=== PATIENT | female | born 1990 | race African-American/Black ===

== ENCOUNTER 2016-04-26 13:26 | Emergency (ER) | payer OTHER ==
[2016-04-26 13:31] VITALS: TEMP 97.9; BMI 32.8
--- NOTE | 2016-04-26 13:49 | PDOC ---
History of Present Illness - General Chief Complaint: Sickle Cell Crisis Stated Complaint: SICKLE CELL CRISIS Time Seen by Provider: 04/26/16 13:48 - History of Present Illness Initial Comments: 04/26/16 13:56 The pt is a 25 year old female with a significant PMH of sickle cell anemia, ( multiple hospitalizations for sickle cell crisis in the past, asplenic), esophageal varicose veins, portal hypertension, liver cirrhosis, hx of RA thrombus who comes to ED complaining of mid to lower back pain. It is severe, 7/ 10, constant, no radiation. She takes Oxycodone for pain but that hasn't helped her today. She denies chest pain, SOB, palpitations, abdominal pain, N/V, diarrhea, constipation. She denies fever, chills, muscle pain, dysuria. The pt was hospitalized in [facility] yesterday where she got IVF and pain medications. Past History - Past Medical History Allergies/Adverse Reactions: Allergies Allergy/AdvReac Type Severity Reaction Status Date / Time morphine Allergy Verified 04/26/16 13:31 Home Medications: Ambulatory Orders Apixaban [Eliquis] 10 mg DAILY 04/26/16 FENTANYL 25mcg PATCH [DURAGESIC 25mcg PATCH -] 1 each TD Q72H 04/26/16 Folic Acid 2 mg PO DAILY 04/26/16 Hydroxyurea [Hydrea] 500 mg PO BID 04/26/16 Nadolol 40 mg PO DAILY 04/26/16 Ondansetron HCl [Zofran] 4 mg PO ASDIR PRN 04/26/16 Oxycodone HCl 5 mg PO TID PRN 04/26/16 Anemia: (sickle cell) HTN: Yes (Portal hypertension) Liver Disease: Yes (Cirrhosis) - Surgical History Abdominal Surgery: Yes (spleen) Appendectomy: Yes Cholecystectomy: Yes - Psycho/Social/Smoking Cessation Hx Suicidal Ideation: No Smoking History: Never smoked Information on smoking cessation initiated: No Hx Alcohol Use: No Drug/Substance Use Hx: No Substance Use Type: None Review of Systems - Review of Systems Able to Perform ROS?: Yes Comments:: 04/26/16 14:06 REVIEW OF SYSTEMS CONSTITUTIONAL: Absent: fever, chills, diaphoresis, generalized weakness, malaise HEENT: Absent: rhinorrhea, nasal congestion, throat pain, throat swelling, difficulty swallowing CARDIOVASCULAR: Absent: chest pain, syncope, palpitations, irregular heart rate, lightheadedness , peripheral edema RESPIRATORY: Absent: cough, shortness of breath, dyspnea with exertion, orthopnea, wheezing GASTROINTESTINAL: Absent: abdominal pain, abdominal distension, nausea, vomiting, diarrhea, constipation, melena, hematochezia GENITOURINARY: Absent: dysuria, frequency, urgency, hesitancy, hematuria, flank pain, genital pain MUSCULOSKELETAL: mid to lower back pain Absent: myalgia, joint swelling, back pain, neck pain SKIN: Absent: rash, itching, pallor NEUROLOGIC: Absent: headache, focal weakness or paresthesias, dizziness, unsteady gait, seizure, mental status changes, bladder or bowel incontinence Is the patient limited Bermudian proficient: No *Physical Exam - Vital Signs Last Vital Signs Temp Pulse Resp BP Pulse Ox 97.9 F 78 18 131/76 100 04/26/16 13:28 04/26/16 13:28 04/26/16 13:28 04/26/16 13:28 04/26/16 13:28 - Physical Exam Comments: 04/26/16 14:09 GENERAL: The patient is awake, alert, and fully oriented, in no acute distress. HEAD: Normal with no signs of trauma. EYES: PERRL, extraocular movements intact, sclera anicteric, conjunctiva clear. No ptosis. ENT: Ears normal, nares patent, oropharynx clear without exudates, moist mucous membranes. NECK: Trachea midline, full range of motion, supple. LUNGS: Breath sounds equal, clear to auscultation bilaterally, no wheezes, no crackles, no accessory muscle use. HEART: Regular rate and rhythm, S1, S2 without murmur, rub or gallop. ABDOMEN: Obese, soft, nontender, nondistended, normoactive bowel sounds, no guarding, no rebound, no hepatosplenomegaly, no masses. EXTREMITIES: no edema. NEUROLOGICAL: Normal speech, no facial asymmetry, motor 5/5 in all extremities , gait not observed. PSYCH: Normal mood, normal affect. SKIN: Warm, dry, normal turgor, no rashes or lesions noted ED Treatment Course - LABORATORY CBC & Chemistry Diagram: 04/26/16 14:00 04/26/16 14:00 Medical Decision Making - Medical Decision Making 04/26/16 16:19 The pt is complaining of back pain. We are suspecting sickle cell crisis. We ordered CMP, chemistry, Reticulocyte count. The results were: Ret count 5.49, other laboratory shower no gross abnormalities. She was given Dilaudid 3 mg IV total, Benadryl 25 mg PO and NS 1 L. The pt clinically improved. She wanted to be discharged from ED. We recommended to see PCP in a week. *DC/Admit/Observation/Transfer Diagnosis at time of Disposition: Sickle cell anemia - Discharge Dispostion Disposition: HOME Condition at time of disposition: Improved Admit: No
[2016-04-26] MEDS ORDERED: SODIUM CHLORIDE 1,000 ML IV STA (13:55)
[2016-04-26] MEDS ORDERED: HYDROmorphone HCL CARPU-JECT 1 MG/1 ML DISP.SYRIN IVPB ONE ×3 (13:56→15:34)
[2016-04-26] MEDS ORDERED: HYDROmorphone HCL CARPU-JECT 1 MG/1 ML DISP.SYRIN ONE ×3 (14:01→15:38)
[2016-04-26] MEDS ORDERED: diphenhydrAMINE HCL 25 MG CAPSULE (FP) PO ONE ×2 (14:08→14:15)
[2016-04-26 14:15] LABS: MCH 31.6 pg (25.7-33.7)
[2016-04-26 14:25] LABS: MCHC 33.7 g/dl (32.0-36.0); MEAN CELL VOLUME 93.9 fl (80-96); MEAN PLT VOLUME 8.5 fl (7.5-11.1); PLATELET COUNT 273 K/MM3 (134-434); RDW 18.7 % (11.6-15.6); WHITE BLOOD COUNT 8.4 K/mm3 (4.0-10.0)
[2016-04-26 14:28] LABS: INR 1.19 (0.82-1.09); PROTHROMBIN TIME (PATIENT) 13.1 SEC (9.98-11.88)
[2016-04-26 15:15] LABS: ALBUMIN 3.7 g/dl (3.4-5.0); ANION GAP 11 (8-16); BILIRUBIN,TOTAL 1.4 mg/dL (0.2-1.0); CALCIUM 8.8 mg/dL (8.5-10.1); CO2 26 mmol/L (21-32); CREATININE 0.6 mg/dL (0.55-1.02); GLUCOSE,RANDOM 86 mg/dL (74-106); SGOT/AST 51 U/L (15-37); SGPT/ALT 26 U/L (12-78); TOT PROT 8.6 g/dl (6.4-8.2)
[2016-04-26 15:16] LABS: ALK PHOS 186 U/L (45-117)
[2016-04-26 15:37] LABS: PLATELET ESTIMATE ADEQUATE (NORMAL)
[2016-04-26 15:40] LABS: ANISOCYTOSIS 3+; HYPOCHROMIA 3+; MICROCYTOSIS FEW; POIKILOCYTOSIS 2+; POLYCHROMASIA 1+
[2016-04-26 15:41] LABS: OVALOCYTES FEW; TARGET CELLS 4+; TEAR DROP CELLS FEW
--- NOTE | 2016-04-26 16:24 | PDOC ---
Attending Attestation - Resident Resident Name: Cami Davis - ED Attending Attestation I have performed the following: I have examined & evaluated the patient, The case was reviewed & discussed with the resident, I agree w/resident's findings & plan - HPI HPI: 04/26/16 16:24 25y F hs of sickle cell on chronic pain meds, on fentanyl patch, follows with hematology at [facility] presents with lower back pain, c/w prior episodes - pt states her PO meds not helping. no associated fever/chills, headache, dizziness , cp, sob, palptiations, extremity pain or swelling. exam as documented by resident. Pts labs nreivewed - noted for retic of 5, hgb of 9.7. pt feeling better after receiving pain meds here. will d/c the pt with pmd/hemonc f/u return precautions were discussed - Physicial Exam PE: 04/27/16 08:35 see above - Medical Decision Making 04/27/16 08:35 see above
[2016-04-26 17:03] VITALS: BP 121/61; PULSE 74
== END 2016-04-26 17:03 | disposition home or self-care (01) ==
LOC: JER 13:26
PROC: 3E0337Z Introduction of Electrolytic and Water Balance Substance into Peripheral Vein, Percutaneous Approach (ICD-10-PCS; principal; 2016-04-26)
PROC: 3E033NZ Introduction of Analgesics, Hypnotics, Sedatives into Peripheral Vein, Percutaneous Approach (ICD-10-PCS; 2016-04-26)
DX: D57.00 Hb-SS disease with crisis, unspecified (principal); K76.6 Portal hypertension; K74.60 Unspecified cirrhosis of liver
CPT/HCPCS: 36415; 80053; 84703; 85025; 85044; 85610; 99284-25

== ENCOUNTER 2016-06-01 21:20 | Emergency (ER) | payer OTHER ==
--- NOTE | 2016-06-01 22:16 | PDOC ---
[id number]: BACK PAIN Time Seen by Provider: 06/01/16 22:16 History Source: Patient Exam Limitations: No Limitations - History of Present Illness Initial Comments: 06/02/16 00:01 This is a 26-year-old female who has history of sickle cell anemia and comes in complaining of a painful crisis. Patient eloped could complete my evaluation On examination of the patient. Past History - Past Medical History Allergies/Adverse Reactions: Allergies Allergy/AdvReac Type Severity Reaction Status Date / Time morphine Allergy Verified 04/26/16 13:31 Home Medications: Ambulatory Orders Apixaban [Eliquis] 10 mg DAILY 04/26/16 FENTANYL 25mcg PATCH [DURAGESIC 25mcg PATCH -] 1 each TD Q72H 04/26/16 Folic Acid 2 mg PO DAILY 04/26/16 Hydroxyurea [Hydrea] 500 mg PO BID 04/26/16 Nadolol 40 mg PO DAILY 04/26/16 Ondansetron HCl [Zofran] 4 mg PO ASDIR PRN 04/26/16 Oxycodone HCl 5 mg PO TID PRN 04/26/16 Anemia: (sickle cell) HTN: Yes (Portal hypertension) Liver Disease: Yes (Cirrhosis) - Surgical History Abdominal Surgery: Yes (spleen) Appendectomy: Yes Cholecystectomy: Yes - Psycho/Social/Smoking Cessation Hx Suicidal Ideation: No Smoking History: Never smoked Hx Alcohol Use: No Drug/Substance Use Hx: No Substance Use Type: None *DC/Admit/Observation/Transfer Diagnosis at time of Disposition: Eloped Sickle cell anemia Qualifiers: Sickle-cell associated disorders: with unspecified crisis Qualified Code(s): D57.00 - Hb-SS disease with crisis, unspecified; D57.0 - Hb-SS disease with crisis - Discharge Dispostion Disposition: ELOPED Condition at time of disposition: Good
[2016-06-01 22:21] VITALS: BP 113/66; PULSE 87; TEMP 97.8; BMI 33.1
[2016-06-01] MEDS ORDERED: HYDROmorphone HCL CARPU-JECT 1 MG/1 ML DISP.SYRIN IVPUSH ONE (22:29)
[2016-06-01] MEDS ORDERED: SODIUM CHLORIDE 1,000 ML IV ONE (22:29)
== END 2016-06-01 22:44 | disposition left against medical advice (07) ==
LOC: FER 21:20
DX: Z53.21 Procedure and treatment not carried out due to patient leaving prior to being seen by health care provider (principal); D57.00 Hb-SS disease with crisis, unspecified; K76.6 Portal hypertension; K74.60 Unspecified cirrhosis of liver; D64.9 Anemia, unspecified
CPT/HCPCS: 36415; 99283-25

== ENCOUNTER 2017-02-23 00:21 | Emergency (ER) | payer OTHER ==
--- NOTE | 2017-02-23 00:51 | PDOC ---
History of Present Illness - General History Source: Patient Exam Limitations: No Limitations - History of Present Illness Initial Comments: 02/23/17 01:07 The patient is a 26 year old female with past medical history of sickle cell anemia, esophageal varicose veins, portal hypertension, liver cirrhosis, and blood clots who presents to the ED with complaints of sickle cell crisis for the past few days. The patent complains of generalized pain all over her body as well as nausea. She states she took oxycodone and tylenol as well as a fentanyl patch which gave her no relief. She reports when she is in the ED she receives dilaudid, benadryl and zofran. She reports her crisis is similar to the ones she's had in the past. The patient denies fever, chills, vomiting, diarrhea, cough, SOB, or urinary symptoms. <Sarah Sanders - Last Filed: 02/23/17 01:07> <Concetta Miller - Last Filed: 02/23/17 01:25> <Yane Hernandez - Last Filed: 02/23/17 21:09> - General Chief Complaint: Pain Stated Complaint: PAIN,SICKLE CELL Time Seen by Provider: 02/23/17 00:51 Past History <Sarah Sanders - Last Filed: 02/23/17 01:07> - Past Medical History Anemia: (sickle cell) Cardiac Disorders: Yes (RIGHT ATRIAL CLOT (RESOLVED)) GI Disorders: Yes (BENIGN LIVER CYST) HTN: Yes (Portal hypertension) Liver Disease: Yes (Cirrhosis) - Surgical History Abdominal Surgery: Yes (spleen) Appendectomy: Yes Cholecystectomy: Yes - Suicide/Smoking/Psychosocial Hx Smoking History: Never smoked Have you smoked in the past 12 months: No Information on smoking cessation initiated: No Hx Alcohol Use: No Drug/Substance Use Hx: No Substance Use Type: None <Concetta Miller - Last Filed: 02/23/17 01:25> <Yane Hernandez - Last Filed: 02/23/17 21:09> - Past Medical History Allergies/Adverse Reactions: Allergies Allergy/AdvReac Type Severity Reaction Status Date / Time morphine Allergy Verified 02/23/17 00:37 Home Medications: Ambulatory Orders Apixaban [Eliquis] 10 mg DAILY 04/26/16 FENTANYL 25mcg PATCH [DURAGESIC 25mcg PATCH -] 1 each TD Q72H 04/26/16 Folic Acid 2 mg PO DAILY 04/26/16 Hydroxyurea [Hydrea] 500 mg PO BID 04/26/16 Nadolol 40 mg PO DAILY 04/26/16 Ondansetron HCl [Zofran] 4 mg PO ASDIR PRN 04/26/16 Oxycodone HCl 5 mg PO TID PRN 04/26/16 Review of Systems - Review of Systems Able to Perform ROS?: Yes Comments:: 02/23/17 01:11 GENERAL/CONSTITUTIONAL: No fever or chills. No weakness. HEAD, EYES, EARS, NOSE AND THROAT: No change in vision. No ear pain or discharge. No sore throat. CARDIOVASCULAR: No chest pain or shortness of breath. RESPIRATORY: No cough, wheezing, or hemoptysis. GASTROINTESTINAL: Present: nausea No vomiting, diarrhea or constipation. GENITOURINARY: No dysuria, frequency, or change in urination. MUSCULOSKELETAL: Present: generalized body aches SKIN: No rash NEUROLOGIC: No headache, vertigo, loss of consciousness, or change in strength/ sensation. ENDOCRINE: No increased thirst. No abnormal weight change. HEMATOLOGIC/LYMPHATIC: No anemia, easy bleeding, or history of blood clots. ALLERGIC/IMMUNOLOGIC: No hives or skin allergy. All Other Systems: Reviewed and Negative <Sarah Sanders - Last Filed: 02/23/17 01:07> *Physical Exam - Vital Signs Last Vital Signs Temp Pulse Resp BP Pulse Ox 98.4 F 87 20 114/71 98 02/23/17 00:37 02/23/17 00:37 02/23/17 00:37 02/23/17 00:37 02/23/17 00:37 - Physical Exam Comments: 02/23/17 01:12 GENERAL: Awake, alert, and fully oriented, in no acute distress HEAD: No signs of trauma EYES: PERRLA, EOMI, sclera anicteric, conjunctiva clear ENT: Auricles normal inspection, hearing grossly normal, nares patent, oropharynx clear without exudates. Moist mucosa NECK: Normal ROM, supple, no lymphadenopathy, JVD, or masses LUNGS: Breath sounds equal, clear to auscultation bilaterally. No wheezes, and no crackles HEART: Regular rate and rhythm, normal S1 and S2, no murmurs, rubs or gallops ABDOMEN: Soft, nontender, normoactive bowel sounds. No guarding, no rebound. No masses EXTREMITIES: Normal range of motion, no edema. No clubbing or cyanosis. No cords, erythema, or tenderness NEUROLOGICAL: Cranial nerves II through XII grossly intact. Normal speech, normal gait SKIN: Warm, Dry, normal turgor, no rashes or lesions noted. <Sarah Sanders - Last Filed: 02/23/17 01:07> - Vital Signs Last Vital Signs Temp Pulse Resp BP Pulse Ox 98.4 F 87 20 114/71 98 02/23/17 00:37 02/23/17 00:37 02/23/17 00:37 02/23/17 00:37 02/23/17 00:37 <Concetta Miller - Last Filed: 02/23/17 01:25> - Vital Signs Last Vital Signs Temp Pulse Resp BP Pulse Ox 98.4 F 87 20 114/71 98 02/23/17 00:37 02/23/17 00:37 02/23/17 00:37 02/23/17 00:37 02/23/17 00:37 <Yane Hernandez - Last Filed: 02/23/17 21:09> ED Treatment Course - LABORATORY CBC & Chemistry Diagram: 02/23/17 02:00 02/23/17 02:00 - ADDITIONAL ORDERS Additional order review: Laboratory Results 02/23/17 02:00 Sodium 141 Potassium 4.0 Chloride 101 Carbon Dioxide 31 Anion Gap 9 BUN 12 Creatinine 0.8 Creat Clearance w eGFR > 60 Random Glucose 109 H Calcium 8.7 Total Bilirubin 1.3 H AST 51 H ALT 27 Alkaline Phosphatase 179 H Total Protein 8.5 H Albumin 3.5 02/23/17 02:00 RBC 3.25 L MCV 91.5 MCHC 33.3 RDW 17.4 H MPV 8.1 Neutrophils % 57.7 D Lymphocytes % 26.6 D Monocytes % 14.0 H Eosinophils % 1.0 Basophils % 0.7 - Medications Given in the ED: ED Medications Discontinued Medications Generic Name Dose Route Start Last Admin Trade Name Freq PRN Reason Stop Dose Admin Diphenhydramine HCl 50 mg 02/23/17 01:08 02/23/17 02:02 Benadryl Injection - IVPUSH 02/23/17 01:09 50 mg ONCE ONE Administration Diphenhydramine HCl 50 mg 02/23/17 03:44 02/23/17 04:21 Benadryl - PO 02/23/17 03:45 Not Given ONCE ONE Diphenhydramine HCl 50 mg 02/23/17 04:08 02/23/17 04:21 Benadryl Injection - IVPB 02/23/17 04:09 50 mg ONCE ONE Administration Hydromorphone HCl 2 mg 02/23/17 01:08 02/23/17 02:02 Dilaudid Injection - IVPUSH 02/23/17 01:09 2 mg ONCE ONE Administration Hydromorphone HCl 2 mg 02/23/17 04:08 02/23/17 04:21 Dilaudid Injection - IVPUSH 02/23/17 04:09 2 mg ONCE ONE Administration Ondansetron HCl 4 mg 02/23/17 01:08 02/23/17 02:02 Zofran Injection IVPUSH 02/23/17 01:09 4 mg ONCE ONE Administration <Yane Hernandez - Last Filed: 02/23/17 21:09> Medical Decision Making - Medical Decision Making 02/23/17 01:25 pt presents to the ED complaining of generalized body pain consistent with prior sickle cell crises. Denies fever, chest pain and shortness of breath. Will check labs to rule out severe anemia and retic count to rule out aplastic crisis. Will give pain control and reassess. <Concetta Miller - Last Filed: 02/23/17 01:25> - Medical Decision Making 02/23/17 21:07 Pt given 2 more rounds of dilaudid and benadryl and she was discharged. <Yane Hernandez - Last Filed: 02/23/17 21:09> *DC/Admit/Observation/Transfer - Attestations Scribe Attestion: 02/23/17 01:13 Documentation prepared by Sarah Sanders, acting as medical device assembler for Concetta Miller MD. <Sarah Sanders - Last Filed: 02/23/17 01:07> <Concetta Miller - Last Filed: 02/23/17 01:25> - Discharge Dispostion Admit: No <Yane Hernandez - Last Filed: 02/23/17 21:09> Diagnosis at time of Disposition: Sickle cell anemia - Discharge Dispostion Disposition: HOME Condition at time of disposition: Stable - Patient Instructions Printed Discharge Instructions: Sickle Cell Disease (Alternative Therapy), DI for Chronic Neck Pain
[2017-02-23 00:56] VITALS: BP 114/71; PULSE 87; TEMP 98.4; BMI 38.9
[2017-02-23] MEDS ORDERED: ONDANSETRON 4 MG/2 ML VIAL IVPUSH ONE (01:08)
[2017-02-23] MEDS ORDERED: HYDROmorphone HCL CARPU-JECT 2 MG/1 ML DISP.SYRIN IVPUSH ONE ×3 (01:08→05:49)
[2017-02-23] MEDS ORDERED: HYDROmorphone HCL CARPU-JECT 2 MG/1 ML DISP.SYRIN ONE ×4 (01:13→06:10)
[2017-02-23] MEDS ORDERED: ONDANSETRON 4 MG/2 ML VIAL ONE ×2 (01:14→06:10)
[2017-02-23 02:09] LABS: BASO % 0.7 % (0-2.0); HEMATOCRIT 29.8 % (32.4-45.2); HEMOGLOBIN 9.9 GM/dL (10.7-15.3); LYMPH % 26.6 % (8-40); MCH 30.5 pg (25.7-33.7); MCHC 33.3 g/dl (32.0-36.0); MEAN CELL VOLUME 91.5 fl (80-96); MEAN PLT VOLUME 8.1 fl (7.5-11.1); NEUT % 57.7 % (42.8-82.8); PLATELET COUNT 252 K/MM3 (134-434); RBC 3.25 M/mm3 (3.60-5.2); RDW 17.4 % (11.6-15.6); RETICULOCYTES 4.36 % (0.5-1.5); WHITE BLOOD COUNT 8.7 K/mm3 (4.0-10.0)
[2017-02-23 02:45] LABS: ALBUMIN 3.5 g/dl (3.4-5.0); ANION GAP 9 (8-16); BILIRUBIN,TOTAL 1.3 mg/dL (0.2-1.0); BLOOD UREA NITROGEN 12 mg/dL (7-18); CALCIUM 8.7 mg/dL (8.5-10.1); CHLORIDE 101 mmol/L (98-107); CO2 31 mmol/L (21-32); CREATININE 0.8 mg/dL (0.55-1.02); GLUCOSE,RANDOM 109 mg/dL (74-106); SGOT/AST 51 U/L (15-37); SGPT/ALT 27 U/L (12-78); SODIUM 141 mmol/L (136-145); TOT PROT 8.5 g/dl (6.4-8.2)
[2017-02-23 02:46] LABS: ALK PHOS 179 U/L (45-117)
[2017-02-23] MEDS ORDERED: diphenhydrAMINE HCL 50 MG CAPSULE PO ONE (03:44)
[2017-02-23] MEDS ORDERED: diphenhydrAMINE HCL 25 MG CAPSULE (FP) PO ONE (03:47)
[2017-02-23 04:36] LABS: SICKLE CELL SCREEN POSITIVE (NEGATIVE)
== END 2017-02-23 07:19 | disposition home or self-care (01) ==
LOC: JER 00:21
PROC: 3E033NZ Introduction of Analgesics, Hypnotics, Sedatives into Peripheral Vein, Percutaneous Approach (ICD-10-PCS; principal; 2017-02-23)
PROC: 3E033GC Introduction of Other Therapeutic Substance into Peripheral Vein, Percutaneous Approach (ICD-10-PCS; 2017-02-23)
PROC: 3E033GC Introduction of Other Therapeutic Substance into Peripheral Vein, Percutaneous Approach (ICD-10-PCS; 2017-02-23)
DX: D57.00 Hb-SS disease with crisis, unspecified (principal); K74.69 Other cirrhosis of liver; K76.6 Portal hypertension; I85.10 Secondary esophageal varices without bleeding
CPT/HCPCS: 36415; 80053; 83021; 85025; 85044; 85660; 96374; 96375; 96376; 99282-25

== ENCOUNTER 2017-03-28 21:11 | Emergency (ER) | payer OTHER ==
[2017-03-28 22:11] VITALS: BP 100/60; PULSE 78; TEMP 98.5; BMI 38.9
--- NOTE | 2017-03-29 00:28 | PDOC ---
History of Present Illness - General Chief Complaint: Sickle Cell Crisis Stated Complaint: SICKLE CELL CRISIS Time Seen by Provider: 03/28/17 23:55 History Source: Patient Exam Limitations: No Limitations - History of Present Illness Initial Comments: 03/29/17 00:31 26F w pmh of sickle cell anemia, esophageal varicose veins, portal hypertension , liver cirrhosis, and blood clots who presents to the ED with complaints of sickle cell crisis today. Complains of generalized pain all over her body as well as nausea. She states she took her usual 20mg oxycodone and fentanyl patch which gave her no relief. She reports when she is in the ED she receives dilaudid, benadryl and zofran. She reports her crisis is similar to the ones she 's had in the past. The patient denies fever, chills, vomiting, diarrhea, cough , SOB, or urinary symptoms. Past History - Past Medical History Allergies/Adverse Reactions: Allergies Allergy/AdvReac Type Severity Reaction Status Date / Time morphine Allergy Verified 03/28/17 22:11 Home Medications: Ambulatory Orders Apixaban [Eliquis] 10 mg DAILY 04/26/16 FENTANYL 25mcg PATCH [DURAGESIC 25mcg PATCH -] 1 each TD Q72H 04/26/16 Folic Acid 2 mg PO DAILY 04/26/16 Hydroxyurea [Hydrea] 500 mg PO BID 04/26/16 Nadolol 40 mg PO DAILY 04/26/16 Ondansetron HCl [Zofran] 4 mg PO ASDIR PRN 04/26/16 Oxycodone HCl 5 mg PO TID PRN 04/26/16 Anemia: (sickle cell) Cardiac Disorders: Yes (RIGHT ATRIAL CLOT (RESOLVED)) COPD: No GI Disorders: Yes (BENIGN LIVER CYST) HTN: Yes (Portal hypertension) Liver Disease: Yes (Cirrhosis) - Surgical History Abdominal Surgery: Yes (spleen) Appendectomy: Yes Cholecystectomy: Yes - Suicide/Smoking/Psychosocial Hx Smoking History: Never smoked Have you smoked in the past 12 months: No Information on smoking cessation initiated: No Hx Alcohol Use: No Drug/Substance Use Hx: No Substance Use Type: None Review of Systems - Review of Systems Able to Perform ROS?: Yes Is the patient limited Upper Sorbian proficient: No Constitutional: No: Symptoms Reported HEENTM: No: Symptoms Reported Respiratory: No: Symptoms reported Cardiac (ROS): No: Symptoms Reported ABD/GI: No: Symptoms Reported : No: Symptoms Reported Musculoskeletal: Yes: See HPI Neurological: No: Symptoms reported Endocrine: No: Symptoms Reported Hematologic/Lymphatic: No: Symptoms Reported All Other Systems: Reviewed and Negative *Physical Exam - Vital Signs Last Vital Signs Temp Pulse Resp BP Pulse Ox 98.5 F 78 18 100/60 100 03/28/17 22:08 03/28/17 22:08 03/28/17 22:08 03/28/17 22:08 03/28/17 22:08 - Physical Exam General Appearance: Yes: Nourished, Appropriately Dressed, Moderate Distress HEENT: positive: EOMI, RANULFO, Normal ENT Inspection Neck: negative: Tender Respiratory/Chest: positive: Lungs Clear, Normal Breath Sounds. negative: Chest Tender, Respiratory Distress Cardiovascular: positive: Regular Rhythm, Regular Rate, S1, S2 Gastrointestinal/Abdominal: positive: Normal Bowel Sounds, Flat, Soft. negative : Tender Extremity: positive: Normal Capillary Refill, Normal Inspection Integumentary: positive: Normal Color, Dry, Warm Neurologic: positive: Fully Oriented, Alert, Normal Mood/Affect, Normal Response , Motor Strength 5/5 Medical Decision Making - Medical Decision Making 03/29/17 00:36 Patient to receive dilaudid/benadryl/zofran through catheter 03/29/17 05:38 2 series of medication. with NS bolus. Heparin flush and discharged. *DC/Admit/Observation/Transfer Diagnosis at time of Disposition: Sickle cell crisis - Discharge Dispostion Disposition: HOME Admit: No - Referrals - Patient Instructions Printed Discharge Instructions: DI for Sickle Cell Anemia, Pain Crisis -- Adult Additional Instructions: Come back to the Er for any new, worsening or concerning symptom. Follow up with your primary care provider for management of your illness within the next 2-3 days. - Post Discharge Activity
[2017-03-29] MEDS ORDERED: HYDROmorphone HCL CARPU-JECT 2 MG/1 ML DISP.SYRIN IVPUSH ONE ×3 (00:29→04:31)
[2017-03-29] MEDS ORDERED: ONDANSETRON 4 MG/2 ML VIAL IVPUSH ONE (00:29)
[2017-03-29] MEDS ORDERED: HYDROmorphone HCL CARPU-JECT 1 MG/1 ML DISP.SYRIN ONE ×2 (01:02→02:40)
[2017-03-29] MEDS ORDERED: ONDANSETRON 4 MG/2 ML VIAL ONE (01:02)
--- NOTE | 2017-03-29 01:21 | PDOC ---
Attending Attestation - HPI HPI: 03/29/17 01:29 The patient is a 26 year old female with a significant PMH of sickle cell anemia , portal HTN, esophageal varicose veins, and liver cirrhosis who presents to the emergency department for evaluation of sickle cell crisis. She reports generalized pain and nausea beginning today. She reports taking her usual oxycodone and fentanyl doses to minimal relief. She presents requesting dilaudid , benadryl, and zofran. She denies chest pain, shortness of breath, or fever. Allergies: Morphine <Curtis Mojica - Last Filed: 03/29/17 02:03> - Resident Resident Name: Nicholas Schmitt - ED Attending Attestation I have performed the following: I have examined & evaluated the patient, The case was reviewed & discussed with the resident, I agree w/resident's findings & plan, Exceptions are as noted - Physicial Exam PE: 03/29/17 02:39 *Physical Exam General Appearance: Yes: Appropriately Dressed, moderate distress No: Intoxicated HEENT: positive: EOMI, RANULFO, Normal ENT Inspection, Normal Voice, TMs Normal, Pharynx Normal. negative: Pale Conjunctivae, Photophobia, Scleral Icterus (R), Scleral Icterus (L) Neck: positive: Trachea midline, Normal Thyroid, Supple. negative: Tender, Rigid, Carotid bruit, Stridor, Lymphadenopathy (R), Lymphadenopathy (L), Thyromegaly Respiratory/Chest: positive: Lungs Clear, Normal Breath Sounds. port in right upper chest negative: Chest Tender, Respiratory Distress, Accessory Muscle Use, Labored Respiration, RES, Crackles, Rales, Rhonchi, Stridor, Wheezing, Dullness Cardiovascular: positive: Regular Rhythm, Regular Rate, S1, S2. negative: Edema , JVD, Murmur, Bradycardia, Tachycardia Vascular Pulses: Dorsalis-Pedis (R): 2+, Doralis-Pedis (L): 2+ Gastrointestinal/Abdominal: positive: Normal Bowel Sounds, Flat, Soft. negative : Tender, Organomegaly, Pulsatile Mass, Increased Bowel Sounds, Decreased BS, Distended, Guarding, Rebound, Hernia, Hepatomegaly, Spleenomegaly Lymphatic: negative: Adenopathy, Tenderness Musculoskeletal: positive: Normal Inspection. negative: CVA Tenderness, Decreased Range of Motion Extremity: positive: Normal Capillary Refill, Normal Inspection, Normal Range of Motion, Pelvis Stable. negative: Tender, Pedal Edema, Swelling, Erythema Integumentary: positive: Normal Color, Dry, Warm. negative: Cyanotic, Erythema , Jaundice, Rash Neurologic: positive: research leader II-XII NML intact, Fully Oriented, Alert, Normal Mood/ Affect, Motor Strength 5/5. negative: EOM Palsy, Facial Droop, Sensory Deficit <Walker Disla - Last Filed: 03/29/17 02:40>
[2017-03-29] MEDS ORDERED: HYDROmorphone HCl/Pf 2 MG/ML VIAL - FOR OR PYXIS USE ONE ×2 (03:04→04:36)
[2017-03-29] MEDS ORDERED: SODIUM CHLORIDE 1,000 ML IV STA (04:43)
== END 2017-03-29 06:08 | disposition home or self-care (01) ==
LOC: JER 21:11
PROC: 3E033NZ Introduction of Analgesics, Hypnotics, Sedatives into Peripheral Vein, Percutaneous Approach (ICD-10-PCS; principal; 2017-03-28)
DX: D57.00 Hb-SS disease with crisis, unspecified (principal); K76.6 Portal hypertension; I85.10 Secondary esophageal varices without bleeding; K74.69 Other cirrhosis of liver; I74.9 Embolism and thrombosis of unspecified artery
CPT/HCPCS: 99282-25

== ENCOUNTER 2017-04-09 12:33 | Emergency (ER) | payer OTHER ==
[2017-04-09 12:44] VITALS: BP 136/98; PULSE 78; TEMP 98; BMI 38.9
[2017-04-09] MEDS ORDERED: HYDROmorphone HCL CARPU-JECT 2 MG/1 ML DISP.SYRIN IVPUSH ONE ×3 (13:06→17:35)
[2017-04-09] MEDS ORDERED: ONDANSETRON 4 MG/2 ML VIAL IVPUSH ONE (13:06)
[2017-04-09] MEDS ORDERED: SODIUM CHLORIDE 1,000 ML IV STA ×2 (13:07→14:42)
--- NOTE | 2017-04-09 13:14 | PDOC ---
History of Present Illness - General Chief Complaint: Pain Stated Complaint: WEAKNESS/SCC Time Seen by Provider: 04/09/17 12:57 History Source: Patient Exam Limitations: No Limitations - History of Present Illness Initial Comments: 04/09/17 13:14 26-year-old female presents to the ED with complaints of generalized ankle pain which she describes a throbbing pressure associated with mild edema. Patient states she feels her sickle cell disease is in crisis which was attributed to a recent GI bug that she she states she contracted from her 7-year-old daughter. Patient does complain of nausea, vomiting, generalized abdominal cramping and 2 episodes of diarrhea over the past 4 days. Patient states when she is in crisis she normally receives Benadryl, Zofran IV fluids and Dilaudid. Patient states is currently on a fentanyl patch and took oxycodone this morning with minimal relief. Patient denies fever, chills, chest pain, shortness of breath or cough. Patient denies headache or sore throat, visual changes. Timing/Duration: constant, getting worse Severity: moderate Associated Symptoms: reports: nausea/vomiting, weakness (mild generalized) Past History - Travel Traveled outside of the country in the last 30 days: No - Past Medical History Allergies/Adverse Reactions: Allergies Allergy/AdvReac Type Severity Reaction Status Date / Time morphine Allergy Verified 04/09/17 12:40 Home Medications: Ambulatory Orders Apixaban [Eliquis] 10 mg DAILY 04/26/16 FENTANYL 25mcg PATCH [DURAGESIC 25mcg PATCH -] 1 each TD Q72H 04/26/16 Folic Acid 2 mg PO DAILY 04/26/16 Hydroxyurea [Hydrea] 500 mg PO BID 04/26/16 Nadolol 40 mg PO DAILY 04/26/16 Ondansetron HCl [Zofran] 4 mg PO ASDIR PRN 04/26/16 Oxycodone HCl 5 mg PO TID PRN 04/26/16 Anemia: (sickle cell) Cardiac Disorders: Yes (RIGHT ATRIAL CLOT (RESOLVED)) COPD: No DVT: No GI Disorders: Yes (BENIGN LIVER CYST) HTN: Yes (Portal hypertension) Liver Disease: Yes (Cirrhosis) - Surgical History Abdominal Surgery: Yes (spleen) Appendectomy: Yes Cholecystectomy: Yes - Suicide/Smoking/Psychosocial Hx Smoking History: Never smoked Have you smoked in the past 12 months: No Information on smoking cessation initiated: No Hx Alcohol Use: No Drug/Substance Use Hx: No Substance Use Type: None Patient Lives Alone: No Lives with/in: spouse/SO Review of Systems - Review of Systems Able to Perform ROS?: Yes Constitutional: Yes: Weakness HEENTM: No: Symptoms Reported Respiratory: No: Symptoms reported Cardiac (ROS): No: Symptoms Reported ABD/GI: Yes: Nausea, Vomiting, Abdominal cramping : No: Symptoms Reported Musculoskeletal: Yes: Joint Pain (bilateral ankles) Integumentary: No: Symptoms Reported Neurological: Yes: Weakness (mild generalized) Endocrine: No: Symptoms Reported *Physical Exam - Vital Signs Last Vital Signs Temp Pulse Resp BP Pulse Ox 98.0 F 78 18 136/98 100 04/09/17 12:41 04/09/17 12:41 04/09/17 12:41 04/09/17 12:41 04/09/17 12:41 - Physical Exam General Appearance: Yes: Nourished, Appropriately Dressed. No: Apparent Distress HEENT: positive: Pharynx Normal (dry). negative: Pale Conjunctivae Neck: positive: Supple Respiratory/Chest: positive: Lungs Clear, Normal Breath Sounds. negative: Respiratory Distress, Accessory Muscle Use Cardiovascular: positive: Regular Rhythm, Regular Rate. negative: Murmur Vascular Pulses: Dorsalis-Pedis (R): 2+, Doralis-Pedis (L): 2+ Gastrointestinal/Abdominal: positive: Soft. negative: Tenderness Extremity: positive: Normal Capillary Refill, Normal Range of Motion, Tender ( to bilateral ankles with noted mild nonpitting edema without increased warmth) Integumentary: positive: Normal Color, Warm, Moist Neurologic: positive: Motor Strength 5/5 (ambulatory) ED Treatment Course - LABORATORY CBC & Chemistry Diagram: 04/09/17 13:14 04/09/17 14:00 Medical Decision Making - Medical Decision Making 04/09/17 13:20 Patient complains of sickle cell crisis likely due to recent GI symptoms, change in weather, and has been unrelieved with her fentanyl and oxycodone. Patient states takes her daily hydroxyurea and folic acid as prescribed. Patient on exam with bilateral malleolar tenderness with mild edema . Differential diagnosis electrolyte imbalance, sickle cell crisis, dehydration Patient ordered for labs including magnesium, urine and urine , retic count, IV fluids, antiemetics, Benadryl and Dilaudid 04/09/17 15:49 Laboratory Tests 04/26/16 06/01/16 02/23/17 14:00 22:29 02:00 WBC Hgb 9.7 L 9.9 L Hct 29.0 L 29.8 L Monocytes % (Manual) Nucleated RBC % Retic Count 5.49 H Cancelled 4.36 H D Sodium Potassium Chloride Carbon Dioxide Anion Gap BUN Creatinine Random Glucose Calcium Magnesium Total Bilirubin AST ALT Alkaline Phosphatase Total Protein Urine Ketones Urine Blood Urine Nitrite Urine Urobilinogen Ur Leukocyte Esterase Urine WBC (Auto) Urine Bacteria Urine HCG, Qual 04/09/17 04/09/17 04/09/17 13:14 13:15 14:00 WBC 8.9 Hgb 9.6 L Hct 29.2 L Monocytes % (Manual) 11 H Nucleated RBC % 1 H Retic Count 7.33 H D Sodium 140 Potassium 4.2 Chloride 103 Carbon Dioxide 26 Anion Gap 11 BUN 7 Creatinine 0.6 Random Glucose 93 Calcium 9.2 Magnesium 2.1 Total Bilirubin 1.5 H AST 40 H ALT 21 Alkaline Phosphatase 176 H Total Protein 8.4 H Urine Ketones Negative Urine Blood 1+ H Urine Nitrite Negative Urine Urobilinogen 4.0 e.u/dl H Ur Leukocyte Esterase Trace Urine WBC (Auto) 2 Urine Bacteria Rare Urine HCG, Qual Negative Patient ordered for second dose of Dilaudid secondary to continual complaints of discomfort. Patient ordered for the additional 25 mg of Benadryl along with another bag of IV fluid. Patient voiced she is not being admitted. 04/09/17 17:36 Patient remains with approximately 500 mL of normal saline left the back. Patient placed on the pump to encourage fast infusion. Patient also requesting another dose of Dilaudid secondary to pain 10 out of 10. Patient ordered for 2 mg of Dilaudid along with 25 mg of Benadryl. Attending Dr. Pugh agrees with plan. *DC/Admit/Observation/Transfer Diagnosis at time of Disposition: Sickle cell crisis - Discharge Dispostion Disposition: HOME Condition at time of disposition: Fair - Referrals - Patient Instructions Printed Discharge Instructions: Sickle Cell Disease (Alternative Therapy) Additional Instructions: Please follow-up with your band nailer and continue with the medication for sickle cell disease. Please stay well-hydrated. Eat small frequent meals if pain worsens or symptoms worsen. Please return to the nearest ER. - Post Discharge Activity
[2017-04-09 13:30] LABS: HCG,QUALITATIVE URINE NEGATIVE
[2017-04-09 13:31] LABS: URINE APPEARANCE SLCLOUDY; URINE BILIRUBIN NEGATIVE (NEGATIVE); URINE BLOOD 1+ (NEGATIVE); URINE COLOR LTYELLOW; URINE GLUCOSE (UA) NEGATIVE (NEGATIVE); URINE KETONE NEGATIVE (NEGATIVE); URINE LEUK ESTERASE TRACE (NEGATIVE); URINE NITRITE NEGATIVE (NEGATIVE); URINE PROTEIN NEGATIVE (NEGATIVE); URINE UROBILINOGEN 4.0 E.U/dl mg/dL (0.2-1.0)
[2017-04-09 13:38] LABS: EPI CELLS MODERATE /HPF (FEW); URINE BACTERIA RARE /hpf (NONE SEEN); URINE MUCUS RARE
[2017-04-09] MEDS ORDERED: HYDROmorphone HCl/Pf 2 MG/ML VIAL - FOR OR PYXIS USE ONE ×3 (14:03→17:39)
[2017-04-09] MEDS ORDERED: ONDANSETRON 4 MG/2 ML VIAL ONE (14:04)
[2017-04-09 14:22] LABS: HEMATOCRIT 29.2 % (32.4-45.2); HEMOGLOBIN 9.6 GM/dL (10.7-15.3); MCH 29.2 pg (25.7-33.7); MCHC 32.8 g/dl (32.0-36.0); MEAN PLT VOLUME 8.4 fl (7.5-11.1); PLATELET COUNT 259 K/MM3 (134-434); RBC 3.28 M/mm3 (3.60-5.2); RDW 19.9 % (11.6-15.6); RETICULOCYTES 7.33 % (0.5-1.5); WHITE BLOOD COUNT 8.9 K/mm3 (4.0-10.0)
[2017-04-09 14:24] LABS: ADD RBC MORPHOLOGY YES
[2017-04-09 14:34] LABS: ALBUMIN 3.4 g/dl (3.4-5.0); ANION GAP 11 (8-16); BLOOD UREA NITROGEN 7 mg/dL (7-18); CALCIUM 9.2 mg/dL (8.5-10.1); CHLORIDE 103 mmol/L (98-107); CO2 26 mmol/L (21-32); GLUCOSE,RANDOM 93 mg/dL (74-106); MAGNESIUM 2.1 mg/dL (1.8-2.4); POTASSIUM 4.2 mmol/L (3.5-5.1); SODIUM 140 mmol/L (136-145)
[2017-04-09 14:37] LABS: ALK PHOS 176 U/L (45-117); BILIRUBIN,TOTAL 1.5 mg/dL (0.2-1.0); CREATININE 0.6 mg/dL (0.55-1.02); SGOT/AST 40 U/L (15-37); SGPT/ALT 21 U/L (12-78); TOT PROT 8.4 g/dl (6.4-8.2)
[2017-04-09 15:21] LABS: ANISOCYTOSIS 3+; MACROCYTOSIS 2+; SICKELED CELLS 4+; TARGET CELLS 4+
[2017-04-09 15:22] LABS: PLATELET ESTIMATE ADEQUATE
--- NOTE | 2017-04-09 16:34 | PDOC ---
*Physical Exam - Vital Signs Last Vital Signs Temp Pulse Resp BP Pulse Ox 98.0 F 78 18 136/98 100 04/09/17 12:41 04/09/17 12:41 04/09/17 12:41 04/09/17 12:41 04/09/17 12:41 ED Treatment Course - LABORATORY CBC & Chemistry Diagram: 04/09/17 13:14 04/09/17 14:00 - ADDITIONAL ORDERS Additional order review: Laboratory Results 04/09/17 04/09/17 14:00 13:15 Sodium 140 Potassium 4.2 Chloride 103 Carbon Dioxide 26 Anion Gap 11 BUN 7 Creatinine 0.6 Creat Clearance w eGFR > 60 Random Glucose 93 Calcium 9.2 Magnesium 2.1 Total Bilirubin 1.5 H AST 40 H ALT 21 Alkaline Phosphatase 176 H Total Protein 8.4 H Albumin 3.4 Urine Color Ltyellow Urine Appearance Slcloudy Urine pH 7.0 Ur Specific [place] 1.006 Urine Protein Negative Urine Glucose (UA) Negative Urine Ketones Negative Urine Blood 1+ H Urine Nitrite Negative Urine Bilirubin Negative Urine Urobilinogen 4.0 e.u/dl H Ur Leukocyte Esterase Trace Urine WBC (Auto) 2 Urine RBC (Auto) None Ur Epithelial Cells Moderate Urine Bacteria Rare Urine Mucus Rare Urine HCG, Qual Negative 04/09/17 13:14 RBC 3.28 L MCV 89.0 MCHC 32.8 RDW 19.9 H D MPV 8.4 Neutrophils % No Result Required. Lymphocytes % No Result Required. - Medications Given in the ED: ED Medications Discontinued Medications Generic Name Dose Route Start Last Admin Trade Name Kevinq PRN Reason Stop Dose Admin Diphenhydramine HCl 25 mg 04/09/17 13:05 04/09/17 14:16 Benadryl Injection - IVPB 04/09/17 13:06 25 mg ONCE ONE Administration Diphenhydramine HCl 25 mg 04/09/17 15:26 04/09/17 15:49 Benadryl Injection - IVPB 04/09/17 15:27 25 mg ONCE ONE Administration Hydromorphone HCl 2 mg 04/09/17 13:06 04/09/17 14:16 Dilaudid Injection - IVPUSH 04/09/17 13:07 2 mg ONCE ONE Administration Hydromorphone HCl 2 mg 04/09/17 15:26 04/09/17 15:49 Dilaudid Injection - IVPUSH 04/09/17 15:27 2 mg ONCE ONE Administration Sodium Chloride 1,000 mls @ 1,000 mls/hr 04/09/17 13:07 04/09/17 14:16 Normal Saline - IV 04/09/17 14:06 1,000 mls/hr ASDIR STA Administration Sodium Chloride 1,000 mls @ 1,000 mls/hr 04/09/17 14:42 04/09/17 15:49 Normal Saline - IV 04/09/17 15:41 1,000 mls/hr ASDIR STA Administration Ondansetron HCl 4 mg 04/09/17 13:06 04/09/17 14:16 Zofran Injection IVPUSH 04/09/17 13:07 4 mg ONCE ONE Administration Medical Decision Making - Medical Decision Making 04/09/17 16:33 Seen with MLP and agree with care as outlined: 26y/o F with her typical sickle cell crisis in the setting of acute GI illness and dehydration. VSS agree with exam. labs at baseline, slightly elevated retic count received iv fluid rehydration,pain control requesting discharge, understands return criteria. *DC/Admit/Observation/Transfer Diagnosis at time of Disposition: Sickle cell crisis - Referrals - Patient Instructions - Post Discharge Activity
== END 2017-04-09 19:06 | disposition home or self-care (01) ==
LOC: JER 12:33
PROC: 3E033NZ Introduction of Analgesics, Hypnotics, Sedatives into Peripheral Vein, Percutaneous Approach (ICD-10-PCS; principal; 2017-04-09)
PROC: 3E033GC Introduction of Other Therapeutic Substance into Peripheral Vein, Percutaneous Approach (ICD-10-PCS; 2017-04-09)
PROC: 3E033GC Introduction of Other Therapeutic Substance into Peripheral Vein, Percutaneous Approach (ICD-10-PCS; 2017-04-09)
DX: D57.00 Hb-SS disease with crisis, unspecified (principal); K76.6 Portal hypertension; K74.60 Unspecified cirrhosis of liver; Z86.718 Personal history of other venous thrombosis and embolism
CPT/HCPCS: 36415; 80053; 81003; 81015; 83735; 84703; 85025; 85044; 96374; 96375; 96376; 99284-25

== ENCOUNTER 2017-04-30 13:03 | Emergency (ER) | payer OTHER ==
[2017-04-30 13:09] VITALS: BP 116/93; TEMP 98.1; BMI 38.9
[2017-04-30] MEDS ORDERED: ONDANSETRON 4 MG/2 ML VIAL IVPUSH ONE (14:38)
[2017-04-30] MEDS ORDERED: SODIUM CHLORIDE 1,000 ML IV ONE (14:38)
[2017-04-30] MEDS ORDERED: HYDROmorphone HCL CARPU-JECT 2 MG/1 ML DISP.SYRIN IVPUSH ONE (14:38)
[2017-04-30] MEDS ORDERED: APIXABAN 5 MG TABLET PO ONE (14:38)
--- NOTE | 2017-04-30 14:46 | PDOC ---
History of Present Illness - General History Source: Patient Exam Limitations: No Limitations - History of Present Illness Initial Comments: 04/30/17 14:57 The patient is a 26 year old female, with a significant past medical history of sickle cell anemia, esophageal varicose veins, portal hypertension, liver cirrhosis, hypertension, benign tumor of liver, blood clots, who presents to the emergency department for evaluation of, sickle cell crisis. The patient states she has been having generalized body aches since Saturday (2 days ago) and associated symptoms of nausea without vomiting and headache. The patient states she has been taking oxycodone and fentanyl for the body aches with minimal relief. The patient reports increased stressors in her life and the recent cold weather may be related to her sickle cell crisis. The patient states she has a business line controller at [facility] who she follows with for her sickle cell anemia with her next appointment next 05/09/17. She denies recent fevers, chills, or dizziness. She denies recent vomit, diarrhea or constipation. She denies recent dysuria, frequency, urgency or hematuria. She denies recent chest pain or shortness of breath. Allergies: morphine Past surgical history: Cholecystectomy, Appendectomy, , Esophageal band , Splenectomy <Adal Villarreal - Last Filed: 04/30/17 14:57> <Jos Cooney - Last Filed: 04/30/17 16:40> <Lilly Chilel - Last Filed: 04/30/17 19:08> - General Chief Complaint: Sickle Cell Crisis Stated Complaint: SICKLE CELL CRISIS Time Seen by Provider: 04/30/17 14:11 Past History <Adal Villarreal - Last Filed: 04/30/17 14:57> - Past Medical History Anemia: Yes (sickle cell) Cardiac Disorders: Yes (RIGHT ATRIAL CLOT (RESOLVED)) COPD: No DVT: No GI Disorders: Yes (BENIGN LIVER CYST) HTN: Yes (Portal hypertension) Liver Disease: Yes (Cirrhosis) Other medical history: arthritis, benign tumor in liver, blood clot in liver portal vein, atrium - Surgical History Abdominal Surgery: Yes (spleen) Appendectomy: Yes Cholecystectomy: Yes - Suicide/Smoking/Psychosocial Hx Smoking History: Never smoked Have you smoked in the past 12 months: No Information on smoking cessation initiated: No Hx Alcohol Use: No Drug/Substance Use Hx: No Substance Use Type: None <YadielferbebeJos - Last Filed: 04/30/17 16:40> <Lilly Chilel - Last Filed: 04/30/17 19:08> - Past Medical History Allergies/Adverse Reactions: Allergies Allergy/AdvReac Type Severity Reaction Status Date / Time morphine Allergy Verified 04/30/17 13:09 Home Medications: Ambulatory Orders Apixaban [Eliquis] 10 mg DAILY 04/26/16 FENTANYL 25mcg PATCH [DURAGESIC 25mcg PATCH -] 1 each TD Q72H 04/26/16 Folic Acid 2 mg PO DAILY 04/26/16 Hydroxyurea [Hydrea] 500 mg PO BID 04/26/16 Nadolol 40 mg PO DAILY 04/26/16 Ondansetron HCl [Zofran] 4 mg PO ASDIR PRN 04/26/16 Oxycodone HCl 5 mg PO TID PRN 04/26/16 Review of Systems - Review of Systems Constitutional: No: Chills, Fever Respiratory: No: Cough, Shortness of Breath Cardiac (ROS): No: Chest Pain ABD/GI: Yes: Nausea. No: Diarrhea, Vomiting Musculoskeletal: Yes: Joint Pain, Muscle Pain Neurological: Yes: Headache All Other Systems: Reviewed and Negative <Jos Cooney - Last Filed: 04/30/17 16:40> *Physical Exam - Vital Signs Last Vital Signs Temp Pulse Resp BP Pulse Ox 98.1 F 71 18 116/93 98 04/30/17 13:07 04/30/17 13:07 04/30/17 13:07 04/30/17 13:07 04/30/17 13:07 - Physical Exam Comments: 04/30/17 14:58 GENERAL: The patient is awake, alert, and fully oriented. HEAD: Normal with no signs of trauma. EYES: Pupils equal, round and reactive to light, extraocular movements intact, sclera anicteric, conjunctiva clear with no pallor. ENT: Ears normal, nares patent, oropharynx clear without exudates. Moist mucous membranes. NECK: Normal range of motion, supple without lymphadenopathy, JVD, or masses. LUNGS: Breath sounds equal, clear to auscultation bilaterally. No wheeze/ crackles. HEART: Regular rate and rhythm, normal S1 and S2 without murmur or rub. ABDOMEN: Soft/nontender/nondistended. BS wnl. No guarding or rebound. No palpable masses. No hepatosplenomegaly. EXTREMITIES: Normal range of motion, no edema. No clubbing or cyanosis. No cords, erythema, or tenderness. NEUROLOGICAL: Cranial nerves II through XII grossly intact. Normal speech, normal gait. PSYCH: Normal mood, normal affect. SKIN: Warm, Dry, normal turgor, no rashes or lesions noted. <Adal Villarreal - Last Filed: 04/30/17 14:57> - Vital Signs Last Vital Signs Temp Pulse Resp BP Pulse Ox 98.1 F 71 18 116/93 98 04/30/17 13:07 04/30/17 13:07 04/30/17 13:07 04/30/17 13:07 04/30/17 13:07 <Jos Cooney - Last Filed: 04/30/17 16:40> - Vital Signs Last Vital Signs Temp Pulse Resp BP Pulse Ox 98.1 F 76 18 116/93 96 04/30/17 13:07 04/30/17 15:20 04/30/17 13:07 04/30/17 13:07 04/30/17 15:20 <Lilly Chilel - Last Filed: 04/30/17 19:08> ED Treatment Course - LABORATORY CBC & Chemistry Diagram: 04/30/17 15:12 04/30/17 15:12 <Jos Cooney - Last Filed: 04/30/17 16:40> - LABORATORY CBC & Chemistry Diagram: 04/30/17 15:12 04/30/17 15:12 - ADDITIONAL ORDERS Additional order review: Laboratory Results 04/30/17 04/30/17 04/30/17 15:12 15:12 15:12 Sodium Potassium Chloride Carbon Dioxide Anion Gap BUN Creatinine Creat Clearance w eGFR Random Glucose Calcium Total Bilirubin Direct Bilirubin 0.5 H AST ALT Alkaline Phosphatase LD Total Total Protein Albumin Urine Color Ltyellow Urine Appearance Slcloudy Urine pH 6.0 Ur Specific [place] 1.009 Urine Protein Negative Urine Glucose (UA) Negative Urine Ketones Negative Urine Blood Negative Urine Nitrite Negative Urine Bilirubin Negative Urine Urobilinogen 4.0 e.u/dl H Ur Leukocyte Esterase Trace Urine WBC (Auto) 1 Urine RBC (Auto) 1 Ur Epithelial Cells Moderate Urine Bacteria Rare Urine Mucus Rare Urine HCG, Qual Negative Blood Type O POSITIVE Antibody Screen Negative 04/30/17 15:12 Sodium 141 Potassium 4.1 Chloride 105 Carbon Dioxide 25 Anion Gap 11 BUN 7 Creatinine 0.7 Creat Clearance w eGFR > 60 Random Glucose 113 H Calcium 8.9 Total Bilirubin 1.5 H Direct Bilirubin AST 47 H ALT 25 Alkaline Phosphatase 144 H LD Total 564 H Total Protein 8.5 H Albumin 3.6 Urine Color Urine Appearance Urine pH Ur Specific [place] Urine Protein Urine Glucose (UA) Urine Ketones Urine Blood Urine Nitrite Urine Bilirubin Urine Urobilinogen Ur Leukocyte Esterase Urine WBC (Auto) Urine RBC (Auto) Ur Epithelial Cells Urine Bacteria Urine Mucus Urine HCG, Qual Blood Type Antibody Screen 04/30/17 15:12 RBC 3.27 L MCV 89.0 MCHC 34.4 RDW 19.8 H MPV 8.3 Neutrophils % 58.0 Lymphocytes % 26.8 Monocytes % 13.6 H Eosinophils % 1.0 Basophils % 0.6 - Medications Given in the ED: ED Medications Discontinued Medications Generic Name Dose Route Start Last Admin Trade Name Freq PRN Reason Stop Dose Admin Apixaban 5 mg 04/30/17 14:38 04/30/17 16:35 Eliquis - PO 04/30/17 14:39 5 mg ONCE ONE Administration Diphenhydramine HCl 50 mg 04/30/17 15:15 04/30/17 15:27 Benadryl Injection - IVPUSH 04/30/17 15:16 50 mg ONCE ONE Administration Diphenhydramine HCl 25 mg 04/30/17 16:36 04/30/17 17:09 Benadryl Injection - IVPUSH 04/30/17 16:37 25 mg ONCE ONE Administration Diphenhydramine HCl 50 mg 04/30/17 18:16 04/30/17 18:30 Benadryl Injection - IVPUSH 04/30/17 18:17 50 mg ONCE ONE Administration Fentanyl 100 mcg 04/30/17 14:57 04/30/17 15:27 Sublimaze Injection - IVPUSH 04/30/17 14:58 100 mcg ONCE ONE Administration Fentanyl 100 mcg 04/30/17 18:14 04/30/17 18:30 Sublimaze Injection - IVPUSH 04/30/17 18:15 100 mcg ONCE ONE Administration Hydromorphone HCl 2 mg 04/30/17 14:38 04/30/17 15:27 Dilaudid Injection - IVPUSH 04/30/17 14:39 Not Given ONCE ONE Sodium Chloride 1,000 mls @ 1,000 mls/hr 04/30/17 14:38 04/30/17 15:27 Normal Saline - IV 04/30/17 15:37 1,000 mls/hr ONCE ONE Administration Ondansetron HCl 4 mg 04/30/17 14:38 04/30/17 15:27 Zofran Injection IVPUSH 04/30/17 14:39 4 mg ONCE ONE Administration <Lilly Chilelh - Last Filed: 04/30/17 19:08> Medical Decision Making - Medical Decision Making 04/30/17 14:48 A portion of this note was documented by scribe services under my direction. I have reviewed the details of the note, within reason, and agree with the documentation with the following case summary and management plan written by me. 26-year-old female with history of sickle cell disease complicated by cholecystectomy in the past, hypercoagulability with right atrial clots requiring Eliquis, liver cirrhosis with varices presents now with sickle cell crisis for 2 days in the setting of stress and cold weather, which are common triggers for her. Reports compliance with her medications, denies any focal infectious complaints, took her usual pain medications without relief so she presents for evaluation. Vital signs normal, afebrile Seated in stretcher, alert and speaking full sentences No jaundice Reports she hasn't some distress Heart and lungs are clear Abdomen is benign No skin or bony or joint abnormalities. 26-year-old female has been seen in this institution for sickle cell crisis in the past presents with same, likely due to usual stressors of cold weather. No other clear etiology on hx/PE. VSS and well appearing except for musculoskeletal pain. No cardiopulmonary complaints to suggest acute chest syndrome. labs including retic count UA pain control, iv fluids, nausea control reassess 04/30/17 16:40 labs wnl, improved compared to prior visit. Pt feels markedly improved, not requiring any additional pain meds now, asking only for more benadryl. Will continue IV fluids then plan for discharge to her scheduled appt on with her PMD. Patient was signed out to the oncoming ED physician to follow-up the results, reassess the patient, and dispo accordingly. <Jos Cooney - Last Filed: 04/30/17 16:40> *DC/Admit/Observation/Transfer - Attestations Scribe Attestion: 04/30/17 14:58 Documentation prepared by Adal Villarreal, acting as certified medical asst for Jos Cooney MD. <Adal Villarreal - Last Filed: 04/30/17 14:57> <Jos Cooney - Last Filed: 04/30/17 16:40> <Lilly Chilel - Last Filed: 04/30/17 19:08> Diagnosis at time of Disposition: Sickle cell crisis - Discharge Dispostion Disposition: HOME Condition at time of disposition: Stable - Patient Instructions Printed Discharge Instructions: DI for Sickle Cell Anemia, Pain Crisis -- Adult Additional Instructions: Activity as tolerated. Stay hydrated. Continue your medications as previously prescribed by your physician. You should follow up with your primary doctor and business line controller as soon as possible regarding today's emergency department visit. Return to the emergency department for any new or concerning symptoms, particularly persistent or worsening pain, fever/chills, chest pain or shortness of breath.
[2017-04-30] MEDS ORDERED: ONDANSETRON 4 MG/2 ML VIAL ONE (14:54)
[2017-04-30 15:23] LABS: BASO % 0.6 % (0-2.0); HCG,QUALITATIVE URINE NEGATIVE; HEMATOCRIT 29.1 % (32.4-45.2); LYMPH % 26.8 % (8-40); MCH 30.6 pg (25.7-33.7); MCHC 34.4 g/dl (32.0-36.0); MEAN PLT VOLUME 8.3 fl (7.5-11.1); MONO % 13.6 % (3.8-10.2); PLATELET COUNT 247 K/MM3 (134-434); RBC 3.27 M/mm3 (3.60-5.2); RDW 19.8 % (11.6-15.6); RETICULOCYTES 6.28 % (0.5-1.5); WHITE BLOOD COUNT 6.9 K/mm3 (4.0-10.0)
[2017-04-30 15:24] LABS: URINE APPEARANCE SLCLOUDY; URINE BILIRUBIN NEGATIVE (NEGATIVE); URINE BLOOD NEGATIVE (NEGATIVE); URINE COLOR LTYELLOW; URINE GLUCOSE (UA) NEGATIVE (NEGATIVE); URINE KETONE NEGATIVE (NEGATIVE); URINE LEUK ESTERASE TRACE (NEGATIVE); URINE NITRITE NEGATIVE (NEGATIVE); URINE PROTEIN NEGATIVE (NEGATIVE); URINE UROBILINOGEN 4.0 E.U/dl mg/dL (0.2-1.0)
[2017-04-30 15:27] VITALS: PULSE 76
[2017-04-30 15:27] LABS: EPI CELLS MODERATE /HPF (FEW); URINE BACTERIA RARE /hpf (NONE SEEN); URINE MUCUS RARE
[2017-04-30 15:59] LABS: ALBUMIN 3.6 g/dl (3.4-5.0); ALK PHOS 144 U/L (45-117); ANION GAP 11 (8-16); BILIRUBIN,TOTAL 1.5 mg/dL (0.2-1.0); BLOOD UREA NITROGEN 7 mg/dL (7-18); CALCIUM 8.9 mg/dL (8.5-10.1); CHLORIDE 105 mmol/L (98-107); CO2 25 mmol/L (21-32); CREATININE 0.7 mg/dL (0.55-1.02); GLUCOSE,RANDOM 113 mg/dL (74-106); LDH 564 U/L (84-246); POTASSIUM 4.1 mmol/L (3.5-5.1); SGOT/AST 47 U/L (15-37); SGPT/ALT 25 U/L (12-78); SODIUM 141 mmol/L (136-145); TOT PROT 8.5 g/dl (6.4-8.2)
== END 2017-04-30 19:11 | disposition home or self-care (01) ==
LOC: JER 13:03
PROC: 3E033GC Introduction of Other Therapeutic Substance into Peripheral Vein, Percutaneous Approach (ICD-10-PCS; principal; 2017-04-30)
PROC: 3E033NZ Introduction of Analgesics, Hypnotics, Sedatives into Peripheral Vein, Percutaneous Approach (ICD-10-PCS; 2017-04-30)
PROC: 3E033NZ Introduction of Analgesics, Hypnotics, Sedatives into Peripheral Vein, Percutaneous Approach (ICD-10-PCS; 2017-04-30)
DX: D57.00 Hb-SS disease with crisis, unspecified (principal); I10 Essential (primary) hypertension; K74.60 Unspecified cirrhosis of liver; K76.6 Portal hypertension; Z86.718 Personal history of other venous thrombosis and embolism
CPT/HCPCS: 36415; 80053; 81003; 81015; 82248; 83615; 84703; 85025; 85044; 86850; 86900; 86901; 99285-25; J7030

== ENCOUNTER 2017-05-14 20:27 | Emergency (ER) | payer OTHER ==
[2017-05-14 20:57] VITALS: BP 106/65; PULSE 104; TEMP 98.2; BMI 39.0
[2017-05-14] MEDS ORDERED: SODIUM CHLORIDE 0.9% 500 ML INFUS.BAG IV ONE (22:53)
[2017-05-14] MEDS ORDERED: ONDANSETRON 4 MG/2 ML VIAL IVPUSH ONE (23:04)
[2017-05-14] MEDS ORDERED: ONDANSETRON 4 MG/2 ML VIAL ONE (23:15)
[2017-05-15 00:08] LABS: BASO % 0.4 % (0-2.0); EOS % 0.8 % (0-4.5); HEMOGLOBIN 10.2 GM/dL (10.7-15.3); WHITE BLOOD COUNT 7.1 K/mm3 (4.0-10.0)
[2017-05-15 00:16] LABS: HEMATOCRIT 29.3 % (32.4-45.2); LYMPH % 20.6 % (8-40); MCH 30.8 pg (25.7-33.7); MCHC 34.9 g/dl (32.0-36.0); MEAN CELL VOLUME 88.3 fl (80-96); MONO % 15.5 % (3.8-10.2); NEUT % 62.7 % (42.8-82.8); RBC 3.32 M/mm3 (3.60-5.2)
[2017-05-15 00:20] LABS: ADD RBC MORPHOLOGY YES
[2017-05-15 00:23] LABS: ALBUMIN 3.7 g/dl (3.4-5.0); ANION GAP 7 (8-16); BILIRUBIN,TOTAL 1.9 mg/dL (0.2-1.0); BLOOD UREA NITROGEN 7 mg/dL (7-18); CALCIUM 8.6 mg/dL (8.5-10.1); CHLORIDE 105 mmol/L (98-107); CO2 29 mmol/L (21-32); CREATININE 0.7 mg/dL (0.55-1.02); GLUCOSE,RANDOM 109 mg/dL (74-106); SGOT/AST 62 U/L (15-37); SGPT/ALT 32 U/L (12-78); SODIUM 141 mmol/L (136-145); TOT PROT 8.6 g/dl (6.4-8.2)
[2017-05-15 00:24] LABS: ALK PHOS 204 U/L (45-117)
[2017-05-15] MEDS ORDERED: SODIUM CHLORIDE 0.9% 500 ML INFUS.BAG IV ONE (02:39)
[2017-05-15 03:18] LABS: MEAN PLT VOLUME 8.4 fl (7.5-11.1)
[2017-05-15 03:19] LABS: PLATELET COUNT 201 K/MM3 (134-434)
[2017-05-15 03:20] LABS: ANISOCYTOSIS 1+; MACROCYTOSIS 1+; SICKELED CELLS 1+; TARGET CELLS 1+
--- NOTE | 2017-05-15 03:50 | PDOC ---
History of Present Illness - General Chief Complaint: Pain, Acute Stated Complaint: SICKLE CELL ANEMIA Time Seen by Provider: 05/14/17 22:43 - History of Present Illness Initial Comments: 05/15/17 03:49 CHIEF COMPLAINT: HISTORY OF PRESENT ILLNESS: No recent travel or sick contacts. PAST MEDICAL HISTORY: Denies past medical history FAMILY HISTORY: Denies SOCIAL HISTORY: Lives at home with ____. Occupation: . Denies tobacco, alcohol, illicit drug use. SURGICAL HISTORY: Denies ALLERGIES: No known drug allergies REVIEW OF SYSTEMS General/Constitutional: Denies fever or chills. Denies weakness, weight change. HEENT: Denies change in vision. Denies ear pain or discharge. Denies sore throat. Cardiovascular: Denies chest pain or shortness of breath. Respiratory: Denies cough, wheezing, or hemoptysis. Gastrointestinal: Denies nausea, vomiting, diarrhea or constipation. Denies rectal bleeding. Genitourinary: Denies dysuria, frequency, or change in urination. Musculoskeletal: Denies joint or muscle swelling or pain. Denies neck or back pain. Skin and breasts: Denies rash or easy bruising. Neurologic: Denies headache, vertigo, loss of consciousness, or loss of sensation. Psychiatric: Denies depression or anxiety. Endocrine: Denies increased thirst. Denies abnormal weight change. Hematologic/Lymphatic: Denies anemia, easy bleeding, or history of blood clots. Allergic/Immunologic: Denies hives or skin allergy. Denies latex allergy. PHYSICAL EXAM General Appearance: Well-appearing, appropriately dressed. No apparent distress , no intoxication. HEENT: EOMI, PERRLA, normal ENT inspection, normal voice, TMs normal, pharynx normal. No conjunctival pallor. No photophobia, scleral icterus. Neck: Supple. Trachea midline. No tenderness, rigidity, carotid bruit, stridor , lymphadenopathy, or thyromegaly. Respiratory/Chest: Lungs CTAB. No shortness of breath, chest tenderness, respiratory distress, accessory muscle use. No crackles, rales, rhonchi, stridor , wheezing, dullness Cardiovascular: RRR. S1, S2. No JVD, murmur, bradycardia, tachycardia. Vascular Pulses: Dorsalis-Pedis (R): 2+, Dorsalis-Pedis (L): 2+ Gastrointestinal/Abdominal: Normal bowel sounds. Abdomen soft, non-distended. No tenderness or rebound tenderness. No organomegaly, pulsatile mass, guarding , hernia, hepatomegaly, splenomegaly. Lymphatic: No adenopathy, tenderness. Musculoskeletal/Extremities: Normal inspection. FROM of all extremities, normal capillary refill. Pelvis Stable. No CVA tenderness. No tenderness to extremities, pedal edema, swelling, erythema or deformity. Integumentary: Appropriate color, dry, warm. No cyanosis, erythema, jaundice or rash Neurologic: lab aid II-XII intact. Fully oriented, alert. Appropriate mood/affect. Motor strength 5/5. No appreciable EOM palsy, facial droop or sensory deficit. Past History - Past Medical History Allergies/Adverse Reactions: Allergies Allergy/AdvReac Type Severity Reaction Status Date / Time morphine Allergy Verified 04/30/17 13:09 Home Medications: Ambulatory Orders Apixaban [Eliquis] 10 mg DAILY 04/26/16 FENTANYL 25mcg PATCH [DURAGESIC 25mcg PATCH -] 1 each TD Q72H 04/26/16 Folic Acid 2 mg PO DAILY 04/26/16 Hydroxyurea [Hydrea] 500 mg PO BID 04/26/16 Nadolol 40 mg PO DAILY 04/26/16 Oxycodone HCl 5 mg PO TID PRN 04/26/16 FENTANYL 100mcg PATCH [DURAGESIC 100mcg PATCH -] 1 each TD Q72H 05/14/17 Anemia: Yes (sickle cell) Cardiac Disorders: Yes (RIGHT ATRIAL CLOT (RESOLVED)) COPD: No DVT: No GI Disorders: Yes (BENIGN LIVER CYST) HTN: Yes (Portal hypertension) Liver Disease: Yes (Cirrhosis) - Surgical History Abdominal Surgery: Yes (spleen) Appendectomy: Yes Cholecystectomy: Yes - Suicide/Smoking/Psychosocial Hx Smoking History: Never smoked Have you smoked in the past 12 months: No Hx Alcohol Use: No Drug/Substance Use Hx: No Substance Use Type: None *Physical Exam - Vital Signs Last Vital Signs Temp Pulse Resp BP Pulse Ox 98.2 F 104 H 28 H 106/65 98 05/14/17 20:55 05/14/17 20:55 05/14/17 20:55 05/14/17 20:55 05/14/17 20:55 ED Treatment Course - LABORATORY CBC & Chemistry Diagram: 05/14/17 23:30 05/14/17 23:30 - ADDITIONAL ORDERS Additional order review: Laboratory Results 05/14/17 23:30 Sodium 141 Potassium 4.0 Chloride 105 Carbon Dioxide 29 Anion Gap 7 L BUN 7 Creatinine 0.7 Creat Clearance w eGFR > 60 Random Glucose 109 H Calcium 8.6 Total Bilirubin 1.9 H D AST 62 H ALT 32 Alkaline Phosphatase 204 H Total Protein 8.6 H Albumin 3.7 05/14/17 23:30 RBC 3.32 L MCV 88.3 MCHC 34.9 RDW 21.0 H MPV 8.4 Neutrophils % 62.7 Lymphocytes % 20.6 D Monocytes % 15.5 H Eosinophils % 0.8 Basophils % 0.4 - Medications Given in the ED: ED Medications Discontinued Medications Generic Name Dose Route Start Last Admin Trade Name Freq PRN Reason Stop Dose Admin Diphenhydramine HCl 50 mg 05/14/17 23:04 05/14/17 23:39 Benadryl Injection - IVPUSH 05/14/17 23:05 50 mg ONCE ONE Administration Diphenhydramine HCl 25 mg 05/15/17 00:40 05/15/17 01:14 Benadryl Injection - IVPUSH 05/15/17 00:41 25 mg ONCE ONE Administration Diphenhydramine HCl 50 mg 05/15/17 02:39 05/15/17 03:10 Benadryl Injection - IVPUSH 05/15/17 02:40 50 mg ONCE ONE Administration Fentanyl 100 mcg 05/14/17 23:04 05/14/17 23:39 Sublimaze Injection - IVPUSH 05/14/17 23:05 100 mcg ONCE ONE Administration Fentanyl 100 mcg 05/15/17 00:40 05/15/17 01:14 Sublimaze Injection - IVPUSH 05/15/17 00:41 100 mcg ONCE ONE Administration Ondansetron HCl 8 mg 05/14/17 23:04 05/14/17 23:39 Zofran Injection IVPUSH 05/14/17 23:05 8 mg ONCE ONE Administration Sodium Chloride 1,000 ml 05/14/17 22:53 05/14/17 23:39 Normal Saline - IV 05/14/17 22:54 1,000 ml ONCE ONE Administration Sodium Chloride 1,000 ml 05/15/17 02:39 05/15/17 03:32 Normal Saline - IV 05/15/17 02:40 1,000 ml ONCE ONE Administration *DC/Admit/Observation/Transfer Diagnosis at time of Disposition: Sickle cell anemia - Discharge Dispostion Disposition: HOME Condition at time of disposition: Stable Admit: No - Referrals - Patient Instructions Printed Discharge Instructions: DI for Sickle Cell Anemia, Pain Crisis -- Adult Additional Instructions: Drink plenty of fluids to stay hydrated. Continue your medications as previously prescribed by your physician. Follow up with your primary doctor and truck hop as soon as possible regarding today's emergency department visit. Return to the emergency department for any new or concerning symptoms, particularly persistent or worsening pain, fever/chills, chest pain or shortness of breath. - Post Discharge Activity
== END 2017-05-15 04:46 | disposition home or self-care (01) ==
LOC: JER 20:27
PROC: 3E033NZ Introduction of Analgesics, Hypnotics, Sedatives into Peripheral Vein, Percutaneous Approach (ICD-10-PCS; principal; 2017-05-14)
PROC: 3E033NZ Introduction of Analgesics, Hypnotics, Sedatives into Peripheral Vein, Percutaneous Approach (ICD-10-PCS; 2017-05-14)
PROC: 3E033NZ Introduction of Analgesics, Hypnotics, Sedatives into Peripheral Vein, Percutaneous Approach (ICD-10-PCS; 2017-05-14)
PROC: 3E033GC Introduction of Other Therapeutic Substance into Peripheral Vein, Percutaneous Approach (ICD-10-PCS; 2017-05-14)
PROC: 3E033GC Introduction of Other Therapeutic Substance into Peripheral Vein, Percutaneous Approach (ICD-10-PCS; 2017-05-14)
PROC: 3E033GC Introduction of Other Therapeutic Substance into Peripheral Vein, Percutaneous Approach (ICD-10-PCS; 2017-05-14)
DX: D57.80 Other sickle-cell disorders without crisis (principal); K76.6 Portal hypertension; K74.69 Other cirrhosis of liver
CPT/HCPCS: 36415; 80053; 85025; 85044; 96374; 96375; 99283-25

== ENCOUNTER 2017-06-13 13:34 | Emergency (ER) | payer OTHER ==
[2017-06-13 13:42] VITALS: TEMP 98; BMI 38.9
[2017-06-13] MEDS ORDERED: SODIUM CHLORIDE 0.9% 1000 ML INFUS.BAG IV ONE (14:38)
--- NOTE | 2017-06-13 14:51 | PDOC ---
History of Present Illness - General History Source: Patient Exam Limitations: No Limitations - History of Present Illness Initial Comments: 06/13/17 14:48 27 yo F wtih /o sick cell anemia comlicated by prior acute chest, clots, portal vein thromobis and esophageal varices, here with c/o back and leg pain no cp or sob. no f/c pt has been trying to hydrate, but stressed due to wedding planning and heat of 90 deg today. takes oxycodone at home and fentanyl 125 mc. but pharmacy ran out of patches. no other mod factors. pt states she itches when getting morphine. <Sharona Figueroa - Last Filed: 06/13/17 17:47> - History of Present Illness Initial Comments: 06/13/17 17:07 Construction Helper: Dr. Lee Horn ([phone]). <Karis Valle - Last Filed: 06/13/17 18:17> - General Chief Complaint: Sickle Cell Crisis Stated Complaint: SICKLE CELL CRISIS Time Seen by Provider: 06/13/17 14:38 Past History - Past Medical History Anemia: Yes (sickle cell) Cardiac Disorders: Yes (RIGHT ATRIAL CLOT (RESOLVED)) COPD: No DVT: No GI Disorders: Yes (BENIGN LIVER CYST) HTN: Yes (Portal hypertension) Liver Disease: Yes (Cirrhosis) - Surgical History Abdominal Surgery: Yes (spleen) Appendectomy: Yes Cholecystectomy: Yes - Suicide/Smoking/Psychosocial Hx Smoking History: Never smoked Have you smoked in the past 12 months: No Information on smoking cessation initiated: No Hx Alcohol Use: No Drug/Substance Use Hx: No Substance Use Type: None <Sharona Figueroa - Last Filed: 06/13/17 17:47> <Karis Valle - Last Filed: 06/13/17 18:17> - Past Medical History Allergies/Adverse Reactions: Allergies Allergy/AdvReac Type Severity Reaction Status Date / Time morphine Allergy Verified 06/13/17 13:39 Home Medications: Ambulatory Orders Apixaban [Eliquis] 10 mg DAILY 04/26/16 FENTANYL 25mcg PATCH [DURAGESIC 25mcg PATCH -] 1 each TD Q72H 04/26/16 Folic Acid 1 mg PO DAILY 04/26/16 Hydroxyurea [Hydrea] 500 mg PO BID 04/26/16 Nadolol 40 mg PO DAILY 04/26/16 Oxycodone HCl 5 mg PO TID PRN 04/26/16 FENTANYL 100mcg PATCH [DURAGESIC 100mcg PATCH -] 1 each TD Q72H 05/14/17 Review of Systems - Review of Systems Constitutional: No: Chills, Diaphoresis HEENTM: No: Blurred Vision Respiratory: No: Orthopnea, Shortness of Breath Cardiac (ROS): No: Chest Pain, Edema : No: Burning Musculoskeletal: Yes: Back Pain. No: Joint Pain Hematologic/Lymphatic: Yes: Anemia All Other Systems: Reviewed and Negative <Sharona Figueroa - Last Filed: 06/13/17 17:47> *Physical Exam - Vital Signs Last Vital Signs Temp Pulse Resp BP Pulse Ox 98.0 F 71 18 117/74 100 06/13/17 13:39 06/13/17 13:39 06/13/17 13:39 06/13/17 13:39 06/13/17 13:39 - Physical Exam General Appearance: Yes: Appropriately Dressed HEENT: positive: Normal ENT Inspection Respiratory/Chest: positive: Lungs Clear, Normal Breath Sounds. negative: Respiratory Distress Cardiovascular: positive: Regular Rhythm, Regular Rate, S1, S2 Female Pelvic Exam: positive: normal external exam Gastrointestinal/Abdominal: positive: Normal Bowel Sounds, Flat, Soft. negative : Tender Musculoskeletal: positive: Normal Inspection. negative: Decreased Range of Motion Extremity: positive: Normal Inspection, Normal Range of Motion Integumentary: positive: Normal Color, Dry, Warm Neurologic: positive: Fully Oriented, Alert <Sharona Figueroa - Last Filed: 06/13/17 17:47> - Vital Signs Last Vital Signs Temp Pulse Resp BP Pulse Ox 98.0 F 71 18 117/74 100 06/13/17 13:39 06/13/17 13:39 06/13/17 13:39 06/13/17 13:39 06/13/17 13:39 <Karis Valle - Last Filed: 06/13/17 18:17> ED Treatment Course - LABORATORY CBC & Chemistry Diagram: 06/13/17 15:00 06/13/17 15:00 <Sharona Figueroa - Last Filed: 06/13/17 17:47> - LABORATORY CBC & Chemistry Diagram: 06/13/17 15:00 05/03/18 15:00 - ADDITIONAL ORDERS Additional order review: Laboratory Results 06/13/17 15:00 Sodium 142 Potassium 4.2 Chloride 107 Carbon Dioxide 26 Anion Gap 9 BUN 7 Creatinine 0.6 Creat Clearance w eGFR > 60 Random Glucose 80 Calcium 8.8 Total Bilirubin 1.4 H D AST 42 H ALT 22 Alkaline Phosphatase 152 H Total Protein 8.3 H Albumin 3.4 06/13/17 15:00 RBC 3.07 L MCV 90.3 MCHC 34.4 RDW 18.7 H D MPV 8.3 Neutrophils % 56.9 Lymphocytes % 26.7 D Monocytes % 14.3 H Eosinophils % 1.5 D Basophils % 0.6 - Medications Given in the ED: ED Medications Discontinued Medications Generic Name Dose Route Start Last Admin Trade Name Freq PRN Reason Stop Dose Admin Diphenhydramine HCl 50 mg 06/13/17 14:52 06/13/17 15:18 Benadryl Injection - IVPUSH 06/13/17 14:53 50 mg ONCE ONE Administration Morphine Sulfate 6 mg 06/13/17 14:52 06/13/17 15:18 Morphine Injection - IVPUSH 06/13/17 14:53 6 mg ONCE ONE Administration Morphine Sulfate 6 mg 06/13/17 15:59 06/13/17 16:14 Morphine Injection - IVPUSH 06/13/17 16:00 6 mg ONCE ONE Administration Sodium Chloride 1,000 ml 06/13/17 14:38 06/13/17 15:18 Normal Saline - IV 06/13/17 14:39 1,000 ml ONCE ONE Administration <Karis Valle - Last Filed: 06/13/17 18:17> Medical Decision Making - Medical Decision Making 06/13/17 14:51 27 yo with acute pain crisis. brian iv hydration cxr r/o infiltrate, ucg, labs iv hydration. d/w/ pt regarding reaction to morphine. out of dilaudid will take morphine with benadryl . takes oxycodone andfentanyl as outpt. 06/13/17 17:47 pt feeling better. will dc home. requesting to be discharged. <Sharona Figueroa - Last Filed: 06/13/17 17:47> - Medical Decision Making 06/13/17 18:05 First call placed to Dr. Horn at 18:08. Awaiting call back from Dr. Lana Maravilla. Case discussed with Dr. Maravilla at 18:17. <Karis Valle - Last Filed: 06/13/17 18:17> *DC/Admit/Observation/Transfer <Sharona Figueroa - Last Filed: 06/13/17 17:47> - Attestations Scribe Attestion: 06/13/17 17:08 Documentation prepared by Karis Valle, acting as medical technologist blood bank for Sharona Figueroa MD. <Karis Valle - Last Filed: 06/13/17 18:17> Diagnosis at time of Disposition: Sickle cell pain crisis - Discharge Dispostion Disposition: HOME Condition at time of disposition: Improved - Referrals Referrals: Lee Horn [Non Staff, Medical] - - Patient Instructions Printed Discharge Instructions: DI for Sickle Cell Anemia, Pain Crisis -- Adult Additional Instructions: follow up with your loans officer. drink plenty of fluids. return for any problems or concerns.
[2017-06-13] MEDS ORDERED: morphine CARPU-JECT 4 MG/1 ML DISP.SYRIN IVPUSH ONE ×2 (14:52→15:59)
[2017-06-13] MEDS ORDERED: MORPHINE SULFATE 10 MG/1 ML *VIAL ONE ×3 (15:09→17:31)
[2017-06-13 15:14] LABS: BASO % 0.6 % (0-2.0); EOS % 1.5 % (0-4.5); HEMATOCRIT 27.7 % (32.4-45.2); HEMOGLOBIN 9.5 GM/dL (10.7-15.3); LYMPH % 26.7 % (8-40); MCH 31.1 pg (25.7-33.7); MCHC 34.4 g/dl (32.0-36.0); MEAN CELL VOLUME 90.3 fl (80-96); MEAN PLT VOLUME 8.3 fl (7.5-11.1); MONO % 14.3 % (3.8-10.2); NEUT % 56.9 % (42.8-82.8); PLATELET COUNT 234 K/MM3 (134-434); RBC 3.07 M/mm3 (3.60-5.2); RDW 18.7 % (11.6-15.6); WHITE BLOOD COUNT 9.4 K/mm3 (4.0-10.0)
[2017-06-13 15:45] LABS: RETICULOCYTES 6.08 % (0.5-1.5)
[2017-06-13 15:46] LABS: ALBUMIN 3.4 g/dl (3.4-5.0); ALK PHOS 152 U/L (45-117); ANION GAP 9 (8-16); BILIRUBIN,TOTAL 1.4 mg/dL (0.2-1.0); BLOOD UREA NITROGEN 7 mg/dL (7-18); CALCIUM 8.8 mg/dL (8.5-10.1); CHLORIDE 107 mmol/L (98-107); CO2 26 mmol/L (21-32); CREATININE 0.6 mg/dL (0.55-1.02); GLUCOSE,RANDOM 80 mg/dL (74-106); POTASSIUM 4.2 mmol/L (3.5-5.1); SGOT/AST 42 U/L (15-37); SGPT/ALT 22 U/L (12-78); SODIUM 142 mmol/L (136-145); TOT PROT 8.3 g/dl (6.4-8.2)
[2017-06-13] MEDS ORDERED: morphine SULFATE 4 MG/ML VIAL ONE (17:07)
[2017-06-13] MEDS ORDERED: morphine CARPU-JECT 10 MG/1 ML DISP.SYRIN IVPUSH ONE (17:11)
[2017-06-13 18:12] VITALS: BP 104/70; PULSE 75
== END 2017-06-13 18:12 | disposition home or self-care (01) ==
LOC: JER 13:34
PROC: 3E033GC Introduction of Other Therapeutic Substance into Peripheral Vein, Percutaneous Approach (ICD-10-PCS; principal; 2017-06-13)
PROC: 3E033NZ Introduction of Analgesics, Hypnotics, Sedatives into Peripheral Vein, Percutaneous Approach (ICD-10-PCS; 2017-06-13)
PROC: 3E0337Z Introduction of Electrolytic and Water Balance Substance into Peripheral Vein, Percutaneous Approach (ICD-10-PCS; 2017-06-13)
DX: D57.00 Hb-SS disease with crisis, unspecified (principal); K76.6 Portal hypertension; K74.60 Unspecified cirrhosis of liver
CPT/HCPCS: 36415; 80053; 85025; 85044; 99283-25; J7030

== ENCOUNTER 2017-08-03 15:17 | Emergency (ER) | payer OTHER ==
[2017-08-03 15:24] VITALS: BMI 40.7
[2017-08-03] MEDS ORDERED: morphine CARPU-JECT 8 MG/1 ML DISP.SYRIN IVPUSH ONE (16:13)
[2017-08-03] MEDS ORDERED: SODIUM CHLORIDE 1,000 ML IV STA (16:14)
[2017-08-03] MEDS ORDERED: morphine SULFATE 4 MG/ML VIAL ONE (16:22)
--- NOTE | 2017-08-03 16:32 | PDOC ---
History of Present Illness <Curtis Mojica - Last Filed: 08/03/17 17:34> - History of Present Illness Initial Comments: 08/03/17 16:53 "The patient is a 27 year old female with a significant PMH of sickle cell anemia, portal vein thrombosis, portal HTN, cirrhosis, and esophageal varices who presents to the emergency department with bilateral leg pain and back pain beginning approximately yesterday. She reports taking her prescribed Oxycodone and using heat pads to minimal relief. The patient states this episodes feels the same as her prior sickle cell crises. Denies any new pain. Denies any trauma. Is ambulatory without an issues. The patient denies chest pain, shortness of breath, headache and dizziness. Denies fever, chills, nausea, vomit, diarrhea and constipation. Denies dysuria, frequency, urgency and hematuria. Allergies: Morphine Past surgical history: Splenectomy. Appendectomy. Cholecystectomy. Social history: No reported cigarette, alcohol, or drug use. Commutator Presser: Dr. Lee Horn " <Rhett Bowers - Last Filed: 08/03/17 18:44> - General Chief Complaint: Sickle Cell Crisis Stated Complaint: Sickle Cell Crisis Time Seen by Provider: 08/03/17 15:53 Past History <Curtis Mojica - Last Filed: 08/03/17 17:34> - Past Medical History Anemia: Yes (sickle cell) Cardiac Disorders: Yes (RIGHT ATRIAL CLOT (RESOLVED)) COPD: No DVT: No GI Disorders: Yes (BENIGN LIVER CYST) HTN: Yes (Portal hypertension) Liver Disease: Yes (Cirrhosis) - Surgical History Abdominal Surgery: Yes (spleen) Appendectomy: Yes Cholecystectomy: Yes - Suicide/Smoking/Psychosocial Hx Smoking History: Never smoked Have you smoked in the past 12 months: No Hx Alcohol Use: No Drug/Substance Use Hx: No Substance Use Type: None <Rhett Bowers - Last Filed: 08/03/17 18:44> - Past Medical History Allergies/Adverse Reactions: Allergies Allergy/AdvReac Type Severity Reaction Status Date / Time morphine Allergy Verified 06/13/17 13:39 Home Medications: Ambulatory Orders Apixaban [Eliquis] 10 mg DAILY 04/26/16 Folic Acid 1 mg PO DAILY 04/26/16 Hydroxyurea [Hydrea] 500 mg PO BID 04/26/16 Nadolol 40 mg PO DAILY 04/26/16 Oxycodone HCl 5 mg PO TID PRN 04/26/16 Review of Systems - Review of Systems Comments:: 08/03/17 16:54 "GENERAL/CONSTITUTIONAL: No fever or chills. No weakness. HEAD, EYES, EARS, NOSE AND THROAT: No change in vision. No ear pain or discharge. No sore throat. CARDIOVASCULAR: No chest pain or shortness of breath. RESPIRATORY: No cough, wheezing, or hemoptysis. GASTROINTESTINAL: No nausea, vomiting, diarrhea or constipation. GENITOURINARY: No dysuria, frequency, or change in urination. MUSCULOSKELETAL: (+) B/l leg pain. (+) Back pain. No neck pain. No muscle or joint swelling. SKIN: No rash NEUROLOGIC: No headache, vertigo, loss of consciousness, or change in strength/ sensation. ENDOCRINE: No increased thirst. No abnormal weight change. HEMATOLOGIC/LYMPHATIC: No anemia, easy bleeding, or history of blood clots. ALLERGIC/IMMUNOLOGIC: No hives or skin allergy. " <Rhett Bowers - Last Filed: 08/03/17 18:44> *Physical Exam - Vital Signs Last Vital Signs Temp Pulse Resp BP Pulse Ox 98.1 F 88 17 115/68 99 08/03/17 15:20 08/03/17 15:20 08/03/17 15:20 08/03/17 15:20 08/03/17 15:20 <Curtis Mojica - Last Filed: 08/03/17 17:34> - Vital Signs Last Vital Signs Temp Pulse Resp BP Pulse Ox 98.1 F 88 17 115/68 99 08/03/17 15:20 08/03/17 15:20 08/03/17 15:20 08/03/17 15:20 08/03/17 15:20 - Physical Exam Comments: 08/03/17 16:28 "GENERAL: Awake, alert, and fully oriented, in no acute distress. HEAD: No signs of trauma EYES: PERRLA, EOMI, sclera anicteric, conjunctiva clear ENT: Auricles normal inspection, hearing grossly normal, nares patent, oropharynx clear without exudates. Moist mucosa NECK: Nontender, no stepoffs, Normal ROM, supple, no lymphadenopathy, JVD, or masses LUNGS: Breath sounds equal, clear to auscultation bilaterally. No wheezes, and no crackles HEART: Regular rate and rhythm, normal S1 and S2, no murmurs, rubs or gallops ABDOMEN: Soft, nontender, normoactive bowel sounds. No guarding, no rebound. No masses EXTREMITIES: Normal range of motion, no edema. No clubbing or cyanosis. No cords, erythema, or tenderness NEUROLOGICAL: Cranial nerves II through XII intact. 5/5 strength and sensation in all extremities, Normal speech, normal gait, normal cerebellar function SKIN: Warm, Dry, normal turgor, no rashes or lesions noted. " <Rhett Bowers - Last Filed: 08/03/17 18:44> ED Treatment Course - LABORATORY CBC & Chemistry Diagram: 08/03/17 16:39 08/03/17 16:39 - ADDITIONAL ORDERS Additional order review: Laboratory Results 08/03/17 08/03/17 16:39 16:39 Sodium 140 Potassium 4.1 Chloride 106 Carbon Dioxide 28 Anion Gap 6 L BUN 6 L Creatinine 0.8 Creat Clearance w eGFR > 60 Random Glucose 137 H Calcium 8.8 Total Bilirubin 1.1 H AST 55 H ALT 48 Alkaline Phosphatase 228 H LD Total 480 H Total Protein 9.1 H Albumin 3.4 08/03/17 16:39 RBC 3.36 L MCV 91.7 MCHC 32.9 RDW 19.1 H MPV 7.9 Neutrophils % 63.5 Lymphocytes % 21.2 D Monocytes % 13.2 H Eosinophils % 1.1 Basophils % 1.0 - Medications Given in the ED: ED Medications Discontinued Medications Generic Name Dose Route Start Last Admin Trade Name Elvis PRN Reason Stop Dose Admin Diphenhydramine HCl 50 mg 08/03/17 16:14 08/03/17 16:41 Benadryl Injection - IVPUSH 08/03/17 16:15 50 mg ONCE ONE Administration Sodium Chloride 1,000 mls @ 1,000 mls/hr 08/03/17 16:14 08/03/17 16:42 Normal Saline - IV 08/03/17 17:13 1,000 mls/hr ASDIR STA Administration Morphine Sulfate 8 mg 08/03/17 16:13 08/03/17 16:41 Morphine Sulfate IVPUSH 08/03/17 16:14 8 mg ONCE ONE Administration <Curtis Mojica - Last Filed: 08/03/17 17:34> - LABORATORY CBC & Chemistry Diagram: 08/03/17 16:39 08/03/17 16:39 <Rhett Bowers - Last Filed: 08/03/17 18:44> Medical Decision Making - Medical Decision Making 08/03/17 16:28 27 F with lower back and BLE pain, consistent with previous sickle cell crises. Pt with no CP/SOB, stable vitals, no evidence of acute chest. - Labs - IVF, pain control 08/03/17 17:31 Labs consistent with SCC. Pt received morphine 8mg and benadryl 50mg Reports persistent pain Will order additional medication. 08/03/17 18:43 Pt now feeling much better and requesting discharge. Pt is well appearing, with normal vitals. Clinically stable for DC at this time. I discussed the physical exam findings, ancillary test results and final diagnoses with the patient. I answered all of the patient's questions. The patient was satisfied with the care received and felt comfortable with the discharge plan and treatment plan. The patient agrees to follow up with the primary care physician within 24-72 hours. <Rhett Bowers - Last Filed: 08/03/17 18:44> *DC/Admit/Observation/Transfer - Attestations Scribe Attestion: 08/03/17 17:34 Documentation prepared by Curtis Mojica, acting as medical assistant dermatology for Rhett Bowers MD. <Curtis Mojica - Last Filed: 08/03/17 17:34> - Attestations Physician Attestion: 08/03/17 18:44 I, Dr. Rhett Bowers MD, attest that this document has been prepared under my direction and personally reviewed by me in its entirety. I further attest, that it accurately reflects all work, treatment, procedures and medical decision -making performed by me. <Rhett Bowers - Last Filed: 08/03/17 18:44> Diagnosis at time of Disposition: Sickle cell pain crisis - Discharge Dispostion Disposition: HOME - Patient Instructions Printed Discharge Instructions: DI for Sickle Cell Anemia, Pain Crisis -- Adult Additional Instructions: Take your medications as prescribed. Follow up with your dog licenser within 1 week. If you experience worsening pain, chest pain, shortness of breath, fevers, or any other concerning symptoms, return to the ER immediately.
[2017-08-03 16:47] LABS: EOS % 1.1 % (0-4.5); HEMATOCRIT 30.8 % (32.4-45.2); HEMOGLOBIN 10.1 GM/dL (10.7-15.3); LYMPH % 21.2 % (8-40); MCH 30.2 pg (25.7-33.7); MCHC 32.9 g/dl (32.0-36.0); MEAN CELL VOLUME 91.7 fl (80-96); MEAN PLT VOLUME 7.9 fl (7.5-11.1); MONO % 13.2 % (3.8-10.2); NEUT % 63.5 % (42.8-82.8); PLATELET COUNT 280 K/MM3 (134-434); RBC 3.36 M/mm3 (3.60-5.2); RDW 19.1 % (11.6-15.6); WHITE BLOOD COUNT 6.7 K/mm3 (4.0-10.0)
[2017-08-03 17:10] LABS: ALBUMIN 3.4 g/dl (3.4-5.0); ANION GAP 6 (8-16); BILIRUBIN,TOTAL 1.1 mg/dL (0.2-1.0); BLOOD UREA NITROGEN 6 mg/dL (7-18); CALCIUM 8.8 mg/dL (8.5-10.1); CHLORIDE 106 mmol/L (98-107); CO2 28 mmol/L (21-32); CREATININE 0.8 mg/dL (0.55-1.02); GLUCOSE,RANDOM 137 mg/dL (74-106); POTASSIUM 4.1 mmol/L (3.5-5.1); SGOT/AST 55 U/L (15-37); SGPT/ALT 48 U/L (12-78); SODIUM 140 mmol/L (136-145); TOT PROT 9.1 g/dl (6.4-8.2)
[2017-08-03 17:11] LABS: ALK PHOS 228 U/L (45-117)
[2017-08-03] MEDS ORDERED: morphine CARPU-JECT 4 MG/1 ML DISP.SYRIN IVPUSH ONE ×2 (17:21→18:42)
[2017-08-03] MEDS ORDERED: MORPHINE SULFATE 10 MG/1 ML *VIAL ONE ×3 (18:05→19:28)
[2017-08-03] MEDS ORDERED: morphine CARPU-JECT 10 MG/1 ML DISP.SYRIN IVPUSH ONE (19:20)
[2017-08-03 19:44] VITALS: BP 112/73; PULSE 89; TEMP 98.3
== END 2017-08-03 19:46 | disposition home or self-care (01) ==
LOC: JER 15:17
PROC: 3E0337Z Introduction of Electrolytic and Water Balance Substance into Peripheral Vein, Percutaneous Approach (ICD-10-PCS; principal; 2017-08-03)
PROC: 3E033NZ Introduction of Analgesics, Hypnotics, Sedatives into Peripheral Vein, Percutaneous Approach (ICD-10-PCS; 2017-08-03)
PROC: 3E033GC Introduction of Other Therapeutic Substance into Peripheral Vein, Percutaneous Approach (ICD-10-PCS; 2017-08-03)
DX: D57.00 Hb-SS disease with crisis, unspecified (principal); K76.6 Portal hypertension; K74.60 Unspecified cirrhosis of liver; I81 Portal vein thrombosis; Z79.01 Long term (current) use of anticoagulants
CPT/HCPCS: 36415; 80053; 83615; 85025; 85044; 96361; 96374; 96375; 96376; 99283-25; J7030

== ENCOUNTER 2017-12-30 11:06 | Emergency (ER) | payer OTHER ==
[2017-12-30 11:13] VITALS: BP 102/57; PULSE 84; TEMP 98.5; BMI 38.9
--- NOTE | 2017-12-30 11:35 | PDOC ---
History of Present Illness - General Chief Complaint: Sickle Cell Crisis Stated Complaint: SICKLE CELL CRISIS Time Seen by Provider: 12/30/17 11:19 History Source: Patient Exam Limitations: No Limitations - History of Present Illness Initial Comments: 12/30/17 11:40 27 YOF with SS sickle cell anemia c/b acute chest syndrome and frequent pain crises which are in the right knee (takes oxycodone and hydroxyuria), also had bleeding esophageal varices requiring banding, portal vein thrombosis on Eliquis , cholecystectomy, appendectomy, surgical splenectomy. She p/w 3 days worsening right knee pain typical of her normal pain crises, no atypical associated symptoms. She always gets mild SOB with this. Denies f/c, vomiting, diarrhea, constipation, chest pain, new back pain, hip pain, fainting, etc. States this was precipitated by getting stuck in the snow on and needing to walk home outside. Past History - Past Medical History Allergies/Adverse Reactions: Allergies Allergy/AdvReac Type Severity Reaction Status Date / Time morphine Allergy Verified 12/30/17 11:11 Home Medications: Ambulatory Orders Apixaban [Eliquis] 10 mg DAILY 04/26/16 Folic Acid 1 mg PO DAILY 04/26/16 Hydroxyurea [Hydrea] 500 mg PO BID 04/26/16 Nadolol 40 mg PO DAILY 04/26/16 Oxycodone HCl 5 mg PO TID PRN 04/26/16 Anemia: Yes (sickle cell) Cardiac Disorders: Yes (RIGHT ATRIAL CLOT (RESOLVED)) COPD: No DVT: No GI Disorders: Yes (BENIGN LIVER CYST) HTN: Yes (Portal hypertension) Liver Disease: Yes (Cirrhosis) - Surgical History Abdominal Surgery: Yes (spleen) Appendectomy: Yes Cholecystectomy: Yes - Suicide/Smoking/Psychosocial Hx Smoking History: Never smoked Have you smoked in the past 12 months: No 'Breaking Loose' booklet given: 08/20/17 Hx Alcohol Use: No Drug/Substance Use Hx: No Substance Use Type: None Review of Systems - Review of Systems Able to Perform ROS?: Yes Comments:: GEN: no fever, chills, generalized weakness, malaise, unintentional weight change, or loss of appetite HEENT: no ear pain, congestion, sore throat, rhinorrhea, nosebleed, vision change, or eye pain CV: no chest pain, palpitations, syncope, or edema RESP: SOB, no cough, or wheezing GI: no abdominal pain, nausea, vomiting, diarrhea, constipation, or black/bloody /white stool : no dysuria, hematuria, frequency, incontinence, retention, pruritis, bleeding, or discharge MSK: right knee pain, otherwise no weakness, joint swelling, joint pain, or muscle pain NEURO: no headache, seizure, numbness, tingling, focal weakness, or head trauma PSYCH: no suicidality, homicidality, or substance abuse SKIN: no jaundice, rash, cuts, or bruises *Physical Exam - Vital Signs Last Vital Signs Temp Pulse Resp BP Pulse Ox 98.5 F 84 18 102/57 L 99 12/30/17 11:11 12/30/17 11:11 12/30/17 11:11 12/30/17 11:11 12/30/17 11:11 12/30/17 12:16 GENERAL: a bit uncomfortable but nontoxic appearing, no pale, A/Ox4, no acute distress, speaking in full sentences, answers appropriately, obese HEENT: PERRLA, EOMI, moist mucous membranes, no cervical lymphadenopathy NECK: no midline ttp, no spinal stepoff or deformity, full ROM, supple CHEST WALL: Access port in place right upper hest wall CARDIOVASCULAR: regular rate and rhythm, normal S1S2, no MGR, radial and DP pulses 2+ symmetric, cap refill <2 seconds, extremities wwp RESPIRATORY: no respiratory distress, normal and symmetric chest movements during respirations, lungs CTA bilaterally, equal breath sounds, no cyanosis, no nail clubbing GI/ABDOMEN: symmetric appearance, normoactive bowel sounds, soft, no tenderness to palpation, no midline pulsatile masses, no palpated organomegaly : no CVA tenderness BACK: no midline ttp or stepoff or deformity of T/L spine EXTREMITIES: no deformity, no atrophy, extremities wwp, no LE pitting edema, mild diffuse right knee ttp anteriorly SKIN: warm and dry, no pallor, no jaundice, no bruising, no rash, no skin breakdown, no cuts, no lesions NEUROLOGICAL: GCS 15, CN II-XII grossly intact, moving all extremities, 5/5 strength proximally and distally, no facial droop, no decreased sensation ED Treatment Course - LABORATORY CBC & Chemistry Diagram: 12/30/17 12:41 12/30/17 12:41 Medical Decision Making - Medical Decision Making Adult female Pt with SS sickle cell disease p/w left knee pain typical of her normal SS crises, ongoing x4 days. Takes oxycodone at home, p/w note from her transitions manager rn noting the normal tx she gets in ED for sickle crises. States she is NOT UTD on immunizations, does not know there are extras she should get for asplenia. Initial Vital Signs Temp Pulse Resp BP Pulse Ox 98.5 F 84 18 102/57 L 99 12/30/17 11:11 12/30/17 11:11 12/30/17 11:11 12/30/17 11:11 12/30/17 11:11 Exam: As noted in Physical Exam section. DDX IBNLT: most likely pain crisis, less likely acute chest syndrome, splenic sequestration crisis, aplastic crisis, stroke, sepsis (encapsulated organisms, sources meningitis/osteomyelitis/PNA/leg ulcers/UTI, post-splenectomy sepsis syndrome, etc), bilirubin cholelithiasis (from increased hemolysis), osteonecrosis W/U ordered: Labs as noted below, CXR EKG TX ordered: IVF, O2 We are out of dilaudid IV in the hospital. Patient states she does not want RN to access her port if there is no chance of her getting the meds she needs. Ordered are morphine IV PUSH, benadryl 50 mg IVPB. Patient requested benadryl be pushed and we are unable to do this for her; IVPB given instead. EKG: Refused by patient CXR: Refused by patient 12/30/17 12:09 I placed a call to patient's transitions manager rn at [phone] awaiting call back. 12/30/17 12:[address] Garcia who is patient's transitions manager rn, he denies red flags on her recent hx. Confirms that she usually gets 6 mg Dilaudid if in typical pain crisis, doesn't usually need admission. States she has been on Fentanyl [employer]IR[employer] in the past too. States she does f/u regularly with him in office. Laboratory Tests 12/30/17 12/30/17 12/30/17 12:41 12:41 12:41 WBC 9.9 RBC 3.09 L Hgb 8.8 L Hct 26.6 L MCV 86.0 MCH 28.5 MCHC 33.1 RDW 21.8 H Plt Count 246 MPV 8.1 Absolute Neuts (auto) 5.1 Total Counted 100 Neutrophils % No Result Required. Neutrophils % (Manual) 58.0 Lymphocytes % No Result Required. Lymphocytes % (Manual) 35.0 D Monocytes % (Manual) 7 Nucleated RBC % 1 H Poikilocytosis 2+ Anisocytosis 1+ Microcytosis 1+ Macrocytosis 1+ Sickle Cells 2+ Target Cells 2+ Ovalocytes 1+ Retic Count 9.41 H D PT with INR INR Sodium 137 Potassium 4.5 Chloride 104 Carbon Dioxide 27 Anion Gap 6 L BUN 12 Creatinine 1.0 Creat Clearance w eGFR > 60 Random Glucose 92 Calcium 8.7 Total Bilirubin 1.7 H AST 58 H ALT 30 Alkaline Phosphatase 177 H Creatine Kinase 72 Troponin I < 0.02 Total Protein 8.8 H Albumin 3.6 Urine Color Urine Appearance Urine pH Ur Specific Shushan Urine Protein Urine Glucose (UA) Urine Ketones Urine Blood Urine Nitrite Urine Bilirubin Urine Urobilinogen Ur Leukocyte Esterase Urine WBC (Auto) Urine RBC (Auto) Ur Epithelial Cells Urine HCG, Qual 12/30/17 12/30/17 12/30/17 12:41 15:15 15:15 WBC RBC Hgb Hct MCV MCH MCHC RDW Plt Count MPV Absolute Neuts (auto) Total Counted Neutrophils % Neutrophils % (Manual) Lymphocytes % Lymphocytes % (Manual) Monocytes % (Manual) Nucleated RBC % Poikilocytosis Anisocytosis Microcytosis Macrocytosis Sickle Cells Target Cells Ovalocytes Retic Count PT with INR 12.40 INR 1.05 Sodium Potassium Chloride Carbon Dioxide Anion Gap BUN Creatinine Creat Clearance w eGFR Random Glucose Calcium Total Bilirubin AST ALT Alkaline Phosphatase Creatine Kinase Troponin I Total Protein Albumin Urine Color Yellow Urine Appearance Slcloudy Urine pH 6.0 Ur Specific Shushan 1.011 Urine Protein Negative Urine Glucose (UA) Negative Urine Ketones Negative Urine Blood 1+ H Urine Nitrite Negative Urine Bilirubin Negative Urine Urobilinogen 4.0 e.u/dl H Ur Leukocyte Esterase Trace Urine WBC (Auto) 4 Urine RBC (Auto) <1 Ur Epithelial Cells Moderate Urine HCG, Qual Negative 12/30/17 13:21 Patient requesting another dose of pain medication and benadryl IVPUSH. We explain we can give Fentanyl 100 mcg at this time; this is ordered and given. We explain that about one hour has passed since last Benadryl and need to wait for further dosing. We also explain that benadryl will not be given IV PUSH; IVPB only. 12/30/17 14:05 Patient requesting additional Benadryl IVPUSH. We explain we can give one more 50 mg IVPB dose at this time. This is ordered and given. 12/30/17 14:34 Patient requesting additional pain medication. We explain that we can give Morphine 6 mg; this is ordered and given. 12/30/17 15:55 Patient states upset, feeling a bit better, states wants to go home. She denies chest pain, SOB, back pain, hip pain, headache, lightheeadedness, etc. Return precautions are discussed and she will f/u with her transitions manager rn tomorrow. She is encouraged to ask her transitions manager rn about the immunizations she should get for asplenia. *DC/Admit/Observation/Transfer Diagnosis at time of Disposition: Sickle cell crisis Sickle cell anemia Qualifiers: Sickle-cell associated disorders: with unspecified crisis Qualified Code(s): D57.00 - Hb-SS disease with crisis, unspecified; D57.0 - Hb-SS disease with crisis - Discharge Dispostion Disposition: HOME Condition at time of disposition: Stable Decision to Admit order: No - Referrals - Patient Instructions Printed Discharge Instructions: DI for Sickle Cell Anemia, Pain Crisis -- Adult Additional Instructions: You were seen in the ER for a pain crisis. We gave you the amount of medications for your symptoms that we were comfortable giving in the department , and offered you a full workup as well including EKG and chest w-ray. Please follow up with your transitions manager rn tomorrow. Stay very well-hydrated at all times because dehydration can cause pain crisis in people with sickle cell disease. Be sure to follow up with your primary care provider regularly and always get the vaccinations recommended (people with sickle cell disease need additional types of vaccinations). Return to the ER for any new or worsening symptoms like chest pain or shortness of breath or hip pain. - Post Discharge Activity Forms/Work/School Notes: Back to Work
[2017-12-30] MEDS ORDERED: SODIUM CHLORIDE 0.9% 500 ML INFUS.BAG IV ONE (11:44)
--- NOTE | 2017-12-30 12:04 | PDOC ---
Attending Attestation - Resident Resident Name: Rosetta Pelayo - ED Attending Attestation I have performed the following: I have examined & evaluated the patient, The case was reviewed & discussed with the resident, I agree w/resident's findings & plan, Exceptions are as noted - HPI HPI: 27 yo F history sickle cell presents with painful crisis. Patient is well known to this ED. Presents with pain to the R knee, worse with ambulation. - Physicial Exam PE: GENERAL: Awake, alert, and fully oriented, in no acute distress HEAD: No signs of trauma EYES: PERRLA, EOMI, sclera anicteric, conjunctiva clear ENT: Auricles normal inspection, hearing grossly normal, nares patent, oropharynx clear without exudates. Moist mucosa NECK: Normal ROM, supple, no lymphadenopathy, JVD, or masses LUNGS: Breath sounds equal, clear to auscultation bilaterally. No wheezes, and no crackles HEART: Regular rate and rhythm, normal S1 and S2, no murmurs, rubs or gallops ABDOMEN: Soft, nontender, normoactive bowel sounds. No guarding, no rebound. No masses EXTREMITIES: R knee with pain to palpation of the patella. No effusion. Dec ROM due to pain. No erythema, no warmth. Remainder of extremities with normal range of motion, no edema. No clubbing or cyanosis. No cords, erythema, or tenderness NEUROLOGICAL: Cranial nerves II through XII grossly intact. Normal speech. Motor and sensation intact. SKIN: Warm, Dry, normal turgor, no rashes or lesions noted. - Medical Decision Making Pt agitated, requesting that benadryl be given IV push, not piggyback. I explained I will give it IVPB. She also stated she needs dilaudid 6 mg IVP or a combination of morphine and fentanyl. I would not give both at the same time, need to separate them. Confirmed her medication with her regulatory services consultant, as these are extremely high doses of medication (also we do not have IV dilaudid in the hospital at present).
[2017-12-30] MEDS ORDERED: morphine CARPU-JECT 4 MG/1 ML DISP.SYRIN IVPUSH ONE ×2 (12:18→14:34)
[2017-12-30] MEDS ORDERED: morphine SULFATE 4 MG/ML VIAL ONE ×2 (12:21→14:35)
[2017-12-30 12:52] LABS: HEMATOCRIT 26.6 % (32.4-45.2); HEMOGLOBIN 8.8 GM/dL (10.7-15.3); MCH 28.5 pg (25.7-33.7); MCHC 33.1 g/dl (32.0-36.0); MEAN PLT VOLUME 8.1 fl (7.5-11.1); PLATELET COUNT 246 K/MM3 (134-434); RBC 3.09 M/mm3 (3.60-5.2); RDW 21.8 % (11.6-15.6); RETICULOCYTES 9.41 % (0.5-1.5); WHITE BLOOD COUNT 9.9 K/mm3 (4.0-10.0)
[2017-12-30 13:10] LABS: ALBUMIN 3.6 g/dl (3.4-5.0); ALK PHOS 177 U/L (45-117); ANION GAP 6 MMOL/L (8-16); BILIRUBIN,TOTAL 1.7 mg/dL (0.2-1); BLOOD UREA NITROGEN 12 mg/dL (7-18); CALCIUM 8.7 mg/dL (8.5-10.1); CHLORIDE 104 mmol/L (98-107); CO2 27 mmol/L (21-32); GLUCOSE,RANDOM 92 mg/dL (74-106); POTASSIUM 4.5 mmol/L (3.5-5.1); SGOT/AST 58 U/L (15-37); SGPT/ALT 30 U/L (13-61); SODIUM 137 mmol/L (136-145); TOT PROT 8.8 g/dl (6.4-8.2)
[2017-12-30 13:18] LABS: INR 1.05 (0.83-1.09); PROTHROMBIN TIME (PATIENT) 12.4 SEC (9.7-13.0)
[2017-12-30] MEDS ORDERED: MORPHINE SULFATE 2 MG/ML VIAL ONE (14:35)
[2017-12-30 14:51] LABS: ANISOCYTOSIS 1+; MACROCYTOSIS 1+; SICKELED CELLS 2+; TARGET CELLS 2+
[2017-12-30 14:52] LABS: OVALOCYTE 1+
[2017-12-30 15:54] LABS: URINE APPEARANCE SLCLOUDY; URINE BILIRUBIN NEGATIVE (<2.0 mg/dL); URINE COLOR YELLOW; URINE GLUCOSE (UA) NEGATIVE (NEGATIVE); URINE KETONE NEGATIVE (NEGATIVE); URINE LEUK ESTERASE TRACE (NEGATIVE); URINE NITRITE NEGATIVE (NEGATIVE); URINE PROTEIN NEGATIVE (NEGATIVE); URINE UROBILINOGEN 4.0 E.U/dl mg/dL (0.2-1.0)
[2017-12-30 16:56] LABS: EPI CELLS MODERATE /HPF (FEW)
== END 2017-12-30 16:05 | disposition home or self-care (01) ==
LOC: JER 11:06
PROC: 3E033NZ Introduction of Analgesics, Hypnotics, Sedatives into Peripheral Vein, Percutaneous Approach (ICD-10-PCS; principal; 2017-12-30)
PROC: 3E033NZ Introduction of Analgesics, Hypnotics, Sedatives into Peripheral Vein, Percutaneous Approach (ICD-10-PCS; 2017-12-30)
PROC: 3E033NZ Introduction of Analgesics, Hypnotics, Sedatives into Peripheral Vein, Percutaneous Approach (ICD-10-PCS; 2017-12-30)
PROC: 3E033GC Introduction of Other Therapeutic Substance into Peripheral Vein, Percutaneous Approach (ICD-10-PCS; 2017-12-30)
PROC: 3E033GC Introduction of Other Therapeutic Substance into Peripheral Vein, Percutaneous Approach (ICD-10-PCS; 2017-12-30)
DX: D57.00 Hb-SS disease with crisis, unspecified (principal); I81 Portal vein thrombosis; Z79.01 Long term (current) use of anticoagulants; Z90.81 Acquired absence of spleen; K74.60 Unspecified cirrhosis of liver
CPT/HCPCS: 36415; 80053; 81003; 81015; 82550; 84484; 84703; 85025; 85044; 85610; 87077; 87086; 96374; 96375; 96376; 99282-25

== ENCOUNTER 2019-02-25 10:30 | Emergency (ER) | payer OTHER ==
[2019-02-25 10:41] VITALS: BP 102/64; PULSE 63; TEMP 98.4; BMI 36.1
[2019-02-25] MEDS ORDERED: SODIUM CHLORIDE 500 ML IV STA (11:29)
[2019-02-25] MEDS ORDERED: HYDROmorphone HCL CARPU-JECT 2 MG/1 ML DISP.SYRIN IVPB ONE ×3 (11:49→14:26)
[2019-02-25] MEDS ORDERED: ONDANSETRON 4 MG/2 ML VIAL IVPUSH ONE ×2 (11:50→13:15)
[2019-02-25 11:52] LABS: BASO % 1.6 % (0-2.0); EOS % 1.2 % (0-4.5); HEMATOCRIT 29.3 % (32.4-45.2); HEMOGLOBIN 9.8 GM/dL (10.7-15.3); LYMPH % 9.2 % (8-40); MCH 30.6 pg (25.7-33.7); MCHC 33.4 g/dl (32.0-36.0); MEAN CELL VOLUME 91.7 fl (80-96); MEAN PLT VOLUME 8.4 fl (7.5-11.1); MONO % 23.8 % (3.8-10.2); NEUT % 64.2 % (42.8-82.8); PLATELET COUNT 255 K/MM3 (134-434); RBC 3.19 M/mm3 (3.60-5.2); RDW 20.1 % (11.6-15.6); WHITE BLOOD COUNT 8.1 K/mm3 (4.0-10.0)
[2019-02-25] MEDS ORDERED: HYDROmorphone HCl 2 MG/ML VIAL ONE ×3 (11:56→14:29)
[2019-02-25] MEDS ORDERED: ONDANSETRON 4 MG/2 ML VIAL ONE ×2 (11:56→13:19)
[2019-02-25 12:14] LABS: ALBUMIN 3.4 g/dl (3.4-5.0); BILIRUBIN,TOTAL 1.9 mg/dL (0.2-1); BLOOD UREA NITROGEN 8.9 mg/dL (7-18); CALCIUM 9.1 mg/dL (8.5-10.1); CREATININE 0.6 mg/dL (0.55-1.3); POTASSIUM 4.6 mmol/L (3.5-5.1); TOT PROT 8.8 g/dl (6.4-8.2)
[2019-02-25 12:51] LABS: ANISOCYTOSIS 2+; MACROCYTOSIS 0; PLATELET ESTIMATE NORMAL; SICKELED CELLS 1+; TARGET CELLS 2+
[2019-02-25 13:03] LABS: RETICULOCYTES 5.12 % (0.5-1.5)
--- NOTE | 2019-02-25 14:55 | PDOC ---
Documentation entered by Viola Manuel SCRIBE, acting as scribe for Red Hwang MD. Red Hwang MD: This documentation has been prepared by the Kaleb bell Sammi, SCRIBE, under my direction and personally reviewed by me in its entirety. I confirm that the documentation accurately reflects all work, treatment, procedures, and medical decision making performed by me. History of Present Illness - General Chief Complaint: Sickle Cell Crisis Stated Complaint: SICKLE CELL Time Seen by Provider: 02/25/19 11:29 - History of Present Illness Initial Comments: 02/25/19 11:56 The patient is a 28 year old female with PMH of SS sickle cell disease, portal vein thrombosis, liver disease, who presents for evaluation of 2 weeks of back pain associated with sickle cell crisis. She has taken her prescribed oxycodone with no relief. She reports recent episode of bronchitis in January. Allergies: Morphine Past History - Past Medical History Allergies/Adverse Reactions: Allergies Allergy/AdvReac Type Severity Reaction Status Date / Time morphine Allergy Verified 12/30/17 11:11 Home Medications: Ambulatory Orders Apixaban [Eliquis] 10 mg DAILY 04/26/16 Folic Acid 1 mg PO DAILY 04/26/16 Hydroxyurea [Hydrea] 500 mg PO BID 04/26/16 Nadolol 40 mg PO DAILY 04/26/16 Oxycodone HCl 5 mg PO TID PRN 04/26/16 Anemia: Yes (sickle cell) Cardiac Disorders: Yes (RIGHT ATRIAL CLOT (RESOLVED)) COPD: No DVT: No GI Disorders: Yes (BENIGN LIVER CYST) HTN: Yes (Portal hypertension) Liver Disease: Yes (Cirrhosis) - Surgical History Abdominal Surgery: Yes (spleen) Appendectomy: Yes Cholecystectomy: Yes - Immunization History Immunization Up to Date: No - Psycho Social/Smoking Cessation Hx Smoking History: Never smoked Have you smoked in the past 12 months: No Information on smoking cessation initiated: No 'Breaking Loose' booklet given: 08/20/17 Hx Alcohol Use: No Drug/Substance Use Hx: No Substance Use Type: None Review of Systems - Review of Systems Comments:: 02/25/19 11:57 CONSTITUTIONAL: No fever, no chills, no fatigue EYES: No visual changes ENT: No ear pain, no sore throat CARDIOVASCULAR: No chest pain, no palpitations RESPIRATORY: No cough, no SOB GI: No abdominal pain, no nausea, no vomiting, no constipation, no diarrhea GENITOURINARY: No dysuria, no frequency, no hematuria MUSKULOSKELETAL: +back pain. no joint pain, no myalgias SKIN: No rash NEURO: No headache *Physical Exam - Vital Signs Last Vital Signs Temp Pulse Resp BP Pulse Ox 98.4 F 63 18 102/64 100 02/25/19 10:39 02/25/19 10:39 02/25/19 10:39 02/25/19 10:39 02/25/19 10:39 - Physical Exam 02/25/19 14:52 EXAMINATION CONSTITUTIONAL: Patient is awake and alert, well-nourished, in moderate distress HEAD: Normocephalic; atraumatic EYES: PERRL; EOM intact, No scleral icterus ENMT: External appears normal; mm-dry NECK: Supple; non-tender; no cervical lymphadenopathy CARD: Normal S1, S2; no murmurs, rubs, or gallops RESP: Normal chest excursion with respiration; breath sounds clear and equal bilaterally; no wheezes, rhonchi, or rales; + port in left ant chest ABD: Soft, non-distended; non-tender; no palpable organomegaly, no palpable hernias BACK: no deform; + mild midline sacral ttp EXT: Normal ROM in all four extremities; non-tender to palpation; distal pulses intact SKIN: Warm, dry, no rash NEURO: No focal neurological deficiencies. ED Treatment Course - LABORATORY CBC & Chemistry Diagram: 02/25/19 10:59 02/25/19 10:59 - ADDITIONAL ORDERS Additional order review: Laboratory Results 02/25/19 02/25/19 02/25/19 12:22 11:19 10:59 Sodium 137 Potassium 4.6 Chloride 105 Carbon Dioxide 27 Anion Gap 5 L BUN 8.9 Creatinine 0.6 Est GFR (CKD-EPI)AfAm 141.76 Est GFR (CKD-EPI)NonAf 122.31 Random Glucose 90 Calcium 9.1 Total Bilirubin 1.9 H AST 56 H ALT 28 Alkaline Phosphatase 213 H Total Protein 8.8 H Albumin 3.4 Serum , Qual Negative Blood Type O POSITIVE Antibody Screen Negative 02/25/19 10:59 RBC 3.19 L MCV 91.7 MCHC 33.4 RDW 20.1 H MPV 8.4 Neutrophils % 64.2 D Lymphocytes % 9.2 D Monocytes % 23.8 H D Eosinophils % 1.2 Basophils % 1.6 - Medications Given in the ED: ED Medications Discontinued Medications Generic Name Dose Route Start Last Admin Trade Name Kevinq PRN Reason Stop Dose Admin Diphenhydramine HCl 50 mg 02/25/19 11:49 02/25/19 12:02 Benadryl Injection - IVPB 02/25/19 11:50 50 mg ONCE ONE Administration Diphenhydramine HCl 50 mg 02/25/19 13:15 02/25/19 13:31 Benadryl Injection - IVPB 02/25/19 13:16 50 mg ONCE ONE Administration Hydromorphone HCl 6 mg 02/25/19 11:49 02/25/19 12:02 Dilaudid Injection - IVPB 02/25/19 11:50 6 mg ONCE ONE Administration Hydromorphone HCl 6 mg 02/25/19 13:15 02/25/19 13:31 Dilaudid Injection - IVPB 02/25/19 13:16 6 mg ONCE ONE Administration Sodium Chloride 500 mls @ 500 mls/hr 02/25/19 11:29 02/25/19 11:38 Normal Saline - IV 02/25/19 12:28 500 mls/hr ASDIR STA Administration Ondansetron HCl 4 mg 02/25/19 11:50 02/25/19 12:02 Zofran Injection IVPUSH 02/25/19 11:51 4 mg ONCE ONE Administration Ondansetron HCl 4 mg 02/25/19 13:15 02/25/19 13:31 Zofran Injection IVPUSH 02/25/19 13:16 4 mg ONCE ONE Administration Medical Decision Making - Medical Decision Making 02/25/19 14:55 Patient is 28-year-old female with history of sickle cell type SS, liver cirrhosis, portal vein thrombosis on Eliquis, esophageal varices presents with signs and symptoms of acute vaso-occlusive crisis. There is no evidence of acute chest. There is no indication for packed RBC transfusion at this time. Patient received pain meds, H2 1 blockers and antiemetics. Patient reports improvement in the level of her pain and wishes to be discharged. Will discharge with outpatient heme follow-up. Discharge - Discharge Information Problems reviewed: Yes Clinical Impression/Diagnosis: Sickle cell pain crisis Condition: Stable Disposition: HOME - Follow up/Referral Referrals: Migue Fuentes MD [Staff Physician] - - Patient Discharge Instructions Patient Printed Discharge Instructions: DI for Sickle Cell Anemia, Pain Crisis -- Adult - Post Discharge Activity
== END 2019-02-25 15:04 | disposition home or self-care (01) ==
LOC: JER 10:30
PROC: 3E033NZ Introduction of Analgesics, Hypnotics, Sedatives into Peripheral Vein, Percutaneous Approach (ICD-10-PCS; principal; 2019-02-25)
PROC: 3E033GC Introduction of Other Therapeutic Substance into Peripheral Vein, Percutaneous Approach (ICD-10-PCS; 2019-02-25)
PROC: 3E0337Z Introduction of Electrolytic and Water Balance Substance into Peripheral Vein, Percutaneous Approach (ICD-10-PCS; 2019-02-25)
DX: D57.80 Other sickle-cell disorders without crisis (principal); K74.60 Unspecified cirrhosis of liver; I81 Portal vein thrombosis; Z79.01 Long term (current) use of anticoagulants; Z88.6 Allergy status to analgesic agent; I85.10 Secondary esophageal varices without bleeding
CPT/HCPCS: 36415; 80053; 84703; 85025; 85044; 86850; 86900; 86901; 96361; 96374; 96375; 96376; 99284-25

== ENCOUNTER 2019-03-09 11:25 | Emergency (ER) | payer OTHER ==
[2019-03-09 11:33] VITALS: TEMP 98; BMI 36.3
[2019-03-09] MEDS ORDERED: ONDANSETRON 4 MG/2 ML VIAL IVPUSH ONE ×2 (12:13→15:11)
[2019-03-09] MEDS ORDERED: SODIUM CHLORIDE 0.9% 500 ML INFUS.BAG IV ONE (12:16)
--- NOTE | 2019-03-09 12:22 | PDOC ---
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 She states that she had an endoscopy by her GI doctor 3 days ago to her assess her esophageal varices. After having endoscopy she states she always has a pain crisis. She has been taking her oxycodone without relief. Her last episode of acute chest syndrome was 3 years ago and she has been intubated many times, last several years ago. She denies any shortness of breath or chest pain. The patient states she has joint pain in her legs and her low back. She states this is typical of a pain crisis for her. She denies any fevers or chills. <Clara Youssef - Last Filed: 03/09/19 17:11> <Tino Bergman - Last Filed: 03/09/19 17:32> - General Chief Complaint: Sickle Cell Crisis Stated Complaint: SICKLE CELL Time Seen by Provider: 03/09/19 11:52 Past History - Past Medical History Anemia: Yes (sickle cell) Cardiac Disorders: Yes (RIGHT ATRIAL CLOT (RESOLVED)) COPD: No DVT: No GI Disorders: Yes (BENIGN LIVER CYST) HTN: Yes (Portal hypertension) Liver Disease: Yes (Cirrhosis) - Surgical History Abdominal Surgery: Yes (spleen) Appendectomy: Yes Cholecystectomy: Yes - Immunization History Immunization Up to Date: No - Psycho Social/Smoking Cessation Hx Smoking History: Never smoked Have you smoked in the past 12 months: No 'Breaking Loose' booklet given: 08/20/17 Hx Alcohol Use: No Drug/Substance Use Hx: No Substance Use Type: None <Clara Youssef - Last Filed: 03/09/19 17:11> <Tino Bergman - Last Filed: 03/09/19 17:32> - Past Medical History Allergies/Adverse Reactions: Allergies Allergy/AdvReac Type Severity Reaction Status Date / Time morphine Allergy Verified 03/09/19 11:30 Home Medications: Ambulatory Orders Apixaban [Eliquis] 10 mg DAILY 04/26/16 Folic Acid 1 mg PO DAILY 04/26/16 Hydroxyurea [Hydrea] 500 mg PO BID 04/26/16 Nadolol 40 mg PO DAILY 04/26/16 Oxycodone HCl 5 mg PO TID PRN 04/26/16 Review of Systems - Review of Systems Comments:: 03/09/19 12:19 - Review of Systems Able to Perform ROS?: Yes Constitutional: No: Fever, Chills, Loss of Appetite, Night Sweats, Weakness HEENTM: No: Eye Pain, Vision changes, Ear Pain, Throat Pain, Throat Swelling, Mouth Pain, Difficulty Swallowing Respiratory: No: Cough, Shortness of Breath, Wheezing, Sputum Production Cardiac (ROS): No: Chest Pain, Chest Tightness, Palpitations, Irregular Heart Beat, Edema ABD/GI: No: Nausea, Vomiting, Abdominal Pain, Diarrhea : No Dysuria, No Hematuria, No Frequency, No Urgency, No Vaginal Discharge/ Pain Musculoskeletal: No: Muscle Pain, , Muscle Weakness, Neck Pain; + Back Pain, + Joint Pain Integumentary: No: Lesions, Rash Neurological: No: Headache, Numbness, Tingling, Weakness, Speech Difficulties <Clara Youssef - Last Filed: 03/09/19 17:11> *Physical Exam - Vital Signs Last Vital Signs Temp Pulse Resp BP Pulse Ox 98.0 F 75 16 127/72 100 03/09/19 11:32 03/09/19 11:32 03/09/19 11:32 03/09/19 11:32 03/09/19 11:32 - Physical Exam 03/09/19 12:20 - Physical Exam General Appearance: Nourished, Appropriately Dressed, No Distress HEENT: EOMI, Normal Voice, No Pharyngeal Erythema, No Muffled/Hoarse voice, No Tonsillar Exudate, No Tonsillar Erythema, No Nasal Congestion, No Rhinorrhea, Hearing Grossly Normal, TMs Normal, No TM Bulging, No TM Dullness, No TM Erythema Neck: Supple, No Lymphadenopathy (R), No Lymphadenopathy (L), No Rigidity, No Decreased range of motion Respiratory/Chest: Lungs Clear, Normal Breath Sounds. No Respiratory Distress, No Accessory Muscle Use Cardiovascular: Regular Rhythm, Regular Rate, S1, S2 Gastrointestinal/Abdominal: Normal Bowel Sounds, Soft. Non-tender, No Guarding , No Rebound, No Rigidity Musculoskeletal: Normal Inspection. No Decreased Range of Motion; Diffuse tenderness to palpation to the bilateral lower extremities and lower back. No specific midline back tenderness to palpation. Extremity: Normal Capillary Refill, Normal Inspection Integumentary: Normal Color, Dry. 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, Fully Oriented, Alert, Normal Mood/Affect, Normal Response <Clara Youssef D - Last Filed: 03/09/19 17:11> - Vital Signs Last Vital Signs Temp Pulse Resp BP Pulse Ox 98.0 F 75 16 127/72 100 03/09/19 11:32 03/09/19 11:32 03/09/19 11:32 03/09/19 11:32 03/09/19 11:32 <Tino Bergman - Last Filed: 03/09/19 17:32> ED Treatment Course - LABORATORY CBC & Chemistry Diagram: 03/09/19 13:40 03/09/19 13:40 - ADDITIONAL ORDERS Additional order review: 03/09/19 17:13 Laboratory Tests 03/09/19 03/09/19 13:40 13:40 Retic Count 6.10 H D Serum , Qual Negative <Clara Youssef D - Last Filed: 03/09/19 17:11> - LABORATORY CBC & Chemistry Diagram: 03/09/19 13:40 03/09/19 13:40 - ADDITIONAL ORDERS Additional order review: Laboratory Results 03/09/19 03/09/19 13:40 13:40 Sodium 140 Potassium 4.2 Chloride 106 Carbon Dioxide 27 Anion Gap 7 L BUN 5.5 L Creatinine 0.5 L Est GFR (CKD-EPI)AfAm 150.52 Est GFR (CKD-EPI)NonAf 129.87 Random Glucose 87 Calcium 8.6 Total Bilirubin 2.0 H AST 58 H ALT 30 Alkaline Phosphatase 185 H Total Protein 8.3 H Albumin 3.4 Serum , Qual Negative 03/09/19 13:40 RBC 3.06 L MCV 90.9 MCHC 33.1 RDW 20.0 H MPV 8.8 Neutrophils % No Result Required. Lymphocytes % No Result Required. - Medications Given in the ED: ED Medications Discontinued Medications Generic Name Dose Route Start Last Admin Trade Name Freq PRN Reason Stop Dose Admin Diphenhydramine HCl 25 mg 03/09/19 12:13 03/09/19 13:45 Benadryl Injection - IVPB 03/09/19 12:14 25 mg ONCE ONE Administration Diphenhydramine HCl 25 mg 03/09/19 15:11 03/09/19 15:38 Benadryl Injection - IVPB 03/09/19 15:12 25 mg ONCE ONE Administration Hydromorphone HCl 6 mg 03/09/19 13:25 03/09/19 13:45 Dilaudid Injection - IVPUSH 03/09/19 13:26 6 mg ONCE ONE Administration Hydromorphone HCl 6 mg 03/09/19 15:11 03/09/19 15:38 Dilaudid Injection - IVPB 03/09/19 15:12 6 mg ONCE ONE Administration Ondansetron HCl 6 mg 03/09/19 12:13 03/09/19 14:06 Zofran Injection IVPUSH 03/09/19 12:14 Not Given ONCE ONE Ondansetron HCl 4 mg 03/09/19 15:11 03/09/19 15:38 Zofran Injection IVPUSH 03/09/19 15:12 4 mg ONCE ONE Administration Sodium Chloride 2,000 ml 03/09/19 12:16 03/09/19 13:45 Normal Saline - IV 03/09/19 12:17 2,000 ml ONCE ONE Administration <Tino Bergman - Last Filed: 03/09/19 17:32> Medical Decision Making - Medical Decision Making 03/09/19 12:20 Patient is a 28-year old female who presents to the ED with a vaso-occlusive crisis secondary to her sickle cell disease. -Will order labs for further evaluation -Normal saline bolus x2 -Narcotic pain medication, Benadryl, Zofran -We will reassess 03/09/19 15:10 The patient states that her pain is better but she is still having pain. She is requesting another dose of medications. We will treat her with a second dose and reassess. 03/09/19 17:11 Dr. Bergman and I have had an extensive discussion with the patient regarding her medical condition. The patient states that she may require another dose of pain medication prior to leaving the ED and she would like to get discharged as she has a hematology appointment tomorrow. Dr. Bergman has made the patient aware that it is not typical procedure to do a third dose of medication without admitting the patient to the hospital as she will likely require further evaluation and treatment which cannot be achieved in the ED. The patient states that she would prefer to try one last dose of medication and be discharged home. She does have an appointment with her geophysical prospecting permit agent tomorrow. We have decided to give the patient 1 mg of Dilaudid and another 25 mg of Benadryl. Will now discharge the patient and she can follow-up with her geophysical prospecting permit agent as scheduled tomorrow. She understands and agrees to treatment and plan and she is stable for discharge. <Clara Youssef - Last Filed: 03/09/19 17:11> - Medical Decision Making 03/09/19 17:32 I reviewed the case of the mid-level practitioner and was available for consultation while in the emergency department <Tino Bergman - Last Filed: 03/09/19 17:32> Discharge - Discharge Information Problems reviewed: Yes <Clara oYussef - Last Filed: 03/09/19 17:11> <Tino Bergman - Last Filed: 03/09/19 17:32> - Discharge Information Clinical Impression/Diagnosis: Sickle cell pain crisis Condition: Stable Disposition: HOME - Patient Discharge Instructions Patient Printed Discharge Instructions: DI for Sickle Cell Anemia, Pain Crisis -- Adult Additional Instructions: Get plenty of rest and drink plenty of fluids. Resume your normal medications. Be sure to follow-up with your geophysical prospecting permit agent tomorrow for further evaluation and treatment. - Post Discharge Activity Work/Back to School Note: Back to Work
[2019-03-09] MEDS ORDERED: ONDANSETRON 4 MG/2 ML VIAL ONE ×2 (13:24→15:31)
[2019-03-09] MEDS ORDERED: HYDROmorphone HCL CARPU-JECT 2 MG/1 ML DISP.SYRIN IVPUSH ONE ×2 (13:25→16:51)
[2019-03-09] MEDS ORDERED: HYDROmorphone HCl 2 MG/ML VIAL ONE ×3 (13:26→17:17)
[2019-03-09 14:42] LABS: HEMATOCRIT 27.9 % (32.4-45.2); HEMOGLOBIN 9.2 GM/dL (10.7-15.3); MCH 30.1 pg (25.7-33.7); MCHC 33.1 g/dl (32.0-36.0); MEAN CELL VOLUME 90.9 fl (80-96); MEAN PLT VOLUME 8.8 fl (7.5-11.1); PLATELET COUNT 284 K/MM3 (134-434); RBC 3.06 M/mm3 (3.60-5.2); WHITE BLOOD COUNT 8.2 K/mm3 (4.0-10.0)
[2019-03-09 15:01] LABS: ALBUMIN 3.4 g/dl (3.4-5.0); BLOOD UREA NITROGEN 5.5 mg/dL (7-18); CALCIUM 8.6 mg/dL (8.5-10.1); CREATININE 0.5 mg/dL (0.55-1.3); POTASSIUM 4.2 mmol/L (3.5-5.1); TOT PROT 8.3 g/dl (6.4-8.2)
[2019-03-09] MEDS ORDERED: HYDROmorphone HCL CARPU-JECT 2 MG/1 ML DISP.SYRIN IVPB ONE (15:11)
[2019-03-09 16:14] LABS: ANISOCYTOSIS 2+; HOWELL-JOLLY BODIES FEW; OVALOCYTE 1+; PLATELET ESTIMATE ADEQUATE; SICKELED CELLS FEW; TARGET CELLS 2+
[2019-03-09 17:38] VITALS: BP 128/83; PULSE 89
== END 2019-03-09 17:49 | disposition home or self-care (01) ==
LOC: JER 11:25
PROC: 3E033GC Introduction of Other Therapeutic Substance into Peripheral Vein, Percutaneous Approach (ICD-10-PCS; principal; 2019-03-09)
PROC: 3E033NZ Introduction of Analgesics, Hypnotics, Sedatives into Peripheral Vein, Percutaneous Approach (ICD-10-PCS; 2019-03-09)
PROC: 3E033GC Introduction of Other Therapeutic Substance into Peripheral Vein, Percutaneous Approach (ICD-10-PCS; 2019-03-09)
PROC: 3E033GC Introduction of Other Therapeutic Substance into Peripheral Vein, Percutaneous Approach (ICD-10-PCS; 2019-03-09)
PROC: 3E033GC Introduction of Other Therapeutic Substance into Peripheral Vein, Percutaneous Approach (ICD-10-PCS; 2019-03-09)
DX: D57.00 Hb-SS disease with crisis, unspecified (principal); K74.60 Unspecified cirrhosis of liver; K76.6 Portal hypertension; Z98.890 Other specified postprocedural states; Z90.81 Acquired absence of spleen; Z90.49 Acquired absence of other specified parts of digestive tract; Z79.01 Long term (current) use of anticoagulants; Z88.5 Allergy status to narcotic agent
CPT/HCPCS: 36415; 80053; 84703; 85025; 85044; 96374; 96375; 96376; 99283-25

== ENCOUNTER 2019-03-24 11:01 | Emergency (ER) | payer OTHER ==
[2019-03-24 11:16] VITALS: PULSE 67; BMI 38.0
[2019-03-24] MEDS ORDERED: ONDANSETRON 4 MG/2 ML VIAL IVPUSH ONE (11:53)
[2019-03-24] MEDS ORDERED: SODIUM CHLORIDE 0.9% 500 ML INFUS.BAG IV ONE (11:53)
[2019-03-24] MEDS ORDERED: HYDROmorphone HCL CARPU-JECT 2 MG/1 ML DISP.SYRIN IVPB ONE (11:53)
--- NOTE | 2019-03-24 12:05 | PDOC ---
History of Present Illness - General History Source: Patient Exam Limitations: No Limitations - History of Present Illness Initial Comments: 03/24/19 12:04 Patient is a 28-year-old female with a history of sickle cell disease, Complicated with portal vein thrombosis, portal hypertension, multiple atrial thromboses that have resolved, cirrhosis of the liver and multiple episodes of acute chest syndrome in the past. She last had acute chest syndrome 3 years ago as well as was intubated 3 years ago. She states for the last 2 weeks she has been trying to manage her sickle cell crisis which has not resolved. She has been taking her at home oxycodone without any relief. The patient states that she did she her mathematics academic chair two weeks ago and was again given fluid. The patient returns today with low back pain, hip pain. She denies any sob or chest pain at this time. <Clara Youssef - Last Filed: 03/24/19 17:01> <Tino Bergman - Last Filed: 03/24/19 18:21> - General Chief Complaint: Sickle Cell Crisis Stated Complaint: SICKLE CELL Time Seen by Provider: 03/24/19 11:28 Past History - Past Medical History Anemia: Yes (sickle cell) Cardiac Disorders: Yes (RIGHT ATRIAL CLOT (RESOLVED)) COPD: No DVT: No GI Disorders: Yes (BENIGN LIVER CYST) HTN: Yes (Portal hypertension) Liver Disease: Yes (Cirrhosis) - Surgical History Abdominal Surgery: Yes (spleen) Appendectomy: Yes Cholecystectomy: Yes - Immunization History Immunization Up to Date: No - Psycho Social/Smoking Cessation Hx Smoking History: Never smoked Have you smoked in the past 12 months: No Information on smoking cessation initiated: No 'Breaking Loose' booklet given: 08/20/17 Hx Alcohol Use: No Drug/Substance Use Hx: No Substance Use Type: None <Clara Youssef - Last Filed: 03/24/19 17:01> <Tino Bergman - Last Filed: 03/24/19 18:21> - Past Medical History Allergies/Adverse Reactions: Allergies Allergy/AdvReac Type Severity Reaction Status Date / Time morphine Allergy Verified 03/09/19 11:30 Home Medications: Ambulatory Orders Apixaban [Eliquis] 10 mg DAILY 04/26/16 Folic Acid 1 mg PO DAILY 04/26/16 Hydroxyurea [Hydrea] 500 mg PO BID 04/26/16 Nadolol 40 mg PO DAILY 04/26/16 Oxycodone HCl 5 mg PO TID PRN 04/26/16 Review of Systems - Review of Systems Comments:: 03/24/19 12:34 - Review of Systems Able to Perform ROS?: Yes Constitutional: No: Fever, Chills, Loss of Appetite, Night Sweats, Weakness HEENTM: No: Eye Pain, Vision changes, Ear Pain, Throat Pain, Throat Swelling, Mouth Pain, Difficulty Swallowing Respiratory: No: Cough, Shortness of Breath, Wheezing, Sputum Production Cardiac (ROS): No: Chest Pain, Chest Tightness, Palpitations, Irregular Heart Beat, Edema ABD/GI: No: Nausea, Vomiting, Abdominal Pain, Diarrhea : No Dysuria, No Hematuria, No Frequency, No Urgency, No Vaginal Discharge/ Pain, No Penile Discharge/Pain Musculoskeletal: No: Muscle Pain, Muscle Weakness, Neck Pain; + low back pain and b/l hip pain Integumentary: No: Lesions, Rash Neurological: No: Headache, Numbness, Tingling, Weakness, Speech Difficulties <Clara Youssef D - Last Filed: 03/24/19 17:01> *Physical Exam - Vital Signs Last Vital Signs Temp Pulse Resp BP Pulse Ox 98.1 F 67 18 110/64 100 03/24/19 11:15 03/24/19 11:15 03/24/19 11:15 03/24/19 11:15 03/24/19 11:15 - Physical Exam 03/24/19 12:35 - Physical Exam General Appearance: Nourished, Appropriately Dressed, No Distress HEENT: EOMI, Normal Voice, No Muffled/Hoarse voice, No Nasal Congestion, No Rhinorrhea, Hearing Grossly Normal, slighly dry oral mucosa Neck: Supple, No Lymphadenopathy (R), No Lymphadenopathy (L), No Rigidity, No Decreased range of motion Respiratory/Chest: Lungs Clear, Normal Breath Sounds. No Respiratory Distress, No Accessory Muscle Use Cardiovascular: Regular Rhythm, Regular Rate, S1, S2 Gastrointestinal/Abdominal: Normal Bowel Sounds, Soft. Non-tender, No Guarding , No Rebound, No Rigidity Musculoskeletal: Normal Inspection. No Decreased Range of Motion; diffuse low back tenderness to palpation without any decreased ROM, diffuse b/l hip pain to palpation without any decreased ROM. Extremity: Normal Capillary Refill, Normal Inspection Integumentary: Normal Color, Dry. 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, Fully Oriented, Alert, Normal Mood/Affect, Normal Response <Clara Youssef - Last Filed: 03/24/19 17:01> - Vital Signs Last Vital Signs Temp Pulse Resp BP Pulse Ox 36.6 F L 67 17 93/55 L 96 03/24/19 16:51 03/24/19 16:51 03/24/19 16:51 03/24/19 16:51 03/24/19 16:51 <Tino Bergman - Last Filed: 03/24/19 18:21> ED Treatment Course - LABORATORY CBC & Chemistry Diagram: 03/24/19 13:00 03/24/19 13:00 - ADDITIONAL ORDERS Additional order review: 03/24/19 15:43 Laboratory Tests 03/24/19 03/24/19 13:00 13:00 Retic Count 7.03 H D PT with INR 14.20 H INR 1.20 H <Clara Youssef - Last Filed: 03/24/19 17:01> - LABORATORY CBC & Chemistry Diagram: 03/24/19 13:00 03/24/19 13:00 - ADDITIONAL ORDERS Additional order review: Laboratory Results 03/24/19 03/24/19 13:00 13:00 PT with INR 14.20 H INR 1.20 H Sodium 142 Potassium 4.3 Chloride 110 H Carbon Dioxide 21 Anion Gap No Result Required. BUN 6.9 L Creatinine 0.6 Est GFR (CKD-EPI)AfAm 141.76 Est GFR (CKD-EPI)NonAf 122.31 Random Glucose 99 Calcium 8.5 Total Bilirubin 2.2 H AST 67 H ALT 31 Alkaline Phosphatase 230 H Total Protein 8.6 H Albumin 3.4 03/24/19 13:00 RBC 3.00 L MCV 88.9 MCHC 34.1 RDW 19.9 H MPV 8.3 Neutrophils % 65.2 Lymphocytes % 11.6 D Monocytes % 19.9 H Eosinophils % 1.6 Basophils % 1.7 - Medications Given in the ED: ED Medications Discontinued Medications Generic Name Dose Route Start Last Admin Trade Name Freq PRN Reason Stop Dose Admin Diphenhydramine HCl 25 mg 03/24/19 11:53 03/24/19 13:23 Benadryl Injection - IVPUSH 03/24/19 11:54 25 mg ONCE ONE Administration Diphenhydramine HCl 25 mg 03/24/19 14:45 03/24/19 15:02 Benadryl Injection - IVPUSH 03/24/19 14:46 25 mg ONCE ONE Administration Diphenhydramine HCl 25 mg 03/24/19 16:12 03/24/19 16:27 Benadryl Injection - IVPUSH 03/24/19 16:13 25 mg ONCE ONE Administration Hydromorphone HCl 6 mg 03/24/19 11:53 03/24/19 13:22 Dilaudid Injection - IVPB 03/24/19 11:54 6 mg ONCE ONE Administration Hydromorphone HCl 6 mg 03/24/19 14:45 03/24/19 15:03 Dilaudid Injection - IVPUSH 03/24/19 14:46 6 mg ONCE ONE Administration Ondansetron HCl 4 mg 03/24/19 11:53 03/24/19 13:23 Zofran Injection IVPUSH 03/24/19 11:54 4 mg ONCE ONE Administration Sodium Chloride 2,000 ml 03/24/19 11:53 03/24/19 13:28 Normal Saline - IV 03/24/19 11:54 2,000 ml ONCE ONE Administration <Tino Bergman - Last Filed: 03/24/19 18:21> Medical Decision Making - Medical Decision Making 03/24/19 12:37 Assessment: Patient is a 28-year-old female with a sickle cell crisis. Plan: We will treat the patient with 6mg of Dilaudid and 25 mg of Benadryl. I will give her Zofran as she is feeling slightly nauseous. I have made the patient aware that we can try to relieve her sickle crisis with fluids and medications. We will give her 2 rounds of medication but if her symptoms persist we will admit her to the hospital for acute pain crisis. The patient understands and agrees with this treatment and plan. -labs including reticulocyte count ordered -fluids, 2L ordered -Dilaudid/benadryl/zofran ordered -will reassess 03/24/19 14:46 The patient's pain is currently poorly controlled and we will give a second round of pain medications. She has been made aware that if the second round of pain medication does not help then we will suggest admission to the hospital for optimization. 03/24/19 16:13 Pt states that she is feeling very itchy and would like one more dose of Benadryl and then she would like to go home. The patient states that she is unable to stay in the hospital secondary to child and adolescent psychiatrist. She will get one more dose of Benadryl prior to being discharged. 03/24/19 17:01 Patient feeling much better after getting the Benadryl and believes that she can tolerate her pain at home. She has a follow-up appointment with her mathematics academic chair for treatment on Saturday which is in 3 days. She understands and agrees with this treatment and plan and the patient is stable for discharge. <Clara Youssef - Last Filed: 03/24/19 17:01> - Medical Decision Making 03/24/19 18:20 I reviewed the case of the mid-level practitioner and was available for consultation while in the emergency department <Tino Bergman - Last Filed: 03/24/19 18:21> Discharge - Discharge Information Problems reviewed: Yes <Clara Youssef - Last Filed: 03/24/19 17:01> <Tino Bergman - Last Filed: 03/24/19 18:21> - Discharge Information Clinical Impression/Diagnosis: Sickle cell crisis Condition: Stable Disposition: HOME - Patient Discharge Instructions Patient Printed Discharge Instructions: DI for Sickle Cell Anemia, Pain Crisis -- Adult Additional Instructions: Get plenty of rest and increase your fluids. Take your at home pain medications as prescribed to help with your sickle crisis pain. Be sure to follow-up with your mathematics academic chair as scheduled in 3 days. Return to the emergency department for any shortness of breath, chest pain, weakness or any other worsening symptoms.
[2019-03-24] MEDS ORDERED: ONDANSETRON 4 MG/2 ML VIAL ONE ×2 (12:10→13:16)
[2019-03-24] MEDS ORDERED: HYDROmorphone HCl 2 MG/ML VIAL ONE ×3 (12:10→14:51)
[2019-03-24 13:25] LABS: BASO % 1.7 % (0-2.0); EOS % 1.6 % (0-4.5); HEMATOCRIT 26.6 % (32.4-45.2); HEMOGLOBIN 9.1 GM/dL (10.7-15.3); LYMPH % 11.6 % (8-40); MCH 30.3 pg (25.7-33.7); MCHC 34.1 g/dl (32.0-36.0); MEAN CELL VOLUME 88.9 fl (80-96); MEAN PLT VOLUME 8.3 fl (7.5-11.1); MONO % 19.9 % (3.8-10.2); NEUT % 65.2 % (42.8-82.8); PLATELET COUNT 285 K/MM3 (134-434); RDW 19.9 % (11.6-15.6); WHITE BLOOD COUNT 7.4 K/mm3 (4.0-10.0)
[2019-03-24 13:33] LABS: INR 1.2 (0.83-1.09); PROTHROMBIN TIME (PATIENT) 14.2 SEC (9.7-13.0)
[2019-03-24 14:11] LABS: ADD RBC MORPHOLOGY YES; ANISOCYTOSIS 2+; SICKELED CELLS 1+; TARGET CELLS 2+
[2019-03-24 14:12] LABS: OVALOCYTE 2+; PLATELET ESTIMATE ADEQUATE
[2019-03-24] MEDS ORDERED: HYDROmorphone HCL CARPU-JECT 2 MG/1 ML DISP.SYRIN IVPUSH ONE (14:45)
[2019-03-24 15:19] LABS: ALBUMIN 3.4 g/dl (3.4-5.0); ALK PHOS 230 U/L (45-117); BILIRUBIN,TOTAL 2.2 mg/dL (0.2-1); BLOOD UREA NITROGEN 6.9 mg/dL (7-18); CALCIUM 8.5 mg/dL (8.5-10.1); CO2 21 mmol/L (21-32); CREATININE 0.6 mg/dL (0.55-1.3); GLUCOSE,RANDOM 99 mg/dL (74-106); SGOT/AST 67 U/L (15-37); SGPT/ALT 31 U/L (13-61); TOT PROT 8.6 g/dl (6.4-8.2)
[2019-03-24 15:20] LABS: POTASSIUM 4.3 mmol/L (3.5-5.1); SODIUM 142 mmol/L (136-145)
[2019-03-24 15:21] LABS: CHLORIDE 110 mmol/L (98-107)
[2019-03-24 16:53] VITALS: BP 93/55; TEMP 36.6
[2019-03-24] MEDS ORDERED: VANCOMYCIN/HEPARIN - ANTIBIOTIC LOCK 3 ML (RESTRICTED TO ID) IVPUSH ONE (17:17)
== END 2019-03-24 17:43 | disposition home or self-care (01) ==
LOC: JER 11:01
PROC: 3E033NZ Introduction of Analgesics, Hypnotics, Sedatives into Peripheral Vein, Percutaneous Approach (ICD-10-PCS; principal; 2019-03-24)
PROC: 3E033GC Introduction of Other Therapeutic Substance into Peripheral Vein, Percutaneous Approach (ICD-10-PCS; 2019-03-24)
PROC: 3E033GC Introduction of Other Therapeutic Substance into Peripheral Vein, Percutaneous Approach (ICD-10-PCS; 2019-03-24)
DX: D57.00 Hb-SS disease with crisis, unspecified (principal); K76.6 Portal hypertension; I81 Portal vein thrombosis; K74.60 Unspecified cirrhosis of liver
CPT/HCPCS: 36415; 80053; 85025; 85044; 85610; 96374; 96375; 96376; 99285-25

== ENCOUNTER 2019-04-11 02:34 | Inpatient (IN) | payer OTHER ==
[2019-04-11 02:47] VITALS: BMI 37.2
--- NOTE | 2019-04-11 03:42 | PDOC ---
Attending Attestation - Resident Resident Name: Jimi Grant - ED Attending Attestation I have performed the following: I have examined & evaluated the patient, The case was reviewed & discussed with the resident, I agree w/resident's findings & plan - HPI HPI: 04/11/19 03:53 Pt comes with sickle call crisis; she has never had a normal retic count. Pt is leydi cindy sickle. We will treat with dilaudid and saline - Physicial Exam PE: 04/11/19 05:19 Agree with resident exam - Medical Decision Making 04/11/19 05:17 Pt received meds and she was feeling better for a bit. Now with worsening pain ; we will redose her dilaudid. 04/11/19 19:37 Signed out to the day ER team to continue care
[2019-04-11] MEDS ORDERED: HYDROmorphone HCL CARPU-JECT 2 MG/1 ML DISP.SYRIN IVPUSH ONE ×3 (03:52→07:25)
--- NOTE | 2019-04-11 03:52 | PDOC ---
History of Present Illness - General Chief Complaint: Pain Stated Complaint: SICKLE CELL CRISIS Time Seen by Provider: 04/11/19 03:26 - History of Present Illness Initial Comments: Erika Doan is a 28 y/o female with hx of sickle cell disease, portal vein thrombosis, portal HTN, multiple atrial thromboses (resolved), liver cirrhosis , multiple episodes of acute chest syndrome in the past, presenting today with lower back pain and lower extremity pain that started 2 days ago. Reports that this pain is similar to her previous sickle cell crises. Describes the pain as throbbing and intermittent. Denies chest pain/shortness of breath. Denies weakness. Denies headache. Denies vision changes. Denies fever/chills. Denies dysuria/diarrhea. Denies abdominal pain. She was recently seen here for sickle cell crisis and given dilaudid and benadryl. Past History - Past Medical History Allergies/Adverse Reactions: Allergies Allergy/AdvReac Type Severity Reaction Status Date / Time morphine Allergy Verified 04/11/19 02:46 Home Medications: Ambulatory Orders Apixaban [Eliquis] 10 mg BID 04/26/16 Folic Acid 1 mg PO DAILY 04/26/16 Hydroxyurea [Hydrea] 500 mg PO BID 04/26/16 Nadolol 40 mg PO DAILY 04/26/16 Oxycodone HCl 5 mg PO TID PRN 04/26/16 Anemia: Yes (sickle cell) Cardiac Disorders: Yes (RIGHT ATRIAL CLOT (RESOLVED)) COPD: No DVT: No GI Disorders: Yes (BENIGN LIVER CYST) HTN: Yes (Portal hypertension) Liver Disease: Yes (Cirrhosis) - Surgical History Abdominal Surgery: Yes (spleen) Appendectomy: Yes Cholecystectomy: Yes - Immunization History Immunization Up to Date: No - Psycho Social/Smoking Cessation Hx Smoking History: Never smoked Have you smoked in the past 12 months: No Information on smoking cessation initiated: No 'Breaking Loose' booklet given: 08/20/17 Hx Alcohol Use: No Drug/Substance Use Hx: No Substance Use Type: None Review of Systems - Review of Systems Comments:: GENERAL/CONSTITUTIONAL: No fever or chills. No weakness._ HEAD, EYES, EARS, NOSE AND THROAT: No change in vision. No change in hearing. No sore throat._ CARDIOVASCULAR: No chest pain or shortness of breath_ RESPIRATORY: Denies cough, hemoptysis_ GASTROINTESTINAL: No nausea, vomiting, diarrhea or constipation._ GENITOURINARY: No dysuria, frequency, or change in urination._ MUSCULOSKELETAL: Reports lower back pain and pain over posterior lower extremities. SKIN: No rash_ NEUROLOGIC: No headache, vertigo, loss of consciousness, or change in strength/ sensation._ ENDOCRINE: No increased thirst. No abnormal weight change_ HEMATOLOGIC/LYMPHATIC: No anemia, easy bleeding, or history of blood clots._ ALLERGIC/IMMUNOLOGIC: No hives or skin allergy._ *Physical Exam - Vital Signs Last Vital Signs Temp Pulse Resp BP Pulse Ox 98.0 F 74 18 105/60 98 04/11/19 02:46 04/11/19 02:46 04/11/19 02:46 04/11/19 02:46 04/11/19 02:46 - Physical Exam GENERAL: Awake, alert, and oriented to person/place/time, in no acute distress_ HEAD: No signs of trauma, normocephalic, atraumatic _ EYES: PERRLA, EOMI, sclera anicteric, conjunctiva clear_ ENT: Hearing grossly normal, nares patent, oropharynx clear without exudates. No uvular deviation. Moist mucosa_ NECK: Normal ROM, supple, no lymphadenopathy, JVD, or masses_ LUNGS: No distress, speaks in full sentences, clear to auscultation bilaterally _ HEART: Regular rate and rhythm, normal S1 and S2, no murmurs appreciated, peripheral pulses normal and equal bilaterally._ ABDOMEN: Soft, nontender, normoactive bowel sounds. No guarding, no rebound. No masses_ EXTREMITIES: Normal inspection, Normal range of motion, no edema. No clubbing or cyanosis_ NEUROLOGICAL: Cranial nerves II through XII grossly intact. Normal speech, normal gait, no focal sensorimotor deficits _ SKIN: Warm, Dry, normal turgor, no rashes or lesions noted_ ED Treatment Course - LABORATORY CBC & Chemistry Diagram: 04/11/19 07:20 04/11/19 07:20 Medical Decision Making - Medical Decision Making 04/11/19 04:00 28F hx of sickle cell disease presenting with lower back pain and lower extremity pain that started 2 days ago. -dilaudid 4 mg -benadryl 25 mg IV -retic count 04/11/19 04:59 Pt reassessed. Reports moderate improvement of pain. Will give additional 2 mg dilaudid. 04/11/19 05:13 Labs reviewed. Laboratory Last Values Retic Count 8.90 % (0.5-1.5) H D 04/11/19 04:16 04/11/19 06:13 Pt reassessed. Reports that she still has pain. Requesting another round of dilaudid. D/w pt that if she requires additional pain control she will need to be admitted. Pt elected for admission. 04/11/19 06:18 Will order cbc, cmp, ekg, cxr for admission. Discharge - Discharge Information Problems reviewed: Yes Clinical Impression/Diagnosis: Sickle cell pain crisis Condition: Stable - Admission Yes - Follow up/Referral - Patient Discharge Instructions - Post Discharge Activity
[2019-04-11] MEDS ORDERED: HYDROmorphone HCl 2 MG/ML VIAL ONE ×3 (03:55→07:42)
[2019-04-11] MEDS ORDERED: ONDANSETRON 4 MG/2 ML VIAL ONE (03:56)
[2019-04-11] MEDS ORDERED: SODIUM CHLORIDE 0.9% 500 ML INFUS.BAG IV ONE (04:37)
[2019-04-11] MEDS ORDERED: ONDANSETRON 4 MG/2 ML VIAL IVPUSH ONE (04:37)
[2019-04-11 07:58] LABS: HEMATOCRIT 24.9 % (32.4-45.2); HEMOGLOBIN 8.5 GM/dL (10.7-15.3); MCH 30.3 pg (25.7-33.7); MCHC 34.2 g/dl (32.0-36.0); MEAN CELL VOLUME 88.5 fl (80-96); MEAN PLT VOLUME 8.4 fl (7.5-11.1); PLATELET COUNT 186 K/MM3 (134-434); RBC 2.82 M/mm3 (3.60-5.2); RDW 20.5 % (11.6-15.6); WHITE BLOOD COUNT 9.2 K/mm3 (4.0-10.0)
[2019-04-11 08:18] LABS: ALBUMIN 3.4 g/dl (3.4-5.0); BILIRUBIN,TOTAL 2.2 mg/dL (0.2-1); BLOOD UREA NITROGEN 9.2 mg/dL (7-18); CALCIUM 8.1 mg/dL (8.5-10.1); CREATININE 0.6 mg/dL (0.55-1.3); POTASSIUM 4.3 mmol/L (3.5-5.1); TOT PROT 8.4 g/dl (6.4-8.2)
--- NOTE | 2019-04-11 08:26 | PDOC ---
*Physical Exam - Vital Signs Last Vital Signs Temp Pulse Resp BP Pulse Ox 98.0 F 73 20 112/85 97 04/11/19 02:46 04/11/19 06:51 04/11/19 06:51 04/11/19 06:51 04/11/19 06:51 ED Treatment Course - LABORATORY CBC & Chemistry Diagram: 04/11/19 07:20 04/11/19 07:20 - ADDITIONAL ORDERS Additional order review: Laboratory Results 04/11/19 07:20 Sodium 140 Potassium 4.3 Chloride 108 H Carbon Dioxide 25 Anion Gap 7 L BUN 9.2 Creatinine 0.6 Est GFR (CKD-EPI)AfAm 141.76 Est GFR (CKD-EPI)NonAf 122.31 Random Glucose 90 Calcium 8.1 L Total Bilirubin 2.2 H AST 60 H ALT 27 Alkaline Phosphatase 238 H Total Protein 8.4 H Albumin 3.4 04/11/19 07:20 RBC 2.82 L MCV 88.5 MCHC 34.2 RDW 20.5 H MPV 8.4 Neutrophils % No Result Required. Lymphocytes % No Result Required. - Medications Given in the ED: ED Medications Discontinued Medications Generic Name Dose Route Start Last Admin Trade Name Freq PRN Reason Stop Dose Admin Diphenhydramine HCl 50 mg 04/11/19 03:54 04/11/19 04:42 Benadryl Injection - IVPB 04/11/19 03:55 Not Given ONCE ONE Diphenhydramine HCl 25 mg 04/11/19 03:55 04/11/19 04:36 Benadryl Injection - IVPUSH 04/11/19 03:56 25 mg ONCE ONE Administration Diphenhydramine HCl 25 mg 04/11/19 05:08 04/11/19 05:16 Benadryl Injection - IVPUSH 04/11/19 05:09 25 mg ONCE ONE Administration Diphenhydramine HCl 50 mg 04/11/19 07:25 04/11/19 07:55 Benadryl Injection - IVPUSH 04/11/19 07:26 50 mg ONCE ONE Administration Hydromorphone HCl 4 mg 04/11/19 03:52 04/11/19 04:35 Dilaudid Injection - IVPUSH 04/11/19 03:53 4 mg ONCE ONE Administration Hydromorphone HCl 2 mg 04/11/19 04:59 04/11/19 05:16 Dilaudid Injection - IVPUSH 04/11/19 05:00 2 mg ONCE ONE Administration Hydromorphone HCl 2 mg 04/11/19 07:25 04/11/19 07:56 Dilaudid Injection - IVPUSH 04/11/19 07:26 2 mg ONCE ONE Administration Ondansetron HCl 4 mg 04/11/19 04:37 04/11/19 04:38 Zofran Injection IVPUSH 04/11/19 04:38 4 mg ONCE ONE Administration Sodium Chloride 1,000 ml 04/11/19 04:37 04/11/19 04:38 Normal Saline - IV 04/11/19 04:38 1,000 ml ONCE ONE Administration Medical Decision Making - Medical Decision Making Patient Signed out to me from the night team as a sickle cell pain crisis and pending admission as she is now requiring a 3rd round of pain meds. Patient persistently requesting pain meds - Hydromorphone and benadryl given Patient endorsed to hospitalist Dr. Farrell Discharge - Discharge Information Problems reviewed: Yes Clinical Impression/Diagnosis: Sickle cell pain crisis Condition: Stable - Admission Yes - Follow up/Referral - Patient Discharge Instructions - Post Discharge Activity
[2019-04-11] MEDS ORDERED: HYDROmorphone HCl 2 MG/ML VIAL IVPB PRN (08:59)
[2019-04-11] MEDS ORDERED: DEXTROSE 5%-WATER - 1,000 ML IV SCH (09:15)
[2019-04-11 09:23] LABS: ANISOCYTOSIS 3+; MACROCYTOSIS 1+; PLATELET ESTIMATE NORMAL; SICKELED CELLS 1+; TARGET CELLS 2+
[2019-04-11] MEDS ORDERED: HYDROmorphone HCL 2 MG TABLET PO PRN (11:36)
[2019-04-11] MEDS: HYDROmorphone HCl 2 MG/ML VIAL IVPB PRN ×4 (12:20→23:48)
--- NOTE | 2019-04-11 13:18 | EKG ---
Test Reason : Blood Pressure : / mmHG Vent. Rate : 073 BPM Atrial Rate : 073 BPM P-R Int : 182 ms QRS Dur : 088 ms QT Int : 404 ms P-R-T Axes : 021 053 050 degrees QTc Int : 445 ms NORMAL SINUS RHYTHM NORMAL ECG NO PREVIOUS ECGS AVAILABLE Confirmed by ESTEFANY PARK MD ([id number]) on 04/11/2019 1:17:56 PM Referred By: TIFFANY OLIVAREZ Confirmed By:ESTEFANY PARK MD
[2019-04-11] MEDS: ONDANSETRON 4 MG/2 ML VIAL IVPUSH PRN ×2 (15:35→23:49)
--- NOTE | 2019-04-11 17:19 | HP ---
CHIEF COMPLAINT: Severe body aches and pains PCP: HISTORY OF PRESENT ILLNESS:This is a 28 y/o female with hx of sickle cell disease, portal vein thrombosis, portal HTN, multiple atrial thromboses ( resolved), liver cirrhosis, multiple episodes of acute chest syndrome in the past, presenting today with lower back pain and lower extremity pain that started 2 days ago. Reports that this pain is similar to her previous sickle cell crises. Describes the pain as throbbing and intermittent. Denies chest pain/shortness of breath. Denies weakness. Denies headache. Denies vision changes. Denies fever/chills. Denies dysuria/diarrhea. Denies abdominal pain. She was recently seen here for sickle cell crisis and given dilaudid and benadryl. ER course was notable for:Severe pain and requesting lots of pain medication (1) (2) (3) Recent Travel:Denies PAST MEDICAL HISTORY: hx of sickle cell disease, portal vein thrombosis, portal HTN, multiple atrial thromboses (resolved), liver cirrhosis, multiple PAST SURGICAL HISTORY:Port-A-Cath Social History: Smoking:Denies Alcohol smoking drug use Alcohol: Drugs: Allergies morphine Allergy (Verified 04/11/19 02:46) HOME MEDICATIONS: Home Medications Medication Instructions Recorded Apixaban [Eliquis] 10 mg BID 04/26/16 Folic Acid 1 mg PO DAILY 04/26/16 Hydroxyurea [Hydrea] 500 mg PO BID 04/26/16 Nadolol 40 mg PO DAILY 04/26/16 Oxycodone HCl 5 mg PO TID PRN 04/26/16 REVIEW OF SYSTEMS CONSTITUTIONAL: Absent: fever, chills, diaphoresis, generalized weakness, malaise, loss of appetite, weight change HEENT: Absent: rhinorrhea, nasal congestion, throat pain, throat swelling, difficulty swallowing, mouth swelling, ear pain, eye pain, visual changes CARDIOVASCULAR: Absent: chest pain, syncope, palpitations, irregular heart rate, lightheadedness , peripheral edema RESPIRATORY: Absent: cough, shortness of breath, dyspnea with exertion, orthopnea, wheezing, stridor, hemoptysis GASTROINTESTINAL: Absent: abdominal pain, abdominal distension, nausea, vomiting, diarrhea, constipation, melena, hematochezia GENITOURINARY: Absent: dysuria, frequency, urgency, hesitancy, hematuria, flank pain, genital pain MUSCULOSKELETAL: Severe pain all over the body SKIN: Absent: rash, itching, pallor HEMATOLOGIC/IMMUNOLOGIC: Absent: easy bleeding, easy bruising, lymphadenopathy, frequent infections ENDOCRINE: Absent: unexplained weight gain, unexplained weight loss, heat intolerance, cold intolerance NEUROLOGIC: Absent: headache, focal weakness or paresthesias, dizziness, unsteady gait, seizure, mental status changes, bladder or bowel incontinence PSYCHIATRIC: Absent: anxiety, depression, suicidal or homicidal ideation, hallucinations. PHYSICAL EXAMINATION Vital Signs - 24 hr 04/11/19 04/11/19 04/11/19 02:46 06:51 07:10 Temperature 98.0 F Pulse Rate 74 Pulse Rate [ 73 Left] Respiratory 18 20 Rate Blood Pressure 105/60 Blood Pressure 112/85 [Left Arm] O2 Sat by Pulse 98 97 97 Oximetry (%) 04/11/19 04/11/19 10:52 11:40 Temperature 98 F Pulse Rate 85 Pulse Rate [ 84 Left] Respiratory 14 14 Rate Blood Pressure 134/64 Blood Pressure 121/80 [Left Arm] O2 Sat by Pulse 98 98 Oximetry (%) GENERAL: Awake, alert, and fully oriented, in no acute distress. HEAD: Normal with no signs of trauma. EYES: Pupils equal, round and reactive to light, extraocular movements intact, sclera anicteric, conjunctiva clear. No lid lag. EARS, NOSE, THROAT: Ears normal, nares patent, oropharynx clear without exudates. Moist mucous membranes. NECK: Normal range of motion, supple without lymphadenopathy, JVD, or masses. LUNGS: Breath sounds equal, clear to auscultation bilaterally. No wheezes, and no crackles. No accessory muscle use. HEART: Regular rate and rhythm, normal S1 and S2 without murmur, rub or gallop. ABDOMEN: Soft, nontender, not distended, normoactive bowel sounds, no guarding, no rebound, no masses. No hepatomegaly or splenomegaly. MUSCULOSKELETAL: Normal range of motion at all joints. No bony deformities or tenderness. No CVA tenderness. UPPER EXTREMITIES: 2+ pulses, warm, well-perfused. No cyanosis. No clubbing. No peripheral edema. LOWER EXTREMITIES: 2+ pulses, warm, well-perfused. No calf tenderness. No peripheral edema. NEUROLOGICAL: Cranial nerves II-XII intact. Normal speech. Normal gait. PSYCHIATRIC: Cooperative. Good eye contact. Appropriate mood and affect. SKIN: Warm, dry, normal turgor, no rashes or lesions noted, normal capillary refill. Laboratory Results - last 24 hr 04/11/19 04/11/19 04/11/19 04:16 07:20 07:20 WBC 9.2 RBC 2.82 L Hgb 8.5 L Hct 24.9 L MCV 88.5 MCH 30.3 MCHC 34.2 RDW 20.5 H Plt Count 186 D MPV 8.4 Neutrophils % No Result Required. Neutrophils % (Manual) 58.2 Band Neutrophils % 0.0 Lymphocytes % No Result Required. Lymphocytes % (Manual) 29.1 D Monocytes % (Manual) 6 Eosinophils % (Manual) 1.8 Basophils % (Manual) 1.8 D Myelocytes % (Man) 0 D Promyelocytes % (Man) 0 Blast Cells % (Manual) 0 Nucleated RBC % 3 H Metamyelocytes 0 Hypochromia 0 Platelet Estimate Normal Polychromasia 3+ Poikilocytosis 2+ Anisocytosis 3+ Microcytosis 2+ Macrocytosis 1+ Sickle Cells 1+ Target Cells 2+ Retic Count 8.90 H D Sodium 140 Potassium 4.3 Chloride 108 H Carbon Dioxide 25 Anion Gap 7 L BUN 9.2 Creatinine 0.6 Est GFR (CKD-EPI)AfAm 141.76 Est GFR (CKD-EPI)NonAf 122.31 Random Glucose 90 Calcium 8.1 L Total Bilirubin 2.2 H AST 60 H ALT 27 Alkaline Phosphatase 238 H Total Protein 8.4 H Albumin 3.4 ASSESSMENT/PLAN: 28-year-old female with chronic history of sickle cell disorder came to the ER with complaint of severe pain. Plan admit to the hospital started on IV Dilaudid and Benadryl and also she wants Zofran every 6 hourly. Will start IV fluids as well. History of DVT start Eliquis 5 mg twice daily Renew her medications. Elevated liver enzymes Will do hepatitis panel repeat labs and abdominal ultrasounds. Visit type - Emergency Visit Emergency Visit: Yes ED Registration Date: 04/11/19 Care time: The patient presented to the Emergency Department on the above date and was hospitalized for further evaluation of their emergent condition. - New Patient This patient is new to me today: Yes Date on this admission: 04/12/19 - Critical Care Critical Care patient: No
[2019-04-11] MEDS ORDERED: NADOLOL 40 MG TABLET (FP) PO SCH (18:53)
[2019-04-11] MEDS: APIXABAN 5 MG TABLET PO SCH (21:10)
[2019-04-11] MEDS: HYDROXYUREA 500 MG CAPSULE PO SCH (21:11)
[2019-04-11] MEDS ORDERED: APIXABAN 5 MG TABLET PO SCH (22:00)
[2019-04-12] MEDS: HYDROmorphone HCl 2 MG/ML VIAL IVPB PRN ×5 (03:45→19:28)
[2019-04-12] MEDS ORDERED: NADOLOL 20 MG TABLET (FP) ONE (09:51)
[2019-04-12] MEDS ORDERED: FOLIC ACID 1 MG TABLET (FP) PO SCH (10:00)
[2019-04-12] MEDS ORDERED: NADOLOL 40 MG TABLET (FP) PO SCH ×2 (10:00→22:00)
[2019-04-12] MEDS ORDERED: PT OWN MED DRAWER 7, Y5N ONE (10:10)
[2019-04-12] MEDS: FOLIC ACID 1 MG TABLET (FP) PO SCH (10:11)
[2019-04-12] MEDS: HYDROXYUREA 500 MG CAPSULE PO SCH ×2 (10:11→21:47)
[2019-04-12] MEDS: APIXABAN 5 MG TABLET PO SCH ×2 (10:11→21:46)
--- NOTE | 2019-04-12 10:29 | PN ---
Progress Note (short form) - Note Progress Note: I went to see herFor follow-up visit and then I asked her how she is doing. She started screaming and yelling at me that I did not treat her properly. I felt threatened by her I called security to stay by my side while examine her and talk to her.It was all witnessed by next-door patient and the nurse. She says she is better on the current treatment but she wanted Benadryl every 4 hourly I change the Benadryl to every 4 hourly. I also requested what else she would like to do so she said continue IV fluids and current dose of pain medication. I offered her that I should call hematology and pain management consult but she said no. Vital Signs Period Temp Pulse Resp BP Sys/Thompson Pulse Ox Last 24 Hr 98 F-98.4 F 60-85 14-18 105-139/61-80 98-98 She looks comfortable and walking ambulatory no other examination was done. CBC, BMP 04/11/19 07:20 04/11/19 07:20 Assessment and plan acute sickle cell crisis. She is improving According to her Will continue IV hydromorphone every 4 hourly, Benadryl 50 mg every 4 hourly I discussed with the pharmacy that maximum dose is 400 mg a day so she is going to get that. Also Zofran 4 mg IV p.o. every 6 hourly as needed. Will continue IV fluids at this time. Visit type - Emergency Visit Emergency Visit: Yes ED Registration Date: 04/11/19 Care time: The patient presented to the Emergency Department on the above date and was hospitalized for further evaluation of their emergent condition. - New Patient This patient is new to me today: No - Critical Care Critical Care patient: No - Discharge Referral Referred to [facility].C[facility] No
[2019-04-12] MEDS: DEXTROSE 5%-WATER - 1,000 ML IV SCH (15:27)
[2019-04-12] MEDS: ONDANSETRON 4 MG/2 ML VIAL IVPUSH PRN (19:30)
[2019-04-13] MEDS ORDERED: ALTEPLASE 2 MG VIAL IVPUSH ONE (00:03)
[2019-04-13] MEDS: HYDROmorphone HCl 2 MG/ML VIAL IVPB PRN ×5 (00:45→16:24)
[2019-04-13 06:45] VITALS: BP 115/67; PULSE 73; TEMP 97.4
--- NOTE | 2019-04-13 07:22 | PN ---
Physical Exam: SUBJECTIVE: Patient seen and examined OBJECTIVE: Vital Signs Period Temp Pulse Resp BP Sys/Thompson Pulse Ox Last 24 Hr 97.4 F-98.7 F 73-82 18-20 115-120/62-76 98-98 GENERAL: The patient is awake, alert, and fully oriented, in no acute distress. HEAD: Normal with no signs of trauma. EYES: PERRL, extraocular movements intact, sclera anicteric, conjunctiva clear. No ptosis. ENT: Ears normal, nares patent, oropharynx clear without exudates, moist mucous membranes. NECK: Trachea midline, full range of motion, supple. LUNGS: Breath sounds equal, clear to auscultation bilaterally, no wheezes, no crackles, no accessory muscle use. HEART: Regular rate and rhythm, S1, S2 without murmur, rub or gallop. ABDOMEN: Soft, nontender, nondistended, normoactive bowel sounds, no guarding, no rebound, no hepatosplenomegaly, no masses. EXTREMITIES: 2+ pulses, warm, well-perfused, no edema. NEUROLOGICAL: Cranial nerves II through XII grossly intact. Normal speech, gait not observed. PSYCH: Normal mood, normal affect. SKIN: Warm, dry, normal turgor, no rashes or lesions noted Active Medications Generic Name Dose Route Start Last Admin Trade Name Freq PRN Reason Stop Dose Admin Apixaban 5 mg 04/11/19 22:00 04/12/19 21:46 Eliquis - PO 5 mg BID EBONIE Administration Diphenhydramine HCl 50 mg 04/12/19 07:40 04/13/19 04:47 Benadryl Injection - IVPUSH 50 mg Q4H PRN Administration ALLERGIES Folic Acid 1 mg 04/11/19 18:53 04/12/19 10:11 Folic Acid - PO 1 mg DAILY EBONIE Administration Hydromorphone HCl 4 mg 04/11/19 11:48 04/13/19 04:46 Dilaudid Vial - IVPB 4 mg Q4H PRN Administration PAIN LEVEL 7 - 10 Hydroxyurea 500 mg 04/11/19 22:00 04/12/19 21:47 Hydrea - PO 500 mg BID EBONIE Administration Dextrose 1,000 mls @ 125 mls/hr 04/12/19 14:24 04/12/19 15:27 D5w - IV 125 mls/hr ASDIR EBONIE Administration Nadolol 40 mg 04/12/19 22:00 04/12/19 21:45 Corgard - PO 40 mg HS EBONIE Administration Ondansetron HCl 4 mg 04/11/19 11:38 04/12/19 19:30 Zofran Injection IVPUSH 4 mg Q6H PRN Administration NAUSEA ASSESSMENT/PLAN: ATTENDING PHYSICIAN STATEMENT I saw and evaluated the patient. I reviewed the resident's note and discussed the case with the resident. I agree with the resident's findings and plan as documented. SUBJECTIVE: OBJECTIVE: ASSESSMENT AND PLAN:
[2019-04-13 07:41] LABS: ALBUMIN 3.8 g/dl (3.4-5.0); BILIRUBIN,TOTAL 2.2 mg/dL (0.2-1); BLOOD UREA NITROGEN 11.5 mg/dL (7-18); CALCIUM 8.6 mg/dL (8.5-10.1); CREATININE 0.7 mg/dL (0.55-1.3); POTASSIUM 4.7 mmol/L (3.5-5.1); TOT PROT 8.7 g/dl (6.4-8.2)
--- NOTE | 2019-04-13 09:11 | PN ---
Teaching Attending Note Name of Resident: Damaso Villanueva ATTENDING PHYSICIAN STATEMENT I saw and evaluated the patient. I reviewed the resident's note and discussed the case with the resident. I agree with the resident's findings and plan as documented. SUBJECTIVE: OBJECTIVE: Vital Signs Period Temp Pulse Resp BP Sys/Thompson Pulse Ox Last 24 Hr 97.4 F-98.7 F 73-82 18-20 115-120/62-76 98 Laboratory Results - last 24 hr 04/13/19 06:30 Sodium 135 L Potassium 4.7 Chloride 100 Carbon Dioxide 31 Anion Gap 3 L BUN 11.5 Creatinine 0.7 Est GFR (CKD-EPI)AfAm 134.75 Est GFR (CKD-EPI)NonAf 116.26 Random Glucose 96 Calcium 8.6 Total Bilirubin 2.2 H AST 60 H ALT 30 Alkaline Phosphatase 255 H Total Protein 8.7 H Albumin 3.8 Current Medications Generic Name Dose Route Start Last Admin Trade Name Freq PRN Reason Stop Dose Admin Apixaban 5 mg 04/11/19 22:00 04/12/19 21:46 Eliquis - PO 5 mg BID EBONIE Administration Diphenhydramine HCl 50 mg 04/12/19 07:40 04/13/19 08:33 Benadryl Injection - IVPUSH 50 mg Q4H PRN Administration ALLERGIES Folic Acid 1 mg 04/11/19 18:53 04/12/19 10:11 Folic Acid - PO 1 mg DAILY EBONIE Administration Hydromorphone HCl 4 mg 04/11/19 11:48 04/13/19 08:33 Dilaudid Vial - IVPB 4 mg Q4H PRN Administration PAIN LEVEL 7 - 10 Hydroxyurea 500 mg 04/11/19 22:00 04/12/19 21:47 Hydrea - PO 500 mg BID EBONIE Administration Dextrose 1,000 mls @ 125 mls/hr 04/12/19 14:24 04/12/19 15:27 D5w - IV 125 mls/hr ASDIR EBONIE Administration Nadolol 40 mg 04/12/19 22:00 04/12/19 21:45 Corgard - PO 40 mg HS EBONIE Administration Ondansetron HCl 4 mg 04/11/19 11:38 04/12/19 19:30 Zofran Injection IVPUSH 4 mg Q6H PRN Administration NAUSEA ASSESSMENT AND PLAN: This is a 28 year old woman with a history of sickle cell disease, cirrhosis, portal vein thrombosis, portal HTN who presented to the ED with back and leg pain. 1. Sickle cell crisis 2. Anemia 3. Cirrhosis 4. History of portal vein thrombosis 5. Portal HTN 6. Obesity with BMI 37.2
[2019-04-13] MEDS ORDERED: PT OWN MED DRAWER 7, Y5N ONE (10:42)
[2019-04-13] MEDS: APIXABAN 5 MG TABLET PO SCH (10:49)
[2019-04-13] MEDS: FOLIC ACID 1 MG TABLET (FP) PO SCH (10:49)
[2019-04-13] MEDS: HYDROXYUREA 500 MG CAPSULE PO SCH (10:49)
--- NOTE | 2019-04-13 16:20 | DS ---
Physical Exam: SUBJECTIVE: Patient seen and examined at bed side , she is stable to dc home OBJECTIVE: Vital Signs Period Temp Pulse Resp BP Sys/Thompson Pulse Ox Last 24 Hr 97.4 F-98.7 F 73-77 18-20 115-117/62-67 98 PHYSICAL EXAM GENERAL: The patient is awake, alert, and fully oriented, in no acute distress. HEAD: Normal with no signs of trauma. EYES: PERRL, extraocular movements intact, ENT: moist mucous membranes. LUNGS: Breath sounds equal, clear to auscultation bilaterally, no wheezes, no crackles, no accessory muscle use. port on tight upper chest HEART: Regular rate and rhythm, S1, S2 without murmur, rub or gallop. ABDOMEN:Obese , Soft, nontender, nondistended, normoactive bowel sounds, EXTREMITIES: 2+ pulses, warm, well-perfused, no edema. NEUROLOGICAL: Cranial nerves II through XII grossly intact. Normal speech, normal gait PSYCH: Normal mood, normal affect. SKIN: Warm, dry, LABS Laboratory Results - last 24 hr 04/13/19 06:30 Sodium 135 L Potassium 4.7 Chloride 100 Carbon Dioxide 31 Anion Gap 3 L BUN 11.5 Creatinine 0.7 Est GFR (CKD-EPI)AfAm 134.75 Est GFR (CKD-EPI)NonAf 116.26 Random Glucose 96 Calcium 8.6 Total Bilirubin 2.2 H AST 60 H ALT 30 Alkaline Phosphatase 255 H Total Protein 8.7 H Albumin 3.8 CBC, BMP 04/11/19 07:20 04/13/19 06:30 HOSPITAL COURSE: Date of Admission:04/11/19 Date of Discharge: 04/13/19 pt presented to the hospital with sickle crises ashly and was treated with iv fluids , pain medication , her symptoms has improved and will be dc home with close follow up with her curriculum development coordinator within one week , pt reports she has an appointment with her curriculum development coordinator Dr Almaraz on April 21 and pt informed to repeat cbc and reticulocytes count in one week. pt is stable to discharged home. Minutes to complete discharge: 50 Discharge Summary Problems reviewed: Yes Reason For Visit: SICKLE CELL DISEASE Current Active Problems Sickle cell anemia (Chronic) Condition: Stable - Instructions Diet, Activity, Other Instructions: you presented to the hospital due to sever pain due to sickle cell disease . you are treated with fluids , pain medications and you improved and will be discharged home Please follow up with your curriculum development coordinator DR Méndez within one week please call and schedule an appointment Please resume all your home medication as before admission If you develop fever , chills, chest pain or sever pain in back or head please return to emergency room Referrals: Ebony Pavon [Non Staff, Medical] - 1 Week Disposition: HOME - Home Medications Comprehensive Discharge Medication List: Ambulatory Orders Folic Acid 1 mg PO DAILY 04/26/16 Hydroxyurea [Hydrea] 500 mg PO BID 04/26/16 Nadolol 40 mg PO DAILY 04/26/16 Apixaban [Eliquis] 5 mg PO BID 04/13/19 Oxycodone HCl 30 mg PO TID 04/13/19 This patient is new to me today: Yes Date on this admission: 04/13/19 Emergency Visit: Yes ED Registration Date: 04/11/19 Care time: The patient presented to the Emergency Department on the above date and was hospitalized for further evaluation of their emergent condition. Critical Care patient: No - Discharge Referral Referred to [facility] No ATTENDING PHYSICIAN STATEMENT I saw and evaluated the patient. I reviewed the resident's note and discussed the case with the resident. I agree with the resident's findings and plan as documented. SUBJECTIVE: OBJECTIVE: ASSESSMENT AND PLAN:
[2019-04-13] MEDS: DEXTROSE 5%-WATER - 1,000 ML IV SCH (18:08)
== END 2019-04-13 18:08 | disposition home or self-care (01) | DRG 812 ==
LOC: JER 02:34 → JERBED 07:54 → J6S 11:19
PROVIDERS: ADMIT Internal Medicine; ATTEND Internal Medicine
DX: D57.00 Hb-SS disease with crisis, unspecified (principal); K76.6 Portal hypertension; R79.89 Other specified abnormal findings of blood chemistry; K74.60 Unspecified cirrhosis of liver; K76.89 Other specified diseases of liver; D64.9 Anemia, unspecified; E66.9 Obesity, unspecified; Z68.37 Body mass index [BMI] 37.0-37.9, adult
CPT/HCPCS: 36415; 71045-TC-FY; 76700-TC; 80053; 80074; 85025; 85044; 93005; 93010; 99285-25; J2997; J8999

== ENCOUNTER 2019-08-13 00:11 | Emergency (ER) | payer OTHER ==
[2019-08-13 00:39] VITALS: BP 104/62; PULSE 108; TEMP 98.5; BMI 37.9
--- NOTE | 2019-08-13 00:41 | PDOC ---
History of Present Illness - General Chief Complaint: Sickle Cell Crisis Stated Complaint: SICKLE CELL CRISIS Time Seen by Provider: 08/13/19 00:40 History Source: Patient - History of Present Illness Initial Comments: 08/13/19 01:03 29F w/hx cirrhosis, sickle cell disease p/w 4 days of worsening pain. She reports pain in her arms, back, and legs similar to prior sickle cell crises. She denies any chest pain, sob, vision changes, nausea, vomiting, or headache. She follows with pain management ( ). She reports finishing packing today as she is moving to [place], Past History - Medical History Allergies/Adverse Reactions: Allergies Allergy/AdvReac Type Severity Reaction Status Date / Time morphine Allergy Verified 08/13/19 00:39 Home Medications: Ambulatory Orders Folic Acid 1 mg PO DAILY 04/26/16 Hydroxyurea [Hydrea] 500 mg PO BID 04/26/16 Nadolol 40 mg PO DAILY 04/26/16 Apixaban [Eliquis] 5 mg PO BID 04/13/19 Oxycodone HCl 30 mg PO TID 04/13/19 Anemia: Yes (sickle cell) Asthma: No Cancer: No Cardiac Disorders: Yes (RIGHT ATRIAL CLOT (RESOLVED)) CVA: No COPD: No CHF: No DVT: No Diabetes: No GI Disorders: Yes (BENIGN LIVER CYST) Disorders: No HTN: Yes (Portal hypertension) Hypercholesterolemia: No Liver Disease: Yes (Cirrhosis) Seizures: No Thyroid Disease: No - Surgical History Abdominal Surgery: Yes (spleen) Appendectomy: Yes Cardiac Surgery: No Cholecystectomy: Yes Lung Surgery: No Neurologic Surgery: No Orthopedic Surgery: No - Immunization History Immunization Up to Date: No - Psycho-Social/Smoking History Smoking History: Never smoked Have you smoked in the past 12 months: No 'Breaking Loose' booklet given: 08/20/17 - Substance Abuse Hx (Audit-C & DAST Scrn) How often the patient has a drink containing alcohol: Monthly or less Number of drinks the patient has on a typical day: 1 or 2 How often the patient has six or more drinks on one occasion: Less than monthly Score: In Men: 4 or > Positive; In Women: 3 or > Positive: 2 Screen Result (Pos requires Nsg. Audit-10AR): Negative In the last yr the pt used illegal drug/Rx for NonMed reason: No Score: Yes response is considered Positive: 0 Screen Result (Positive result requires Nsg. DAST-10): Negative *Physical Exam - Vital Signs Last Vital Signs Temp Pulse Resp BP Pulse Ox 98.5 F 108 H 18 104/62 97 08/13/19 00:37 08/13/19 00:37 08/13/19 00:37 08/13/19 00:37 08/13/19 00:37 ED Treatment Course - LABORATORY CBC & Chemistry Diagram: 08/13/19 00:17 08/13/19 00:17 Medical Decision Making - Medical Decision Making 08/13/19 02:02 second round - dilaudid 6 benadryl 25 dc Discharge - Discharge Information Problems reviewed: Yes Clinical Impression/Diagnosis: Sickle cell crisis Condition: Stable Disposition: HOME - Admission No - Follow up/Referral - Patient Discharge Instructions Patient Printed Discharge Instructions: DI for Sickle Cell Anemia, Pain Crisis -- Adult Additional Instructions: You were seen in the ER for sickle cell crisis pain. Your bloodwork was normal. Your pain was controlled with medication. Please be sure to follow up with your primary care provider and paint prep technician as soon as possible, in the next 2-3 days. Return to the ER if you develop chest pain, difficulty breathing, weakness, vision changes, confusion. - Post Discharge Activity
[2019-08-13] MEDS ORDERED: HYDROmorphone HCL CARPU-JECT 2 MG/1 ML DISP.SYRIN IVPUSH ONE ×2 (00:52→02:53)
[2019-08-13] MEDS ORDERED: LACTATED RINGERS SOLUTION 1000 ML INFUS.BAG IV ONE (00:53)
[2019-08-13] MEDS ORDERED: HYDROmorphone HCl 2 MG/ML VIAL ONE ×2 (00:58→03:19)
[2019-08-13] MEDS ORDERED: ONDANSETRON 4 MG/2 ML VIAL IVPUSH ONE (01:07)
--- NOTE | 2019-08-13 01:14 | PDOC ---
Documentation entered by Diego Chamorro SCRIBE, acting as scribe for Margy Taveras DO. Margy Taveras DO: This documentation has been prepared by the Ashtyn bell Xhesika, SCRIBE, under my direction and personally reviewed by me in its entirety. I confirm that the documentation accurately reflects all work, treatment, procedures, and medical decision making performed by me. Attending Attestation - Resident Resident Name: Khanh Paez - ED Attending Attestation I have performed the following: I have examined & evaluated the patient, The case was reviewed & discussed with the resident, I agree w/resident's findings & plan, Exceptions are as noted - HPI HPI: 08/13/19 00:51 The patient is a 29y/o F with a PMH of sickle cell disease, portal vein thrombosis, and liver disease/cirrhosis who presents to the ED with 3 days of back pain, shoulder pain and BLE pain. Pt states these symptoms are similar to her previous sickle cell crisis. Denies any infectious complaints. Denies CP or SOB. Denies numbness or weakness in extremities. Allergies: Morphine PSH: Splenectomy, appendectomy, Cholecystectomy PCP/Fuel Buyer: At [facility] - Physicial Exam PE: 08/13/19 01:02 GENERAL: Awake, alert, and fully oriented, + appears uncomfortable HEAD: No signs of trauma EYES: PERRLA, EOMI, sclera anicteric, conjunctiva clear NECK: Normal ROM, supple, no lymphadenopathy, JVD, or masses LUNGS: Breath sounds equal, clear to auscultation bilaterally. No wheezes, and no crackles HEART: +tachy, normal S1 and S2, no murmurs, rubs or gallops CHEST: +R port ABDOMEN: Soft, nontender, normoactive bowel sounds. No guarding, no rebound. No masses BACK: +diffuse tenderness EXTREMITIES:+tenderness to bilateral medial knees. Normal range of motion. NEUROLOGICAL: Cranial nerves II through XII grossly intact. SKIN: Warm, Dry, normal turgor, no rashes lesions noted. - Medical Decision Making 08/13/19 01:10 I, Dr. Margy Taveras DO, attest that this document has been prepared under my direction and personally reviewed by me in its entirety. I further attest, that it accurately reflects all work, treatment, procedures and medical decision-making performed by me. a/p: 29yo female with hx of scd with her chronic back and knee pain -hx of portal vein thrombosis on -pt moving to [place] this week, has follow up appt with [facility] in 2 weeks -states she always gets 6mg dilaudid and 50mg benadryl iv -pt denies new symptoms, states with the moving, going up and down 5 flight of stairs and it being hot out she feels dehydrated, also had n/v on saturday -states pain started saturday -follows with [facility] -will medicate, check sickle cell labs, monitor and reassess -pt ambulatory in the Er with a steady gait -will monitor and reassess 08/13/19 01:41 labs pending 08/13/19 02:01 retic 6 hgb 8 chem pending 08/13/19 02:02 labs pending, poss repeat dose of iv meds if 2nd round needed if still pain after 2nd round then will need admission for pain control Discharge - Discharge Information Problems reviewed: Yes Clinical Impression/Diagnosis: Sickle cell crisis Condition: Stable - Admission No - Follow up/Referral - Patient Discharge Instructions - Post Discharge Activity
[2019-08-13 01:45] LABS: HEMATOCRIT 26.1 % (32.4-45.2); HEMOGLOBIN 8.8 GM/dL (10.7-15.3); MCH 30.1 pg (25.7-33.7); MCHC 33.6 g/dl (32.0-36.0); MEAN CELL VOLUME 89.6 fl (80-96); PLATELET COUNT 252 K/MM3 (134-434); RBC 2.91 M/mm3 (3.60-5.2); RDW 19.8 % (11.6-15.6); WHITE BLOOD COUNT 8.6 K/mm3 (4.0-10.0)
[2019-08-13 01:58] LABS: RETICULOCYTES 6.68 % (0.5-1.5)
[2019-08-13 02:05] LABS: ALBUMIN 3.6 g/dl (3.4-5.0); ALK PHOS 203 U/L (45-117); ANION GAP 8 MMOL/L (8-16); BLOOD UREA NITROGEN 7.1 mg/dL (7-18); CALCIUM 8.2 mg/dL (8.5-10.1); CHLORIDE 108 mmol/L (98-107); CO2 24 mmol/L (21-32); CREATININE 0.7 mg/dL (0.55-1.3); GLUCOSE,RANDOM 97 mg/dL (74-106); POTASSIUM 3.5 mmol/L (3.5-5.1); SGOT/AST 61 U/L (15-37); SGPT/ALT 31 U/L (13-61); SODIUM 141 mmol/L (136-145); TOT PROT 8.4 g/dl (6.4-8.2)
[2019-08-13] MEDS ORDERED: HYDROmorphone HCL 2 MG TABLET ONE (03:18)
[2019-08-13 03:27] LABS: ANISOCYTOSIS 3+; MACROCYTOSIS 2+; PLATELET ESTIMATE NORMAL; TARGET CELLS 2+
== END 2019-08-13 04:01 | disposition home or self-care (01) ==
LOC: JER 00:11
PROC: 3E033GC Introduction of Other Therapeutic Substance into Peripheral Vein, Percutaneous Approach (ICD-10-PCS; principal; 2019-08-13)
DX: D57.00 Hb-SS disease with crisis, unspecified (principal)
CPT/HCPCS: 36415; 80053; 84484; 84703; 85025; 85044; 99284-25

== ENCOUNTER 2019-08-30 04:54 | Emergency (ER) | payer OTHER ==
[2019-08-30 05:06] VITALS: BMI 38.0
--- NOTE | 2019-08-30 05:28 | PDOC ---
History of Present Illness - General Chief Complaint: Sickle Cell Crisis Stated Complaint: PAIN History Source: Patient Exam Limitations: No Limitations - History of Present Illness Initial Comments: 08/30/19 05:18 HPI: 29yo F PMH of SCD, Portal Vein Thrombosis, Portal HTN, Cirrhosis, Atrial Thromboses presenting to the ER for sickle cell crisis. Patient reports she developed left chest wall pain and left back pain on Saturday, it worsened following an endoscopy on Saturday. Pain is similar to prior sickle cell pains. She reports having bad veins from all her prior crises and has a right chest mediport. Reports she always gets 6mg Dilaudid, 50 Benadryl each x2 for her pain. 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 Denies nausea, vomiting, SOB, fever, chills, sick contacts, injury, fall, abdominal pain, dysuria, cough, congestion. Follows at [place]. All: Morphine > Itch all over Meds: Oxycodone PMH: As above PSH: Mediport R chest Past History - Travel History Traveled outside of the country in the last 30 days: No Close contact w/someone who was outside of country & ill: No - Medical History Allergies/Adverse Reactions: Allergies Allergy/AdvReac Type Severity Reaction Status Date / Time morphine Allergy Verified 08/30/19 05:02 Home Medications: Ambulatory Orders Folic Acid 1 mg PO DAILY 04/26/16 Hydroxyurea [Hydrea] 500 mg PO BID 04/26/16 Nadolol 40 mg PO DAILY 04/26/16 Apixaban [Eliquis] 5 mg PO BID 04/13/19 oxyCODONE HCL [Oxycodone HCl] 30 mg PO TID 04/13/19 Anemia: Yes (sickle cell) Asthma: No Cancer: No Cardiac Disorders: Yes (RIGHT ATRIAL CLOT (RESOLVED)) CVA: No COPD: No CHF: No DVT: No Diabetes: No GI Disorders: Yes (BENIGN LIVER CYST) Disorders: No HTN: Yes (Portal hypertension) Hypercholesterolemia: No Liver Disease: Yes (Cirrhosis) Seizures: No Thyroid Disease: No - Surgical History Abdominal Surgery: Yes (spleen) Appendectomy: Yes Cardiac Surgery: No Cholecystectomy: Yes Lung Surgery: No Neurologic Surgery: No Orthopedic Surgery: No - Immunization History Immunization Up to Date: No - Psycho-Social/Smoking History Smoking History: Never smoked Have you smoked in the past 12 months: No Information on smoking cessation initiated: No 'Breaking Loose' booklet given: 08/20/17 - Substance Abuse Hx (Audit-C & DAST Scrn) How often the patient has a drink containing alcohol: Never Score: In Men: 4 or > Positive; In Women: 3 or > Positive: 0 Screen Result (Pos requires Nsg. Audit-10AR): Negative In the last yr the pt used illegal drug/Rx for NonMed reason: No Score: Yes response is considered Positive: 0 Screen Result (Positive result requires Nsg. DAST-10): Negative Review of Systems - Review of Systems Able to Perform ROS?: Yes Is the patient limited Danish proficient: Yes Constitutional: No: Chills, Diaphoresis, Fever HEENTM: No: Nose Pain, Throat Pain, Throat Swelling Respiratory: No: Cough, Shortness of Breath, Wheezing Cardiac (ROS): Yes: Chest Pain. No: Edema, Irregular Heart Rate, Lightheadedness, Palpitations, Syncope, Chest Tightness ABD/GI: No: Constipated, Diarrhea, Nausea, Vomiting : No: Burning, Dysuria, Frequency Musculoskeletal: Yes: Muscle Pain. No: Back Pain, Muscle Weakness Integumentary: No: Bruising, Pruritus, Rash Neurological: No: Headache, Numbness, Tingling, Weakness Psychiatric: No: Stressors, Change in Appetite Endocrine: No: Increased Thirst, Increased Urine Hematologic/Lymphatic: No: Anemia, Blood Clots, Easy Bleeding All Other Systems: Reviewed and Negative *Physical Exam - Vital Signs Last Vital Signs Temp Pulse Resp BP Pulse Ox 98.9 F 81 20 106/77 98 08/30/19 04:57 08/30/19 04:57 08/30/19 04:57 08/30/19 04:57 08/30/19 04:57 - Physical Exam 08/30/19 05:51 Vitals reviewed, AFVSS GEN: Well appearing, tearful, appears stated age, NAD. AAOx3. HEENT: NCAT, EOMI, PERRL. Sclera anicteric, noninjected. No facial asymmetry. Moist mucous membranes. Normal voice. Trachea midline. CV: RRR, S1/S2, no murmurs / rubs / gallops appreciated. Chest wall non-tender. LUNG: CTABL, normal work of breathing. No wheezes, rales, rhonchi. No cough. Speaking full sentences. GI: Soft, NTND, +BS, no guarding, no rebound. No masses. EXTREMITIES: 2+ distal pulses. No clubbing / cyanosis / edema. No gross deformity in any extremity. SKIN: Warm, dry, no rashes appreciated, non-jaundiced. PSYCH: Normal mood and affect. Cooperative and appropriate. NEURO: CN grossly intact. Moving all extremities well. Normal strength and sensation grossly. ED Treatment Course - LABORATORY CBC & Chemistry Diagram: 08/30/19 08:10 08/30/19 08:10 Medical Decision Making - Medical Decision Making 08/30/19 05:28 29yo F PMH of SCD, Portal Vein Thrombosis, Portal HTN, Cirrhosis, Atrial Thromboses presenting to the ER for sickle cell crisis. History notable for multiple pain crisis. Exam notable for stable vitals with normal HR, borderline low BP, tearful intermittently during encounter. - Access via R chest port - CBC, CMP, Cardiac Profile, PT/PTT - 4mg Dilaudid, 50 Benadryl 08/30/19 07:00 Endorsed to day team Discharge - Discharge Information Problems reviewed: Yes Clinical Impression/Diagnosis: Sickle cell crisis Condition: Stable Disposition: HOME - Follow up/Referral Referrals: [facility] [place] [facility] at [place] [Provider Group] - Patient Discharge Instructions Patient Printed Discharge Instructions: DI for Sickle Cell Anemia, Pain Crisis -- Adult Additional Instructions: Please make a follow up appointment with your primary care doctor (referral provided here). Please continue taking any medications as prescribed. If you experience any new, worsening, or concerning symptoms including worsening chest pain, difficulty breathing, weakness, numbness, tingling, slurred speech, or any other concerns, please return to the emergency department. - Post Discharge Activity
[2019-08-30] MEDS ORDERED: HYDROmorphone HCL CARPU-JECT 2 MG/1 ML DISP.SYRIN IVPUSH ONE ×3 (05:46→09:59)
[2019-08-30] MEDS ORDERED: HYDROmorphone HCl 2 MG/ML VIAL ONE ×3 (05:50→09:56)
--- NOTE | 2019-08-30 06:01 | PDOC ---
Attending Attestation - Resident Resident Name: Shoaib Jackson - ED Attending Attestation I have performed the following: I have examined & evaluated the patient, The case was reviewed & discussed with the resident, I agree w/resident's findings & plan - HPI HPI: 08/31/19 00:26 Pt comes with sickle cell disease crisis. She has had this many times in the past. She has miranda treated in our ER manytimes recently; consistently with elevated retic counts. As such we will not check labs today. - Physicial Exam PE: 08/31/19 00:27 Agree with resident exam. Pt has a port in her right ACW afebrile Pt has rib pain beneath the left breast area. No other joint or bone pains - Medical Decision Making 08/30/19 06:39 Pt will be signed out to the day ER team Discharge - Discharge Information Problems reviewed: Yes Clinical Impression/Diagnosis: Sickle cell crisis Condition: Stable Disposition: HOME - Follow up/Referral Referrals: [facility] [place] [Provider Group] - Patient Discharge Instructions Patient Printed Discharge Instructions: DI for Sickle Cell Anemia, Pain Crisis -- Adult Additional Instructions: Please make a follow up appointment with your primary care doctor (referral provided here). Please continue taking any medications as prescribed. If you experience any new, worsening, or concerning symptoms including worsening chest pain, difficulty breathing, weakness, numbness, tingling, slurred speech, or any other concerns, please return to the emergency department. - Post Discharge Activity
--- NOTE | 2019-08-30 07:09 | PDOC ---
*Physical Exam - Vital Signs Last Vital Signs Temp Pulse Resp BP Pulse Ox 98.2 F 73 19 117/76 100 08/30/19 05:35 08/30/19 05:35 08/30/19 05:35 08/30/19 05:35 08/30/19 05:35 ED Treatment Course - LABORATORY CBC & Chemistry Diagram: 08/30/19 08:10 08/30/19 08:10 - Medications Given in the ED: ED Medications Discontinued Medications Generic Name Dose Route Start Last Admin Trade Name Elvis PRN Reason Stop Dose Admin Diphenhydramine HCl 50 mg 08/30/19 05:46 08/30/19 06:49 Benadryl Injection - IVPUSH 08/30/19 05:47 50 mg ONCE ONE Administration Hydromorphone HCl 4 mg 08/30/19 05:46 08/30/19 06:49 Dilaudid Injection - IVPUSH 08/30/19 05:47 4 mg ONCE ONE Administration Medical Decision Making - Medical Decision Making 08/30/19 07:09 Pt received on s/o from Dr. Jackson. 29F with sickle cell disease presenting with left chest wall pain and left back pain since Saturday. Pain similar to prior sickle cell pain episodes. Will obtain EKG, CXR, labs, direct bili, retic count. ED course: 1st round pain mgmt dilaudid 4 mg, benadryl 50 mg 08/30/19 07:34 EKG shows 78 bpm, NSR, no axis deviation, no ST elevation, QTc 458. 08/30/19 07:38 CXR negative for acute chest pathology. Does not appear to show obvious signs of acute chest syndrome. 08/30/19 08:28 Pain mgmt 2nd round of dilaudid 6 mg. 08/30/19 09:58 Labs reviewed. Laboratory Last Values WBC 7.6 K/mm3 (4.0-10.0) 08/30/19 08:10 RBC 2.87 M/mm3 (3.60-5.2) L 08/30/19 08:10 Hgb 8.8 GM/dL (10.7-15.3) L 08/30/19 08:10 Hct 25.7 % (32.4-45.2) L 08/30/19 08:10 MCV 89.7 fl (80-96) 08/30/19 08:10 MCH 30.7 pg (25.7-33.7) 08/30/19 08:10 MCHC 34.2 g/dl (32.0-36.0) 08/30/19 08:10 RDW 20.2 % (11.6-15.6) H 08/30/19 08:10 Plt Count 221 K/MM3 (134-434) 08/30/19 08:10 MPV 7.5 fl (7.5-11.1) 08/30/19 08:10 Neutrophils % No Result Required. 08/30/19 08:10 Lymphocytes % No Result Required. 08/30/19 08:10 Nucleated RBC % 1 % (0-0) H 08/30/19 08:10 Retic Count 7.26 % (0.5-1.5) H 08/30/19 08:10 Sodium 138 mmol/L (136-145) 08/30/19 08:10 Potassium 4.5 mmol/L (3.5-5.1) 08/30/19 08:10 Chloride 105 mmol/L (98-107) 08/30/19 08:10 Carbon Dioxide 26 mmol/L (21-32) 08/30/19 08:10 Anion Gap 7 MMOL/L (8-16) L 08/30/19 08:10 BUN 9.2 mg/dL (7-18) 08/30/19 08:10 Creatinine 0.7 mg/dL (0.55-1.3) 08/30/19 08:10 Est GFR (CKD-EPI)AfAm 133.81 08/30/19 08:10 Est GFR (CKD-EPI)NonAf 115.45 08/30/19 08:10 Random Glucose 100 mg/dL (74-106) 08/30/19 08:10 Calcium 8.3 mg/dL (8.5-10.1) L 08/30/19 08:10 Total Bilirubin 2.0 mg/dL (0.2-1) H 08/30/19 08:10 Direct Bilirubin 0.7 mg/dL (0.0-0.2) H 08/30/19 08:10 AST 67 U/L (15-37) H 08/30/19 08:10 ALT 34 U/L (13-61) 08/30/19 08:10 Alkaline Phosphatase 204 U/L (45-117) H 08/30/19 08:10 Total Protein 8.4 g/dl (6.4-8.2) H 08/30/19 08:10 Albumin 3.5 g/dl (3.4-5.0) 08/30/19 08:10 Pt reassessed. Reports moderate improvement of pain from 11/20 to 08/20. Will gi ve final round of dilaudid and benadryl. 08/30/19 10:[address] Loomis (radiology). Vertebral compressions are known sequelae of sickle cell disease. 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 Pt also had a CT of the chest done three days ago with [facility]. Pt reassessed. Reports improvement of pain. Plan to d/c home with PCP and hematology f/u. All questions answered. Return precautions given. Pt verbalized understanding and agreement with plan. Discharge - Discharge Information Problems reviewed: Yes Clinical Impression/Diagnosis: Sickle cell crisis Condition: Stable Disposition: HOME - Admission No - Follow up/Referral Referrals: [facility] [place] [Provider Group] - Patient Discharge Instructions Patient Printed Discharge Instructions: DI for Sickle Cell Anemia, Pain Crisis -- Adult Additional Instructions: Please make a follow up appointment with your primary care doctor (referral provided here). Please continue taking any medications as prescribed. If you experience any new, worsening, or concerning symptoms including worsening chest pain, difficulty breathing, weakness, numbness, tingling, slurred speech, or any other concerns, please return to the emergency department. - Post Discharge Activity
--- NOTE | 2019-08-30 07:19 | PDOC ---
*Physical Exam - Vital Signs Last Vital Signs Temp Pulse Resp BP Pulse Ox 98.2 F 73 19 117/76 100 08/30/19 05:35 08/30/19 05:35 08/30/19 05:35 08/30/19 05:35 08/30/19 05:35 - Physical Exam 08/30/19 07:13 Patient's care endorsed to me by Dr. Hernandez at change of shift. Patient is a 29 YOF afflicted with SCD who p/w pain, has received one dose of pain medication at this point, will w/u and tx and re-assess prior to deciding dispo. ED Treatment Course - LABORATORY CBC & Chemistry Diagram: 08/30/19 08:10 08/30/19 08:10 - Medications Given in the ED: ED Medications Discontinued Medications Generic Name Dose Route Start Last Admin Trade Name Elvis PRN Reason Stop Dose Admin Diphenhydramine HCl 50 mg 08/30/19 05:46 08/30/19 06:49 Benadryl Injection - IVPUSH 08/30/19 05:47 50 mg ONCE ONE Administration Hydromorphone HCl 4 mg 08/30/19 05:46 08/30/19 06:49 Dilaudid Injection - IVPUSH 08/30/19 05:47 4 mg ONCE ONE Administration Medical Decision Making - Medical Decision Making 08/30/19 07:17 29YOF Pt with sickle cell disease p/w left rib pain which she states is same as her prior SCD-related pain crises. Pt is SS type SCD complications and on hydroxyurea at home, states she takes it as prescribed. Initial Vital Signs Temp Pulse Resp BP Pulse Ox 98.9 F 81 20 106/77 98 08/30/19 04:57 08/30/19 04:57 08/30/19 04:57 08/30/19 04:57 08/30/19 04:57 DDX IBNLT: most likely acute pain crisis but as always on the ddx for patients with SCD will consider acute chest syndrome, splenic sequestration crisis, apl astic crisis, stroke, sepsis (encapsulated organisms, sources meningitis/osteomyelitis/PNA/leg ulcers/UTI, post-splenectomy sepsis syndrome, etc), bilirubin cholelithiasis (from increased hemolysis), osteonecrosis, vasoocclusive pain crisis W/U ordered: Labs as noted below, CXR EKG TX ordered: IVF, Dilaudid, Benadryl Patient requesting 6 mg Dilaudid as she notes this is her normal ED dose, reques ts also another 50 mg Benadryl IV push. I let her know we can give 6 mg Dilaudid 2 hours after first dose (which was approximately 6 am). However I let her know we cannot do IV push Benadryl, and cannot re-dose so soon. I let her know that at 10 am we can give Benadryl IVPB - she does become upset a nd requests IV push which I state we cannot do. EKG: Reviewed; results as noted in ECG Review section. Laboratory Tests 08/30/19 08/30/19 08:10 08:10 WBC 7.6 RBC 2.87 L Hgb 8.8 L Hct 25.7 L MCV 89.7 MCH 30.7 MCHC 34.2 RDW 20.2 H Plt Count 221 MPV 7.5 Neutrophils % No Result Required. Lymphocytes % No Result Required. Nucleated RBC % 1 H Retic Count 7.26 H Sodium 138 Potassium 4.5 Chloride 105 Carbon Dioxide 26 Anion Gap 7 L BUN 9.2 Creatinine 0.7 Est GFR (CKD-EPI)AfAm 133.81 Est GFR (CKD-EPI)NonAf 115.45 Random Glucose 100 Calcium 8.3 L Total Bilirubin 2.0 H Direct Bilirubin 0.7 H AST 67 H ALT 34 Alkaline Phosphatase 204 H Total Protein 8.4 H Albumin 3.5 Labs are essentially per baseline for the patient's ED visits for acute pain crisis related to SCD. She notes her pain course has been the same as her normal CSD-related pain crises. Patient noted walking in the ED to find RN/MD and request the pain med orders, splinting left lower ribs. CXR report noting biconcave vertebrae and possible chronic bone disease versus c ompression fractures. With SCD the jolly log vertebrae are expected and this is no different from prior XR for the patient. Patient states she is feeling much better after third dose medications. This Pt has gotten significant relief of symptoms while in the ED. On last reassessment, vitals are wnl, pain is reasonably controlled, and exam is benign. Workup is not concerning for emergency-level pathology at this time. This Pt is appropriate for discharge with close outpatient follow up. She is instructed to follow up with PCP in 1-3 days, stay well hydrated, take home meds exactly as prescribed, also discuss all preventative care for SCD management with PCP. Specific return precautions are discussed and they will come back to the ER if necessary. She is instructed to come back particularly if she has any new symptoms or symptoms which are atypical of her normal SCD pain crises, specifically SOB, new chest pain, LOC, fever, other signs of infection, new hip pain, etc. Discharge - Discharge Information Problems reviewed: Yes Clinical Impression/Diagnosis: Sickle cell crisis Condition: Stable - Admission No - Follow up/Referral Referrals: [facility] [place] [facility] Med at [place] [Provider Group] - Patient Discharge Instructions Patient Printed Discharge Instructions: DI for Sickle Cell Anemia, Pain Crisis -- Adult Additional Instructions: Please make a follow up appointment with your primary care doctor (referral provided here). Please continue taking any medications as prescribed. If you experience any new, worsening, or concerning symptoms including worsening chest pain, difficulty breathing, weakness, numbness, tingling, slurred speech, or any other concerns, please return to the emergency department. - Post Discharge Activity
[2019-08-30 08:30] LABS: HEMATOCRIT 25.7 % (32.4-45.2); HEMOGLOBIN 8.8 GM/dL (10.7-15.3); MCH 30.7 pg (25.7-33.7); MCHC 34.2 g/dl (32.0-36.0); MEAN CELL VOLUME 89.7 fl (80-96); MEAN PLT VOLUME 7.5 fl (7.5-11.1); PLATELET COUNT 221 K/MM3 (134-434); RBC 2.87 M/mm3 (3.60-5.2); RDW 20.2 % (11.6-15.6); RETICULOCYTES 7.26 % (0.5-1.5); WHITE BLOOD COUNT 7.6 K/mm3 (4.0-10.0)
[2019-08-30 09:04] LABS: ALBUMIN 3.5 g/dl (3.4-5.0); BILIRUBIN,DIRECT 0.7 mg/dL (0.0-0.2); BLOOD UREA NITROGEN 9.2 mg/dL (7-18); CALCIUM 8.3 mg/dL (8.5-10.1); CREATININE 0.7 mg/dL (0.55-1.3); POTASSIUM 4.5 mmol/L (3.5-5.1); TOT PROT 8.4 g/dl (6.4-8.2)
[2019-08-30 10:06] LABS: ANISOCYTOSIS 2+; MACROCYTOSIS 1+; PLATELET ESTIMATE NORMAL; SICKELED CELLS 1+; TARGET CELLS 2+; TEAR DROP CELLS 1+
[2019-08-30 11:20] VITALS: BP 109/65; PULSE 82; TEMP 98.1
--- NOTE | 2019-08-31 09:17 | EKG ---
Test Reason : Blood Pressure : / mmHG Vent. Rate : 078 BPM Atrial Rate : 078 BPM P-R Int : 184 ms QRS Dur : 086 ms QT Int : 402 ms P-R-T Axes : 052 064 056 degrees QTc Int : 458 ms NORMAL SINUS RHYTHM NORMAL ECG WHEN COMPARED WITH ECG OF 30-JUN-2019 10:53, NO SIGNIFICANT CHANGE WAS FOUND Confirmed by Anam Chowdary ([id number]) on 08/31/2019 9:16:31 AM Referred By: Confirmed By:Anam Chowdary
== END 2019-08-30 11:00 | disposition home or self-care (01) ==
LOC: JER 04:54
PROC: 3E033GC Introduction of Other Therapeutic Substance into Peripheral Vein, Percutaneous Approach (ICD-10-PCS; principal; 2019-08-30)
DX: D57.00 Hb-SS disease with crisis, unspecified (principal)
CPT/HCPCS: 36415; 71046-TC-FY; 80053; 82248; 85025; 85044; 93005; 93010; 99285-25

== ENCOUNTER 2019-09-04 21:38 | Emergency (ER) | payer OTHER ==
--- NOTE | 2019-09-04 21:45 | PDOC ---
Rapid Medical Evaluation Medical Evaluation: Allergies Allergy/AdvReac Type Severity Reaction Status Date / Time morphine Allergy Verified 08/30/19 05:02 09/04/19 21:41 Pt presents for evaluation of sickle cell crisis. She is currently reporting chest pain and low back pain. States her pain never really resolved since her last visit. States she takes her hydroxyurea as prescribed. Exam: RRR, S1S12 present, appears uncomfortable Orders: labs, EKG, CXR Pt to proceed to the ER for further evaluation Discharge Disposition - Diagnosis Sickle cell crisis - Referrals - Patient Instructions - Post Discharge Activity
[2019-09-04 21:49] VITALS: BP 115/68; PULSE 69; TEMP 98; BMI 37.5
--- NOTE | 2019-09-04 22:02 | PDOC ---
Attending Attestation - Resident Resident Name: VeronicaOleg - HPI HPI: 09/05/19 00:35 Pt presents to the ED complaining of chest and back pain consistent with prior episodes of sickle cell crisis. Patient has longstanding history of sickle cell disease, with multiple crisises. Denies fever or cough. Denies shortness of breath. - Physicial Exam PE: 09/05/19 00:41 Agree with resident exam. Gen: alert, NAD. CV: rrr no m/r/g. Pulm: CTA b/l - Medical Decision Making 09/05/19 00:42 Pt presents to the ED complaining of chest and back pain similar to previous sickle cell crises. Labs are within normal limits. WIll give pain control with benadryl and dilaudid and reassess. Will consider admission for intractable pain. 09/05/19 00:44 Discharge - Discharge Information Problems reviewed: Yes Clinical Impression/Diagnosis: Sickle cell crisis Condition: Improved Disposition: HOME - Admission No - Follow up/Referral - Patient Discharge Instructions Patient Printed Discharge Instructions: DI for Sickle Cell Anemia, Pain Crisis -- Adult Additional Instructions: You came into the ED for chest pain and back pain. This is most likely due to your sickle cell disease. In the ED we took blood imaging and EKG which came back within normal limits. We also gave you three rounds of pain medication. You have stated that you wanted to go home so we are discharging you. 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 Return to the ED if you have any: - Seizure like symptoms: weakness in one limb, slurring of speech, dizziness, etc. - chest pain - Shortness of breath - Unbearable muscle pain - loss of sensation in limb - any other emergent symptoms If you think you have an emergency call for medical help right away - Post Discharge Activity
[2019-09-04] MEDS ORDERED: HYDROmorphone HCL CARPU-JECT 2 MG/1 ML DISP.SYRIN IVPB ONE (22:25)
[2019-09-04] MEDS ORDERED: ONDANSETRON 4 MG/2 ML VIAL IVPUSH ONE (22:28)
[2019-09-04] MEDS ORDERED: SODIUM CHLORIDE 0.9% 500 ML INFUS.BAG IV ONE (22:31)
--- NOTE | 2019-09-04 22:41 | PDOC ---
History of Present Illness - General Chief Complaint: Sickle Cell Crisis Stated Complaint: SICK Time Seen by Provider: 09/04/19 21:45 - History of Present Illness Initial Comments: 09/04/19 22:29 29 yo female with pmh of sickle cell disease, portal htn, multiple blood in clots presents to ED with chest pain and back pain for one week. Pt explains that she has similar symptoms in this past and this feels like acute pain syndrome and acute chest. Pt has had back pain and right sided leg pain since last ER stay which was on August 29. Since then three days ago the leg pain went away and she started having worsening midsternal chest pain. Pt explains it is pulsating pain, 10/10 in severity, worse with exertion, and her oxycodone and lidocaine patches have not helped. She explains that usually when she takes 4-6 mg dilaudid and 50mg benadryl the pain goes away. Pt also has associated sxs of nausea but denies any emesis. Pt denies fevers, chills, cough, abdominal pain, saddle anesthesia, or loss of control of bowel movements or urination. 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 Deirdre Scanlon Past History - Medical History Allergies/Adverse Reactions: Allergies Allergy/AdvReac Type Severity Reaction Status Date / Time morphine Allergy Verified 09/04/19 21:43 Home Medications: Ambulatory Orders Folic Acid 1 mg PO DAILY 04/26/16 Hydroxyurea [Hydrea] 500 mg PO BID 04/26/16 Nadolol 40 mg PO DAILY 04/26/16 Apixaban [Eliquis] 5 mg PO BID 04/13/19 oxyCODONE HCL [Oxycodone HCl] 30 mg PO TID 04/13/19 Anemia: Yes (sickle cell) Asthma: No Cancer: No Cardiac Disorders: Yes (RIGHT ATRIAL CLOT (RESOLVED)) CVA: No COPD: No CHF: No DVT: No Diabetes: No GI Disorders: Yes (BENIGN LIVER CYST) Disorders: No HTN: Yes (Portal hypertension) Hypercholesterolemia: No Liver Disease: Yes (Cirrhosis) Seizures: No Thyroid Disease: No Other medical history: lung scaring - Surgical History Abdominal Surgery: Yes (spleen) Appendectomy: Yes Cardiac Surgery: No Cholecystectomy: Yes Lung Surgery: No Neurologic Surgery: No Orthopedic Surgery: No - Immunization History Immunization Up to Date: No - Psycho-Social/Smoking History Smoking History: Never smoked Have you smoked in the past 12 months: No 'Breaking Loose' booklet given: 08/20/17 - Substance Abuse Hx (Audit-C & DAST Scrn) How often the patient has a drink containing alcohol: Never Score: In Men: 4 or > Positive; In Women: 3 or > Positive: 0 Screen Result (Pos requires Nsg. Audit-10AR): Negative Review of Systems - Review of Systems Comments:: 09/04/19 22:41 GENERAL/CONSTITUTIONAL: No fever or chills. No weakness. HEAD, EYES, EARS, NOSE AND THROAT: No change in vision. No ear pain or discharge. No sore throat. CARDIOVASCULAR: chest pain and sob RESPIRATORY: No cough, wheezing, or hemoptysis. GASTROINTESTINAL: Nausea. No vomiting, diarrhea or constipation. GENITOURINARY: No dysuria, frequency, or change in urination. MUSCULOSKELETAL: No joint or muscle swelling or pain. Back pain. SKIN: No rash NEUROLOGIC: No headache, vertigo, loss of consciousness, or change in strength/sensation. ENDOCRINE: No increased thirst. No abnormal weight change HEMATOLOGIC/LYMPHATIC: History of blood clots. ALLERGIC/IMMUNOLOGIC: No hives or skin allergy. *Physical Exam - Vital Signs Last Vital Signs Temp Pulse Resp BP Pulse Ox 98 F 69 18 115/68 100 09/04/19 21:40 09/04/19 21:40 09/04/19 21:40 09/04/19 21:40 09/04/19 21:40 - Physical Exam 09/04/19 22:44 GENERAL: Awake, alert, and fully oriented, in distress. HEAD: No signs of trauma, normocephalic, atraumatic EYES: PERRLA, EOMI, sclera anicteric, conjunctiva clear ENT: Auricles normal inspection, hearing grossly normal, nares patent, oropharynx clear without exudates. Moist mucosa NECK: Normal ROM, supple, no lymphadenopathy, JVD, or masses LUNGS: No distress, speaks full sentences, clear to auscultation bilaterally HEART: Tender to palpation on anterior chest wall. Right sided port on inspection. Regular rate and rhythm, normal S1 and S2, no murmurs, rubs or gallops, peripheral pulses normal and equal bilaterally. ABDOMEN: Soft, nontender, normoactive bowel sounds. No guarding, no rebound. No masses EXTREMITIES : Normal inspection, Normal range of motion, no edema. No clubbing or cyanosis. Lower lumbar bilateral paraspinal muscle tenderness. NEUROLOGICAL: Cranial nerves II through XII grossly intact. Normal speech, no focal sensorimotor deficits SKIN: Warm, Dry, normal turgor, no rashes or lesions noted 09/04/19 22:49 09/04/19 23:07 Heart Score/ECG Review - ECG Impressions Comment:: 09/04/19 22:58 Normal sinus rhythm at 70bmp Regular rate Normal axis Normal NM, QRS and QT interval T wave inversion in V2 no other ST changes. ED Treatment Course - LABORATORY CBC & Chemistry Diagram: 09/04/19 23:00 09/04/19 23:00 Medical Decision Making - Medical Decision Making 09/04/19 22:45 29 yo female with pmh of sickle cell disease presents with chest pain and back pain for one week. Will rule out acute chest with chest xray and ekg. Will also get CBC, CMP, reticulocyte count to rule out anemia. Will give pain meds 6mg dilaudid and 50 mg benadryl. Will also give zofran for nausea. 09/05/19 02:21 After initial dose of Dilaudid at 11:15 rechecked pain and pt still in pain so g ave another 6 dilaudid with 50 benadryl. Then rechecked pt at 12:30 where pt was still in pain so gave another dilaudid 6 and benadryl 50 at 130. After third dose told her if she needed more will have to admit. Will reassess pt at 2:30 09/05/19 07:45 Pt after taking 3 doses of 6mg dilaudid and 50mg benadryl feels better and ready to go home. Pt was discharged on return precautions. Discharge - Discharge Information Problems reviewed: Yes Clinical Impression/Diagnosis: Sickle cell crisis Condition: Improved Disposition: HOME - Follow up/Referral - Patient Discharge Instructions Patient Printed Discharge Instructions: DI for Sickle Cell Anemia, Pain Crisis -- Adult Additional Instructions: You came into the ED for chest pain and back pain. This is most likely due to your sickle cell disease. In the ED we took blood imaging and EKG which came back within normal limits. We also gave you three rounds of pain medication. You have stated that you wanted to go home so we are discharging you. Your workup is not complete without following up with your security police officer within one week. Return to the ED if you have any: - Seizure like symptoms: weakness in one limb, slurring of speech, dizziness, etc. - chest pain - Shortness of breath - Unbearable muscle pain - loss of sensation in limb - any other emergent symptoms If you think you have an emergency call for medical help right away - Post Discharge Activity
[2019-09-04] MEDS ORDERED: HYDROmorphone HCl 2 MG/ML VIAL ONE (23:04)
[2019-09-04 23:28] LABS: EOS % 2.6 % (0-4.5); HEMATOCRIT 27.5 % (32.4-45.2); HEMOGLOBIN 9.2 GM/dL (10.7-15.3); LYMPH % 19.1 % (8-40); MCH 30.7 pg (25.7-33.7); MCHC 33.6 g/dl (32.0-36.0); MEAN CELL VOLUME 91.4 fl (80-96); MEAN PLT VOLUME 8.3 fl (7.5-11.1); MONO % 17.1 % (3.8-10.2); NEUT % 59.2 % (42.8-82.8); PLATELET COUNT 212 K/MM3 (134-434); RBC 3.01 M/mm3 (3.60-5.2); RDW 18.8 % (11.6-15.6); WHITE BLOOD COUNT 8.1 K/mm3 (4.0-10.0)
[2019-09-05 00:06] LABS: ALBUMIN 3.4 g/dl (3.4-5.0); ALK PHOS 180 U/L (45-117); ANION GAP 7 MMOL/L (8-16); BILIRUBIN,TOTAL 1.9 mg/dL (0.2-1); BLOOD UREA NITROGEN 12.3 mg/dL (7-18); CALCIUM 8.2 mg/dL (8.5-10.1); CHLORIDE 105 mmol/L (98-107); CO2 27 mmol/L (21-32); GLUCOSE,RANDOM 115 mg/dL (74-106); POTASSIUM 3.6 mmol/L (3.5-5.1); SGOT/AST 55 U/L (15-37); SGPT/ALT 31 U/L (13-61); SODIUM 140 mmol/L (136-145); TOT PROT 8.6 g/dl (6.4-8.2)
[2019-09-05] MEDS ORDERED: HYDROmorphone HCL CARPU-JECT 2 MG/1 ML DISP.SYRIN IVPB ONE ×2 (00:26→01:44)
[2019-09-05] MEDS ORDERED: HYDROmorphone HCl 2 MG/ML VIAL ONE ×2 (00:35→02:32)
[2019-09-05 03:09] LABS: EPI CELLS 4 /uL (0-25.1); HCG,QUALITATIVE URINE Negative; HYALINE CASTS 1 /uL (0-3.1); PH,URINE 6.5 (5.0-8.0); URINE APPEARANCE CLEAR; URINE BACTERIA 40 /uL (0-1359); URINE BILIRUBIN NEGATIVE (NEGATIVE); URINE COLOR YELLOW; URINE GLUCOSE (UA) NEGATIVE (NEGATIVE); URINE KETONE NEGATIVE (NEGATIVE); URINE LEUK ESTERASE NEGATIVE (NEGATIVE); URINE NITRITE NEGATIVE (NEGATIVE); URINE PROTEIN NEGATIVE (NEGATIVE); URINE RBC 13 /uL (0-23.9); URINE WBC 6 /uL (0-25.8)
--- NOTE | 2019-09-06 17:34 | EKG ---
Test Reason : Blood Pressure : / mmHG Vent. Rate : 073 BPM Atrial Rate : 073 BPM P-R Int : 176 ms QRS Dur : 082 ms QT Int : 390 ms P-R-T Axes : 033 064 055 degrees QTc Int : 429 ms NORMAL SINUS RHYTHM NORMAL ECG WHEN COMPARED WITH ECG OF 30-AUG-2019 06:04, NO SIGNIFICANT CHANGE WAS FOUND Confirmed by MD Moore Edward ([id number]) on 09/06/2019 5:33:37 PM Referred By: Confirmed By:Mahad Moore MD
== END 2019-09-05 03:29 | disposition home or self-care (01) ==
LOC: JER 21:38
PROC: 3E033NZ Introduction of Analgesics, Hypnotics, Sedatives into Peripheral Vein, Percutaneous Approach (ICD-10-PCS; principal; 2019-09-04)
PROC: 3E033GC Introduction of Other Therapeutic Substance into Peripheral Vein, Percutaneous Approach (ICD-10-PCS; 2019-09-04)
DX: D57.219 Sickle-cell/Hb-C disease with crisis, unspecified (principal)
CPT/HCPCS: 36415; 71046-TC-FY; 80053; 81003; 82550; 83605; 84484; 84703; 85025; 85044; 93005; 93010; 99285-25

== ENCOUNTER 2019-09-30 20:59 | Emergency (ER) | payer OTHER ==
[2019-09-30 21:06] VITALS: BMI 38.2
[2019-09-30] MEDS ORDERED: ONDANSETRON 4 MG/2 ML VIAL IVPUSH ONE (21:56)
[2019-09-30] MEDS ORDERED: HYDROmorphone HCL CARPU-JECT 2 MG/1 ML DISP.SYRIN IVPUSH ONE ×2 (21:56→22:38)
[2019-09-30] MEDS ORDERED: diphenhydrAMINE HCL 25 MG CAPSULE (FP) PO ONE (21:57)
[2019-09-30] MEDS ORDERED: SODIUM CHLORIDE 0.9% 500 ML INFUS.BAG IV ONE (22:17)
--- NOTE | 2019-09-30 22:17 | PDOC ---
History of Present Illness - General Chief Complaint: Pain Stated Complaint: SICK Time Seen by Provider: 09/30/19 21:42 History Source: Patient Exam Limitations: No Limitations - History of Present Illness Initial Comments: 09/30/19 22:13 Patient is a 29-year-old woman with a PMH of Sickle cell disease, Pericardial effusion, Cirrhosis, Portal vein thrombosis, Splenectomy, Right atrial clot (on eliquis), Portal hypertension with Esophageal varices who presents ER for evaluation of chest and abdominal pain over 3 weeks worsening after recent cardiac catheterization. Pt states that she wsa seen here about 10 days ago for similar pain which resolved briefly and then returned. Pt states that this pain is consistent with her normal sickle cell crisis. Pt describes the pain as diffuse radiating down her right chest to abdomen. Pt otherwise denies: fevers, chills, syncope, lightheadedness, dizziness, headaches, neck pain, palpitations, back pain, nausea, vomiting, diarrhea, constipation. Past History - Medical History Allergies/Adverse Reactions: Allergies Allergy/AdvReac Type Severity Reaction Status Date / Time morphine Allergy Verified 09/19/19 14:31 Home Medications: Ambulatory Orders Folic Acid 2 mg PO DAILY 04/26/16 Hydroxyurea [Hydrea] 500 mg PO BID 04/26/16 Apixaban [Eliquis] 5 mg PO BID 04/13/19 oxyCODONE HCL [Oxycodone HCl] 30 mg PO Q4H PRN 04/13/19 Propranolol HCl 40 mg PO HS 09/19/19 Anemia: Yes (sickle cell) Asthma: No Cancer: No Cardiac Disorders: Yes (RIGHT ATRIAL CLOT (RESOLVED)) CVA: No COPD: No CHF: No DVT: No Diabetes: No GI Disorders: Yes (BENIGN LIVER CYST) Disorders: No HTN: Yes (Portal hypertension) Hypercholesterolemia: No Liver Disease: Yes (Cirrhosis) Seizures: No Thyroid Disease: No - Surgical History Abdominal Surgery: Yes (spleen) Appendectomy: Yes Cardiac Surgery: No Cholecystectomy: Yes Lung Surgery: No Neurologic Surgery: No Orthopedic Surgery: No - Reproductive History Is Patient Now?: No - Immunization History Immunization Up to Date: No - Psycho-Social/Smoking History Smoking History: Never smoked Have you smoked in the past 12 months: No 'Breaking Loose' booklet given: 08/20/17 - Substance Abuse Hx (Audit-C & DAST Scrn) How often the patient has a drink containing alcohol: Never Score: In Men: 4 or > Positive; In Women: 3 or > Positive: 0 Screen Result (Pos requires Nsg. Audit-10AR): Negative In the last yr the pt used illegal drug/Rx for NonMed reason: No Score: Yes response is considered Positive: 0 Screen Result (Positive result requires Nsg. DAST-10): Negative *Physical Exam - Vital Signs Last Vital Signs Temp Pulse Resp BP Pulse Ox 97.7 F 94 H 19 105/68 97 09/30/19 21:02 09/30/19 21:02 09/30/19 21:02 09/30/19 21:02 09/30/19 21:02 - Physical Exam 09/30/19 22:15 Gen: AAOx 3, no acute distress, comfortable, no signs of respiratory distress HENT: atraumatic, normocephalic with no laceration or contusion. Nasal mucosa without erythema. Oropharynx without erythema or exudates. Mucous membranes moist. EYES: PERRL, EOM intact, conjunctiva pink NECK: supple; trachea midline; no JVD, no lymphadenopathy, or thyromegaly CV: RRR no murmurs, gallops, or rubs. CHEST: CTA b/l no wheezing, rales or rhonchi ttp to anterior chest wall, port on right side of chest wall ABD: +BS/ND. diffusely TTP throughout; soft, no rebound, voluntary guarding EXTREMITY: no cyanosis or erythema. 2+ dorsalis pedis, posterior tibial, and radial pulse. No pedal edema; no calf swelling or tenderness SKIN: no rash, warm and dry, no diaphoresis HEME: no purpura or ecchymosis NEURO: normal speech, CN II-XII intact, sensation intact, normal gait, no ce rebellar deficits MS: 5/5 strength in all extremities, FROM intact in all extremities. ED Treatment Course - LABORATORY CBC & Chemistry Diagram: 09/30/19 22:00 09/30/19 22:00 - RADIOLOGY Radiology Studies Ordered: Category Date Time Status ABDOMEN & PELVIS CT WITH CONTR [CT] Stat CT Scan 09/30/19 21:57 Ordered CHEST CTA [CT] Stat CT Scan 09/30/19 21:58 Ordered CHEST PA & LAT [RAD] Stat Radiology 09/30/19 21:55 Ordered Medical Decision Making - Medical Decision Making 09/30/19 22:16 29-year-old woman with a PMH of Sickle cell disease, Pericardial effusion, Cirrhosis, Portal vein thrombosis, Splenectomy, Right atrial clot, Portal hypertension with Esophageal varices who presents ER for evaluation of chest and abdominal pain Vital signs stable Will obtain labs including reticulocyte count lactate Will administer pain medicine Benadryl and Zofran as well as fluids Will obtain CT chest abdomen pelvis to assess for internal pathology Will reassess based on results Pt pain unchanged with 2mg IV hydromorphone will add 2 more mg of hydromorphone Pt pain improved but not resolved will administer 2 more mg of hydromorphone and 50mg Benadryl Labs show H/H: 9.5/28 Reticulocyte count 6.61 AST 63 Total bilirubin 2.5 Alk phos 180 Beta-hCG negative Rest of labs noncontributory EKG NSR no T wave depressions or elevations Due to Shift change pt signed out pending CTs 10/01/19 01:12 Discharge - Discharge Information Problems reviewed: Yes Clinical Impression/Diagnosis: Sickle cell anemia with crisis - Follow up/Referral - Patient Discharge Instructions - Post Discharge Activity
[2019-09-30] MEDS ORDERED: HYDROmorphone HCl 2 MG/ML VIAL ONE ×2 (22:23→22:40)
[2019-09-30 22:37] LABS: PROTHROMBIN TIME (PATIENT) 11.8 SEC (9.7-13.0)
[2019-09-30 23:00] LABS: ACTIVATED PTT 113.4 SECONDS (25.2-36.5)
[2019-09-30 23:14] LABS: HEMOGLOBIN 9.5 GM/dL (10.7-15.3); MEAN CELL VOLUME 91.3 fl (80-96); MEAN PLT VOLUME 8.7 fl (7.5-11.1); PLATELET COUNT 280 K/MM3 (134-434); RBC 3.07 M/mm3 (3.60-5.2); RDW 19.7 % (11.6-15.6); RETICULOCYTES 6.61 % (0.5-1.5); WHITE BLOOD COUNT 9.1 K/mm3 (4.0-10.0)
[2019-09-30 23:34] LABS: ALBUMIN 3.8 g/dl (3.4-5.0); ANION GAP 8 MMOL/L (8-16); BILIRUBIN,TOTAL 2.5 mg/dL (0.2-1); BLOOD UREA NITROGEN 9.8 mg/dL (7-18); CALCIUM 8.9 mg/dL (8.5-10.1); CHLORIDE 107 mmol/L (98-107); CO2 25 mmol/L (21-32); CREATININE 0.8 mg/dL (0.55-1.3); GLUCOSE,RANDOM 101 mg/dL (74-106); N-TERMINAL BNP 42.4 pg/ml (5-125); POTASSIUM 3.8 mmol/L (3.5-5.1); SGOT/AST 63 U/L (15-37); SGPT/ALT 27 U/L (13-61); SODIUM 140 mmol/L (136-145); TOT PROT 9.1 g/dl (6.4-8.2)
[2019-09-30 23:42] LABS: ALK PHOS 180 U/L (45-117)
[2019-09-30 23:56] LABS: LIPASE 46 U/L (73-393)
[2019-10-01] MEDS ORDERED: HYDROmorphone HCL CARPU-JECT 2 MG/1 ML DISP.SYRIN IVPUSH ONE ×2 (00:01→01:53)
[2019-10-01 00:10] LABS: ANISOCYTOSIS 1+
[2019-10-01] MEDS ORDERED: HYDROmorphone HCl 2 MG/ML VIAL ONE ×2 (00:11→02:01)
[2019-10-01 00:12] LABS: SICKELED CELLS 1+
[2019-10-01] MEDS ORDERED: SODIUM CHLORIDE 0.9% 1000 ML INFUS.BAG IV ONE (01:53)
--- NOTE | 2019-10-01 01:57 | PDOC ---
*Physical Exam - Vital Signs Last Vital Signs Temp Pulse Resp BP Pulse Ox 97.7 F 94 H 19 105/68 97 09/30/19 21:02 09/30/19 21:02 09/30/19 21:02 09/30/19 21:02 09/30/19 21:02 - Physical Exam General Appearance: Yes: Nourished, Appropriately Dressed. No: Apparent Distress HEENT: positive: EOMI, Normal Voice Neck: positive: Supple Respiratory/Chest: positive: Lungs Clear, Normal Breath Sounds, Other (port a cath R chest wall). negative: Respiratory Distress Cardiovascular: positive: Regular Rhythm, Regular Rate, S1, S2 Gastrointestinal/Abdominal: positive: Soft, Tenderness (RUQ) Extremity: positive: Normal Inspection, Other (ambulatory in the ER) Integumentary: positive: Normal Color, Dry, Warm ED Treatment Course - LABORATORY CBC & Chemistry Diagram: 09/30/19 22:00 09/30/19 22:00 - ADDITIONAL ORDERS Additional order review: Laboratory Results 09/30/19 09/30/19 09/30/19 22:00 22:00 22:00 PT with INR 11.80 INR 1.00 PTT (Actin FS) 113.4 H Sodium 140 Potassium 3.8 Chloride 107 Carbon Dioxide 25 Anion Gap 8 BUN 9.8 Creatinine 0.8 Est GFR (CKD-EPI)AfAm 113.86 Est GFR (CKD-EPI)NonAf 98.24 Random Glucose 101 Lactic Acid 0.7 Calcium 8.9 Total Bilirubin 2.5 H AST 63 H ALT 27 Alkaline Phosphatase 180 H Creatine Kinase 93 Troponin I < 0.02 B-Natriuretic Peptide 42.4 Total Protein 9.1 H Albumin 3.8 Lipase 46 L Beta HCG, Quant < 1.0 09/30/19 22:00 RBC 3.07 L MCV 91.3 MCHC 34.0 RDW 19.7 H MPV 8.7 Neutrophils % No Result Required. Lymphocytes % No Result Required. - Medications Given in the ED: ED Medications Discontinued Medications Generic Name Dose Route Start Last Admin Trade Name Freq PRN Reason Stop Dose Admin Diphenhydramine HCl 50 mg 09/30/19 21:57 09/30/19 22:36 Benadryl - PO 09/30/19 21:58 50 mg ONCE ONE Administration Diphenhydramine HCl 50 mg 10/01/19 00:01 10/01/19 00:14 Benadryl Injection - IVPUSH 10/01/19 00:02 50 mg ONCE ONE Administration Hydromorphone HCl 2 mg 09/30/19 21:56 09/30/19 22:32 Dilaudid Injection - IVPUSH 09/30/19 21:57 2 mg ONCE ONE Administration Hydromorphone HCl 2 mg 09/30/19 22:38 09/30/19 22:42 Dilaudid Injection - IVPUSH 09/30/19 22:39 2 mg ONCE ONE Administration Hydromorphone HCl 2 mg 10/01/19 00:01 10/01/19 00:14 Dilaudid Injection - IVPUSH 10/01/19 00:02 2 mg ONCE ONE Administration Ondansetron HCl 4 mg 09/30/19 21:56 09/30/19 22:32 Zofran Injection IVPUSH 09/30/19 21:57 4 mg ONCE ONE Administration Sodium Chloride 1,500 ml 09/30/19 22:17 09/30/19 22:36 Normal Saline - IV 09/30/19 22:18 1,500 ml ONCE ONE Administration Medical Decision Making - Medical Decision Making 10/01/19 01:55 a/p: 29yo female with R sided cp and abd pain -labs reviewed, mildly elevated retic, hgb 9.5 -cta c/a/p pending -pt still with pain, requesting another dose of pain meds -will hydate after the ct -will monitor and reassess -pt will be signed out to the night team pending cta c/a/p Discharge - Discharge Information Problems reviewed: Yes Clinical Impression/Diagnosis: Sickle cell anemia with crisis Condition: Fair - Follow up/Referral - Patient Discharge Instructions - Post Discharge Activity
--- NOTE | 2019-10-01 02:01 | PDOC ---
*Physical Exam - Vital Signs Last Vital Signs Temp Pulse Resp BP Pulse Ox 97.7 F 94 H 19 105/68 97 09/30/19 21:02 09/30/19 21:02 09/30/19 21:02 09/30/19 21:02 09/30/19 21:02 ED Treatment Course - LABORATORY CBC & Chemistry Diagram: 09/30/19 22:00 09/30/19 22:00 - ADDITIONAL ORDERS Additional order review: Laboratory Results 09/30/19 09/30/19 09/30/19 22:00 22:00 22:00 PT with INR 11.80 INR 1.00 PTT (Actin FS) 113.4 H Sodium 140 Potassium 3.8 Chloride 107 Carbon Dioxide 25 Anion Gap 8 BUN 9.8 Creatinine 0.8 Est GFR (CKD-EPI)AfAm 113.86 Est GFR (CKD-EPI)NonAf 98.24 Random Glucose 101 Lactic Acid 0.7 Calcium 8.9 Total Bilirubin 2.5 H AST 63 H ALT 27 Alkaline Phosphatase 180 H Creatine Kinase 93 Troponin I < 0.02 B-Natriuretic Peptide 42.4 Total Protein 9.1 H Albumin 3.8 Lipase 46 L Beta HCG, Quant < 1.0 09/30/19 22:00 RBC 3.07 L MCV 91.3 MCHC 34.0 RDW 19.7 H MPV 8.7 Neutrophils % No Result Required. Lymphocytes % No Result Required. - Medications Given in the ED: ED Medications Discontinued Medications Generic Name Dose Route Start Last Admin Trade Name Freq PRN Reason Stop Dose Admin Diphenhydramine HCl 50 mg 09/30/19 21:57 09/30/19 22:36 Benadryl - PO 09/30/19 21:58 50 mg ONCE ONE Administration Diphenhydramine HCl 50 mg 10/01/19 00:01 10/01/19 00:14 Benadryl Injection - IVPUSH 10/01/19 00:02 50 mg ONCE ONE Administration Hydromorphone HCl 2 mg 09/30/19 21:56 09/30/19 22:32 Dilaudid Injection - IVPUSH 09/30/19 21:57 2 mg ONCE ONE Administration Hydromorphone HCl 2 mg 09/30/19 22:38 09/30/19 22:42 Dilaudid Injection - IVPUSH 09/30/19 22:39 2 mg ONCE ONE Administration Hydromorphone HCl 2 mg 10/01/19 00:01 10/01/19 00:14 Dilaudid Injection - IVPUSH 10/01/19 00:02 2 mg ONCE ONE Administration Ondansetron HCl 4 mg 09/30/19 21:56 09/30/19 22:32 Zofran Injection IVPUSH 09/30/19 21:57 4 mg ONCE ONE Administration Sodium Chloride 1,500 ml 09/30/19 22:17 09/30/19 22:36 Normal Saline - IV 09/30/19 22:18 1,500 ml ONCE ONE Administration Medical Decision Making - Medical Decision Making 10/01/19 01:56 Signed out to me by FRITZ Soto. Extensive PMH, sickle cell disease, hepatic disease, here for R chest pain and abdominal pain. Pending CT CAP for evaluation of pulmonary effusions and portal vein thrombosis. Patient already received 8mg IV Dilaudid and 150mg IV Benadryl. Patient wants to go home but has received large number of opiates and has extensive PMH and abd pain, possible sickle cell crisis, needs admission. Will AMA if patient needs to leave. 10/01/19 04:00 CTAP delay in reading with Imaging technology professional. Patient antagonizing ED staff and berating nurses as she waits for test results. Requested more Benadryl because she reports increased pruritis with Dilaudid, but has already received 200mg IV Benadryl, uncomfortable giving more. Explained this to patient who continues to demand more. 10/01/19 04:10 Patient yelling at nursing staff behind nurses station and refuses to return to room. Security called, yelling at security. Advised patient to return to room. Patient wants to leave. Advised patient that it is the medical advice of several physicians that she stay for evaluation and pain control. Patient explains in her own words that she is very sick with multiple chronic medical conditions, but started a new job and cannot call out from work. Again advised patient that she is correct and that she needs evaluation in the hospital for her pain, but patient insists to leave against medical advice. Patient is of sound mind and is not intoxicated, has the capacity to make this decision. Patient specifically rejects the idea that she is leaving against medical advice, stating that she disagrees with the advice because she has to go to work. Refuses to sign AMA paperwork. Has port access in place, cannot leave without removal. Demands IV heparin flush and 2x saline flush. Port access flushed with heparin and removed. 10/01/19 04:30 Patient continues to yell at ED staff and security at the exit door despite prior insistence that she wants to leave. Security escorted patient out from ED. Patient has eloped. 10/01/19 05:36 Contacted by Imaging technology professional Dr. Sánchez for further clarification, given prolon [employer] time to read a CTA marked as critical protocol for expedited read after ~6 hours of waiting. Reports that patient has no evidence of PE or aortic pathology on CTA, CTAP shows splenectomy and R portal vein thrombosis with significant collaterals, no other significant pathology noted. No need for patient call-back for critical results at this time. Discharge - Discharge Information Problems reviewed: Yes Clinical Impression/Diagnosis: Sickle cell anemia with crisis Condition: Fair Disposition: ELOPED - Follow up/Referral - Patient Discharge Instructions - Post Discharge Activity
[2019-10-01 02:19] VITALS: BP 107/68; PULSE 100; TEMP 97.9
--- NOTE | 2019-10-01 16:55 | EKG ---
Test Reason : Blood Pressure : / mmHG Vent. Rate : 092 BPM Atrial Rate : 092 BPM P-R Int : 190 ms QRS Dur : 088 ms QT Int : 388 ms P-R-T Axes : 048 061 052 degrees QTc Int : 479 ms NORMAL SINUS RHYTHM NORMAL ECG WHEN COMPARED WITH ECG OF 19-SEP-2019 15:56, NO SIGNIFICANT CHANGE WAS FOUND Confirmed by JULIO VALLE MD ([id number]) on 10/01/2019 4:55:04 PM Referred By: Confirmed By:JULIO VALLE MD
== END 2019-10-01 04:01 | disposition left against medical advice (07) ==
LOC: JER 20:59
PROC: 3E0333Z Introduction of Anti-inflammatory into Peripheral Vein, Percutaneous Approach (ICD-10-PCS; principal; 2019-09-30)
PROC: 3E033NZ Introduction of Analgesics, Hypnotics, Sedatives into Peripheral Vein, Percutaneous Approach (ICD-10-PCS; 2019-09-30)
DX: D57.00 Hb-SS disease with crisis, unspecified (principal)
CPT/HCPCS: 36415; 71275-TC; 74177-TC; 80053; 82550; 83605; 83690; 83880; 84484; 84702; 85025; 85045; 85610; 85730; 93005; 93010; 99285-25; Q9967

== ENCOUNTER 2019-10-16 20:55 | Inpatient (IN) | payer OTHER ==
[2019-10-16 21:07] VITALS: BMI 38.2
--- NOTE | 2019-10-16 22:00 | PDOC ---
History of Present Illness - General Chief Complaint: Pain Stated Complaint: SICK Time Seen by Provider: 10/16/19 21:58 - History of Present Illness Initial Comments: 10/16/19 22:19 29yo F, h/o Sickle Cell Disease and several other conditions, presents with pain crisis in back and R knee. Past History - Travel History Traveled outside of the country in the last 30 days: No Close contact w/someone who was outside of country & ill: No - Medical History Allergies/Adverse Reactions: Allergies Allergy/AdvReac Type Severity Reaction Status Date / Time morphine Allergy Verified 10/16/19 21:07 Home Medications: Ambulatory Orders Folic Acid 2 mg PO DAILY 04/26/16 Hydroxyurea [Hydrea] 500 mg PO BID 04/26/16 Apixaban [Eliquis] 5 mg PO BID 04/13/19 oxyCODONE HCL [Oxycodone HCl] 30 mg PO Q4H PRN 04/13/19 Propranolol HCl 40 mg PO HS 09/19/19 Anemia: Yes (sickle cell) Asthma: No Cancer: No Cardiac Disorders: Yes (RIGHT ATRIAL CLOT (RESOLVED)) CVA: No COPD: No CHF: No DVT: No Diabetes: No GI Disorders: Yes (BENIGN LIVER CYST) Disorders: No HTN: Yes (Portal hypertension) Hypercholesterolemia: No Liver Disease: Yes (Cirrhosis) Seizures: No Thyroid Disease: No - Surgical History Abdominal Surgery: Yes (spleen 4 yrs old) Appendectomy: Yes Cardiac Surgery: No Cholecystectomy: Yes Lung Surgery: No Neurologic Surgery: No Orthopedic Surgery: No - Reproductive History Is Patient Now?: No - Immunization History Immunization Up to Date: No - Psycho-Social/Smoking History Smoking History: Never smoked Have you smoked in the past 12 months: No 'Breaking Loose' booklet given: 08/20/17 - Substance Abuse Hx (Audit-C & DAST Scrn) How often the patient has a drink containing alcohol: Never Score: In Men: 4 or > Positive; In Women: 3 or > Positive: 0 Screen Result (Pos requires Nsg. Audit-10AR): Negative Review of Systems - Review of Systems Able to Perform ROS?: Yes Constitutional: No: Chills, Diaphoresis, Fever HEENTM: No: Blurred Vision, Nose Bleeding, Difficulty Swallowing Respiratory: No: Cough, Shortness of Breath, Hemoptysis Cardiac (ROS): No: Chest Pain, Syncope, Chest Tightness ABD/GI: No: Blood Streaked Bowels, Constipated, Diarrhea, Nausea, Vomiting : Yes: Other (LMP in 2016). No: Hematuria, Pain Musculoskeletal: Yes: Back Pain, Joint Pain (R knee), Muscle Pain Integumentary: Yes: Dryness, Pruritus. No: Rash Neurological: No: Headache, Seizure, Unsteady Gait, Dizziness *Physical Exam - Vital Signs Last Vital Signs Temp Pulse Resp BP Pulse Ox 97 F L 97 H 18 119/73 98 10/16/19 21:03 10/16/19 21:03 10/16/19 21:03 10/16/19 21:03 10/16/19 21:03 - Physical Exam General Appearance: Yes: Nourished, Appropriately Dressed, Apparent Distress, Mild Distress Neck: positive: Trachea midline. negative: Stridor Respiratory/Chest: positive: Lungs Clear, Normal Breath Sounds. negative: Accessory Muscle Use, Labored Respiration Cardiovascular: positive: Regular Rhythm, Regular Rate Gastrointestinal/Abdominal: positive: Soft, Other (uncomfortable belly ) Musculoskeletal: positive: Other (whole-back pain) Extremity: positive: Normal Capillary Refill, Normal Inspection Integumentary: positive: Normal Color, Dry, Warm Neurologic: positive: Fully Oriented, Alert, Normal Mood/Affect, Normal Response, Motor Strength 5/5 ED Treatment Course - LABORATORY CBC & Chemistry Diagram: 10/17/19 00:05 10/17/19 00:05 Medical Decision Making - Medical Decision Making 10/16/19 22:24 h/o pain crises -> p/w acute back and knee pain. Asking for benadryl, zofran, dilaudid. Discharge - Discharge Information Problems reviewed: Yes Clinical Impression/Diagnosis: Sickle cell crisis Condition: Stable Disposition: HOME - Admission No - Follow up/Referral - Patient Discharge Instructions - Post Discharge Activity
[2019-10-16] MEDS ORDERED: HYDROmorphone HCL CARPU-JECT 2 MG/1 ML DISP.SYRIN IVPUSH ONE (22:30)
[2019-10-16] MEDS ORDERED: LACTATED RINGERS SOLUTION 1000 ML INFUS.BAG IV ONE (22:30)
[2019-10-16] MEDS ORDERED: ONDANSETRON 4 MG/2 ML VIAL IVPUSH ONE (22:31)
[2019-10-16] MEDS ORDERED: HYDROmorphone HCl 2 MG/ML VIAL ONE (23:34)
--- NOTE | 2019-10-16 23:46 | PDOC ---
Documentation entered by Phan Menjivar SCRIBE, acting as scribe for Migue Caro MD. Migue Caro MD: This documentation has been prepared by the scribe, Phan Menjivar SCRIBE, under my direction and personally reviewed by me in its entirety. I confirm that the documentation accurately reflects all work, treatment, procedures, and medical decision making performed by me. Attending Attestation - Resident Resident Name: Misha Kincaid - ED Attending Attestation I have performed the following: I have examined & evaluated the patient, The case was reviewed & discussed with the resident, I agree w/resident's findings & plan, Exceptions are as noted - HPI HPI: 10/16/19 23:14 The patient is a 29 year old female with a significant past medical history of sickle cell disease with an indwelling power port, portal htn, PE on coumadin, arthritis,benign tumor of liver who presents to the emergency department for evaluation of back and right knee pain that began today at work. She reports her pain is radiating across her back and does not have a central focal point. There is no associated focal numbness, tingling, weakness, history of trauma. Patient states that this constellation of pain is consistent with her prior episodes of sickle cell. She denies any fever, chills, cough, chest pain, shortness of breath. She denies any headache, focal numbness, tingling, weakness, vision changes. Allergies: morphine Past Surgical Hx: splenectomy, appendectomy, cholecystectomy, 1 Social: Denies drugs, alcohol, and tobacco Consumer Safety Officer: Dr. Deirdre Scanlon 0 - Physicial Exam PE: 10/16/19 22:01 GENERAL: The patient is awake, alert, and fully oriented, Nontoxic - in no acute distress. HEAD: Normocephalic, atraumatic. EYES: extraocular movements intact, sclera anicteric, conjunctiva clear. ENT: Normal voice, Moist mucous membranes. NECK: Normal range of motion, supple without lymphadenopathy, JVD, or masses. LUNGS/CHEST: Port in the right upper chest, Breath sounds equal, clear to auscultation bilaterally. No wheezes, no crackles, no rales. HEART: Regular rate and rhythm, normal S1 and S2 without murmur, rub or gallop. ABDOMEN: Soft, nontender, normoactive bowel sounds. No guarding, no rebound. No masses. EXTREMITIES: Normal range of motion, Trace edema. No clubbing or cyanosis. No cords, erythema, or tenderness. NEUROLOGICAL: No facial asymmetry, Normal speech, normal gait.Moving all 4 extremity spontaneously symmetrically PSYCH: Normal mood, normal affect. SKIN: Warm, Dry, normal turgor, no rashes or lesions noted. - Medical Decision Making 10/16/19 23:45 will obtain lab work to r/o anemia/metabolic derangement will treat pts pain with dilaudid 2mg (pt staets she usually takes 6mg) will give 50mg benadryl ekg fluids for hydration case signed out to the evening team to reasess Discharge - Discharge Information Problems reviewed: Yes Clinical Impression/Diagnosis: Sickle cell crisis Condition: Stable Disposition: HOME - Follow up/Referral - Patient Discharge Instructions - Post Discharge Activity
--- NOTE | 2019-10-16 23:52 | PDOC ---
*Physical Exam - Vital Signs Last Vital Signs Temp Pulse Resp BP Pulse Ox 97 F L 97 H 18 119/73 98 10/16/19 21:03 10/16/19 21:03 10/16/19 21:03 10/16/19 21:03 10/16/19 21:03 ED Treatment Course - LABORATORY CBC & Chemistry Diagram: 10/17/19 00:05 10/17/19 00:05 Medical Decision Making - Medical Decision Making 10/16/19 23:50 Sign-out received from Dr. Kincaid. Patient with sickle cell disease presenting with pain crisis. S/p 50 Benadryl, 2 Dilaudid CBC, CMP, Reticulocyte count ordered Will re-evaluate pain, follow up labs, and disposition appropriately 10/17/19 00:30 Continued pain, given additional 2mg Dilaudid EKbpm, sinus, normal axis, QTc 457, no ST changes, no concerning morphologies 10/17/19 02:28 Patient resting s/p additional 2mg Dilaudid (now s/p 6 total) Labs notable for elevated reticulocyte count c/w prior Anticipated Discharge 10/17/19 02:52 Patient given additional 2mg Dilaudid Cannot give Benadryl, recently s/p 100 mg 10/17/19 05:28 After further rounds of pain medication, discussion, patient agrees to admission for continued care Dispo: Admit Discharge - Discharge Information Problems reviewed: Yes Clinical Impression/Diagnosis: Sickle cell crisis Condition: Stable Disposition: HOME - Admission No - Follow up/Referral - Patient Discharge Instructions Patient Printed Discharge Instructions: DI for Sickle Cell Anemia, Pain Crisis -- Adult Additional Instructions: You were seen and evaluated at [place] for Sickle Cell Pain Crisis. Please continue your home medications as directed. Follow up with your primary care doctor as scheduled. Return to the ED for any new or concerning symptoms. - Post Discharge Activity
[2019-10-17] MEDS ORDERED: HYDROmorphone HCL CARPU-JECT 2 MG/1 ML DISP.SYRIN IVPUSH ONE ×3 (00:20→02:52)
[2019-10-17] MEDS ORDERED: HYDROmorphone HCl 2 MG/ML VIAL ONE ×8 (00:22→18:33)
--- NOTE | 2019-10-17 00:42 | PDOC ---
*Physical Exam - Vital Signs Last Vital Signs Temp Pulse Resp BP Pulse Ox 97 F L 97 H 18 119/73 98 10/16/19 21:03 10/16/19 21:03 10/16/19 21:03 10/16/19 21:03 10/16/19 21:03 ED Treatment Course - LABORATORY CBC & Chemistry Diagram: 10/17/19 00:05 10/17/19 00:05 - Medications Given in the ED: ED Medications Discontinued Medications Generic Name Dose Route Start Last Admin Trade Name Elvis PRN Reason Stop Dose Admin Diphenhydramine HCl 50 mg 10/16/19 22:30 10/17/19 00:07 Benadryl Injection - IVPUSH 10/16/19 22:31 50 mg ONCE ONE Administration Hydromorphone HCl 2 mg 10/16/19 22:30 10/17/19 00:08 Dilaudid Injection - IVPUSH 10/16/19 22:31 2 mg ONCE ONE Administration Hydromorphone HCl 2 mg 10/17/19 00:20 10/17/19 00:25 Dilaudid Injection - IVPUSH 10/17/19 00:21 2 mg ONCE ONE Administration Lactated Ringer's 1,000 ml 10/16/19 22:30 10/17/19 00:07 Lactated Ringers Solution IV 10/16/19 22:31 1,000 ml ONCE ONE Administration Ondansetron HCl 4 mg 10/16/19 22:31 10/17/19 00:08 Zofran Injection IVPUSH 10/16/19 22:32 4 mg ONCE ONE Administration Medical Decision Making - Medical Decision Making 10/17/19 00:41 Pt signed out to me; she is a sickler who comes with a sickle crisis. She is being managed with pain meds and benadryl. EKG is NSR. 10/17/19 05:26 PT HAS BEEN GIVEN 2MG ALIQUIOTS OF DILAUDID X 4; PT RECEIVED ANOTHER 4MG DIL AUDID PT ALSO RECEIVED 100MG BENADRYL; THEN SGHE RECEIVED ANOTHER 50MG BENADRYL PT REMAINS IN PAIN AND SHE IS REQUESTING ADMISSION TO OBSERVATION WE WILL NOTIFY THE HOSPITALISTS 10/17/19 05:31 PT IS ARGUMENTATIVE AND WALKING ABOUT THE ER AND CALLING STAFF MEMBERS "UNPROFESSIONAL." DESPITE THE FACT THAT WE HAVE RESPONDED TO HER REQUESTS [facility]OR PAIN MEDS AND REQUEST FOR ADMISSION TO AN OBSERVATION BED. Discharge - Discharge Information Problems reviewed: Yes Clinical Impression/Diagnosis: Sickle cell crisis Condition: Stable Disposition: HOME - Follow up/Referral - Patient Discharge Instructions Patient Printed Discharge Instructions: DI for Sickle Cell Anemia, Pain Crisis -- Adult Additional Instructions: You were seen and evaluated at [place] for Sickle Cell Pain Crisis. Please continue your home medications as directed. Follow up with your primary care doctor as scheduled. Return to the ED for any new or concerning symptoms. - Post Discharge Activity
[2019-10-17 01:07] LABS: BASO % 0.7 % (0-2.0); EOS % 1.4 % (0-4.5); HEMATOCRIT 26.8 % (32.4-45.2); HEMOGLOBIN 9.2 GM/dL (10.7-15.3); MCH 30.5 pg (25.7-33.7); MCHC 34.2 g/dl (32.0-36.0); MEAN CELL VOLUME 89.3 fl (80-96); MEAN PLT VOLUME 8.5 fl (7.5-11.1); MONO % 14.7 % (3.8-10.2); NEUT % 66.2 % (42.8-82.8); PLATELET COUNT 244 K/MM3 (134-434); WHITE BLOOD COUNT 9.3 K/mm3 (4.0-10.0)
[2019-10-17 01:31] LABS: ALBUMIN 3.6 g/dl (3.4-5.0); BLOOD UREA NITROGEN 8.9 mg/dL (7-18); CALCIUM 8.8 mg/dL (8.5-10.1); CREATININE 0.7 mg/dL (0.55-1.3); TOT PROT 8.7 g/dl (6.4-8.2)
[2019-10-17] MEDS ORDERED: HYDROmorphone HCL CARPU-JECT 2 MG/1 ML DISP.SYRIN IVPB ONE (04:02)
--- NOTE | 2019-10-17 05:59 | PN ---
Teaching Attending Note Name of Resident: Gerson Corrales ATTENDING PHYSICIAN STATEMENT I saw and evaluated the patient. I reviewed the resident's note and discussed the case with the resident. I agree with the resident's findings and plan as documented. 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 Patient reports she was recently diagnosed with a mediastinal mass and is also undergoing work up for a mass around her liver. She has been under a lot of stress at work lately and with the change in weather her pain has been bothering her for the past 1-2 weeks. She tried to manage as an outpatient with oxycodone 30mg but sometimes avoids taking it because she is afraid it will make her drowsy while at work. Denies fever, chills, cough, chest pain, SOB, lightheadedness, syncope, nausea, vomiting, diarrhea, dysuria. Vitals stable in the ED, labs show no acute derangements from baseline. Received total of 12mg IV Dilaudid and 150mg IV Benadryl in the ED in 4 hours which has finally improved the pain to about 6/10. Also received 1L fluids. Hematology: Dr. Deirdre Pavon at [facility] OBJECTIVE: Vital Signs - 24 hr 10/16/19 10/17/19 21:03 01:00 Temperature 97 F L 97.0 F L Pulse Rate 97 H Pulse Rate [ 74 Left Apical] Respiratory 18 19 Rate Blood Pressure 119/73 Blood Pressure 105/67 [Right Arm] O2 Sat by Pulse 98 95 Oximetry (%) EXAM Gen: awake, alert, NAD CV: RRR, no MRG appreciated Resp: CTAB, unlabored Abd: Soft, NT, ND Ext: Tender knees, no focal erythema or swelling appreciated Neuro: steady gait Laboratory Results - last 24 hr 10/17/19 10/17/19 10/17/19 00:05 00:05 00:05 WBC 9.3 RBC 3.00 L Hgb 9.2 L Hct 26.8 L MCV 89.3 MCH 30.5 MCHC 34.2 RDW 20.0 H Plt Count 244 MPV 8.5 Absolute Neuts (auto) 6.2 Neutrophils % 66.2 Lymphocytes % 17.0 D Monocytes % 14.7 H Eosinophils % 1.4 Basophils % 0.7 Nucleated RBC % 1 H Retic Count 6.41 H Sodium 140 Potassium 4.0 Chloride 105 Carbon Dioxide 29 Anion Gap 6 L BUN 8.9 Creatinine 0.7 Est GFR (CKD-EPI)AfAm 133.81 Est GFR (CKD-EPI)NonAf 115.45 Random Glucose 98 Calcium 8.8 Total Bilirubin 2.0 H AST 55 H ALT 25 Alkaline Phosphatase 190 H Total Protein 8.7 H Albumin 3.6 ASSESSMENT AND PLAN: 29yoF with history of sickle cell disease s/p splenectomy, cirrhosis, portal HTN, esophageal varices, portal vein thrombosis, and 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 Acute sickle cell pain Presenting with her typical pain characteristics, unable to control at home with oral meds No evidence of acute chest or signs/sx of underlying infection - Dilaudid 4mg q4h, benadryl PRN - maintenance fluids, encourage PO hydration - continue hydroxyurea - check UA, urine Chronic, stable: h/o numerous thromboses: continue Eliquis Esophageal varices: continue propranolol DVT ppx: continue Eliquis
--- NOTE | 2019-10-17 06:44 | HP ---
CHIEF COMPLAINT: Pt is a 29 year old female with a pmhx of sickle cell disease s/p splenectomy, cirrhosis, portal HTN, esophageal varices, portal vein thrombosis, and multiple atrial thromboses on Eliquis presenting to the ED with back and knee pain that began while she was at work today. Pt describes the pain as localized to the back and knee, achy, without any radiation outside these points. Pt denies any associated numbness, tingling, or history of trauma. Pt states this is similar to past episodes of her pain episodes related to SCD. Pt was admitted previously on 09/18 and treated with Dilaudid 6mg q4 and continue her home hydroxyurea for SCD management. In the ED, pt received 12mg of dilaudid total. Still complaints of pain. Pt also admits to occipital region headache. Pt denies any CP, SOB, f/c, n/v, diarrhea, constipation. Hematology: Dr. Deirdre Pavon at [facility] PAST MEDICAL HISTORY: As stated above PAST SURGICAL HISTORY: Splenectomy, appendectomy, cholecystectomy, . Social History: Smoking: Denies Alcohol: Denies Drugs: Denies Allergies morphine Allergy (Verified 10/16/19 21:07) HOME MEDICATIONS: Home Medications Medication Instructions Recorded Folic Acid 2 mg PO DAILY 04/26/16 Hydroxyurea [Hydrea] 500 mg PO BID 04/26/16 Apixaban [Eliquis] 5 mg PO BID 04/13/19 oxyCODONE HCL [Oxycodone HCl] 30 mg PO Q4H PRN 04/13/19 Propranolol HCl 40 mg PO HS 09/19/19 REVIEW OF SYSTEMS CONSTITUTIONAL: Absent: fever, chills, diaphoresis, generalized weakness, malaise, loss of appetite, weight change HEENT: Absent: rhinorrhea, nasal congestion, throat pain, throat swelling, difficulty swallowing, mouth swelling, ear pain, eye pain, visual changes CARDIOVASCULAR: Absent: chest pain, syncope, palpitations, irregular heart rate, lightheadedness, peripheral edema RESPIRATORY: Absent: cough, shortness of breath, dyspnea with exertion, orthopnea, wheezing, stridor, hemoptysis GASTROINTESTINAL: Absent: abdominal pain, abdominal distension, nausea, vomiting, diarrhea, constipation, melena, hematochezia GENITOURINARY: Absent: dysuria, frequency, urgency, hesitancy, hematuria, flank pain, genital pain MUSCULOSKELETAL: Absent: myalgia, arthralgia, joint swelling Complaining of neck pain/occiptal headache ... back and neck pain similar to past presentations SKIN: Absent: rash, itching, pallor HEMATOLOGIC/IMMUNOLOGIC: Absent: easy bleeding, easy bruising, lymphadenopathy, frequent infections ENDOCRINE: Absent: unexplained weight gain, unexplained weight loss, heat intolerance, cold intolerance NEUROLOGIC: Absent: headache, focal weakness or paresthesias, dizziness, unsteady gait, seizure, mental status changes, bladder or bowel incontinence PSYCHIATRIC: Absent: anxiety, depression, suicidal or homicidal ideation, hallucinations. PHYSICAL EXAMINATION Vital Signs - 24 hr 10/16/19 10/17/19 21:03 01:00 Temperature 97 F L 97.0 F L Pulse Rate 97 H Pulse Rate [ 74 Left Apical] Respiratory 18 19 Rate Blood Pressure 119/73 Blood Pressure 105/67 [Right Arm] O2 Sat by Pulse 98 95 Oximetry (%) GENERAL: Awake, alert, and fully oriented, in no acute distress. HEAD: Normal with no signs of trauma. EYES: Pupils equal, round and reactive to light, extraocular movements intact, sclera anicteric, conjunctiva clear. No lid lag. EARS, NOSE, THROAT: Ears normal, nares patent, oropharynx clear without exudates. Moist mucous membranes. NECK: Normal range of motion, supple without lymphadenopathy, JVD, or masses. LUNGS: Breath sounds equal, clear to auscultation bilaterally. No wheezes, and no crackles. No accessory muscle use. HEART: Regular rate and rhythm, normal S1 and S2 without murmur, rub or gallop. ABDOMEN: Soft, nontender, not distended, normoactive bowel sounds, no guarding, no rebound, no masses. No hepatomegaly or splenomegaly. MUSCULOSKELETAL: Normal range of motion at all joints. No bony deformities or tenderness. No CVA tenderness. Tender knees on palpation, no focal erythema or swelling UPPER EXTREMITIES: 2+ pulses, warm, well-perfused. No cyanosis. No clubbing. No peripheral edema. LOWER EXTREMITIES: 2+ pulses, warm, well-perfused. No calf tenderness. No peripheral edema. NEUROLOGICAL: Cranial nerves II-XII intact. Normal speech. Normal gait. PSYCHIATRIC: Cooperative. Good eye contact. Appropriate mood and affect. SKIN: Warm, dry, normal turgor, no rashes or lesions noted, normal capillary refill. Laboratory Results - last 24 hr 10/17/19 10/17/19 10/17/19 00:05 00:05 00:05 WBC 9.3 RBC 3.00 L Hgb 9.2 L Hct 26.8 L MCV 89.3 MCH 30.5 MCHC 34.2 RDW 20.0 H Plt Count 244 MPV 8.5 Absolute Neuts (auto) 6.2 Neutrophils % 66.2 Lymphocytes % 17.0 D Monocytes % 14.7 H Eosinophils % 1.4 Basophils % 0.7 Nucleated RBC % 1 H Retic Count 6.41 H Sodium 140 Potassium 4.0 Chloride 105 Carbon Dioxide 29 Anion Gap 6 L BUN 8.9 Creatinine 0.7 Est GFR (CKD-EPI)AfAm 133.81 Est GFR (CKD-EPI)NonAf 115.45 Random Glucose 98 Calcium 8.8 Total Bilirubin 2.0 H AST 55 H ALT 25 Alkaline Phosphatase 190 H Total Protein 8.7 H Albumin 3.6 ASSESSMENT/PLAN: Pt is a 29 year old female with PMHx of sickle cell disease s/p splenectomy, cirrhosis, portal HTN, esophageal varices, portal vein thrombosis, and 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 #Acute sickle cell pain -Similar to previous presentations of sickle cell pain, located in knees and back, no chest sx -Dilaudid 4mg q4 with breakthrough 2mg -Benadryl q4 -Continued on home hydroxyurea 500mg BID #hx of esophageal varices -continued on home propanolol 40mg QHS #hx of thromboses -continued on home eliquis 5mg BID FEN NS 75cc monitor electrolytes sodium controlled diet PPx continued on home eliquis 5mg BID Dispo admitted to med surg for acute sickle cell pain. being treated with same regimen as previous admission - dilaudd 4mg q4 with breakthrough 2mg, continued on home hydroxyurea. Family Medical History Family History: As Documented Visit type - Emergency Visit Emergency Visit: Yes ED Registration Date: 10/17/19 Care time: The patient presented to the Emergency Department on the above date and was hospitalized for further evaluation of their emergent condition. - New Patient This patient is new to me today: No - Critical Care Critical Care patient: No ATTENDING PHYSICIAN STATEMENT I saw and evaluated the patient. I reviewed the resident's note and discussed the case with the resident. I agree with the resident's findings and plan as documented. SUBJECTIVE: OBJECTIVE: ASSESSMENT AND PLAN:
[2019-10-17] MEDS ORDERED: HYDROmorphone HCl 2 MG/ML VIAL IVPB PRN (06:55)
[2019-10-17] MEDS ORDERED: SODIUM CHLORIDE 1,000 ML IV SCH ×2 (07:00→10:38)
[2019-10-17] MEDS ORDERED: HYDROmorphone HCl 2 MG/ML VIAL IVPB SCH ×2 (07:00→09:46)
--- NOTE | 2019-10-17 09:48 | HOSP ---
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 pt c/o pain med ordered is not working for her crisis, pt aware pain med can not be pushed, can only be given IVPB, pt still in pain asking for 6mg, previous admission from 2 weeks ago, pt received 6mg IVPB. #Acute sickle cell pain -Similar to previous presentations of sickle cell pain, located in knees and back, no chest sx -Dilaudid 6mg q4 with breakthrough 2mg -Benadryl 50mg Q4hr -Continued on home hydroxyurea 500mg BID #hx of esophageal varices -continued on home propanolol 40mg QHS #hx of thromboses -continued on home eliquis 5mg BID FEN NS 75cc monitor electrolytes sodium controlled diet PPx continued on home eliquis 5mg BID Dispo:requires inpatient treatment
[2019-10-17] MEDS ORDERED: FOLIC ACID 1 MG TABLET (FP) ONE (11:08)
[2019-10-17] MEDS ORDERED: APIXABAN 5 MG TABLET ONE (11:08)
[2019-10-17] MEDS: APIXABAN 5 MG TABLET PO SCH ×2 (11:09→23:00)
[2019-10-17] MEDS: FOLIC ACID 1 MG TABLET (FP) PO SCH (11:10)
[2019-10-17] MEDS: HYDROXYUREA 500 MG CAPSULE PO SCH ×2 (11:11→23:00)
[2019-10-17] MEDS: HYDROmorphone HCl 2 MG/ML VIAL IVPB SCH ×4 (11:31→23:03)
--- NOTE | 2019-10-17 14:57 | EKG ---
Test Reason : Blood Pressure : / mmHG Vent. Rate : 075 BPM Atrial Rate : 075 BPM P-R Int : 194 ms QRS Dur : 088 ms QT Int : 410 ms P-R-T Axes : 032 055 043 degrees QTc Int : 457 ms SINUS RHYTHM WITH MARKED SINUS ARRHYTHMIA OTHERWISE NORMAL ECG WHEN COMPARED WITH ECG OF 30-SEP-2019 23:08, NO SIGNIFICANT CHANGE WAS FOUND Confirmed by George Jose ([id number]) on 10/17/2019 2:57:27 PM Referred By: Confirmed By:George Jose
[2019-10-17] MEDS: SODIUM CHLORIDE 1,000 ML IV SCH ×2 (16:40→18:00)
[2019-10-18 03:52] VITALS: TEMP 98.3
[2019-10-18] MEDS: HYDROmorphone HCl 2 MG/ML VIAL IVPB SCH ×2 (03:53→07:40)
--- NOTE | 2019-10-18 08:00 | DS ---
Physical Exam: SUBJECTIVE: Patient seen and examined, pt feeling better, denies sob, chest pain, dizziness, headache pt has apt with Heme this week, medically stable for dc OBJECTIVE: Vital Signs Period Temp Pulse Resp BP Sys/Thompson Pulse Ox Last 24 Hr 98.0 F-98.3 F 82-98 18-18 102-139/53-76 97-100 PHYSICAL EXAM GENERAL: The patient is awake, alert, and fully oriented, in no acute distress. HEAD: Normal with no signs of trauma. EYES: PERRL, extraocular movements intact, sclera anicteric, conjunctiva clear. ENT: Ears normal, nares patent, oropharynx clear without exudates, moist mucous membranes. NECK: Trachea midline, full range of motion, supple. LUNGS: Breath sounds equal, clear to auscultation bilaterally, no wheezes, no crackles, no accessory muscle use. HEART: Regular rate and rhythm, S1, S2 without murmur, rub or gallop. ABDOMEN: Soft, nontender, nondistended, normoactive bowel sounds, no guarding, no rebound, no hepatosplenomegaly, no masses. EXTREMITIES: 2+ pulses, warm, well-perfused, no edema. NEUROLOGICAL: Cranial nerves II through XII grossly intact. Normal speech, gait not observed. PSYCH: Normal mood, normal affect. SKIN: Warm, dry, normal turgor, no rashes or lesions noted. 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 #Acute sickle cell pain-improved -Similar to previous presentations of sickle cell pain, located in knees and back, no chest sx -Dilaudid 6mg q4 with breakthrough 2mg -Benadryl 50mg Q4hr -Continued on home hydroxyurea 500mg BID #hx of esophageal varices -continued on home propanolol 40mg QHS #hx of thromboses -continued on home eliquis 5mg BID Minutes to complete discharge: 30 Discharge Summary Problems reviewed: Yes Reason For Visit: SICKLE CELL DISEASE Current Active Problems Sickle cell crisis (Acute) - Instructions Diet, Activity, Other Instructions: please follow up with Hematology early next week - Home Medications Comprehensive Discharge Medication List: Ambulatory Orders Folic Acid 2 mg PO DAILY 04/26/16 Hydroxyurea [Hydrea] 500 mg PO BID 04/26/16 Apixaban [Eliquis] 5 mg PO BID 04/13/19 oxyCODONE HCL [Oxycodone HCl] 30 mg PO Q4H PRN 04/13/19 Propranolol HCl 40 mg PO HS 09/19/19 This patient is new to me today: No Emergency Visit: Yes ED Registration Date: 10/17/19 Care time: The patient presented to the Emergency Department on the above date and was hospitalized for further evaluation of their emergent condition. Critical Care patient: No - Discharge Referral Referred to [facility] No
[2019-10-18] MEDS: FOLIC ACID 1 MG TABLET (FP) PO SCH (08:50)
[2019-10-18] MEDS: HYDROXYUREA 500 MG CAPSULE PO SCH (08:50)
[2019-10-18] MEDS: APIXABAN 5 MG TABLET PO SCH (09:07)
[2019-10-18 09:30] VITALS: BP 130/70; PULSE 88
[2019-10-18 11:34] LABS: EPI CELLS 22 /uL (0-25.1); HYALINE CASTS 1 /uL (0-3.1); PH,URINE 5.5 (5.0-8.0); URINE APPEARANCE CLEAR; URINE BACTERIA 901 /uL (0-1359); URINE BILIRUBIN NEGATIVE (NEGATIVE); URINE COLOR YELLOW; URINE GLUCOSE (UA) NEGATIVE (NEGATIVE); URINE KETONE NEGATIVE (NEGATIVE); URINE LEUK ESTERASE TRACE (NEGATIVE); URINE NITRITE NEGATIVE (NEGATIVE); URINE PROTEIN NEGATIVE (NEGATIVE); URINE RBC 11 /uL (0-23.9); URINE WBC 17 /uL (0-25.8)
== END 2019-10-18 09:30 | disposition home or self-care (01) | DRG 812 ==
LOC: JER 20:55 → JERBED 10-17 06:37 → J6S 10-17 20:36
PROVIDERS: ADMIT Hospitalist; ATTEND Nurse Practitioner Family
DX: D57.00 Hb-SS disease with crisis, unspecified (principal); K76.6 Portal hypertension; I85.00 Esophageal varices without bleeding; K76.89 Other specified diseases of liver; K74.60 Unspecified cirrhosis of liver; M25.562 Pain in left knee; M25.561 Pain in right knee; M54.9 Dorsalgia, unspecified
CPT/HCPCS: 36415; 80053; 81003; 85025; 85045; 93005; 93010; 99285-25; J8999

== ENCOUNTER 2019-11-02 17:12 | Emergency (ER) | payer OTHER ==
[2019-11-02] MEDS ORDERED: SODIUM CHLORIDE 1,000 ML IV STA (17:27)
--- NOTE | 2019-11-02 17:28 | PDOC ---
Rapid Medical Evaluation Medical Evaluation: Allergies Allergy/AdvReac Type Severity Reaction Status Date / Time morphine Allergy Verified 10/16/19 21:07 11/02/19 17:22 Pt with PMH of sickle cell, liver disorder, clots on eliquis, presents in pain crisis. States the symptoms started on Saturday. Pt taking hydroxyurea as directed. States she had endoscopy last week. States she has RUQ pain and back pain Exam: TTP RUQ Orders: labs, pt has a port, defer imaging to provider Pt to proceed tot he ER for further evaluation Discharge Disposition - Diagnosis Sickle cell crisis, RUQ pain - Referrals - Patient Instructions - Post Discharge Activity
[2019-11-02 17:42] VITALS: BMI 37.5
--- NOTE | 2019-11-02 18:22 | PDOC ---
Documentation entered by Yanelis Swain SCRIBE, acting as scribe for Lilly Chilel MD. Lilly Chilel MD: This documentation has been prepared by the Wiliam bell Brenda, SCRIBE, under my direction and personally reviewed by me in its entirety. I confirm that the documentation accurately reflects all work, treatment, procedures, and medical decision making performed by me. Attending Attestation - Resident Resident Name: Misha Kincaid - ED Attending Attestation I have performed the following: I have examined & evaluated the patient, The case was reviewed & discussed with the resident, I agree w/resident's findings & plan, Exceptions are as noted - HPI HPI: 11/02/19 18:18 This 29 yo female with Sickle cell disease p/w ruq discomfort for several days. On SaturdayOct 22 she had endoscopy and liver biopsy and then about 4 days ago started to have some abdominal pain - Physicial Exam PE: 11/02/19 18:35 Alert 29 yo female p/w ruq discomfort head ncat neck supple lungs cta b/l cvs [id number] abdomen no rebound skin warm and dry neuro axox3,ambulatory 11/02/19 18:36 - Medical Decision Making 11/02/19 22:40 Abdomen/pelvis CT angiography (without and with contrast) Clinical information: evaluate for liver infarct; status post procedure Multiplanar, multiphase imaging was performed following the intravenous bolus administration of nonionic contrast in addition to preliminary noncontrast scanning. No evidence of pneumoperitoneum, abscess, free intraperitoneal fluid or bowel obstruction. There is no evidence of intraparenchymal or intraperitoneal hemorrhage. In comparison to a prior CT exam of 10/01/2019 note is again made of chronic portal vein thrombosis with numerous collateral vessels within the brian hepatis. There is also evidence of chronic thrombosis involving several small intrahepatic portal venous branches. The inferior vena cava and hepatic veins appear patent. Status post splenectomy and cholecystectomy as on the prior exam. A small amount of intrahepatic and extrahepatic biliary tract air is seen which appears mildly increased since the previous exam. This latter finding is probably a post procedural basis and less likely due to gas-forming infection. The hepatic artery appears patent. There is no CT evidence of hepatic infarction. The pancreas, adrenal glands and kidneys demonstrate no discrete pathology. There is no aortic aneurysm. The right hepatic lobe appears to demonstrate moderate atrophy as on the previous exam. There is probable hypertrophy of the left hepatic lobe. Mild retroperitoneal lymphadenopathy is again seen. The appendix is not definitely visualized. No obvious indirect CT signs of acute appendicitis are noted. There is no CT evidence of acute diverticulitis. No gross small bowel pathology is noted allowing for lack of intraluminal contrast. A small amount of soft tissue stranding is again seen within the right paracolic space adjacent to the cecum. The urinary bladder appears mildly overdistended. Several lumbar vertebral bodies demonstrate a biconcave appearance consistent with known sickle cell disease. Impression: No CT evidence of intra-abdominal hemorrhage or hepatic infarction. As on a previous exam of 10/01/2019 note is made of chronic portal vein thrombosis with numerous collateral vessels along the brian hepatis. Status post splenectomy as on the prior exam. Status post cholecystectomy also as on the prior exam. A small amount of pneumobilia is noted which appears mildly increased since the previous exam probably on a postprocedural basis. A gas-forming infection/cholangitis is less likely. Clinical/laboratory correlation is suggested. Mild retroperitoneal adenopathy is again seen. Correlation with 3 month follow- up CT or MRI is suggested to document stability. The urinary bladder appears mildly overdistended which could be on a physiologic basis (versus mild/early retention). Correlate clinically. Moderate colonic fecal retention. 11/02/19 23:14 pt has no fever,no chest pain and no shortness of breath cta abdomen NEGATIVE for hepatic infarction labs reviewed /pt given pain meds and discharged when her pain resolved Discharge - Discharge Information Problems reviewed: Yes Clinical Impression/Diagnosis: Sickle cell crisis, RUQ pain Condition: Stable Disposition: HOME - Follow up/Referral - Patient Discharge Instructions Patient Printed Discharge Instructions: DI for Abdominal Pain-Adult Additional Instructions: You came to the ED with a sickle-cell pain crisis and right upper quadrant pain. We conducted a CTA, kike your bloodwork, and gave you pain medication. Please follow up with your GI doctor within 2 days of leaving the ED and come back with any recurrent or more severe symptoms. - Post Discharge Activity
[2019-11-02] MEDS ORDERED: HYDROmorphone HCL CARPU-JECT 2 MG/1 ML DISP.SYRIN IVPUSH ONE ×3 (19:19→21:57)
[2019-11-02] MEDS ORDERED: LACTATED RINGERS SOLUTION 1000 ML INFUS.BAG IV ONE (19:21)
[2019-11-02] MEDS ORDERED: HYDROmorphone HCl 2 MG/ML VIAL ONE ×3 (19:33→22:35)
[2019-11-02 20:25] LABS: BASO % 1.6 % (0-2.0); HEMATOCRIT 27.2 % (32.4-45.2); HEMOGLOBIN 9.4 GM/dL (10.7-15.3); LYMPH % 21.9 % (8-40); MCH 30.7 pg (25.7-33.7); MCHC 34.7 g/dl (32.0-36.0); MEAN CELL VOLUME 88.3 fl (80-96); MEAN PLT VOLUME 8.6 fl (7.5-11.1); MONO % 15.3 % (3.8-10.2); NEUT % 60.2 % (42.8-82.8); PLATELET COUNT 270 K/MM3 (134-434); RBC 3.08 M/mm3 (3.60-5.2); RDW 20.6 % (11.6-15.6); RETICULOCYTES 8.17 % (0.5-1.5)
[2019-11-02 20:31] LABS: INR 1.04 (0.83-1.09); PROTHROMBIN TIME (PATIENT) 12.3 SEC (9.7-13.0)
[2019-11-02 20:51] LABS: ALBUMIN 3.7 g/dl (3.4-5.0); BILIRUBIN,TOTAL 2.1 mg/dL (0.2-1); BLOOD UREA NITROGEN 9.9 mg/dL (7-18); CALCIUM 8.6 mg/dL (8.5-10.1); CREATININE 0.8 mg/dL (0.55-1.3); POTASSIUM 4.1 mmol/L (3.5-5.1); TOT PROT 8.9 g/dl (6.4-8.2)
[2019-11-02 21:31] LABS: ANISOCYTOSIS 2+; SICKELED CELLS 1+; TARGET CELLS 2+
[2019-11-02 21:32] LABS: PLATELET ESTIMATE ADEQUATE
--- NOTE | 2019-11-02 22:47 | PDOC ---
History of Present Illness - General Chief Complaint: Pain Stated Complaint: SICKLE CELL Time Seen by Provider: 11/02/19 17:32 - History of Present Illness Initial Comments: 11/05/19 12:11 29yo F w/ PMHx SCD, portal vein thrombosis, cholecystecomy, cirrhosis, recent endoscopy with liver biopsy, and multiple pain crises presents w/ RUQ pain and pain in distribution of prior pain crises. Pain is constant and gnawing with no exacerbating or reliving factors. Denies recent illness, fever, rashes, cough, n/v/d, change in diet or appetite, change in bowel or bladder habits. 11/05/19 12:15 Past History - Medical History Allergies/Adverse Reactions: Allergies Allergy/AdvReac Type Severity Reaction Status Date / Time morphine Allergy Verified 11/02/19 17:37 Home Medications: Ambulatory Orders Folic Acid 2 mg PO DAILY 04/26/16 Hydroxyurea [Hydrea] 500 mg PO BID 04/26/16 Apixaban [Eliquis] 5 mg PO BID 04/13/19 oxyCODONE HCL [Oxycodone HCl] 30 mg PO Q4H PRN 04/13/19 Propranolol HCl 40 mg PO HS 09/19/19 Anemia: Yes (sickle cell) Asthma: No Cancer: No Cardiac Disorders: Yes (RIGHT ATRIAL CLOT (RESOLVED)) CVA: No COPD: No CHF: No DVT: No Diabetes: No GI Disorders: Yes (BENIGN LIVER CYST) Disorders: No HTN: Yes (Portal hypertension) Hypercholesterolemia: No Liver Disease: Yes (Cirrhosis) Seizures: No Thyroid Disease: No - Surgical History Abdominal Surgery: Yes (spleen 4 yrs old) Appendectomy: Yes Cardiac Surgery: No Cholecystectomy: Yes Lung Surgery: No Neurologic Surgery: No Orthopedic Surgery: No - Reproductive History Is Patient Now?: No - Immunization History Immunization Up to Date: No - Psycho-Social/Smoking History Smoking History: Never smoked Have you smoked in the past 12 months: No 'Breaking Loose' booklet given: 08/20/17 - Substance Abuse Hx (Audit-C & DAST Scrn) How often the patient has a drink containing alcohol: Never Score: In Men: 4 or > Positive; In Women: 3 or > Positive: 0 Screen Result (Pos requires Nsg. Audit-10AR): Negative In the last yr the pt used illegal drug/Rx for NonMed reason: No Score: Yes response is considered Positive: 0 Screen Result (Positive result requires Nsg. DAST-10): Negative Review of Systems - Review of Systems Able to Perform ROS?: Yes Is the patient limited Serbian proficient: No Constitutional: Yes: Malaise. No: Chills, Diaphoresis, Fever HEENTM: No: Blurred Vision, Recent change in vision Respiratory: No: Symptoms reported, Cough, Shortness of Breath Cardiac (ROS): No: Chest Pain, Irregular Heart Rate, Lightheadedness ABD/GI: Yes: Other (RUQ discomfort). No: Nausea, Vomiting : No: Symptoms Reported, Dysuria, Discharge, Hematuria Musculoskeletal: Yes: Back Pain (consistent w/ prior episodes of pain crises. ) Integumentary: No: Bruising, Rash Neurological: No: Headache, Numbness Psychiatric: No: Change in Appetite Endocrine: No: Excessive Sweating, Unexplained Weight Loss Hematologic/Lymphatic: Yes: Anemia All Other Systems: Reviewed and Negative *Physical Exam - Vital Signs Last Vital Signs Temp Pulse Resp BP Pulse Ox 98.7 F 102 H 18 111/63 100 11/02/19 17:15 11/02/19 17:15 11/02/19 17:15 11/02/19 17:15 11/02/19 17:15 - Physical Exam General Appearance: Yes: Nourished, Appropriately Dressed, Apparent Distress (looks uncomfortable) HEENT: positive: EOMI, RANULFO, Normal Voice Neck: positive: Trachea midline. negative: Lymphadenopathy (R), Lymphadenopathy (L) Respiratory/Chest: positive: Lungs Clear, Normal Breath Sounds. negative: Respiratory Distress Cardiovascular: positive: Regular Rhythm, Tachycardia Gastrointestinal/Abdominal: positive: Normal Bowel Sounds, Tender (RUQ). negative: Distended, Guarding Musculoskeletal: positive: Normal Inspection. negative: CVA Tenderness Extremity: positive: Normal Capillary Refill, Normal Inspection, Normal Range of Motion Integumentary: positive: Normal Color, Dry, Warm Neurologic: positive: Fully Oriented, Alert, Normal Response, Motor Strength 5/5 ED Treatment Course - LABORATORY CBC & Chemistry Diagram: 11/02/19 19:55 11/02/19 19:55 - ADDITIONAL ORDERS Additional order review: Laboratory Results 11/02/19 11/02/19 11/02/19 19:55 19:55 19:55 PT with INR 12.30 INR 1.04 Sodium Potassium Chloride Carbon Dioxide Anion Gap BUN Creatinine Est GFR (CKD-EPI)AfAm Est GFR (CKD-EPI)NonAf Random Glucose Lactic Acid 0.6 Calcium Total Bilirubin AST ALT Alkaline Phosphatase Total Protein Albumin Lipase Serum , Qual Negative 11/02/19 19:55 PT with INR INR Sodium 137 Potassium 4.1 Chloride 105 Carbon Dioxide 28 Anion Gap 5 L BUN 9.9 Creatinine 0.8 Est GFR (CKD-EPI)AfAm 113.86 Est GFR (CKD-EPI)NonAf 98.24 Random Glucose 94 Lactic Acid Calcium 8.6 Total Bilirubin 2.1 H AST 69 H ALT 28 Alkaline Phosphatase 163 H Total Protein 8.9 H Albumin 3.7 Lipase 37 L Serum , Qual 11/02/19 19:55 RBC 3.08 L MCV 88.3 MCHC 34.7 RDW 20.6 H MPV 8.6 Neutrophils % 60.2 Lymphocytes % 21.9 D Monocytes % 15.3 H Eosinophils % 1.0 Basophils % 1.6 - RADIOLOGY Radiology Studies Ordered: Category Date Time Status ABDOMEN/PELVIS CTA W/WO CONTR [CT] Stat CT Scan 11/02/19 20:57 Completed - Medications Given in the ED: ED Medications Discontinued Medications Generic Name Dose Route Start Last Admin Trade Name Freq PRN Reason Stop Dose Admin Diphenhydramine HCl 50 mg 11/02/19 19:20 11/02/19 20:00 Benadryl Injection - IVPUSH 11/02/19 19:21 50 mg ONCE ONE Administration Hydromorphone HCl 2 mg 11/02/19 19:19 11/02/19 20:00 Dilaudid Injection - IVPUSH 11/02/19 19:20 2 mg ONCE ONE Administration Hydromorphone HCl 2 mg 11/02/19 20:16 11/02/19 20:37 Dilaudid Injection - IVPUSH 11/02/19 20:17 2 mg ONCE ONE Administration Lactated Ringer's 1,000 ml 11/02/19 19:21 11/02/19 20:00 Lactated Ringers Solution IV 11/02/19 19:22 1,000 ml ONCE ONE Administration Medical Decision Making - Medical Decision Making 11/05/19 12:28 Pt has presented to this ED multiple times in the past, demanding 6mg dilaudid IVpush + 150-200mg benadryl IVPush. Discharge - Discharge Information Problems reviewed: Yes Clinical Impression/Diagnosis: Sickle cell crisis, RUQ pain Condition: Stable Disposition: HOME - Admission No - Follow up/Referral - Patient Discharge Instructions Patient Printed Discharge Instructions: DI for Abdominal Pain-Adult Additional Instructions: You came to the ED with a sickle-cell pain crisis and right upper quadrant pain. We conducted a CTA, kike your bloodwork, and gave you pain medication. Please follow up with your GI doctor within 2 days of leaving the ED and come back with any recurrent or more severe symptoms. - Post Discharge Activity
[2019-11-02 23:05] VITALS: BP 120/72; PULSE 88; TEMP 98.4
== END 2019-11-02 23:39 | disposition home or self-care (01) ==
LOC: JER 17:12
PROC: 3E033NZ Introduction of Analgesics, Hypnotics, Sedatives into Peripheral Vein, Percutaneous Approach (ICD-10-PCS; principal; 2019-11-02)
PROC: 3E033GC Introduction of Other Therapeutic Substance into Peripheral Vein, Percutaneous Approach (ICD-10-PCS; 2019-11-02)
PROC: 3E0337Z Introduction of Electrolytic and Water Balance Substance into Peripheral Vein, Percutaneous Approach (ICD-10-PCS; 2019-11-02)
DX: D57.219 Sickle-cell/Hb-C disease with crisis, unspecified (principal); R10.11 Right upper quadrant pain
CPT/HCPCS: 36415; 71045-TC-FY; 74174-TC; 80053; 83605; 83690; 84703; 85025; 85045; 85610; 99285-25

== ENCOUNTER 2019-11-11 23:48 | Inpatient (IN) | payer OTHER ==
[2019-11-12 00:15] VITALS: BMI 37.3
[2019-11-12] MEDS ORDERED: HYDROmorphone HCL CARPU-JECT 2 MG/1 ML DISP.SYRIN IVPUSH ONE ×4 (00:17→10:15)
[2019-11-12] MEDS ORDERED: SODIUM CHLORIDE 1,000 ML IV STA (00:17)
[2019-11-12] MEDS ORDERED: ONDANSETRON 4 MG/2 ML VIAL IVPUSH ONE (00:22)
--- NOTE | 2019-11-12 00:22 | PDOC ---
History of Present Illness - General Chief Complaint: Sickle Cell Crisis Stated Complaint: SICKLE CELL EMERGENCY Time Seen by Provider: 11/12/19 00:03 History Source: Patient, Old Records Exam Limitations: No Limitations - History of Present Illness Initial Comments: 11/12/19 01:03 HISTORY OF PRESENT ILLNESS: 29-year-old woman past medical history of sickle cell disease well-known to this emergency department presents today with pain in her lower back radiating to her legs. Patient states the pain is a sharp stabbing sensation rated 10/10 describes that this is her usual sickle cell crisis pain. She is unable to identify any inciting factors denies any fevers. No recent travel or sick contacts. PAST MEDICAL HISTORY: Sickle cell disease SURGICAL HISTORY: Denies ALLERGIES: Morphine REVIEW OF SYSTEMS General/Constitutional: Denies fever or chills. Denies weakness, weight change. HEENT: Denies change in vision. Denies ear pain or discharge. Denies sore throat. Cardiovascular: Denies chest pain or shortness of breath. Respiratory: Denies cough, wheezing, or hemoptysis. Gastrointestinal: Denies nausea, vomiting, diarrhea or constipation. Denies rectal bleeding. Genitourinary: Denies dysuria, frequency, or change in urination. Musculoskeletal: See HPI Skin and breasts: Denies rash or easy bruising. Neurologic: Denies headache, vertigo, loss of consciousness, or loss of sensation. Psychiatric: Denies depression or anxiety. Endocrine: Denies increased thirst. Denies abnormal weight change. Hematologic/Lymphatic: Denies anemia, easy bleeding, or history of blood clots. Allergic/Immunologic: Denies hives or skin allergy. Denies latex allergy. PHYSICAL EXAM General Appearance: Well-appearing, appropriately dressed. No apparent distress, no intoxication. HEENT: EOMI, PERRLA, normal ENT inspection, normal voice, TMs normal, pharynx normal. No conjunctival pallor. No photophobia, scleral icterus. Neck: Supple. Trachea midline. No tenderness, rigidity, carotid bruit, stridor, lymphadenopathy, or thyromegaly. Respiratory/Chest: Lungs CTAB. No shortness of breath, chest tenderness, respiratory distress, accessory muscle use. No crackles, rales, rhonchi, stridor, wheezing, dullness Cardiovascular: RRR. S1, S2. No JVD, murmur, bradycardia, tachycardia. Vascular Pulses: Dorsalis-Pedis (R): 2+, Dorsalis-Pedis (L): 2+ Gastrointestinal/Abdominal: Normal bowel sounds. Abdomen soft, non-distended. No tenderness or rebound tenderness. No organomegaly, pulsatile mass, guarding, hernia, hepatomegaly, splenomegaly. Lymphatic: No adenopathy, tenderness. Musculoskeletal/Extremities: Normal inspection. FROM of all extremities, normal capillary refill. Pelvis Stable. No CVA tenderness. No tenderness to extremities, pedal edema, swelling, erythema or deformity. Integumentary: Appropriate color, dry, warm. No cyanosis, erythema, jaundice or rash Neurologic: fbi field agent II-XII intact. Fully oriented, alert. Appropriate mood/affect. Motor strength 5/5. No appreciable EOM palsy, facial droop or sensory deficit. Past History - Medical History Allergies/Adverse Reactions: Allergies Allergy/AdvReac Type Severity Reaction Status Date / Time morphine Allergy Verified 11/02/19 17:37 Home Medications: Ambulatory Orders Folic Acid 2 mg PO DAILY 04/26/16 Hydroxyurea [Hydrea] 500 mg PO BID 04/26/16 Apixaban [Eliquis] 5 mg PO BID 04/13/19 oxyCODONE HCL [Oxycodone HCl] 30 mg PO Q4H PRN 04/13/19 Propranolol HCl 40 mg PO HS 09/19/19 Anemia: Yes (sickle cell) Asthma: No Cancer: No Cardiac Disorders: Yes (RIGHT ATRIAL CLOT (RESOLVED)) CVA: No COPD: No CHF: No DVT: No Diabetes: No GI Disorders: Yes (BENIGN LIVER CYST) Disorders: No HTN: Yes (Portal hypertension) Hypercholesterolemia: No Liver Disease: Yes (Cirrhosis) Seizures: No Thyroid Disease: No - Surgical History Abdominal Surgery: Yes (spleen 4 yrs old) Appendectomy: Yes Cardiac Surgery: No Cholecystectomy: Yes Lung Surgery: No Neurologic Surgery: No Orthopedic Surgery: No - Reproductive History Is Patient Now?: No (unknown) - Immunization History Immunization Up to Date: No - Psycho-Social/Smoking History Smoking History: Unknown if ever smoked Have you smoked in the past 12 months: No 'Breaking Loose' booklet given: 08/20/17 - Substance Abuse Hx (Audit-C & DAST Scrn) How often the patient has a drink containing alcohol: Never Score: In Men: 4 or > Positive; In Women: 3 or > Positive: 0 Screen Result (Pos requires Nsg. Audit-10AR): Negative *Physical Exam - Vital Signs Last Vital Signs Temp Pulse Resp BP Pulse Ox 98.3 F 100 H 20 125/68 95 11/12/19 00:12 11/12/19 00:12 11/12/19 00:12 11/12/19 00:12 11/12/19 00:12 ED Treatment Course - LABORATORY CBC & Chemistry Diagram: 11/12/19 03:50 11/12/19 03:50 Medical Decision Making - Medical Decision Making 11/12/19 01:09 A/P: 29-year-old woman with sickle cell crisis Labs including reticulocyte count Dilaudid 4 mg IV push Normal saline 1 L IV bolus Zofran 4 mg IV push Benadryl 50 mg IV push Reassess Discharge - Discharge Information Problems reviewed: Yes Clinical Impression/Diagnosis: Sickle cell crisis Condition: Good Disposition: HOME - Follow up/Referral - Patient Discharge Instructions - Post Discharge Activity
[2019-11-12] MEDS ORDERED: HYDROmorphone HCl 2 MG/ML VIAL ONE ×3 (01:03→08:16)
--- NOTE | 2019-11-12 02:06 | PDOC ---
*Physical Exam - Vital Signs Last Vital Signs Temp Pulse Resp BP Pulse Ox 98.3 F 100 H 20 125/68 95 11/12/19 00:12 11/12/19 00:12 11/12/19 00:12 11/12/19 00:12 11/12/19 00:12 ED Treatment Course - LABORATORY CBC & Chemistry Diagram: 11/12/19 03:50 11/12/19 03:50 - Medications Given in the ED: ED Medications Discontinued Medications Generic Name Dose Route Start Last Admin Trade Name Elvis PRN Reason Stop Dose Admin Diphenhydramine HCl 25 mg 11/12/19 00:16 11/12/19 01:30 Benadryl Injection - IVPUSH 11/12/19 00:17 25 mg ONCE ONE Administration Hydromorphone HCl 4 mg 11/12/19 00:17 11/12/19 01:40 Dilaudid Injection - IVPUSH 11/12/19 00:18 4 mg ONCE ONE Administration Sodium Chloride 1,000 mls @ 1,000 mls/hr 11/12/19 00:17 11/12/19 01:45 Normal Saline - IV 11/12/19 01:16 1,000 mls/hr ASDIR STA Administration Ondansetron HCl 4 mg 11/12/19 00:22 11/12/19 01:30 Zofran Injection IVPUSH 11/12/19 00:23 4 mg ONCE ONE Administration Medical Decision Making - Medical Decision Making 29F w/hx sickle cell disease p/w acute onset pain c/w sickle cell crisis, without chest pain or signs of acute chest syndrome. Plan for repeat pain control with dilaudid, benadryl. Will admit if pain is not able to be controlled. 11/12/19 05:58 Discussed with patient. She reports that pain has not improved significantly and does not feel well enough to go home. Plan for admission for intractable pain secondary to sickle cell crisis. --- Patient admitted to med/surg under Dr. Solorio. Discharge - Discharge Information Problems reviewed: Yes Clinical Impression/Diagnosis: Sickle cell crisis Condition: Stable Disposition: HOME - Admission No - Follow up/Referral - Patient Discharge Instructions - Post Discharge Activity
[2019-11-12] MEDS ORDERED: HYDROmorphone HCL CARPU-JECT 2 MG/1 ML DISP.SYRIN IVPB ONE ×2 (03:24→05:44)
[2019-11-12 04:50] LABS: ALBUMIN 3.6 g/dl (3.4-5.0); BLOOD UREA NITROGEN 7.6 mg/dL (7-18); CALCIUM 8.5 mg/dL (8.5-10.1); CREATININE 0.7 mg/dL (0.55-1.3); POTASSIUM 4.1 mmol/L (3.5-5.1); TOT PROT 8.6 g/dl (6.4-8.2)
[2019-11-12 05:05] LABS: HEMATOCRIT 26.6 % (32.4-45.2); HEMOGLOBIN 9.1 GM/dL (10.7-15.3); MCH 30.2 pg (25.7-33.7); MCHC 34.3 g/dl (32.0-36.0); MEAN PLT VOLUME 8.6 fl (7.5-11.1); PLATELET COUNT 240 K/MM3 (134-434); RBC 3.02 M/mm3 (3.60-5.2); RDW 20.8 % (11.6-15.6); RETICULOCYTES 7.97 % (0.5-1.5); WHITE BLOOD COUNT 8.9 K/mm3 (4.0-10.0)
[2019-11-12 06:30] LABS: ANISOCYTOSIS 2+; MACROCYTOSIS 1+; PLATELET ESTIMATE NORMAL; SICKELED CELLS 2+
--- NOTE | 2019-11-12 06:47 | PDOC ---
*Physical Exam - Vital Signs Last Vital Signs Temp Pulse Resp BP Pulse Ox 98.3 F 85 18 113/69 99 11/12/19 00:12 11/12/19 04:05 11/12/19 04:05 11/12/19 04:05 11/12/19 04:05 ED Treatment Course - LABORATORY CBC & Chemistry Diagram: 11/12/19 03:50 11/12/19 03:50 - ADDITIONAL ORDERS Additional order review: Laboratory Results 11/12/19 11/12/19 03:50 03:50 Sodium 137 Potassium 4.1 Chloride 104 Carbon Dioxide 30 Anion Gap 3 L BUN 7.6 Creatinine 0.7 Est GFR (CKD-EPI)AfAm 133.81 Est GFR (CKD-EPI)NonAf 115.45 Random Glucose 111 H Calcium 8.5 Total Bilirubin 2.0 H AST 54 H ALT 25 Alkaline Phosphatase 205 H Total Protein 8.6 H Albumin 3.6 Serum , Qual Negative 11/12/19 03:50 RBC 3.02 L MCV 88.0 MCHC 34.3 RDW 20.8 H MPV 8.6 Neutrophils % No Result Required. Lymphocytes % No Result Required. - Medications Given in the ED: ED Medications Discontinued Medications Generic Name Dose Route Start Last Admin Trade Name Freq PRN Reason Stop Dose Admin Diphenhydramine HCl 25 mg 11/12/19 00:16 11/12/19 01:30 Benadryl Injection - IVPUSH 11/12/19 00:17 25 mg ONCE ONE Administration Diphenhydramine HCl 25 mg 11/12/19 03:25 11/12/19 04:10 Benadryl Injection - IVPUSH 11/12/19 03:26 25 mg ONCE ONE Administration Hydromorphone HCl 4 mg 11/12/19 00:17 11/12/19 01:40 Dilaudid Injection - IVPUSH 11/12/19 00:18 4 mg ONCE ONE Administration Hydromorphone HCl 4 mg 11/12/19 03:24 11/12/19 04:10 Dilaudid Injection - IVPB 11/12/19 03:25 4 mg ONCE ONE Administration Hydromorphone HCl 4 mg 11/12/19 05:44 11/12/19 06:42 Dilaudid Injection - IVPB 11/12/19 05:45 Not Given ONCE ONE Sodium Chloride 1,000 mls @ 1,000 mls/hr 11/12/19 00:17 11/12/19 01:45 Normal Saline - IV 11/12/19 01:16 1,000 mls/hr ASDIR STA Administration Ondansetron HCl 4 mg 11/12/19 00:22 11/12/19 01:30 Zofran Injection IVPUSH 11/12/19 00:23 4 mg ONCE ONE Administration Medical Decision Making - Medical Decision Making 11/12/19 06:46 Patient seen by the advanced practice provider under my supervision. Ancillary testing reviewed as necessary. I agree with plan as outlined by the advanced practice provider. Discharge - Discharge Information Problems reviewed: Yes Clinical Impression/Diagnosis: Sickle cell crisis Condition: Stable Disposition: HOME - Follow up/Referral - Patient Discharge Instructions - Post Discharge Activity
--- NOTE | 2019-11-12 08:16 | HP ---
CHIEF COMPLAINT: Pain PCP: Dr. Deirdre Pavon (Doctor Of Naprapathic Medicine) HISTORY OF PRESENT ILLNESS: Pt. is a 29 y.o. F w/ PMHx. 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 of multiple atrial thrombosis, Hx. of ACS x 10, recent diagnosis of hepatic tumor ( initial biopsy benign however going for repewat later this month), and ?mass in heart presents for painful sickle cell crises. Pt. states that she has pain in her back and her legs, right more than left. Pt. acknowledges tat she has had a lot of ER visits this year especially since August. Pt. attributes this increase to the increase in procedures since August. She has had an EGD( has one every 6 months), biopsy of liver, and PCI of heart because of ?leaking around the heart. Pt. endorses that the frequent weather changes are also associated with the painful episodes. 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 Pt. states she can no longer have blood transfusions because she has numerous antibodies and develops coca-cola colored urine. Pt. states that she follows with her rn maternity regularly in the the city and gets monthly transfusions (Nivolumab?) through her port to prevent Sickle Cell Crises. Pt. endorses 3 episodes of non-bloody diarrhea 2 days ago and one episode of non-bloody emesis on Saturday. Pt. endorses slight swelling in lower extremities R>L. Pt. denies any fever, chills, hemoptysis, melena, hematochezia, cough, shortness of breath, chest pain, numbness/tingling or weakness in extremities, or dysuria. Pt. extremely unhappy with treatment by ED staff and has stated that she has had multiple complaints on surveys in the past about these incidents. I answered all her questions and provided comfort for her insults over night. Pt. endorses being prescribed Gabapentin for her pain which she does not take because it does not work. Pt. states she takes her oxycodone every 4 hours at home after work but during the day she does not take it because she is very busy at work and has to be clear minded. Pt. states she simply tolerates the pain during work (8-10hours/ day @ 6 days a week). Pt. endorses adequate PO intake. Case discussed with Dr. Pavon who was unaware of all the ED visits however is aware of the Dilaudid dosing as she recommended it. Her last blood work was from 2 weeks ago and she has HgB S at 78%, HgB A2 at 2.9%, and HgB F at ~18%. Per review of EXTENSIVE documentation provided by Pt. from rn maternity office. Pt. has been on same pain regimen for years and is hesitant about starting long acting opioids because she works multiple jobs and the effects of the medications makes her drowsy. 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 Allergies morphine Allergy (Verified 11/02/19 17:37) HOME MEDICATIONS: Home Medications Medication Instructions Recorded Folic Acid 2 mg PO DAILY 04/26/16 Hydroxyurea [Hydrea] 500 mg PO BID 04/26/16 Apixaban [Eliquis] 5 mg PO BID 04/13/19 oxyCODONE HCL [Oxycodone HCl] 30 mg PO Q4H PRN 04/13/19 Propranolol HCl 40 mg PO HS 09/19/19 REVIEW OF SYSTEMS As above PHYSICAL EXAMINATION Vital Signs - 24 hr 11/12/19 11/12/19 00:12 04:05 Temperature 98.3 F Pulse Rate 100 H Pulse Rate [ 85 Left Radial] Respiratory 20 18 Rate Blood Pressure 125/68 Blood Pressure 113/69 [Left Arm] O2 Sat by Pulse 95 99 Oximetry (%) GENERAL: Awake, alert, and fully oriented, in acute distress 2/2 pain and mental distress. HEAD: Normal with no signs of trauma. EYES: Pupils equal, round and reactive to light, extraocular movements intact with some left eye strabismus, slight sclera icterus, conjunctiva clear. EARS, NOSE, THROAT: Moist mucous membranes. NECK: Normal range of motion LUNGS: Breath sounds equal, clear to auscultation bilaterally. No wheezes, and no crackles. No accessory muscle use. HEART: Regular rate and rhythm, normal S1 and S2 without murmur ABDOMEN: Soft, obeese, nontender, not distended, normoactive bowel sounds, no guarding MUSCULOSKELETAL: Normal range of motion at all joints. No bony deformities or tenderness, R. subclavian port UPPER EXTREMITIES: 2+ radial pulses, warm, well-perfused. No cyanosis. No clubbing. No peripheral edema. LOWER EXTREMITIES: warm, well-perfused. No calf tenderness. RLE non-pitting edema NEUROLOGICAL: No focal deficits, moves all extremities. Normal gait. PSYCHIATRIC: Cooperative. Good eye contact. Appropriate mood and affect for situation SKIN: Warm, dry, normal turgor Laboratory Results - last 24 hr 11/12/19 11/12/19 11/12/19 03:50 03:50 03:50 WBC 8.9 RBC 3.02 L Hgb 9.1 L Hct 26.6 L MCV 88.0 MCH 30.2 MCHC 34.3 RDW 20.8 H Plt Count 240 MPV 8.6 Neutrophils % No Result Required. Neutrophils % (Manual) 54.6 Band Neutrophils % 0.0 Lymphocytes % No Result Required. Lymphocytes % (Manual) 36.1 D Monocytes % (Manual) 6 D Eosinophils % (Manual) 1.0 Basophils % (Manual) 0.0 Myelocytes % (Man) 0 Promyelocytes % (Man) 0 Blast Cells % (Manual) 0 Nucleated RBC % 7 H Metamyelocytes 0 Hypochromia 0 Platelet Estimate Normal Polychromasia 2+ Poikilocytosis 2+ Anisocytosis 2+ Microcytosis 2+ Macrocytosis 1+ Sickle Cells 2+ Retic Count 7.97 H Sodium 137 Potassium 4.1 Chloride 104 Carbon Dioxide 30 Anion Gap 3 L BUN 7.6 Creatinine 0.7 Est GFR (CKD-EPI)AfAm 133.81 Est GFR (CKD-EPI)NonAf 115.45 Random Glucose 111 H Calcium 8.5 Total Bilirubin 2.0 H AST 54 H ALT 25 Alkaline Phosphatase 205 H Total Protein 8.6 H Albumin 3.6 Serum , Qual Negative ASSESSMENT/PLAN: Pt. is a 29 y.o. F w/ PMHx. of Sickle Cell Disease, cirrhosis(w/portal HTN and chronic portal vein thrombosis), esophageal varices (s/p rupture and repair), Hx. of multiple atrial thrombosis, recent diagnosis of hepatic tumor (initial biopsy benign however going for repeat later this month), and ?mass in heart presents for painful sickle cell crises that is resistant to home medication. #Sickle Cell Crises #Normocytic Anemia likely 2/2 stress, dehydration and changes in weather Anemia likely 2/2 chronic disease, and hemolysis given icterus and elevated TBili Reticulocyte count noted and appropriate; f/u Iron studies in AM c/w Dilaudud as she has had on numerous previous admission with holding parameters for low BP or bradypnea c/w Zofran PRN c/w IVF and encourage PO intake c/w Hydroxyurea 500mg BID outpatient follow up with Doctor Of Naprapathic Medicine c/w Eliquis 5mg BID c/w Folic acid c/w Propnaolol f/u air sampling and monitoring on M/S provided nothing significant on EKG Pt. requesting to leave in the afternoon to go back to work Pt. states that she updates her rn maternity each session about her hospital visits. Family Medical History Family History: As Documented Visit type - Emergency Visit Emergency Visit: Yes ED Registration Date: 11/12/19 Care time: The patient presented to the Emergency Department on the above date and was hospitalized for further evaluation of their emergent condition. - New Patient This patient is new to me today: Yes Date on this admission: 11/12/19 - Critical Care Critical Care patient: No ATTENDING PHYSICIAN STATEMENT I saw and evaluated the patient. I reviewed the resident's note and discussed the case with the resident. I agree with the resident's findings and plan as documented. SUBJECTIVE: OBJECTIVE: ASSESSMENT AND PLAN:
[2019-11-12] MEDS ORDERED: HYDROmorphone HCl 2 MG/ML VIAL IVPB ONE (09:20)
[2019-11-12] MEDS ORDERED: FOLIC ACID 1 MG TABLET (FP) PO SCH (10:00)
[2019-11-12] MEDS ORDERED: SODIUM CHLORIDE 1,000 ML IV SCH ×2 (11:00→11:16)
[2019-11-12] MEDS: HYDROXYUREA 500 MG CAPSULE PO SCH ×2 (11:30→21:15)
[2019-11-12] MEDS ORDERED: HYDROmorphone HCl 2 MG/ML VIAL IVPUSH ONE (11:30)
[2019-11-12] MEDS: APIXABAN 5 MG TABLET PO SCH ×2 (11:30→21:15)
--- NOTE | 2019-11-12 11:37 | PN ---
Teaching Attending Note Name of Resident: Lee Rivera ATTENDING PHYSICIAN STATEMENT I saw and evaluated the patient. I reviewed the resident's note and discussed the case with the resident. I agree with the resident's findings and plan as documented. SUBJECTIVE: 29yo F with h/o known sickle disease with known crises, cirrhosis and esophageal varices, portal vein thrombosis who presents today due to another sickle crisis. Patient has frequented [facility] and here multiple times per month due to her sickle needs. She also sees Dr. Harvey (bog worker in [place]) who consistently treats her with Nivolumab. She has recently undergone procedures in August for diagnosis of a hepatic lesion and esophageal varices. She will need to have another biopsy of her hepatic lesions performed in a month. Patient attributes increasing stress levels to her frequent pain crises, but would not elaborate as to the source of her stress. Upon entering she was walking around her room whilst emailing. She denies any fever/chills, chest pa in, palpitations, SOB. Otherwise conversation as limited by the patient OBJECTIVE: Vital Signs Temperature 97.8 F 11/12/19 09:00 Pulse Rate 83 11/12/19 09:00 Respiratory Rate 18 11/12/19 09:00 Blood Pressure 117/60 11/12/19 09:00 O2 Sat by Pulse Oximetry (%) 98 11/12/19 09:00 PE: Gen: NAD, awake, standing up, alert HEENT: NC/At, slightly icteric sclera, stabrismus noted, LUNG: Would not let me examine CARD: Would not let me examine ABD: Would not let me examine EXT: Would not let me examine, no overt rashing or lesions noted CBC, BMP 11/12/19 03:50 11/12/19 03:50 Hepatic Panel Total Bilirubin 2.0 mg/dL (0.2-1) H 11/12/19 03:50 AST 54 U/L (15-37) H 11/12/19 03:50 ALT 25 U/L (13-61) 11/12/19 03:50 Alkaline Phosphatase 205 U/L (45-117) H 11/12/19 03:50 Albumin 3.6 g/dl (3.4-5.0) 11/12/19 03:50 11/12/19 03:50 Retic Count 7.97 H Active Medications Apixaban (Eliquis -) 5 mg PO BID [facility] Last Admin: 11/12/19 11:30 Dose: 5 mg Documented by: Diphenhydramine HCl (Benadryl Injection -) 25 mg IVPUSH ONCE ONE Stop: 11/12/19 11:35 Last Admin: 11/12/19 11:38 Dose: 25 mg Documented by: Folic Acid (Folic Acid -) 2 mg PO DAILY [facility] Last Admin: 11/12/19 11:30 Dose: 2 mg Documented by: Hydroxyurea (Hydrea -) 500 mg PO BID [facility] Last Admin: 11/12/19 11:30 Dose: 500 mg Documented by: Sodium Chloride (Normal Saline -) 1,000 mls @ 125 mls/hr IV ASDIR [facility] Propranolol HCl (Inderal -) 40 mg PO [facility] ASSESSMENT AND PLAN: Sickle Cell Crisis with known history w/o chest crisis Cirrhosis 2/2 vasoocclusive disease with esophageal varices History of portal vein thrombosis History of CAD History of Hepatic Lesion --Reticulocyte count 7.92 --CXR reviewed --Patient taking normally 15mg Morphine IV equivalents q4h at home (total Mor phine 90mg IV equivalents); ? component of opiate-induced hyperalgesia --Patient has consistently been verbally abusive when reductions of her opiate dosing has occurred --Will continue Dilaudid 4mg IV with breakthrough on board unless specified by anesthesia or pain mgmt. --Given her high opiate dosing will consult pain management and anesthesia for TEXTILE BROKER pump for consistent and efficacious treatment in sickle disease --Increase IVF to 125cc/hr --Continue Hydroxyurea --Continue Eliquis --Dr. Rivera acquired records and discussed with Dr. Pavon (pt's home bog worker) who she received monoclonal antibody therapy for her sickle cell disease. Pt's HPI corraborated with Dr. Pavon. I discussed the plan with the patient and how it is medically recommended to stay in the hospital (due to her high retic count) and regardless to not go to work under the influence of opiates due to he administration and handling of medications. Throughout the conversation patient was verbally abusive, however able to be reoriented to have a calm and collective conversation towards her health. She was highly resistant to staying in the hospital (despite offering her a work note) and undergoing a TEXTILE BROKER despite countless attempts at telling her it would be a more consistent method of receiving opiate doses to a patient who is receiving high amounts. Upon exiting the room patient continued to yell and shouting obscenities.
[2019-11-12] MEDS ORDERED: HYDROmorphone *PCA* 10MG/50ML DISP.SYRIN PCA SCH (13:30)
[2019-11-12 14:24] LABS: BILIRUBIN,DIRECT 0.7 mg/dL (0.0-0.2)
[2019-11-12] MEDS: HYDROmorphone HCl 2 MG/ML VIAL IVPB PRN ×2 (15:07→21:04)
[2019-11-12] MEDS ORDERED: PT OWN MED DRAWER 7, Y5N ONE (20:47)
[2019-11-12 22:03] VITALS: BP 121/63; PULSE 90; TEMP 98
--- NOTE | 2019-11-13 00:10 | PN ---
Progress Note (short form) - Note Progress Note: Ms. Doan was seen for a complaint of not receiving an additional 25mg of benadryl. The patient states that the entire nursing staff and attending were all in agreement that she should get her 50mg total of benadryl. The patient became aggressive and wished to leave AMA. The patient requested a note for her to return to work and refused to sign the AMA form. The patient had left without signing the AMA form.
--- NOTE | 2019-11-13 15:46 | CONSULT ---
Consult Consult Specialty:: Interventional Spine and Pain Management. - History of Present Illness History of Present Illness: Consultation was performed on 11/12/19. The patient was in interviewed. Her HPI was verified. She has a history of sickle cell disease and states that she has had several medical procedures over the last 3 months for other health conditions which have put her under "Stress" which has caused her pain to become worse. In addition to her current low term opiate medication that she recieves from her neuro intensivist physician she states she also utilizes medcial marijuana which she was unable to get due to the pandemic. She is insistent that she recieve Dilaudid IV push. She has medical documents and a letter form her neuro intensivist physician from 2018 that recomends a treatment protocol. Throughout the conversation the patients was anxious had pressured speech and was emotionally labile. When I began to discuss the [id number] model of pain and discuss coping strategies the pateint became defensive. When I attempted to ascertain more information the she stated that "no one listens to me" despite having an 1 hour interview with the patient. Throughout the conversation the patient was standing a pacing the room explaining her history and how she should be treated medically. At the end of the interview, I explained that I would discuss with the primary team her case and make recommendations. She was unhappy with this as she stated she was due for her medications. - History Source History Provided By: Patient, Medical Record - Past Medical History ...LMP: 01/20/16 ...: No (unknown) - Alcohol/Substance Use Hx Alcohol Use: No - Smoking History Smoking history: Never smoked Have you smoked in the past 12 months: No Home Medications - Allergies Allergies/Adverse Reactions: Allergies Allergy/AdvReac Type Severity Reaction Status Date / Time morphine Allergy Verified 11/02/19 17:37 - Home Medications Home Medications: Ambulatory Orders Folic Acid 2 mg PO DAILY 04/26/16 Hydroxyurea [Hydrea] 500 mg PO BID 04/26/16 Apixaban [Eliquis] 5 mg PO BID 04/13/19 oxyCODONE HCL [Oxycodone HCl] 30 mg PO Q4H PRN 04/13/19 Propranolol HCl 40 mg PO HS 09/19/19 Physical Exam Vital Signs: Vital Signs Temperature 98.0 F 11/12/19 22:02 Pulse Rate 90 11/12/19 22:02 Respiratory Rate 18 10/01/20 22:02 Blood Pressure 121/63 11/12/19 22:02 O2 Sat by Pulse Oximetry (%) 96 11/12/19 22:02 Constitutional: Yes: Well Nourished, Anxious Eyes: Yes: Conjunctiva Clear, EOM Intact HENT: Yes: Atraumatic, Normocephalic Neck: Yes: Trachea Midline Cardiovascular: Yes: Regular Rate and Rhythm Respiratory: Yes: Regular Musculoskeletal: Yes: Back Pain Labs: CBC, BMP 11/12/19 03:50 11/12/19 03:50 Assessment/Plan The patient has history of chronic pain syndrome due to her sickle cell disease managed on intermediate designer opiates and has frequent admissions for sickle cell related pain. Recommendations: Discussed with Dr. Srinivasan I agree with SUPERVISOR QUALITY CONTROL instead of IV Push. Orders placed by [facility] of the [facility] nsult. Monitor for sedation and convert to orals once pain better controlled. In future recommend SUPERVISOR QUALITY CONTROL for future crisis. Recommend psychiatry eval as I believe pt should address all aspects of her st ress and her chronic condition. She may benefit from an adjuvant non opiate pain medication ie TCA, SSRI, SNRI's. Goal would be to manage her current crisis, convert IV opiates back to her baseline and provide follow up with her neuro intensivist physician, and psychiatry. Opiate weaning, Long acting abuse deterrent opiate analgesics, adjunctive pain medications, and behavioral health/cognitive behavioral therapy for chronic pain should be addressed. \\ Multimodal pain management as tolerated inculding topical analgesics lidocaine patch, tylenol po or IV. Thank you for your consult, Silviano Berger DO Interventional Spine and Pain Management
== END 2019-11-12 23:15 | disposition left against medical advice (07) | DRG 811 ==
LOC: JER 23:48 → JERBED 11-12 06:08 → J6S 11-12 09:10
PROVIDERS: ADMIT Internal Medicine; ATTEND Student in an Organized Health Care Education/Training Program
DX: D57.00 Hb-SS disease with crisis, unspecified (principal); I81 Portal vein thrombosis; I85.00 Esophageal varices without bleeding; I27.20 Pulmonary hypertension, unspecified; K76.89 Other specified diseases of liver; K74.60 Unspecified cirrhosis of liver; E86.0 Dehydration; D63.8 Anemia in other chronic diseases classified elsewhere; I25.10 Atherosclerotic heart disease of native coronary artery without angina pectoris; Z87.19 Personal history of other diseases of the digestive system; M79.604 Pain in right leg; M79.605 Pain in left leg; H50.9 Unspecified strabismus; H15.89 Other disorders of sclera
CPT/HCPCS: 36415; 71046-TC-FY; 80053; 82248; 83540; 83550; 84703; 85025; 85045; 99285-25; J8999

== ENCOUNTER 2019-12-14 17:19 | Emergency (ER) | payer OTHER ==
[2019-12-14 17:25] VITALS: BMI 37.5
--- NOTE | 2019-12-14 18:13 | PDOC ---
Documentation entered by Jenae Cornejo SCRIBE, acting as scribe for Lilly Chilel MD. Lilly Chilel MD: This documentation has been prepared by the juliibeClemente Ana, SCRIBE, under my direction and personally reviewed by me in its entirety. I confirm that the documentation accurately reflects all work, treatment, procedures, and medical decision making performed by me. Attending Attestation - Resident Resident Name: Imelda Grant - ED Attending Attestation I have performed the following: I have examined & evaluated the patient, The case was reviewed & discussed with the resident, I agree w/resident's findings & plan, Exceptions are as noted - HPI HPI: 12/14/19 18:12 Alert,conversant 29 yo female presents with back and knee pain that she states is her typical sickle cell pain - Physicial Exam PE: 12/14/19 18:13 head ncat neck supple eyes olinda eomi lungs cta b/l cvs [id number] abdomen nontender,no rebound, no guarding extremities no deformities, no erythema ,no calf tenderness neuro axox3,ambulating with ease,motor strength 5/5 b/l,clear speech, no facial droop, no ataxia - Medical Decision Making 12/14/19 21:15 Labs reflect chronic anemia,elevated retic count no fever 12/14/19 22:06 pt received dilaudid ad Benadryl for her pain imp Sickle cell exacerbation plan follow up with hematology Discharge - Discharge Information Problems reviewed: Yes Clinical Impression/Diagnosis: Sickle cell crisis Condition: Stable Disposition: HOME - Follow up/Referral - Patient Discharge Instructions Patient Printed Discharge Instructions: DI for Sickle Cell Anemia, Pain Crisis -- Adult Additional Instructions: You were seen in the ED for your body pains due to a sickle cell pain crisis. Your exam and blood work showed no signs of infection or other major problems at this time. Please follow-up with your primary doctor or chemical engineering technologist within the next 2-3 days for a recheck and further recommendations on management of your sickle cell disease. In the meantime, continue to use your prescribed pain medication. Please be cautious with the use of these medications, as they may result in drowsiness; please don't use these medications before driving, swimming, or any other potentially dangerous activities. Please return to the ER if you have: - pain that is not controlled with medications -weakness of any part of your body -fever of 100.4 or higher -difficulty breathing or chest pain -any other new or concerning symptoms Thank you for coming to the [facility]. We hope you feel better soon! - Post Discharge Activity
--- OUTSIDE RECORDS SUMMARY | 2019-12-14 18:27 | XMS ---
:1990 Author Organization [facility] Care Team Providers Name Role Phone Robin Lima MD Unavailable Unavailable Misha Jackson MD Unavailable Unavailable John Lomeli Unavailable Unavailable Jatinder Ibrahim MD Unavailable Unavailable MD Chuck Unavailable Unavailable Ashwin Yancey PA-C Unavailable Unavailable Avery DO Unavailable Unavailable MD Karthikeyan Unavailable Unavailable MD Víctor Unavailable Unavailable Kirk Roa MD Unavailable Unavailable MD Vishal Unavailable Unavailable MD Cris Unavailable Unavailable Alisa DO Unavailable Unavailable Slime Ortega MD Unavailable Unavailable FRITZ Melvin Unavailable Unavailable Castillo DO Unavailable Unavailable MD Liza Unavailable Unavailable MD Simon Unavailable Unavailable MD Vicente Unavailable Unavailable JUANCARLOS Verduzco Unavailable Unavailable Martin, Huber PA Unavailable Unavailable Martin, Huber PA Unavailable Unavailable Martin, Huber PA Unavailable Unavailable Martin, Huber PA Unavailable Unavailable Martin, Huber PA Unavailable Unavailable Martin, Huber PA Unavailable Unavailable Martin, Huber PA Unavailable Unavailable Martin, Huber PA Unavailable Unavailable Martin, Huber PA Unavailable Unavailable Martin, Huber PA Unavailable Unavailable Martin, Huber PA Unavailable Unavailable Martin, Huber PA Unavailable Unavailable Martin, Huber PA Unavailable Unavailable Martin, Huber PA Unavailable Unavailable Martin, Huber PA Unavailable Unavailable Martin, Huber PA Unavailable Unavailable Martin, Huber PA Unavailable Unavailable Martin, Huber PA Unavailable Unavailable Martin, Huber PA Unavailable Unavailable Martin, Huber PA Unavailable Unavailable Martin, Huber PA Unavailable Unavailable Martin, Huber PA Unavailable Unavailable Martin, Huber PA Unavailable Unavailable Martin, Huber PA Unavailable Unavailable Martin, Huber PA Unavailable Unavailable Martin, Huber PA Unavailable Unavailable Martin, Huber PA Unavailable Unavailable Martin, Huber PA Unavailable Unavailable Martin, Huber PA Unavailable Unavailable Martin, Huber PA Unavailable Unavailable Chen, DO Unavailable Unavailable Battiato, PA-C Unavailable Unavailable Arnaud, PA-C Unavailable Unavailable MD Shelbi Unavailable Unavailable MD Stefani Unavailable Unavailable MD Nadia Unavailable Unavailable MD Manoj Unavailable Unavailable MD Thomas Unavailable Unavailable Man Unavailable Unavailable Veronica Javier DO Unavailable Unavailable Nithin, MOLD HOISTER Unavailable Unavailable Re-disclosure Warning The records that you are about to access may contain information from federally- assisted alcohol or drug abuse programs. If such information is present, then the following federally mandated warning applies: This information has been disclosed to you from records protected by federal confidentiality rules (42 CFR part 2). The federal rules prohibit you from making any further disclosure of this information unless further disclosure is expressly permitted by the written consent of the person to whom it pertains or as otherwise permitted by 42 CFR part 2. A general authorization for the release of medical or other information is NOT sufficient for this purpose. The Federal rules restrict any use of the information to criminally investigate or prosecute any alcohol or drug abuse patient.The records that you are about to access may contain highly sensitive health information, the redisclosure of which is protected by Article 27-F of the [facility] Public Health law. If you continue you may haveaccess to information: Regarding HIV / AIDS; Provided by facilities licensed or operated by the [facility] Office of Mental Health; or Provided by the [facility] Office for People With Developmental Disabilities. If such information is present, then the following [facility] mandated warning applies: This information has been disclosed to you from confidential records which are protected by state law. State law prohibits you from making any further disclosure of this information without the specific written consent of the person to whom it pertains, or as otherwise permitted by law. Any unauthorized further disclosure in violation of state law may result in a fine or correction sentence or both. A general authorization for the release of medical or other information is NOT sufficient authorization for further disclosure. Allergies and Adverse Reactions Type Description Substance Reaction Status Data Source(s ) Drug allergy metoclopramide metoclopramide EILEEN [facility] Drug allergy morphine morphine PRURITUS/ITCHIN Yan[facility] Hospital Encounters Encounter Providers Location Date Indications Data Source(s ) Emergency Attender: Deb 12/08/2019 CHEST PAIN ARR Yanique Varela DOAttender: 07:27:00 PM AUTO [facility] Sheila Yancey EDT - 12/09/2019 01:45:00 AM EDT CHEST PAIN ARR AUTO Patient discharged. Emergency Attender: Huber 11/07/2019 09:42:00 SICKLE CE LL PAIN Yanique Ortega MD PM EDT - 11/08/2019 [place] [facility] 04:19:00 AM EDT [place]IN [place] Patient discharged. Emergency Attender: Girma 08/12/2019 03:33:00 SICKLE ANY L Yanique Chong DO PM EDT - 08/12/2019 [facility] 08:28:00 PM EDT SICKLE CELL CRISIS AUTO Patient discharged. Emergency Attender: Kj 08/02/2019 01:22:00 SICKLE ANY L PAIN Yanique Roa MD PM EDT - 08/02/2019 [place] [facility] 07:59:00 PM EDT SICKLE CELL [place]IN [place] Patient discharged. Emergency Attender: Girma 07/19/2019 03:34:00 SICKLE ANY L/CHEST Yanique Chong DO PM EDT - 07/19/2019 [place] [facility] 07:07:00 PM EDT SICKLE CELL/CHEST PAIN [place] Patient discharged. Emergency Attender: Huber 07/08/2019 07:06:00 SICKCELL [place] Yanique Siddiqui DO PM EDT - 07/08/2019 [id number] Hos pital 10:08:00 PM EDT SICK[place]LL [place]IS[place] [id number] Patient discharged. Emergency Attender: Girma 06/15/2019 11:29:00 SICKLE ANY L Yanique Chong DO AM EDT - 06/15/2019 [place] [facility] 02:32:00 PM EDT SICKLE CELL [place] Patient discharged. Emergency Attender: Yasir 05/22/2019 11:43:00 SICKLE CE LL Yanique Woods MD AM EDT - 05/22/2019 [facility] [facility] 04:30:00 PM EDT SICKLE CELL ARR-[place] Patient discharged. Emergency Attender: Huber 05/12/2019 04:17:00 SICKLE CE LL Yanique Mendiolana DO PM EDT [facility] Hospital AUTO SICKLE CELL CRISIS AUTO Emergency Attender: Kj 05/04/2019 11:45:00 SICKLE ANY L Yanique Roa MD AM EDT - 05/04/2019 [place] [facility] 05:19:00 PM EDT SICKLE CELL [place] Patient discharged. Emergency Attender: Jacobo 04/26/2019 12:54:00 SICKLE CELL Yanique Aranda MD PM EDT - 04/26/2019 [facility] 07:07:00 PM EDT ARR-AUTO SICKLE CELL SRISIS ARR-AUTO Patient discharged. Emergency Attender: Pritesh 04/17/2019 12:11:00 SICKLE CE LL Yanique Batistaaver PAAttender: PM EST - 04/17/2019 [facility] Misha Jackson MD 08:03:00 PM EST SICKLE CELL [place] Patient discharged. Emergency Attender: Huber 03/31/2019 SEVERE BODYACHES/C HEST Yanique Siddiqui DO 01:52:00 PM EST - PAIN/WEAKNESS - [facility] 03/31/2019 07:01:00 PM EST SEVERE BODYACHES/CHEST PAIN/WEAKNESS - [place] Patient discharged. Inpatient Attender: Calderon 03/13/2019 12:25:00 DRUG SEEKI UNIQUE Lynch MDAttender: PM EST - 03/14/2019 [facility] 12:01:00 AM EST DOAttender: Abiodun Zhang MDAdmitter: Calderon Lynch MD DRUG SEEKING Patient discharged. Emergency Attender: Jimi 02/28/2019 11:21:00 BODY AYALA N Yanique Mario MD AM EST - 02/28/2019 [facility] [facility] 06:42:00 PM EST BODY PAIN ARR-[place] Patient discharged. Emergency Attender: Gisela 02/18/2019 03:10:00 BODYACHE AUTO Yanique Ko MD AM EST - 02/18/2019 [facility] 08:57:00 AM EST BODYACHE AUTO Patient discharged. Emergency Attender: Deb Varela 02/12/2019 01:33:00 SICKL E CELL [place] DOConsultant: Kevin PM EST - 02/12/2019 [place] Megan Weller NP 07:19:00 PM EST SICKLE CELL [place] Patient discharged. Inpatient Attender: Lorri Rodgers 01/26/2019 09:22:00 A M T'S [place] MDAttender: Rani EST - 02/02/2019 [facility] MDAttender: 07:48:00 PM EST oYli Montes MDAttender: Montanacorrine Napier MDAdmitter: Abbie Guzman MDConsultant: Robin Lima MDConsultant: eKvin Weller NPConsultant: Abbie Guzman MD T'S Patient discharged. Emergency Attender: John 01/14/2019 10:18:00 SICKLE CELL [place] Lomeli AM EST - 01/14/2019 [place] [facility] 04:33:00 PM EST SICKLE CELL [place] - [place] Patient discharged. Emergency Attender: Christian 01/09/2019 09:45:00 SICKLE CE LL [place] Yanique De Jesus MD EST - 01/09/2019 Hosp ital 04:26:00 PM EST SICKLE CELL [place] Patient discharged. Emergency Attender: Annette 12/27/2018 10:16:00 CHEST P AIN [place] Ngozi HU EST - 12/27/2018 [facility] 03:36:00 PM EST CHEST PAIN [place] Patient discharged. Emergency Attender: Girma 12/22/2018 07:31:00 CHEST PAIN ,TROUBLE [place] Castillo DO EST - 12/23/2018 BREATHING, ARM P AIN Hospital 12:05:00 AM EST AUTO CHEST PAIN,TROUBLE BREATHING, ARM PAIN AUTO Patient discharged. Inpatient Attender: Andrew 12/14/2018 SICKLE CELL [place] tarik Fernandezttender: Kellie 07:58:00 PM EST - PAIN [facility] DOAttender: 12/16/2018 Rolo VerduzcoAdmitter: 03:42:00 PM EST [facility] DOConsultant: Kevin Weller NP SICKLE CELL PAIN Patient discharged. Emergency Attender: Sheila 12/10/2018 10:45:00 SICKLE ANY L [place] Yancey AM EDT [facility] Hospital ARR-AUTO SICKLE CELL CRISIS ARR-AUTO Emergency Attender: Daniel 11/25/2018 04:00:00 SICKLE CE LL [place] Joaquín PM EDT - 11/25/2018 CRISIS AUTO Hospital 10:32:00 PM EDT SICKLE CELL CRISIS AUTO Patient discharged. Emergency Attender: Deb Varela 11/04/2018 CHEST/BACK AYALA N Yanique Sherman DOConsultant: Jatinder 06:31:00 PM EDT - [facility] [facility] [place] [facility] 11/05/2018 12:49:00 AM EDT CHEST/BACK PAIN ARR-[place] Patient discharged. Emergency Attender: Montana 10/26/2018 10:34:00 SICKLE CRI SIS Yanique Napier MD AM EDT - 10/26/2018 [facility] 06:53:00 PM EDT [place] SICKLE CRISIS [place] Patient discharged. Emergency Attender: Flavia 10/18/2018 05:52:00 SICKLE CELL [place] Shulman PM EDT - 10/18/2018 ARR-AUTO [facility] 11:40:00 PM EDT SICKLE CELL ARR-AUTO Patient discharged. Inpatient Attender: Carolyn 10/09/2018 09:18:00 SICKLE C ELL [place] Nadia MDAttender: PM EDT - 10/10/2018 [facility] Misha Cuellar 05:23:00 PM EDT [place] DOAttender: Deb Varela DOAttender: [place] Napier MDAdmitter: Misha Cuellar DOConsultant: Kevin Weller NP SICKLE CELL [place] Patient discharged. Emergency Attender: Montana 10/02/2018 04:46:00 SICKLE ANY L Yanique Napier MD EDT - 10/02/2018 [place] Hosp [facility] 10:40:00 PM EDT SICKLE CELL [place] Patient discharged. Emergency Attender: Deb 09/24/2018 06:28:00 SICKLE CELL Yanique Varela DO PM EDT - 09/24/2018 [facility] Hospital 11:15:00 PM EDT SICKLE CELL [place] Patient discharged. Emergency Attender: Annette 09/09/2018 08:52:00 [place]LL [place] [facility] PM EDT - 09/10/2018 [facility] Hospital 04:52:00 AM EDT SICKLE CELL CRISIS AUTO Patient discharged. P 11/09/2008 09:55:00 PM EDT C/O CHEST PAIN [facility] C/O CHEST PAIN Functional Status Medications Medication Brand Start Product Dose Route Administrative Pharmacy [facility] Indications Reaction Description Data Name Date Form Instructions Instructions Source(s) Amoxicillin Amoxic 12/23/ TABLET 875 ORAL complet White 875 MG / illin/ 2019 [place] Clavulanate Potass 02:23: Hosp ital 125 MG Oral ium 00 PM Tablet Clav EST Amoxicillin /Potassium Clav Amoxicillin Amoxic 12/23/ TABLET 875 ORAL complet [place] 875 MG / illin/ 2019 [place] Clavulanate Potass 02:23: Hosp ital 125 MG Oral ium 00 PM Tablet Clav EST Amoxicillin /Potassium Clav Amoxicillin Amoxic 12/23/ TABLET 875 ORAL active White 875 MG / illin/ 2019 [place] Clavulanate Potass 02:23: Hosp ital 125 MG Oral ium 00 PM Tablet Clav EST Amoxicillin /Potassium Clav Amoxicillin Amoxic 12/23/ TABLET 875 ORAL complet [place] 875 MG / illin/ 2019 [place] Clavulanate Potass 02:23: Hosp ital 125 MG Oral ium 00 PM Tablet Clav EST Amoxicillin /Potassium Clav Amoxicillin Amoxic 12/23/ TABLET 875 ORAL complet [place] 875 MG / illin/ 2019 [place] Clavulanate Potass 02:23: Hosp ital 125 MG Oral ium 00 PM Tablet Clav EST Amoxicillin /Potassium Clav Amoxicillin Amoxic 12/23/ TABLET 875 ORAL active [place] 875 MG / illin/ 2019 [place] Clavulanate Potass 02:23: Hosp ital 125 MG Oral ium 00 PM Tablet Clav EST Amoxicillin /Potassium Clav Amoxicillin Amoxic 12/23/ TABLET 875 ORAL complet [place] 875 MG / illin/ 2019 mg [place] Clavulanate Potass 02:23: Hosp ital 125 MG Oral ium 00 PM Tablet Clav EST Amoxicillin /Potassium Clav Amoxicillin Amoxic 12/23/ TABLET 875 ORAL complet [place] 875 MG / illin/ 2019 [place] Clavulanate Potass 02:23: Hosp ital 125 MG Oral ium 00 PM Tablet Clav EST Amoxicillin /Potassium Clav Amoxicillin Amoxic 12/23/ TABLET 875 ORAL complet [place] 875 MG / illin/ 2019 [place] Clavulanate Potass 02:23: Hosp ital 125 MG Oral ium 00 PM Tablet Clav EST Amoxicillin /Potassium Clav Amoxicillin Amoxic 12/23/ TABLET 875 ORAL active [place] 875 MG / illin/ 2019 [place] Clavulanate Potass 02:23: Hosp ital 125 MG Oral ium 00 PM Tablet Clav EST Amoxicillin /Potassium Clav Amoxicillin Amoxic 12/23/ TABLET 875 ORAL complet [place] 875 MG / illin/ 2019 [place] Clavulanate Potass 02:23: Hosp ital 125 MG Oral ium 00 PM Tablet Clav EST Amoxicillin /Potassium Clav Amoxicillin Amoxic 12/23/ TABLET 875 ORAL complet [place] 875 MG / illin/ 2019 mg [place] Clavulanate Potass 02:23: Hosp ital 125 MG Oral ium 00 PM Tablet Clav EST Amoxicillin /Potassium Clav Amoxicillin Amoxic 12/23/ TABLET 875 ORAL complet [place] 875 MG / illin/ 2019 mg [place] Clavulanate Potass 02:23: Hosp ital 125 MG Oral ium 00 PM Tablet Clav EST Amoxicillin /Potassium Clav Amoxicillin Amoxic 12/23/ TABLET 875 ORAL complet [place] 875 MG / illin/ 2019 mg [place] Clavulanate Potass 02:23: Hosp ital 125 MG Oral ium 00 PM Tablet Clav EST Amoxicillin /Potassium Clav Amoxicillin Amoxic 12/23/ TABLET 875 ORAL complet [place] 875 MG / illin/ 2019 [place] Clavulanate Potass 02:23: Hosp ital 125 MG Oral ium 00 PM Tablet Clav EST Amoxicillin /Potassium Clav Amoxicillin Amoxic 12/23/ TABLET 875 ORAL complet [place] 875 MG / illin/ 2019 [place] Clavulanate Potass 02:23: Hosp ital 125 MG Oral ium 00 PM Tablet Clav EST Amoxicillin /Potassium Clav 12 HR Oxycod 03/29/ TABLET 30 mg ORAL complet [place] Oxycodone one 2018 [place] Hydrochlori Hcl 02:38: Hospit al de 30 MG 00 AM Extended EST Release Oral Tablet [Oxycontin] Oxycodone Hcl 12 HR Oxycod 03/29/ TABLET 30 mg ORAL complet [place] Oxycodone one 2018 [place] Hydrochlori Hcl 02:38: Hospit al de 30 MG 00 AM Extended EST Release Oral Tablet [Oxycontin] Oxycodone Hcl 12 HR Oxycod 03/29/ TABLET 30 mg ORAL complet [place] Oxycodone one 2019 [place] Hydrochlori Hcl 02:38: Hospit al de 30 MG 00 AM Extended EST Release Oral Tablet [Oxycontin] Oxycodone Hcl 12 HR Oxycod 02/16/ TABLET 30 mg ORAL complet [facility] [place] Oxycodone one 2018 [place] Hydrochlori Hcl 02:38: Hospit al de 30 MG 00 AM Extended EST Release Oral Tablet [Oxycontin] Oxycodone Hcl 12 HR Oxycod 02/16/ TABLET 30 mg ORAL complet [place] Oxycodone one 2018 [place] Hydrochlori Hcl 02:38: Hospit al de 30 MG 00 AM Extended EST Release Oral Tablet [Oxycontin] Oxycodone Hcl 12 HR Oxycod 02/16/ TABLET 30 mg ORAL complet [facility] [place] Oxycodone one 2018 [place] Hydrochlori Hcl 02:38: Hospit al de 30 MG 00 AM Extended EST Release Oral Tablet [Oxycontin] Oxycodone Hcl 12 HR Oxycod 02/16/ TABLET 30 mg ORAL complet [place] Oxycodone one 2018 [place] Hydrochlori Hcl 02:38: Hospit al de 30 MG 00 AM Extended EST Release Oral Tablet [Oxycontin] Oxycodone Hcl 12 HR Oxycod 02/16/ TABLET 30 mg ORAL complet [place] Oxycodone one 2018 [place] Hydrochlori Hcl 02:38: Hospit al de 30 MG 00 AM Extended EST Release Oral Tablet [Oxycontin] Oxycodone Hcl 12 HR Oxycod 02/16/ TABLET 30 mg ORAL complet [facility] [place] Oxycodone one 2018 [place] Hydrochlori Hcl 02:38: Hospit al de 30 MG 00 AM Extended EST Release Oral Tablet [Oxycontin] Oxycodone Hcl 12 HR Oxycod 02/16/ TABLET 30 mg ORAL complet [facility] [place] Oxycodone one 2018 [place] Hydrochlori Hcl 02:38: Hospit al de 30 MG 00 AM Extended EST Release Oral Tablet [Oxycontin] Oxycodone Hcl 12 HR Oxycod 02/16/ TABLET 30 mg ORAL complet [place] Oxycodone one 2018 [place] Hydrochlori Hcl 02:38: Hospit al de 30 MG 00 AM Extended EST Release Oral Tablet [Oxycontin] Oxycodone Hcl 12 HR Oxycod 02/16/ TABLET 30 mg ORAL complet [place] Oxycodone one 2019 [place] Hydrochlori Hcl 02:38: Hospit al de 30 MG 00 AM Extended EST Release Oral Tablet [Oxycontin] Oxycodone Hcl 12 HR Oxycod 02/16/ TABLET 30 mg ORAL complet [place] Oxycodone one 2018 [place] Hydrochlori Hcl 02:38: Hospit al de 30 MG 00 AM Extended EST Release Oral Tablet [Oxycontin] Oxycodone Hcl 12 HR Oxycod 02/16/ TABLET 30 mg ORAL complet [place] Oxycodone one 2018 [place] Hydrochlori Hcl 02:38: Hospit al de 30 MG 00 AM Extended EST Release Oral Tablet [Oxycontin] Oxycodone Hcl 12 HR Oxycod 16/ TABLET 30 mg ORAL complet [place] Oxycodone one 2018 [place] Hydrochlori Hcl 02:38: Hospit al de 30 MG 00 AM Extended EST Release Oral Tablet [Oxycontin] Oxycodone Hcl 12 HR Oxycod 16/ TABLET 30 mg ORAL complet [place] Oxycodone one 2018 [place] Hydrochlori Hcl 02:38: Hospit al de 30 MG 00 AM Extended EST Release Oral Tablet [Oxycontin] Oxycodone Hcl Folic Acid TABLET 1 mg ORAL complet [facility] gabapentin Gabape TABLET 600 ORAL complet Wh ite 600 MG Oral ntin mg [facility] Gabapentin Folic Acid TABLET 1 mg ORAL complet [facility] gabapentin Gabape TABLET 600 ORAL complet Wh ite 600 MG Oral ntin mg [facility] Gabapentin Folic Acid TABLET [address] [facility] gabapentin Gabape TABLET 600 ORAL complet Wh ite 600 MG Oral ntin mg [facility] Gabapentin Folic Acid TABLET 1 mg ORAL complet [facility] Folic Acid TABLET [address] [facility] Folic Acid TABLET 1 mg ORAL complet [facility] Folic Acid TABLET [address] [facility] Folic Acid TABLET 1 mg ORAL complet [facility] gabapentin Gabape TABLET 600 ORAL complet Wh ite 600 MG Oral ntin mg [facility] Gabapentin gabapentin Gabape TABLET 600 ORAL complet Wh ite 600 MG Oral ntin mg [facility] Gabapentin gabapentin [place]ape TABLET 600 ORAL complet Wh ite 600 MG Oral ntin mg [facility] Gabapentin gabapentin Gabape TABLET 600 ORAL complet Wh ite 600 MG Oral ntin mg [place] Tablet [facility] Gabapentin gabapentin Gabape TABLET 600 ORAL complet Wh ite 600 MG Oral ntin mg [facility] Tablet [facility] Gabapentin gabapentin [place]ape TABLET 600 ORAL complet Wh ite 600 MG Oral ntin mg [facility] Tablet [facility] Gabapentin gabapentin [place]ape TABLET 600 ORAL complet Wh ite 600 MG Oral ntin mg [facility] Tablet [facility] Gabapentin gabapentin [place]ape TABLET 600 ORAL complet Wh ite 600 MG Oral ntin mg [facility] Tablet [facility] Gabapentin gabapentin [place] TABLET 600 ORAL complet Wh ite 600 MG Oral ntin mg [facility] Tablet [facility] Gabapentin Folic Acid TABLET [address] [facility] gabapentin Gabape TABLET 600 ORAL complet Wh ite 600 MG Oral ntin mg [facility] Tablet [facility] Gabapentin Folic Acid TABLET [address] [facility] gabapentin Gabape TABLET 600 ORAL complet Wh ite 600 MG Oral ntin mg [facility] Tablet [facility] Gabapentin gabapentin [place]ape TABLET 600 ORAL complet Wh ite 600 MG Oral ntin mg [facility] Tablet [facility] Gabapentin gabapentin [place] TABLET 600 ORAL complet Wh ite 600 MG Oral ntin mg [facility] Tablet [facility] Gabapentin gabapentin [place]ape TABLET 600 ORAL complet ite 600 MG Oral ntin mg [facility] Tablet [facility] Gabapentin Folic Acid TABLET [address] [facility] gabapentin [place]ape TABLET 600 ORAL complet ite 600 MG Oral ntin mg [facility] Tablet [facility] Gabapentin gabapentin [place]ape TABLET 600 ORAL complet ite 600 MG Oral ntin mg [facility] Tablet [facility] Gabapentin Folic Acid TABLET [address] [facility] gabapentin [place]ape TABLET 600 ORAL complet ite 600 MG Oral ntin mg [facility] Tablet [facility] Gabapentin Folic Acid TABLET [address] [facility] gabapentin [place] TABLET 600 ORAL complet ite 600 MG Oral ntin mg [facility] Tablet [facility] Gabapentin Folic Acid TABLET [address] [facility] Folic Acid TABLET [address] [facility] Folic Acid TABLET [address] 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 [id number] PT [id number] COMPENSATION OPTUM SECONDARY [id number] GOLD MEDICARE [id number] PT [id number] A STATE FARM [id number] PT [id number] [place] [id number] PT [id number] Problems, Conditions, and Diagnoses Code Display Name Description Problem Type Effective Dates Data Source(s) K76.6 Portal hypertension K76.6 Diagnosis 12/08/2019 [place] 07:55:00 PM EDT Hospital Z86.711 Personal history of Z86.711 Diagnosis 12/08/2019 [place] pulmonary embolism 07:55:00 PM EDT H ospital Z86.718 Personal history of Z86.718 Diagnosis 12/08/2019 [place] other venous 07:55:00 PM EDT Hospita l thrombosis and embolism Z88.5 Allergy status to Z88.5 Diagnosis 12/08/2019 [place] narcotic agent status 07:55:00 PM ED T Hospital I11.9 Hypertensive heart I11.9 Diagnosis 12/08/2019 [place] disease without heart 07:55:00 PM ED T Hospital failure R59.0 Localized enlarged R59.0 Diagnosis 12/08/2019 [place] lymph nodes 07:55:00 PM EDT Hospital R07.89 Other chest pain R07.89 Diagnosis 12/08/[address] [place] 07:55:00 PM EDT Hospital 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 12/08/2019 [place] crisis, unspecified 07:55:00 PM EDT Hospital K74.60 Unspecified cirrhosis K74.60 Diagnosis 11/07/2019 [place] of liver 10:23:00 PM EDT Hospital K74.69 Other cirrhosis of K74.69 Diagnosis 08/02/2019 [place] liver 02:10:00 PM EDT Hospital D64.9 Anemia, unspecified D64.9 Diagnosis 08/02/2019 [place] 02:10:00 PM EDT Hospital M79.662 Pain in left lower M79.662 Diagnosis 07/19/2019 [place] leg 04:06:00 PM EDT Hospital M79.89 Other specified soft M79.89 Diagnosis 07/19/2019 [place] tissue disorders 04:06:00 PM EDT Hos pital M54.5 Low back pain M54.5 Diagnosis 05/22/2019 [place] 01:04:00 PM EDT Hospital Z79.01 residential (current) Z79.01 Diagnosis 05/22/2019 [place] use of anticoagulants 01:04:00 PM ED T Hospital I10 Essential (primary) I10 Diagnosis 04/26/2019 [place] hypertension 03:29:00 PM EDT Hospita l G89.29 Other chronic pain G89.29 Diagnosis 03/13/2019 [place] 06:06:00 PM EST Hospital M13.88 Other specified M13.88 Diagnosis 02/28/2019 [place] arthritis, other site 12:24:00 PM [facility] Hospital E66.9 Obesity, unspecified E66.9 Diagnosis 02/28/2019 [place] 12:24:00 PM EST Hospital D72.829 Elevated white blood D72.829 Diagnosis 01/26/2019 [place] cell count, 12:58:00 PM EST Hospital unspecified K59.00 Constipation, K59.00 Diagnosis 01/26/2019 [place] unspecified 12:58:00 PM EST Hospital 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 Diagnosis 01/26/2019 [place] congestion of liver 12:58:00 PM EST Hospital Z87.01 Personal history of Z87.01 Diagnosis 01/26/2019 [place] pneumonia (recurrent) 12:58:00 PM [facility] Hospital 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 [place] spleen 12:58:00 PM EST Hospital M19.90 Unspecified M19.90 Diagnosis 01/26/2019 [place] osteoarthritis, 12:58:00 PM EST Hosp ital unspecified site Z68.37 Body mass index (BMI) Z68.37 Diagnosis 01/26/2019 [place] 37.0-37.9, adult 12:58:00 PM EST Hos pital R50.81 Fever presenting with R50.81 Diagnosis 01/26/2019 [place] conditions classified 12:58:00 PM [facility] Hospital elsewhere J20.9 Acute bronchitis, J20.9 Diagnosis 01/26/2019 [place] unspecified 12:58:00 PM EST Hospital J98.59 Other diseases of J98.59 Diagnosis 01/26/2019 [place] mediastinum, not 12:58:00 PM EST Hos pital elsewhere classified I81 Portal vein I81 Diagnosis 01/26/2019 [place] thrombosis 12:58:00 PM EST Hospital R09.89 Other specified R09.89 Diagnosis 01/14/2019 [place] symptoms and signs 11:08:00 AM EST H ospital involving the circulatory and respiratory systems R05 Cough R05 Diagnosis 01/14/2019 [place] 11:08:00 AM EST Hospital K92.1 Melena K92.1 Diagnosis 01/09/2019 [place] 10:26:[address] [facility] Hospital R06.02 Shortness of breath R06.02 Diagnosis 01/09/2019 [place] 10:26:00 AM EST Hospital J06.9 Acute upper J06.9 Diagnosis 12/27/2018 [place] respiratory 11:51:00 AM EST Hospital infection, unspecified I51.7 Cardiomegaly I51.7 Diagnosis 12/22/2018 [place] 07:57:00 PM EST Hospital Z79.02 residential (current) Z79.02 Diagnosis 12/15/2018 [place] use of 01:54:00 AM EST Hospital antithrombotics/antip latelets M25.561 Pain in right knee M25.561 Diagnosis 12/10/2018 [place] 12:31:00 PM EDT Hospital M79.604 Pain in right leg M79.604 Diagnosis 11/25/2018 [place] 05:57:00 PM EDT Hospital M79.605 Pain in left leg M79.605 Diagnosis 11/25/[address] [place] 05:57:00 PM EDT Hospital D57.1 Sickle-cell disease D57.1 Diagnosis 10/18/2018 [place] without crisis 06:17:00 PM EDT Hospi alex Surgeries/Procedures Procedure Description Date Indications Data Source(s) INJ HEPARIN SODIUM PER 10 U 08/02/2019 [place] 12:00:00 AM Hospital EDT INJECTION, ONDANSETRON 08/02/2019 [place] HYDROCHLORIDE, PER 1 MG 12:00:00 AM Hosp ital EDT INJECTION, HYDOMORPHONE, UP TO 4 08/02/2019 [place] [facility] 12:00:00 AM Hospital EDT INJECTION, HYDOMORPHONE, UP TO 4 08/02/2019 [place] [facility] 12:00:00 AM Hospital EDT injection Diphenhydramine HCL, 08/02/2019 [place] up to 50 MG 12:00:00 AM Hospital EDT 5% DEXTROSE/WATER 08/02/2019 [place] 12:00:00 AM Hospital EDT Comprehen metabolic panel 08/02/2019 [place] 12:00:00 AM Hospital EDT Prothrombin time 08/02/2019 [place] 12:00:00 AM Hospital EDT Complete cbc w/auto diff wbc 08/02/2019 [place] 12:00:00 AM Hospital EDT Thromboplastin time partial 08/02/2019 [place] 12:00:00 AM Hospital EDT Urinalysis auto w/scope 08/02/2019 [place] 12:00:00 AM Hospital EDT Tx/pro/dx inj same drug front desk coordinator 08/02/2019 [place] 12:00:00 AM Hospital EDT Tx/pro/dx inj new drug addon 08/02/2019 [place] 12:00:00 AM Hospital EDT Ther/proph/diag iv inf init 08/02/2019 [place] 12:00:00 AM Hospital EDT Emergency dept visit 08/02/2019 [place] 12:00:00 AM Hospital EDT Plain chest X-ray (procedure) 07/19/2019 [place] 12:00:00 AM Hospital EDT Electrocardiographic procedure 07/19/2019 [place] (procedure) 12:00:00 AM Hospital EDT Ultrasound scan of lower limb 07/19/2019 [place] vessels (procedure) 12:00:00 AM Hospital EDT INJ HEPARIN SODIUM PER 10 U 07/19/2019 [place] 12:00:00 AM Hospital EDT INJECTION, ONDANSETRON 07/19/2019 [place] HYDROCHLORIDE, PER 1 MG 12:00:00 AM Hosp ital EDT INJECTION, HYDOMORPHONE, UP TO 4 07/19/2019 [place] [facility] 12:00:00 AM Hospital EDT injection Diphenhydramine HCL, 07/19/2019 [place] up to 50 MG 12:00:00 AM Hospital EDT Extremity study 07/19/2019 [place] 12:00:00 AM Hospital EDT X-ray exam chest 1 view 07/19/2019 [place] 12:00:00 AM Hospital EDT Electrocardiogram tracing 07/19/2019 [place] 12:00:00 AM Hospital EDT Assay of troponin qual 07/19/2019 [place] 12:00:00 AM Hospital EDT Comprehen metabolic panel 07/19/2019 [place] 12:00:00 AM Hospital EDT Automated reticulocyte count 07/19/2019 [place] 12:00:00 AM Hospital EDT Complete cbc w/auto diff wbc 07/19/2019 [place] 12:00:00 AM Hospital EDT Hydrate iv infusion add-on 07/19/2019 [place] 12:00:00 AM Hospital EDT Tx/pro/dx inj new drug addon 07/19/2019 [place] 12:00:00 AM Hospital EDT Tx/pro/dx inj new drug addon 07/19/2019 [place] 12:00:00 AM Hospital EDT Tx/pro/dx inj same drug front desk coordinator 07/19/2019 [place] 12:00:00 AM Hospital EDT Ther/proph/diag inj iv push 07/19/2019 [place] 12:00:00 AM Hospital EDT Emergency dept visit 07/19/2019 [place] 12:00:00 AM Hospital EDT Plain chest X-ray (procedure) 07/19/2019 [place] 12:00:00 AM Hospital EDT Electrocardiographic procedure 07/19/2019 [place] (procedure) 12:00:00 AM Hospital EDT Ultrasound scan of lower limb 07/19/2019 [place] vessels (procedure) 12:00:00 AM Hospital EDT INJ HEPARIN SODIUM PER 10 U 07/19/2019 [place] 12:00:00 AM Hospital EDT INJECTION, ONDANSETRON 07/19/2019 [place] HYDROCHLORIDE, PER 1 MG 12:00:00 AM Hosp ital EDT INJECTION, HYDOMORPHONE, UP TO 4 07/19/2019 [place] [facility] 12:00:00 AM Hospital EDT injection Diphenhydramine HCL, 07/19/2019 [place] up to 50 MG 12:00:00 AM Hospital EDT Extremity study 07/19/2019 [place] 12:00:00 AM Hospital EDT X-ray exam chest 1 view 07/19/2019 [place] 12:00:00 AM Hospital EDT Electrocardiogram tracing 07/19/[place] 12:00:00 AM Hospital EDT Assay of troponin qual 07/19/2019 [place] 12:00:00 AM Hospital EDT Comprehen metabolic panel 07/19/2019 [place] 12:00:00 AM Hospital EDT Automated reticulocyte count 07/19/2019 [place] 12:00:00 AM Hospital EDT Complete cbc w/auto diff wbc 07/19/2019 [place] 12:00:00 AM Hospital EDT Hydrate iv infusion add-on 07/19/2019 [place] 12:00:00 AM Hospital EDT Tx/pro/dx inj new drug addon 07/19/2019 [place] 12:00:00 AM Hospital EDT Tx/pro/dx inj new drug addon 07/19/2019 [place] 12:00:00 AM Hospital EDT Tx/pro/dx inj same drug front desk coordinator 07/19/2019 [place] 12:00:00 AM Hospital EDT Ther/proph/diag inj iv push 07/19/2019 [place] 12:00:00 AM Hospital EDT Emergency dept visit 07/19/2019 [place] 12:00:00 AM Hospital EDT Plain chest X-ray (procedure) 07/19/2019 [place] 12:00:00 AM Hospital EDT Electrocardiographic procedure 07/19/2019 [place] (procedure) 12:00:00 AM Hospital EDT Ultrasound scan of lower limb 07/19/2019 [place] vessels (procedure) 12:00:00 AM Hospital EDT INJ HEPARIN SODIUM PER 10 U 07/08/2019 [place] 12:00:00 AM Hospital EDT INJECTION, ONDANSETRON 07/08/2019 [place] HYDROCHLORIDE, PER 1 MG 12:00:00 AM Hosp ital EDT INJECTION, HYDOMORPHONE, UP TO 4 07/08/2019 [place] [facility] 12:00:00 AM Hospital EDT injection Diphenhydramine HCL, 07/08/2019 [place] up to 50 MG 12:00:00 AM Hospital EDT Tx/pro/dx inj same drug front desk coordinator 07/08/2019 [place] 12:00:00 AM Hospital EDT Tx/pro/dx inj new drug addon 07/08/2019 [place] 12:00:00 AM Hospital EDT Ther/proph/diag inj iv push 07/08/2019 [place] 12:00:00 AM Hospital EDT Emergency dept visit 07/08/2019 [place] 12:00:00 AM Hospital EDT INJ HEPARIN SODIUM PER 10 U 07/08/2019 [place] 12:00:00 AM Hospital EDT INJECTION, ONDANSETRON 07/08/2019 [place] HYDROCHLORIDE, PER 1 MG 12:00:00 AM Hosp ital EDT INJECTION, HYDOMORPHONE, UP TO 4 07/08/2019 [place] [facility] 12:00:00 AM Hospital EDT injection Diphenhydramine HCL, 07/08/2019 [place] up to 50 MG 12:00:00 AM Hospital EDT Tx/pro/dx inj same drug front desk coordinator 07/08/2019 [place] 12:00:00 AM Hospital EDT Tx/pro/dx inj new drug addon 07/08/2019 [place] 12:00:00 AM Hospital EDT Ther/proph/diag inj iv push 07/08/2019 [place] 12:00:00 AM Hospital EDT Emergency dept visit 07/08/2019 [place] 12:00:00 AM Hospital EDT INJ HEPARIN SODIUM PER 10 U 06/15/2019 [place] 12:00:00 AM Hospital EDT INJECTION, ONDANSETRON 06/15/2019 [place] HYDROCHLORIDE, PER 1 MG 12:00:00 AM Hosp ital EDT INJECTION, HYDOMORPHONE, UP TO 4 06/15/2019 [place] [facility] 12:00:00 AM Hospital EDT injection Diphenhydramine HCL, 06/15/2019 [place] up to 50 MG 12:00:00 AM Hospital EDT Comprehen metabolic panel 06/15/2019 [place] 12:00:00 AM Hospital EDT Automated reticulocyte count 06/15/2019 [place] 12:00:00 AM Hospital EDT Complete cbc w/auto diff wbc 06/15/2019 [place] 12:00:00 AM Hospital EDT Hydrate iv infusion add-on 06/15/2019 [place] 12:00:00 AM Hospital EDT Tx/pro/dx inj new drug addon 06/15/2019 [place] 12:00:00 AM Hospital EDT Tx/pro/dx inj new drug addon 06/15/2019 [place] 12:00:00 AM Hospital EDT Tx/pro/dx inj same drug front desk coordinator 06/15/2019 [place] 12:00:00 AM Hospital EDT Ther/proph/diag inj iv push 06/15/2019 [place] 12:00:00 AM Hospital EDT Emergency dept visit 06/15/2019 [place] 12:00:00 AM Hospital EDT Electrocardiographic procedure 05/22/2019 [place] (procedure) 12:00:00 AM Hospital EDT Oxygen therapy (procedure) 05/22/2019 [facility] 12:00:00 AM Hospital EDT INJ HEPARIN SODIUM PER 10 U 05/22/2019 [place] 12:00:00 AM Hospital EDT INJECTION, HYDOMORPHONE, UP TO 4 05/22/2019 [place] [facility] 12:00:00 AM Hospital EDT injection Diphenhydramine HCL, 05/22/2019 [place] up to 50 MG 12:00:00 AM Hospital EDT Hydrate iv infusion add-on 05/22/2019 [facility] 12:00:00 AM Hospital EDT Tx/pro/dx inj new drug addon 05/22/2019 [place] 12:00:00 AM Hospital EDT Tx/pro/dx inj same drug front desk coordinator 05/22/2019 [place] 12:00:00 AM Hospital EDT Ther/proph/diag inj iv push 05/22/2019 [place] 12:00:00 AM Hospital EDT Electrocardiogram tracing 05/22/2019 [facility] 12:00:00 AM Hospital EDT Lactate (ld) (ldh) enzyme 05/22/2019 [facility] 12:00:00 AM Hospital EDT Assay of haptoglobin quant 05/22/2019 [facility] 12:00:00 AM Hospital EDT Comprehen metabolic panel 05/22/2019 [facility] 12:00:00 AM Hospital EDT Chelle test indirect qual 05/22/2019 [facility] 12:00:00 AM Hospital EDT Automated reticulocyte count 05/22/2019 [place] 12:00:00 AM Hospital EDT Emergency dept visit 05/22/2019 [place] 12:00:00 AM Hospital EDT Electrocardiographic procedure 05/22/2019 [place] (procedure) 12:00:00 AM Hospital EDT Oxygen therapy (procedure) 05/22/2019 [place] 12:00:00 AM Hospital EDT INJ HEPARIN SODIUM PER 10 U 05/12/2019 [place] 12:00:00 AM Hospital EDT INJECTION, ONDANSETRON 05/12/2019 [place] HYDROCHLORIDE, PER 1 MG 12:00:00 AM Hosp ital EDT INJECTION, HYDOMORPHONE, UP TO 4 05/12/2019 [place] [facility] 12:00:00 AM Hospital EDT injection Diphenhydramine HCL, 05/12/2019 [place] up to 50 MG 12:00:00 AM Hospital EDT Metabolic panel total ca 05/12/2019 [place] 12:00:00 AM Hospital EDT Automated reticulocyte count 05/12/2019 [place] 12:00:00 AM Hospital EDT Complete cbc w/auto diff wbc 05/12/2019 [place] 12:00:00 AM Hospital EDT Tx/pro/dx inj same drug front desk coordinator 05/12/2019 [place] 12:00:00 AM Hospital EDT Tx/pro/dx inj new drug addon 05/12/2019 [place] 12:00:00 AM Hospital EDT Ther/proph/diag inj iv push 05/12/2019 [place] 12:00:00 AM Hospital EDT Emergency dept visit 05/12/2019 [place] 12:00:00 AM Hospital EDT INJ HEPARIN SODIUM PER 10 U 05/04/2019 [place] 12:00:00 AM Hospital EDT INJECTION, ONDANSETRON 05/04/2019 [place] HYDROCHLORIDE, PER 1 MG 12:00:00 AM Hosp ital EDT INJECTION, HYDOMORPHONE, UP TO 4 05/04/2019 [place] [facility] 12:00:00 AM Hospital EDT INJECTION, HYDOMORPHONE, UP TO 4 05/04/2019 [place] [facility] 12:00:00 AM Hospital EDT injection Diphenhydramine HCL, 05/04/2019 [place] up to 50 MG 12:00:00 AM Hospital EDT Tx/pro/dx inj new drug addon 05/04/2019 [place] 12:00:00 AM Hospital EDT Tx/pro/dx inj same drug front desk coordinator 05/04/2019 [place] 12:00:00 AM Hospital EDT Ther/proph/diag inj iv push 05/04/2019 [place] 12:00:00 AM Hospital EDT Comprehen metabolic panel 05/04/[place] 12:00:00 AM Hospital EDT Urine test 05/04/2019 [place] 12:00:00 AM Hospital EDT Complete cbc w/auto diff wbc 05/04/2019 [place] 12:00:00 AM Hospital EDT Emergency dept visit 05/04/2019 [place] 12:00:00 AM Hospital EDT Oxygen therapy (procedure) 04/26/2019 [place] 12:00:00 AM Hospital EDT INJ HEPARIN SODIUM PER 10 U 04/26/2019 [place] 12:00:00 AM Hospital EDT INJECTION, ONDANSETRON 04/26/2019 [place] HYDROCHLORIDE, PER 1 MG 12:00:00 AM Hosp ital EDT INJECTION, HYDOMORPHONE, UP TO 4 04/26/2019 [place] [facility] 12:00:00 AM Hospital EDT injection Diphenhydramine HCL, 04/26/2019 [place] up to 50 MG 12:00:00 AM Hospital EDT DIPHENHYDRAMINE HCL 50MG 04/26/2019 [place] 12:00:00 AM Hospital EDT Comprehen metabolic panel 04/26/2019 [place] 12:00:00 AM Hospital EDT Automated reticulocyte count 04/26/2019 [place] 12:00:00 AM Hospital EDT Complete cbc w/auto diff wbc 04/26/2019 [place] 12:00:00 AM Hospital EDT Urinalysis auto w/o scope 04/26/[place] 12:00:00 AM Hospital EDT Hydrate iv infusion add-on 04/26/2019 [place] 12:00:00 AM Hospital EDT Tx/pro/dx inj new drug addon 04/26/2019 [place] 12:00:00 AM Hospital EDT Tx/pro/dx inj new drug addon 04/26/2019 [place] 12:00:00 AM Hospital EDT Tx/pro/dx inj same drug front desk coordinator 04/26/2019 [place] 12:00:00 AM Hospital EDT Ther/proph/diag inj iv push 04/26/2019 [place] 12:00:00 AM Hospital EDT Emergency dept visit 04/26/2019 [facility] [facility] 12:00:00 AM Hospital EDT Oxygen therapy (procedure) 04/26/2019 [place] 12:00:00 AM Hospital EDT INJ HEPARIN SODIUM PER 10 U 04/26/2019 [place] 12:00:00 AM Hospital EDT INJECTION, ONDANSETRON 04/26/2019 [place] HYDROCHLORIDE, PER 1 MG 12:00:00 AM Hosp ital EDT INJECTION, HYDOMORPHONE, UP TO 4 04/26/2019 [place] [facility] 12:00:00 AM Hospital EDT injection Diphenhydramine HCL, 04/26/2019 [place] up to 50 MG 12:00:00 AM Hospital EDT DIPHENHYDRAMINE HCL 50MG 04/26/2019 [place] 12:00:00 AM Hospital EDT Comprehen metabolic panel 04/26/[place] 12:00:00 AM Hospital EDT Automated reticulocyte count 04/26/2019 [place] 12:00:00 AM Hospital EDT Complete cbc w/auto diff wbc 04/26/2019 [place] 12:00:00 AM Hospital EDT Urinalysis auto w/o scope 04/26/[place] 12:00:00 AM Hospital EDT Hydrate iv infusion add-on 04/26/2019 [place] 12:00:00 AM Hospital EDT Tx/pro/dx inj new drug addon 04/26/2019 [place] 12:00:00 AM Hospital EDT Tx/pro/dx inj new drug addon 04/26/2019 [place] 12:00:00 AM Hospital EDT Tx/pro/dx inj same drug front desk coordinator 04/26/2019 [place] 12:00:00 AM Hospital EDT Ther/proph/diag inj iv push 04/26/2019 [place] 12:00:00 AM Hospital EDT Emergency dept visit 04/26/2019 [place] 12:00:00 AM Hospital EDT Oxygen therapy (procedure) 04/26/2019 [place] 12:00:00 AM Hospital EDT INJ HEPARIN SODIUM PER 10 U 04/17/2019 [place] 12:00:00 AM Hospital EST INJECTION, ONDANSETRON 04/17/2019 [place] HYDROCHLORIDE, PER 1 MG 12:00:00 AM Hosp ital EST INJECTION, HYDOMORPHONE, UP TO 4 04/17/2019 [place] [facility] 12:00:00 AM Hospital EST INJECTION, HYDOMORPHONE, UP TO 4 04/17/2019 [place] [facility] 12:00:00 AM Hospital EST injection Diphenhydramine HCL, 04/17/2019 [place] up to 50 [facility] 12:00:00 AM Hospital EST ACETAMINOPHEN INJECTION 04/17/2019 [place] 12:00:00 AM Hospital EST Assay of troponin qual 04/17/2019 [place] 12:00:00 AM Hospital EST Chorionic gonadotropin assay 04/17/2019 [place] 12:00:00 AM Hospital EST Assay of ck (cpk) 04/17/2019 [place] 12:00:00 AM Hospital EST Comprehen metabolic panel 04/17/2019 [place] 12:00:00 AM Hospital EST Drug test prsmv chem anlyzr 04/17/2019 [place] 12:00:00 AM Hospital EST Automated reticulocyte count 04/17/2019 [place] 12:00:00 AM Hospital EST Prothrombin time 04/17/2019 [place] 12:00:00 AM Hospital EST Thromboplastin time partial 04/17/2019 [place] 12:00:00 AM Hospital EST Tx/pro/dx inj new drug addon 04/17/2019 [place] 12:00:00 AM Hospital EST Tx/pro/dx inj same drug front desk coordinator 04/17/2019 [place] 12:00:00 AM Hospital EST Ther/proph/diag inj iv push 04/17/2019 [place] 12:00:00 AM Hospital EST Emergency dept visit 04/17/2019 [place] 12:00:00 AM Hospital EST INJ HEPARIN SODIUM PER 10 U 04/17/2019 [place] 12:00:00 AM Hospital EST INJECTION, ONDANSETRON 04/17/2019 [place] HYDROCHLORIDE, PER 1 MG 12:00:00 AM Hosp ital EST INJECTION, HYDOMORPHONE, UP TO 4 04/17/2019 [place] [facility] 12:00:00 AM Hospital EST INJECTION, HYDOMORPHONE, UP TO 4 04/17/2019 [place] [facility] 12:00:00 AM Hospital EST injection Diphenhydramine HCL, 04/17/2019 [place] up to 50 [facility] 12:00:00 AM Hospital EST ACETAMINOPHEN INJECTION 04/17/2019 [place] 12:00:00 AM Hospital EST Assay of troponin qual 04/17/2019 [place] 12:00:00 AM Hospital EST Chorionic gonadotropin assay 04/17/2019 [place] 12:00:00 AM Hospital EST Assay of ck (cpk) 04/17/2019 [place] 12:00:00 AM Hospital EST Comprehen metabolic panel 04/17/2019 [place] 12:00:00 AM Hospital EST Drug test prsmv chem anlyzr 04/17/2019 [place] 12:00:00 AM Hospital EST Automated reticulocyte count 04/17/2019 [place] 12:00:00 AM Hospital EST Prothrombin time 04/17/2019 [place] 12:00:00 AM Hospital EST Thromboplastin time partial 04/17/2019 [place] 12:00:00 AM Hospital EST Tx/pro/dx inj new drug addon 04/17/2019 [place] 12:00:00 AM Hospital EST Tx/pro/dx inj same drug front desk coordinator 04/17/2019 [place] 12:00:00 AM Hospital EST Ther/proph/diag inj iv push 04/17/2019 [place] 12:00:00 AM Hospital EST Emergency dept visit 04/17/2019 [place] 12:00:00 AM Hospital EST Electrocardiographic procedure 03/31/2019 [place] (procedure) 12:00:00 AM Hospital EST Diagnostic radiography of chest, 03/31/2019 [place] combined posteroanterior and 12:00:00 AM Hospital lateral (procedure) EST INJ HEPARIN SODIUM PER 10 U 03/31/2019 [place] 12:00:00 AM Hospital EST INJECTION, ONDANSETRON 03/31/2019 [place] HYDROCHLORIDE, PER 1 MG 12:00:00 AM Hosp ital EST INJECTION, HYDOMORPHONE, UP TO 4 03/31/2019 [place] [facility] 12:00:00 AM Hospital EST injection Diphenhydramine HCL, 03/31/2019 [place] up to 50 MG 12:00:00 AM Hospital EST ACETAMINOPHEN INJECTION 03/31/2019 [place] 12:00:00 AM Hospital EST X-ray exam chest 2 views 03/31/2019 [place] 12:00:00 AM Hospital EST Electrocardiogram tracing 03/31/2019 [place] 12:00:00 AM Hospital EST Chorionic gonadotropin assay 03/31/2019 [place] 12:00:00 AM Hospital EST Comprehen metabolic panel 03/31/2019 [place] 12:00:00 AM Hospital EST Automated reticulocyte count 03/31/2019 [place] 12:00:00 AM Hospital EST Complete cbc w/auto diff wbc 03/31/2019 [place] 12:00:00 AM Hospital EST Influenza dna amp probe 03/31/2019 [place] 12:00:00 AM Hospital EST Tx/pro/dx inj new drug addon 03/31/2019 [place] 12:00:00 AM Hospital EST Tx/pro/dx inj same drug front desk coordinator 03/31/2019 [place] 12:00:00 AM Hospital EST Ther/proph/diag inj iv push 03/31/2019 [place] 12:00:00 AM Hospital EST Emergency dept visit 03/31/2019 [place] 12:00:00 AM Hospital EST Electrocardiographic procedure 03/31/2019 [place] (procedure) 12:00:00 AM Hospital EST Diagnostic radiography of chest, 03/31/2019 [place] combined posteroanterior and 12:00:00 AM Hospital lateral (procedure) EST INJ HEPARIN SODIUM PER 10 U 03/31/2019 [place] 12:00:00 AM Hospital EST INJECTION, ONDANSETRON 03/31/2019 [place] HYDROCHLORIDE, PER 1 MG 12:00:00 AM Hosp ital EST INJECTION, HYDOMORPHONE, UP TO 4 03/31/2019 [place] [facility] 12:00:00 AM Hospital EST injection Diphenhydramine HCL, 03/31/2019 [place] up to 50 MG 12:00:00 AM Hospital EST ACETAMINOPHEN INJECTION 03/31/2019 [place] 12:00:00 AM Hospital EST X-ray exam chest 2 views 03/31/2019 [place] 12:00:00 AM Hospital EST Electrocardiogram tracing 03/31/2019 [place] 12:00:00 AM Hospital EST Chorionic gonadotropin assay 03/31/2019 [place] 12:00:00 AM Hospital EST Comprehen metabolic panel 03/31/2019 [place] 12:00:00 AM Hospital EST Automated reticulocyte count 03/31/2019 [place] 12:00:00 AM Hospital EST Complete cbc w/auto diff wbc 03/31/2019 [place] 12:00:00 AM Hospital EST Influenza dna amp probe 03/31/2019 [place] 12:00:00 AM Hospital EST Tx/pro/dx inj new drug addon 03/31/2019 [place] 12:00:00 AM Hospital EST Tx/pro/dx inj same drug front desk coordinator 03/31/2019 [place] 12:00:00 AM Hospital EST Ther/proph/diag inj iv push 03/31/2019 [place] 12:00:00 AM Hospital EST Emergency dept visit 03/31/2019 [place] 12:00:00 AM Hospital EST Electrocardiographic procedure 03/31/2019 [place] (procedure) 12:00:00 AM Hospital EST Diagnostic radiography of chest, 03/31/2019 [place] combined posteroanterior and 12:00:00 AM Hospital lateral (procedure) EST INJ HEPARIN SODIUM PER 10 U 03/13/2019 [place] 12:00:00 AM Hospital EST INJECTION, HYDOMORPHONE, UP TO 4 03/13/2019 [place] [facility] 12:00:00 AM Hospital EST INJECTION, HYDOMORPHONE, UP TO 4 03/13/2019 [place] [facility] 12:00:00 AM Hospital EST injection Diphenhydramine HCL, 03/13/2019 [place] up to 50 [facility] 12:00:00 AM Hospital EST ACETAMINOPHEN INJECTION 03/13/2019 [place] 12:00:00 AM Hospital EST HOSPITAL OBSERVATION PER HR 03/13/2019 [place] 12:00:00 AM Hospital EST Comprehen metabolic panel 03/13/2019 [place] 12:00:00 AM Hospital EST Urine test 03/13/2019 [place] 12:00:00 AM Hospital EST Automated reticulocyte count 03/13/2019 [place] 12:00:00 AM Hospital EST Complete cbc w/auto diff wbc 03/13/2019 [place] 12:00:00 AM Hospital EST Urinalysis auto w/scope 03/13/2019 [place] 12:00:00 AM Hospital EST Tx/pro/dx inj same drug front desk coordinator 03/13/2019 [place] 12:00:00 AM Hospital EST Tx/pro/dx inj same drug front desk coordinator 03/13/2019 [place] 12:00:00 AM Hospital EST Ther/proph/diag iv inf init 03/13/2019 [place] 12:00:00 AM Hospital EST Tx/pro/dx inj new drug addon 03/13/2019 [place] 12:00:00 AM Hospital EST Emergency dept visit 03/13/2019 [facility] 12:00:00 AM Hospital EST Plain chest X-ray (procedure) 02/28/2019 [place] 12:00:00 AM Hospital EST Electrocardiographic procedure 02/28/2019 [place] (procedure) 12:00:00 AM Hospital EST INJ HEPARIN SODIUM PER 10 U 02/28/2019 [place] 12:00:00 AM Hospital EST INJECTION, ONDANSETRON 02/28/2019 [place] HYDROCHLORIDE, PER 1 MG 12:00:00 AM Hosp ital EST INJECTION, HYDOMORPHONE, UP TO 4 02/28/2019 [place] [facility] 12:00:00 AM Hospital EST injection Diphenhydramine HCL, 02/28/2019 [place] up to 50 [facility] 12:00:00 AM Hospital EST X-ray exam chest 1 view 02/28/2019 [place] 12:00:00 AM Hospital EST Electrocardiogram tracing 02/28/[place] 12:00:00 AM Hospital EST Assay of troponin qual 02/28/2019 [place] 12:00:00 AM Hospital EST Comprehen metabolic panel 02/28/2019 [place] 12:00:00 AM Hospital EST Mr-staph dna amp probe 02/28/2019 [place] 12:00:00 AM Hospital EST Chelle test indirect qual 02/28/2019 [place] 12:00:00 AM Hospital EST Automated reticulocyte count 02/28/2019 [place] 12:00:00 AM Hospital EST Prothrombin time 02/28/2019 [place] 12:00:00 AM Hospital EST Complete cbc w/auto diff wbc 02/28/2019 [place] 12:00:00 AM Hospital EST Thromboplastin time partial 02/28/2019 [place] 12:00:00 AM Hospital EST Tx/pro/dx inj new drug addon 02/28/2019 [place] 12:00:00 AM Hospital EST Tx/pro/dx inj same drug front desk coordinator 02/28/2019 [place] 12:00:00 AM Hospital EST Ther/proph/diag inj iv push 02/28/2019 [place] 12:00:00 AM Hospital EST Emergency dept visit 02/28/2019 [place] 12:00:00 AM Hospital EST Plain chest X-ray (procedure) 02/28/2019 [place] 12:00:00 AM Hospital EST Electrocardiographic procedure 02/28/2019 [place] [facility] (procedure) 12:00:00 AM [facility] EST Oxygen therapy (procedure) 02/18/2019 [facility] 12:[facility]:00 [facility] EST Continuous pulse oximetry 02/18/2019 [facility] (procedure) 12:00:00 AM [facility] EST Diagnostic radiography of chest, 02/18/2019 [facility] [facility] combined posteroanterior and 12:00:00 AM Hospital lateral (procedure) EST INJ HEPARIN SODIUM PER 10 U 02/18/2019 [facility] [facility] 12:00:00 AM Hospital EST NORMAL SALINE SOLUTION INFUS 02/18/2019 [facility] [facility] 12:00:00 AM Hospital EST INJECTION, ONDANSETRON 02/18/2019 [facility] HYDROCHLORIDE, PER 1 MG 12:00:00 AM [facility] EST INJECTION, HYDOMORPHONE, UP TO 4 02/18/2019 [facility] 12:00:00 AM [facility] EST injection Diphenhydramine HCL, 02/18/2019 [facility] [facility] up to 50 MG 12:00:00 AM Hospital EST X-ray exam chest 2 views 02/18/2019 [facility] 12:00:00 AM [facility] EST Comprehen metabolic panel 02/18/2019 [facility] 12:00:00 AM [facility] EST Mr-staph dna amp probe 02/18/2019 [facility] [facility] 12:00:00 AM [facility] EST Automated reticulocyte count 02/18/2019 [facility] 12:00:00 AM Hospital EST Tx/pro/dx inj same drug front desk coordinator 02/18/2019 [facility] 12:00:00 AM Hospital EST Tx/pro/dx inj new drug addon 02/18/2019 [facility] 12:00:00 AM Hospital EST Ther/proph/diag iv inf init 02/18/2019 [facility] [facility] 12:00:00 AM [facility] EST Emergency dept visit 02/18/2019 [facility] 12:00:00 AM [facility] EST Oxygen therapy (procedure) 02/18/2019 [facility] 12:00:00 AM [facility] EST Continuous pulse oximetry 02/18/2019 [facility] (procedure) 12:00:00 AM [facility] EST Diagnostic radiography of chest, 02/18/2019 [facility] [facility] combined posteroanterior and 12:00:00 AM Hospital lateral (procedure) EST INJ HEPARIN SODIUM PER 10 U 02/18/2019 [facility] [facility] 12:00:00 AM Hospital EST NORMAL SALINE SOLUTION INFUS 02/18/2019 [facility] [facility] 12:00:00 AM Hospital EST INJECTION, ONDANSETRON 02/18/2019 [facility] HYDROCHLORIDE, PER 1 MG 12:00:00 AM [facility] EST INJECTION, HYDOMORPHONE, UP TO 4 02/18/2019 [facility] 12:00:00 AM [facility] EST injection Diphenhydramine HCL, 02/18/2019 [facility] [facility] up to 50 MG 12:00:00 AM Hospital EST X-ray exam chest 2 views 02/18/2019 [facility] [place] 12:00:00 AM [facility] EST Comprehen metabolic panel 02/18/2019 [facility] 12:00:00 AM [facility] EST Mr-staph dna amp probe 02/18/2019 [facility] [facility] 12:00:00 AM [facility] EST Automated reticulocyte count 02/18/2019 [facility] [facility] 12:00:00 AM Hospital EST Tx/pro/dx inj same drug front desk coordinator 02/18/2019 [facility] [facility] 12:00:00 AM Hospital EST Tx/pro/dx inj new drug addon 02/18/2019 [facility] 12:00:00 AM [facility] EST Ther/proph/diag iv inf init 02/18/2019 [facility] [facility] 12:00:00 AM Hospital EST Emergency dept visit 02/18/2019 [facility] 12:00:00 AM [facility] EST Oxygen therapy (procedure) 02/18/2019 [facility] 12:00:00 AM [facility] EST Continuous pulse oximetry 02/18/2019 [facility] (procedure) 12:00:00 AM [facility] EST Diagnostic radiography of chest, 02/18/2019 [facility] [facility] combined posteroanterior and 12:00:00 AM Hospital lateral (procedure) EST INJ HEPARIN SODIUM PER 10 U 02/12/2019 [facility] 12:00:00 AM Hospital EST INJECTION, ONDANSETRON 02/12/2019 [facility] HYDROCHLORIDE, PER 1 MG 12:00:00 AM [facility] EST INJECTION, HYDOMORPHONE, UP TO 4 02/12/2019 [facility] 12:00:00 AM [facility] EST injection Diphenhydramine HCL, 02/12/2019 [facility] up to 50 MG 12:00:00 AM Hospital EST DIPHENHYDRAMINE HCL 50MG 02/12/2019 [facility] 12:00:00 AM [facility] EST 5% DEXTROSE/WATER 02/12/2019 [facility] 12:[facility]:00 AM [facility] EST Metabolic panel total ca 02/12/2019 [facility] 12:00:00 AM [facility] EST Automated reticulocyte count 02/12/2019 [facility] [facility] 12:00:00 AM [facility] EST Complete cbc w/auto diff wbc 02/12/2019 [facility] 12:00:00 AM Hospital EST Tx/pro/dx inj new drug addon 02/12/2019 [facility] [facility] 12:00:00 AM [facility] EST Tx/pro/dx inj same drug front desk coordinator 02/12/2019 [facility] [facility] 12:00:00 AM Hospital EST Ther/proph/diag inj iv push 02/12/2019 [facility] [facility] 12:00:00 AM Hospital EST Emergency dept visit 02/12/2019 [place] [facility] 12:00:00 AM [facility] EST INJ HEPARIN SODIUM PER 10 U 02/12/2019 [facility] 12:00:00 AM Hospital EST INJECTION, ONDANSETRON 02/12/2019 [facility] HYDROCHLORIDE, PER 1 MG 12:00:00 AM [facility] EST INJECTION, HYDOMORPHONE, UP TO 4 02/12/2019 [facility] 12:00:00 AM [facility] EST injection Diphenhydramine HCL, 02/12/2019 [facility] up to 50 MG 12:00:00 AM Hospital EST DIPHENHYDRAMINE HCL 50MG 02/12/2019 [facility] 12:00:00 AM [facility] EST 5% DEXTROSE/WATER 02/12/2019 [facility] 12:[facility] AM [facility] EST Metabolic panel total ca 02/12/2019 [facility] 12:00:00 AM [facility] EST Automated reticulocyte count 02/12/2019 [facility] [facility] 12:00:00 AM Hospital EST Complete cbc w/auto diff wbc 02/12/2019 [facility] 12:00:00 AM Hospital EST Tx/pro/dx inj new drug addon 02/12/2019 [facility] [facility] 12:00:00 AM Hospital EST Tx/pro/dx inj same drug front desk coordinator 02/12/2019 [facility] 12:00:00 AM Hospital EST Ther/proph/diag inj iv push 02/12/2019 [facility] 12:00:00 AM Hospital EST Emergency dept visit 02/12/2019 [place] 12:00:00 AM [facility] EST Computed tomography of chest, 01/29/2019 [facility] [facility] abdomen, and pelvis without 12:00:00 AM Hospital contrast EST Computed tomography of chest, 01/29/2019 [facility] [facility] abdomen, and pelvis without 12:00:00 AM Hospital contrast EST Computed tomography of chest, 01/29/2019 [facility] [facility] abdomen, and pelvis without 12:00:00 AM Hospital contrast EST Nebulizer therapy (procedure) 01/28/2019 [facility] [facility] 12:00:00 AM Hospital EST Plain chest X-ray (procedure) 01/28/2019 [facility] [facility] 12:00:00 AM Hospital EST Incentive spirometry 01/28/2019 [place] (regime/therapy) 12:00:00 AM Hospital EST Nebulizer therapy (procedure) 01/28/2019 [facility] [facility] 12:00:00 AM Hospital EST Plain chest X-ray (procedure) 01/28/2019 [facility] [facility] 12:00:00 AM Hospital EST Incentive spirometry 01/28/2019 [place] (regime/therapy) 12:00:00 AM Hospital EST Nebulizer therapy (procedure) 01/28/2019 [facility] [facility] 12:00:00 AM Hospital EST Plain chest X-ray (procedure) 01/28/2019 [facility] 12:00:00 AM Hospital EST Incentive spirometry 01/28/2019 [place] (regime/therapy) 12:00:00 AM Hospital EST Us Abd With Doppler 01/27/[address] [place] [facility] 12:00:00 AM [facility] EST Us Abd With Doppler 01/27/[address] [place] [facility] 12:00:00 AM [facility] EST Us Abd With Doppler 01/27/[address] [facility] 12:00:00 AM [facility] EST Magnetic resonance 01/26/2019 [facility]angiop[facility] 12:00:00 AM [facility] (procedure) EST Ultrasonography of abdomen 01/26/2019 [place] (procedure) 12:00:00 AM [facility] EST Ultrasound scan of lower limb 01/26/2019 [facility] (procedure) 12:00:00 AM [facility] EST Magnetic resonance 01/26/2019 [facility] 12:00:00 [facility] (procedure) EST Ultrasonography of abdomen 01/26/2019 [place] [facility] (procedure) 12:00:00 AM Hospital EST Ultrasound scan of lower limb 01/26/2019 [facility] (procedure) 12:00:00 AM Hospital EST Magnetic resonance 01/26/2019 [facility] 12:00:00 [facility] (procedure) EST Ultrasonography of abdomen 01/26/2019 [place] [facility] (procedure) 12:00:00 AM [facility] EST Ultrasound scan of lower limb 01/26/2019 [facility] (procedure) 12:00:00 AM Hospital EST Computed tomography of chest 01/14/2019 [facility] [facility] without contrast 12:00:00 AM Hospital EST Electrocardiographic procedure 01/14/2019 [facility] (procedure) 12:00:00 AM Hospital EST INJ HEPARIN SODIUM PER 10 U 01/14/2019 [facility] 12:00:00 AM Hospital EST INJECTION, ONDANSETRON 01/14/2019 [facility] HYDROCHLORIDE, PER 1 MG 12:00:00 AM [facility] EST INJECTION, HYDOMORPHONE, UP TO 4 01/14/2019 [facility] 12:00:00 AM [facility] EST injection Diphenhydramine HCL, 01/14/2019 [facility] up to 50 MG 12:00:[address] thorax w/o dye 01/14/2019 [facility] 12:00:00 AM [facility] EST Electrocardiogram tracing 01/14/[facility] 12:00:00 AM [facility] EST Comprehen metabolic panel 01/14/2019 [facility] [place] 12:00:00 AM [facility] EST Prothrombin time 01/14/2019 [place] 12:00:00 AM [facility] EST Complete cbc w/auto diff wbc 01/14/2019 [facility] 12:00:00 AM [facility] EST Thromboplastin time partial 01/14/2019 [facility] 12:00:00 AM [facility] EST Hydrate iv infusion add-on 01/14/2019 [place] [facility] [place] 12:00:00 AM [facility] EST Tx/pro/dx inj same drug front desk coordinator 01/14/2019 [facility] [facility] 12:00:00 AM [facility] EST Tx/pro/dx inj new drug addon 01/14/2019 [facility] 12:00:00 AM Hospital EST Ther/proph/diag inj iv push 01/14/2019 [facility] 12:00:00 AM Hospital EST Emergency dept visit 01/14/2019 [facility] 12:00:00 AM [facility] EST Computed tomography of chest 01/14/2019 [facility] [facility] without contrast 12:00:00 AM Hospital EST Electrocardiographic procedure 01/14/2019 [facility] [facility] (procedure) 12:00:00 AM Hospital EST INJ HEPARIN SODIUM PER 10 U 01/14/2019 [facility] 12:00:00 AM Hospital EST INJECTION, ONDANSETRON 01/14/2019 [facility] HYDROCHLORIDE, PER 1 MG 12:00:00 AM [facility] EST INJECTION, HYDOMORPHONE, UP TO 4 01/14/2019 [facility] 12:00:00 AM [facility] EST injection Diphenhydramine HCL, 01/14/2019 [facility] [facility] up to 50 MG 12:00:[address] thorax w/o dye 01/14/2019 [facility] 12:00:00 AM [facility] EST Electrocardiogram tracing 01/14/2019 [facility] [place] 12:00:00 AM [facility] EST Comprehen metabolic panel 01/14/2019 [facility] [place] 12:00:00 AM [facility] EST Prothrombin time 01/14/2019 [place] 12:00:00 AM [facility] EST Complete cbc w/auto diff wbc 01/14/2019 [facility] [facility] 12:00:00 AM [facility] EST Thromboplastin time partial 01/14/2019 [facility] [facility] 12:00:00 AM [facility] EST Hydrate iv infusion add-on 01/14/2019 [place] 12:00:00 AM [facility] EST Tx/pro/dx inj same drug front desk coordinator 01/14/2019 [facility] [facility] 12:00:00 AM [facility] EST Tx/pro/dx inj new drug addon 01/14/2019 [facility] 12:00:00 AM [facility] EST Ther/proph/diag inj iv push 01/14/2019 [facility] 12:00:00 AM [facility] EST Emergency dept visit 01/14/2019 [facility] 12:00:00 AM [facility] EST Computed tomography of chest 01/14/2019 [facility] [facility] without contrast 12:00:00 AM Hospital EST Electrocardiographic procedure 01/14/2019 [facility] (procedure) 12:00:00 AM Hospital EST INJECTION, HYDOMORPHONE, UP TO 4 01/09/2019 [facility] 12:00:00 AM [facility] EST INJECTION, HYDOMORPHONE, UP TO 4 01/09/2019 [facility] 12:00:00 AM [facility] EST injection Diphenhydramine HCL, 01/09/2019 [facility] up to 50 MG 12:00:00 AM Hospital EST DIPHENHYDRAMINE HCL 50MG 01/09/2019 [facility] 12:[facility] EST X-ray exam chest 2 views 01/09/2019 [facility] [place] 12:00:00 AM [facility] EST Comprehen metabolic panel 01/09/2019 [facility] [place] 12:00:00 AM [facility] EST Urine test 01/09/2019 [facility] 12:00:00 AM [facility] EST Urine culture/colony count 01/09/2019 [facility] 12:00:00 AM [facility] EST Culture aerobic identify 01/09/2019 [facility] 12:00:00 AM [facility] EST Bl smear w/diff wbc count 01/09/2019 [facility] [place] 12:00:00 AM [facility] EST Complete cbc automated 01/09/2019 [facility] 12:00:00 AM [facility] EST Urinalysis auto w/scope 01/09/2019 [facility] 12:00:00 AM [facility] EST Airway inhalation treatment 01/09/2019 [place] [facility] 12:00:00 AM Hospital EST Hydrate iv infusion add-on 01/09/2019 [place] [facility] 12:00:00 AM [facility] EST Tx/pro/dx inj new drug addon 01/09/2019 [place] [facility] 12:00:00 AM [facility] EST Tx/pro/dx inj new drug addon 01/09/2019 [facility] [facility] 12:00:00 AM Hospital EST Tx/pro/dx inj same drug front desk coordinator 01/09/2019 [facility] 12:00:00 AM [facility] EST Ther/proph/diag inj iv push 01/09/2019 [facility] [facility] 12:00:00 AM Hospital EST Emergency dept visit 01/09/2019 [facility] 12:00:00 AM [facility] EST Nebulizer therapy (procedure) 01/09/2019 [facility] [facility] 12:00:00 AM Hospital EST Diagnostic radiography of chest, 01/09/2019 [facility] combined posteroanterior and 12:00:00 AM Hospital lateral (procedure) EST INJ HEPARIN SODIUM PER 10 U 01/09/2019 [facility] [facility] 12:00:00 AM Hospital EST INJECTION, ONDANSETRON 01/09/2019 [facility] HYDROCHLORIDE, PER 1 MG 12:00:00 AM [facility] EST INJECTION, HYDOMORPHONE, UP TO 4 01/09/2019 [facility] 12:00:00 AM [facility] EST INJECTION, HYDOMORPHONE, UP TO 4 01/09/2019 [facility] 12:00:00 AM [facility] EST injection Diphenhydramine HCL, 01/09/2019 [place] [facility] up to 50 MG 12:00:00 AM Hospital EST DIPHENHYDRAMINE HCL 50MG 01/09/[address] [facility] 12:00:00 AM [facility] EST X-ray exam chest 2 views 01/09/[address] [facility] 12:00:00 AM [facility] EST Comprehen metabolic panel 01/09/2019 [facility] 12:00:00 AM [facility] EST Urine test 01/09/2019 [facility] 12:00:00 AM [facility] EST Urine culture/colony count 01/09/2019 [place] [facility] [place] 12:00:00 AM [facility] EST Culture aerobic identify 01/09/[address] [facility] 12:00:00 AM [facility] EST Bl smear w/diff wbc count 01/09/2019 [facility] [place] 12:00:00 AM [facility] EST Complete cbc automated 01/09/2019 [place] [facility] 12:00:00 AM [facility] EST Urinalysis auto w/scope 01/09/2019 [facility] [place] 12:00:00 AM [facility] EST Airway inhalation treatment 01/09/2019 [place] 12:00:00 AM [facility] EST Hydrate iv infusion add-on 01/09/2019 [place] [facility] [place] 12:00:00 AM [facility] EST Tx/pro/dx inj new drug addon 01/09/2019 [place] [facility] 12:00:00 AM [facility] EST Tx/pro/dx inj new drug addon 01/09/2019 [place] [facility] 12:00:00 AM Hospital EST Tx/pro/dx inj same drug front desk coordinator 01/09/2019 [facility] [facility] 12:00:00 AM [facility] EST Ther/proph/diag inj iv push 01/09/2019 [place] [facility] 12:00:00 AM Hospital EST Emergency dept visit 01/09/2019 [facility] 12:00:00 AM [facility] EST Nebulizer therapy (procedure) 01/09/2019 [facility] [facility] 12:00:00 AM Hospital EST Diagnostic radiography of chest, 01/09/2019 [facility] combined posteroanterior and 12:00:00 AM Hospital lateral (procedure) EST Nebulizer therapy (procedure) 01/09/2019 [facility] [facility] 12:00:00 AM Hospital EST Diagnostic radiography of chest, 01/09/2019 [facility] combined posteroanterior and 12:00:00 AM Hospital lateral (procedure) EST INJ HEPARIN SODIUM PER 10 U 01/09/2019 [facility] [facility] 12:00:00 AM Hospital EST INJECTION, ONDANSETRON 01/09/2019 [facility] HYDROCHLORIDE, PER 1 MG 12:00:00 AM [facility] EST Nebulizer therapy (procedure) 12/27/2018 [facility] [facility] 12:00:00 AM Hospital EST Nebulizer therapy (procedure) 12/27/2018 [facility] 12:00:00 AM Hospital EST Electrocardiographic procedure 12/27/2018 [facility] [facility] (procedure) 12:00:00 AM Hospital EST Plain chest X-ray (procedure) 12/27/2018 [facility] [facility] 12:00:00 AM Hospital EST INJ HEPARIN SODIUM PER 10 U 12/27/2018 [facility] [facility] 12:00:00 AM Hospital EST INJECTION, HYDOMORPHONE, UP TO 4 12/27/2018 [facility] 12:00:00 AM [facility] EST INJECTION, HYDOMORPHONE, UP TO 4 12/27/2018 [facility] 12:00:00 AM [facility] EST injection Diphenhydramine HCL, 12/27/2018 [place] [facility] up to 50 MG 12:00:00 AM Hospital EST INJECTION, DEXAMETHSONE SODIUM 12/27/2018 [facility] PHOSPHATE, 1 MG 12:00:00 AM Hospital EST X-ray exam chest 2 views 12/27/2018 [facility] 12:00:[facility] EST Electrocardiogram tracing 12/27/2018 [facility] 12:00:00 AM [facility] EST Assay of troponin qual 12/27/2018 [place] [facility] 12:00:00 AM Hospital EST Assay of lipase 12/27/2018 [facility] [facility] 12:00:00 AM Hospital EST Comprehen metabolic panel 12/27/2018 [facility] [place] 12:00:00 AM [facility] EST Urine test 12/27/2018 [facility] 12:00:00 AM [facility] EST Influenza dna amp probe 12/27/2018 [facility] 12:00:00 AM [facility] EST Culture screen only 12/27/[address] [place] [facility] 12:00:00 AM [facility] EST Strep a ag ia 12/27/2018 [facility] [facility] 12:00:00 AM Hospital EST Automated reticulocyte count 12/27/2018 [facility] [facility] 12:00:00 AM Hospital EST Prothrombin time 12/27/2018 [place] 12:00:00 AM [facility] EST Complete cbc automated 12/27/2018 [place] [facility] 12:00:00 AM Hospital EST Thromboplastin time partial 12/27/2018 [place] [facility] 12:00:00 AM Hospital EST Urinalysis auto w/scope 12/27/2018 [place] [facility] [place] 12:00:00 AM [facility] EST Airway inhalation treatment 12/27/2018 [place] 12:00:00 AM Hospital EST Tx/pro/dx inj new drug addon 12/27/2018 [place] 12:00:00 AM Hospital EST Tx/pro/dx inj same drug front desk coordinator 12/27/2018 [place] [facility] 12:00:00 AM Hospital EST Ther/proph/diag inj iv push 12/27/2018 [facility] [facility] 12:00:00 AM Hospital EST Emergency dept visit 12/27/2018 [facility] 12:00:00 AM [facility] EST Automated reticulocyte count 12/27/2018 [place] [facility] 12:00:00 AM Hospital EST Prothrombin time 12/27/2018 [place] 12:00:00 AM [facility] EST Complete cbc automated 12/27/2018 [place] [facility] 12:00:00 AM Hospital EST Thromboplastin time partial 12/27/2018 [facility] [facility] 12:00:00 AM [facility] EST Urinalysis auto w/scope 12/27/2018 [place] [facility] [place] 12:00:00 AM [facility] EST Airway inhalation treatment 12/27/2018 [place] 12:00:00 AM [facility] EST Tx/pro/dx inj new drug addon 12/27/2018 [place] [facility] 12:00:00 AM Hospital EST Tx/pro/dx inj same drug front desk coordinator 12/27/2018 [place] [facility] 12:00:00 AM [facility] EST Ther/proph/diag inj iv push 12/27/2018 [place] [facility] 12:00:00 AM Hospital EST Emergency dept visit 12/27/2018 [place] 12:00:00 AM [facility] EST Nebulizer therapy (procedure) 12/27/2018 [place] 12:00:00 AM Hospital EST Nebulizer therapy (procedure) 12/27/2018 [place] [facility] 12:00:00 AM Hospital EST Electrocardiographic procedure 12/27/2018 [place] (procedure) 12:00:00 AM Hospital EST Plain chest X-ray (procedure) 12/27/2018 [place] 12:00:00 AM Hospital EST Nebulizer therapy (procedure) 12/27/2018 [place] 12:00:00 AM Hospital EST Nebulizer therapy (procedure) 12/27/2018 [place] 12:00:00 AM Hospital EST Electrocardiographic procedure 12/27/2018 [place] (procedure) 12:00:00 AM Hospital EST Plain chest X-ray (procedure) 12/27/2018 [place] 12:00:00 AM Hospital EST INJ HEPARIN SODIUM PER 10 U 12/27/2018 [place] [facility] 12:00:00 AM Hospital EST INJECTION, HYDOMORPHONE, UP TO 4 12/27/2018 [facility] 12:00:00 AM [facility] EST INJECTION, HYDOMORPHONE, UP TO 4 12/27/2018 [facility] 12:00:00 AM [facility] EST injection Diphenhydramine HCL, 12/27/2018 [place] [facility] up to 50 [facility] 12:00:00 AM Hospital EST INJECTION, DEXAMETHSONE SODIUM 12/27/2018 [facility] [facility] PHOSPHATE, 1 MG 12:00:00 AM Hospital EST X-ray exam chest 2 views 12/27/2018 [facility] 12[facility] EST Electrocardiogram tracing 12/27/2018 [facility] 12[facility]00:00 AM [facility] EST Assay of troponin qual 12/27/2018 [place] 12:00:00 AM Hospital EST Assay of lipase 12/27/2018 [place] 12:00:00 AM Hospital EST Comprehen metabolic panel 12/27/2018 [facility] 12:00:00 AM [facility] EST Urine test 12/27/2018 [place] 12:00:00 AM [facility] EST Influenza dna amp probe 12/27/2018 [facility] [place] 12:00:00 AM [facility] EST Culture screen only 12/27/[address] [place] [facility] 12:00:00 AM [facility] EST Strep a ag ia 12/27/2018 [place] 12:00:00 AM Hospital EST Nebulizer therapy (procedure) 12/22/2018 [place] [facility] 12:00:00 AM Hospital EST Ultrasound scan of upper limb 12/22/2018 [place] [facility] (procedure) 12:00:00 AM Hospital EST Nebulizer therapy (procedure) 12/22/2018 [place] [facility] 12:00:00 AM Hospital EST Electrocardiographic procedure 12/22/2018 [place] (procedure) 12:00:00 AM Hospital EST Plain chest X-ray (procedure) 12/22/2018 [place] 12:00:00 AM Hospital EST INJ HEPARIN SODIUM PER 10 U 12/22/2018 [place] [facility] 12:00:00 AM Hospital EST NORMAL SALINE SOLUTION INFUS 12/22/2018 [place] [facility] 12:00:00 AM Hospital EST INJECTION, HYDOMORPHONE, UP TO 4 12/22/2018 [facility] 12:00:00 AM [facility] EST injection Diphenhydramine HCL, 12/22/2018 [place] up to 50 [facility] 12:00:00 AM Hospital EST Extremity study 12/22/2018 [place] 12:00:00 AM Hospital EST X-ray exam chest 2 views 12/22/2018 [facility] [place] 12:00:[facility] EST Electrocardiogram tracing 12/22/2018 [facility] [place] 12:00:00 AM [facility] EST Assay of troponin qual 12/22/2018 [place] 12:00:00 AM [facility] EST Comprehen metabolic panel 12/22/2018 [facility] [place] 12:00:00 AM [facility] EST Influenza dna amp probe 12/22/2018 [place] [facility] [place] 12:00:00 AM [facility] EST Mr-staph dna amp probe 12/22/2018 [place] 12:00:00 AM [facility] EST Automated reticulocyte count 12/22/2018 [place] 12:00:00 AM Hospital EST Complete cbc w/auto diff wbc 12/22/2018 [place] [facility] 12:00:00 AM Hospital EST Ther/proph/diag inj sc/im 12/22/2018 [facility] [place] 12:00:00 AM [facility] EST Tx/pro/dx inj new drug addon 12/22/2018 [place] 12:00:00 AM Hospital EST Tx/pro/dx inj same drug front desk coordinator 12/22/2018 [place] 12:00:00 AM Hospital EST Tx/pro/dx inj same drug front desk coordinator 12/22/2018 [place] 12:00:00 AM Hospital EST Tx/pro/dx inj same drug front desk coordinator 12/22/2018 [place] 12:00:00 AM Hospital EST Ther/proph/diag inj iv push 12/22/2018 [place] 12:00:00 AM Hospital EST Emergency dept visit 12/22/2018 [facility] 12:00:00 AM [facility] EST Nebulizer therapy (procedure) 12/22/2018 [place] 12:00:00 AM Hospital EST Ultrasound scan of upper limb 12/22/2018 [place] [facility] (procedure) 12:00:00 AM Hospital EST Nebulizer therapy (procedure) 12/22/2018 [place] 12:00:00 AM Hospital EST Electrocardiographic procedure 12/22/2018 [place] (procedure) 12:00:00 AM Hospital EST Plain chest X-ray (procedure) 12/22/2018 [place] 12:00:00 AM Hospital EST INJ HEPARIN SODIUM PER 10 U 12/22/2018 [place] 12:00:00 AM Hospital EST NORMAL SALINE SOLUTION INFUS 12/22/2018 [place] 12:00:00 AM Hospital EST INJECTION, HYDOMORPHONE, UP TO 4 12/22/2018 [facility] 12:00:00 AM [facility] EST injection Diphenhydramine HCL, 12/22/2018 [place] up to 50 [facility] 12:00:00 AM Hospital EST Extremity study 12/22/2018 [place] 12:00:00 AM Hospital EST X-ray exam chest 2 views 12/22/2018 [facility] [place] 12:00:[facility] AM [facility] EST Electrocardiogram tracing 12/22/2018 [facility] 12:00:00 AM [facility] EST Assay of troponin qual 12/22/2018 [place] 12:00:00 AM Hospital EST Comprehen metabolic panel 12/22/2018 [facility] [place] 12:00:00 AM [facility] EST Influenza dna amp probe 12/22/2018 [place] [facility] [place] 12:00:00 AM [facility] EST Mr-staph dna amp probe 12/22/2018 [place] 12:00:00 AM Hospital EST Automated reticulocyte count 12/22/2018 [place] 12:00:00 AM Hospital EST Complete cbc w/auto diff wbc 12/22/2018 [place] 12:00:00 AM Hospital EST Ther/proph/diag inj sc/im 12/22/[place] [facility] [place] 12:00:00 AM [facility] EST Tx/pro/dx inj new drug addon 12/22/2018 [place] 12:00:00 AM Hospital EST Tx/pro/dx inj same drug front desk coordinator 12/22/2018 [place] 12:00:00 AM Hospital EST Tx/pro/dx inj same drug front desk coordinator 12/22/2018 [place] 12:00:00 AM Hospital EST Tx/pro/dx inj same drug front desk coordinator 12/22/2018 [place] 12:00:00 AM Hospital EST Ther/proph/diag inj iv push 12/22/2018 [place] 12:00:00 AM Hospital EST Emergency dept visit 12/22/2018 [facility] 12:00:00 AM [facility] EST Nebulizer therapy (procedure) 12/22/2018 [place] 12:00:00 AM Hospital EST Ultrasound scan of upper limb 12/22/2018 [place] [facility] (procedure) 12:00:00 AM Hospital EST Nebulizer therapy (procedure) 12/22/2018 [place] 12:00:00 AM Hospital EST Electrocardiographic procedure 12/22/2018 [place] (procedure) 12:00:00 AM Hospital EST Plain chest X-ray (procedure) 12/22/2018 [place] 12:00:00 AM Hospital EST Nebulizer therapy (procedure) 12/22/2018 [place] 12:00:00 AM Hospital EST Ultrasound scan of upper limb 12/22/2018 [place] [facility] (procedure) 12:00:00 AM Hospital EST Nebulizer therapy (procedure) 12/22/2018 [place] 12:00:00 AM Hospital EST Electrocardiographic procedure 12/22/2018 [place] (procedure) 12:00:00 AM Hospital EST Plain chest X-ray (procedure) 12/22/2018 [place] 12:00:00 AM Hospital EST INJ HEPARIN SODIUM PER 10 U 12/22/2018 [place] 12:00:00 AM Hospital EST NORMAL SALINE SOLUTION INFUS 12/22/2018 [place] 12:00:00 AM Hospital EST INJECTION, HYDOMORPHONE, UP TO 4 12/22/2018 [facility] 12:00:00 AM [facility] EST injection Diphenhydramine HCL, 12/22/2018 [place] up to 50 [facility] 12:00:00 AM Hospital EST Extremity study 12/22/2018 [place] 12:00:00 AM Hospital EST X-ray exam chest 2 views 12/22/2018 [facility] 12:00:[facility] EST Electrocardiogram tracing 12/22/[facility] 12:00:00 AM [facility] EST Assay of troponin qual 12/22/2018 [place] 12:00:00 AM Hospital EST Comprehen metabolic panel 12/22/2018 [facility] 12:00:00 AM [facility] EST Influenza dna amp probe 12/22/2018 [place] [facility] [place] 12:00:00 AM [facility] EST Mr-staph dna amp probe 12/22/2018 [facility] [facility] 12:00:00 AM [facility] EST Automated reticulocyte count 12/22/2018 [facility] 12:00:00 AM [facility] EST Complete cbc w/auto diff wbc 12/22/2018 [facility] 12:00:00 AM [facility] EST Ther/proph/diag inj sc/im 12/22/2018 [facility] [place] 12:[facility] AM [facility] EST Tx/pro/dx inj new drug addon 12/22/2018 [facility] 12:00:00 AM [facility] EST Tx/pro/dx inj same drug front desk coordinator 12/22/2018 [facility] [facility] 12:00:00 AM Hospital EST Tx/pro/dx inj same drug front desk coordinator 12/22/2018 [facility] [facility] 12:00:00 AM Hospital EST Tx/pro/dx inj same drug front desk coordinator 12/22/2018 [facility] [facility] 12:00:00 AM Hospital EST Ther/proph/diag inj iv push 12/22/2018 [facility] 12:00:00 AM Hospital EST Emergency dept visit 12/22/2018 [place] 12:[facility]:00 AM [facility] EST Incentive spirometry 12/15/2018 [place] (regime/therapy) 12:00:00 AM Hospital EST Incentive spirometry 12/15/2018 [place] (regime/therapy) 12:00:00 AM Hospital EST Incentive spirometry 12/15/2018 [place] (regime/therapy) 12:00:00 AM Hospital EST Incentive spirometry 12/15/2018 [place] (regime/therapy) 12:00:00 AM Hospital EST Incentive spirometry 12/15/2018 [place] (regime/therapy) 12:00:00 AM Hospital EST X-ray of right knee (procedure) 12/10/2018 [facility] [facility] 12:00:00 AM Hospital EDT Diagnostic radiography of chest, 12/10/2018 [facility] combined posteroanterior and 12:00:00 AM Hospital lateral (procedure) EDT Infusion, normal saline 12/10/2018 [place] solution, sterile (500 ml = 1 12:00:00 AM Hospital unit) EDT INJECTION, ONDANSETRON 12/10/2018 [facility] HYDROCHLORIDE, PER 1 MG 12:00:00 AM [facility]osp ital EDT INJECTION, HYDOMORPHONE, UP TO 4 12/10/2018 [facility] 12:00:00 AM Hospital EDT injection Diphenhydramine HCL, 12/10/2018 [facility] [facility] up to 50 MG 12:00:00 AM Hospital EDT X-ray exam of knee 3 12/10/2018 [facility] 12:00:00 AM [facility] EDT X-ray exam chest 2 views 12/10/2018 [place] 12:[facility] AM [facility] EDT Comprehen metabolic panel 12/10/2018 [facility] [place] 12:00:00 AM [facility] EDT Automated reticulocyte count 12/10/2018 [facility] [facility] 12:00:00 AM Hospital EDT Complete cbc w/auto diff wbc 12/10/2018 [facility] [facility] 12:00:00 AM Hospital EDT Hydrate iv infusion add-on 12/10/2018 [place] 12:00:00 AM [facility] EDT Hydrate iv infusion add-on 12/10/2018 [place] 12:00:00 AM [facility] EDT Tx/pro/dx inj new drug addon 12/10/2018 [place] [facility] 12:00:00 AM Hospital EDT Tx/pro/dx inj new drug addon 12/10/2018 [place] [facility] 12:00:00 AM Hospital EDT Tx/pro/dx inj same drug front desk coordinator 12/10/2018 [facility] [facility] 12:00:00 AM Hospital EDT Ther/proph/diag inj iv push 12/10/2018 [facility] [facility] 12:00:00 AM Hospital EDT Emergency dept visit 12/10/2018 [facility] 12:00:00 AM [facility] EDT X-ray of right knee (procedure) 12/10/2018 [facility] 12:00:00 AM Hospital EDT Diagnostic radiography of chest, 12/10/2018 [facility] combined posteroanterior and 12:00:00 AM Hospital lateral (procedure) EDT Infusion, normal saline 12/10/2018 [place] solution, sterile (500 ml = 1 12:00:00 AM Hospital unit) EDT INJECTION, ONDANSETRON 12/10/2018 [facility] HYDROCHLORIDE, PER 1 MG 12:00:00 AM [facility]osp [facility] EDT INJECTION, HYDOMORPHONE, UP TO 4 12/10/2018 [facility] 12:00:00 AM Hospital EDT injection Diphenhydramine HCL, 12/10/2018 [facility] [facility] up to 50 MG 12:00:00 AM Hospital EDT X-ray exam of knee 3 12/10/2018 [facility] 12:00:00 AM [facility] EDT X-ray exam chest 2 views 12/10/2018 [place] 12:00:[facility] AM [facility] EDT Comprehen metabolic panel 12/10/2018 [facility] 12:00:00 AM [facility] EDT Automated reticulocyte count 12/10/2018 [place] [facility] 12:00:00 AM Hospital EDT Complete cbc w/auto diff wbc 12/10/2018 [facility] [facility] 12:00:00 AM Hospital EDT Hydrate iv infusion add-on 12/10/2018 [place] 12:00:00 AM [facility] EDT Hydrate iv infusion add-on 12/10/2018 [place] 12:00:00 AM [facility] EDT Tx/pro/dx inj new drug addon 12/10/2018 [place] [facility] 12:00:00 AM Hospital EDT Tx/pro/dx inj new drug addon 12/10/2018 [place] [facility] 12:00:00 AM Hospital EDT Tx/pro/dx inj same drug front desk coordinator 12/10/2018 [facility] [facility] 12:00:00 AM Hospital EDT Ther/proph/diag inj iv push 12/10/2018 [facility] [facility] 12:00:00 AM Hospital EDT Emergency dept visit 12/10/2018 [facility] 12:00:00 AM [facility] EDT X-ray of right knee (procedure) 12/10/2018 [place] [facility] 12:00:00 AM Hospital EDT Diagnostic radiography of chest, 12/10/2018 [facility] [facility] combined posteroanterior and 12:00:00 AM Hospital lateral (procedure) EDT Infusion, normal saline 12/10/2018 [place] solution, sterile (500 ml = 1 12:00:00 AM Hospital unit) EDT INJECTION, ONDANSETRON 12/10/2018 [place] [facility] HYDROCHLORIDE, PER 1 MG 12:00:00 AM [facility]osp ital EDT INJECTION, HYDOMORPHONE, UP TO 4 12/10/2018 [facility] 12:00:00 AM [facility] EDT injection Diphenhydramine HCL, 12/10/2018 [place] [facility] up to 50 MG 12:00:00 AM Hospital EDT X-ray exam of knee 3 12/10/2018 [facility] 12:00:00 AM [facility] EDT X-ray exam chest 2 views 12/10/2018 [place] 12:00:[facility] AM [facility] EDT Comprehen metabolic panel 12/10/2018 [facility] 12:00:00 AM [facility] EDT Automated reticulocyte count 12/10/2018 [place] [facility] 12:00:00 AM Hospital EDT Complete cbc w/auto diff wbc 12/10/2018 [place] [facility] 12:00:00 AM Hospital EDT Hydrate iv infusion add-on 12/10/2018 [place] 12:00:00 AM [facility] EDT Hydrate iv infusion add-on 12/10/2018 [place] 12:00:00 AM [facility] EDT Tx/pro/dx inj new drug addon 12/10/2018 [place] 12:00:00 AM [facility] EDT Tx/pro/dx inj new drug addon 12/10/2018 [place] [facility] 12:00:00 AM Hospital EDT Tx/pro/dx inj same drug front desk coordinator 12/10/2018 [place] [facility] 12:00:00 AM Hospital EDT Ther/proph/diag inj iv push 12/10/2018 [place] [facility] 12:00:00 AM Hospital EDT Emergency dept visit 12/10/2018 [place] 12:00:00 AM [facility] EDT X-ray of right knee (procedure) 12/10/2018 [place] [facility] 12:00:00 AM Hospital EDT Diagnostic radiography of chest, 12/10/2018 [place] combined posteroanterior and 12:00:00 AM [facility] lateral (procedure) EDT Infusion, normal saline 12/10/2018 [place] solution, sterile (500 ml = 1 12:00:00 AM Hospital unit) EDT INJECTION, ONDANSETRON 12/10/2018 [place] [facility] HYDROCHLORIDE, PER 1 MG 12:00:00 AM Hosp ital EDT INJECTION, HYDOMORPHONE, UP TO 4 12/10/2018 [facility] 12:00:00 AM Hospital EDT injection Diphenhydramine HCL, 12/10/2018 [place] [facility] up to 50 MG 12:00:00 AM Hospital EDT X-ray exam of knee 3 12/10/2018 [facility] 12:00:00 AM Hospital EDT X-ray exam chest 2 views 12/10/2018 [place] 12:00:[facility] AM [facility] EDT Comprehen metabolic panel 12/10/2018 [place] [facility] 12:00:00 AM [facility] EDT Automated reticulocyte count 12/10/2018 [place] 12:00:00 AM Hospital EDT Complete cbc w/auto diff wbc 12/10/2018 [place] 12:00:00 AM Hospital EDT Hydrate iv infusion add-on 12/10/2018 [place] 12:00:00 AM [facility] EDT Hydrate iv infusion add-on 12/10/2018 [place] 12:00:00 AM [facility] EDT Tx/pro/dx inj new drug addon 12/10/2018 [place] 12:00:00 AM Hospital EDT Tx/pro/dx inj new drug addon 12/10/2018 [place] 12:00:00 AM Hospital EDT Tx/pro/dx inj same drug front desk coordinator 12/10/2018 [place] 12:00:00 AM Hospital EDT Ther/proph/diag inj iv push 12/10/2018 [place] 12:00:00 AM Hospital EDT Emergency dept visit 12/10/2018 [facility] 12:00:00 AM [facility] EDT Doppler ultrasound of vessels of 11/25/2018 [facility] [place] both lower extremities 12:00:00 AM [facility] EDT Electrocardiographic procedure 11/25/2018 [facility] [place] (procedure) 12:00:00 AM Hospital EDT INJ HEPARIN SODIUM PER 10 U 11/25/2018 [facility] [place] 12:00:00 AM Hospital EDT INJECTION, ONDANSETRON 11/25/2018 [place] [facility] HYDROCHLORIDE, PER 1 MG 12:00:00 AM [facility] EDT INJECTION, HYDOMORPHONE, UP TO 4 11/25/2018 [facility] 12:00:00 AM [facility] EDT INJECTION, HYDOMORPHONE, UP TO 4 11/25/2018 [facility] 12:00:00 AM [facility] EDT injection Diphenhydramine HCL, 11/25/2018 [place] up to 50 MG 12:00:00 AM Hospital EDT Tx/pro/dx inj new drug addon 11/25/2018 [place] 12:00:00 AM Hospital EDT Tx/pro/dx inj same drug front desk coordinator 11/25/2018 [place] 12:00:00 AM Hospital EDT Ther/proph/diag inj iv push 11/25/2018 [place] 12:00:00 AM Hospital EDT Extremity study 11/25/2018 [place] 12:00:00 AM [facility] EDT Electrocardiogram tracing 11/25/2018 [place] 12:00:00 AM [facility] EDT Comprehen metabolic panel 11/25/2018 [place] 12:00:00 AM [facility] EDT Automated reticulocyte count 11/25/2018 [place] 12:00:00 AM Hospital EDT Complete cbc w/auto diff wbc 11/25/2018 [place] 12:00:00 AM Hospital EDT Emergency dept visit 11/25/2018 [place] 12:00:00 AM Hospital EDT Doppler ultrasound of vessels of 11/25/2018 [place] both lower extremities 12:00:00 AM [facility] EDT Electrocardiographic procedure 11/25/2018 [place] (procedure) 12:00:00 AM Hospital EDT INJ HEPARIN SODIUM PER 10 U 11/25/2018 [place] 12:00:00 AM Hospital EDT INJECTION, ONDANSETRON 11/25/2018 [place] HYDROCHLORIDE, PER 1 MG 12:00:00 AM [facility]osp [facility] EDT INJECTION, HYDOMORPHONE, UP TO 4 11/25/2018 [facility] 12:00:00 AM [facility] EDT INJECTION, HYDOMORPHONE, UP TO 4 11/25/2018 [facility] 12:00:00 AM [facility] EDT injection Diphenhydramine HCL, 11/25/2018 [place] up to 50 MG 12:00:00 AM Hospital EDT Tx/pro/dx inj new drug addon 11/25/2018 [place] 12:00:00 AM Hospital EDT Tx/pro/dx inj same drug front desk coordinator 11/25/2018 [place] 12:00:00 AM Hospital EDT Ther/proph/diag inj iv push 11/25/2018 [place] 12:00:00 AM Hospital EDT Extremity study 11/25/2018 [place] 12:00:00 AM Hospital EDT Electrocardiogram tracing 11/25/2018 [place] 12:00:[facility] AM [facility] EDT Comprehen metabolic panel 11/25/2018 [place] 12[facility]00:00 AM [facility] EDT Automated reticulocyte count 11/25/2018 [place] 12:00:00 AM Hospital EDT Complete cbc w/auto diff wbc 11/25/2018 [place] 12:00:00 AM Hospital EDT Emergency dept visit 11/25/2018 [facility] [place] 12:00:00 AM Hospital EDT Doppler ultrasound of vessels of 11/25/2018 [place] both lower extremities 12:00:00 AM [facility] EDT Electrocardiographic procedure 11/25/2018 [place] (procedure) 12:00:00 AM Hospital EDT Plain chest X-ray (procedure) 11/04/2018 [place] 12:00:00 AM Hospital EDT Electrocardiographic procedure 11/04/2018 [place] (procedure) 12:00:00 AM Hospital EDT INJ HEPARIN SODIUM PER 10 U 11/04/2018 [place] 12:00:00 AM Hospital EDT INJECTION, HYDOMORPHONE, UP TO 4 11/04/2018 [facility] 12:00:00 AM [facility] EDT INJECTION, HYDOMORPHONE, UP TO 4 11/04/2018 [facility] 12:00:00 AM [facility] EDT injection Diphenhydramine HCL, 11/04/2018 [place] up to 50 MG 12:00:00 AM Hospital EDT DIPHENHYDRAMINE HCL 50MG 11/04/2018 [place] 12:00:[facility] AM [facility] EDT X-ray exam chest 1 view 11/04/2018 [place] 12:00:00 AM [facility] EDT Electrocardiogram tracing 11/04/2018 [place] 12:00:00 AM [facility] EDT Comprehen metabolic panel 11/04/2018 [place] 12:00:00 AM [facility] EDT Automated reticulocyte count 11/04/2018 [place] 12:00:00 AM Hospital EDT Complete cbc w/auto diff wbc 11/04/2018 [place] 12:00:00 AM Hospital EDT Urinalysis auto w/scope 11/04/2018 [place] 12:00:00 AM [facility] EDT Hydrate iv infusion add-on 11/04/2018 [place] 12:00:00 AM [facility] EDT Tx/pro/dx inj same drug front desk coordinator 11/04/2018 [place] 12:00:00 AM Hospital EDT Ther/proph/diag inj iv push 11/04/2018 [place] 12:00:00 AM Hospital EDT Emergency dept visit 11/04/2018 [place] 12:00:00 AM Hospital EDT Plain chest X-ray (procedure) 11/04/2018 [place] 12:00:00 AM Hospital EDT Electrocardiographic procedure 11/04/2018 [place] (procedure) 12:00:00 AM Hospital EDT Plain chest X-ray (procedure) 10/26/2018 [place] 12:00:00 AM Hospital EDT Ultrasonography of abdomen 10/26/2018 [place] (procedure) 12:00:00 AM Hospital EDT INJ HEPARIN SODIUM PER 10 U 10/26/2018 [place] 12:00:00 AM Hospital EDT INJECTION, ONDANSETRON 10/26/2018 [place] HYDROCHLORIDE, PER 1 MG 12:00:00 AM [facility] EDT INJECTION, HYDOMORPHONE, UP TO 4 10/26/2018 [facility] 12:00:00 AM Hospital EDT injection Diphenhydramine HCL, 10/26/2018 [place] up to 50 MG 12:00:00 AM Hospital EDT Us exam abdom complete 10/26/2018 [place] 12:00:00 AM Hospital EDT X-ray exam chest 1 view 10/26/2018 [place] 12:00:00 AM [facility] EDT Comprehen metabolic panel 10/26/2018 [place] 12:00:00 AM [facility] EDT Urine test 10/26/2018 [place] 12:00:00 AM [facility] EDT Automated reticulocyte count 10/26/2018 [place] 12:00:00 AM Hospital EDT Complete cbc w/auto diff wbc 10/26/2018 [place] 12:00:00 AM Hospital EDT Urinalysis auto w/scope 10/26/2018 [place] 12:00:00 AM [facility] EDT Hydrate iv infusion add-on 10/26/2018 [place] 12[facility]00:00 AM [facility] EDT Tx/pro/dx inj new drug addon 10/26/2018 [place] 12:00:00 AM Hospital EDT Tx/pro/dx inj new drug addon 10/26/2018 [place] 12:00:00 AM Hospital EDT Tx/pro/dx inj same drug front desk coordinator 10/26/2018 [place] 12:00:00 AM Hospital EDT Ther/proph/diag inj iv push 10/26/2018 [place] 12:00:00 AM Hospital EDT Emergency dept visit 10/26/2018 [place] 12:00:00 AM Hospital EDT Hydrate iv infusion add-on 10/26/2018 [place] 12:00:00 AM [facility] EDT Tx/pro/dx inj new drug addon 10/26/2018 [place] 12:00:00 AM Hospital EDT Tx/pro/dx inj new drug addon 10/26/2018 [place] 12:00:00 AM Hospital EDT Tx/pro/dx inj same drug front desk coordinator 10/26/2018 [place] 12:00:00 AM Hospital EDT Ther/proph/diag inj iv push 10/26/2018 [place] 12:00:00 AM Hospital EDT Emergency dept visit 10/26/2018 [place] 12:00:00 AM Hospital EDT Plain chest X-ray (procedure) 10/26/2018 [place] 12:00:00 AM Hospital EDT Ultrasonography of abdomen 10/26/2018 [place] (procedure) 12:00:00 AM Hospital EDT Plain chest X-ray (procedure) 10/26/2018 [place] 12:00:00 AM Hospital EDT Ultrasonography of abdomen 10/26/2018 [place] (procedure) 12:00:00 AM Hospital EDT INJ HEPARIN SODIUM PER 10 U 10/26/2018 [place] 12:00:00 AM Hospital EDT INJECTION, ONDANSETRON 10/26/2018 [place] HYDROCHLORIDE, PER 1 MG 12:00:00 AM [facility] EDT INJECTION, HYDOMORPHONE, UP TO 4 10/26/2018 [place] [facility] 12:00:00 AM Hospital EDT injection Diphenhydramine HCL, 10/26/2018 [place] up to 50 MG 12:00:00 AM Hospital EDT Us exam abdom complete 10/26/2018 [place] 12:00:00 AM Hospital EDT X-ray exam chest 1 view 10/26/2018 [place] 12:00:00 AM Hospital EDT Comprehen metabolic panel 10/26/2018 [place] 12:00:00 AM [facility] EDT Urine test 10/26/2018 [place] 12:00:00 AM [facility] EDT Automated reticulocyte count 10/26/2018 [place] 12:00:00 AM Hospital EDT Complete cbc w/auto diff wbc 10/26/2018 [place] 12:00:00 AM Hospital EDT Urinalysis auto w/scope 10/26/2018 [place] 12:00:00 AM Hospital EDT INJ HEPARIN SODIUM PER 10 U 10/18/2018 [place] 12:00:00 AM Hospital EDT INJECTION, HYDOMORPHONE, UP TO 4 10/18/2018 [place] [facility] 12:00:00 AM Hospital EDT INJECTION, HYDOMORPHONE, UP TO 4 10/18/2018 [place] [facility] 12:00:00 AM Hospital EDT injection Diphenhydramine HCL, 10/18/2018 [place] up to 50 MG 12:00:00 AM Hospital EDT 5% DEXTROSE/WATER 10/18/2018 [place] 12:[facility] AM [facility] EDT Chorionic gonadotropin assay 10/18/2018 [place] 12:00:00 AM Hospital EDT Comprehen metabolic panel 10/18/2018 [place] 12:00:00 AM Hospital EDT Urine test 10/18/2018 [place] 12:00:00 AM Hospital EDT Automated reticulocyte count 10/18/2018 [place] 12:00:00 AM Hospital EDT Complete cbc w/auto diff wbc 10/18/2018 [place] 12:00:00 AM Hospital EDT Urinalysis auto w/scope 10/18/2018 [place] 12:00:00 AM [facility] EDT Ther/proph/diag inj sc/im 10/18/2018 [place] 12:00:00 AM [facility] EDT Tx/pro/dx inj new drug addon 10/18/2018 [place] 12:00:00 AM Hospital EDT Tx/pro/dx inj same drug front desk coordinator 10/18/2018 [place] 12:00:00 AM Hospital EDT Ther/proph/diag inj iv push 10/18/2018 [place] 12:00:00 AM Hospital EDT Emergency dept visit 10/18/2018 [facility] 12:00:00 AM Hospital EDT INJ HEPARIN SODIUM PER 10 U 10/18/2018 [place] 12:00:00 AM Hospital EDT INJECTION, HYDOMORPHONE, UP TO 4 10/18/2018 [place] [facility] 12:00:00 AM Hospital EDT INJECTION, HYDOMORPHONE, UP TO 4 10/18/2018 [facility] [facility] 12:00:00 AM Hospital EDT injection Diphenhydramine HCL, 10/18/2018 [place] up to 50 MG 12:00:00 AM Hospital EDT 5% DEXTROSE/WATER 10/18/2018 [place] 12:[facility] AM Hospital EDT Chorionic gonadotropin assay 10/18/2018 [place] 12:00:00 AM Hospital EDT Comprehen metabolic panel [facility] Urine test 10/18/2018 [facility] 12:00:00 AM Hospital EDT Automated reticulocyte count 10/18/2018 [place] 12:00:00 AM Hospital EDT Complete cbc w/auto diff wbc 10/18/2018 [place] 12:00:00 AM Hospital EDT Urinalysis auto w/scope 10/18/2018 [facility] [place] 12:00:00 AM Hospital EDT Ther/proph/diag inj sc/im 10/18/2018 [place] 12:00:00 AM Hospital EDT Tx/pro/dx inj new drug addon 10/18/2018 [place] 12:00:00 AM Hospital EDT Tx/pro/dx inj same drug front desk coordinator 10/18/2018 [place] 12:00:00 AM Hospital EDT Ther/proph/diag inj iv push 10/18/2018 [place] 12:00:00 AM Hospital EDT Emergency dept visit 10/18/2018 [facility] 12:00:00 AM Hospital EDT Results ID Date Data Source [id number] 11/29/2019 10:20:00 AM EDT [facility] Name Value Range Interpretation Description Data Sup porting Code Source(s) Document(s ) SARS [place] Coronavirus 2 RNA Presence Respiratory Specimen ROBERT Probe Detection This lab was ordered by [facility] and rep orted by [facility]. ID Date Data Source [id number] 11/20/2019 12:51:00 AM EDT [facility] Name Value Range Interpretation Description Data Sup porting Code Source(s) Document(s ) SARS [place] coronavirus 2 RNA This lab was ordered by [facility] gabe/Cedric and reported by [facility]. ID Date Data Source [id number] 11/07/2019 11:10:00 PM [facility] Name Value Range Interpretation Description Data Sup porting Code Source(s) Document(s ) Hepatitis C NON-REACT [place] virus Ab [facility] [Presence] in Serum ID Date Data Source [id number] 11/07/2019 11:10:00 PM [facility] HIV 1/2/O ANTIBODY TEST DONE BY [facility] CHEMILUMINESCENCE METHOD. Name Value Range Interpretation Description Data Sup porting Code Source(s) Document(s ) HIV 1+2 Ab+HIV1 NON-REACT [place] p24 Ag [facility] [Presence] in Serum or Plasma by Immunoassay ID Date Data Source [id number] 11/07/2019 11:10:00 PM [facility] Name Value Range Interpretation Code Description Data Supporting Source(s) Document(s ) Creatine 79 U/L [place] kinase [facility] [Enzymatic activity/volu me] in Serum or Plasma ID Date Data Source [id number] 11/07/2019 11:10:00 PM [facility] Name Value Range Interpretation Description Data Sup porting Code Source(s) Document(s ) Lactate 577 U/L [place] dehydrogenase [facility] [Enzymatic activity/volume] in Serum or Plasma ID Date Data Source [id number] 11/07/2019 11:10:00 PM EDT [facility] Name Value Range Interpretation Description Data Sup porting Code Source(s) Document(s ) Aspartate 49 U/L [facility] [place] [Enzymatic Hospital activity/volume] in Serum or Plasma ID Date Data Source [id number] 11/07/2019 11:10:00 PM EDT [facility] Name Value Range Interpretation Description Data Sup porting Code Source(s) Document(s ) Alanine 20 U/L [facility] amin[facility] [place] [Enzymatic Hospital activity/volume] in Serum or Plasma ID Date Data Source [id number] 11/07/2019 11:10:00 PM EDT [facility] Value Range Interpretation Description Data Sup porting Code Source(s) Document(s ) Alkaline 150 U/L [place] phosphatase Hospital [Enzymatic activity/volume ] in Serum or Plasma ID Date Data Source [id number] 11/07/2019 11:10:00 PM EDT [facility] Name Value Range Interpretation Description Data Sup porting Code Source(s) Document(s ) Bilirubin.t 2.5 mg/dL [facility] [Mass/volum e] in Serum or Plasma ID Date Data Source [id number] 11/07/2019 11:10:00 PM EDT [facility] Name Value Range Interpretation Code Description Data Isabel rce(s) Supporting Document(s ) Albumin/Glob 0.9 [place] ulin [Mass Hospital Ratio] in Serum or Plasma ID Date Data Source [id number] 11/07/2019 11:10:00 PM EDT [facility] Name Value Range Interpretation Description Data Sup porting Code Source(s) Document(s ) Albumin 3.7 g/dL [place] [Mass/volume Hospital ] in Serum or Plasma ID Date Data Source [id number] 11/07/2019 11:10:00 PM EDT [facility] Name Value Range Interpretation Description Data Sup porting Code Source(s) Document(s ) Protein 7.7 g/dL [place] [Mass/volume Hospital ] in Serum or Plasma ID Date Data Source [id number] 11/07/2019 11:10:00 PM EDT [facility] Name Value Range Interpretation Description Data Sup porting Code Source(s) Document(s ) Calcium 8.3 mg/dL [place] [Mass/volume Hospital ] in Serum or Plasma ID Date Data Source [id number] 11/07/2019 11:10:00 PM EDT [facility] Name Value Range Interpretation Code Description Data Isabel rce(s) Supporting Document(s ) Urea 14.3 [place] nitrogen/[facility] atinine [Mass Ratio] in Serum or Plasma ID Date Data Source [id number] 11/07/2019 11:10:00 PM EDT [facility] Name Value Range Interpretation Description Data Sup porting Code Source(s) Document(s ) Creatinine 0.7 mg/dL [facility] [facility] [Mass/volume] Hospital in Serum or Plasma ID Date Data Source [id number] 11/07/2019 11:10:00 PM EDT [facility] Name Value Range Interpretation Description Data Sup porting Code Source(s) Document(s ) Urea 10 mg/dL [place] nitrogen Hospital [Mass/volume ] in Serum or Plasma ID Date Data Source [id number] 11/07/2019 11:10:00 PM EDT [facility] Name Value Range Interpretation Code Description Data Isabel rce(s) Supporting Document(s ) Anion gap in 13 [place] Serum or Hospital Plasma ID Date Data Source [id number] 11/07/2019 11:10:00 PM EDT [facility] Name Value Range Interpretation Description Data Sup porting Code Source(s) Document(s ) Carbon 29 mmol/L [place] dioxide, Hospital total [Moles/volu me] in Serum or Plasma ID Date Data Source [id number] 11/07/2019 11:10:00 PM EDT [facility] Name Value Range Interpretation Description Data Sup porting Code Source(s) Document(s ) Chloride 103 [place] [Moles/volum mmol/L Hospital e] in Serum or Plasma ID Date Data Source [id number] 11/07/2019 11:10:00 PM EDT [facility] Value Range Interpretation Description Data Sup porting Code Source(s) Document(s ) Potassium 3.9 [place] [Moles/volume mmol/L Hospital ] in Serum or Plasma ID Date Data Source [id number] 11/07/2019 11:10:00 PM EDT [facility] Name Value Range Interpretation Description Data Sup porting Code Source(s) Document(s ) Sodium 141 mmol/L [place] [Moles/volu Hospital me] in Serum or Plasma ID Date Data Source [id number] 11/07/2019 11:10:00 PM EDT [facility] Name Value Range Interpretation Description Data Sup porting Code Source(s) Document(s ) Glucose 97 mg/dL [place] [Mass/volume Hospital ] in Serum or Plasma ID Date Data Source [id number] 11/07/2019 11:10:00 PM EDT [facility] Value Range Interpretation Code Description Data Supporting Source(s) Document(s ) Immature 33.2 % [place] reticulocytes Hospital /Reticulocyte s.total in Blood ID Date Data Source [id number] 11/07/2019 11:10:00 PM EDT [facility] Value Range Interpretation Description Data Sup porting Code Source(s) Document(s ) Reticulocytes 0.32 [place] [#/volume] in 10*6/uL Hospital Blood by Automated count ID Date Data Source [id number] 11/07/2019 11:10:00 PM EDT [facility] Name Value Range Interpretation Description Data Sup porting Code Source(s) Document(s ) Reticulocytes/10 10.68 % [place] 0 erythrocytes Hospital in Blood by Automated count ID Date Data Source [id number] 11/07/2019 11:10:00 PM EDT [facility] Value Range Interpretation Code Description Data Supporting Source(s) Document(s ) NUCLEATED RBCS 0.9 % [place] (AUTO Hospital DIFF%)DIS ID Date Data Source [id number] 11/07/2019 11:10:00 PM EDT [facility] Value Range Interpretation Description Data Sup porting Code Source(s) Document(s ) Differential AUTOMATED [place] cell count [facility] method - Blood ID Date Data Source [id number] 11/07/2019 11:10:00 PM EDT [facility] Value Range Interpretation Description Data Sup porting Code Source(s) Document(s ) Immature 0.05 [place] granulocytes 10*3/uL Hospital [#/volume] in Blood by Automated count ID Date Data Source [id number] 11/07/2019 11:10:00 PM EDT [facility] Value Range Interpretation Description Data Sup porting Code Source(s) Document(s ) Basophils 0.04 [place] [#/volume] in 10*3/uL Hospital Blood by Automated count ID Date Data Source [id number] 11/07/2019 11:10:00 PM EDT [facility] Value Range Interpretation Description Data Sup porting Code Source(s) Document(s ) Eosinophils 0.10 [place] [#/volume] in 10*3/uL Hospital Blood by Automated count ID Date Data Source [id number] 11/07/2019 11:10:00 PM EDT [facility] Name Value Range Interpretation Description Data Sup porting Code Source(s) Document(s ) Monocytes 1.46 [place] [#/volume] in 10*3/uL Hospital Blood by Automated count ID Date Data Source [id number] 11/07/2019 11:10:00 PM EDT [facility] Value Range Interpretation Description Data Sup porting Code Source(s) Document(s ) Lymphocytes 2.22 [place] [#/volume] in 10*3/uL Hospital Blood by Automated count ID Date Data Source [id number] 11/07/2019 11:10:00 PM EDT [facility] Value Range Interpretation Description Data Sup porting Code Source(s) Document(s ) Neutrophils 4.73 [place] [#/volume] in 10*3/uL Hospital Blood by Automated count ID Date Data Source [id number] 11/07/2019 11:10:00 PM EDT [facility] Value Range Interpretation Description Data Sup porting Code Source(s) Document(s ) Nucleated 0.9 % [place] erythrocytes/10 Hospital 0 leukocytes [Ratio] in Blood by Automated count ID Date Data Source [id number] 11/07/2019 11:10:00 PM EDT [facility] Value Range Interpretation Description Data Sup porting Code Source(s) Document(s ) Immature 0.6 % [place] granulocytes/10 Hospital 0 leukocytes in Blood by Automated count ID Date Data Source [id number] 11/07/2019 11:10:00 PM EDT [facility] Value Range Interpretation Description Data Sup porting Code Source(s) Document(s ) Basophils/100 0.5 % [place] leukocytes in Hospital Blood by Automated count ID Date Data Source [id number] 11/07/2019 11:10:00 PM EDT [facility] Name Value Range Interpretation Description Data Sup porting Code Source(s) Document(s ) Eosinophils/100 1.2 % [place] leukocytes in Hospital Blood by Automated count ID Date Data Source [id number] 11/07/2019 11:10:00 PM EDT [facility] Value Range Interpretation Description Data Sup porting Code Source(s) Document(s ) Monocytes/100 17.0 % [place] leukocytes in Hospital Blood by Automated count ID Date Data Source [id number] 11/07/2019 11:10:00 PM EDT [facility] Value Range Interpretation Description Data Sup porting Code Source(s) Document(s ) Lymphocytes/10 25.8 % [place] 0 leukocytes Hospital in Blood by Automated count ID Date Data Source [id number] 11/07/2019 11:10:00 PM EDT [facility] Name Value Range Interpretation Description Data Sup porting Code Source(s) Document(s ) Neutrophils/10 54.9 % [place] 0 leukocytes Hospital in Blood by Automated count ID Date Data Source [id number] 11/07/2019 11:10:00 PM EDT [facility] Value Range Interpretation Description Data Sup porting Code Source(s) Document(s ) Platelet mean 10.5 fL [place] volume Hospital [Entitic volume] in Blood by Automated count ID Date Data Source [id number] 11/07/2019 11:10:00 PM EDT [facility] Name Value Range Interpretation Description Data Sup porting Code Source(s) Document(s ) Platelets 237 [place] [#/volume] in 10*3/uL Hospital Blood by Automated count ID Date Data Source [id number] [facility] Description Data Sup porting Code Source(s) Document(s ) Erythrocyte 19.7 % [facility] Hospital width [Ratio] by Automated count ID Date Data Source [id number] 11/07/2019 11:10:00 PM EDT [facility] Value Range Interpretation Description Data Sup porting Code Source(s) Document(s ) Erythrocyte mean 34.5 [place] corpuscular g/dL Hospital hemoglobin concentration [Mass/volume] by Automated count ID Date Data Source [id number] [facility]/07[facility]ation Description Data Sup porting Code Source(s) Document(s ) Erythrocyte 29.7 pg [facility] corpuscular hemoglobin [Entitic mass] by Automated count ID Date Data Source [id number] 11/07/2019 11:10:00 PM [facility] Value Range Interpretation Description Data Sup porting Code Source(s) Document(s ) Erythrocyte 86.1 fL [facility] corpuscular volume [Entitic volume] by Automated count ID Date Data Source [id number] 11/07/2019 11:10:00 PM [facility] Value Range Interpretation Description Data Sup porting Code Source(s) Document(s ) Hematocrit 25.5 % [place] [Volume Hospital Fraction] of Blood by Automated count ID Date Data Source [id number] 11/07/2019 11:10:00 PM [facility] Value Range Interpretation Description Data Sup porting Code Source(s) Document(s ) Hemoglobin 8.8 g/dL [place] [Mass/volume] Hospital in Blood ID Date Data Source [id number] 11/07/2019 11:10:00 PM EDT [facility] Name Value Range Interpretation Description Data Sup porting Code Source(s) Document(s ) Erythrocytes 2.96 [place] [#/volume] in 10*6/uL Hospital Blood by Automated count ID Date Data Source [id number] 11/07/2019 11:10:00 PM EDT [facility] Name Value Range Interpretation Description Data Sup porting Code Source(s) Document(s ) Leukocytes 8.6 [place] [#/volume] in 10*3/uL Hospital Blood by Automated count ID Date Data Source [id number] 11/07/2019 10:55:00 PM EDT [facility] Buckle Gluer:EYAL HERNANDEZ Name Value Range Interpretation Description Data Sup porting Code Source(s) Document(s ) Choriogonadotropin NEGATIVE [place] ( test) [place] [Presence] in Urine Hospital ID Date Data Source [id number] 10/20/2019 06:05:00 PM EDT [facility] Name Value Range Interpretation Description Data Sup porting Code Source(s) Document(s ) SARS [facility] Coronavirus 2 RNA Presence Respiratory Specimen ROBERT Probe Detection This lab was ordered by [facility] and rep orted by [facility]. ID Date Data Source [id number] 09/19/2019 08:07:00 PM EDT [facility] Name Value Range Interpretation Description Data Sup porting Code Source(s) Document(s ) SARS [facility] coronavirus 2 RNA This lab was ordered by [facility] and reported by [facility]. ID Date Data Source [id number] 09/14/2019 08:10:00 AM EDT [facility] Name Value Range Interpretation Description Data Sup porting Code Source(s) Document(s ) SARS [facility] Coronavirus 2 RNA Presence Respiratory Specimen ROBERT Probe Detection This lab was ordered by [facility] and rep orted by [facility]. ID Date Data Source [id number] 08/25/2019 08:18:00 AM EDT [facility] Name Value Range Interpretation Description Data Sup porting Code Source(s) Document(s ) SARS [facility] Coronavirus 2 RNA Presence Respiratory Specimen ROBERT Probe Detection This lab was ordered by [facility] and rep orted by [facility]. ID Date Data Source [id number] 08/12/2019 07:03:00 PM EDT [facility] Name Value Range Interpretation Code Description Data Supporting Source(s) Document(s ) Immature 33.8 % [place] reticulocytes Hospital /Reticulocyte s.total in Blood ID Date Data Source [id number] 08/12/2019 07:03:00 PM EDT [facility] Name Value Range Interpretation Description Data Sup porting Code Source(s) Document(s ) Reticulocytes 0.32 [place] [#/volume] in 10*6/uL Hospital Blood by Automated count ID Date Data Source [id number] 08/12/2019 07:03:00 PM EDT [facility] Name Value Range Interpretation Description Data Sup porting Code Source(s) Document(s ) Reticulocytes/10 10.01 % [place] 0 erythrocytes Hospital in Blood by Automated count ID Date Data Source [id number] 08/12/2019 07:03:00 PM EDT [facility] Name Value Range Interpretation Code Description Data Supporting Source(s) Document(s ) NUCLEATED RBCS 0.7 % [place] (AUTO Hospital DIFF%)DIS ID Date Data Source [id number] 08/12/2019 07:03:00 PM EDT [facility] Name Value Range Interpretation Description Data Sup porting Code Source(s) Document(s ) Differential AUTOMATED [place] cell count [facility] method - Blood ID Date Data Source [id number] 08/12/2019 07:03:00 PM EDT [facility] Name Value Range Interpretation Description Data Sup porting Code Source(s) Document(s ) Immature 0.03 [place] granulocytes 10*3/uL Hospital [#/volume] in Blood by Automated count ID Date Data Source [id number] 08/12/2019 07:03:00 PM EDT [facility] Name Value Range Interpretation Description Data Sup porting Code Source(s) Document(s ) Basophils 0.06 [place] [#/volume] in 10*3/uL Hospital Blood by Automated count ID Date Data Source [id number] 08/12/2019 07:03:00 PM EDT [facility] Name Value Range Interpretation Description Data Sup porting Code Source(s) Document(s ) Eosinophils 0.06 [place] [#/volume] in 10*3/uL Hospital Blood by Automated count ID Date Data Source [id number] 08/12/2019 07:03:00 PM EDT [facility] Value Range Interpretation Description Data Sup porting Code Source(s) Document(s ) Monocytes 1.27 [place] [#/volume] in 10*3/uL Hospital Blood by Automated count ID Date Data Source [id number] 08/12/2019 07:03:00 PM EDT [facility] Value Range Interpretation Description Data Sup porting Code Source(s) Document(s ) Lymphocytes 2.10 [place] [#/volume] in 10*3/uL Hospital Blood by Automated count ID Date Data Source [id number] 08/12/2019 07:03:00 PM EDT [facility] Name Value Range Interpretation Description Data Sup porting Code Source(s) Document(s ) Neutrophils 4.58 [place] [#/volume] in 10*3/uL Hospital Blood by Automated count ID Date Data Source [id number] 08/12/2019 07:03:00 PM EDT [facility] Name Value Range Interpretation Description Data Sup porting Code Source(s) Document(s ) Nucleated 0.7 % [place] erythrocytes/10 Hospital 0 leukocytes [Ratio] in Blood by Automated count ID Date Data Source [id number] 08/12/2019 07:03:00 PM EDT [facility] Value Range Interpretation Description Data Sup porting Code Source(s) Document(s ) Immature 0.4 % [place] granulocytes/10 Hospital 0 leukocytes in Blood by Automated count ID Date Data Source [id number] 08/12/2019 07:03:00 PM EDT [facility] Value Range Interpretation Description Data Sup porting Code Source(s) Document(s ) Basophils/100 0.7 % [place] leukocytes in Hospital Blood by Automated count ID Date Data Source [id number] 08/12/2019 07:03:00 PM EDT [facility] Value Range Interpretation Description Data Sup porting Code Source(s) Document(s ) Eosinophils/100 0.7 % [place] leukocytes in Hospital Blood by Automated count ID Date Data Source [id number] 08/12/2019 07:03:00 PM EDT [facility] Value Range Interpretation Description Data Sup porting Code Source(s) Document(s ) Monocytes/100 15.7 % [place] leukocytes in Hospital Blood by Automated count ID Date Data Source [id number] 08/12/2019 07:03:00 PM EDT [facility] Value Range Interpretation Description Data Sup porting Code Source(s) Document(s ) Lymphocytes/10 25.9 % [place] 0 leukocytes Hospital in Blood by Automated count ID Date Data Source [id number] 08/12/2019 07:03:00 PM EDT [facility] Value Range Interpretation Description Data Sup porting Code Source(s) Document(s ) Neutrophils/10 56.6 % [place] 0 leukocytes Hospital in Blood by Automated count ID Date Data Source [id number] 08/12/2019 07:03:00 PM [facility] Name Value Range Interpretation Description Data Sup porting Code Source(s) Document(s ) Platelet mean 9.5 fL [place] volume Hospital [Entitic volume] in Blood by Automated count ID Date Data Source [id number] 08/[facility] Interpretation Description Data Sup porting Code Source(s) Document(s ) Platelets 283 [place] [#/volume] in 10*3/uL Hospital Blood by Automated count ID Date Data Source [id number] 08/12/2019 07:03:00 PM [facility] Name Value Range Interpretation Description Data Sup porting Code Source(s) Document(s ) Erythrocyte 19.2 % [facility] Hospital width [Ratio] by Automated count ID Date Data Source [id number] 08/12/2019 07:03:00 PM [facility] Name Value Range Interpretation Description Data Sup porting Code Source(s) Document(s ) Erythrocyte mean 35.6 [place] corpuscular g/dL Hospital hemoglobin concentration [Mass/volume] by Automated count ID Date Data Source [id number] 08/12/2019 07:03:00 PM [facility] Name Value Range Interpretation Description Data Sup porting Code Source(s) Document(s ) Erythrocyte 30.2 pg [facility] corpuscular hemoglobin [Entitic mass] by Automated count ID Date Data Source [id number] 08/12/2019 07:03:00 PM [facility] THIS TEST RESULT HAS BEEN CONFIRMED BY R EPEAT ANALYSIS. Name Value Range Interpretation Description Data Sup porting Code Source(s) Document(s ) Erythrocyte 84.8 fL [place] mean Hospital corpuscular volume [Entitic volume] by Automated count ID Date Data Source [id number] 08/12/2019 07:03:00 PM EDT [facility] Value Range Interpretation Description Data Sup porting Code Source(s) Document(s ) Hematocrit 26.7 % [place] [Volume Hospital Fraction] of Blood by Automated count ID Date Data Source [id number] 08/12/2019 07:03:00 PM EDT [facility] Value Range Interpretation Description Data Sup porting Code Source(s) Document(s ) Hemoglobin 9.5 g/dL [place] [Mass/volume] Hospital in Blood ID Date Data Source [id number] 08/12/2019 07:03:00 PM EDT [facility] Value Range Interpretation Description Data Sup porting Code Source(s) Document(s ) Erythrocytes 3.15 [place] [#/volume] in 10*6/uL [facility] Blood by Automated count ID Date Data Source [id number] 08/12/2019 07:03:00 PM EDT [facility] Value Range Interpretation Description Data Sup porting Code Source(s) Document(s ) Leukocytes 8.1 [place] [#/volume] in 10*3/uL Hospital Blood by Automated count ID Date Data Source [id number] 08/02/2019 04:08:00 PM EDT [facility] Value Range Interpretation Description Data Sup porting Code Source(s) Document(s ) URINE OCCASIONAL [place] EPITHELIAL [facility] CELLS ID Date Data Source [id number] 08/02/2019 04:08:00 PM EDT [facility] Value Range Interpretation Description Data Sup porting Code Source(s) Document(s ) Erythrocytes 3-5 [place] [#/area] in /[HPF] Hospital Urine sediment by Automated count ID Date Data Source [id number] 08/02/2019 04:08:00 PM EDT [facility] Name Value Range Interpretation Description Data Sup porting Code Source(s) Document(s ) Leukocytes 0-3 [place] [#/area] in /[HPF] Hospital Urine sediment by Automated count ID Date Data Source [id number] 08/02/2019 04:08:00 PM EDT [facility] Name Value Range Interpretation Description Data Sup porting Code Source(s) Document(s ) Leukocyte NEGATIVE [place] esterase Hospital [Presence] in Urine by Test strip ID Date Data Source [id number] 08/02/2019 04:08:00 PM EDT [facility] Name Value Range Interpretation Description Data Sup porting Code Source(s) Document(s ) URINE NEGATIVE [place] NITRITES Hospital ID Date Data Source [id number] 08/02/2019 04:08:00 PM EDT [facility] Name Value Range Interpretation Description Data Sup porting Code Source(s) Document(s ) Erythrocytes TRACE [place] [#/volume] in Hospital Urine by Test strip ID Date Data Source [id number] 08/02/2019 04:08:00 PM EDT [facility] Name Value Range Interpretation Code Description Data Isabel rce(s) Supporting Document(s ) Bilirubin. NEGATIVE [place] total Hospital [Presence] in Urine by Test strip ID Date Data Source [id number] 08/02/2019 04:08:00 PM EDT [facility] Value Range Interpretation Description Data Sup porting Code Source(s) Document(s ) Urobilinogen 1.0 [place] [Units/volume] mg/dL Hospital in Urine by Test strip ID Date Data Source [id number] 08/02/2019 04:08:00 PM EDT [facility] Name Value Range Interpretation Description Data Sup porting Code Source(s) Document(s ) Ketones NEGATIVE [place] [Mass/volume Hospital ] in Urine by Test strip ID Date Data Source [id number] 08/02/2019 04:08:00 PM EDT [facility] Name Value Range Interpretation Description Data Sup porting Code Source(s) Document(s ) Glucose NEGATIVE [place] [Mass/volume Hospital ] in Urine by Test strip ID Date Data Source [id number] 08/02/2019 04:08:00 PM EDT [facility] Name Value Range Interpretation Code Description Data Isabel rce(s) Supporting Document(s ) Protein TRACE [place] [Presence] Hospital in Urine by Test strip ID Date Data Source [id number] 08/02/2019 04:08:00 PM EDT [facility] Name Value Range Interpretation Code Description Data Isabel rce(s) Supporting Document(s ) pH of Urine 6.5 [place] by Test Hospital strip ID Date Data Source [id number] 08/02/2019 04:08:00 PM EDT [facility] Value Range Interpretation Code Description Data Supporting Source(s) Document(s ) Specific 1.012 [place] gravity of Hospital Urine by Test strip ID Date Data Source [id number] 08/02/2019 04:08:00 PM EDT [facility] Name Value Range Interpretation Description Data Sup porting Code Source(s) Document(s ) Clarity in Urine CLEAR [place] by [facility] Hospital automated ID Date Data Source [id number] 08/02/2019 04:08:00 PM EDT [facility] Name Value Range Interpretation Code Description Data Isabel rce(s) Supporting Document(s ) Color of YELLOW [place] Urine Hospital ID Date Data Source [id number] 08/02/2019 04:08:00 PM EDT [facility] Name Value Range Interpretation Code Description Data Isabel rce(s) Supporting Document(s ) Protein TRACE [place] [Presence] Hospital in Urine by Test strip ID Date Data Source [id number] 08/02/2019 04:08:00 PM EDT [facility] Name Value Range Interpretation Code Description Data Isabel rce(s) Supporting Document(s ) pH of Urine 6.5 [place] by Test Hospital strip ID Date Data Source [id number] 08/02/2019 04:08:00 PM EDT [facility] Value Range Interpretation Code Description Data Supporting Source(s) Document(s ) Specific 1.012 [place] gravity of Hospital Urine by Test strip ID Date Data Source [id number] 08/02/2019 04:08:00 PM EDT [facility] Name Value Range Interpretation Description Data Sup porting Code Source(s) Document(s ) Clarity in Urine CLEAR [place] by [facility] automated ID Date Data Source [id number] 08/02/2019 04:08:00 PM EDT [facility] Name Value Range Interpretation Code Description Data Isabel rce(s) Supporting Document(s ) Color of YELLOW [place] Urine Hospital ID Date Data Source [id number] 08/02/2019 04:08:00 PM EDT [facility] Name Value Range Interpretation Description Data Sup porting Code Source(s) Document(s ) URINE OCCASIONAL [place] EPITHELIAL Hospital CELLS ID Date Data Source [id number] 08/02/2019 04:08:00 PM EDT [facility] Name Value Range Interpretation Description Data Sup porting Code Source(s) Document(s ) Erythrocytes 3-5 [place] [#/area] in /[HPF] Hospital Urine sediment by Automated count ID Date Data Source [id number] 08/02/2019 04:08:00 PM EDT [facility] Name Value Range Interpretation Description Data Sup porting Code Source(s) Document(s ) Leukocytes 0-3 [place] [#/area] in /[HPF] Hospital Urine sediment by Automated count ID Date Data Source [id number] 08/02/2019 04:08:00 PM EDT [facility] Name Value Range Interpretation Description Data Sup porting Code Source(s) Document(s ) Leukocyte NEGATIVE [place] esterase Hospital [Presence] in Urine by Test strip ID Date Data Source [id number] 08/02/2019 04:08:00 PM EDT [facility] Value Range Interpretation Description Data Sup porting Code Source(s) Document(s ) URINE NEGATIVE [facility] [facility] ID Date Data Source [id number] 08/02/2019 04:08:00 PM EDT [facility] Name Value Range Interpretation Description Data Sup porting Code Source(s) Document(s ) Erythrocytes TRACE [place] [facility] [#/volume] in Hospital Urine by Test strip ID Date Data Source [id number] 08/02/2019 04:08:00 PM EDT [facility] Name Value Range Interpretation Code Description Data Isabel rce(s) Supporting Document(s ) Bilirubin. NEGATIVE [facility] total Hospital [Presence] in Urine by Test strip ID Date Data Source [id number] 08/02/2019 04:08:00 PM EDT [facility] Value Range Interpretation Description Data Sup porting Code Source(s) Document(s ) Urobilinogen 1.0 [place] [facility] [Units/volume] mg/dL Hospital in Urine by Test strip ID Date Data Source [id number] 08/02/2019 04:08:00 PM EDT [facility] Name Value Range Interpretation Description Data Sup porting Code Source(s) Document(s ) Ketones NEGATIVE [facility] [facility] [Mass/volume Hospital ] in Urine by Test strip ID Date Data Source [id number] 08/02/2019 04:08:00 PM EDT [facility] Name Value Range Interpretation Description Data Sup porting Code Source(s) Document(s ) Glucose NEGATIVE [facility] [facility] [Mass/volume Hospital ] in Urine by Test strip ID Date Data Source [id number] 08/02/2019 02:13:00 PM EDT [facility] Name Value Range Interpretation Description Data Sup porting Code Source(s) Document(s ) Aspartate 52 U/L White aminotransferase [facility] [Enzymatic Hospital activity/volume] in Serum or Plasma ID Date Data Source [id number] 08/02/2019 02:13:00 PM EDT [facility] Name Value Range Interpretation Description Data Sup porting Code Source(s) Document(s ) Alanine 23 U/L White aminotransferase [facility] [Enzymatic Hospital activity/volume] in Serum or Plasma ID Date Data Source [id number] 08/02/2019 02:13:00 PM EDT [facility] Name Value Range Interpretation Description Data Sup porting Code Source(s) Document(s ) Alkaline 159 U/L [facility] [facility] phosphatase Hospital [Enzymatic activity/volume ] in Serum or Plasma ID Date Data Source [id number] 08/02/2019 02:13:00 PM EDT [facility] Name Value Range Interpretation Description Data Sup porting Code Source(s) Document(s ) Bilirubin.t 2.6 mg/dL [facility] [Mass/volum e] in Serum or Plasma ID Date Data Source [id number] 08/02/2019 02:13:00 PM EDT [facility] Name Value Range Interpretation Code Description Data Isabel rce(s) Supporting Document(s ) Albumin/Glob 1.0 [facility] [facility] ulin [Mass Hospital Ratio] in Serum or Plasma ID Date Data Source [id number] 08/02/2019 02:13:00 PM EDT [facility] Name Value Range Interpretation Description Data Sup porting Code Source(s) Document(s ) Albumin 3.9 g/dL [facility] [Mass/volume Hospital ] in Serum or Plasma ID Date Data Source [id number] 08/02/2019 02:13:00 PM EDT [facility] Name Value Range Interpretation Description Data Sup porting Code Source(s) Document(s ) Protein 7.7 g/dL [facility] [Mass/volume Hospital ] in Serum or Plasma ID Date Data Source [id number] 08/02/2019 02:13:00 PM EDT [facility] Name Value Range Interpretation Description Data Sup porting Code Source(s) Document(s ) Calcium 8.6 mg/dL [facility] [facility] [Mass/volume Hospital ] in Serum or Plasma ID Date Data Source [id number] 08/02/2019 02:13:00 PM EDT [facility] Name Value Range Interpretation Code Description Data Isabel rce(s) Supporting Document(s ) Urea 16.7 [facility] [facility] nitrogen/Cre Hospital atinine [Mass Ratio] in Serum or Plasma ID Date Data Source [id number] 08/02/2019 02:13:00 PM EDT [facility] Name Value Range Interpretation Description Data Sup porting Code Source(s) Document(s ) Creatinine 0.6 mg/dL [facility] [facility] [Mass/volume] Hospital in Serum or Plasma ID Date Data Source [id number] 08/02/2019 02:13:00 PM EDT [facility] Name Value Range Interpretation Description Data Sup porting Code Source(s) Document(s ) Urea 10 mg/dL [facility] nitrogen [facility] [Mass/volume ] in Serum or Plasma ID Date Data Source [id number] 08/02/2019 02:13:00 PM EDT [facility] Name Value Range Interpretation Code Description Data Isabel rce(s) Supporting Document(s ) Anion gap in 11 [facility] [facility] Serum or [facility] Plasma ID Date Data Source [id number] 08/02/2019 02:13:00 PM EDT [facility] Name Value Range Interpretation Description Data Sup porting Code Source(s) Document(s ) Carbon 26 mmol/L [facility] [facility] dioxide, Hospital total [Moles/volu me] in Serum or Plasma ID Date Data Source [id number] 08/02/2019 02:13:00 PM EDT [facility] Name Value Range Interpretation Description Data Sup porting Code Source(s) Document(s ) Chloride 106 [place] [facility] [Moles/volum mmol/L Hospital e] in Serum or Plasma ID Date Data Source [id number] 08/02/2019 02:13:00 PM EDT [facility] Name Value Range Interpretation Description Data Sup porting Code Source(s) Document(s ) Potassium 4.0 [facility] [facility] [Moles/volume mmol/L Hospital ] in Serum or Plasma ID Date Data Source [id number] 08/02/2019 02:13:00 PM EDT [facility] Name Value Range Interpretation Description Data Sup porting Code Source(s) Document(s ) Sodium 139 mmol/L [facility] [Moles/volu Hospital me] in Serum or Plasma ID Date Data Source [id number] 08/02/2019 02:13:00 PM EDT [facility] Name Value Range Interpretation Description Data Sup porting Code Source(s) Document(s ) Glucose 131 mg/dL [facility] [facility] [Mass/volume Hospital ] in Serum or Plasma ID Date Data Source [id number] [facility]2019 [facility] RANGES:UNFRACTIONATED HEPARI N THERAPY: 60-90 SECONDSARGATROBAN THERAPY: 49-99 SECONDS Name Value Range Interpretation Description Data Sup porting Code Source(s) Document(s ) aPTT in 31.2 s [facility] [facility] Platelet poor [facility] plasma by Coagulation assay ID Date Data Source [id number] 08/02/2019 [facility] THERAPEUTIC RANGE FOR STANDARD ORALANTIC OAGULANT THERAPY: 2.0-3.0THERAPEUTIC RANGE FOR HIGH DOSE ORALANTICOAGULANT THERAPY (MECHANICAL HEARTVALVE REPLACEMENT): 2.5-3.5 Name Value Range Interpretation Description Data Sup porting Code Source(s) Document(s ) INR in Platelet 1.1 [facility] [facility] poor plasma by Hospital Coagulation assay ID Date Data Source [id number] 08/02/2019 02:13:00 PM EDT [facility] Name Value Range Interpretation Description Data Sup porting Code Source(s) Document(s ) PT panel - 12.4 s [place] Platelet poor [facility] plasma by Coagulation assay ID Date Data Source [id number] 08/02/2019 [facility] Name Value Range Interpretation Description Data Sup porting Code Source(s) Document(s ) Aspartate 52 U/L White aminotransferase [facility] [Enzymatic Hospital activity/volume] in Serum or Plasma ID Date Data Source [id number] 08/02/2019 [facility] Name Value Range Interpretation Description Data Sup porting Code Source(s) Document(s ) Alanine 23 U/L White aminotransferase [facility] [Enzymatic Hospital activity/volume] in Serum or Plasma ID Date Data Source [id number] 08/02/2019 02:13:00 PM EDT [facility] Name Value Range Interpretation Description Data Sup porting Code Source(s) Document(s ) Alkaline 159 U/L [facility] [Enzymatic activity/volume ] in Serum or Plasma ID Date Data Source [id number] 08/02/2019 02:13:00 PM EDT [facility] Name Value Range Interpretation Description Data Sup porting Code Source(s) Document(s ) Bilirubin.t 2.6 mg/dL [facility] [Mass/volum e] in Serum or Plasma ID Date Data Source [id number] 08/02/2019 [facility] Name Value Range Interpretation Code Description Data Isabel rce(s) Supporting Document(s ) [facility] in Serum or Plasma ID Date Data Source [id number] 08/02/2019 02:13:00 PM EDT [facility] Name Value Range Interpretation Description Data Sup porting Code Source(s) Document(s ) Albumin 3.9 g/dL [facility] [facility] [Mass/volume Hospital ] in Serum or Plasma ID Date Data Source [id number] 08/02/2019 02:13:00 PM EDT [facility] Name Value Range Interpretation Description Data Sup porting Code Source(s) Document(s ) Protein 7.7 g/dL [facility] [facility] [Mass/volume Hospital ] in Serum or Plasma ID Date Data Source [id number] 08/02/2019 [facility] Name Value Range Interpretation Description Data Sup porting Code Source(s) Document(s ) Calcium 8.6 mg/dL [facility] [facility] [Mass/volume Hospital ] in Serum or Plasma ID Date Data Source [id number] 08/02/2019 02:13:00 PM EDT [facility] Name Value Range Interpretation Code Description Data Isabel rce(s) Supporting Document(s ) Urea 16.7 [place] [facility] nitrogen/Cre Hospital atinine [Mass Ratio] in Serum or Plasma ID Date Data Source [id number] 08/02/2019 02:13:00 PM EDT [facility] Name Value Range Interpretation Description Data Sup porting Code Source(s) Document(s ) Creatinine 0.6 mg/dL [facility] [facility] [Mass/volume] Hospital in Serum or Plasma ID Date Data Source [id number] 08/02/2019 02:13:00 PM EDT [facility] Name Value Range Interpretation Description Data Sup porting Code Source(s) Document(s ) Urea 10 mg/dL [facility] [facility] nitrogen Hospital [Mass/volume ] in Serum or Plasma ID Date Data Source [id number] 08/02/2019 02:13:00 PM EDT [facility] Name Value Range Interpretation Code Description Data Isabel rce(s) Supporting Document(s ) Anion gap in 11 [place] Serum or [facility] Plasma ID Date Data Source [id number] 08/02/2019 02:13:00 PM EDT [facility] Name Value Range Interpretation Description Data Sup porting Code Source(s) Document(s ) Carbon 26 mmol/L [place] [facility] dioxide, Hospital total [Moles/volu me] in Serum or Plasma ID Date Data Source [id number] 08/02/2019 02:13:00 PM EDT [facility] Name Value Range Interpretation Description Data Sup porting Code Source(s) Document(s ) Chloride 106 [place] [Moles/volum mmol/L Hospital e] in Serum or Plasma ID Date Data Source [id number] 08/02/2019 02:13:00 PM EDT [facility] Name Value Range Interpretation Description Data Sup porting Code Source(s) Document(s ) Potassium 4.0 [facility] [facility] [Moles/volume mmol/L Hospital ] in Serum or Plasma ID Date Data Source [id number] 08/02/2019 [facility] Name Value Range Interpretation Description Data Sup porting Code Source(s) Document(s ) Sodium 139 mmol/L [facility] [facility] [Moles/volu Hospital fl] in Serum or Plasma ID Date Data Source [id number] 08/02/2019 [facility]:13[facility] Name Value Range Interpretation Description Data Sup porting Code Source(s) Document(s ) Glucose 131 mg/dL [place] [Mass/volume [facility] ] in Serum or Plasma ID Date Data Source [id number] 08/02/2019 02:13:00 PM [facility] THERAPEUTIC RANGES:UNFRACTIONATED HEPARI N THERAPY: 60-90 SECONDSARGATROBAN THERAPY: 49-99 SECONDS Name Value Range Interpretation Description Data Sup porting Code Source(s) Document(s ) aPTT in 31.2 s [place] Platelet poor [facility] plasma by Coagulation assay ID Date Data Source [id number] 08/02/2019 02:13:00 PM [facility] THERAPEUTIC RANGE FOR STANDARD ORALANTIC OAGULANT THERAPY: 2.0-3.0THERAPEUTIC RANGE FOR HIGH DOSE ORALANTICOAGULANT THERAPY (MECHANICAL HEARTVALVE REPLACEMENT): 2.5-3.5 Name Value Range Interpretation Description Data Sup porting Code Source(s) Document(s ) INR in Platelet 1.1 [facility] [facility] poor plasma by Hospital Coagulation assay ID Date Data Source [id number] 08/02/2019 02:13:00 PM [facility] Name Value Range Interpretation Description Data Sup porting Code Source(s) Document(s ) PT panel - 12.4 s [facility] [facility] Platelet poor Hospital plasma by Coagulation assay ID Date Data Source [id number] 08/02/2019 02:13:00 PM EDT [facility] Value Range Interpretation Code Description Data Supporting Source(s) Document(s ) NUCLEATED RBCS 0.6 % [place] (AUTO Hospital DIFF%)DIS ID Date Data Source [id number] 08/02/2019 02:13:00 PM EDT [facility] Value Range Interpretation Description Data Sup porting Code Source(s) Document(s ) Differential AUTOMATED [place] cell count [facility] method - Blood ID Date Data Source [id number] 08/02/2019 02:13:00 PM EDT [facility] Value Range Interpretation Description Data Sup porting Code Source(s) Document(s ) Immature 0.02 [facility] [facility] granulocytes 10*3/uL Hospital [#/volume] in Blood by Automated count ID Date Data Source [id number] 08/02/2019 02:13:00 PM EDT [facility] Value Range Interpretation Description Data Sup porting Code Source(s) Document(s ) Basophils 0.03 [place] [#/volume] in 10*3/uL Hospital Blood by Automated count ID Date Data Source [id number] 08/02/2019 02:13:00 PM EDT [facility] Name Value Range Interpretation Description Data Sup porting Code Source(s) Document(s ) Eosinophils 0.04 [place] [#/volume] in 10*3/uL Hospital Blood by Automated count ID Date Data Source [id number] 08/02/2019 02:13:00 PM EDT [facility] Value Range Interpretation Description Data Sup porting Code Source(s) Document(s ) Monocytes 1.44 [place] [#/volume] in 10*3/uL Hospital Blood by Automated count ID Date Data Source [id number] 08/02/2019 02:13:00 PM EDT [facility] Value Range Interpretation Description Data Sup porting Code Source(s) Document(s ) Lymphocytes 2.62 [place] [#/volume] in 10*3/uL Hospital Blood by Automated count ID Date Data Source [id number] 08/02/2019 02:13:00 PM EDT [facility] Value Range Interpretation Description Data Sup porting Code Source(s) Document(s ) Neutrophils 5.13 [place] [#/volume] in 10*3/uL Hospital Blood by Automated count ID Date Data Source [id number] 08/02/2019 02:13:00 PM EDT [facility] Value Range Interpretation Description Data Sup porting Code Source(s) Document(s ) Nucleated 0.6 % [facility] erythrocytes/10 Hospital 0 leukocytes [Ratio] in Blood by Automated count ID Date Data Source [id number] 08/02/2019 02:13:00 PM EDT [facility] Value Range Interpretation Description Data Sup porting Code Source(s) Document(s ) Immature 0.2 % [facility] granulocytes/10 Hospital 0 leukocytes in Blood by Automated count ID Date Data Source [id number] 08/02/2019 02:13:00 PM EDT [facility] Value Range Interpretation Description Data Sup porting Code Source(s) Document(s ) Basophils/100 0.3 % [facility] [facility] leukocytes in Hospital Blood by Automated count ID Date Data Source [id number] [facility] Description Data Sup porting Code Source(s) Document(s ) Eosinophils/100 0.4 % [place] leukocytes in Hospital Blood by Automated count ID Date Data Source [id number] 08/02/2019 02:13:00 PM EDT [facility] Name Value Range Interpretation Description Data Sup porting Code Source(s) Document(s ) Monocytes/100 15.5 % [facility] leukocytes in Hospital Blood by Automated count ID Date Data Source [id number] 08/02/2019 02:13:00 PM EDT [facility] Name Value Range Interpretation Description Data Sup porting Code Source(s) Document(s ) Lymphocytes/10 28.2 % [place] 0 leukocytes Hospital in Blood by Automated count ID Date Data Source [id number] 08/02/2019 02:13:00 PM EDT [facility] Value Range Interpretation Description Data Sup porting Code Source(s) Document(s ) Neutrophils/10 55.4 % [facility] [facility] 0 leukocytes Hospital in Blood by Automated count ID Date Data Source [id number] 08/02/2019 02:13:00 PM EDT [facility] Name Value Range Interpretation Description Data Sup porting Code Source(s) Document(s ) Platelet mean 9.8 fL [facility] volume Hospital [Entitic volume] in Blood by Automated count ID Date Data Source [id number] 08/02/2019 02:13:00 PM EDT [facility] Value Range Interpretation Description Data Sup porting Code Source(s) Document(s ) Platelets 242 [place] [#/volume] in 10*3/uL Hospital Blood by Automated count ID Date Data Source [id number] 08/02/2019 02:13:00 PM EDT [facility] Name Value Range Interpretation Description Data Sup porting Code Source(s) Document(s ) Erythrocyte 19.3 % [facility] [facility] distribution Hospital width [Ratio] by Automated count ID Date Data Source [id number] 08/02/2019 02:13:00 PM EDT [facility] Name Value Range Interpretation Description Data Sup porting Code Source(s) Document(s ) Erythrocyte mean 37.9 [place] corpuscular g/dL Hospital hemoglobin concentration [Mass/volume] by Automated count ID Date Data Source [id number] 08/02/2019 02:13:00 PM [facility] Name Value Range Interpretation Description Data Sup porting Code Source(s) Document(s ) Erythrocyte 29.9 pg [facility] corpuscular hemoglobin [Entitic mass] by Automated count ID Date Data Source [id number] 08/02/2019 [facility] Name Value Range Interpretation Description Data Sup porting Code Source(s) Document(s ) Erythrocyte 78.8 fL [facility] corpuscular volume [Entitic volume] by Automated count ID Date Data Source [id number] 08/02/2019 02:13:00 PM [facility] NOTIFICATION AND READ BACK OF CRITICAL R ESULTS TO ED RN CORINA JIMENEZ AT 1442 ON 08/02/19 BY Rosenda Lucas. Name Value Range Interpretation Description Data Sup porting Code Source(s) Document(s ) Hematocrit 22.7 % [place] [Volume Hospital Fraction] of Blood by Automated count ID Date Data Source [id number] 08/02/2019 02:13:00 PM [facility] Name Value Range Interpretation Description Data Sup porting Code Source(s) Document(s ) Hemoglobin 8.6 g/dL [facility] [Mass/volume] Hospital in Blood ID Date Data Source [id number] 08/02/2019 02:13:00 PM [facility] Name Value Range Interpretation Description Data Sup porting Code Source(s) Document(s ) Erythrocytes 2.88 [place] [#/volume] in 10*6/uL Hospital Blood by Automated count ID Date Data Source [id number] 08/02/2019 02:13:00 PM [facility] Name Value Range Interpretation Description Data Sup porting Code Source(s) Document(s ) Leukocytes 9.3 [place] [#/volume] in 10*3/uL Hospital Blood by Automated count ID Date Data Source [id number] 07/19/2019 04:29:00 PM [facility] TEST PERFORMED BY [facility] ULTRA SENSITIVE [facility] CHEMILUMINESCENCE METHOD. Name Value Range Interpretation Description Data Sup porting Code Source(s) Document(s ) Troponin < 0.01 [place] I.cardiac ng/mL Hospital [Mass/volume ] in Serum or Plasma ID Date Data Source [id number] 07/19/2019 04:29:00 PM [facility] TEST PERFORMED BY [facility] [facility] ULTRA SENSIT[facility] CHEMILUMINESCENCE METHOD. Name Value Range Interpretation Description Data Sup porting Code Source(s) Document(s ) Troponin < 0.01 [place] I.cardiac ng/mL Hospital [Mass/volume ] in Serum or Plasma ID Date Data Source [id number] 07/19/2019 04:29:00 PM [facility] Name Value Range Interpretation Description Data Sup porting Code Source(s) Document(s ) Aspartate 47 U/L White aminotransferase [facility] [Enzymatic Hospital activity/volume] in Serum or Plasma ID Date Data Source [id number] 07/19/2019 04:29:00 PM [facility] Name Value Range Interpretation Description Data Sup porting Code Source(s) Document(s ) Alanine 18 U/L White aminotransferase [facility] [Enzymatic Hospital activity/volume] in Serum or Plasma ID Date Data Source [id number] 07/19/2019 04:29:00 PM [facility] Name Value Range Interpretation Description Data Sup porting Code Source(s) Document(s ) Alkaline 207 U/L [place] phosphatase Hospital [Enzymatic activity/volume ] in Serum or Plasma ID Date Data Source [id number] 07/19/2019 04:29:00 PM EDT [facility] Name Value Range Interpretation Description Data Sup porting Code Source(s) Document(s ) Bilirubin.t 2.4 mg/dL [facility] [Mass/volum e] in Serum or Plasma ID Date Data Source [id number] 07/19/2019 04:29:00 PM EDT [facility] Name Value Range Interpretation Code Description Data Isabel rce(s) Supporting Document(s ) [facility] in Serum or Plasma ID Date Data Source [id number] 07/19/2019 04:29:00 PM EDT [facility] Name Value Range Interpretation Description Data Sup porting Code Source(s) Document(s ) Albumin 3.9 g/dL [place] [Mass/volume Hospital ] in Serum or Plasma ID Date Data Source [id number] 07/19/2019 04:29:00 PM EDT [facility] Name Value Range Interpretation Description Data Sup porting Code Source(s) Document(s ) Protein 8.3 g/dL [place] [Mass/volume Hospital ] in Serum or Plasma ID Date Data Source [id number] 07/19/2019 04:29:00 PM EDT [facility] Name Value Range Interpretation Description Data Sup porting Code Source(s) Document(s ) Calcium 8.3 mg/dL [place] [Mass/volume Hospital ] in Serum or Plasma ID Date Data Source [id number] 07/19/2019 04:29:00 PM EDT [facility] Name Value Range Interpretation Code Description Data Isabel rce(s) Supporting Document(s ) Urea 18.6 [place] nitrogen/Cre Hospital atinine [Mass Ratio] in Serum or Plasma ID Date Data Source [id number] 07[facility]19[facility]2019 [facility] Name Value Range Interpretation Description Data Sup porting Code Source(s) Document(s ) Creatinine 0.7 mg/dL [place] [Mass/volume] Hospital in Serum or Plasma ID Date Data Source [id number] 07/19/2019 04:29:00 PM EDT [facility] Name Value Range Interpretation Description Data Sup porting Code Source(s) Document(s ) Urea 13 mg/dL [place] nitrogen Hospital [Mass/volume ] in Serum or Plasma ID Date Data Source [id number] [facility]ation Code Description Data Isabel rce(s) Supporting Document(s ) Anion gap in 12 [place] Serum or [facility] Plasma ID Date Data Source [id number] 07/19/2019 04:29:00 PM EDT [facility] Value Range Interpretation Description Data Sup porting Code Source(s) Document(s ) Carbon 26 mmol/L [place] dioxide, Hospital total [Moles/volu me] in Serum or Plasma ID Date Data Source [id number] 07/19/2019 04:29:00 PM EDT [facility] Name Value Range Interpretation Description Data Sup porting Code Source(s) Document(s ) Chloride 105 [place] [Moles/volum mmol/L Hospital e] in Serum or Plasma ID Date Data Source [id number] 07/[facility] Interpretation Description Data Sup porting Code Source(s) Document(s ) Potassium 4.3 [place] [Moles/volume mmol/L Hospital ] in Serum or Plasma ID Date Data Source [id number] 07/19/2019 [facility] Range Interpretation Description Data Sup porting Code Source(s) Document(s ) Sodium 139 mmol/L [place] [Moles/volu Hospital fl] in Serum or Plasma ID Date Data Source [id number] 07/19/2019 04:29:00 PM EDT [facility] Name Value Range Interpretation Description Data Sup porting Code Source(s) Document(s ) Glucose 97 mg/dL [place] [Mass/volume Hospital ] in Serum or Plasma ID Date Data Source [id number] 07/19/2019 [facility] Value Range Interpretation Code Description Data Supporting Source(s) Document(s ) Immature 33.7 % [place] [facility] reticulocytes Hospital /Reticulocyte s.total in Blood ID Date Data Source [id number] 07/19/2019 [facility] Value Range Interpretation Description Data Sup porting Code Source(s) Document(s ) Reticulocytes 0.36 [place] [#/volume] in 10*6/uL [facility] Blood by Automated count ID Date Data Source [id number] 07/19/2019 [facility]29[facility] with manual count. Name Value Range Interpretation Description Data Sup porting Code Source(s) Document(s ) Reticulocytes/10 11.26 % [place] 0 erythrocytes Hospital in Blood by Automated count ID Date Data Source [id number] 07/19/2019 [facility]:29[facility] Name Value Range Interpretation Code Description Data Supporting Source(s) Document(s ) NUCLEATED RBCS 0.7 % [place] (AUTO Hospital DIFF%)DIS ID Date Data Source [id number] 07/19/2019 04:29:00 PM EDT [facility] Name Value Range Interpretation Description Data Sup porting Code Source(s) Document(s ) Differential AUTOMATED [place] [facility] cell count Hospital method - Blood ID Date Data Source [id number] 07/19/2019 04:29:00 PM EDT [facility] Value Range Interpretation Description Data Sup porting Code Source(s) Document(s ) Immature 0.02 [place] granulocytes 10*3/uL Hospital [#/volume] in Blood by Automated count ID Date Data Source [id number] 07/19/2019 04:29:00 PM EDT [facility] Value Range Interpretation Description Data Sup porting Code Source(s) Document(s ) Basophils 0.02 [place] [#/volume] in 10*3/uL [facility] Blood by Automated count ID Date Data Source [id number] [facility] Description Data Sup porting Code Source(s) Document(s ) Eosinophils 0.07 [place] [#/volume] in 10*3/uL Hospital Blood by Automated count ID Date Data Source [id number] 07/19/2019 04:29:00 PM EDT [facility] Value Range Interpretation Description Data Sup porting Code Source(s) Document(s ) Monocytes 0.95 [place] [#/volume] in 10*3/uL Hospital Blood by Automated count ID Date Data Source [id number] 07/19/2019 04:29:00 PM EDT [facility] Value Range Interpretation Description Data Sup porting Code Source(s) Document(s ) Lymphocytes 2.24 [place] [#/volume] in 10*3/uL Hospital Blood by Automated count ID Date Data Source [id number] 07/19/2019 04:29:00 PM EDT [facility] Value Range Interpretation Description Data Sup porting Code Source(s) Document(s ) Neutrophils 4.31 [place] [#/volume] in 10*3/uL Hospital Blood by Automated count ID Date Data Source [id number] 07/19/2019 04:29:00 PM EDT [facility] Value Range Interpretation Description Data Sup porting Code Source(s) Document(s ) Nucleated 0.7 % [place] erythrocytes/10 Hospital 0 leukocytes [Ratio] in Blood by Automated count ID Date Data Source [id number] 07/19/2019 04:29:00 PM EDT [facility] Value Range Interpretation Description Data Sup porting Code Source(s) Document(s ) Immature 0.3 % [facility] granulocytes/10 Hospital 0 leukocytes in Blood by Automated count ID Date Data Source [id number] 07/19/2019 04:29:00 PM EDT [facility] Value Range Interpretation Description Data Sup porting Code Source(s) Document(s ) Basophils/100 0.3 % [place] leukocytes in Hospital Blood by Automated count ID Date Data Source [id number] 07/19/2019 [facility] Interpretation Description Data Sup porting Code Source(s) Document(s ) Eosinophils/100 0.9 % [place] leukocytes in Hospital Blood by Automated count ID Date Data Source [id number] 07/19/2019 04:29:00 PM EDT [facility] Value Range Interpretation Description Data Sup porting Code Source(s) Document(s ) Monocytes/100 12.5 % [place] leukocytes in Hospital Blood by Automated count ID Date Data Source [id number] 07/19/2019 04:29:00 PM EDT [facility] Value Range Interpretation Description Data Sup porting Code Source(s) Document(s ) Lymphocytes/10 29.4 % [place] 0 leukocytes Hospital in Blood by Automated count ID Date Data Source [id number] 07/19/2019 04:29:00 PM EDT [facility] Name Value Range Interpretation Description Data Sup porting Code Source(s) Document(s ) Neutrophils/10 56.6 % [place] 0 leukocytes Hospital in Blood by Automated count ID Date Data Source [id number] 07/19/2019 04:29:00 PM EDT [facility] Value Range Interpretation Description Data Sup porting Code Source(s) Document(s ) Platelet mean 9.9 fL [place] volume Hospital [Entitic volume] in Blood by Automated count ID Date Data Source [id number] 07/19/2019 04:29:00 PM EDT [facility] Value Range Interpretation Description Data Sup porting Code Source(s) Document(s ) Platelets 251 [place] [#/volume] in 10*3/uL Hospital Blood by Automated count ID Date Data Source [id number] 07/19/2019 04:29:00 PM EDT [facility] Value Range Interpretation Description Data Sup porting Code Source(s) Document(s ) Erythrocyte 18.6 % [place] distribution Hospital width [Ratio] by Automated count ID Date Data Source [id number] 07/19/2019 04:29:00 PM EDT [facility] Value Range Interpretation Description Data Sup porting Code Source(s) Document(s ) Erythrocyte mean 37.2 [place] corpuscular g/dL Hospital hemoglobin concentration [Mass/volume] by Automated count ID Date Data Source [id number] 07/19/2019 04:29:00 PM EDT [facility] Value Range Interpretation Description Data Sup porting Code Source(s) Document(s ) Erythrocyte 29.5 pg [facility] [facility] small[facility]ox [facility] Hospital corpuscular hemoglobin [Entitic mass] by Automated count ID Date Data Source [id number] 07/19/2019 04:29:00 PM EDT [facility] Name Value Range Interpretation Description Data Sup porting Code Source(s) Document(s ) Erythrocyte 79.3 fL [facility] [facility] mean Hospital corpuscular volume [Entitic volume] by Automated count ID Date Data Source [id number] 07/19/2019 04:29:00 PM EDT [facility] Name Value Range Interpretation Description Data Sup porting Code Source(s) Document(s ) Hematocrit 25.3 % [place] [Volume Hospital Fraction] of Blood by Automated count ID Date Data Source [id number] 07/19/2019 04:29:00 PM EDT [facility] Name Value Range Interpretation Description Data Sup porting Code Source(s) Document(s ) Hemoglobin 9.4 g/dL [facility] [Mass/volume] Hospital in Blood ID Date Data Source [id number] 07/19/2019 04:29:00 PM EDT [facility] Name Value Range Interpretation Description Data Sup porting Code Source(s) Document(s ) Erythrocytes 3.19 [place] [#/volume] in 10*6/uL Hospital Blood by Automated count ID Date Data Source [id number] 07/19/2019 04:29:00 PM EDT [facility] Name Value Range Interpretation Description Data Sup porting Code Source(s) Document(s ) Leukocytes 7.6 [place] [#/volume] in 10*3/uL Hospital Blood by Automated count ID Date Data Source [id number] 07/19/2019 04:29:00 PM EDT [facility] TEST PERFORMED BY [email or web address] [facility]ENS[facility] CHEMILUMINESCENCE METHOD. Name Value Range Interpretation Description Data Sup porting Code Source(s) Document(s ) Troponin < 0.01 [place] I.cardiac ng/mL Hospital [Mass/volume ] in Serum or Plasma ID Date Data Source [id number] 07/19/2019 04:29:00 PM [facility] Name Value Range Interpretation Code Description Data Supporting Source(s) Document(s ) Immature 33.7 % [place] reticulocytes Hospital /Reticulocyte s.total in Blood ID Date Data Source [id number] 07/19/2019 [facility] Value Range Interpretation Description Data Sup porting Code Source(s) Document(s ) Reticulocytes 0.36 [place] [#/volume] in 10*6/uL Hospital Blood by Automated count ID Date Data Source [id number] 07/19/2019 04:29:00 PM [facility] Verified with manual count. Name Value Range Interpretation Description Data Sup porting Code Source(s) Document(s ) Reticulocytes/10 11.26 % [place] 0 erythrocytes Hospital in Blood by Automated count ID Date Data Source [id number] 06/15/2019 12:21[facility] Name Value Range Interpretation Description Data Sup porting Code Source(s) Document(s ) Protein 7.3 g/dL [place] [Mass/volume Hospital ] in Serum or Plasma ID Date Data Source [id number] 06/15/2019 12:21:00 PM [facility] Name Value Range Interpretation Description Data Sup porting Code Source(s) Document(s ) Calcium 8.7 mg/dL [place] [Mass/volume Hospital ] in Serum or Plasma ID Date Data Source [id number] 06/15/2019 12:21:00 PM [facility] Name Value Range Interpretation Code Description Data Isabel rce(s) Supporting Document(s ) Urea 13.3 [place] nitrogen/Cre Hospital atinine [Mass Ratio] in Serum or Plasma ID Date Data Source [id number] 06/15/2019 12:21:00 PM EDT [facility] Name Value Range Interpretation Description Data Sup porting Code Source(s) Document(s ) Creatinine 0.6 mg/dL [place] [Mass/volume] Hospital in Serum or Plasma ID Date Data Source [id number] 06/15/2019 12:21:00 PM EDT [facility] Name Value Range Interpretation Description Data Sup porting Code Source(s) Document(s ) Urea nitrogen 8 mg/dL [place] [Mass/volume] Hospital in Serum or Plasma ID Date Data Source [id number] 06/15/2019 12:21:00 PM EDT [facility] Value Range Interpretation Code Description Data Isabel rce(s) Supporting Document(s ) Anion gap in 7 [place] Serum or [facility] Plasma ID Date Data Source [id number] 06/15/2019 12:21:00 PM EDT [facility] Value Range Interpretation Description Data Sup porting Code Source(s) Document(s ) Carbon 30 mmol/L [place] dioxide, Hospital total [Moles/volu me] in Serum or Plasma ID Date Data Source [id number] 06/15/2019 12:21:00 PM EDT [facility] Value Range Interpretation Description Data Sup porting Code Source(s) Document(s ) Chloride 104 [place] [Moles/volum mmol/L Hospital e] in Serum or Plasma ID Date Data Source [id number] 06/15/2019 12:21:00 PM EDT [facility] Value Range Interpretation Description Data Sup porting Code Source(s) Document(s ) Potassium 4.0 [place] [Moles/volume mmol/L Hospital ] in Serum or Plasma ID Date Data Source [id number] 06/15/2019 12:21:00 PM EDT [facility] Name Value Range Interpretation Description Data Sup porting Code Source(s) Document(s ) Sodium 137 mmol/L [place] [Moles/volu Hospital fl] in Serum or Plasma ID Date Data Source [id number] 06/15/2019 12:21:00 PM EDT [facility] Name Value Range Interpretation Description Data Sup porting Code Source(s) Document(s ) Glucose 92 mg/dL [place] [Mass/volume Hospital ] in Serum or Plasma ID Date Data Source [id number] 06/15/2019 12:21:00 PM EDT [facility] Value Range Interpretation Code Description Data Supporting Source(s) Document(s ) Immature 32.7 % [place] reticulocytes Hospital /Reticulocyte s.total in Blood ID Date Data Source [id number] 06/15/2019 12:21:00 PM EDT [facility] Value Range Interpretation Description Data Sup porting Code Source(s) Document(s ) Reticulocytes 0.26 [place] [#/volume] in 10*6/uL Hospital Blood by Automated count ID Date Data Source [id number] 06/15/2019 12:21:00 PM EDT [facility] Value Range Interpretation Description Data Sup porting Code Source(s) Document(s ) Reticulocytes/10 8.74 % [place] 0 erythrocytes Hospital in Blood by Automated count ID Date Data Source [id number] 06/15/2019 12:21:00 PM EDT [facility] Value Range Interpretation Code Description Data Supporting Source(s) Document(s ) NUCLEATED RBCS 0.5 % [place] (AUTO Hospital DIFF%)DIS ID Date Data Source [id number] 06/15/2019 12:21:00 PM EDT [facility] Name Value Range Interpretation Description Data Sup porting Code Source(s) Document(s ) Differential AUTOMATED [place] cell count Hospital method - Blood ID Date Data Source [id number] 06/15/2019 12:21:00 PM EDT [facility] Name Value Range Interpretation Description Data Sup porting Code Source(s) Document(s ) Immature 0.05 [place] granulocytes 10*3/uL Hospital [#/volume] in Blood by Automated count ID Date Data Source [id number] 06/15/2019 12:21:00 PM EDT [facility] Name Value Range Interpretation Description Data Sup porting Code Source(s) Document(s ) Basophils 0.05 [place] [#/volume] in 10*3/uL Hospital Blood by Automated count ID Date Data Source [id number] 06/15/2019 12:21:00 PM EDT [facility] Name Value Range Interpretation Description Data Sup porting Code Source(s) Document(s ) Eosinophils 0.07 [place] [#/volume] in 10*3/uL Hospital Blood by Automated count ID Date Data Source [id number] 06/15/2019 12:21:00 PM EDT [facility] Name Value Range Interpretation Description Data Sup porting Code Source(s) Document(s ) Monocytes 1.33 [place] [#/volume] in 10*3/uL Hospital Blood by Automated count ID Date Data Source [id number] 06/15/2019 12:21:00 PM EDT [facility] Name Value Range Interpretation Description Data Sup porting Code Source(s) Document(s ) Lymphocytes 2.13 [place] [#/volume] in 10*3/uL Hospital Blood by Automated count ID Date Data Source [id number] 06/15/2019 12:21:00 PM EDT [facility] Value Range Interpretation Description Data Sup porting Code Source(s) Document(s ) Neutrophils 4.82 [place] [#/volume] in 10*3/uL Hospital Blood by Automated count ID Date Data Source [id number] 06/15/2019 12:21:00 PM EDT [facility] Value Range Interpretation Description Data Sup porting Code Source(s) Document(s ) Nucleated 0.5 % [place] erythrocytes/10 Hospital 0 leukocytes [Ratio] in Blood by Automated count ID Date Data Source [id number] 06/15/2019 12:21:00 PM EDT [facility] Value Range Interpretation Description Data Sup porting Code Source(s) Document(s ) Immature 0.6 % [place] granulocytes/10 Hospital 0 leukocytes in Blood by Automated count ID Date Data Source [id number] 06/15/2019 12:21:00 PM EDT [facility] Value Range Interpretation Description Data Sup porting Code Source(s) Document(s ) Basophils/100 0.6 % [place] leukocytes in Hospital Blood by Automated count ID Date Data Source [id number] 06/15/2019 12:21:00 PM EDT [facility] Value Range Interpretation Description Data Sup porting Code Source(s) Document(s ) Eosinophils/100 0.8 % [place] leukocytes in Hospital Blood by Automated count ID Date Data Source [id number] 06/15/2019 12:21:00 PM EDT [facility] Value Range Interpretation Description Data Sup porting Code Source(s) Document(s ) Monocytes/100 15.7 % [place] leukocytes in Hospital Blood by Automated count ID Date Data Source [id number] 06/15/2019 12:21:00 PM EDT [facility] Name Value Range Interpretation Description Data Sup porting Code Source(s) Document(s ) Lymphocytes/10 25.2 % [place] 0 leukocytes Hospital in Blood by Automated count ID Date Data Source [id number] 06/15/2019 12:21:00 PM EDT [facility] Name Value Range Interpretation Description Data Sup porting Code Source(s) Document(s ) Neutrophils/10 57.1 % [place] 0 leukocytes Hospital in Blood by Automated count ID Date Data Source [id number] 06/15/2019 12:21:00 PM EDT [facility] Value Range Interpretation Description Data Sup porting Code Source(s) Document(s ) Platelet mean 10.0 fL [place] [facility] volume Hospital [Entitic volume] in Blood by Automated count ID Date Data Source [id number] 06/15/2019 12:21:00 PM EDT [facility] Value Range Interpretation Description Data Sup porting Code Source(s) Document(s ) Platelets 273 [place] [#/volume] in 10*3/uL Hospital Blood by Automated count ID Date Data Source [id number] 06/15/2019 12:21:00 PM EDT [facility] Value Range Interpretation Description Data Sup porting Code Source(s) Document(s ) Erythrocyte 19.7 % [place] distribution Hospital width [Ratio] by Automated count ID Date Data Source [id number] 06/15/2019 12:21:00 PM EDT [facility] Value Range Interpretation Description Data Sup porting Code Source(s) Document(s ) Erythrocyte mean 35.2 [place] corpuscular g/dL Hospital hemoglobin concentration [Mass/volume] by Automated count ID Date Data Source [id number] 06/15/2019 12:21:00 PM EDT [facility] Value Range Interpretation Description Data Sup porting Code Source(s) Document(s ) Erythrocyte 29.6 pg [place] mean Hospital corpuscular hemoglobin [Entitic mass] by Automated count ID Date Data Source [id number] 06/15/2019 12:21:00 PM EDT [facility] Name Value Range Interpretation Description Data Sup porting Code Source(s) Document(s ) Erythrocyte 83.8 fL [facility] [facility] mean Hospital corpuscular volume [Entitic volume] by Automated count ID Date Data Source [id number] 06/15/2019 12:21:00 PM EDT [facility] Value Range Interpretation Description Data Sup porting Code Source(s) Document(s ) Hematocrit 24.4 % [place] [Volume Hospital Fraction] of Blood by Automated count ID Date Data Source [id number] 06/15/2019 12:21:00 PM EDT [facility] Value Range Interpretation Description Data Sup porting Code Source(s) Document(s ) Hemoglobin 8.6 g/dL [facility] [facility] [Mass/volume] Hospital in Blood ID Date Data Source [id number] 06/[facility] Description Data Sup porting Code Source(s) Document(s ) Erythrocytes 2.91 [place] [#/volume] in 10*6/uL Hospital Blood by Automated count ID Date Data Source [id number] 06/15/2019 12:21:00 PM EDT [facility] Name Value Range Interpretation Description Data Sup porting Code Source(s) Document(s ) Leukocytes 8.5 [place] [#/volume] in 10*3/uL Hospital Blood by Automated count ID Date Data Source [id number] 06/15/2019 12:21:00 PM EDT [facility] Value Range Interpretation Description Data Sup porting Code Source(s) Document(s ) Aspartate 40 U/L [facility] amin[facility] [place] [Enzymatic Hospital activity/volume] in Serum or Plasma ID Date Data Source [id number] 06/15/2019 12:21:00 PM EDT [facility] Name Value Range Interpretation Description Data Sup porting Code Source(s) Document(s ) Alanine 16 U/L [facility] amin[facility] [place] [Enzymatic Hospital activity/volume] in Serum or Plasma ID Date Data Source [id number] 06/15/2019 12:21:00 PM EDT [facility] Name Value Range Interpretation Description Data Sup porting Code Source(s) Document(s ) Alkaline 215 U/L [place] [facility] phosphatase Hospital [Enzymatic activity/volume ] in Serum or Plasma ID Date Data Source [id number] 06/15/2019 12:21:00 PM EDT [facility] Name Value Range Interpretation Description Data Sup porting Code Source(s) Document(s ) Bilirubin.t 2.1 mg/dL [facility] [Mass/volum e] in Serum or Plasma ID Date Data Source [id number] 06/15/2019 [facility] Interpretation Code Description Data Isabel rce(s) Supporting Document(s ) [facility] in Serum or Plasma ID Date Data Source [id number] 06/15/2019 12:21:00 PM EDT [facility] Name Value Range Interpretation Description Data Sup porting Code Source(s) Document(s ) Albumin 3.8 g/dL [facility] [facility] [Mass/volume Hospital ] in Serum or Plasma ID Date Data Source [id number] 06/15/2019 12:21:00 PM EDT [facility] Name Value Range Interpretation Description Data Sup porting Code Source(s) Document(s ) Aspartate 40 U/L [facility] aminotransferase [place] [Enzymatic Hospital activity/volume] in Serum or Plasma ID Date Data Source [id number] 06/15/2019 12:21:00 PM EDT [facility] Name Value Range Interpretation Description Data Sup porting Code Source(s) Document(s ) Alanine 16 U/L [facility] aminotransferase [place] [Enzymatic Hospital activity/volume] in Serum or Plasma ID Date Data Source [id number] 06/15/2019 12:21:00 PM EDT [facility] Name Value Range Interpretation Description Data Sup porting Code Source(s) Document(s ) Alkaline 215 U/L [place] [facility] phosphatase Hospital [Enzymatic activity/volume ] in Serum or Plasma ID Date Data Source [id number] [facility] Description Data Sup porting Code Source(s) Document(s ) Bilirubin.t 2.1 mg/dL [facility] [Mass/volum e] in Serum or Plasma ID Date Data Source [id number] 06/[facility] Interpretation Code Description Data Isabel rce(s) Supporting Document(s ) Albumin/Glob 1.1 [place] ulin [Mass Hospital Ratio] in Serum or Plasma ID Date Data Source [id number] 06/15/2019 12:21:00 PM EDT [facility] Name Value Range Interpretation Description Data Sup porting Code Source(s) Document(s ) Albumin 3.8 g/dL [place] [facility] [Mass/volume Hospital ] in Serum or Plasma ID Date Data Source [id number] 06/15/2019 12:21:00 PM EDT [facility] Name Value Range Interpretation Description Data Sup porting Code Source(s) Document(s ) Protein 7.3 g/dL [place] [facility] [Mass/volume Hospital ] in Serum or Plasma ID Date Data Source [id number] 06/15/2019 12:21:00 PM EDT [facility] Name Value Range Interpretation Description Data Sup porting Code Source(s) Document(s ) Calcium 8.7 mg/dL [place] [facility] [Mass/volume Hospital ] in Serum or Plasma ID Date Data Source [id number] 06/15/2019 12:21:00 PM EDT [facility] Name Value Range Interpretation Code Description Data Isabel rce(s) Supporting Document(s ) Urea 13.3 [place] [facility] nitrogen/Cre Hospital atinine [Mass Ratio] in Serum or Plasma ID Date Data Source [id number] 06/15/2019 12:21:00 PM EDT [facility] Value Range Interpretation Description Data Sup porting Code Source(s) Document(s ) Creatinine 0.6 mg/dL [facility] [facility] [Mass/volume] Hospital in Serum or Plasma ID Date Data Source [id number] 06/15/2019 12:21:00 PM EDT [facility] Name Value Range Interpretation Description Data Sup porting Code Source(s) Document(s ) Urea nitrogen 8 mg/dL [facility] [facility] [Mass/volume] Hospital in Serum or Plasma ID Date Data Source [id number] 06/15/2019 12:21:00 PM EDT [facility] Name Value Range Interpretation Code Description Data Isabel rce(s) Supporting Document(s ) Anion gap in 7 [facility] [facility] Serum or Hospital Plasma ID Date Data Source [id number] 06/15/2019 12:21:00 PM EDT [facility] Name Value Range Interpretation Description Data Sup porting Code Source(s) Document(s ) Carbon 30 mmol/L [place] [facility] dioxide, Hospital total [Moles/volu me] in Serum or Plasma ID Date Data Source [id number] 06/[facility] Interpretation Description Data Sup porting Code Source(s) Document(s ) Chloride 104 [place] [Moles/volum mmol/L Hospital e] in Serum or Plasma ID Date Data Source [id number] 06/15/2019 12:21:00 PM EDT [facility] Name Value Range Interpretation Description Data Sup porting Code Source(s) Document(s ) Potassium 4.0 [place] [facility] [Moles/volume mmol/L Hospital ] in Serum or Plasma ID Date Data Source [id number] 06/[facility] Description Data Sup porting Code Source(s) Document(s ) Sodium 137 mmol/L [place] [facility] [Moles/volu Hospital me] in Serum or Plasma ID Date Data Source [id number] 06/15/2019 [facility] Interpretation Description Data Sup porting Code Source(s) Document(s ) Glucose 92 mg/dL [place] [Mass/volume Hospital ] in Serum or Plasma ID Date Data Source [id number] 06/15/2019 [facility] Interpretation Code Description Data Supporting Source(s) Document(s ) Immature 32.7 % [facility] [facility] reticulocytes Hospital /Reticulocyte s.total in Blood ID Date Data Source [id number] 06/15/2019 12:21:00 PM [facility] Value Range Interpretation Description Data Sup porting Code Source(s) Document(s ) Reticulocytes 0.26 [place] [#/volume] in 10*6/uL Hospital Blood by Automated count ID Date Data Source [id number] 06/15/2019 12:21:00 PM EDT [facility] Name Value Range Interpretation Description Data Sup porting Code Source(s) Document(s ) Reticulocytes/10 8.74 % [facility] [facility] 0 erythrocytes Hospital in Blood by Automated count ID Date Data Source [id number] 06/15/2019 12:21:00 PM EDT [facility] Value Range Interpretation Code Description Data Supporting Source(s) Document(s ) NUCLEATED RBCS 0.5 % [place] (AUTO Hospital DIFF%)DIS ID Date Data Source [id number] 06/15/2019 12:21:00 PM EDT [facility] Value Range Interpretation Description Data Sup porting Code Source(s) Document(s ) Differential AUTOMATED [place] cell count [facility] method - Blood ID Date Data Source [id number] 06/15/2019 12:21:00 PM EDT [facility] Name Value Range Interpretation Description Data Sup porting Code Source(s) Document(s ) Immature 0.05 [place] granulocytes 10*3/uL Hospital [#/volume] in Blood by Automated count ID Date Data Source [id number] 06/15/2019 12:21:00 PM EDT [facility] Value Range Interpretation Description Data Sup porting Code Source(s) Document(s ) Basophils 0.05 [place] [#/volume] in 10*3/uL Hospital Blood by Automated count ID Date Data Source [id number] 06/15/2019 [facility] Interpretation Description Data Sup porting Code Source(s) Document(s ) Eosinophils 0.07 [place] [#/volume] in 10*3/uL Hospital Blood by Automated count ID Date Data Source [id number] 06/15/2019 12:21:00 PM EDT [facility] Name Value Range Interpretation Description Data Sup porting Code Source(s) Document(s ) Monocytes 1.33 [place] [#/volume] in 10*3/uL Hospital Blood by Automated count ID Date Data Source [id number] 06/15/2019 12:21:00 PM EDT [facility] Value Range Interpretation Description Data Sup porting Code Source(s) Document(s ) Lymphocytes 2.13 [place] [#/volume] in 10*3/uL Hospital Blood by Automated count ID Date Data Source [id number] 06/15/2019 12:21:00 PM EDT [facility] Value Range Interpretation Description Data Sup porting Code Source(s) Document(s ) Neutrophils 4.82 [place] [#/volume] in 10*3/uL Hospital Blood by Automated count ID Date Data Source [id number] 06/15/2019 12:21:00 PM EDT [facility] Value Range Interpretation Description Data Sup porting Code Source(s) Document(s ) Nucleated 0.5 % [facility] [facility] erythrocytes/10 Hospital 0 leukocytes [Ratio] in Blood by Automated count ID Date Data Source [id number] 06/15/2019 12:21:00 PM EDT [facility] Value Range Interpretation Description Data Sup porting Code Source(s) Document(s ) Immature 0.6 % [facility] [facility] granulocytes/10 Hospital 0 leukocytes in Blood by Automated count ID Date Data Source [id number] 06/15/2019 12:21:00 PM EDT [facility] Value Range Interpretation Description Data Sup porting Code Source(s) Document(s ) Basophils/100 0.6 % [facility] [facility] leukocytes in Hospital Blood by Automated count ID Date Data Source [id number] 06/15/2019 12:21:00 PM EDT [facility] Value Range Interpretation Description Data Sup porting Code Source(s) Document(s ) Eosinophils/100 0.8 % [facility] [facility] leukocytes in Hospital Blood by Automated count ID Date Data Source [id number] 06/15/2019 12:21:00 PM EDT [facility] Name Value Range Interpretation Description Data Sup porting Code Source(s) Document(s ) Monocytes/100 15.7 % [facility] [facility] leukocytes in Hospital Blood by Automated count ID Date Data Source [id number] 06/15/2019 12:21:00 PM EDT [facility] Name Value Range Interpretation Description Data Sup porting Code Source(s) Document(s ) Lymphocytes/10 25.2 % [place] 0 leukocytes Hospital in Blood by Automated count ID Date Data Source [id number] 06/15/2019 12:21:00 PM EDT [facility] Value Range Interpretation Description Data Sup porting Code Source(s) Document(s ) Neutrophils/10 57.1 % [place] 0 leukocytes Hospital in Blood by Automated count ID Date Data Source [id number] 06/15/2019 12:21:00 PM EDT [facility] Value Range Interpretation Description Data Sup porting Code Source(s) Document(s ) Platelet mean 10.0 fL [place] [facility] volume Hospital [Entitic volume] in Blood by Automated count ID Date Data Source [id number] 06/15/2019 12:21:00 PM EDT [facility] Name Value Range Interpretation Description Data Sup porting Code Source(s) Document(s ) Platelets 273 [place] [#/volume] in 10*3/uL Hospital Blood by Automated count ID Date Data Source [id number] 06/15/2019 12:21:00 PM EDT [facility] Value Range Interpretation Description Data Sup porting Code Source(s) Document(s ) Erythrocyte 19.7 % [facility] [facility] distribution Hospital width [Ratio] by Automated count ID Date Data Source [id number] 06/15/2019 12:21:00 PM [facility] Value Range Interpretation Description Data Sup porting Code Source(s) Document(s ) Erythrocyte mean 35.2 [place] corpuscular g/dL Hospital hemoglobin concentration [Mass/volume] by Automated count ID Date Data Source [id number] 06/15/2019 12:21:00 PM [facility] Value Range Interpretation Description Data Sup porting Code Source(s) Document(s ) Erythrocyte 29.6 pg [facility] corpuscular hemoglobin [Entitic mass] by Automated count ID Date Data Source [id number] 06/15/2019 12:21:00 PM [facility] Value Range Interpretation Description Data Sup porting Code Source(s) Document(s ) Erythrocyte 83.8 fL [facility] corpuscular volume [Entitic volume] by Automated count ID Date Data Source [id number] 06/15/2019 12:21:00 PM [facility] Value Range Interpretation Description Data Sup porting Code Source(s) Document(s ) Hematocrit 24.4 % [place] [Volume Hospital Fraction] of Blood by Automated count ID Date Data Source [id number] 06/15/2019 12:21:00 PM [facility] Value Range Interpretation Description Data Sup porting Code Source(s) Document(s ) Hemoglobin 8.6 g/dL [place] [Mass/volume] Hospital in Blood ID Date Data Source [id number] 06/15/2019 12:21:00 PM [facility] Value Range Interpretation Description Data Sup porting Code Source(s) Document(s ) Erythrocytes 2.91 [place] [#/volume] in 10*6/uL Hospital Blood by Automated count ID Date Data Source [id number] 06/15/2019 12:21:00 PM EDT [facility] Name Value Range Interpretation Description Data Sup porting Code Source(s) Document(s ) Leukocytes 8.5 [place] [#/volume] in 10*3/uL Hospital Blood by Automated count ID Date Data Source [id number] 05/22/2019 12:16:00 PM EDT [facility] Name Value Range Interpretation Description Data Sup porting Code Source(s) Document(s ) Lactate 513 U/L [place] dehydrogenase Hospital [Enzymatic activity/volume] in Serum or Plasma ID Date Data Source [id number] 05/22/2019 12:16:00 PM EDT [facility] Name Value Range Interpretation Description Data Sup porting Code Source(s) Document(s ) Aspartate 49 U/L [facility] aminotransferase [place] [Enzymatic Hospital activity/volume] in Serum or Plasma ID Date Data Source [id number] 05/22/2019 12:16:00 PM EDT [facility] Name Value Range Interpretation Description Data Sup porting Code Source(s) Document(s ) Calcium 8.8 mg/dL [place] [Mass/volume Hospital ] in Serum or Plasma ID Date Data Source [id number] 05/22/2019 12:16:00 PM EDT [facility] Name Value Range Interpretation Code Description Data Isabel rce(s) Supporting Document(s ) Urea 14.3 [place] nitrogen/Cre Hospital atinine [Mass Ratio] in Serum or Plasma ID Date Data Source [id number] 05/22/2019 12:16:00 PM EDT [facility] Name Value Range Interpretation Description Data Sup porting Code Source(s) Document(s ) Creatinine 0.7 mg/dL [place] [Mass/volume] Hospital in Serum or Plasma ID Date Data Source [id number] 05/22/2019 12:16:00 PM EDT [facility] Name Value Range Interpretation Description Data Sup porting Code Source(s) Document(s ) Urea 10 mg/dL [place] nitrogen Hospital [Mass/volume ] in Serum or Plasma ID Date Data Source [id number] 05/22/2019 12:16:00 PM EDT [facility] Name Value Range Interpretation Code Description Data Isabel rce(s) Supporting Document(s ) Anion gap in 14 [place] Serum or [facility] Plasma ID Date Data Source [id number] 05/22/2019 12:16:00 PM EDT [facility] Name Value Range Interpretation Description Data Sup porting Code Source(s) Document(s ) Carbon 27 mmol/L [place] dioxide, Hospital total [Moles/volu me] in Serum or Plasma ID Date Data Source [id number] 05/22/2019 12:16:00 PM EDT [facility] Name Value Range Interpretation Description Data Sup porting Code Source(s) Document(s ) Chloride 102 [place] [Moles/volum mmol/L Hospital e] in Serum or Plasma ID Date Data Source [id number] 05/22/2019 12:16:00 PM EDT [facility] Name Value Range Interpretation Description Data Sup porting Code Source(s) Document(s ) Potassium 3.9 [place] [Moles/volume mmol/L Hospital ] in Serum or Plasma ID Date Data Source [id number] 05/22/2019 12:16:00 PM EDT [facility] Name Value Range Interpretation Description Data Sup porting Code Source(s) Document(s ) Sodium 139 mmol/L [place] [Moles/volu Hospital me] in Serum or Plasma ID Date Data Source [id number] 05/22/2019 12:16:00 PM EDT [facility] Name Value Range Interpretation Description Data Sup porting Code Source(s) Document(s ) Glucose 90 mg/dL [place] [Mass/volume Hospital ] in Serum or Plasma ID Date Data Source [id number] 05/22/2019 12:16:00 PM EDT [facility] Value Range Interpretation Code Description Data Supporting Source(s) Document(s ) Immature 32.6 % [place] reticulocytes Hospital /Reticulocyte s.total in Blood ID Date Data Source [id number] 05/22/2019 12:16:00 PM EDT [facility] Value Range Interpretation Description Data Sup porting Code Source(s) Document(s ) Reticulocytes 0.26 [place] [#/volume] in 10*6/uL Hospital Blood by Automated count ID Date Data Source [id number] 05/22/2019 12:16:00 PM EDT [facility] Value Range Interpretation Description Data Sup porting Code Source(s) Document(s ) Reticulocytes/10 8.63 % [place] 0 erythrocytes Hospital in Blood by Automated count ID Date Data Source [id number] 05/22/2019 12:16:00 PM EDT [facility] Value Range Interpretation Code Description Data Supporting Source(s) Document(s ) NUCLEATED RBCS 0.4 % [place] (AUTO Hospital DIFF%)DIS ID Date Data Source [id number] 05/22/2019 12:16:00 PM EDT [facility] Value Range Interpretation Description Data Sup porting Code Source(s) Document(s ) Differential AUTOMATED [place] cell count [facility] method - Blood ID Date Data Source [id number] 05/22/2019 12:16:00 PM EDT [facility] Value Range Interpretation Description Data Sup porting Code Source(s) Document(s ) Immature 0.06 [place] granulocytes 10*3/uL Hospital [#/volume] in Blood by Automated count ID Date Data Source [id number] 05/22/2019 12:16:00 PM EDT [facility] Value Range Interpretation Description Data Sup porting Code Source(s) Document(s ) Basophils 0.03 [place] [#/volume] in 10*3/uL Hospital Blood by Automated count ID Date Data Source [id number] 05/22/2019 12:16:00 PM EDT [facility] Value Range Interpretation Description Data Sup porting Code Source(s) Document(s ) Eosinophils 0.01 [place] [#/volume] in 10*3/uL Hospital Blood by Automated count ID Date Data Source [id number] 05/22/2019 12:16:00 PM EDT [facility] Value Range Interpretation Description Data Sup porting Code Source(s) Document(s ) Monocytes 1.48 [place] [#/volume] in 10*3/uL Hospital Blood by Automated count ID Date Data Source [id number] 05/22/2019 12:16:00 PM EDT [facility] Value Range Interpretation Description Data Sup porting Code Source(s) Document(s ) Lymphocytes 1.44 [place] [#/volume] in 10*3/uL Hospital Blood by Automated count ID Date Data Source [id number] 05/22/2019 12:16:00 PM EDT [facility] Value Range Interpretation Description Data Sup porting Code Source(s) Document(s ) Neutrophils 6.31 [place] [#/volume] in 10*3/uL Hospital Blood by Automated count ID Date Data Source [id number] 05/22/2019 12:16:00 PM EDT [facility] Name Value Range Interpretation Description Data Sup porting Code Source(s) Document(s ) Nucleated 0.4 % [place] erythrocytes/10 Hospital 0 leukocytes [Ratio] in Blood by Automated count ID Date Data Source [id number] 05/22/2019 12:16:00 PM EDT [facility] Name Value Range Interpretation Description Data Sup porting Code Source(s) Document(s ) Immature 0.6 % [place] granulocytes/10 Hospital 0 leukocytes in Blood by Automated count ID Date Data Source [id number] 05/22/2019 12:16:00 PM EDT [facility] Value Range Interpretation Description Data Sup porting Code Source(s) Document(s ) Basophils/100 0.3 % [place] leukocytes in Hospital Blood by Automated count ID Date Data Source [id number] 05/22/2019 12:16:00 PM EDT [facility] Value Range Interpretation Description Data Sup porting Code Source(s) Document(s ) Eosinophils/100 0.1 % [place] leukocytes in Hospital Blood by Automated count ID Date Data Source [id number] 05/22/2019 12:16:00 PM EDT [facility] Name Value Range Interpretation Description Data Sup porting Code Source(s) Document(s ) Monocytes/100 15.9 % [place] leukocytes in Hospital Blood by Automated count ID Date Data Source [id number] 05/22/2019 12:16:00 PM EDT [facility] Name Value Range Interpretation Description Data Sup porting Code Source(s) Document(s ) Lymphocytes/10 15.4 % [place] 0 leukocytes Hospital in Blood by Automated count ID Date Data Source [id number] 05/22/2019 12:16:00 PM EDT [facility] Name Value Range Interpretation Description Data Sup porting Code Source(s) Document(s ) Neutrophils/10 67.7 % [place] 0 leukocytes Hospital in Blood by Automated count ID Date Data Source [id number] 05/22/2019 12:16:00 PM EDT [facility] Value Range Interpretation Description Data Sup porting Code Source(s) Document(s ) Platelet mean 9.8 fL [facility] [facility] volume Hospital [Entitic volume] in Blood by Automated count ID Date Data Source [id number] 05/22/2019 12:16:00 PM EDT [facility] Value Range Interpretation Description Data Sup porting Code Source(s) Document(s ) Platelets 222 [place] [#/volume] in 10*3/uL Hospital Blood by Automated count ID Date Data Source [id number] 05/22/2019 12:16:00 PM [facility] Value Range Interpretation Description Data Sup porting Code Source(s) Document(s ) Erythrocyte 19.8 % [facility] Hospital width [Ratio] by Automated count ID Date Data Source [id number] 05/22/2019 12:16:00 PM [facility] Value Range Interpretation Description Data Sup porting Code Source(s) Document(s ) Erythrocyte mean 34.1 [place] corpuscular g/dL Hospital hemoglobin concentration [Mass/volume] by Automated count ID Date Data Source [id number] 05/22/2019 [facility] Description Data Sup porting Code Source(s) Document(s ) Erythrocyte 28.9 pg [facility] corpuscular hemoglobin [Entitic mass] by Automated count ID Date Data Source [id number] 05/22/2019 12:16:00 PM [facility] Value Range Interpretation Description Data Sup porting Code Source(s) Document(s ) Erythrocyte 84.9 fL [facility] corpuscular volume [Entitic volume] by Automated count ID Date Data Source [id number] 05/22/2019 12:16:00 PM EDT [facility] Name Value Range Interpretation Description Data Sup porting Code Source(s) Document(s ) Hematocrit 25.8 % [place] [Volume Hospital Fraction] of Blood by Automated count ID Date Data Source [id number] 05/22/2019 12:16:00 PM EDT [facility] Name Value Range Interpretation Description Data Sup porting Code Source(s) Document(s ) Hemoglobin 8.8 g/dL [facility] [Mass/volume] Hospital in Blood ID Date Data Source [id number] 05/22/2019 12:16:00 PM EDT [facility] Name Value Range Interpretation Description Data Sup porting Code Source(s) Document(s ) Erythrocytes 3.04 [place] [#/volume] in 10*6/uL Hospital Blood by Automated count ID Date Data Source [id number] 05/22/2019 12:16:00 PM EDT [facility] Name Value Range Interpretation Description Data Sup porting Code Source(s) Document(s ) Leukocytes 9.3 [place] [#/volume] in 10*3/uL Hospital Blood by Automated count ID Date Data Source [id number] 05/22/2019 12:16:00 PM EDT [facility] Name Value Range Interpretation Description Data Sup porting Code Source(s) Document(s ) Haptoglobin < 8 mg/dL [place] [Mass/volume] Hospital in Serum or Plasma ID Date Data Source [id number] 05/22/2019 12:16:00 PM EDT [facility] Name Value Range Interpretation Description Data Sup porting Code Source(s) Document(s ) Lactate 513 U/L [facility] dehydrogenase Hospital [Enzymatic activity/volume] in Serum or Plasma ID Date Data Source [id number] 05/22/2019 12:16:00 PM EDT [facility] Center Name Value Range Interpretation Description Data Sup porting Code Source(s) Document(s ) Alanine 20 U/L [place] aminotransferase [facility] [Enzymatic [facility] activity/volume] in Serum or Plasma ID Date Data Source [id number] 05/22/2019 12:16:00 PM EDT [facility] Name Value Range Interpretation Description Data Sup porting Code Source(s) Document(s ) Alkaline 177 U/L [place] phosphatase Hospital [Enzymatic activity/volume ] in Serum or Plasma ID Date Data Source [id number] 05/[facility]2019 [facility] Interpretation Description Data Sup porting Code Source(s) Document(s ) Bilirubin.t 2.7 mg/dL [facility] [Mass/volum e] in Serum or Plasma ID Date Data Source [id number] 05/22/2019 [facility] Value Range Interpretation Code Description Data Isabel rce(s) Supporting Document(s ) [facility] in Serum or Plasma ID Date Data Source [id number] 05/22/2019 12:16[facility] Name Value Range Interpretation Description Data Sup porting Code Source(s) Document(s ) Albumin 4.1 g/dL [place] [Mass/volume Hospital ] in Serum or Plasma ID Date Data Source [id number] 05/22/2019 12:16[facility] Name Value Range Interpretation Description Data Sup porting Code Source(s) Document(s ) Protein 8.2 g/dL [place] [Mass/volume Hospital ] in Serum or Plasma ID Date Data Source [id number] 05/04/2019 02:02:00 PM EDT [facility] Name Value Range Interpretation Description Data Sup porting Code Source(s) Document(s ) Choriogonadotropin NEGATIVE [place] ( test) [facility] [Presence] in Urine Hospital ID Date Data Source [id number] 05/04/2019 02:02:00 PM EDT [facility] Name Value Range Interpretation Description Data Sup porting Code Source(s) Document(s ) Choriogonadotropin NEGATIVE [place] ( test) [facility] [Presence] in Urine Hospital ID Date Data Source [id number] 05/04/2019 01:20:00 PM EDT [facility] Name Value Range Interpretation Description Data Sup porting Code Source(s) Document(s ) Aspartate 55 U/L [place] aminotransferase [facility] [[facility]atic Hospital activity/volume] in Serum or Plasma ID Date Data Source [id number] 05/04/2019 01:20:00 PM EDT [facility] Name Value Range Interpretation Description Data Sup porting Code Source(s) Document(s ) Alanine 22 U/L [place] aminotransferase [facility] [[facility]atic [facility] activity/volume] in Serum or Plasma ID Date Data Source [id number] 05/04/2019 [facility] Value Range Interpretation Description Data Sup porting Code Source(s) Document(s ) Alkaline 228 U/L [place] [facility] phosphatase [facility] [Enzymatic activity/volume ] in Serum or Plasma ID Date Data Source [id number] 05/04/2019 [facility] Name Value Range Interpretation Description Data Sup porting Code Source(s) Document(s ) Bilirubin.t 2.3 mg/dL [facility] [Mass/volum e] in Serum or Plasma ID Date Data Source [id number] 05/04/2019 01:20:00 PM EDT [facility] Name Value Range Interpretation Code Description Data Isabel rce(s) Supporting Document(s ) Albumin/Glob 1.0 [place] ulin [Mass Hospital Ratio] in Serum or Plasma ID Date Data Source [id number] 05/04/2019 01:20:00 PM EDT [facility] Name Value Range Interpretation Description Data Sup porting Code Source(s) Document(s ) Albumin 4.2 g/dL [place] [Mass/volume Hospital ] in Serum or Plasma ID Date Data Source [id number] 05/04/2019 01:20:00 PM EDT [facility] Name Value Range Interpretation Description Data Sup porting Code Source(s) Document(s ) Protein 8.3 g/dL [place] [Mass/volume Hospital ] in Serum or Plasma ID Date Data Source [id number] 05/04/2019 01:20:00 PM EDT [facility] Name Value Range Interpretation Description Data Sup porting Code Source(s) Document(s ) Calcium 8.8 mg/dL [place] [Mass/volume Hospital ] in Serum or Plasma ID Date Data Source [id number] 05/04/2019 01:20:00 PM EDT [facility] Name Value Range Interpretation Code Description Data Isabel rce(s) Supporting Document(s ) Urea 20.0 [place] nitrogen/Cre [facility] atinine [Mass Ratio] in Serum or Plasma ID Date Data Source [id number] 05/04/2019 01:20:00 PM EDT [facility] Name Value Range Interpretation Description Data Sup porting Code Source(s) Document(s ) Creatinine 0.5 mg/dL [place] [facility] [Mass/volume] Hospital in Serum or Plasma ID Date Data Source [id number] 05/04/2019 01:20:00 PM EDT [facility] Name Value Range Interpretation Description Data Sup porting Code Source(s) Document(s ) Urea 10 mg/dL [place] nitrogen Hospital [Mass/volume ] in Serum or Plasma ID Date Data Source [id number] 05/04/2019 01:20:00 PM EDT [facility] Name Value Range Interpretation Code Description Data Isabel rce(s) Supporting Document(s ) Anion gap in 9 [place] Serum or [facility] Plasma ID Date Data Source [id number] 05/04/2019 01:20:00 PM EDT [facility] Name Value Range Interpretation Description Data Sup porting Code Source(s) Document(s ) Carbon 29 mmol/L [place] dioxide, Hospital total [Moles/volu me] in Serum or Plasma ID Date Data Source [id number] 05/04/2019 01:20:00 PM EDT [facility] Name Value Range Interpretation Description Data Sup porting Code Source(s) Document(s ) Chloride 103 [place] [Moles/volum mmol/L Hospital e] in Serum or Plasma ID Date Data Source [id number] 05/04/2019 01:20:00 PM EDT [facility] Name Value Range Interpretation Description Data Sup porting Code Source(s) Document(s ) Potassium 4.2 [place] [Moles/volume mmol/L Hospital ] in Serum or Plasma ID Date Data Source [id number] 05/04/2019 01:20:00 PM EDT [facility] Name Value Range Interpretation Description Data Sup porting Code Source(s) Document(s ) Sodium 137 mmol/L [place] [Moles/volu Hospital me] in Serum or Plasma ID Date Data Source [id number] 05/04/2019 01:20:00 PM EDT [facility] Name Value Range Interpretation Description Data Sup porting Code Source(s) Document(s ) Glucose 103 mg/dL [place] [Mass/volume Hospital ] in Serum or Plasma ID Date Data Source [id number] 05/04/2019 01:20:00 PM EDT [facility] Value Range Interpretation Code Description Data Supporting Source(s) Document(s ) NUCLEATED RBCS 1.3 % [place] (AUTO Hospital DIFF%)DIS ID Date Data Source [id number] 05/04/2019 01:20:00 PM EDT [facility] Value Range Interpretation Description Data Sup porting Code Source(s) Document(s ) Differential AUTOMATED [place] cell count Hospital method - Blood ID Date Data Source [id number] 05/04/2019 01:20:00 PM EDT [facility] Value Range Interpretation Description Data Sup porting Code Source(s) Document(s ) Immature 0.03 [place] granulocytes 10*3/uL Hospital [#/volume] in Blood by Automated count ID Date Data Source [id number] 05/04/2019 01:20:00 PM EDT [facility] Value Range Interpretation Description Data Sup porting Code Source(s) Document(s ) Basophils 0.04 [place] [#/volume] in 10*3/uL Hospital Blood by Automated count ID Date Data Source [id number] 05/04/2019 01:20:00 PM EDT [facility] Name Value Range Interpretation Description Data Sup porting Code Source(s) Document(s ) Eosinophils 0.03 [place] [#/volume] in 10*3/uL Hospital Blood by Automated count ID Date Data Source [id number] 05/04/2019 01:20:00 PM EDT [facility] Name Value Range Interpretation Description Data Sup porting Code Source(s) Document(s ) Monocytes 1.05 [place] [#/volume] in 10*3/uL Hospital Blood by Automated count ID Date Data Source [id number] 05/04/2019 01:20:00 PM EDT [facility] Name Value Range Interpretation Description Data Sup porting Code Source(s) Document(s ) Lymphocytes 1.71 [place] [#/volume] in 10*3/uL Hospital Blood by Automated count ID Date Data Source [id number] 05/04/2019 01:20:00 PM EDT [facility] Value Range Interpretation Description Data Sup porting Code Source(s) Document(s ) Neutrophils 3.37 [place] [#/volume] in 10*3/uL Hospital Blood by Automated count ID Date Data Source [id number] 05/04/2019 01:20:00 PM EDT [facility] Value Range Interpretation Description Data Sup porting Code Source(s) Document(s ) Nucleated 1.3 % [place] erythrocytes/10 Hospital 0 leukocytes [Ratio] in Blood by Automated count ID Date Data Source [id number] 05/04/2019 01:20:00 PM EDT [facility] Value Range Interpretation Description Data Sup porting Code Source(s) Document(s ) Immature 0.5 % [place] granulocytes/10 Hospital 0 leukocytes in Blood by Automated count ID Date Data Source [id number] 05/04/2019 01:20:00 PM EDT [facility] Value Range Interpretation Description Data Sup porting Code Source(s) Document(s ) Basophils/100 0.6 % [place] [facility] leukocytes in Hospital Blood by Automated count ID Date Data Source [id number] 05/04/2019 01:20:00 PM EDT [facility] Value Range Interpretation Description Data Sup porting Code Source(s) Document(s ) Eosinophils/100 0.5 % [place] [facility] leukocytes in Hospital Blood by Automated count ID Date Data Source [id number] 05/04/2019 01:20:00 PM EDT [facility] Name Value Range Interpretation Description Data Sup porting Code Source(s) Document(s ) Monocytes/100 16.9 % [place] [facility] leukocytes in Hospital Blood by Automated count ID Date Data Source [id number] 05/04/2019 01:20:00 PM EDT [facility] Name Value Range Interpretation Description Data Sup porting Code Source(s) Document(s ) Lymphocytes/10 27.4 % [place] [facility] 0 leukocytes Hospital in Blood by Automated count ID Date Data Source [id number] 05/04/2019 01:20:00 PM EDT [facility] Name Value Range Interpretation Description Data Sup porting Code Source(s) Document(s ) Neutrophils/10 54.1 % [place] [facility] 0 leukocytes Hospital in Blood by Automated count ID Date Data Source [id number] 05/04/2019 01:20:00 PM EDT [facility] Name Value Range Interpretation Description Data Sup porting Code Source(s) Document(s ) Platelet mean 9.8 fL [place] [facility] volume Hospital [Entitic volume] in Blood by Automated count ID Date Data Source [id number] 05/04/2019 01:20:00 PM EDT [facility] Name Value Range Interpretation Description Data Sup porting Code Source(s) Document(s ) Platelets 203 [place] [#/volume] in 10*3/uL Hospital Blood by Automated count ID Date Data Source [id number] 05/04/2019 01:20:00 PM EDT [facility] Name Value Range Interpretation Description Data Sup porting Code Source(s) Document(s ) Erythrocyte 19.7 % [place] [facility] distribution Hospital width [Ratio] by Automated count ID Date Data Source [id number] 05/04/2019 01:20:00 PM EDT [facility] Value Range Interpretation Description Data Sup porting Code Source(s) Document(s ) Erythrocyte mean 34.6 [place] corpuscular g/dL Hospital hemoglobin concentration [Mass/volume] by Automated count ID Date Data Source [id number] 05/04/2019 01:20:00 PM EDT [facility] Value Range Interpretation Description Data Sup porting Code Source(s) Document(s ) Erythrocyte 29.2 pg [facility] corpuscular hemoglobin [Entitic mass] by Automated count ID Date Data Source [id number] 05/04/2019 01:20:00 PM EDT [facility] Value Range Interpretation Description Data Sup porting Code Source(s) Document(s ) Erythrocyte 84.3 fL [facility] corpuscular volume [Entitic volume] by Automated count ID Date Data Source [id number] 05/04/2019 01:20:00 PM EDT [facility] Value Range Interpretation Description Data Sup porting Code Source(s) Document(s ) Hematocrit 26.3 % [place] [Volume Hospital Fraction] of Blood by Automated count ID Date Data Source [id number] 05/04/2019 01:20:00 PM EDT [facility] Value Range Interpretation Description Data Sup porting Code Source(s) Document(s ) Hemoglobin 9.1 g/dL [place] [Mass/volume] Hospital in Blood ID Date Data Source [id number] 05/04/2019 01:20:00 PM EDT [facility] Value Range Interpretation Description Data Sup porting Code Source(s) Document(s ) Erythrocytes 3.12 [place] [#/volume] in 10*6/uL Hospital Blood by Automated count ID Date Data Source [id number] 05/04/2019 01:20:00 PM EDT [facility] Name Value Range Interpretation Description Data Sup porting Code Source(s) Document(s ) Leukocytes 6.2 [place] [#/volume] in 10*3/uL Hospital Blood by Automated count ID Date Data Source [id number] 04/26/2019 03:51:00 PM EDT [facility] Name Value Range Interpretation Description Data Sup porting Code Source(s) Document(s ) Leukocyte NEGATIVE [facility] [facility] esterase Hospital [Presence] in Urine by Test strip ID Date Data Source [id number] 04/26/2019 03:51:00 PM EDT [facility] Value Range Interpretation Description Data Sup porting Code Source(s) Document(s ) URINE NEGATIVE [facility] [facility] NITRITES Hospital ID Date Data Source [id number] 04/26/2019 03:51:00 PM EDT [facility] Name Value Range Interpretation Description Data Sup porting Code Source(s) Document(s ) Erythrocytes NEGATIVE [place] [facility] [#/volume] in Hospital Urine by Test strip ID Date Data Source [id number] 04/26/2019 03:51:00 PM EDT [facility] Name Value Range Interpretation Code Description Data Isabel rce(s) Supporting Document(s ) Bilirubin. NEGATIVE [facility] [facility] total Hospital [Presence] in Urine by Test strip ID Date Data Source [id number] 04/26/2019 03:51:00 PM EDT [facility] Name Value Range Interpretation Description Data Sup porting Code Source(s) Document(s ) Urobilinogen 2.0 [place] [Units/volume] mg/dL Hospital in Urine by Test strip ID Date Data Source [id number] 04/26/2019 03:51:00 PM EDT [facility] Name Value Range Interpretation Description Data Sup porting Code Source(s) Document(s ) Ketones NEGATIVE [place] [facility] [Mass/volume Hospital ] in Urine by Test strip ID Date Data Source [id number] 04/26/2019 03:51:00 PM EDT [facility] Name Value Range Interpretation Description Data Sup porting Code Source(s) Document(s ) Glucose NEGATIVE [place] [Mass/volume Hospital ] in Urine by Test strip ID Date Data Source [id number] 04/26/2019 03:51:00 PM EDT [facility] Name Value Range Interpretation Description Data Sup porting Code Source(s) Document(s ) Protein NEGATIVE [place] [facility] [Presence] Hospital in Urine by Test strip ID Date Data Source [id number] 04/26/2019 03:51:00 PM EDT [facility] Value Range Interpretation Code Description Data Isabel rce(s) Supporting Document(s ) pH of Urine 8.5 [place] by Test Hospital strip ID Date Data Source [id number] 04/26/2019 03:51:00 PM EDT [facility] Value Range Interpretation Code Description Data Supporting Source(s) Document(s ) Specific 1.009 [place] gravity of Hospital Urine by Test strip ID Date Data Source [id number] 04/26/2019 03:51:00 PM EDT [facility] Value Range Interpretation Description Data Sup porting Code Source(s) Document(s ) Clarity in Urine CLEAR [place] by [facility] automated ID Date Data Source [id number] 04/26/2019 03:51:00 PM EDT [facility] Value Range Interpretation Code Description Data Isabel rce(s) Supporting Document(s ) Color of YELLOW [facility] [facility] Urine Hospital ID Date Data Source [id number] 04/26/2019 03:51:00 PM EDT [facility] Name Value Range Interpretation Description Data Sup porting Code Source(s) Document(s ) Leukocyte NEGATIVE [facility] [facility] esterase Hospital [Presence] in Urine by Test strip ID Date Data Source [id number] 04/26/2019 03:51:00 PM EDT [facility] Name Value Range Interpretation Description Data Sup porting Code Source(s) Document(s ) URINE NEGATIVE [facility] [facility] NITRITES Hospital ID Date Data Source [id number] 04/26/2019 03:51:00 PM EDT [facility] Name Value Range Interpretation Description Data Sup porting Code Source(s) Document(s ) Erythrocytes NEGATIVE [place] [facility] [#/volume] in Hospital Urine by Test strip ID Date Data Source [id number] 04/26/2019 03:51:00 PM EDT [facility] Name Value Range Interpretation Code Description Data Isabel rce(s) Supporting Document(s ) Bilirubin. NEGATIVE [facility] [facility] total Hospital [Presence] in Urine by Test strip ID Date Data Source [id number] 04/26/2019 03:51:00 PM EDT [facility] Name Value Range Interpretation Description Data Sup porting Code Source(s) Document(s ) Urobilinogen 2.0 [place] [facility] [Units/volume] mg/dL Hospital in Urine by Test strip ID Date Data Source [id number] 04/26/2019 03:51:00 PM EDT [facility] Name Value Range Interpretation Description Data Sup porting Code Source(s) Document(s ) Ketones NEGATIVE [place] [Mass/volume Hospital ] in Urine by Test strip ID Date Data Source [id number] 04/26/2019 03:51:00 PM EDT [facility] Name Value Range Interpretation Description Data Sup porting Code Source(s) Document(s ) Glucose NEGATIVE [place] [Mass/volume Hospital ] in Urine by Test strip ID Date Data Source [id number] 04/26/2019 03:51:00 PM EDT [facility] Name Value Range Interpretation Description Data Sup porting Code Source(s) Document(s ) Protein NEGATIVE [place] [facility] [Presence] Hospital in Urine by Test strip ID Date Data Source [id number] 04/26/2019 03:51:00 PM EDT [facility] Name Value Range Interpretation Code Description Data Isabel rce(s) Supporting Document(s ) pH of Urine 8.5 [place] by Test Hospital strip ID Date Data Source [id number] 04/26/2019 03:51:00 PM EDT [facility] Name Value Range Interpretation Code Description Data Supporting Source(s) Document(s ) Specific 1.009 [place] gravity of Hospital Urine by Test strip ID Date Data Source [id number] 04/26/2019 03:51:00 PM EDT [facility] Name Value Range Interpretation Description Data Sup porting Code Source(s) Document(s ) Clarity in Urine CLEAR [place] by [facility] automated ID Date Data Source [id number] 04/26/2019 03:51:00 PM EDT [facility] Value Range Interpretation Code Description Data Isabel rce(s) Supporting Document(s ) Color of YELLOW [facility] [facility] Urine Hospital ID Date Data Source [id number] 04/26/2019 03:51:00 PM EDT [facility] Name Value Range Interpretation Description Data Sup porting Code Source(s) Document(s ) Leukocyte NEGATIVE [facility] [facility] esterase Hospital [Presence] in Urine by Test strip ID Date Data Source [id number] 04/26/2019 03:51:00 PM EDT [facility] Name Value Range Interpretation Description Data Sup porting Code Source(s) Document(s ) URINE NEGATIVE [facility] [facility] NITRITES Hospital ID Date Data Source [id number] 04/26/2019 03:51:00 PM EDT [facility] Name Value Range Interpretation Description Data Sup porting Code Source(s) Document(s ) Erythrocytes NEGATIVE [place] [facility] [#/volume] in Hospital Urine by Test strip ID Date Data Source [id number] 04/26/2019 03:51:00 PM EDT [facility] Name Value Range Interpretation Code Description Data Isabel rce(s) Supporting Document(s ) Bilirubin. NEGATIVE [facility] [facility] total Hospital [Presence] in Urine by Test strip ID Date Data Source [id number] 04/26/2019 03:51:00 PM EDT [facility] Value Range Interpretation Description Data Sup porting Code Source(s) Document(s ) Urobilinogen 2.0 [place] [facility] [Units/volume] mg/dL Hospital in Urine by Test strip ID Date Data Source [id number] 04/26/2019 03:51:00 PM EDT [facility] Name Value Range Interpretation Description Data Sup porting Code Source(s) Document(s ) Ketones NEGATIVE [place] [facility] [Mass/volume Hospital ] in Urine by Test strip ID Date Data Source [id number] 04/26/2019 03:51:00 PM EDT [facility] Name Value Range Interpretation Description Data Sup porting Code Source(s) Document(s ) Glucose NEGATIVE [facility] [facility] [Mass/volume Hospital ] in Urine by Test strip ID Date Data Source [id number] 04/26/2019 03:51:00 PM EDT [facility] Name Value Range Interpretation Description Data Sup porting Code Source(s) Document(s ) Protein NEGATIVE [facility] [facility] [Presence] Hospital in Urine by Test strip ID Date Data Source [id number] 04/26/2019 03:51:00 PM EDT [facility] Name Value Range Interpretation Code Description Data Isabel rce(s) Supporting Document(s ) pH of Urine 8.5 [place] by Test Hospital strip ID Date Data Source [id number] 04/26/2019 03:51:00 PM EDT [facility] Name Value Range Interpretation Code Description Data Supporting Source(s) Document(s ) Specific 1.009 [place] [facility] gravity of Hospital Urine by Test strip ID Date Data Source [id number] 04/26/2019 03:51:00 PM EDT [facility] Name Value Range Interpretation Description Data Sup porting Code Source(s) Document(s ) Clarity in Urine CLEAR [facility] [facility] by [facility] automated ID Date Data Source [id number] 04/26/2019 03:51:00 PM EDT [facility] Name Value Range Interpretation Code Description Data Isabel rce(s) Supporting Document(s ) Color of YELLOW [facility] Urine Hospital ID Date Data Source [id number] 04/26/2019 02:41:00 PM EDT [facility] Name Value Range Interpretation Code Description Data Supporting Source(s) Document(s ) Immature 31.9 % [facility] [facility] reticulocytes Hospital /Reticulocyte s.total in Blood ID Date Data Source [id number] 04/26/2019 02:41:00 PM EDT [facility] Name Value Range Interpretation Description Data Sup porting Code Source(s) Document(s ) Reticulocytes 0.31 [place] [#/volume] in 10*6/uL Hospital Blood by Automated count ID Date Data Source [id number] 04/26/2019 02:41:00 PM EDT [facility] Name Value Range Interpretation Description Data Sup porting Code Source(s) Document(s ) Reticulocytes/10 9.63 % [place] 0 erythrocytes Hospital in Blood by Automated count ID Date Data Source [id number] 04/26/2019 02:41:00 PM EDT [facility] Name Value Range Interpretation Description Data Sup porting Code Source(s) Document(s ) Aspartate 55 U/L [place] aminotransferase [place] [Enzymatic Hospital activity/volume] in Serum or Plasma ID Date Data Source [id number] 04/26/2019 02:41:00 PM EDT [facility] Name Value Range Interpretation Description Data Sup porting Code Source(s) Document(s ) Alanine 23 U/L [place] aminotransferase [place] [Enzymatic Hospital activity/volume] in Serum or Plasma ID Date Data Source [id number] 04/26/2019 02:41:00 PM EDT [facility] Value Range Interpretation Description Data Sup porting Code Source(s) Document(s ) Alkaline 194 U/L [place] phosphatase Hospital [Enzymatic activity/volume ] in Serum or Plasma ID Date Data Source [id number] 04/26/2019 02:41:00 PM EDT [facility] Name Value Range Interpretation Description Data Sup porting Code Source(s) Document(s ) Bilirubin.t 2.1 mg/dL [facility] Hospital [Mass/volum e] in Serum or Plasma ID Date Data Source [id number] 04/26/2019 02:41:00 PM EDT [facility] Name Value Range Interpretation Code Description Data Isabel rce(s) Supporting Document(s ) Albumin/Glob 1.0 [place] ulin [Mass Hospital Ratio] in Serum or Plasma ID Date Data Source [id number] 04/26/2019 02:41:00 PM EDT [facility] Value Range Interpretation Description Data Sup porting Code Source(s) Document(s ) Albumin 4.0 g/dL [place] [Mass/volume Hospital ] in Serum or Plasma ID Date Data Source [id number] 04/26/2019 02:41:00 PM EDT [facility] Name Value Range Interpretation Description Data Sup porting Code Source(s) Document(s ) Protein 8.2 g/dL [place] [Mass/volume Hospital ] in Serum or Plasma ID Date Data Source [id number] 04/26/2019 02:41:00 PM EDT [facility] Name Value Range Interpretation Description Data Sup porting Code Source(s) Document(s ) Calcium 9.2 mg/dL [place] [Mass/volume Hospital ] in Serum or Plasma ID Date Data Source [id number] 04/26/2019 02:41:00 PM EDT [facility] Name Value Range Interpretation Code Description Data Isabel rce(s) Supporting Document(s ) Urea 15.0 [place] nitrogen/Cre Hospital atinine [Mass Ratio] in Serum or Plasma ID Date Data Source [id number] 04/26/2019 02:41:00 PM EDT [facility] Name Value Range Interpretation Description Data Sup porting Code Source(s) Document(s ) Creatinine 0.6 mg/dL [place] [Mass/volume] Hospital in Serum or Plasma ID Date Data Source [id number] 04/26/2019 02:41:00 PM EDT [facility] Name Value Range Interpretation Description Data Sup porting Code Source(s) Document(s ) Urea nitrogen 9 mg/dL [place] [Mass/volume] Hospital in Serum or Plasma ID Date Data Source [id number] 04/26/2019 02:41:00 PM EDT [facility] Name Value Range Interpretation Code Description Data Isabel rce(s) Supporting Document(s ) Anion gap in 11 [place] Serum or Hospital Plasma ID Date Data Source [id number] 04/26/2019 02:41:00 PM EDT [facility] Name Value Range Interpretation Description Data Sup porting Code Source(s) Document(s ) Carbon 31 mmol/L [place] dioxide, Hospital total [Moles/volu me] in Serum or Plasma ID Date Data Source [id number] 04/26/2019 02:41:00 PM EDT [facility] Name Value Range Interpretation Description Data Sup porting Code Source(s) Document(s ) Chloride 102 [place] [Moles/volum mmol/L Hospital e] in Serum or Plasma ID Date Data Source [id number] 04/26/2019 02:41:00 PM EDT [facility] Name Value Range Interpretation Description Data Sup porting Code Source(s) Document(s ) Potassium 4.3 [place] [Moles/volume mmol/L Hospital ] in Serum or Plasma ID Date Data Source [id number] 04/26/2019 02:41:00 PM EDT [facility] Name Value Range Interpretation Description Data Sup porting Code Source(s) Document(s ) Sodium 140 mmol/L [place] [Moles/volu Hospital me] in Serum or Plasma ID Date Data Source [id number] 04/26/2019 02:41:00 PM EDT [facility] Name Value Range Interpretation Description Data Sup porting Code Source(s) Document(s ) Glucose 110 mg/dL [place] [Mass/volume Hospital ] in Serum or Plasma ID Date Data Source [id number] 04/26/2019 02:41:00 PM EDT [facility] Name Value Range Interpretation Code Description Data Supporting Source(s) Document(s ) Immature 31.9 % [place] reticulocytes Hospital /Reticulocyte s.total in Blood ID Date Data Source [id number] 04/26/2019 02:41:00 PM EDT [facility] Name Value Range Interpretation Description Data Sup porting Code Source(s) Document(s ) Reticulocytes 0.31 [place] [#/volume] in 10*6/uL Hospital Blood by Automated count ID Date Data Source [id number] 04/26/2019 02:41:00 PM EDT [facility] Name Value Range Interpretation Description Data Sup porting Code Source(s) Document(s ) Reticulocytes/10 9.63 % [place] 0 erythrocytes Hospital in Blood by Automated count ID Date Data Source [id number] 04/26/2019 02:41:00 PM EDT [facility] Value Range Interpretation Code Description Data Supporting Source(s) Document(s ) NUCLEATED RBCS 0.8 % [place] (AUTO Hospital DIFF%)DIS ID Date Data Source [id number] 04/26/2019 02:41:00 PM EDT [facility] Value Range Interpretation Description Data Sup porting Code Source(s) Document(s ) Differential AUTOMATED [place] cell count [facility] method - Blood ID Date Data Source [id number] [facility] Interpretation Description Data Sup porting Code Source(s) Document(s ) Immature 0.04 [place] granulocytes 10*3/uL Hospital [#/volume] in Blood by Automated count ID Date Data Source [id number] 04/26/2019 02:41:00 PM EDT [facility] Name Value Range Interpretation Description Data Sup porting Code Source(s) Document(s ) Basophils 0.05 [place] [#/volume] in 10*3/uL Hospital Blood by Automated count ID Date Data Source [id number] 04/26/2019 02:41:00 PM EDT [facility] Name Value Range Interpretation Description Data Sup porting Code Source(s) Document(s ) Eosinophils 0.08 [place] [#/volume] in 10*3/uL Hospital Blood by Automated count ID Date Data Source [id number] 04/26/2019 02:41:00 PM EDT [facility] Value Range Interpretation Description Data Sup porting Code Source(s) Document(s ) Monocytes 1.24 [place] [#/volume] in 10*3/uL Hospital Blood by Automated count ID Date Data Source [id number] 04/26/2019 02:41:00 PM EDT [facility] Value Range Interpretation Description Data Sup porting Code Source(s) Document(s ) Lymphocytes 1.59 [place] [#/volume] in 10*3/uL Hospital Blood by Automated count ID Date Data Source [id number] 04/26/2019 02:41:00 PM EDT [facility] Value Range Interpretation Description Data Sup porting Code Source(s) Document(s ) Neutrophils 4.25 [place] [#/volume] in 10*3/uL Hospital Blood by Automated count ID Date Data Source [id number] 04/26/2019 02:41:00 PM EDT [facility] Value Range Interpretation Description Data Sup porting Code Source(s) Document(s ) Nucleated 0.8 % [place] erythrocytes/10 Hospital 0 leukocytes [Ratio] in Blood by Automated count ID Date Data Source [id number] 04/26/2019 02:41:00 PM EDT [facility] Value Range Interpretation Description Data Sup porting Code Source(s) Document(s ) Immature 0.6 % [place] granulocytes/10 Hospital 0 leukocytes in Blood by Automated count ID Date Data Source [id number] 04/26/2019 02:41:00 PM EDT [facility] Value Range Interpretation Description Data Sup porting Code Source(s) Document(s ) Basophils/100 0.7 % [place] leukocytes in Hospital Blood by Automated count ID Date Data Source [id number] 04/26/2019 02:41:00 PM EDT [facility] Name Value Range Interpretation Description Data Sup porting Code Source(s) Document(s ) Eosinophils/100 1.1 % [place] leukocytes in Hospital Blood by Automated count ID Date Data Source [id number] 04/26/2019 02:41:00 PM EDT [facility] Name Value Range Interpretation Description Data Sup porting Code Source(s) Document(s ) Monocytes/100 17.1 % [place] leukocytes in Hospital Blood by Automated count ID Date Data Source [id number] 04/26/2019 02:41:00 PM EDT [facility] Value Range Interpretation Description Data Sup porting Code Source(s) Document(s ) Lymphocytes/10 21.9 % [place] 0 leukocytes Hospital in Blood by Automated count ID Date Data Source [id number] 04/26/2019 02:41:00 PM EDT [facility] Value Range Interpretation Description Data Sup porting Code Source(s) Document(s ) Neutrophils/10 58.6 % [place] 0 leukocytes Hospital in Blood by Automated count ID Date Data Source [id number] 04/26/2019 02:41:00 PM EDT [facility] Value Range Interpretation Description Data Sup porting Code Source(s) Document(s ) Platelet mean 9.7 fL [place] volume Hospital [Entitic volume] in Blood by Automated count ID Date Data Source [id number] 04/26/2019 02:41:00 PM EDT [facility] Name Value Range Interpretation Description Data Sup porting Code Source(s) Document(s ) Platelets 279 [place] [#/volume] in 10*3/uL Hospital Blood by Automated count ID Date Data Source [id number] 04/26/2019 02:41:00 PM [facility] Value Range Interpretation Description Data Sup porting Code Source(s) Document(s ) Erythrocyte 19.4 % [facility] Hospital width [Ratio] by Automated count ID Date Data Source [id number] 04/26/2019 02:41:00 PM EDT [facility] Value Range Interpretation Description Data Sup porting Code Source(s) Document(s ) Erythrocyte mean 33.6 [place] corpuscular g/dL [facility] hemoglobin concentration [Mass/volume] by Automated count ID Date Data Source [id number] [facility]ation Description Data Sup porting Code Source(s) Document(s ) Erythrocyte 28.8 pg [facility] corpuscular hemoglobin [Entitic mass] by Automated count ID Date Data Source [id number] 04/26/2019 02:41:00 PM [facility] Value Range Interpretation Description Data Sup porting Code Source(s) Document(s ) Erythrocyte 85.9 fL [facility] corpuscular volume [Entitic volume] by Automated count ID Date Data Source [id number] 04/26/2019 02:41:00 PM [facility] Value Range Interpretation Description Data Sup porting Code Source(s) Document(s ) Hematocrit 27.4 % [place] [Volume Hospital Fraction] of Blood by Automated count ID Date Data Source [id number] 04/26/2019 [facility] Interpretation Description Data Sup porting Code Source(s) Document(s ) Hemoglobin 9.2 g/dL [place] [Mass/volume] Hospital in Blood ID Date Data Source [id number] 04/26/2019 02:41:00 PM EDT [facility] Name Value Range Interpretation Description Data Sup porting Code Source(s) Document(s ) Erythrocytes 3.19 [place] [#/volume] in 10*6/uL Hospital Blood by Automated count ID Date Data Source [id number] 04/26/2019 02:41:00 PM EDT [facility] Name Value Range Interpretation Description Data Sup porting Code Source(s) Document(s ) Leukocytes 7.3 [place] [#/volume] in 10*3/uL Hospital Blood by Automated count ID Date Data Source [id number] 04/17/2019 01:58:00 PM [facility] Name Value Range Interpretation Description Data Sup porting Code Source(s) Document(s ) HCG QUALITATIVE NEGATIVE [facility] ID Date Data Source [id number] 04/17/2019 01:58:00 PM [facility] REFERENCE RANGES: NONE DETECTED <20 MG/DL NONE TO MILD EUPHORIA 20-49 MG/DL MILD EUPHORIA 50-99 MG/DL MODERATE EUPHORIA 100-149 MG/DL INTOXICATION 150-300 MG/DL Name Value Range Interpretation Description Data Sup porting Code Source(s) Document(s ) Ethanol < 20 [place] [Mass/volume mg/dL Hospital ] in Serum or Plasma ID Date Data Source [id number] 04/17/2019 01:58:00 PM [facility] TEST RESULT IS A TOTAL TRICYCLIC VALUE.T RICYCLIC ANTIDEPRESSANT REFERENCE RANGE: AMITRIPTYLINE AND METABOLITE (NORTRIPTYL INE) TOTAL THERAPEUTIC: 75 - 225 NG/ML. TOTAL TOXIC: > 400 NG/ML. NORTRIPTYLINE ONLY TOTAL THERAPEUTIC: 50 - 150 NG/ML. TOTAL TOXIC: > 400 NG/ML. IMIPRAMINE AND METABOLITE (DESIPRAMINE) TOTAL THERAPEUTIC: 125 - 175 NG/ML. TOTAL TOXIC: > 400 NG/ML. Name Value Range Interpretation Description Data Sup porting Code Source(s) Document(s ) TRICYCLIC < 80 [place] ANTIDEPRESSANT ng/mL Hospital ID Date Data Source [id number] 04/17/2019 01:58:00 PM [facility] REFERENCE RANGES: ANALGESIC: 0.0 - 10.0 MG/DL. ARTHRITIC THERAPY: 15.0 - 30.0 MG/DL. Name Value Range Interpretation Description Data Sup porting Code Source(s) Document(s ) Salicylates < 3.0 [place] [Mass/volume] mg/dL Hospital in Serum or Plasma ID Date Data Source [id number] 04/17/2019 01:58:00 PM [facility] THERAPEUTIC RANGE: 10.0-30.0 UG/MLTOXIC RANGE: 4 HRS AFTER INGESTION >150 UG/ML 12 HRS AFTER INGESTION >35 UG/ML Name Value Range Interpretation Description Data Sup porting Code Source(s) Document(s ) ACETAMINOPHEN < 10.0 [place] ug/mL Hospital ID Date Data Source [id number] 04/17/2019 01:58:00 PM [facility] TEST PERFORMED BY [facility] [email or web address] [facility] CHEMILUMINESCENCE METHOD. Name Value Range Interpretation Description Data Sup porting Code Source(s) Document(s ) Troponin < 0.01 [place] I.cardiac ng/mL Hospital [Mass/volume ] in Serum or Plasma ID Date Data Source [id number] 04/17/2019 01:58:00 PM [facility] Name Value Range Interpretation Description Data Sup porting Code Source(s) Document(s ) Creatine 289 U/L [place] kinase Hospital [Enzymatic activity/volu me] in Serum or Plasma ID Date Data Source [id number] 04/17/2019 01:58:00 PM [facility] THERAPEUTIC RANGES:UNFRACTIONATED HEPARI N THERAPY: 60-90 SECONDSARGATROBAN THERAPY: 49-99 SECONDS Name Value Range Interpretation Description Data Sup porting Code Source(s) Document(s ) aPTT in 53.7 s [place] Platelet poor Hospital plasma by Coagulation assay ID Date Data Source [id number] 04/17/2019 01:58:00 PM [facility] THERAPEUTIC RANGE FOR STANDARD ORALANTIC OAGULANT THERAPY: 2.0-3.0THERAPEUTIC RANGE FOR HIGH DOSE ORALANTICOAGULANT THERAPY (MECHANICAL HEARTVALVE REPLACEMENT): 2.5-3.5 Name Value Range Interpretation Description Data Sup porting Code Source(s) Document(s ) INR in Platelet 1.3 [place] poor plasma by Hospital Coagulation assay ID Date Data Source [id number] 04/17/2019 01:58:00 PM [facility] Name Value Range Interpretation Description Data Sup porting Code Source(s) Document(s ) PT panel - 14.1 s [place] Platelet poor [facility] plasma by Coagulation assay ID Date Data Source [id number] 04/17/2019 01:58:00 PM [facility] Name Value Range Interpretation Description Data Sup porting Code Source(s) Document(s ) HCG QUALITATIVE NEGATIVE [facility] ID Date Data Source [id number] 04/17/2019 01:58:00 PM [facility] REFERENCE RANGES: NONE DETECTED <20 MG/DL NONE TO MILD EUPHORIA 20-49 MG/DL MILD EUPHORIA 50-99 MG/DL MODERATE EUPHORIA 100-149 MG/DL INTOXICATION 150-300 MG/DL Name Value Range Interpretation Description Data Sup porting Code Source(s) Document(s ) Ethanol < 20 [place] [Mass/volume mg/dL Hospital ] in Serum or Plasma ID Date Data Source [id number] 04/17/2019 01:58:00 PM [facility] TEST RESULT IS A TOTAL TRICYCLIC VALUE.T RICYCLIC ANTIDEPRESSANT REFERENCE RANGE: AMITRIPTYLINE AND METABOLITE (NORTRIPTYL INE) TOTAL THERAPEUTIC: 75 - 225 NG/ML. TOTAL TOXIC: > 400 NG/ML. NORTRIPTYLINE ONLY TOTAL THERAPEUTIC: 50 - 150 NG/ML. TOTAL TOXIC: > 400 NG/ML. IMIPRAMINE AND METABOLITE (DESIPRAMINE) TOTAL THERAPEUTIC: 125 - 175 NG/ML. TOTAL TOXIC: > 400 NG/ML. Name Value Range Interpretation Description Data Sup porting Code Source(s) Document(s ) TRICYCLIC < 80 [place] ANTIDEPRESSANT ng/mL Hospital ID Date Data Source [id number] 04/17/2019 01:58:00 PM [facility] REFERENCE RANGES: ANALGESIC: 0.0 - 10.0 MG/DL. ARTHRITIC THERAPY: 15.0 - 30.0 MG/DL. Name Value Range Interpretation Description Data Sup porting Code Source(s) Document(s ) Salicylates < 3.0 [place] [Mass/volume] mg/dL Hospital in Serum or Plasma ID Date Data Source [id number] 04/17/2019 01:58:00 PM [facility] THERAPEUTIC RANGE: 10.0-30.0 UG/MLTOXIC RANGE: 4 HRS AFTER INGESTION >150 UG/ML 12 HRS AFTER INGESTION >35 UG/ML Name Value Range Interpretation Description Data Sup porting Code Source(s) Document(s ) ACETAMINOPHEN < 10.0 [place] ug/mL Hospital ID Date Data Source [id number] 04/17/2019 01:58:00 PM [facility] TEST PERFORMED BY [facility] [facility] [email or web address] [facility] CHEMILUMINESCENCE METHOD. Name Value Range Interpretation Description Data Sup porting Code Source(s) Document(s ) Troponin < 0.01 [place] I.cardiac ng/mL Hospital [Mass/volume ] in Serum or Plasma ID Date Data Source [id number] 04/17/2019 01:58:00 PM [facility] Name Value Range Interpretation Description Data Sup porting Code Source(s) Document(s ) Creatine 289 U/L [place] kinase [facility] [Enzymatic activity/volu me] in Serum or Plasma ID Date Data Source [id number] 04/17/2019 01:58:00 PM [facility] THERAPEUTIC RANGES:UNFRACTIONATED HEPARI N THERAPY: 60-90 SECONDSARGATROBAN THERAPY: 49-99 SECONDS Name Value Range Interpretation Description Data Sup porting Code Source(s) Document(s ) aPTT in 53.7 s [place] Platelet poor [facility] plasma by Coagulation assay ID Date Data Source [id number] 04/17/2019 01:58:00 PM [facility] THERAPEUTIC RANGE FOR STANDARD ORALANTIC OAGULANT THERAPY: 2.0-3.0THERAPEUTIC RANGE FOR HIGH DOSE ORALANTICOAGULANT THERAPY (MECHANICAL HEARTVALVE REPLACEMENT): 2.5-3.5 Name Value Range Interpretation Description Data Sup porting Code Source(s) Document(s ) INR in Platelet 1.3 [place] poor plasma by Hospital Coagulation assay ID Date Data Source [id number] 04/17/2019 01:58:00 PM [facility] Name Value Range Interpretation Description Data Sup porting Code Source(s) Document(s ) PT panel - 14.1 s [place] Platelet poor [facility] plasma by Coagulation assay ID Date Data Source [id number] 04/17/2019 01:58:00 PM [facility] Name Value Range Interpretation Description Data Sup porting Code Source(s) Document(s ) HCG QUALITATIVE NEGATIVE [facility] ID Date Data Source [id number] 04/17/2019 01:58:00 PM [facility] REFERENCE RANGES: NONE DETECTED <20 MG/DL NONE TO MILD EUPHORIA 20-49 MG/DL MILD EUPHORIA 50-99 MG/DL MODERATE EUPHORIA 100-149 MG/DL INTOXICATION 150-300 MG/DL Name Value Range Interpretation Description Data Sup porting Code Source(s) Document(s ) Ethanol < 20 [place] [Mass/volume mg/dL Hospital ] in Serum or Plasma ID Date Data Source [id number] 04/17/2019 01:58:00 PM [facility] TEST RESULT IS A TOTAL TRICYCLIC VALUE.T RICYCLIC ANTIDEPRESSANT REFERENCE RANGE: AMITRIPTYLINE AND METABOLITE (NORTRIPTYL INE) TOTAL THERAPEUTIC: 75 - 225 NG/ML. TOTAL TOXIC: > 400 NG/ML. NORTRIPTYLINE ONLY TOTAL THERAPEUTIC: 50 - 150 NG/ML. TOTAL TOXIC: > 400 NG/ML. IMIPRAMINE AND METABOLITE (DESIPRAMINE) TOTAL THERAPEUTIC: 125 - 175 NG/ML. TOTAL TOXIC: > 400 NG/ML. Name Value Range Interpretation Description Data Sup porting Code Source(s) Document(s ) TRICYCLIC < 80 [place] ANTIDEPRESSANT ng/mL Hospital ID Date Data Source [id number] 04/17/2019 01:58:00 PM [facility] REFERENCE RANGES: ANALGESIC: 0.0 - 10.0 MG/DL. ARTHRITIC THERAPY: 15.0 - 30.0 MG/DL. Name Value Range Interpretation Description Data Sup porting Code Source(s) Document(s ) Salicylates < 3.0 [place] [Mass/volume] mg/dL Hospital in Serum or Plasma ID Date Data Source [id number] 04/17/2019 01:58:00 PM [facility] THERAPEUTIC RANGE: 10.0-30.0 UG/MLTOXIC RANGE: 4 HRS AFTER INGESTION >150 UG/ML 12 HRS AFTER INGESTION >35 UG/ML Name Value Range Interpretation Description Data Sup porting Code Source(s) Document(s ) ACETAMINOPHEN < 10.0 [place] ug/mL Hospital ID Date Data Source [id number] 04/17/2019 01:58:00 PM [facility] TEST PERFORMED BY [facility] [facility] [email or web address] [facility] CHEMILUMINESCENCE METHOD. Name Value Range Interpretation Description Data Sup porting Code Source(s) Document(s ) Troponin < 0.01 [place] I.cardiac ng/mL Hospital [Mass/volume ] in Serum or Plasma ID Date Data Source [id number] 04/17/2019 01:58:00 PM EST [facility] Name Value Range Interpretation Description Data Sup porting Code Source(s) Document(s ) Creatine 289 U/L [facility] [Enzymatic activity/volu me] in Serum or Plasma ID Date Data Source [id number] 04/17/2019 01:58:00 PM EST [facility] Name Value Range Interpretation Description Data Sup porting Code Source(s) Document(s ) Aspartate 55 U/L [place] aminotransferase [place] [Enzymatic Hospital activity/volume] in Serum or Plasma ID Date Data Source [id number] 04/17/2019 01:58:00 PM [facility] Name Value Range Interpretation Description Data Sup porting Code Source(s) Document(s ) Alanine 22 U/L [place] aminotransferase [facility] [Enzymatic Hospital activity/volume] in Serum or Plasma ID Date Data Source [id number] 04/17/2019 01:58:00 PM [facility] Name Value Range Interpretation Description Data Sup porting Code Source(s) Document(s ) Alkaline 194 U/L [place] phosphatase Hospital [Enzymatic activity/volume ] in Serum or Plasma ID Date Data Source [id number] 04/17/2019 01:58:00 PM [facility] Name Value Range Interpretation Description Data Sup porting Code Source(s) Document(s ) Bilirubin.t 2.4 mg/dL [facility] [Mass/volum e] in Serum or Plasma ID Date Data Source [id number] 04/17/2019 01:58:00 PM [facility] Name Value Range Interpretation Code Description Data Isabel rce(s) Supporting Document(s ) Albumin/Glob 1.0 [place] ulin [Mass Hospital Ratio] in Serum or Plasma ID Date Data Source [id number] 04/17/2019 01:58:00 PM EST [facility] Name Value Range Interpretation Description Data Sup porting Code Source(s) Document(s ) Albumin 4.0 g/dL [place] [Mass/volume Hospital ] in Serum or Plasma ID Date Data Source [id number] 04/17/2019 01:58:00 PM EST [facility] Name Value Range Interpretation Description Data Sup porting Code Source(s) Document(s ) Protein 8.0 g/dL [place] [Mass/volume Hospital ] in Serum or Plasma ID Date Data Source [id number] 04/17/2019 01:58:00 PM EST [facility] Name Value Range Interpretation Description Data Sup porting Code Source(s) Document(s ) Calcium 8.4 mg/dL [place] [Mass/volume Hospital ] in Serum or Plasma ID Date Data Source [id number] 04/17/2019 01:58:00 PM EST [facility] Name Value Range Interpretation Code Description Data Isabel rce(s) Supporting Document(s ) Urea 13.3 [place] nitrogen/Cre Hospital atinine [Mass Ratio] in Serum or Plasma ID Date Data Source [id number] 04/17/2019 01:58:00 PM [facility] Name Value Range Interpretation Description Data Sup porting Code Source(s) Document(s ) Creatinine 0.6 mg/dL [place] [Mass/volume] Hospital in Serum or Plasma ID Date Data Source [id number] 04/17/2019 01:58:00 PM [facility] Name Value Range Interpretation Code Description Data Supporting Source(s) Document(s ) Immature 38.9 % [place] reticulocytes Hospital /Reticulocyte s.total in Blood ID Date Data Source [id number] 04/17/2019 01:58:00 PM EST [facility] Name Value Range Interpretation Description Data Sup porting Code Source(s) Document(s ) Reticulocytes 0.33 [place] [#/volume] in 10*6/uL Hospital Blood by Automated count ID Date Data Source [id number] 04/17/2019 01:58:00 PM EST [facility] Name Value Range Interpretation Description Data Sup porting Code Source(s) Document(s ) Reticulocytes/10 11.34 % [place] 0 erythrocytes Hospital in Blood by Automated count ID Date Data Source [id number] 04/17/2019 01:58:00 PM EST [facility] Name Value Range Interpretation Code Description Data Supporting Source(s) Document(s ) NUCLEATED RBCS 0.8 % [place] (AUTO Hospital DIFF%)DIS ID Date Data Source [id number] 04/17/2019 01:58:00 PM EST [facility] Name Value Range Interpretation Description Data Sup porting Code Source(s) Document(s ) Differential AUTOMATED [place] cell count [facility] method - Blood ID Date Data Source [id number] 04/17/2019 01:58:00 PM EST [facility] Name Value Range Interpretation Description Data Sup porting Code Source(s) Document(s ) Immature 0.03 [place] granulocytes 10*3/uL Hospital [#/volume] in Blood by Automated count ID Date Data Source [id number] 04/17/2019 01:58:00 PM EST [facility] Name Value Range Interpretation Description Data Sup porting Code Source(s) Document(s ) Basophils 0.04 [place] [#/volume] in 10*3/uL Hospital Blood by Automated count ID Date Data Source [id number] 04/17/2019 01:58:00 PM EST [facility] Name Value Range Interpretation Description Data Sup porting Code Source(s) Document(s ) Eosinophils 0.09 [place] [#/volume] in 10*3/uL Hospital Blood by Automated count ID Date Data Source [id number] 04/17/2019 01:58:00 PM EST [facility] Name Value Range Interpretation Description Data Sup porting Code Source(s) Document(s ) Monocytes 1.08 [place] [#/volume] in 10*3/uL Hospital Blood by Automated count ID Date Data Source [id number] 04/17/2019 01:58:00 PM EST [facility] Name Value Range Interpretation Description Data Sup porting Code Source(s) Document(s ) Lymphocytes 1.88 [place] [#/volume] in 10*3/uL Hospital Blood by Automated count ID Date Data Source [id number] 04/17/2019 01:58:00 PM EST [facility] Value Range Interpretation Description Data Sup porting Code Source(s) Document(s ) Neutrophils 4.70 [place] [#/volume] in 10*3/uL [facility] Blood by Automated count ID Date Data Source [id number] 04/17/2019 01:58:00 PM EST [facility] Value Range Interpretation Description Data Sup porting Code Source(s) Document(s ) Nucleated 0.8 % [place] erythrocytes/10 Hospital 0 leukocytes [Ratio] in Blood by Automated count ID Date Data Source [id number] 04/17/2019 01:58:00 PM EST [facility] Value Range Interpretation Description Data Sup porting Code Source(s) Document(s ) Immature 0.4 % [place] granulocytes/10 Hospital 0 leukocytes in Blood by Automated count ID Date Data Source [id number] 04/17/2019 01:58:00 PM [facility] Value Range Interpretation Description Data Sup porting Code Source(s) Document(s ) Basophils/100 0.5 % [place] leukocytes in Hospital Blood by Automated count ID Date Data Source [id number] 04/17/2019 01:58:00 PM EST [facility] Name Value Range Interpretation Description Data Sup porting Code Source(s) Document(s ) Eosinophils/100 1.2 % [place] leukocytes in Hospital Blood by Automated count ID Date Data Source [id number] 04/17/2019 01:58:00 PM EST [facility] Name Value Range Interpretation Description Data Sup porting Code Source(s) Document(s ) Monocytes/100 13.8 % [place] leukocytes in Hospital Blood by Automated count ID Date Data Source [id number] 04/17/2019 01:58:00 PM EST [facility] Name Value Range Interpretation Description Data Sup porting Code Source(s) Document(s ) Lymphocytes/10 24.0 % [place] 0 leukocytes Hospital in Blood by Automated count ID Date Data Source [id number] 04/17/2019 01:58:00 PM EST [facility] Name Value Range Interpretation Description Data Sup porting Code Source(s) Document(s ) Neutrophils/10 60.1 % [place] 0 leukocytes Hospital in Blood by Automated count ID Date Data Source [id number] 04/17/2019 01:58:00 PM EST [facility] Name Value Range Interpretation Description Data Sup porting Code Source(s) Document(s ) Platelet mean 9.5 fL [place] volume Hospital [Entitic volume] in Blood by Automated count ID Date Data Source [id number] 04/17/2019 01:58:00 PM EST [facility] Name Value Range Interpretation Description Data Sup porting Code Source(s) Document(s ) Platelets 280 [place] [#/volume] in 10*3/uL Hospital Blood by Automated count ID Date Data Source [id number] 04/17/2019 01:58:00 PM EST [facility] Name Value Range Interpretation Description Data Sup porting Code Source(s) Document(s ) Erythrocyte 20.8 % [facility] Hospital width [Ratio] by Automated count ID Date Data Source [id number] 04/17/2019 01:58:00 PM [facility] Value Range Interpretation Description Data Sup porting Code Source(s) Document(s ) Erythrocyte mean 34.7 [place] corpuscular g/dL Hospital hemoglobin concentration [Mass/volume] by Automated count ID Date Data Source [id number] 04/17/2019 01:58:00 PM [facility] Value Range Interpretation Description Data Sup porting Code Source(s) Document(s ) Erythrocyte 29.5 pg [facility] corpuscular hemoglobin [Entitic mass] by Automated count ID Date Data Source [id number] 04/17/2019 01:58:00 PM [facility] Value Range Interpretation Description Data Sup porting Code Source(s) Document(s ) Erythrocyte 84.9 fL [facility] corpuscular volume [Entitic volume] by Automated count ID Date Data Source [id number] 04/17/2019 01:58:00 PM [facility] Value Range Interpretation Description Data Sup porting Code Source(s) Document(s ) Hematocrit 24.8 % [place] [Volume Hospital Fraction] of Blood by Automated count ID Date Data Source [id number] 04/17/2019 01:58:00 PM [facility] Value Range Interpretation Description Data Sup porting Code Source(s) Document(s ) Hemoglobin 8.6 g/dL [place] [Mass/volume] Hospital in Blood ID Date Data Source [id number] 04/17/2019 01:58:00 PM [facility] Value Range Interpretation Description Data Sup porting Code Source(s) Document(s ) Erythrocytes 2.92 [place] [#/volume] in 10*6/uL Hospital Blood by Automated count ID Date Data Source [id number] 04/17/2019 01:58:00 PM EST [facility] Name Value Range Interpretation Description Data Sup porting Code Source(s) Document(s ) Leukocytes 7.8 [place] [#/volume] in 10*3/uL Hospital Blood by Automated count ID Date Data Source [id number] 04/17/2019 01:58:00 PM EST [facility] Name Value Range Interpretation Description Data Sup porting Code Source(s) Document(s ) Urea nitrogen 8 mg/dL [place] [Mass/volume] Hospital in Serum or Plasma ID Date Data Source [id number] 04/17/2019 01:58:00 PM EST [facility] Value Range Interpretation Code Description Data Isabel rce(s) Supporting Document(s ) Anion gap in 9 [place] Serum or [facility] Plasma ID Date Data Source [id number] 04/17/2019 01:58:00 PM EST [facility] Value Range Interpretation Description Data Sup porting Code Source(s) Document(s ) Carbon 28 mmol/L [place] dioxide, Hospital total [Moles/volu me] in Serum or Plasma ID Date Data Source [id number] 04/17/2019 01:58:00 PM EST [facility] Name Value Range Interpretation Description Data Sup porting Code Source(s) Document(s ) Chloride 107 [place] [Moles/volum mmol/L Hospital e] in Serum or Plasma ID Date Data Source [id number] 04/17/2019 01:58:00 PM EST [facility] Value Range Interpretation Description Data Sup porting Code Source(s) Document(s ) Potassium 4.1 [place] [Moles/volume mmol/L [facility] ] in Serum or Plasma ID Date Data Source [id number] 04/17/2019 01:58:00 PM [facility] Name Value Range Interpretation Description Data Sup porting Code Source(s) Document(s ) Sodium 140 mmol/L [place] [Moles/volu Hospital fl] in Serum or Plasma ID Date Data Source [id number] 04/17/2019 01:58:00 PM [facility] Name Value Range Interpretation Description Data Sup porting Code Source(s) Document(s ) Glucose 99 mg/dL [place] [Mass/volume [facility] ] in Serum or Plasma ID Date Data Source [id number] 04/17/2019 01:58:00 PM [facility] THERAPEUTIC RANGES:UNFRACTIONATED HEPARI N THERAPY: 60-90 SECONDSARGATROBAN THERAPY: 49-99 SECONDS Name Value Range Interpretation Description Data Sup porting Code Source(s) Document(s ) aPTT in 53.7 s [place] Platelet poor [facility] plasma by Coagulation assay ID Date Data Source [id number] 04/17/2019 01:58:00 PM [facility] THERAPEUTIC RANGE FOR STANDARD ORALANTIC OAGULANT THERAPY: 2.0-3.0THERAPEUTIC RANGE FOR HIGH DOSE ORALANTICOAGULANT THERAPY (MECHANICAL HEARTVALVE REPLACEMENT): 2.5-3.5 Name Value Range Interpretation Description Data Sup porting Code Source(s) Document(s ) INR in Platelet 1.3 [place] poor plasma by Hospital Coagulation assay ID Date Data Source [id number] 04/17/2019 01:58:00 PM [facility] Name Value Range Interpretation Description Data Sup porting Code Source(s) Document(s ) PT panel - 14.1 s [place] Platelet poor [facility] plasma by Coagulation assay ID Date Data Source [id number] 03/31/2019 03:45:00 PM EST [facility] Name Value Range Interpretation Description Data Sup porting Code Source(s) Document(s ) HCG QUALITATIVE NEGATIVE [facility] ID Date Data Source [id number] 03/31/2019 03:45:00 PM EST [facility] Name Value Range Interpretation Description Data Sup porting Code Source(s) Document(s ) Aspartate 51 U/L [place] aminotransferase [place] [Enzymatic Hospital activity/volume] in Serum or Plasma ID Date Data Source [id number] 03/31/2019 03:45:00 PM [facility] Name Value Range Interpretation Description Data Sup porting Code Source(s) Document(s ) Alanine 20 U/L [place] aminotransferase [facility] [Enzymatic Hospital activity/volume] in Serum or Plasma ID Date Data Source [id number] 03/31/2019 03:45:00 PM EST [facility] Name Value Range Interpretation Description Data Sup porting Code Source(s) Document(s ) Alkaline 203 U/L [place] phosphatase Hospital [Enzymatic activity/volume ] in Serum or Plasma ID Date Data Source [id number] 03/31/2019 03:45:00 PM [facility] Value Range Interpretation Description Data Sup porting Code Source(s) Document(s ) Bilirubin.t 2.1 mg/dL [facility] [Mass/volum e] in Serum or Plasma ID Date Data Source [id number] 03/31/2019 03:45:00 PM [facility] Name Value Range Interpretation Code Description Data Isabel rce(s) Supporting Document(s ) Albumin/Glob 0.9 [place] ulin [Mass Hospital Ratio] in Serum or Plasma ID Date Data Source [id number] 03/31/2019 03:45:00 PM EST [facility] Value Range Interpretation Description Data Sup porting Code Source(s) Document(s ) Albumin 3.8 g/dL [place] [Mass/volume Hospital ] in Serum or Plasma ID Date Data Source [id number] 03/31/2019 03:45:00 PM EST [facility] Name Value Range Interpretation Description Data Sup porting Code Source(s) Document(s ) Protein 7.9 g/dL [place] [Mass/volume Hospital ] in Serum or Plasma ID Date Data Source [id number] 03/31/2019 03:45:00 PM EST [facility] Name Value Range Interpretation Description Data Sup porting Code Source(s) Document(s ) Calcium 8.5 mg/dL [place] [Mass/volume Hospital ] in Serum or Plasma ID Date Data Source [id number] 03/31/2019 03:45:00 PM EST [facility] Name Value Range Interpretation Code Description Data Isabel rce(s) Supporting Document(s ) Urea 13.3 [place] nitrogen/Cre Hospital atinine [Mass Ratio] in Serum or Plasma ID Date Data Source [id number] 03/31/2019 03:45:00 PM EST [facility] Name Value Range Interpretation Description Data Sup porting Code Source(s) Document(s ) Creatinine 0.6 mg/dL [place] [Mass/volume] Hospital in Serum or Plasma ID Date Data Source [id number] 03/31/2019 03:45:00 PM EST [facility] Name Value Range Interpretation Description Data Sup porting Code Source(s) Document(s ) Urea nitrogen 8 mg/dL [place] [Mass/volume] Hospital in Serum or Plasma ID Date Data Source [id number] 03/31/2019 03:45:00 PM EST [facility] Value Range Interpretation Code Description Data Isabel rce(s) Supporting Document(s ) Anion gap in 11 [place] Serum or Hospital Plasma ID Date Data Source [id number] 03/31/2019 03:45:00 PM EST [facility] Name Value Range Interpretation Description Data Sup porting Code Source(s) Document(s ) Carbon 28 mmol/L [place] dioxide, Hospital total [Moles/volu me] in Serum or Plasma ID Date Data Source [id number] 03/31/2019 03:45:00 PM EST [facility] Name Value Range Interpretation Description Data Sup porting Code Source(s) Document(s ) Chloride 103 [place] [Moles/volum mmol/L Hospital e] in Serum or Plasma ID Date Data Source [id number] 03/31/2019 03:45:00 PM EST [facility] Name Value Range Interpretation Description Data Sup porting Code Source(s) Document(s ) Potassium 4.1 [place] [Moles/volume mmol/L Hospital ] in Serum or Plasma ID Date Data Source [id number] 03/31/2019 03:45:00 PM EST [facility] Name Value Range Interpretation Description Data Sup porting Code Source(s) Document(s ) Sodium 138 mmol/L [place] [Moles/volu Hospital me] in Serum or Plasma ID Date Data Source [id number] 03/31/2019 03:45:00 PM EST [facility] Name Value Range Interpretation Description Data Sup porting Code Source(s) Document(s ) Glucose 103 mg/dL [place] [Mass/volume Hospital ] in Serum or Plasma ID Date Data Source [id number] 03/31/2019 03:45:00 PM EST [facility] Name Value Range Interpretation Code Description Data Supporting Source(s) Document(s ) Immature 29.8 % [place] reticulocytes Hospital /Reticulocyte s.total in Blood ID Date Data Source [id number] 03/31/2019 03:45:00 PM EST [facility] Name Value Range Interpretation Description Data Sup porting Code Source(s) Document(s ) Reticulocytes 0.25 [place] [#/volume] in 10*6/uL Hospital Blood by Automated count ID Date Data Source [id number] 03/31/2019 03:45:00 PM EST [facility] Name Value Range Interpretation Description Data Sup porting Code Source(s) Document(s ) Reticulocytes/10 8.08 % [place] 0 erythrocytes Hospital in Blood by Automated count ID Date Data Source [id number] 03/31/2019 03:45:00 PM EST [facility] Name Value Range Interpretation Code Description Data Supporting Source(s) Document(s ) NUCLEATED RBCS 0.7 % [place] (AUTO Hospital DIFF%)DIS ID Date Data Source [id number] 03/31/2019 03:45:00 PM EST [facility] Name Value Range Interpretation Description Data Sup porting Code Source(s) Document(s ) Differential AUTOMATED [place] cell count Hospital method - Blood ID Date Data Source [id number] 03/31/2019 03:45:00 PM [facility] Name Value Range Interpretation Description Data Sup porting Code Source(s) Document(s ) Immature 0.03 [place] granulocytes 10*3/uL Hospital [#/volume] in Blood by Automated count ID Date Data Source [id number] 03/31/2019 03:45:00 PM EST [facility] Name Value Range Interpretation Description Data Sup porting Code Source(s) Document(s ) Basophils 0.02 [place] [#/volume] in 10*3/uL Hospital Blood by Automated count ID Date Data Source [id number] 03/31/2019 03:45:00 PM EST [facility] Name Value Range Interpretation Description Data Sup porting Code Source(s) Document(s ) Eosinophils 0.06 [place] [#/volume] in 10*3/uL Hospital Blood by Automated count ID Date Data Source [id number] 03/31/2019 03:45:00 PM EST [facility] Value Range Interpretation Description Data Sup porting Code Source(s) Document(s ) Monocytes 1.04 [place] [#/volume] in 10*3/uL Hospital Blood by Automated count ID Date Data Source [id number] 03/31/2019 03:45:00 PM EST [facility] Value Range Interpretation Description Data Sup porting Code Source(s) Document(s ) Lymphocytes 1.65 [place] [#/volume] in 10*3/uL Hospital Blood by Automated count ID Date Data Source [id number] 03/31/2019 03:45:00 PM EST [facility] Value Range Interpretation Description Data Sup porting Code Source(s) Document(s ) Neutrophils 4.29 [place] [#/volume] in 10*3/uL Hospital Blood by Automated count ID Date Data Source [id number] 03/31/2019 03:45:00 PM EST [facility] Value Range Interpretation Description Data Sup porting Code Source(s) Document(s ) Nucleated 0.7 % [place] erythrocytes/10 Hospital 0 leukocytes [Ratio] in Blood by Automated count ID Date Data Source [id number] 03/31/2019 03:45:00 PM EST [facility] Value Range Interpretation Description Data Sup porting Code Source(s) Document(s ) Immature 0.4 % [place] granulocytes/10 Hospital 0 leukocytes in Blood by Automated count ID Date Data Source [id number] 03/31/2019 03:45:00 PM [facility] Value Range Interpretation Description Data Sup porting Code Source(s) Document(s ) Basophils/100 0.3 % [place] leukocytes in Hospital Blood by Automated count ID Date Data Source [id number] 03/31/2019 03:45:00 PM EST [facility] Name Value Range Interpretation Description Data Sup porting Code Source(s) Document(s ) Eosinophils/100 0.8 % [place] leukocytes in Hospital Blood by Automated count ID Date Data Source [id number] 03/31/2019 03:45:00 PM EST [facility] Name Value Range Interpretation Description Data Sup porting Code Source(s) Document(s ) Monocytes/100 14.7 % [place] leukocytes in Hospital Blood by Automated count ID Date Data Source [id number] 03/31/2019 03:45:00 PM EST [facility] Value Range Interpretation Description Data Sup porting Code Source(s) Document(s ) Lymphocytes/10 23.3 % [place] 0 leukocytes Hospital in Blood by Automated count ID Date Data Source [id number] 03/31/2019 03:45:00 PM EST [facility] Value Range Interpretation Description Data Sup porting Code Source(s) Document(s ) Neutrophils/10 60.5 % [place] 0 leukocytes Hospital in Blood by Automated count ID Date Data Source [id number] 03/31/2019 03:45:00 PM EST [facility] Name Value Range Interpretation Description Data Sup porting Code Source(s) Document(s ) Platelet mean 10.6 fL [place] volume Hospital [Entitic volume] in Blood by Automated count ID Date Data Source [id number] 03/31/2019 03:45:00 PM EST [facility] Name Value Range Interpretation Description Data Sup porting Code Source(s) Document(s ) Platelets 285 [place] [#/volume] in 10*3/uL Hospital Blood by Automated count ID Date Data Source [id number] 03/31/2019 03:45:00 PM [facility] Name Value Range Interpretation Description Data Sup porting Code Source(s) Document(s ) Erythrocyte 18.7 % [facility] Hospital width [Ratio] by Automated count ID Date Data Source [id number] 03/31/2019 03:45:00 PM [facility] Value Range Interpretation Description Data Sup porting Code Source(s) Document(s ) Erythrocyte mean 35.4 [place] corpuscular g/dL Hospital hemoglobin concentration [Mass/volume] by Automated count ID Date Data Source [id number] 03/31/2019 03:45:00 PM [facility] Value Range Interpretation Description Data Sup porting Code Source(s) Document(s ) Erythrocyte 29.5 pg [facility] corpuscular hemoglobin [Entitic mass] by Automated count ID Date Data Source [id number] 03/31/2019 03:45:00 PM [facility] Value Range Interpretation Description Data Sup porting Code Source(s) Document(s ) Erythrocyte 83.4 fL [facility] corpuscular volume [Entitic volume] by Automated count ID Date Data Source [id number] 03/31/2019 03:45:00 PM [facility] Value Range Interpretation Description Data Sup porting Code Source(s) Document(s ) Hematocrit 25.7 % [place] [Volume Hospital Fraction] of Blood by Automated count ID Date Data Source [id number] 03/31/2019 03:45:00 PM [facility] Value Range Interpretation Description Data Sup porting Code Source(s) Document(s ) Hemoglobin 9.1 g/dL [place] [Mass/volume] Hospital in Blood ID Date Data Source [id number] 03/31/2019 03:45:00 PM EST [facility] Name Value Range Interpretation Description Data Sup porting Code Source(s) Document(s ) Erythrocytes 3.08 [place] [#/volume] in 10*6/uL Hospital Blood by Automated count ID Date Data Source [id number] 03/31/2019 03:45:00 PM EST [facility] Name Value Range Interpretation Description Data Sup porting Code Source(s) Document(s ) Leukocytes 7.1 [place] [#/volume] in 10*3/uL Hospital Blood by Automated count ID Date Data Source [id number] 03/13/2019 02:53:00 PM [facility] Name Value Range Interpretation Description Data Sup porting Code Source(s) Document(s ) Choriogonadotropin NEGATIVE [facility] ( test) [place] [Presence] in Urine Hospital ID Date Data Source [id number] 03/13/2019 02:53:00 PM [facility] Name Value Range Interpretation Description Data Sup porting Code Source(s) Document(s ) Choriogonadotropin NEGATIVE [facility] ( test) [place] [Presence] in Urine Hospital ID Date Data Source [id number] 03/13/2019 01:21:00 PM [facility] Name Value Range Interpretation Code Description Data Isabel rce(s) Supporting Document(s ) URINE 0-5 [facility] CASTS ID Date Data Source [id number] 03/13/2019 01:21:00 PM [facility] Name Value Range Interpretation Description Data Sup porting Code Source(s) Document(s ) URINE 1+ [place] EPITHELIAL [facility] CELLS ID Date Data Source [id number] 03/13/2019 01:21:00 PM EST [facility] Name Value Range Interpretation Description Data Sup porting Code Source(s) Document(s ) Erythrocytes 0-3 [place] [#/area] in /[HPF] Hospital Urine sediment by Automated count ID Date Data Source [id number] 03/13/2019 01:21:00 PM EST [facility] Name Value Range Interpretation Description Data Sup porting Code Source(s) Document(s ) Leukocytes 0-3 [place] [#/area] in /[HPF] Hospital Urine sediment by Automated count ID Date Data Source [id number] 03/13/2019 01:21:00 PM [facility] Name Value Range Interpretation Description Data Sup porting Code Source(s) Document(s ) Leukocyte NEGATIVE [place] esterase Hospital [Presence] in Urine by Test strip ID Date Data Source [id number] 03/13/2019 01:21:00 PM [facility] Name Value Range Interpretation Description Data Sup porting Code Source(s) Document(s ) URINE NEGATIVE [facility] Hospital ID Date Data Source [id number] 03/13/2019 01:21:00 PM [facility] Name Value Range Interpretation Description Data Sup porting Code Source(s) Document(s ) Erythrocytes TRACE [place] [#/volume] in Hospital Urine by Test strip ID Date Data Source [id number] 03/13/2019 01:21:00 PM EST [facility] Name Value Range Interpretation Code Description Data Isabel rce(s) Supporting Document(s ) Bilirubin. NEGATIVE [place] total Hospital [Presence] in Urine by Test strip ID Date Data Source [id number] 03/13/2019 01:21:00 PM [facility] Value Range Interpretation Description Data Sup porting Code Source(s) Document(s ) Urobilinogen 1.0 [place] [Units/volume] mg/dL Hospital in Urine by Test strip ID Date Data Source [id number] 03/13/2019 01:21:00 PM EST [facility] Name Value Range Interpretation Description Data Sup porting Code Source(s) Document(s ) Ketones NEGATIVE [place] [Mass/volume Hospital ] in Urine by Test strip ID Date Data Source [id number] 03/13/2019 01:21:00 PM EST [facility] Name Value Range Interpretation Description Data Sup porting Code Source(s) Document(s ) Glucose NEGATIVE [place] [Mass/volume Hospital ] in Urine by Test strip ID Date Data Source [id number] 03/13/2019 01:21:00 PM EST [facility] Name Value Range Interpretation Description Data Sup porting Code Source(s) Document(s ) Protein NEGATIVE [place] [Presence] Hospital in Urine by Test strip ID Date Data Source [id number] 03/13/2019 01:21:00 PM EST [facility] [facility] Name Value Range Interpretation Code Description Data Isabel rce(s) Supporting Document(s ) pH of Urine 6.5 [place] by Test Hospital strip ID Date Data Source [id number] 03/13/2019 01:21:00 PM EST [facility] Name Value Range Interpretation Code Description Data Supporting Source(s) Document(s ) Specific 1.011 [place] gravity of Hospital Urine by Test strip ID Date Data Source [id number] 03/13/2019 01:21:00 PM EST [facility] [facility] Name Value Range Interpretation Description Data Sup porting Code Source(s) Document(s ) Clarity in Urine CLEAR [place] by Refractometry Hospital automated ID Date Data Source [id number] 03/13/2019 01:21:00 PM EST [facility] Name Value Range Interpretation Code Description Data Isabel rce(s) Supporting Document(s ) Color of YELLOW [place] Urine Hospital ID Date Data Source [id number] 03/13/2019 01:21:00 PM EST [facility] Name Value Range Interpretation Description Data Sup porting Code Source(s) Document(s ) Aspartate 54 U/L [facility] aminotransferase [place] [Enzymatic Hospital activity/volume] in Serum or Plasma ID Date Data Source [id number] 03/13/2019 01:21:00 PM EST [facility] Name Value Range Interpretation Description Data Sup porting Code Source(s) Document(s ) Alanine 21 U/L [facility] aminotransferase [place] [Enzymatic Hospital activity/volume] in Serum or Plasma ID Date Data Source [id number] 03/13/2019 01:21:00 PM [facility] Name Value Range Interpretation Description Data Sup porting Code Source(s) Document(s ) Alkaline 239 U/L [place] phosphatase Hospital [Enzymatic activity/volume ] in Serum or Plasma ID Date Data Source [id number] 03/13/2019 01:21:00 PM [facility] Name Value Range Interpretation Description Data Sup porting Code Source(s) Document(s ) Bilirubin.t 2.2 mg/dL [facility] [Mass/volum e] in Serum or Plasma ID Date Data Source [id number] 03/13/2019 01:21:00 PM [facility] Name Value Range Interpretation Code Description Data Isabel rce(s) Supporting Document(s ) Albumin/Glob 1.0 [place] ulin [Mass Hospital Ratio] in Serum or Plasma ID Date Data Source [id number] 03/13/2019 01:21:00 PM [facility] Name Value Range Interpretation Description Data Sup porting Code Source(s) Document(s ) Albumin 3.8 g/dL [place] [Mass/volume Hospital ] in Serum or Plasma ID Date Data Source [id number] 03/13/2019 01:21:00 PM EST [facility] Name Value Range Interpretation Description Data Sup porting Code Source(s) Document(s ) Protein 7.6 g/dL [place] [Mass/volume Hospital ] in Serum or Plasma ID Date Data Source [id number] 03/13/2019 01:21:00 PM EST [facility] Name Value Range Interpretation Description Data Sup porting Code Source(s) Document(s ) Calcium 8.4 mg/dL [place] [Mass/volume Hospital ] in Serum or Plasma ID Date Data Source [id number] 03/13/2019 01:21:00 PM EST [facility] Name Value Range Interpretation Code Description Data Isabel rce(s) Supporting Document(s ) Urea 12.9 [place] nitrogen/Cre Hospital atinine [Mass Ratio] in Serum or Plasma ID Date Data Source [id number] 03/13/2019 01:21:00 PM EST [facility] Name Value Range Interpretation Description Data Sup porting Code Source(s) Document(s ) Creatinine 0.7 mg/dL [place] [Mass/volume] Hospital in Serum or Plasma ID Date Data Source [id number] 03/13/2019 01:21:00 PM EST [facility] Name Value Range Interpretation Description Data Sup porting Code Source(s) Document(s ) Urea nitrogen 9 mg/dL [place] [Mass/volume] Hospital in Serum or Plasma ID Date Data Source [id number] 03/13/2019 01:21:00 PM EST [facility] Name Value Range Interpretation Code Description Data Isabel rce(s) Supporting Document(s ) Anion gap in 11 [place] Serum or Hospital Plasma ID Date Data Source [id number] 03/13/2019 01:21:00 PM EST [facility] Name Value Range Interpretation Description Data Sup porting Code Source(s) Document(s ) Carbon 29 mmol/L [place] dioxide, Hospital total [Moles/volu me] in Serum or Plasma ID Date Data Source [id number] 03/13/2019 01:21:00 PM EST [facility] Name Value Range Interpretation Description Data Sup porting Code Source(s) Document(s ) Chloride 105 [place] [Moles/volum mmol/L Hospital e] in Serum or Plasma ID Date Data Source [id number] 03/13/2019 01:21:00 PM EST [facility] Name Value Range Interpretation Description Data Sup porting Code Source(s) Document(s ) Potassium 3.9 [place] [Moles/volume mmol/L Hospital ] in Serum or Plasma ID Date Data Source [id number] 03/13/2019 01:21:00 PM EST [facility] Name Value Range Interpretation Description Data Sup porting Code Source(s) Document(s ) Sodium 141 mmol/L [place] [Moles/volu Hospital me] in Serum or Plasma ID Date Data Source [id number] 03/13/2019 01:21:00 PM EST [facility] Name Value Range Interpretation Description Data Sup porting Code Source(s) Document(s ) Glucose 102 mg/dL [place] [Mass/volume Hospital ] in Serum or Plasma ID Date Data Source [id number] 03/13/2019 01:21:00 PM EST [facility] Name Value Range Interpretation Code Description Data Isabel rce(s) Supporting Document(s ) URINE 0-5 [facility] CASTS ID Date Data Source [id number] 03/13/2019 01:21:00 PM EST [facility] Name Value Range Interpretation Description Data Sup porting Code Source(s) Document(s ) URINE 1+ [place] EPITHELIAL Hospital CELLS ID Date Data Source [id number] 03/13/2019 01:21:00 PM EST [facility] Name Value Range Interpretation Description Data Sup porting Code Source(s) Document(s ) Erythrocytes 0-3 [place] [#/area] in /[HPF] Hospital Urine sediment by Automated count ID Date Data Source [id number] 03/13/2019 01:21:00 PM EST [facility] Name Value Range Interpretation Description Data Sup porting Code Source(s) Document(s ) Leukocytes 0-3 [place] [#/area] in /[HPF] Hospital Urine sediment by Automated count ID Date Data Source [id number] 03/13/2019 01:21:00 PM EST [facility] Name Value Range Interpretation Description Data Sup porting Code Source(s) Document(s ) Leukocyte NEGATIVE [place] esterase Hospital [Presence] in Urine by Test strip ID Date Data Source [id number] 03/13/2019 01:21:00 PM EST [facility] Name Value Range Interpretation Description Data Sup porting Code Source(s) Document(s ) URINE NEGATIVE [place] [facility] NITRITES Hospital ID Date Data Source [id number] 03/13/2019 01:21:00 PM EST [facility] Name Value Range Interpretation Description Data Sup porting Code Source(s) Document(s ) Erythrocytes TRACE [place] [#/volume] in Hospital Urine by Test strip ID Date Data Source [id number] 03/13/2019 01:21:00 PM EST [facility] Name Value Range Interpretation Code Description Data Isabel rce(s) Supporting Document(s ) Bilirubin. NEGATIVE [place] total Hospital [Presence] in Urine by Test strip ID Date Data Source [id number] 03/13/2019 01:21:00 PM EST [facility] Name Value Range Interpretation Description Data Sup porting Code Source(s) Document(s ) Urobilinogen 1.0 [place] [Units/volume] mg/dL Hospital in Urine by Test strip ID Date Data Source [id number] 03/13/2019 01:21:00 PM EST [facility] Name Value Range Interpretation Description Data Sup porting Code Source(s) Document(s ) Ketones NEGATIVE [place] [Mass/volume Hospital ] in Urine by Test strip ID Date Data Source [id number] 03/13/2019 01:21:00 PM EST [facility] Name Value Range Interpretation Description Data Sup porting Code Source(s) Document(s ) Glucose NEGATIVE [place] [Mass/volume Hospital ] in Urine by Test strip ID Date Data Source [id number] 03/13/2019 01:21:00 PM EST [facility] Name Value Range Interpretation Description Data Sup porting Code Source(s) Document(s ) Protein NEGATIVE [place] [Presence] Hospital in Urine by Test strip ID Date Data Source [id number] 03/13/2019 01:21:00 PM EST [facility] Name Value Range Interpretation Code Description Data Isabel rce(s) Supporting Document(s ) pH of Urine 6.5 [place] by Test Hospital strip ID Date Data Source [id number] 03/13/2019 01:21:00 PM EST [facility] Name Value Range Interpretation Code Description Data Supporting Source(s) Document(s ) Specific 1.011 [place] gravity of Hospital Urine by Test strip ID Date Data Source [id number] 03/13/2019 01:21:00 PM EST [facility] Name Value Range Interpretation Description Data Sup porting Code Source(s) Document(s ) Clarity in Urine CLEAR [place] by Refractometry Hospital automated ID Date Data Source [id number] 03/13/2019 01:21:00 PM EST [facility] Name Value Range Interpretation Code Description Data Isabel rce(s) Supporting Document(s ) Color of YELLOW [place] Urine Hospital ID Date Data Source [id number] 03/13/2019 01:21:00 PM EST [facility] Name Value Range Interpretation Description Data Sup porting Code Source(s) Document(s ) Reticulocytes 0.02 [place] [#/volume] in 10*6/uL Hospital Blood by Automated count ID Date Data Source [id number] 03/13/2019 01:21:00 PM [facility] Name Value Range Interpretation Description Data Sup porting Code Source(s) Document(s ) Reticulocytes/10 5.80 % [place] 0 erythrocytes Hospital in Blood by Automated count ID Date Data Source [id number] 03/13/2019 01:21:00 PM [facility] Name Value Range Interpretation Code Description Data Supporting Source(s) Document(s ) NUCLEATED RBCS 0.5 % [place] (AUTO Hospital DIFF%)DIS ID Date Data Source [id number] 03/13/2019 01:21:00 PM [facility] Name Value Range Interpretation Description Data Sup porting Code Source(s) Document(s ) Differential AUTOMATED [place] cell count [facility] method - Blood ID Date Data Source [id number] 03/13/2019 01:21:00 PM [facility] Value Range Interpretation Description Data Sup porting Code Source(s) Document(s ) Immature 0.03 [place] granulocytes 10*3/uL Hospital [#/volume] in Blood by Automated count ID Date Data Source [id number] 03/13/2019 01:21:00 PM EST [facility] Name Value Range Interpretation Description Data Sup porting Code Source(s) Document(s ) Basophils 0.04 [place] [#/volume] in 10*3/uL Hospital Blood by Automated count ID Date Data Source [id number] 03/13/2019 01:21:00 PM [facility] Value Range Interpretation Description Data Sup porting Code Source(s) Document(s ) Eosinophils 0.09 [place] [#/volume] in 10*3/uL Hospital Blood by Automated count ID Date Data Source [id number] 03/13/2019 01:21:00 PM [facility] Value Range Interpretation Description Data Sup porting Code Source(s) Document(s ) Monocytes 1.18 [place] [#/volume] in 10*3/uL Hospital Blood by Automated count ID Date Data Source [id number] 03/13/2019 01:21:00 PM [facility] Value Range Interpretation Description Data Sup porting Code Source(s) Document(s ) Lymphocytes 2.35 [place] [#/volume] in 10*3/uL Hospital Blood by Automated count ID Date Data Source [id number] 03/13/2019 01:21:00 PM [facility] Value Range Interpretation Description Data Sup porting Code Source(s) Document(s ) Neutrophils 4.61 [place] [#/volume] in 10*3/uL Hospital Blood by Automated count ID Date Data Source [id number] 03/13/2019 01:21:00 PM [facility] Value Range Interpretation Description Data Sup porting Code Source(s) Document(s ) Nucleated 0.5 % [place] erythrocytes/10 Hospital 0 leukocytes [Ratio] in Blood by Automated count ID Date Data Source [id number] 03/13/2019 01:21:00 PM EST [facility] Name Value Range Interpretation Description Data Sup porting Code Source(s) Document(s ) Immature 0.4 % [place] granulocytes/10 Hospital 0 leukocytes in Blood by Automated count ID Date Data Source [id number] 03/13/2019 01:21:00 PM EST [facility] Name Value Range Interpretation Description Data Sup porting Code Source(s) Document(s ) Basophils/100 0.5 % [place] leukocytes in Hospital Blood by Automated count ID Date Data Source [id number] 03/13/2019 01:21:00 PM EST [facility] Name Value Range Interpretation Description Data Sup porting Code Source(s) Document(s ) Eosinophils/100 1.1 % [place] leukocytes in Hospital Blood by Automated count ID Date Data Source [id number] 03/13/2019 01:21:00 PM EST [facility] Name Value Range Interpretation Description Data Sup porting Code Source(s) Document(s ) Monocytes/100 14.2 % [place] leukocytes in Hospital Blood by Automated count ID Date Data Source [id number] 03/13/2019 01:21:00 PM EST [facility] Name Value Range Interpretation Description Data Sup porting Code Source(s) Document(s ) Lymphocytes/10 28.3 % [place] 0 leukocytes Hospital in Blood by Automated count ID Date Data Source [id number] 03/13/2019 01:21:00 PM EST [facility] Name Value Range Interpretation Description Data Sup porting Code Source(s) Document(s ) Neutrophils/10 55.5 % [place] 0 leukocytes Hospital in Blood by Automated count ID Date Data Source [id number] 03/13/2019 01:21:00 PM EST [facility] Name Value Range Interpretation Description Data Sup porting Code Source(s) Document(s ) Platelet mean 10.4 fL [facility] [facility] volume Hospital [Entitic volume] in Blood by Automated count ID Date Data Source [id number] 03/13/2019 01:21:00 PM [facility] Value Range Interpretation Description Data Sup porting Code Source(s) Document(s ) Platelets 238 [place] [#/volume] in 10*3/uL Hospital Blood by Automated count ID Date Data Source [id number] 03/13/2019 01:21:00 PM [facility] Value Range Interpretation Description Data Sup porting Code Source(s) Document(s ) Erythrocyte 19.1 % [place] distribution Hospital width [Ratio] by Automated count ID Date Data Source [id number] 03/13/2019 01:21:00 PM [facility] Value Range Interpretation Description Data Sup porting Code Source(s) Document(s ) Erythrocyte mean 35.8 [place] corpuscular g/dL Hospital hemoglobin concentration [Mass/volume] by Automated count ID Date Data Source [id number] 03/13/2019 01:21:00 PM [facility] Value Range Interpretation Description Data Sup porting Code Source(s) Document(s ) Erythrocyte 29.9 pg [facility] corpuscular hemoglobin [Entitic mass] by Automated count ID Date Data Source [id number] 03/13/2019 01:21:00 PM [facility] Value Range Interpretation Description Data Sup porting Code Source(s) Document(s ) Erythrocyte 83.7 fL [place] [facility] mean Hospital corpuscular volume [Entitic volume] by Automated count ID Date Data Source [id number] 03/13/2019 01:21:00 PM [facility] Value Range Interpretation Description Data Sup porting Code Source(s) Document(s ) Hematocrit 24.6 % [place] [Volume Hospital Fraction] of Blood by Automated count ID Date Data Source [id number] 03/13/2019 01:21:00 PM [facility] Name Value Range Interpretation Description Data Sup porting Code Source(s) Document(s ) Hemoglobin 8.8 g/dL [place] [Mass/volume] Hospital in Blood ID Date Data Source [id number] 03/13/2019 01:21:00 PM [facility] Name Value Range Interpretation Description Data Sup porting Code Source(s) Document(s ) Erythrocytes 2.94 [place] [#/volume] in 10*6/uL Hospital Blood by Automated count ID Date Data Source [id number] 03/13/2019 01:21:00 PM [facility] Value Range Interpretation Description Data Sup porting Code Source(s) Document(s ) Leukocytes 8.3 [place] [#/volume] in 10*3/uL Hospital Blood by Automated count ID Date Data Source [id number] 02/28/2019 12:17:00 PM [facility] TEST PERFORMED BY [email or web address] CHEMILUMINESCENCE METHOD. Name Value Range Interpretation Description Data Sup porting Code Source(s) Document(s ) Troponin < 0.01 [place] I.cardiac ng/mL Hospital [Mass/volume ] in Serum or Plasma ID Date Data Source [id number] 02/28/2019 12:17:00 PM [facility] Name Value Range Interpretation Description Data Sup porting Code Source(s) Document(s ) Aspartate 53 U/L White aminotransferase [place] [Enzymatic Hospital activity/volume] in Serum or Plasma ID Date Data Source [id number] 02/28/2019 12:17:00 PM [facility] Name Value Range Interpretation Description Data Sup porting Code Source(s) Document(s ) Alanine 20 U/L White aminotransferase [place] [Enzymatic Hospital activity/volume] in Serum or Plasma ID Date Data Source [id number] 02/28/2019 12:17:00 PM EST [facility] Name Value Range Interpretation Description Data Sup porting Code Source(s) Document(s ) Alkaline 180 U/L [facility] [facility] phosphatase Hospital [Enzymatic activity/volume ] in Serum or Plasma ID Date Data Source [id number] 02/28/2019 12:17:00 PM EST [facility] Name Value Range Interpretation Description Data Sup porting Code Source(s) Document(s ) Bilirubin.t 2.4 mg/dL [facility] [Mass/volum e] in Serum or Plasma ID Date Data Source [id number] 02/28/2019 12:17:00 PM [facility] Name Value Range Interpretation Code Description Data Isabel rce(s) Supporting Document(s ) [facility] in Serum or Plasma ID Date Data Source [id number] 02/28/2019 12:17:00 PM [facility] Name Value Range Interpretation Description Data Sup porting Code Source(s) Document(s ) Albumin 3.7 g/dL [facility] [facility] [Mass/volume Hospital ] in Serum or Plasma ID Date Data Source [id number] 02/28/2019 12:17:00 PM EST [facility] Name Value Range Interpretation Description Data Sup porting Code Source(s) Document(s ) Protein 7.7 g/dL [facility] [Mass/volume Hospital ] in Serum or Plasma ID Date Data Source [id number] 02/28/2019 12:17:00 PM [facility] Name Value Range Interpretation Description Data Sup porting Code Source(s) Document(s ) Calcium 8.4 mg/dL [facility] [facility] [Mass/volume Hospital ] in Serum or Plasma ID Date Data Source [id number] 02/28/2019 12:17:00 PM EST [facility] Name Value Range Interpretation Code Description Data Isabel rce(s) Supporting Document(s ) Urea 11.7 [facility] [facility] nitrogen/Cre [facility] atinine [Mass Ratio] in Serum or Plasma ID Date Data Source [id number] 02/28/2019 12:17:00 PM EST [facility] Name Value Range Interpretation Description Data Sup porting Code Source(s) Document(s ) Creatinine 0.6 mg/dL [facility] [Mass/volume] Hospital in Serum or Plasma ID Date Data Source [id number] 02/28/2019 12:17:00 PM EST [facility] Name Value Range Interpretation Description Data Sup porting Code Source(s) Document(s ) Urea nitrogen 7 mg/dL [facility] [facility] [Mass/volume] Hospital in Serum or Plasma ID Date Data Source [id number] 02/28/2019 12:17:00 PM EST [facility] Name Value Range Interpretation Code Description Data Isabel rce(s) Supporting Document(s ) Anion gap in 9 [facility] [facility] Serum or Hospital Plasma ID Date Data Source [id number] 02/28/2019 12:17:00 PM EST [facility] Name Value Range Interpretation Description Data Sup porting Code Source(s) Document(s ) Carbon 29 mmol/L [facility] [facility] dioxide, Hospital total [Moles/volu me] in Serum or Plasma ID Date Data Source [id number] 02/28/2019 12:17:00 PM EST [facility] Name Value Range Interpretation Description Data Sup porting Code Source(s) Document(s ) Chloride 104 [facility] [facility] [Moles/volum mmol/L Hospital e] in Serum or Plasma ID Date Data Source [id number] 02/28/2019 12:17:00 PM [facility] Name Value Range Interpretation Description Data Sup porting Code Source(s) Document(s ) Potassium 4.1 [facility] [facility] [Moles/volume mmol/L Hospital ] in Serum or Plasma ID Date Data Source [id number] 02/28/2019 12:17:00 PM [facility] Name Value Range Interpretation Description Data Sup porting Code Source(s) Document(s ) Sodium 138 mmol/L [facility] [facility] [Moles/volu Hospital fl] in Serum or Plasma ID Date Data Source [id number] 02/28/2019 12:17:00 PM [facility] Name Value Range Interpretation Description Data Sup porting Code Source(s) Document(s ) Glucose 98 mg/dL [place] [Mass/volume [facility] ] in Serum or Plasma ID Date Data Source [id number] 02/28/2019 12:17:00 PM [facility] THERAPEUTIC RANGES:UNFRACTIONATED HEPARI N THERAPY: 60-90 SECONDSARGATROBAN THERAPY: 49-99 SECONDS Name Value Range Interpretation Description Data Sup porting Code Source(s) Document(s ) aPTT in 35.4 s [place] Platelet poor [facility] plasma by Coagulation assay ID Date Data Source [id number] 02/28/2019 12:17:00 PM [facility] THERAPEUTIC RANGE FOR STANDARD ORALANTIC OAGULANT THERAPY: 2.0-3.0THERAPEUTIC RANGE FOR HIGH DOSE ORALANTICOAGULANT THERAPY (MECHANICAL HEARTVALVE REPLACEMENT): 2.5-3.5 Name Value Range Interpretation Description Data Sup porting Code Source(s) Document(s ) INR in Platelet 1.1 [facility] [facility] poor plasma by Hospital Coagulation assay ID Date Data Source [id number] 02/28/2019 12:17:00 PM [facility] Name Value Range Interpretation Description Data Sup porting Code Source(s) Document(s ) PT panel - 12.2 s [facility] [facility] Platelet poor Hospital plasma by Coagulation assay ID Date Data Source [id number] 02/28/2019 12:17:00 PM EST [facility] Name Value Range Interpretation Code Description Data Supporting Source(s) Document(s ) Immature 36.1 % [facility] [facility] reticulocytes Hospital /Reticulocyte s.total in Blood ID Date Data Source [id number] 02/28/2019 12:17:00 PM EST [facility] Name Value Range Interpretation Description Data Sup porting Code Source(s) Document(s ) Reticulocytes 0.24 [place] [facility] [#/volume] in 10*6/uL Hospital Blood by Automated count ID Date Data Source [id number] 02/28/2019 12:17:00 PM EST [facility] Name Value Range Interpretation Description Data Sup porting Code Source(s) Document(s ) Reticulocytes/10 7.77 % [facility] [facility] 0 erythrocytes Hospital in Blood by Automated count ID Date Data Source [id number] 02/28/2019 12:17:00 PM EST [facility] Name Value Range Interpretation Code Description Data Supporting Source(s) Document(s ) NUCLEATED RBCS 0.5 % [place] [facility] (AUTO Hospital DIFF%)DIS ID Date Data Source [id number] 02/28/2019 12:17:00 PM EST [facility] Name Value Range Interpretation Description Data Sup porting Code Source(s) Document(s ) Differential AUTOMATED [place] cell count [facility] method - Blood ID Date Data Source [id number] 02/28/2019 12:17:00 PM EST [facility] Name Value Range Interpretation Description Data Sup porting Code Source(s) Document(s ) Immature 0.03 [facility] [facility] granulocytes 10*3/uL Hospital [#/volume] in Blood by Automated count ID Date Data Source [id number] 02/28/2019 12:17:00 PM [facility] Name Value Range Interpretation Description Data Sup porting Code Source(s) Document(s ) Basophils 0.06 [place] [#/volume] in 10*3/uL Hospital Blood by Automated count ID Date Data Source [id number] 02/28/2019 12:17:00 PM [facility] Value Range Interpretation Description Data Sup porting Code Source(s) Document(s ) Eosinophils 0.11 [place] [#/volume] in 10*3/uL Hospital Blood by Automated count ID Date Data Source [id number] 02/28/2019 12:17:00 PM [facility] Value Range Interpretation Description Data Sup porting Code Source(s) Document(s ) Monocytes 1.16 [place] [#/volume] in 10*3/uL Hospital Blood by Automated count ID Date Data Source [id number] 02/28/2019 12:17:00 PM [facility] Value Range Interpretation Description Data Sup porting Code Source(s) Document(s ) Lymphocytes 1.88 [place] [#/volume] in 10*3/uL Hospital Blood by Automated count ID Date Data Source [id number] 02/28/2019 12:17:00 PM [facility] Value Range Interpretation Description Data Sup porting Code Source(s) Document(s ) Neutrophils 5.86 [place] [#/volume] in 10*3/uL Hospital Blood by Automated count ID Date Data Source [id number] 02/28/2019 12:17:00 PM [facility] Value Range Interpretation Description Data Sup porting Code Source(s) Document(s ) Nucleated 0.5 % [facility] [facility] erythrocytes/10 Hospital 0 leukocytes [Ratio] in Blood by Automated count ID Date Data Source [id number] 02/28/2019 12:17:00 PM EST [facility] Name Value Range Interpretation Description Data Sup porting Code Source(s) Document(s ) Immature 0.3 % [facility] [facility] granulocytes/10 Hospital 0 leukocytes in Blood by Automated count ID Date Data Source [id number] 02/28/2019 12:17:00 PM EST [facility] Name Value Range Interpretation Description Data Sup porting Code Source(s) Document(s ) Basophils/100 0.7 % [facility] [facility] leukocytes in Hospital Blood by Automated count ID Date Data Source [id number] 02/28/2019 12:17:00 PM EST [facility] Name Value Range Interpretation Description Data Sup porting Code Source(s) Document(s ) Eosinophils/100 1.2 % [facility] [facility] leukocytes in Hospital Blood by Automated count ID Date Data Source [id number] 02/28/2019 12:17:00 PM EST [facility] Name Value Range Interpretation Description Data Sup porting Code Source(s) Document(s ) Monocytes/100 12.7 % [facility] [facility] leukocytes in Hospital Blood by Automated count ID Date Data Source [id number] 02/28/2019 12:17:00 PM EST [facility] Name Value Range Interpretation Description Data Sup porting Code Source(s) Document(s ) Lymphocytes/10 20.7 % [facility] [facility] 0 leukocytes Hospital in Blood by Automated count ID Date Data Source [id number] 02/28/2019 12:17:00 PM EST [facility] Name Value Range Interpretation Description Data Sup porting Code Source(s) Document(s ) Neutrophils/10 64.4 % [facility] [facility] 0 leukocytes Hospital in Blood by Automated count ID Date Data Source [id number] 02/28/2019 12:17:00 PM EST [facility] Name Value Range Interpretation Description Data Sup porting Code Source(s) Document(s ) Platelet mean 10.6 fL [facility] [facility] volume Hospital [Entitic volume] in Blood by Automated count ID Date Data Source [id number] 02/28/2019 12:17:00 PM [facility] Value Range Interpretation Description Data Sup porting Code Source(s) Document(s ) Platelets 246 [place] [#/volume] in 10*3/uL Hospital Blood by Automated count ID Date Data Source [id number] 02/28/2019 12:17:00 PM [facility] Value Range Interpretation Description Data Sup porting Code Source(s) Document(s ) Erythrocyte 18.8 % [facility] Hospital width [Ratio] by Automated count ID Date Data Source [id number] 02/28/2019 12:17:00 PM [facility] Value Range Interpretation Description Data Sup porting Code Source(s) Document(s ) Erythrocyte mean 34.7 [place] corpuscular g/dL Hospital hemoglobin concentration [Mass/volume] by Automated count ID Date Data Source [id number] 02/28/2019 12:17:00 PM [facility] Value Range Interpretation Description Data Sup porting Code Source(s) Document(s ) Erythrocyte 30.1 pg [facility] corpuscular hemoglobin [Entitic mass] by Automated count ID Date Data Source [id number] 02/28/2019 12:17:00 PM [facility] Value Range Interpretation Description Data Sup porting Code Source(s) Document(s ) Erythrocyte 86.6 fL [facility] corpuscular volume [Entitic volume] by Automated count ID Date Data Source [id number] 02/28/2019 12:17:00 PM [facility] Value Range Interpretation Description Data Sup porting Code Source(s) Document(s ) Hematocrit 26.5 % [facility] [facility] [Volume Hospital Fraction] of Blood by Automated count ID Date Data Source [id number] 02/28/2019 12:17:00 PM [facility] Name Value Range Interpretation Description Data Sup porting Code Source(s) Document(s ) Hemoglobin 9.2 g/dL [facility] [facility] [Mass/volume] Hospital in Blood ID Date Data Source [id number] 02/28/2019 12:17:00 PM [facility] Name Value Range Interpretation Description Data Sup porting Code Source(s) Document(s ) Erythrocytes 3.06 [place] [#/volume] in 10*6/uL Hospital Blood by Automated count ID Date Data Source [id number] 02/28/2019 12:17:00 PM [facility] Name Value Range Interpretation Description Data Sup porting Code Source(s) Document(s ) Leukocytes 9.1 [place] [#/volume] in 10*3/uL Hospital Blood by Automated count ID Date Data Source [id number] 02/28/2019 12:17:00 PM [facility] TEST PERFORMED BY [employer] ULTRA SENSITIVE [facility] CHEMILUMINESCENCE METHOD. Name Value Range Interpretation Description Data Sup porting Code Source(s) Document(s ) Troponin < 0.01 [place] [facility] I.cardiac ng/mL Hospital [Mass/volume ] in Serum or Plasma ID Date Data Source [id number] 02/28/2019 12:17:00 PM [facility] THERAPEUTIC RANGES:UNFRACTIONATED HEPARI N THERAPY: 60-90 SECONDSARGATROBAN THERAPY: 49-99 SECONDS Name Value Range Interpretation Description Data Sup porting Code Source(s) Document(s ) aPTT in 35.4 s [place] Platelet poor [facility] plasma by Coagulation assay ID Date Data Source [id number] 02/28/2019 12:17:00 PM [facility] THERAPEUTIC RANGE FOR STANDARD ORALANTIC OAGULANT THERAPY: 2.0-3.0THERAPEUTIC RANGE FOR HIGH DOSE ORALANTICOAGULANT THERAPY (MECHANICAL HEARTVALVE REPLACEMENT): 2.5-3.5 Name Value Range Interpretation Description Data Sup porting Code Source(s) Document(s ) INR in Platelet 1.1 [facility] [facility] poor plasma by Hospital Coagulation assay ID Date Data Source [id number] 02/28/2019 12:17:00 PM [facility] Name Value Range Interpretation Description Data Sup porting Code Source(s) Document(s ) PT panel - 12.2 s [place] Platelet poor [facility] plasma by Coagulation assay ID Date Data Source [id number] 02/28/2019 12:17:00 PM [facility] Name Value Range Interpretation Code Description Data Supporting Source(s) Document(s ) Immature 36.1 % [facility] reticulocytes Hospital /Reticulocyte s.total in Blood ID Date Data Source [id number] 02/18/2019 04:02:00 AM [facility] Name Value Range Interpretation Description Data Sup porting Code Source(s) Document(s ) Aspartate 52 U/L [facility] aminotransferase [place] [Enzymatic Hospital activity/volume] in Serum or Plasma ID Date Data Source [id number] 02/18/2019 04:02:00 AM [facility] Name Value Range Interpretation Description Data Sup porting Code Source(s) Document(s ) Alanine 18 U/L [facility] aminotransferase [place] [Enzymatic Hospital activity/volume] in Serum or Plasma ID Date Data Source [id number] 02/18/2019 04:02:00 AM [facility] Name Value Range Interpretation Description Data Sup porting Code Source(s) Document(s ) Alkaline 200 U/L [facility] [facility] phosphatase Hospital [Enzymatic activity/volume ] in Serum or Plasma ID Date Data Source [id number] 02/18/2019 04:02:00 AM EST [facility] Name Value Range Interpretation Description Data Sup porting Code Source(s) Document(s ) Bilirubin.t 2.2 mg/dL [facility] [Mass/volum e] in Serum or Plasma ID Date Data Source [id number] 02/18/2019 04:02:00 AM EST [facility] Name Value Range Interpretation Code Description Data Isabel rce(s) Supporting Document(s ) [facility] in Serum or Plasma ID Date Data Source [id number] 02/18/2019 04:02:00 AM EST [facility] Name Value Range Interpretation Description Data Sup porting Code Source(s) Document(s ) Albumin 3.3 g/dL [place] [Mass/volume Hospital ] in Serum or Plasma ID Date Data Source [id number] 02/18/2019 04:02:00 AM [facility] Name Value Range Interpretation Description Data Sup porting Code Source(s) Document(s ) Protein 7.7 g/dL [place] [Mass/volume Hospital ] in Serum or Plasma ID Date Data Source [id number] 02/18/2019 04:02:00 AM EST [facility] Name Value Range Interpretation Description Data Sup porting Code Source(s) Document(s ) Calcium 8.6 mg/dL [facility] [Mass/volume Hospital ] in Serum or Plasma ID Date Data Source [id number] 02/18/2019 04:02:00 AM EST [facility] Name Value Range Interpretation Code Description Data Isabel rce(s) Supporting Document(s ) Urea 27.5 [place] [facility] nitrogen/Cre Hospital atinine [Mass Ratio] in Serum or Plasma ID Date Data Source [id number] 02/18/2019 04:02:00 AM [facility] Name Value Range Interpretation Description Data Sup porting Code Source(s) Document(s ) Creatinine 0.4 mg/dL [place] [Mass/volume] Hospital in Serum or Plasma ID Date Data Source [id number] 02/18/2019 04:02:00 AM [facility] Name Value Range Interpretation Description Data Sup porting Code Source(s) Document(s ) Urea 11 mg/dL [facility] nitrogen Hospital [Mass/volume ] in Serum or Plasma ID Date Data Source [id number] 02/18/2019 04:02:00 AM [facility] Name Value Range Interpretation Code Description Data Isabel rce(s) Supporting Document(s ) Anion gap in 11 [facility] [facility] Serum or Hospital Plasma ID Date Data Source [id number] 02/18/2019 04:02:00 AM [facility] Name Value Range Interpretation Description Data Sup porting Code Source(s) Document(s ) Carbon 27 mmol/L [place] dioxide, Hospital total [Moles/volu me] in Serum or Plasma ID Date Data Source [id number] 02/18/2019 04:02:00 AM [facility] Name Value Range Interpretation Description Data Sup porting Code Source(s) Document(s ) Chloride 105 [place] [Moles/volum mmol/L Hospital e] in Serum or Plasma ID Date Data Source [id number] 02/18/2019 04:02:00 AM [facility] Name Value Range Interpretation Description Data Sup porting Code Source(s) Document(s ) Potassium 3.9 [place] [Moles/volume mmol/L Hospital ] in Serum or Plasma ID Date Data Source [id number] 02/18/2019 04:02:00 AM EST [facility] Name Value Range Interpretation Description Data Sup porting Code Source(s) Document(s ) Sodium 139 mmol/L [facility] [facility] [Moles/volu Hospital fl] in Serum or Plasma ID Date Data Source [id number] 02/18/2019 04:02:00 AM EST [facility] Value Range Interpretation Description Data Sup porting Code Source(s) Document(s ) Glucose 112 mg/dL [place] [Mass/volume Hospital ] in Serum or Plasma ID Date Data Source [id number] 02/18/2019 04:02:00 AM EST [facility] Value Range Interpretation Code Description Data Supporting Source(s) Document(s ) Immature 25.1 % [facility] [facility] reticulocytes Hospital /Reticulocyte s.total in Blood ID Date Data Source [id number] 02/18/2019 04:02:00 AM EST [facility] Value Range Interpretation Description Data Sup porting Code Source(s) Document(s ) Reticulocytes 0.13 [place] [#/volume] in 10*6/uL Hospital Blood by Automated count ID Date Data Source [id number] 02/18/2019 04:02:00 AM EST [facility] Value Range Interpretation Description Data Sup porting Code Source(s) Document(s ) Reticulocytes/10 4.24 % [place] 0 erythrocytes Hospital in Blood by Automated count ID Date Data Source [id number] 02/18/2019 04:02:00 AM EST [facility] Value Range Interpretation Code Description Data Supporting Source(s) Document(s ) NUCLEATED RBCS 0.3 % [place] (AUTO Hospital DIFF%)DIS ID Date Data Source [id number] 02/18/2019 04:02:00 AM EST [facility] Value Range Interpretation Description Data Sup porting Code Source(s) Document(s ) Differential AUTOMATED [place] cell count [facility] method - Blood ID Date Data Source [id number] 02/18/2019 04:02:00 AM EST [facility] Name Value Range Interpretation Description Data Sup porting Code Source(s) Document(s ) Immature 0.02 [place] granulocytes 10*3/uL Hospital [#/volume] in Blood by Automated count ID Date Data Source [id number] 02/18/2019 04:02:00 AM EST [facility] Name Value Range Interpretation Description Data Sup porting Code Source(s) Document(s ) Basophils 0.05 [place] [#/volume] in 10*3/uL Hospital Blood by Automated count ID Date Data Source [id number] 02/18/2019 04:02:00 AM [facility] Value Range Interpretation Description Data Sup porting Code Source(s) Document(s ) Eosinophils 0.11 [place] [#/volume] in 10*3/uL Hospital Blood by Automated count ID Date Data Source [id number] 02/18/2019 04:02:00 AM [facility] Value Range Interpretation Description Data Sup porting Code Source(s) Document(s ) Monocytes 1.21 [place] [#/volume] in 10*3/uL Hospital Blood by Automated count ID Date Data Source [id number] 02/18/2019 04:02:00 AM [facility] Name Value Range Interpretation Description Data Sup porting Code Source(s) Document(s ) Lymphocytes 1.94 [place] [#/volume] in 10*3/uL Hospital Blood by Automated count ID Date Data Source [id number] 02/18/2019 04:02:00 AM EST [facility] Name Value Range Interpretation Description Data Sup porting Code Source(s) Document(s ) Neutrophils 4.00 [place] [#/volume] in 10*3/uL Hospital Blood by Automated count ID Date Data Source [id number] 02/18/2019 04:02:00 AM [facility] Value Range Interpretation Description Data Sup porting Code Source(s) Document(s ) Nucleated 0.3 % [place] erythrocytes/10 Hospital 0 leukocytes [Ratio] in Blood by Automated count ID Date Data Source [id number] 02/18/2019 04:02:00 AM [facility] Value Range Interpretation Description Data Sup porting Code Source(s) Document(s ) Immature 0.3 % [place] granulocytes/10 Hospital 0 leukocytes in Blood by Automated count ID Date Data Source [id number] 02/18/2019 04:02:00 AM [facility] Value Range Interpretation Description Data Sup porting Code Source(s) Document(s ) Basophils/100 0.7 % [place] leukocytes in Hospital Blood by Automated count ID Date Data Source [id number] 02/18/2019 04:02:00 AM [facility] Value Range Interpretation Description Data Sup porting Code Source(s) Document(s ) Eosinophils/100 1.5 % [place] leukocytes in [facility] Blood by Automated count ID Date Data Source [id number] 02/18/2019 04:02:00 AM [facility] Value Range Interpretation Description Data Sup porting Code Source(s) Document(s ) Monocytes/100 16.5 % [place] leukocytes in Hospital Blood by Automated count ID Date Data Source [id number] 02/18/2019 04:02:00 AM [facility] Value Range Interpretation Description Data Sup porting Code Source(s) Document(s ) Lymphocytes/10 26.5 % [place] 0 leukocytes Hospital in Blood by Automated count ID Date Data Source [id number] 02/18/2019 04:02:00 AM [facility] Name Value Range Interpretation Description Data Sup porting Code Source(s) Document(s ) Neutrophils/10 54.5 % [place] 0 leukocytes Hospital in Blood by Automated count ID Date Data Source [id number] 02/18/2019 04:02:00 AM [facility] Name Value Range Interpretation Description Data Sup porting Code Source(s) Document(s ) Platelet mean 10.3 fL [place] volume Hospital [Entitic volume] in Blood by Automated count ID Date Data Source [id number] 02/18/2019 04:02:00 AM [facility] Value Range Interpretation Description Data Sup porting Code Source(s) Document(s ) Platelets 295 [place] [#/volume] in 10*3/uL Hospital Blood by Automated count ID Date Data Source [id number] 02/18/2019 04:02:00 AM [facility] Name Value Range Interpretation Description Data Sup porting Code Source(s) Document(s ) Erythrocyte 18.3 % [facility] Hospital width [Ratio] by Automated count ID Date Data Source [id number] 02/18/2019 04:02:00 AM [facility] Value Range Interpretation Description Data Sup porting Code Source(s) Document(s ) Erythrocyte mean 34.8 [place] corpuscular g/dL Hospital hemoglobin concentration [Mass/volume] by Automated count ID Date Data Source [id number] 02/18/2019 04:02:00 AM [facility] Name Value Range Interpretation Description Data Sup porting Code Source(s) Document(s ) Erythrocyte 30.2 pg [facility] corpuscular hemoglobin [Entitic mass] by Automated count ID Date Data Source [id number] 02/18/2019 04:02:00 AM [facility] Name Value Range Interpretation Description Data Sup porting Code Source(s) Document(s ) Erythrocyte 86.6 fL [place] mean Hospital corpuscular volume [Entitic volume] by Automated count ID Date Data Source [id number] 02/18/2019 04:02:00 AM [facility] Value Range Interpretation Description Data Sup porting Code Source(s) Document(s ) Hematocrit 26.4 % [place] [Volume Hospital Fraction] of Blood by Automated count ID Date Data Source [id number] 02/18/2019 04:02:00 AM [facility] Value Range Interpretation Description Data Sup porting Code Source(s) Document(s ) Hemoglobin 9.2 g/dL [place] [Mass/volume] Hospital in Blood ID Date Data Source [id number] 02/18/2019 04:02:00 AM [facility] Value Range Interpretation Description Data Sup porting Code Source(s) Document(s ) Erythrocytes 3.05 [place] [#/volume] in 10*6/uL Hospital Blood by Automated count ID Date Data Source [id number] 02/18/2019 04:02:00 AM [facility] Value Range Interpretation Description Data Sup porting Code Source(s) Document(s ) Leukocytes 7.3 [place] [#/volume] in 10*3/uL Hospital Blood by Automated count ID Date Data Source [id number] 02/12/2019 02:34:00 PM [facility] Value Range Interpretation Description Data Sup porting Code Source(s) Document(s ) Calcium 8.9 mg/dL [place] [Mass/volume Hospital ] in Serum or Plasma ID Date Data Source [id number] 02/12/2019 02:34:00 PM EST [facility] Name Value Range Interpretation Code Description Data Isabel rce(s) Supporting Document(s ) Urea 20.0 [place] nitrogen/Cre Hospital atinine [Mass Ratio] in Serum or Plasma ID Date Data Source [id number] 02/12/2019 02:34:00 PM EST [facility] Name Value Range Interpretation Description Data Sup porting Code Source(s) Document(s ) Creatinine 0.6 mg/dL [place] [Mass/volume] Hospital in Serum or Plasma ID Date Data Source [id number] 02/12/2019 02:34:00 PM EST [facility] Value Range Interpretation Description Data Sup porting Code Source(s) Document(s ) Urea 12 mg/dL [place] nitrogen Hospital [Mass/volume ] in Serum or Plasma ID Date Data Source [id number] 02/12/2019 02:34:00 PM EST [facility] Value Range Interpretation Code Description Data Isabel rce(s) Supporting Document(s ) Anion gap in 9 [place] Serum or [facility] Plasma ID Date Data Source [id number] 02/12/2019 02:34:00 PM [facility] Value Range Interpretation Description Data Sup porting Code Source(s) Document(s ) Carbon 29 mmol/L [place] dioxide, Hospital total [Moles/volu me] in Serum or Plasma ID Date Data Source [id number] 02/12/2019 02:34:00 PM [facility] Name Value Range Interpretation Description Data Sup porting Code Source(s) Document(s ) Chloride 105 [place] [Moles/volum mmol/L Hospital e] in Serum or Plasma ID Date Data Source [id number] 02/12/2019 02:34:00 PM EST [facility] Value Range Interpretation Description Data Sup porting Code Source(s) Document(s ) Potassium 4.3 [place] [Moles/volume mmol/L Hospital ] in Serum or Plasma ID Date Data Source [id number] 02/12/2019 02:34:00 PM EST [facility] Name Value Range Interpretation Description Data Sup porting Code Source(s) Document(s ) Sodium 139 mmol/L [place] [Moles/volu Hospital fl] in Serum or Plasma ID Date Data Source [id number] 02/12/2019 02:34:00 PM EST [facility] Name Value Range Interpretation Description Data Sup porting Code Source(s) Document(s ) Glucose 101 mg/dL [place] [Mass/volume Hospital ] in Serum or Plasma ID Date Data Source [id number] 02/12/2019 02:34:00 PM EST [facility] Value Range Interpretation Code Description Data Supporting Source(s) Document(s ) Immature 32.7 % [place] reticulocytes Hospital /Reticulocyte s.total in Blood ID Date Data Source [id number] 02/12/2019 02:34:00 PM [facility] Value Range Interpretation Description Data Sup porting Code Source(s) Document(s ) Reticulocytes 0.22 [place] [#/volume] in 10*6/uL Hospital Blood by Automated count ID Date Data Source [id number] 02/12/2019 02:34:00 PM [facility] Value Range Interpretation Description Data Sup porting Code Source(s) Document(s ) Reticulocytes/10 6.97 % [place] 0 erythrocytes Hospital in Blood by Automated count ID Date Data Source [id number] 02/12/2019 02:34:00 PM [facility] Value Range Interpretation Code Description Data Supporting Source(s) Document(s ) NUCLEATED RBCS 1.0 % [place] (AUTO Hospital DIFF%)DIS ID Date Data Source [id number] 02/12/2019 02:34:00 PM [facility] Name Value Range Interpretation Description Data Sup porting Code Source(s) Document(s ) Differential AUTOMATED [place] cell count [facility] method - Blood ID Date Data Source [id number] 02/12/2019 02:34:00 PM [facility] Name Value Range Interpretation Description Data Sup porting Code Source(s) Document(s ) Immature 0.01 [place] granulocytes 10*3/uL Hospital [#/volume] in Blood by Automated count ID Date Data Source [id number] 02/12/2019 02:34:00 PM [facility] Name Value Range Interpretation Description Data Sup porting Code Source(s) Document(s ) Basophils 0.05 [place] [#/volume] in 10*3/uL Hospital Blood by Automated count ID Date Data Source [id number] 02/12/2019 02:34:00 PM [facility] Name Value Range Interpretation Description Data Sup porting Code Source(s) Document(s ) Eosinophils 0.13 [place] [#/volume] in 10*3/uL Hospital Blood by Automated count ID Date Data Source [id number] 02/12/2019 02:34:00 PM [facility] Name Value Range Interpretation Description Data Sup porting Code Source(s) Document(s ) Monocytes 1.05 [place] [#/volume] in 10*3/uL Hospital Blood by Automated count ID Date Data Source [id number] 02/12/2019 02:34:00 PM [facility] Name Value Range Interpretation Description Data Sup porting Code Source(s) Document(s ) Lymphocytes 1.84 [place] [#/volume] in 10*3/uL Hospital Blood by Automated count ID Date Data Source [id number] 02/12/2019 02:34:00 PM EST [facility] Name Value Range Interpretation Description Data Sup porting Code Source(s) Document(s ) Neutrophils 3.15 [place] [#/volume] in 10*3/uL Hospital Blood by Automated count ID Date Data Source [id number] 02/12/2019 02:34:00 PM EST [facility] Name Value Range Interpretation Description Data Sup porting Code Source(s) Document(s ) Nucleated 1.0 % [place] erythrocytes/10 Hospital 0 leukocytes [Ratio] in Blood by Automated count ID Date Data Source [id number] 02/12/2019 02:34:00 PM EST [facility] Value Range Interpretation Description Data Sup porting Code Source(s) Document(s ) Immature 0.2 % [place] granulocytes/10 Hospital 0 leukocytes in Blood by Automated count ID Date Data Source [id number] 02/12/2019 02:34:00 PM EST [facility] Name Value Range Interpretation Description Data Sup porting Code Source(s) Document(s ) Basophils/100 0.8 % [place] leukocytes in Hospital Blood by Automated count ID Date Data Source [id number] 02/12/2019 02:34:00 PM EST [facility] Name Value Range Interpretation Description Data Sup porting Code Source(s) Document(s ) Eosinophils/100 2.1 % [place] leukocytes in Hospital Blood by Automated count ID Date Data Source [id number] 02/12/2019 02:34:00 PM EST [facility] Value Range Interpretation Description Data Sup porting Code Source(s) Document(s ) Monocytes/100 16.9 % [place] leukocytes in Hospital Blood by Automated count ID Date Data Source [id number] 02/12/2019 02:34:00 PM EST [facility] Name Value Range Interpretation Description Data Sup porting Code Source(s) Document(s ) Lymphocytes/10 29.5 % [place] 0 leukocytes Hospital in Blood by Automated count ID Date Data Source [id number] 02/12/2019 02:34:00 PM EST [facility] Name Value Range Interpretation Description Data Sup porting Code Source(s) Document(s ) Neutrophils/10 50.5 % [place] 0 leukocytes Hospital in Blood by Automated count ID Date Data Source [id number] 02/12/2019 02:34:00 PM EST [facility] Name Value Range Interpretation Description Data Sup porting Code Source(s) Document(s ) Platelet mean 9.7 fL [place] volume Hospital [Entitic volume] in Blood by Automated count ID Date Data Source [id number] 02/12/2019 02:34:00 PM EST [facility] Name Value Range Interpretation Description Data Sup porting Code Source(s) Document(s ) Platelets 406 [place] [#/volume] in 10*3/uL Hospital Blood by Automated count ID Date Data Source [id number] 02/12/2019 02:34:00 PM [facility] Value Range Interpretation Description Data Sup porting Code Source(s) Document(s ) Erythrocyte 18.8 % [place] distribution Hospital width [Ratio] by Automated count ID Date Data Source [id number] 02/12/2019 02:34:00 PM [facility] Name Value Range Interpretation Description Data Sup porting Code Source(s) Document(s ) Erythrocyte mean 36.4 [place] corpuscular g/dL Hospital hemoglobin concentration [Mass/volume] by Automated count ID Date Data Source [id number] 02/12/2019 02:34:00 PM EST [facility] Name Value Range Interpretation Description Data Sup porting Code Source(s) Document(s ) Erythrocyte 30.3 pg [facility] Hospital corpuscular hemoglobin [Entitic mass] by Automated count ID Date Data Source [id number] 02/12/2019 02:34:00 PM [facility] Name Value Range Interpretation Description Data Sup porting Code Source(s) Document(s ) Erythrocyte 83.1 fL [facility] Hospital corpuscular volume [Entitic volume] by Automated count ID Date Data Source [id number] 02/12/2019 02:34:00 PM [facility] Name Value Range Interpretation Description Data Sup porting Code Source(s) Document(s ) Hematocrit 26.1 % [place] [Volume Hospital Fraction] of Blood by Automated count ID Date Data Source [id number] 02/12/2019 02:34:00 PM [facility] Name Value Range Interpretation Description Data Sup porting Code Source(s) Document(s ) Hemoglobin 9.5 g/dL [place] [Mass/volume] Hospital in Blood ID Date Data Source [id number] 02/12/2019 02:34:00 PM [facility] Name Value Range Interpretation Description Data Sup porting Code Source(s) Document(s ) Erythrocytes 3.14 [place] [#/volume] in 10*6/uL Hospital Blood by Automated count ID Date Data Source [id number] 02/12/2019 02:34:00 PM [facility] Name Value Range Interpretation Description Data Sup porting Code Source(s) Document(s ) Leukocytes 6.2 [place] [#/volume] in 10*3/uL Hospital Blood by Automated count ID Date Data Source [id number] 02/02/2019 06:38:00 AM [facility] UNITS ARE IN ml/min/1.73m2.IF PATIENT IS -SRI LANKAN, MULTIPLY REPORTED RESULT BY 1.21. Name Value Range Interpretation Description Data Sup porting Code Source(s) Document(s ) Glomerular > 60 [place] filtration mL/min Hospital rate/1.73 sq M.predicted [Volume Rate/Area] in Serum or Plasma by Creatinine-bas ed formula (MDRD) ID Date Data Source [id number] 02/02/2019 06:38:00 AM [facility] Name Value Range Interpretation Description Data Sup porting Code Source(s) Document(s ) Aspartate 37 U/L [facility] amin[facility] [place] [Enzymatic Hospital activity/volume] in Serum or Plasma ID Date Data Source [id number] 02/02/2019 06:38:00 AM [facility] Name Value Range Interpretation Description Data Sup porting Code Source(s) Document(s ) Alanine 22 U/L [facility] amin[facility] [place] [Enzymatic Hospital activity/volume] in Serum or Plasma ID Date Data Source [id number] 02/02/2019 06:38:00 AM [facility] Name Value Range Interpretation Description Data Sup porting Code Source(s) Document(s ) Alkaline 250 U/L [place] phosphatase Hospital [Enzymatic activity/volume ] in Serum or Plasma ID Date Data Source [id number] 02/02/2019 06:38:00 AM [facility] Name Value Range Interpretation Description Data Sup porting Code Source(s) Document(s ) Bilirubin.t 3.0 mg/dL [facility] [Mass/volum e] in Serum or Plasma ID Date Data Source [id number] 02/02/2019 06:38:00 AM [facility] Name Value Range Interpretation Code Description Data Isabel rce(s) Supporting Document(s ) Albumin/Glob 0.8 [place] ulin [Mass Hospital Ratio] in Serum or Plasma ID Date Data Source [id number] 02/02/2019 06:38:00 AM EST [facility] Name Value Range Interpretation Description Data Sup porting Code Source(s) Document(s ) Albumin 3.3 g/dL [place] [Mass/volume Hospital ] in Serum or Plasma ID Date Data Source [id number] 02/02/2019 06:38:00 AM [facility] Name Value Range Interpretation Description Data Sup porting Code Source(s) Document(s ) Protein 7.2 g/dL [place] [Mass/volume Hospital ] in Serum or Plasma ID Date Data Source [id number] 02/02/2019 06:38:00 AM [facility] UNITS ARE IN ml/min/1.73m2.IF PATIENT IS -SRI [place], MULTIPLY REPORTED RESULT BY 1.21. Name Value Range Interpretation Description Data Sup porting Code Source(s) Document(s ) Glomerular > 60 [place] filtration mL/min Hospital rate/1.73 sq M.predicted [Volume Rate/Area] in Serum or Plasma by Creatinine-bas ed formula (MDRD) ID Date Data Source [id number] 02/02/2019 06:38:00 AM [facility] Name Value Range Interpretation Description Data Sup porting Code Source(s) Document(s ) Aspartate 37 U/L [facility] aminotransferase [place] [Enzymatic Hospital activity/volume] in Serum or Plasma ID Date Data Source [id number] 02/02/2019 06:38:00 AM [facility] Name Value Range Interpretation Description Data Sup porting Code Source(s) Document(s ) Alanine 22 U/L [facility] aminotransferase [place] [Enzymatic Hospital activity/volume] in Serum or Plasma ID Date Data Source [id number] 02/02/2019 06:38:00 AM [facility] Name Value Range Interpretation Description Data Sup porting Code Source(s) Document(s ) Alkaline 250 U/L [place] phosphatase Hospital [Enzymatic activity/volume ] in Serum or Plasma ID Date Data Source [id number] 02/02/2019 06:38:00 AM [facility] Name Value Range Interpretation Description Data Sup porting Code Source(s) Document(s ) Bilirubin.t 3.0 mg/dL [facility] [Mass/volum e] in Serum or Plasma ID Date Data Source [id number] 02/02/2019 06:38:00 AM [facility] Name Value Range Interpretation Code Description Data Isabel rce(s) Supporting Document(s ) [facility] in Serum or Plasma ID Date Data Source [id number] 02/02/2019 06:38:00 AM [facility] Value Range Interpretation Description Data Sup porting Code Source(s) Document(s ) Albumin 3.3 g/dL [place] [Mass/volume Hospital ] in Serum or Plasma ID Date Data Source [id number] 02/02/2019 06:38:00 AM [facility] Name Value Range Interpretation Description Data Sup porting Code Source(s) Document(s ) Protein 7.2 g/dL [place] [Mass/volume Hospital ] in Serum or Plasma ID Date Data Source [id number] 02/02/2019 06:38:00 AM [facility] Name Value Range Interpretation Description Data Sup porting Code Source(s) Document(s ) Calcium 8.1 mg/dL [place] [Mass/volume Hospital ] in Serum or Plasma ID Date Data Source [id number] 02/02/2019 06:38:00 AM [facility] UNITS ARE IN ml/min/1.73m2.IF PATIENT IS -SRI [place], MULTIPLY REPORTED RESULT BY 1.21. Name Value Range Interpretation Description Data Sup porting Code Source(s) Document(s ) Glomerular > 60 [place] filtration mL/min Hospital rate/1.73 sq M.predicted [Volume Rate/Area] in Serum or Plasma by Creatinine-bas ed formula (MDRD) ID Date Data Source [id number] 02/02/2019 06:38:00 AM [facility] Name Value Range Interpretation Code Description Data Isabel rce(s) Supporting Document(s ) Urea 15.0 [place] nitrogen/Cre Hospital atinine [Mass Ratio] in Serum or Plasma ID Date Data Source [id number] 02/02/2019 06:38:00 AM [facility] Value Range Interpretation Description Data Sup porting Code Source(s) Document(s ) Creatinine 0.4 mg/dL [place] [Mass/volume] Hospital in Serum or Plasma ID Date Data Source [id number] 02/02/2019 06:38:00 AM [facility] Value Range Interpretation Description Data Sup porting Code Source(s) Document(s ) Urea nitrogen 6 mg/dL [place] [Mass/volume] Hospital in Serum or Plasma ID Date Data Source [id number] 02/02/2019 06:38:00 AM [facility] Value Range Interpretation Code Description Data Isabel rce(s) Supporting Document(s ) Anion gap in 15 [place] Serum or [facility] Plasma ID Date Data Source [id number] 02/02/2019 06:38:00 AM [facility] Name Value Range Interpretation Description Data Sup porting Code Source(s) Document(s ) Carbon 33 mmol/L [place] dioxide, Hospital total [Moles/volu me] in Serum or Plasma ID Date Data Source [id number] 02/02/2019 06:38:00 AM [facility] Name Value Range Interpretation Description Data Sup porting Code Source(s) Document(s ) Chloride 97 mmol/L [place] [Moles/volum Hospital e] in Serum or Plasma ID Date Data Source [id number] 02/02/2019 06:38:00 AM EST [facility] Name Value Range Interpretation Description Data Sup porting Code Source(s) Document(s ) Potassium 4.5 [place] [Moles/volume mmol/L Hospital ] in Serum or Plasma ID Date Data Source [id number] 02/02/2019 06:38:00 AM EST [facility] Name Value Range Interpretation Description Data Sup porting Code Source(s) Document(s ) Sodium 140 mmol/L [place] [Moles/volu Hospital fl] in Serum or Plasma ID Date Data Source [id number] 02/02/2019 06:38:00 AM [facility] Value Range Interpretation Description Data Sup porting Code Source(s) Document(s ) Glucose 118 mg/dL [place] [Mass/volume Hospital ] in Serum or Plasma ID Date Data Source [id number] 02/02/2019 06:38:00 AM EST [facility] Name Value Range Interpretation Description Data Sup porting Code Source(s) Document(s ) NUCLEATED RBCS 20.6 % [place] (AUTO Hospital DIFF%)DIS ID Date Data Source [id number] 02/02/2019 06:38:00 AM [facility] Value Range Interpretation Description Data Sup porting Code Source(s) Document(s ) Differential AUTOMATED [place] cell count Hospital method - Blood ID Date Data Source [id number] 02/02/2019 06:38:00 AM [facility] Name Value Range Interpretation Description Data Sup porting Code Source(s) Document(s ) Immature 0.09 [place] granulocytes 10*3/uL Hospital [#/volume] in Blood by Automated count ID Date Data Source [id number] 02/02/2019 06:38:00 AM EST [facility] Name Value Range Interpretation Description Data Sup porting Code Source(s) Document(s ) Basophils 0.04 [place] [#/volume] in 10*3/uL Hospital Blood by Automated count ID Date Data Source [id number] 02/02/2019 06:38:00 AM [facility] Name Value Range Interpretation Description Data Sup porting Code Source(s) Document(s ) Eosinophils 0.15 [place] [#/volume] in 10*3/uL Hospital Blood by Automated count ID Date Data Source [id number] 02/02/2019 06:38:00 AM [facility] Value Range Interpretation Description Data Sup porting Code Source(s) Document(s ) Monocytes 0.81 [place] [#/volume] in 10*3/uL Hospital Blood by Automated count ID Date Data Source [id number] 02/02/2019 06:38:00 AM [facility] Value Range Interpretation Description Data Sup porting Code Source(s) Document(s ) Lymphocytes 1.46 [place] [#/volume] in 10*3/uL Hospital Blood by Automated count ID Date Data Source [id number] 02/02/2019 06:38:00 AM [facility] Value Range Interpretation Description Data Sup porting Code Source(s) Document(s ) Neutrophils 6.34 [place] [#/volume] in 10*3/uL Hospital Blood by Automated count ID Date Data Source [id number] 02/02/2019 06:38:00 AM [facility] Name Value Range Interpretation Description Data Sup porting Code Source(s) Document(s ) Nucleated 20.6 % [facility] [facility] erythrocytes/1 Hospital 00 leukocytes [Ratio] in Blood by Automated count ID Date Data Source [id number] 02/02/2019 06:38:00 AM EST [facility] Name Value Range Interpretation Description Data Sup porting Code Source(s) Document(s ) Immature 1.0 % [facility] granulocytes/10 Hospital 0 leukocytes in Blood by Automated count ID Date Data Source [id number] 02/02/2019 06:38:00 AM EST [facility] Name Value Range Interpretation Description Data Sup porting Code Source(s) Document(s ) Basophils/100 0.4 % [facility] leukocytes in Hospital Blood by Automated count ID Date Data Source [id number] 02/02/2019 06:38:00 AM EST [facility] Name Value Range Interpretation Description Data Sup porting Code Source(s) Document(s ) Eosinophils/100 1.7 % [facility] leukocytes in Hospital Blood by Automated count ID Date Data Source [id number] 02/02/2019 06:38:00 AM EST [facility] Name Value Range Interpretation Description Data Sup porting Code Source(s) Document(s ) Monocytes/100 9.1 % [facility] [facility] leukocytes in Hospital Blood by Automated count ID Date Data Source [id number] 02/02/2019 06:38:00 AM EST [facility] Name Value Range Interpretation Description Data Sup porting Code Source(s) Document(s ) Lymphocytes/10 16.4 % [facility] 0 leukocytes Hospital in Blood by Automated count ID Date Data Source [id number] 02/02/2019 06:38:00 AM EST [facility] Name Value Range Interpretation Description Data Sup porting Code Source(s) Document(s ) Neutrophils/10 71.4 % [facility] 0 leukocytes Hospital in Blood by Automated count ID Date Data Source [id number] 02/02/2019 06:38:00 AM EST [facility] Name Value Range Interpretation Description Data Sup porting Code Source(s) Document(s ) Platelet mean 10.6 fL [facility] volume Hospital [Entitic volume] in Blood by Automated count ID Date Data Source [id number] 02/02/2019 06:38:00 AM [facility] Value Range Interpretation Description Data Sup porting Code Source(s) Document(s ) Platelets 378 [place] [#/volume] in 10*3/uL Hospital Blood by Automated count ID Date Data Source [id number] 02/02/2019 06:38:00 AM [facility] Value Range Interpretation Description Data Sup porting Code Source(s) Document(s ) Erythrocyte 24.6 % [facility] [facility] distribution Hospital width [Ratio] by Automated count ID Date Data Source [id number] 02/02/2019 06:38:00 AM [facility] Value Range Interpretation Description Data Sup porting Code Source(s) Document(s ) Erythrocyte mean 34.4 [facility] corpuscular g/dL Hospital hemoglobin concentration [Mass/volume] by Automated count ID Date Data Source [id number] 02/02/2019 06:38:00 AM [facility] Value Range Interpretation Description Data Sup porting Code Source(s) Document(s ) Erythrocyte 30.8 pg [facility] corpuscular hemoglobin [Entitic mass] by Automated count ID Date Data Source [id number] 02/02/2019 06:38:00 AM [facility] Value Range Interpretation Description Data Sup porting Code Source(s) Document(s ) Erythrocyte 89.5 fL [facility] corpuscular volume [Entitic volume] by Automated count ID Date Data Source [id number] 02/02/2019 06:38:00 AM [facility] Value Range Interpretation Description Data Sup porting Code Source(s) Document(s ) Hematocrit 22.1 % [place] [Volume Hospital Fraction] of Blood by Automated count ID Date Data Source [id number] 02/02/2019 06:38:00 AM [facility] NOTIFICATION AND READ BACK OF CRITICAL R ESULTS TO JUS DUKES RN 5F AT 0836 ON 02/02/19 BY Jaci Maurice. Name Value Range Interpretation Description Data Sup porting Code Source(s) Document(s ) Hemoglobin 7.6 g/dL [facility] [Mass/volume] Hospital in Blood ID Date Data Source [id number] 02/02/2019 06:38:00 AM [facility] Name Value Range Interpretation Description Data Sup porting Code Source(s) Document(s ) Erythrocytes 2.47 [place] [#/volume] in 10*6/uL Hospital Blood by Automated count ID Date Data Source [id number] 02/02/2019 06:38:00 AM [facility] Name Value Range Interpretation Description Data Sup porting Code Source(s) Document(s ) Leukocytes 8.9 [place] [#/volume] in 10*3/uL Hospital Blood by Automated count ID Date Data Source [id number] 02/01/2019 05:47:00 AM [facility] THERAPEUTIC RANGE FOR STANDARD ORALANTIC OAGULANT THERAPY: 2.0-3.0THERAPEUTIC RANGE FOR HIGH DOSE ORALANTICOAGULANT THERAPY (MECHANICAL HEARTVALVE REPLACEMENT): 2.5-3.5 Name Value Range Interpretation Description Data Sup porting Code Source(s) Document(s ) INR in Platelet 1.1 [facility] poor plasma by Hospital Coagulation assay ID Date Data Source [id number] 02/01/2019 05:47:00 AM [facility] Name Value Range Interpretation Description Data Sup porting Code Source(s) Document(s ) PT panel - 12.8 s [place] Platelet poor [facility] plasma by Coagulation assay ID Date Data Source [id number] 02/01/2019 05:47:00 AM EST [facility] Name Value Range Interpretation Code Description Data Isabel rce(s) Supporting Document(s ) Cells 100 [facility] Hospital Total [#] in Blood ID Date Data Source [id number] 02/01/2019 05:47:00 AM EST [facility] Name Value Range Interpretation Code Description Data Supporting Source(s) Document(s ) PLATELET NORMAL [facility] [facility] COMMENT Hospital ID Date Data Source [id number] 02/01/2019 05:47:00 AM EST [facility] Name Value Range Interpretation Description Data Sup porting Code Source(s) Document(s ) PAPPENHEIMER PRESENT [facility] Hospital ID Date Data Source [id number] 02/01/2019 05:47:00 AM EST [facility] Value Range Interpretation Code Description Data Isabel rce(s) Supporting Document(s ) PERRY PRESENT [facility] BODIES ID Date Data Source [id number] 02/01/2019 05:47:00 AM [facility] Name Value Range Interpretation Code Description Data Isabel rce(s) Supporting Document(s ) SICKLE CELLS 1+ [facility] ID Date Data Source [id number] 02/01/2019 05:47:00 AM EST [facility] Name Value Range Interpretation Code Description Data Isabel rce(s) Supporting Document(s ) SCHISTOCYTES OCC [facility] ID Date Data Source [id number] 02/01/2019 05:47:00 AM EST [facility] Name Value Range Interpretation Code Description Data Isabel rce(s) Supporting Document(s ) TARGET CELLS 2+ [facility] ID Date Data Source [id number] 02/01/2019 05:47:00 AM EST [facility] Name Value Range Interpretation Code Description Data Isabel rce(s) Supporting Document(s ) TEARDROP OCC [facility] CELLS Hospital ID Date Data Source [id number] 02/01/2019 05:47:00 AM EST [facility] Name Value Range Interpretation Code Description Data Isabel rce(s) Supporting Document(s ) OVALOCYTES OCC [facility] ID Date Data Source [id number] 02/01/2019 05:47:00 AM EST [facility] Name Value Range Interpretation Description Data Sup porting Code Source(s) Document(s ) BASOPHILIC OCC [facility] STIPPLING Hospital ID Date Data Source [id number] 02/01/2019 05:47:00 AM EST [facility] Name Value Range Interpretation Code Description Data Supporting Source(s) Document(s ) POLYCHROMASIA 3+ [facility] ID Date Data Source [id number] 02/01/2019 05:47:00 AM EST [facility] Name Value Range Interpretation Code Description Data Isabel rce(s) Supporting Document(s ) HYPOCHROMIA [facility] ID Date Data Source [id number] 02/01/2019 05:47:00 AM [facility] Hospital Name Value Range Interpretation Code Description Data Isabel rce(s) Supporting Document(s ) MACROCYTOSIS 2+ [facility] ID Date Data Source [id number] 02/01/2019 05:47:00 AM EST [facility] Name Value Range Interpretation Code Description Data Isabel rce(s) Supporting Document(s ) MICROCYTOSIS [facility] Hospital ID Date Data Source [id number] 02/01/2019 05:47:00 AM EST [facility] Name Value Range Interpretation Code Description Data Isabel rce(s) Supporting Document(s ) ANISOCYTOSIS 2+ [facility] ID Date Data Source [id number] 02/01/2019 05:47:00 AM EST [facility] Name Value Range Interpretation Description Data Sup porting Code Source(s) Document(s ) Eosinophils 0.19 [place] [#/volume] in 10*3/uL Hospital Blood by Manual count ID Date Data Source [id number] 02/01/2019 05:47:00 AM EST [facility] Name Value Range Interpretation Description Data Sup porting Code Source(s) Document(s ) Monocytes 1.30 [place] [#/volume] in 10*3/uL Hospital Blood by Manual count ID Date Data Source [id number] 02/01/2019 05:47:00 AM [facility] Value Range Interpretation Description Data Sup porting Code Source(s) Document(s ) Lymphocytes 1.49 [place] [#/volume] in 10*3/uL Hospital Blood by Manual count ID Date Data Source [id number] 02/01/2019 05:47:00 AM [facility] Value Range Interpretation Description Data Sup porting Code Source(s) Document(s ) Neutrophils 6.32 [place] [#/volume] in 10*3/uL Hospital Blood by Manual count ID Date Data Source [id number] 02/01/2019 05:47:00 AM [facility] Name Value Range Interpretation Description Data Sup porting Code Source(s) Document(s ) Nucleated 27 % [place] erythrocytes/10 Hospital 0 leukocytes [Ratio] in Blood by Manual count ID Date Data Source [id number] 02/01/2019 05:47:00 AM [facility] Name Value Range Interpretation Description Data Sup porting Code Source(s) Document(s ) Eosinophils/100 2 % [place] leukocytes in Hospital Blood by Manual count ID Date Data Source [id number] 02/01/2019 05:47:00 AM [facility] Name Value Range Interpretation Description Data Sup porting Code Source(s) Document(s ) Monocytes/100 14 % [place] leukocytes in Hospital Blood by Manual count ID Date Data Source [id number] 02/01/2019 05:47:00 AM [facility] Name Value Range Interpretation Description Data Sup porting Code Source(s) Document(s ) Lymphocytes/100 16 % [place] leukocytes in Hospital Blood by Manual count ID Date Data Source [id number] 02/01/2019 05:47:00 AM [facility] Name Value Range Interpretation Description Data Sup porting Code Source(s) Document(s ) Neutrophils/100 68 % [place] leukocytes in [facility] Blood by Manual count ID Date Data Source [id number] 02/01/2019 05:47:00 AM [facility] THERAPEUTIC RANGE FOR STANDARD ORALANTIC OAGULANT THERAPY: 2.0-3.0THERAPEUTIC RANGE FOR HIGH DOSE ORALANTICOAGULANT THERAPY (MECHANICAL HEARTVALVE REPLACEMENT): 2.5-3.5 Name Value Range Interpretation Description Data Sup porting Code Source(s) Document(s ) INR in Platelet 1.1 [place] poor plasma by Hospital Coagulation assay ID Date Data Source [id number] 02/01/2019 05:47:00 AM [facility] Name Value Range Interpretation Description Data Sup porting Code Source(s) Document(s ) PT panel - 12.8 s [place] Platelet poor [facility] plasma by Coagulation assay ID Date Data Source [id number] 02/01/2019 05:47:00 AM [facility] Name Value Range Interpretation Code Description Data Isabel rce(s) Supporting Document(s ) Cells 100 [facility] Total [#] in Blood ID Date Data Source [id number] 02/01/2019 05:47:00 AM EST [facility] Name Value Range Interpretation Code Description Data Supporting Source(s) Document(s ) PLATELET NORMAL [facility] [facility] COMMENT Hospital ID Date Data Source [id number] 02/01/2019 05:47:00 AM EST [facility] Name Value Range Interpretation Description Data Sup porting Code Source(s) Document(s ) PAPPENHEIMER PRESENT [facility] Hospital ID Date Data Source [id number] 02/01/2019 05:47:00 AM EST [facility] Name Value Range Interpretation Code Description Data Isabel rce(s) Supporting Document(s ) PERRY PRESENT [facility] BODIES ID Date Data Source [id number] 02/01/2019 05:47:00 AM EST [facility] Name Value Range Interpretation Code Description Data Isabel rce(s) Supporting Document(s ) SICKLE CELLS 1+ [facility] ID Date Data Source [id number] 02/01/2019 05:47:00 AM EST [facility] Name Value Range Interpretation Code Description Data Isabel rce(s) Supporting Document(s ) SCHISTOCYTES OCC [facility] ID Date Data Source [id number] 02/01/2019 05:47:00 AM EST [facility] Name Value Range Interpretation Code Description Data Isabel rce(s) Supporting Document(s ) TARGET CELLS 2+ [facility] ID Date Data Source [id number] 02/01/2019 05:47:00 AM EST [facility] Name Value Range Interpretation Code Description Data Isabel rce(s) Supporting Document(s ) TEARDROP OCC [facility] Hospital ID Date Data Source [id number] 02/01/2019 05:47:00 AM [facility] Name Value Range Interpretation Code Description Data Isabel rce(s) Supporting Document(s ) OVALOCYTES OCC [facility] ID Date Data Source [id number] 02/01/2019 05:47:00 AM [facility] Hospital Name Value Range Interpretation Description Data Sup porting Code Source(s) Document(s ) BASOPHILIC OCC [place] STIPPLING Hospital ID Date Data Source [id number] 02/01/2019 05:47:00 AM [facility] Name Value Range Interpretation Code Description Data Supporting Source(s) Document(s ) POLYCHROMASIA 3+ [facility] ID Date Data Source [id number] 02/01/2019 05:47:00 AM [facility] Name Value Range Interpretation Code Description Data Isabel rce(s) Supporting Document(s ) HYPOCHROMIA [facility] ID Date Data Source [id number] 02/01/2019 05:47:00 AM [facility] Name Value Range Interpretation Code Description Data Isabel rce(s) Supporting Document(s ) MACROCYTOSIS 2+ [facility] ID Date Data Source [id number] 02/01/2019 05:47:00 AM [facility] Name Value Range Interpretation Code Description Data Isabel rce(s) Supporting Document(s ) MICROCYTOSIS [facility] ID Date Data Source [id number] 02/01/2019 05:47:00 AM [facility] Name Value Range Interpretation Code Description Data Isabel rce(s) Supporting Document(s ) ANISOCYTOSIS 2+ [facility] ID Date Data Source [id number] 02/01/2019 05:47:00 AM [facility] Name Value Range Interpretation Description Data Sup porting Code Source(s) Document(s ) Eosinophils 0.19 [place] [#/volume] in 10*3/uL Hospital Blood by Manual count ID Date Data Source [id number] 02/01/2019 05:47:00 AM [facility] Name Value Range Interpretation Description Data Sup porting Code Source(s) Document(s ) Monocytes 1.30 [place] [#/volume] in 10*3/uL Hospital Blood by Manual count ID Date Data Source [id number] 02/01/2019 05:47:00 AM [facility] Name Value Range Interpretation Description Data Sup porting Code Source(s) Document(s ) Lymphocytes 1.49 [place] [#/volume] in 10*3/uL Hospital Blood by Manual count ID Date Data Source [id number] 02/01/2019 05:47:00 AM [facility] Value Range Interpretation Description Data Sup porting Code Source(s) Document(s ) Neutrophils 6.32 [place] [#/volume] in 10*3/uL Hospital Blood by Manual count ID Date Data Source [id number] 02/01/2019 05:47:00 AM [facility] Value Range Interpretation Description Data Sup porting Code Source(s) Document(s ) Nucleated 27 % [place] erythrocytes/10 Hospital 0 leukocytes [Ratio] in Blood by Manual count ID Date Data Source [id number] 02/01/2019 05:47:00 AM [facility] Value Range Interpretation Description Data Sup porting Code Source(s) Document(s ) Eosinophils/100 2 % [place] leukocytes in Hospital Blood by Manual count ID Date Data Source [id number] 02/01/2019 05:47:00 AM [facility] Value Range Interpretation Description Data Sup porting Code Source(s) Document(s ) Monocytes/100 14 % [place] leukocytes in Hospital Blood by Manual count ID Date Data Source [id number] 02/01/2019 05:47:00 AM [facility] Name Value Range Interpretation Description Data Sup porting Code Source(s) Document(s ) Lymphocytes/100 16 % [place] leukocytes in Hospital Blood by Manual count ID Date Data Source [id number] 02/01/2019 05:47:00 AM [facility] Name Value Range Interpretation Description Data Sup porting Code Source(s) Document(s ) Neutrophils/100 68 % [place] leukocytes in Hospital Blood by Manual count ID Date Data Source [id number] 02/01/2019 05:47:00 AM [facility] THERAPEUTIC RANGE FOR STANDARD ORALANTIC OAGULANT THERAPY: 2.0-3.0THERAPEUTIC RANGE FOR HIGH DOSE ORALANTICOAGULANT THERAPY (MECHANICAL HEARTVALVE REPLACEMENT): 2.5-3.5 Name Value Range Interpretation Description Data Sup porting Code Source(s) Document(s ) INR in Platelet 1.1 [place] poor plasma by [facility] Coagulation assay ID Date Data Source [id number] 02/01/2019 05:47:00 AM [facility] Name Value Range Interpretation Description Data Sup porting Code Source(s) Document(s ) PT panel - 12.8 s [place] Platelet poor [facility] plasma by Coagulation assay ID Date Data Source [id number] 02/01/2019 05:47:00 AM [facility] Name Value Range Interpretation Code Description Data Isabel rce(s) Supporting Document(s ) Cells 100 [facility] Total [#] in Blood ID Date Data Source [id number] 02/01/2019 05:47:00 AM [facility] Name Value Range Interpretation Code Description Data Supporting Source(s) Document(s ) PLATELET NORMAL [facility] Hospital ID Date Data Source [id number] 02/01/2019 05:47:00 AM [facility] Name Value Range Interpretation Description Data Sup porting Code Source(s) Document(s ) PAPPENHEIMER PRESENT [facility] Hospital ID Date Data Source [id number] 02/01/2019 05:47:00 AM [facility] Name Value Range Interpretation Code Description Data Isabel rce(s) Supporting Document(s ) PERRY PRESENT [facility] BODIES ID Date Data Source [id number] 02/01/2019 05:47:00 AM [facility] Hospital Name Value Range Interpretation Code Description Data Isabel rce(s) Supporting Document(s ) SICKLE CELLS 1+ [facility] [facility] ID Date Data Source [id number] 02/01/2019 05:47:00 AM [facility] Hospital Name Value Range Interpretation Code Description Data Isabel rce(s) Supporting Document(s ) SCHISTOCYTES [facility] Hospital ID Date Data Source [id number] 02/01/2019 05:47:00 AM [facility] Hospital Name Value Range Interpretation Code Description Data Isabel rce(s) Supporting Document(s ) TARGET CELLS 2+ [facility] ID Date Data Source [id number] 02/01/2019 05:47:00 AM [facility] Hospital Name Value Range Interpretation Code Description Data Isabel rce(s) Supporting Document(s ) TEARDROP OCC [facility] Hospital ID Date Data Source [id number] 02/01/2019 05:47:00 AM [facility] Hospital Name Value Range Interpretation Code Description Data Isabel rce(s) Supporting Document(s ) OVALOCYTES OCC [facility] ID Date Data Source [id number] 02/01/2019 05:47:00 AM EST [facility] Name Value Range Interpretation Description Data Sup porting Code Source(s) Document(s ) [facility]HILIC OCC [place] [facility] Date Data Source [id number] 02/01/2019 05:47:00 AM [facility] Name Value Range Interpretation Code Description Data Supporting Source(s) Document(s ) POLYCHROMASIA 3+ [facility] ID Date Data Source [id number] 02/01/2019 05:47:00 AM [facility] Name Value Range Interpretation Code Description Data Isabel rce(s) Supporting Document(s ) HYPOCHROMIA [facility] ID Date Data Source [id number] 02/01/2019 05:47:00 AM [facility] Value Range Interpretation Code Description Data Isabel rce(s) Supporting Document(s ) MACROCYTOSIS 2+ [facility] ID Date Data Source [id number] 02/01/2019 05:47:00 AM [facility] Value Range Interpretation Code Description Data Isabel rce(s) Supporting Document(s ) MICROCYTOSIS [facility] ID Date Data Source [id number] 02/01/2019 05:47:00 AM [facility] Value Range Interpretation Code Description Data Isabel rce(s) Supporting Document(s ) ANISOCYTOSIS 2+ [facility] ID Date Data Source [id number] 02/01/2019 05:47:00 AM [facility] Value Range Interpretation Description Data Sup porting Code Source(s) Document(s ) Eosinophils 0.19 [place] [#/volume] in 10*3/uL Hospital Blood by Manual count ID Date Data Source [id number] 02/01/2019 05:47:00 AM [facility] Value Range Interpretation Description Data Sup porting Code Source(s) Document(s ) Monocytes 1.30 [place] [#/volume] in 10*3/uL Hospital Blood by Manual count ID Date Data Source [id number] 02/01/2019 05:47:00 AM [facility] Value Range Interpretation Description Data Sup porting Code Source(s) Document(s ) Lymphocytes 1.49 [place] [#/volume] in 10*3/uL Hospital Blood by Manual count ID Date Data Source [id number] 02/01/2019 05:47:00 AM [facility] Value Range Interpretation Description Data Sup porting Code Source(s) Document(s ) Neutrophils 6.32 [place] [#/volume] in 10*3/uL Hospital Blood by Manual count ID Date Data Source [id number] 02/01/2019 05:47:00 AM [facility] Value Range Interpretation Description Data Sup porting Code Source(s) Document(s ) Nucleated 27 % [place] [facility] erythrocytes/10 Hospital 0 leukocytes [Ratio] in Blood by Manual count ID Date Data Source [id number] 02/01/2019 05:47:00 AM [facility] Value Range Interpretation Description Data Sup porting Code Source(s) Document(s ) Eosinophils/100 2 % [place] leukocytes in Hospital Blood by Manual count ID Date Data Source [id number] 02/01/2019 05:47:00 AM [facility] Value Range Interpretation Description Data Sup porting Code Source(s) Document(s ) Monocytes/100 14 % [place] leukocytes in Hospital Blood by Manual count ID Date Data Source [id number] 02/01/2019 05:47:00 AM [facility] Value Range Interpretation Description Data Sup porting Code Source(s) Document(s ) Lymphocytes/100 16 % [facility] leukocytes in Hospital Blood by Manual count ID Date Data Source [id number] 02/01/2019 05:47:00 AM [facility] Name Value Range Interpretation Description Data Sup porting Code Source(s) Document(s ) Neutrophils/100 68 % [place] leukocytes in Hospital Blood by Manual count ID Date Data Source [id number] 01/30/2019 05:28:00 AM [facility] Name Value Range Interpretation Description Data Sup porting Code Source(s) Document(s ) Bilirubin.d 3.2 mg/dL [facility] [Mass/volum e] in Serum or Plasma ID Date Data Source [id number] 01/30/2019 05:28:00 AM [facility] Name Value Range Interpretation Description Data Sup porting Code Source(s) Document(s ) Bilirubin.d 3.2 mg/dL [facility] [Mass/volum e] in Serum or Plasma ID Date Data Source [id number] 01/30/2019 05:28:00 AM [facility] Name Value Range Interpretation Description Data Sup porting Code Source(s) Document(s ) Bilirubin.d 3.2 mg/dL [facility] [Mass/volum e] in Serum or Plasma ID Date Data Source [id number] 01/29/2019 05:11:00 AM [facility] Name Value Range Interpretation Code Description Data Isabel rce(s) Supporting Document(s ) Lipase 20 U/L [place] [Enzymatic Hospital activity/vo lume] in Serum or Plasma ID Date Data Source [id number] 01/29/2019 05:11:00 AM [facility] Name Value Range Interpretation Description Data Sup porting Code Source(s) Document(s ) Platelet PRESENT [facility] Hospital finding [Identifier] in Blood ID Date Data Source [id number] 01/29/2019 05:11:00 AM EST [facility] Name Value Range Interpretation Description Data Sup porting Code Source(s) Document(s ) POIKILOCYTOSIS 3+ [facility] ID Date Data Source [id number] 01/29/2019 05:11:00 AM EST [facility] Name Value Range Interpretation Code Description Data Isabel rce(s) Supporting Document(s ) Lipase 20 U/L [facility] [facility] [Enzymatic Hospital activity/vo lume] in Serum or Plasma ID Date Data Source [id number] 01/29/2019 05:11:00 AM EST [facility] Name Value Range Interpretation Description Data Sup porting Code Source(s) Document(s ) Platelet PRESENT [facility] [facility] morphology Hospital finding [Identifier] in Blood ID Date Data Source [id number] 01/29/2019 05:11:00 AM EST [facility] Name Value Range Interpretation Description Data Sup porting Code Source(s) Document(s ) POIKILOCYTOSIS 3+ [facility] ID Date Data Source [id number] 01/29/2019 05:11:00 AM EST [facility] Name Value Range Interpretation Code Description Data Isabel rce(s) Supporting Document(s ) Lipase 20 U/L [facility] [facility] [Enzymatic Hospital activity/vo lume] in Serum or Plasma ID Date Data Source [id number] 01/29/2019 05:11:00 AM EST [facility] Name Value Range Interpretation Description Data Sup porting Code Source(s) Document(s ) Platelet PRESENT [facility] [facility] morphology Hospital finding [Identifier] in Blood ID Date Data Source [id number] 01/29/2019 05:11:00 AM EST [facility] Name Value Range Interpretation Description Data Sup porting Code Source(s) Document(s ) POIKILOCYTOSIS 3+ [facility] Hospital ID Date Data Source [id number] 01/29/2019 01:48:00 AM [facility] Name Value Range Interpretation Description Data Sup porting Code Source(s) Document(s ) Erythrocytes 5-10 [place] [#/area] in /[HPF] Hospital Urine sediment by Automated count ID Date Data Source [id number] 01/29/2019 01:48:00 AM [facility] Name Value Range Interpretation Description Data Sup porting Code Source(s) Document(s ) Leukocytes 0-3 [place] [#/area] in /[HPF] Hospital Urine sediment by Automated count ID Date Data Source [id number] 01/29/2019 01:48:00 AM [facility] Name Value Range Interpretation Description Data Sup porting Code Source(s) Document(s ) Leukocyte NEGATIVE [facility] [Presence] in Urine by Test strip ID Date Data Source [id number] 01/29/2019 01:48:00 AM [facility] Name Value Range Interpretation Description Data Sup porting Code Source(s) Document(s ) URINE NEGATIVE [facility] Hospital ID Date Data Source [id number] 01/29/2019 01:48:00 AM [facility] Name Value Range Interpretation Description Data Sup porting Code Source(s) Document(s ) Erythrocytes TRACE [place] [#/volume] in Hospital Urine by Test strip ID Date Data Source [id number] 01/29/2019 01:48:00 AM [facility] In addition to bilirubin, a positive res ult may be caused by metabolites of certain medications and by atypically colored ur ine samples. If clinically indicated, correlate positive results with serum li josie function tests. Name Value Range Interpretation Code Description Data Isabel rce(s) Supporting Document(s ) Bilirubin. POSITIVE [facility] total Hospital [Presence] in Urine by Test strip ID Date Data Source [id number] 01/29/2019 01:48:00 AM EST [facility] Name Value Range Interpretation Description Data Sup porting Code Source(s) Document(s ) Urobilinogen 1.0 [place] [Units/volume] mg/dL Hospital in Urine by Test strip ID Date Data Source [id number] 01/29/2019 01:48:00 AM EST [facility] Name Value Range Interpretation Description Data Sup porting Code Source(s) Document(s ) Ketones NEGATIVE [facility] [Mass/volume Hospital ] in Urine by Test strip ID Date Data Source [id number] 01/29/2019 01:48:00 AM [facility] Name Value Range Interpretation Description Data Sup porting Code Source(s) Document(s ) Glucose NEGATIVE [place] [Mass/volume Hospital ] in Urine by Test strip ID Date Data Source [id number] 01/29/2019 01:48:00 AM EST [facility] Name Value Range Interpretation Code Description Data Isabel rce(s) Supporting Document(s ) Protein 1+ [facility] [facility] [Presence] Hospital in Urine by Test strip ID Date Data Source [id number] 01/29/2019 01:48:00 AM [facility] Name Value Range Interpretation Code Description Data Isabel rce(s) Supporting Document(s ) pH of Urine 6.0 [place] by Test Hospital strip ID Date Data Source [id number] 01/29/2019 01:48:00 AM [facility] Name Value Range Interpretation Code Description Data Supporting Source(s) Document(s ) Specific 1.014 [place] gravity of Hospital Urine by Test strip ID Date Data Source [id number] 01/29/2019 01:48:00 AM EST [facility] Name Value Range Interpretation Description Data Sup porting Code Source(s) Document(s ) Clarity in Urine CLEAR [place] by Refractometry [facility] automated ID Date Data Source [id number] 01/29/2019 01:48:00 AM [facility] Value Range Interpretation Code Description Data Supporting Source(s) Document(s ) Color of DK YELLOW [facility] [facility] Urine Hospital ID Date Data Source [id number] 01/29/2019 01:48:00 AM [facility] Value Range Interpretation Description Data Sup porting Code Source(s) Document(s ) Erythrocytes 5-10 [place] [#/area] in /[HPF] Hospital Urine sediment by Automated count ID Date Data Source [id number] 01/29/2019 01:48:00 AM [facility] Value Range Interpretation Description Data Sup porting Code Source(s) Document(s ) Leukocytes 0-3 [place] [#/area] in /[HPF] Hospital Urine sediment by Automated count ID Date Data Source [id number] 01/29/2019 01:48:00 AM [facility] Value Range Interpretation Description Data Sup porting Code Source(s) Document(s ) Leukocyte NEGATIVE [facility] [facility] esterase Hospital [Presence] in Urine by Test strip ID Date Data Source [id number] 01/29/2019 01:48:00 AM [facility] Value Range Interpretation Description Data Sup porting Code Source(s) Document(s ) URINE NEGATIVE [facility] [facility] NITRITES Hospital ID Date Data Source [id number] 01/29/2019 01:48:00 AM [facility] Value Range Interpretation Description Data Sup porting Code Source(s) Document(s ) Erythrocytes TRACE [place] [#/volume] in Hospital Urine by Test strip ID Date Data Source [id number] 01/29/2019 01:48:00 AM [facility] In addition to bilirubin, a positive res ult may be caused by metabolites of certain medications and by atypically colored ur ine samples. If clinically indicated, correlate positive results with serum li josie function tests. Name Value Range Interpretation Code Description Data Isabel rce(s) Supporting Document(s ) Bilirubin. POSITIVE [facility] [facility] total Hospital [Presence] in Urine by Test strip ID Date Data Source [id number] 01/29/2019 01:48:00 AM [facility] Name Value Range Interpretation Description Data Sup porting Code Source(s) Document(s ) Urobilinogen 1.0 [place] [Units/volume] mg/dL Hospital in Urine by Test strip ID Date Data Source [id number] 01/29/2019 01:48:00 AM [facility] Name Value Range Interpretation Description Data Sup porting Code Source(s) Document(s ) Ketones NEGATIVE [facility] [facility] [Mass/volume Hospital ] in Urine by Test strip ID Date Data Source [id number] 01/29/2019 01:48:00 AM [facility] Name Value Range Interpretation Description Data Sup porting Code Source(s) Document(s ) Glucose NEGATIVE [facility] [facility] [Mass/volume Hospital ] in Urine by Test strip ID Date Data Source [id number] 01/29/2019 01:48:00 AM [facility] Name Value Range Interpretation Code Description Data Isabel rce(s) Supporting Document(s ) Protein 1+ [facility] [facility] [Presence] Hospital in Urine by Test strip ID Date Data Source [id number] 01/29/2019 01:48:00 AM [facility] Name Value Range Interpretation Code Description Data Isabel rce(s) Supporting Document(s ) pH of Urine 6.0 [place] by Test Hospital strip ID Date Data Source [id number] 01/29/2019 01:48:00 AM [facility] Name Value Range Interpretation Code Description Data Supporting Source(s) Document(s ) Specific 1.014 [place] [facility] gravity of Hospital Urine by Test strip ID Date Data Source [id number] 01/29/2019 01:48:00 AM [facility] Name Value Range Interpretation Description Data Sup porting Code Source(s) Document(s ) Clarity in Urine CLEAR [place] by Refractometry Hospital automated ID Date Data Source [id number] 01/29/2019 01:48:00 AM [facility] Name Value Range Interpretation Code Description Data Supporting Source(s) Document(s ) Color of DK YELLOW [facility] [facility] Urine Hospital ID Date Data Source [id number] 01/29/2019 01:48:00 AM [facility] Name Value Range Interpretation Description Data Sup porting Code Source(s) Document(s ) URINE NEGATIVE [facility] [facility] NITRITES Hospital ID Date Data Source [id number] 01/29/2019 01:48:00 AM [facility] Name Value Range Interpretation Description Data Sup porting Code Source(s) Document(s ) Erythrocytes TRACE [place] [#/volume] in Hospital Urine by Test strip ID Date Data Source [id number] 01/29/2019 01:48:00 AM [facility] In addition to bilirubin, a positive res ult may be caused by metabolites of certain medications and by atypically colored ur ine samples. If clinically indicated, correlate positive results with serum li josie function tests. Name Value Range Interpretation Code Description Data Isabel rce(s) Supporting Document(s ) Bilirubin. POSITIVE [facility] [Presence] in Urine by Test strip ID Date Data Source [id number] 01/29/2019 01:48:00 AM EST [facility] Name Value Range Interpretation Description Data Sup porting Code Source(s) Document(s ) Urobilinogen 1.0 [place] [Units/volume] mg/dL Hospital in Urine by Test strip ID Date Data Source [id number] 01/29/2019 01:48:00 AM EST [facility] Name Value Range Interpretation Description Data Sup porting Code Source(s) Document(s ) Ketones NEGATIVE [facility] [facility] [Mass/volume Hospital ] in Urine by Test strip ID Date Data Source [id number] 01/29/2019 01:48:00 AM EST [facility] Name Value Range Interpretation Description Data Sup porting Code Source(s) Document(s ) Glucose NEGATIVE [facility] [facility] [Mass/volume Hospital ] in Urine by Test strip ID Date Data Source [id number] 01/29/2019 01:48:00 AM EST [facility] Name Value Range Interpretation Code Description Data Isabel rce(s) Supporting Document(s ) Protein 1+ [facility] [Presence] Hospital in Urine by Test strip ID Date Data Source [id number] 01/29/2019 01:48:00 AM EST [facility] Name Value Range Interpretation Code Description Data Isabel rce(s) Supporting Document(s ) pH of Urine 6.0 [facility] [facility] by Test Hospital strip ID Date Data Source [id number] 01/29/2019 01:48:00 AM EST [facility] Name Value Range Interpretation Code Description Data Supporting Source(s) Document(s ) Specific 1.014 [place] [facility] gravity of Hospital Urine by Test strip ID Date Data Source [id number] 01/29/2019 01:48:00 AM EST [facility] Name Value Range Interpretation Description Data Sup porting Code Source(s) Document(s ) Clarity in Urine CLEAR [place] by Refractometry Hospital automated ID Date Data Source [id number] 01/29/2019 01:48:00 AM [facility] Name Value Range Interpretation Code Description Data Supporting Source(s) Document(s ) Color of DK YELLOW [facility] Urine Hospital ID Date Data Source [id number] 01/29/2019 01:48:00 AM EST [facility] Name Value Range Interpretation Description Data Sup porting Code Source(s) Document(s ) Erythrocytes 5-10 [place] [#/area] in /[HPF] Hospital Urine sediment by Automated count ID Date Data Source [id number] 01/29/2019 01:48:00 AM [facility] Name Value Range Interpretation Description Data Sup porting Code Source(s) Document(s ) Leukocytes 0-3 [place] [#/area] in /[HPF] Hospital Urine sediment by Automated count ID Date Data Source [id number] 01/29/2019 01:48:00 AM [facility] Name Value Range Interpretation Description Data Sup porting Code Source(s) Document(s ) Leukocyte NEGATIVE [facility] [facility] esterase Hospital [Presence] in Urine by Test strip ID Date Data Source [id number] 01/28/2019 06:50:00 AM [facility] Name Value Range Interpretation Description Data Sup porting Code Source(s) Document(s ) Ferritin 239.0 [place] [Mass/volume ng/mL Hospital ] in Serum or Plasma ID Date Data Source [id number] 01/28/2019 06:50:00 AM [facility] Value Range Interpretation Description Data Sup porting Code Source(s) Document(s ) Iron saturation 27 % [place] [Mass Fraction] Hospital in Serum or Plasma ID Date Data Source [id number] 01/28/2019 06:50:00 AM [facility] Name Value Range Interpretation Description Data Sup porting Code Source(s) Document(s ) UNSAT IRON 229 ug/dL [facility] Hospital CAPACITY ID Date Data Source [id number] 01/28/2019 06:50:00 AM [facility] Value Range Interpretation Description Data Sup porting Code Source(s) Document(s ) Iron binding 316 ug/dL [facility] [facility] capacity Hospital [Mass/volume ] in Serum or Plasma ID Date Data Source [id number] 01/28/2019 06:50:00 AM [facility] Value Range Interpretation Code Description Data Supporting Source(s) Document(s ) Iron 87 ug/dL [place] [Mass/volum Hospital e] in Serum or Plasma ID Date Data Source [id number] 01/28/2019 06:50:00 AM [facility] Value Range Interpretation Description Data Sup porting Code Source(s) Document(s ) Lactate < 0.5 [place] [Moles/volum mmol/L Hospital e] in Serum or Plasma ID Date Data Source [id number] 01/28/2019 06:50:00 AM [facility] Value Range Interpretation Description Data Sup porting Code Source(s) Document(s ) Ferritin 239.0 [place] [Mass/volume ng/mL Hospital ] in Serum or Plasma ID Date Data Source [id number] 01/28/2019 06:50:00 AM [facility] Name Value Range Interpretation Description Data Sup porting Code Source(s) Document(s ) Iron saturation 27 % [facility] [facility] [Mass Fraction] Hospital in Serum or Plasma ID Date Data Source [id number] 01/28/2019 06:50:00 AM [facility] Value Range Interpretation Description Data Sup porting Code Source(s) Document(s ) UNSAT IRON 229 ug/dL [facility] Hospital CAPACITY ID Date Data Source [id number] 01/28/2019 06:50:00 AM EST [facility] Name Value Range Interpretation Description Data Sup porting Code Source(s) Document(s ) Iron binding 316 ug/dL [facility] capacity Hospital [Mass/volume ] in Serum or Plasma ID Date Data Source [id number] 01/28/2019 06:50:00 AM EST [facility] Name Value Range Interpretation Code Description Data Supporting Source(s) Document(s ) Iron 87 ug/dL [facility] [facility] [Mass/volum Hospital e] in Serum or Plasma ID Date Data Source [id number] 01/28/2019 06:50:00 AM EST [facility] Name Value Range Interpretation Description Data Sup porting Code Source(s) Document(s ) Lactate < 0.5 [place] [facility] [Moles/volum mmol/L Hospital e] in Serum or Plasma ID Date Data Source [id number] 01/28/2019 06:50:00 AM EST [facility] Name Value Range Interpretation Description Data Sup porting Code Source(s) Document(s ) Ferritin 239.0 [facility] [facility] [Mass/volume ng/mL Hospital ] in Serum or Plasma ID Date Data Source [id number] 01/28/2019 06:50:00 AM EST [facility] Name Value Range Interpretation Description Data Sup porting Code Source(s) Document(s ) Iron saturation 27 % [facility] [facility] [Mass Fraction] Hospital in Serum or Plasma ID Date Data Source [id number] 01/28/2019 06:50:00 AM EST [facility] Name Value Range Interpretation Description Data Sup porting Code Source(s) Document(s ) [facility] 229 ug[facility] Date Data Source [id number] 01/28/2019 06:50:00 AM [facility] Name Value Range Interpretation Description Data Sup porting Code Source(s) Document(s ) Iron binding 316 ug/dL [facility] capacity Hospital [Mass/volume ] in Serum or Plasma ID Date Data Source [id number] 01/28/2019 06:50:00 AM [facility] Value Range Interpretation Code Description Data Supporting Source(s) Document(s ) Iron 87 ug/dL [facility] [facility] [Mass/volum Hospital e] in Serum or Plasma ID Date Data Source [id number] 01/28/2019 06:50:00 AM [facility] Name Value Range Interpretation Description Data Sup porting Code Source(s) Document(s ) Lactate < 0.5 [facility] [facility] [Moles/volum mmol/L Hospital e] in Serum or Plasma ID Date Data Source [id number] 01/28/2019 06:50:00 AM [facility] Value Range Interpretation Code Description Data Supporting Source(s) Document(s ) Immature 39.2 % [facility] reticulocytes Hospital /Reticulocyte s.total in Blood ID Date Data Source [id number] 01/28/2019 06:50:00 AM [facility] Value Range Interpretation Description Data Sup porting Code Source(s) Document(s ) Reticulocytes 0.26 [facility] [facility] [#/volume] in 10*6/uL Hospital Blood by Automated count ID Date Data Source [id number] 01/28/2019 06:50:00 AM [facility] Value Range Interpretation Description Data Sup porting Code Source(s) Document(s ) Reticulocytes/10 9.18 % [facility] 0 erythrocytes Hospital in Blood by Automated count ID Date Data Source [id number] 01/28/2019 01:52:00 AM [facility] Name Value Range Interpretation Description Data Sup porting Code Source(s) Document(s ) Bacteria No growth [facility] identified in Hospital Blood by Culture ID Date Data Source [id number] 01/28/2019 01:52:00 AM [facility] Name Value Range Interpretation Description Data Sup porting Code Source(s) Document(s ) Bacteria No growth [facility] identified in Hospital Blood by Culture ID Date Data Source [id number] 01/28/2019 01:52:00 AM [facility] Name Value Range Interpretation Description Data Sup porting Code Source(s) Document(s ) Bacteria No growth [facility] [facility] identified in Hospital Blood by Culture ID Date Data Source [id number] 01/27/2019 10:37:00 AM [facility] Name Value Range Interpretation Description Data Sup porting Code Source(s) Document(s ) Hepatitis C NON-REACT [place] virus Ab [facility] Hospital [Presence] in Serum ID Date Data Source [id number] 01/27/2019 10:37:00 AM [facility] Name Value Range Interpretation Description Data Sup porting Code Source(s) Document(s ) Hepatitis B NON-REACT [place] virus core [facility] IgM Ab [Presence] in Serum ID Date Data Source [id number] 01/27/2019 10:37:00 AM [facility] Name Value Range Interpretation Description Data Sup porting Code Source(s) Document(s ) Hepatitis A NON-REACT [place] virus IgM Ab [facility] [Presence] in Serum ID Date Data Source [id number] 01/27/2019 10:37:00 AM [facility] Name Value Range Interpretation Description Data Sup porting Code Source(s) Document(s ) Hepatitis B NON-REACT [place] virus surface [facility] Ag [Presence] in Serum ID Date Data Source [id number] 01/27/2019 10:37:00 AM EST [facility] Name Value Range Interpretation Description Data Sup porting Code Source(s) Document(s ) Hepatitis C NON-REACT [place] virus Ab [facility] [Presence] in Serum ID Date Data Source [id number] 01/27/2019 10:37:00 AM EST [facility] Name Value Range Interpretation Description Data Sup porting Code Source(s) Document(s ) Hepatitis B NON-REACT [place] virus core [facility] IgM Ab [Presence] in Serum ID Date Data Source [id number] 01/27/2019 10:37:00 AM [facility] Name Value Range Interpretation Description Data Sup porting Code Source(s) Document(s ) Hepatitis A NON-REACT [place] virus IgM Ab [facility] [Presence] in Serum ID Date Data Source [id number] 01/27/2019 10:37:00 AM [facility] Name Value Range Interpretation Description Data Sup porting Code Source(s) Document(s ) Hepatitis B NON-REACT [place] virus surface [facility] Ag [Presence] in Serum ID Date Data Source [id number] 01/27/2019 10:37:00 AM [facility] Name Value Range Interpretation Description Data Sup porting Code Source(s) Document(s ) Hepatitis C NON-REACT [place] virus Ab [facility] [Presence] in Serum ID Date Data Source [id number] 01/27/2019 10:37:00 AM [facility] Name Value Range Interpretation Description Data Sup porting Code Source(s) Document(s ) Hepatitis B NON-REACT [place] virus core [facility] IgM Ab [Presence] in Serum ID Date Data Source [id number] 01/27/2019 10:37:00 AM [facility] Name Value Range Interpretation Description Data Sup porting Code Source(s) Document(s ) Hepatitis A NON-REACT [place] virus IgM Ab [facility] Hospital [Presence] in Serum ID Date Data Source [id number] 01/27/2019 10:37:00 AM [facility] Name Value Range Interpretation Description Data Sup porting Code Source(s) Document(s ) Hepatitis B NON-REACT [place] virus surface [facility] Hospital Ag [Presence] in Serum ID Date Data Source [id number] 01/26/2019 09:56:00 AM [facility] Value Range Interpretation Description Data Sup porting Code Source(s) Document(s ) Choriogonadotropin NEGATIVE White ( test) [place] [Presence] in Urine Hospital ID Date Data Source [id number] 01/26/2019 09:56:00 AM [facility] Name Value Range Interpretation Description Data Sup porting Code Source(s) Document(s ) Choriogonadotropin NEGATIVE White ( test) [place] [Presence] in Urine Hospital ID Date Data Source [id number] 01/26/2019 09:56:00 AM [facility] Value Range Interpretation Description Data Sup porting Code Source(s) Document(s ) Choriogonadotropin NEGATIVE White ( test) [place] [Presence] in Urine Hospital ID Date Data Source [id number] 01/26/2019 09:52:00 AM [facility] Value Range Interpretation Description Data Sup porting Code Source(s) Document(s ) Epithelial 3+ [place] cells.squamous Hospital [#/area] in Urine sediment by Microscopy high power field ID Date Data Source [id number] 01/26/2019 09:52:00 AM [facility] Value Range Interpretation Description Data Sup porting Code Source(s) Document(s ) Bacteria OCCASIONAL [place] [#/area] in Hospital Urine sediment by Microscopy high power field ID Date Data Source [id number] 01/26/2019 09:52:00 AM [facility] Name Value Range Interpretation Description Data Sup porting Code Source(s) Document(s ) Erythrocytes NEGATIVE [facility] [#/area] in /[HPF] [place] Urine sediment Hospital by Microscopy high power field ID Date Data Source [id number] 01/26/2019 09:52:00 AM [facility] Name Value Range Interpretation Description Data Sup porting Code Source(s) Document(s ) Leukocytes NEGATIVE [place] [#/area] in /[HPF] Hospital Urine sediment by Microscopy high power field ID Date Data Source [id number] 01/26/2019 09:52:00 AM [facility] Value Range Interpretation Description Data Sup porting Code Source(s) Document(s ) Epithelial 3+ [place] cells.squamous Hospital [#/area] in Urine sediment by Microscopy high power field ID Date Data Source [id number] 01/26/2019 09:52:00 AM [facility] Value Range Interpretation Description Data Sup porting Code Source(s) Document(s ) Bacteria OCCASIONAL [place] [#/area] in Hospital Urine sediment by Microscopy high power field ID Date Data Source [id number] 01/26/2019 09:52:00 AM [facility] Name Value Range Interpretation Description Data Sup porting Code Source(s) Document(s ) Erythrocytes NEGATIVE [facility] [#/area] in /[HPF] [place] Urine sediment Hospital by Microscopy high power field ID Date Data Source [id number] 01/26/2019 09:52:00 AM [facility] Name Value Range Interpretation Description Data Sup porting Code Source(s) Document(s ) Leukocytes NEGATIVE [place] [#/area] in /[HPF] Hospital Urine sediment by Microscopy high power field ID Date Data Source [id number] 01/26/2019 09:52:00 AM [facility] Name Value Range Interpretation Description Data Sup porting Code Source(s) Document(s ) Epithelial 3+ [place] cells.squamous Hospital [#/area] in Urine sediment by Microscopy high power field ID Date Data Source [id number] 01/26/2019 09:52:00 AM [facility] Name Value Range Interpretation Description Data Sup porting Code Source(s) Document(s ) Bacteria OCCASIONAL [place] [#/area] in Hospital Urine sediment by Microscopy high power field ID Date Data Source [id number] 01/26/2019 09:52:00 AM [facility] Name Value Range Interpretation Description Data Sup porting Code Source(s) Document(s ) Erythrocytes NEGATIVE [facility] [#/area] in /[HPF] [place] Urine sediment Hospital by Microscopy high power field ID Date Data Source [id number] 01/26/2019 09:52:00 AM [facility] Name Value Range Interpretation Description Data Sup porting Code Source(s) Document(s ) Leukocytes NEGATIVE [place] [#/area] in /[HPF] Hospital Urine sediment by Microscopy high power field ID Date Data Source [id number] 01/14/2019 11:53:00 AM [facility] THERAPEUTIC RANGES:UNFRACTIONATED HEPARI N THERAPY: 60-90 SECONDSARGATROBAN THERAPY: 49-99 SECONDS Name Value Range Interpretation Description Data Sup porting Code Source(s) Document(s ) aPTT in 31.0 s [place] Platelet poor [facility] plasma by Coagulation assay ID Date Data Source [id number] 01/14/2019 11:53:00 AM [facility] Name Value Range Interpretation Description Data Sup porting Code Source(s) Document(s ) Calcium 8.2 mg/dL [place] [Mass/volume Hospital ] in Serum or Plasma ID Date Data Source [id number] 01/14/2019 11:53:00 AM [facility] Name Value Range Interpretation Code Description Data Isabel rce(s) Supporting Document(s ) Urea 10.0 [place] nitrogen/Cre Hospital atinine [Mass Ratio] in Serum or Plasma ID Date Data Source [id number] 01/14/2019 11:53:00 AM [facility] Name Value Range Interpretation Description Data Sup porting Code Source(s) Document(s ) Creatinine 0.5 mg/dL [place] [Mass/volume] Hospital in Serum or Plasma ID Date Data Source [id number] 01/14/2019 11:53:00 AM [facility] Name Value Range Interpretation Description Data Sup porting Code Source(s) Document(s ) Urea < 5 mg/dL [place] nitrogen Hospital [Mass/volume ] in Serum or Plasma ID Date Data Source [id number] 01/14/2019 11:53:00 AM [facility] Name Value Range Interpretation Code Description Data Isabel rce(s) Supporting Document(s ) Anion gap in [address] [place] [address] Serum or Hospital Plasma ID Date Data Source [id number] 01/14/2019 11:53:00 AM [facility] Name Value Range Interpretation Description Data Sup porting Code Source(s) Document(s ) Carbon 27 mmol/L [place] dioxide, Hospital total [Moles/volu me] in Serum or Plasma ID Date Data Source [id number] 01/14/2019 11:53:00 AM [facility] Name Value Range Interpretation Description Data Sup porting Code Source(s) Document(s ) Chloride 105 [place] [Moles/volum mmol/L Hospital e] in Serum or Plasma ID Date Data Source [id number] 01/14/2019 11:53:00 AM [facility] Name Value Range Interpretation Description Data Sup porting Code Source(s) Document(s ) Potassium 3.8 [place] [Moles/volume mmol/L Hospital ] in Serum or Plasma ID Date Data Source [id number] 01/14/2019 11:53:00 AM [facility] Name Value Range Interpretation Description Data Sup porting Code Source(s) Document(s ) Sodium 140 mmol/L [place] [Moles/volu Hospital me] in Serum or Plasma ID Date Data Source [id number] 01/14/2019 11:53:00 AM [facility] Name Value Range Interpretation Description Data Sup porting Code Source(s) Document(s ) Glucose 99 mg/dL [place] [Mass/volume Hospital ] in Serum or Plasma ID Date Data Source [id number] 01/14/2019 11:53:00 AM [facility] THERAPEUTIC RANGES:UNFRACTIONATED HEPARI N THERAPY: 60-90 SECONDSARGATROBAN THERAPY: 49-99 SECONDS Name Value Range Interpretation Description Data Sup porting Code Source(s) Document(s ) aPTT in 31.0 s [place] Platelet poor [facility] plasma by Coagulation assay ID Date Data Source [id number] 01/14/2019 11:53:00 AM [facility] THERAPEUTIC RANGE FOR STANDARD ORALANTIC OAGULANT THERAPY: 2.0-3.0THERAPEUTIC RANGE FOR HIGH DOSE ORALANTICOAGULANT THERAPY (MECHANICAL HEARTVALVE REPLACEMENT): 2.5-3.5 Name Value Range Interpretation Description Data Sup porting Code Source(s) Document(s ) INR in Platelet 1.2 [place] poor plasma by Hospital Coagulation assay ID Date Data Source [id number] 01/14/2019 11:53:00 AM [facility] Name Value Range Interpretation Description Data Sup porting Code Source(s) Document(s ) PT panel - 13.5 s [place] Platelet poor Hospital plasma by Coagulation assay ID Date Data Source [id number] 01/14/2019 11:53:00 AM [facility] Name Value Range Interpretation Code Description Data Supporting Source(s) Document(s ) NUCLEATED RBCS 0.5 % [place] (AUTO Hospital DIFF%)DIS ID Date Data Source [id number] 01/14/2019 11:53:00 AM [facility] Value Range Interpretation Description Data Sup porting Code Source(s) Document(s ) Differential AUTOMATED [place] cell count [facility] method - Blood ID Date Data Source [id number] 01/14/2019 11:53:00 AM [facility] Value Range Interpretation Description Data Sup porting Code Source(s) Document(s ) Immature 0.04 [place] granulocytes 10*3/uL Hospital [#/volume] in Blood by Automated count ID Date Data Source [id number] 01/14/2019 11:53:00 AM [facility] Name Value Range Interpretation Description Data Sup porting Code Source(s) Document(s ) Basophils 0.03 [place] [#/volume] in 10*3/uL Hospital Blood by Automated count ID Date Data Source [id number] 01/14/2019 11:53:00 AM [facility] Name Value Range Interpretation Description Data Sup porting Code Source(s) Document(s ) Eosinophils 0.05 [place] [#/volume] in 10*3/uL Hospital Blood by Automated count ID Date Data Source [id number] 01/14/2019 11:53:00 AM [facility] Name Value Range Interpretation Description Data Sup porting Code Source(s) Document(s ) Monocytes 1.33 [place] [#/volume] in 10*3/uL Hospital Blood by Automated count ID Date Data Source [id number] 01/14/2019 11:53:00 AM EST [facility] Name Value Range Interpretation Description Data Sup porting Code Source(s) Document(s ) Lymphocytes 1.51 [place] [#/volume] in 10*3/uL Hospital Blood by Automated count ID Date Data Source [id number] 01/14/2019 11:53:00 AM EST [facility] Value Range Interpretation Description Data Sup porting Code Source(s) Document(s ) Neutrophils 5.27 [place] [#/volume] in 10*3/uL [facility] Blood by Automated count ID Date Data Source [id number] 01/14/2019 11:53:00 AM EST [facility] Value Range Interpretation Description Data Sup porting Code Source(s) Document(s ) Nucleated 0.5 % [place] erythrocytes/10 Hospital 0 leukocytes [Ratio] in Blood by Automated count ID Date Data Source [id number] 01/14/2019 11:53:00 AM EST [facility] Value Range Interpretation Description Data Sup porting Code Source(s) Document(s ) Immature 0.5 % [place] granulocytes/10 Hospital 0 leukocytes in Blood by Automated count ID Date Data Source [id number] 01/14/2019 11:53:00 AM EST [facility] Value Range Interpretation Description Data Sup porting Code Source(s) Document(s ) Basophils/100 0.4 % [place] leukocytes in Hospital Blood by Automated count ID Date Data Source [id number] 01/14/2019 11:53:00 AM EST [facility] Value Range Interpretation Description Data Sup porting Code Source(s) Document(s ) Eosinophils/100 0.6 % [place] leukocytes in Hospital Blood by Automated count ID Date Data Source [id number] 01/14/2019 11:53:00 AM EST [facility] Name Value Range Interpretation Description Data Sup porting Code Source(s) Document(s ) Monocytes/100 16.2 % [place] leukocytes in Hospital Blood by Automated count ID Date Data Source [id number] 01/14/2019 11:53:00 AM EST [facility] Name Value Range Interpretation Description Data Sup porting Code Source(s) Document(s ) Lymphocytes/10 18.3 % [place] 0 leukocytes Hospital in Blood by Automated count ID Date Data Source [id number] 01/14/2019 11:53:00 AM EST [facility] Name Value Range Interpretation Description Data Sup porting Code Source(s) Document(s ) Neutrophils/10 64.0 % [place] 0 leukocytes Hospital in Blood by Automated count ID Date Data Source [id number] 01/14/2019 11:53:00 AM EST [facility] Name Value Range Interpretation Description Data Sup porting Code Source(s) Document(s ) Platelet mean 10.0 fL [place] volume Hospital [Entitic volume] in Blood by Automated count ID Date Data Source [id number] 01/14/2019 11:53:00 AM EST [facility] Name Value Range Interpretation Description Data Sup porting Code Source(s) Document(s ) Platelets 281 [place] [#/volume] in 10*3/uL Hospital Blood by Automated count ID Date Data Source [id number] 01/14/2019 11:53:00 AM [facility] Name Value Range Interpretation Description Data Sup porting Code Source(s) Document(s ) Erythrocyte 17.4 % [place] distribution Hospital width [Ratio] by Automated count ID Date Data Source [id number] 01/14/2019 11:53:00 AM [facility] Name Value Range Interpretation Description Data Sup porting Code Source(s) Document(s ) Erythrocyte mean 37.0 [place] corpuscular g/dL Hospital hemoglobin concentration [Mass/volume] by Automated count ID Date Data Source [id number] 01/14/2019 11:53:00 AM [facility] Name Value Range Interpretation Description Data Sup porting Code Source(s) Document(s ) Erythrocyte 29.4 pg [facility] corpuscular hemoglobin [Entitic mass] by Automated count ID Date Data Source [id number] 01/14/2019 11:53:00 AM [facility] Name Value Range Interpretation Description Data Sup porting Code Source(s) Document(s ) Erythrocyte 79.6 fL [facility] corpuscular volume [Entitic volume] by Automated count ID Date Data Source [id number] 01/14/2019 11:53:00 AM [facility] NOTIFICATION AND READ BACK OF CRITICAL R ESULTS TO THAIS RN/AC AT 1231 ON 01/14/19 BY Arie Medina.THIS RESULT HAS BEEN VERI FIED. Name Value Range Interpretation Description Data Sup porting Code Source(s) Document(s ) Hematocrit 23.8 % [place] [Volume Hospital Fraction] of Blood by Automated count ID Date Data Source [id number] 01/14/2019 11:53:00 AM [facility] Name Value Range Interpretation Description Data Sup porting Code Source(s) Document(s ) Hemoglobin 8.8 g/dL [place] [Mass/volume] Hospital in Blood ID Date Data Source [id number] 01/14/2019 11:53:00 AM [facility] Name Value Range Interpretation Description Data Sup porting Code Source(s) Document(s ) Erythrocytes 2.99 [place] [#/volume] in 10*6/uL Hospital Blood by Automated count ID Date Data Source [id number] 01/14/2019 11:53:00 AM [facility] Name Value Range Interpretation Description Data Sup porting Code Source(s) Document(s ) Leukocytes 8.2 [place] [#/volume] in 10*3/uL Hospital Blood by Automated count ID Date Data Source [id number] 01/14/2019 11:53:00 AM [facility] THERAPEUTIC RANGES:UNFRACTIONATED HEPARI N THERAPY: 60-90 SECONDSARGATROBAN THERAPY: 49-99 SECONDS Name Value Range Interpretation Description Data Sup porting Code Source(s) Document(s ) aPTT in 31.0 s [place] Platelet poor [facility] plasma by Coagulation assay ID Date Data Source [id number] 01/14/2019 11:53:00 AM [facility] Name Value Range Interpretation Description Data Sup porting Code Source(s) Document(s ) Aspartate 37 U/L [facility] aminotransferase [place] [Enzymatic Hospital activity/volume] in Serum or Plasma ID Date Data Source [id number] 01/14/2019 11:53:00 AM [facility] Name Value Range Interpretation Description Data Sup porting Code Source(s) Document(s ) Alanine 16 U/L White aminotransferase [place] [Enzymatic Hospital activity/volume] in Serum or Plasma ID Date Data Source [id number] 01/14/2019 11:53:00 AM [facility] Name Value Range Interpretation Description Data Sup porting Code Source(s) Document(s ) Alkaline 109 U/L [facility] Hospital [Enzymatic activity/volume ] in Serum or Plasma ID Date Data Source [id number] 01/14/2019 11:53:00 AM [facility] Name Value Range Interpretation Description Data Sup porting Code Source(s) Document(s ) Bilirubin.t 2.7 mg/dL [facility] [Mass/volum e] in Serum or Plasma ID Date Data Source [id number] 01/14/2019 11:53:00 AM [facility] Name Value Range Interpretation Code Description Data Isabel rce(s) Supporting Document(s ) Albumin/Glob 1.0 [place] ulin [Mass Hospital Ratio] in Serum or Plasma ID Date Data Source [id number] 01/14/2019 11:53:00 AM [facility] Name Value Range Interpretation Description Data Sup porting Code Source(s) Document(s ) Albumin 3.5 g/dL [place] [Mass/volume Hospital ] in Serum or Plasma ID Date Data Source [id number] 01/14/2019 11:53:00 AM [facility] Name Value Range Interpretation Description Data Sup porting Code Source(s) Document(s ) Protein 7.1 g/dL [place] [Mass/volume Hospital ] in Serum or Plasma ID Date Data Source [id number] 01/09/2019 11:26:00 AM [facility] Name Value Range Interpretation Description Data Sup porting Code Source(s) Document(s ) Aspartate 38 U/L [facility] aminotransferase [place] [Enzymatic Hospital activity/volume] in Serum or Plasma ID Date Data Source [id number] 01/09/2019 11:26:00 AM [facility] Name Value Range Interpretation Description Data Sup porting Code Source(s) Document(s ) Alanine 17 U/L [facility] aminotransferase [place] [Enzymatic Hospital activity/volume] in Serum or Plasma ID Date Data Source [id number] 01/09/2019 11:26:00 AM [facility] Name Value Range Interpretation Description Data Sup porting Code Source(s) Document(s ) Alkaline 142 U/L [place] phosphatase Hospital [Enzymatic activity/volume ] in Serum or Plasma ID Date Data Source [id number] 01/09/2019 11:26:00 AM [facility] Name Value Range Interpretation Description Data Sup porting Code Source(s) Document(s ) Bilirubin.t 2.4 mg/dL [facility] [Mass/volum e] in Serum or Plasma ID Date Data Source [id number] 01/09/2019 11:26:00 AM [facility] Name Value Range Interpretation Code Description Data Isabel rce(s) Supporting Document(s ) Albumin/Glob 1.1 [place] ulin [Mass Hospital Ratio] in Serum or Plasma ID Date Data Source [id number] 01/09/2019 11:26:00 AM [facility] Name Value Range Interpretation Description Data Sup porting Code Source(s) Document(s ) Albumin 3.8 g/dL [place] [Mass/volume Hospital ] in Serum or Plasma ID Date Data Source [id number] 01/09/2019 11:26:00 AM [facility] Name Value Range Interpretation Description Data Sup porting Code Source(s) Document(s ) Protein 7.4 g/dL [place] [Mass/volume Hospital ] in Serum or Plasma ID Date Data Source [id number] 01/09/2019 11:26:00 AM [facility] Name Value Range Interpretation Description Data Sup porting Code Source(s) Document(s ) Calcium 8.4 mg/dL [facility] [facility] [Mass/volume Hospital ] in Serum or Plasma ID Date Data Source [id number] 01/09/2019 11:26:00 AM [facility] Name Value Range Interpretation Code Description Data Isabel rce(s) Supporting Document(s ) Urea 16.7 [facility] [facility] nitrogen/Cre Hospital atinine [Mass Ratio] in Serum or Plasma ID Date Data Source [id number] 01/09/2019 11:26:00 AM [facility] Name Value Range Interpretation Description Data Sup porting Code Source(s) Document(s ) Creatinine 0.6 mg/dL [facility] [facility] [Mass/volume] Hospital in Serum or Plasma ID Date Data Source [id number] 01/09/2019 11:26:00 AM [facility] Name Value Range Interpretation Description Data Sup porting Code Source(s) Document(s ) Urea 10 mg/dL [facility] nitrogen Hospital [Mass/volume ] in Serum or Plasma ID Date Data Source [id number] 01/09/2019 11:26:00 AM [facility] Value Range Interpretation Code Description Data Isabel rce(s) Supporting Document(s ) Anion gap in 10 [facility] Serum or Hospital Plasma ID Date Data Source [id number] 01/09/2019 11:26:00 AM [facility] Name Value Range Interpretation Description Data Sup porting Code Source(s) Document(s ) Carbon 28 mmol/L [facility] dioxide, Hospital total [Moles/volu me] in Serum or Plasma ID Date Data Source [id number] 01/09/2019 11:26:00 AM [facility] Name Value Range Interpretation Description Data Sup porting Code Source(s) Document(s ) Chloride 104 [facility] [facility] [Moles/volum mmol/L Hospital e] in Serum or Plasma ID Date Data Source [id number] 01/09/2019 11:26:00 AM [facility] Name Value Range Interpretation Description Data Sup porting Code Source(s) Document(s ) Potassium 3.6 [facility] [facility] [Moles/volume mmol/L Hospital ] in Serum or Plasma ID Date Data Source [id number] 01/09/2019 11:26:00 AM EST [facility] Name Value Range Interpretation Description Data Sup porting Code Source(s) Document(s ) Sodium 138 mmol/L [facility] [Moles/volu Hospital fl] in Serum or Plasma ID Date Data Source [id number] 01/09/2019 11:26:00 AM [facility] Name Value Range Interpretation Description Data Sup porting Code Source(s) Document(s ) Glucose 91 mg/dL [facility] [facility] [Mass/volume Hospital ] in Serum or Plasma ID Date Data Source [id number] 01/09/2019 11:26:00 AM [facility] Name Value Range Interpretation Code Description Data Supporting Source(s) Document(s ) NUCLEATED RBCS 0.9 % [facility] (AUTO Hospital DIFF%)DIS ID Date Data Source [id number] 01/09/2019 11:26:00 AM [facility] Name Value Range Interpretation Description Data Sup porting Code Source(s) Document(s ) Differential MANUAL [facility] cell count Hospital method - Blood ID Date Data Source [id number] 01/09/2019 11:26:00 AM [facility] Name Value Range Interpretation Code Description Data Isabel rce(s) Supporting Document(s ) Cells 100 [facility] Counted Hospital Total [#] in Blood ID Date Data Source [id number] 01/09/2019 11:26:00 AM [facility] Name Value Range Interpretation Code Description Data Supporting Source(s) Document(s ) PLATELET NORMAL [facility] COMMENT Hospital ID Date Data Source [id number] 01/09/2019 11:26:00 AM [facility] Name Value Range Interpretation Code Description Data Isabel rce(s) Supporting Document(s ) SICKLE CELLS 1+ [facility] ID Date Data Source [id number] 01/09/2019 11:26:00 AM [facility] Name Value Range Interpretation Code Description Data Isabel rce(s) Supporting Document(s ) SCHISTOCYTES 1+ [facility] ID Date Data Source [id number] 01/09/2019 11:26:00 AM [facility] Name Value Range Interpretation Code Description Data Isabel rce(s) Supporting Document(s ) ELLIPTOCYTES OCC [facility] ID Date Data Source [id number] 01/09/2019 11:26:00 AM [facility] Name Value Range Interpretation Code Description Data Isabel rce(s) Supporting Document(s ) TARGET CELLS 3+ [facility] ID Date Data Source [id number] 01/09/2019 11:26:00 AM [facility] Name Value Range Interpretation Code Description Data Isabel rce(s) Supporting Document(s ) TEARDROP OCC [facility] Hospital ID Date Data Source [id number] 01/09/2019 11:26:00 AM [facility] Name Value Range Interpretation Code Description Data Isabel rce(s) Supporting Document(s ) OVALOCYTES 2+ [facility] ID Date Data Source [id number] 01/09/2019 11:26:00 AM [facility] --- 01/09/19 1522 ---POLY previously re ported as: 1+ Name Value Range Interpretation Code Description Data Supporting Source(s) Document(s ) POLYCHROMASIA 2+ [facility] ID Date Data Source [id number] 01/09/2019 11:26:00 AM [facility] Name Value Range Interpretation Code Description Data Isabel rce(s) Supporting Document(s ) MICROCYTOSIS 3+ [facility] ID Date Data Source [id number] 01/09/2019 11:26:00 AM EST [facility] Name Value Range Interpretation Description Data Sup porting Code Source(s) Document(s ) POIKILOCYTOSIS 3+ [facility] ID Date Data Source [id number] 01/09/2019 11:26:00 AM [facility] Name Value Range Interpretation Code Description Data Isabel rce(s) Supporting Document(s ) ANISOCYTOSIS 3+ [facility] ID Date Data Source [id number] 01/09/2019 11:26:00 AM [facility] Name Value Range Interpretation Description Data Sup porting Code Source(s) Document(s ) Eosinophils 0.10 [facility] [facility] [#/volume] in 10*3/uL Hospital Blood by Manual count ID Date Data Source [id number] 01/09/2019 11:26:00 AM EST [facility] Name Value Range Interpretation Description Data Sup porting Code Source(s) Document(s ) Monocytes 0.78 [facility] [facility] [#/volume] in 10*3/uL Hospital Blood by Manual count ID Date Data Source [id number] 01/09/2019 11:26:00 AM EST [facility] Name Value Range Interpretation Description Data Sup porting Code Source(s) Document(s ) Lymphocytes 0.87 [facility] [facility] [#/volume] in 10*3/uL Hospital Blood by Manual count ID Date Data Source [id number] 01/09/2019 11:26:00 AM EST [facility] Name Value Range Interpretation Description Data Sup porting Code Source(s) Document(s ) Neutrophils 7.86 [facility] [#/volume] in 10*3/uL Hospital Blood by Manual count ID Date Data Source [id number] 01/09/2019 11:26:00 AM EST [facility] Name Value Range Interpretation Description Data Sup porting Code Source(s) Document(s ) Nucleated 2 % [facility] erythrocytes/10 Hospital 0 leukocytes [Ratio] in Blood by Manual count ID Date Data Source [id number] 01/09/2019 11:26:00 AM EST [facility] Name Value Range Interpretation Description Data Sup porting Code Source(s) Document(s ) Eosinophils/100 1 % [facility] leukocytes in Hospital Blood by Manual count ID Date Data Source [id number] 01/09/2019 11:26:00 AM EST [facility] Name Value Range Interpretation Description Data Sup porting Code Source(s) Document(s ) Monocytes/100 8 % [facility] leukocytes in Hospital Blood by Manual count ID Date Data Source [id number] 01/09/2019 11:26:00 AM [facility] Value Range Interpretation Description Data Sup porting Code Source(s) Document(s ) Lymphocytes/100 9 % [facility] leukocytes in Hospital Blood by Manual count ID Date Data Source [id number] 01/09/2019 11:26:00 AM [facility] Value Range Interpretation Description Data Sup porting Code Source(s) Document(s ) Neutrophils/100 81 % [facility] [facility] leukocytes in [facility] Blood by Manual count ID Date Data Source [id number] 01/09/2019 11:26:00 AM [facility] Value Range Interpretation Description Data Sup porting Code Source(s) Document(s ) Platelet mean 10.0 fL [facility] volume Hospital [Entitic volume] in Blood by Automated count ID Date Data Source [id number] 01/09/2019 11:26:00 AM [facility] Name Value Range Interpretation Description Data Sup porting Code Source(s) Document(s ) Platelets 250 [facility] [facility] [#/volume] in 10*3/uL Hospital Blood by Automated count ID Date Data Source [id number] 01/09/2019 11:26:00 AM [facility] Name Value Range Interpretation Description Data Sup porting Code Source(s) Document(s ) Erythrocyte 18.5 % [facility] width [Ratio] by Automated count ID Date Data Source [id number] 01/09/2019 11:26:00 AM [facility] Name Value Range Interpretation Description Data Sup porting Code Source(s) Document(s ) Erythrocyte mean 36.9 [facility] corpuscular g/dL Hospital hemoglobin concentration [Mass/volume] by Automated count ID Date Data Source [id number] 01/09/2019 11:26:00 AM [facility] Name Value Range Interpretation Description Data Sup porting Code Source(s) Document(s ) Erythrocyte 30.2 pg [facility] corpuscular hemoglobin [Entitic mass] by Automated count ID Date Data Source [id number] 01/09/2019 11:26:00 AM [facility] Value Range Interpretation Description Data Sup porting Code Source(s) Document(s ) Erythrocyte 81.9 fL [facility] corpuscular volume [Entitic volume] by Automated count ID Date Data Source [id number] 01/09/2019 11:26:00 AM [facility] THIS RESULT HAS BEEN VERIFIED.NOTIFICATI ON AND READ BACK OF CRITICAL RESULTS TO JOSELO DOUGLAS VESSEL WELDER-AC AT 1139 ON 01/09/19 BY Shannan Yeboah. Name Value Range Interpretation Description Data Sup porting Code Source(s) Document(s ) Hematocrit 23.6 % [facility] [Volume Hospital Fraction] of Blood by Automated count ID Date Data Source [id number] 01/09/2019 11:26:00 AM [facility] Name Value Range Interpretation Description Data Sup porting Code Source(s) Document(s ) Hemoglobin 8.7 g/dL [facility] [Mass/volume] Hospital in Blood ID Date Data Source [id number] 01/09/2019 11:26:00 AM EST [facility] Name Value Range Interpretation Description Data Sup porting Code Source(s) Document(s ) Erythrocytes 2.88 [facility] [facility] [#/volume] in 10*6/uL Hospital Blood by Automated count ID Date Data Source [id number] 01/09/2019 11:26:00 AM EST [facility] Name Value Range Interpretation Description Data Sup porting Code Source(s) Document(s ) Leukocytes 9.7 [facility] [#/volume] in 10*3/uL Hospital Blood by Automated count ID Date Data Source [id number] 01/09/2019 11:26:00 AM EST [facility] Name Value Range Interpretation Code Description Data Isabel rce(s) Supporting Document(s ) ELLIPTOCYTES OCC [facility] ID Date Data Source [id number] 01/09/2019 11:26:00 AM EST [facility] Name Value Range Interpretation Code Description Data Isabel rce(s) Supporting Document(s ) Cells 100 [facility] Hospital Total [#] in Blood ID Date Data Source [id number] 01/09/2019 11:26:00 AM EST [facility] Name Value Range Interpretation Code Description Data Supporting Source(s) Document(s ) PLATELET NORMAL [facility] Hospital ID Date Data Source [id number] 01/09/2019 11:26:00 AM EST [facility] Name Value Range Interpretation Code Description Data Isabel rce(s) Supporting Document(s ) SICKLE CELLS 1+ [facility] ID Date Data Source [id number] 01/09/2019 11:26:00 AM EST [facility] Name Value Range Interpretation Code Description Data Isabel rce(s) Supporting Document(s ) SCHISTOCYTES 1+ [facility] ID Date Data Source [id number] 01/09/2019 11:26:00 AM [facility] Name Value Range Interpretation Code Description Data Isabel rce(s) Supporting Document(s ) ELLIPTOCYTES OCC [facility] ID Date Data Source [id number] 01/09/2019 11:26:00 AM [facility] Name Value Range Interpretation Code Description Data Isabel rce(s) Supporting Document(s ) TARGET CELLS 3+ [facility] ID Date Data Source [id number] 01/09/2019 11:26:00 AM [facility] Name Value Range Interpretation Code Description Data Isabel rce(s) Supporting Document(s ) TEARDROP OCC [facility] Hospital ID Date Data Source [id number] 01/09/2019 11:26:00 AM [facility] Name Value Range Interpretation Code Description Data Isabel rce(s) Supporting Document(s ) OVALOCYTES 2+ [facility] ID Date Data Source [id number] 01/09/2019 11:26:00 AM [facility] --- 01/09/19 1522 ---POLY previously re ported as: 1+ Name Value Range Interpretation Code Description Data Supporting Source(s) Document(s ) POLYCHROMASIA 2+ [facility] ID Date Data Source [id number] 01/09/2019 11:26:00 AM [facility] Name Value Range Interpretation Code Description Data Isabel rce(s) Supporting Document(s ) MICROCYTOSIS 3+ [facility] ID Date Data Source [id number] 01/09/2019 11:26:00 AM [facility] Name Value Range Interpretation Description Data Sup porting Code Source(s) Document(s ) POIKILOCYTOSIS 3+ [facility] ID Date Data Source [id number] 01/09/2019 11:26:00 AM [facility] Value Range Interpretation Code Description Data Isabel rce(s) Supporting Document(s ) ANISOCYTOSIS 3+ [facility] ID Date Data Source [id number] 01/09/2019 11:26:00 AM [facility] Value Range Interpretation Description Data Sup porting Code Source(s) Document(s ) Eosinophils 0.10 [facility] [facility] [#/volume] in 10*3/uL Hospital Blood by Manual count ID Date Data Source [id number] 01/09/2019 11:26:00 AM [facility] Value Range Interpretation Description Data Sup porting Code Source(s) Document(s ) Monocytes 0.78 [facility] [facility] [#/volume] in 10*3/uL Hospital Blood by Manual count ID Date Data Source [id number] 01/09/2019 11:26:00 AM [facility] Value Range Interpretation Description Data Sup porting Code Source(s) Document(s ) Lymphocytes 0.87 [facility] [facility] [#/volume] in 10*3/uL Hospital Blood by Manual count ID Date Data Source [id number] 01/09/2019 11:26:00 AM [facility] Value Range Interpretation Description Data Sup porting Code Source(s) Document(s ) Neutrophils 7.86 [facility] [facility] [#/volume] in 10*3/uL Hospital Blood by Manual count ID Date Data Source [id number] 01/09/2019 11:26:00 AM [facility] Value Range Interpretation Description Data Sup porting Code Source(s) Document(s ) Nucleated 2 % [facility] erythrocytes/10 Hospital 0 leukocytes [Ratio] in Blood by Manual count ID Date Data Source [id number] 01/09/2019 11:26:00 AM [facility] Value Range Interpretation Description Data Sup porting Code Source(s) Document(s ) Eosinophils/100 1 % [place] [facility] leukocytes in [facility] Blood by Manual count ID Date Data Source [id number] 01/09/2019 11:26:00 AM [facility] Name Value Range Interpretation Description Data Sup porting Code Source(s) Document(s ) Monocytes/100 8 % [facility] [facility] leukocytes in [facility] Blood by Manual count ID Date Data Source [id number] 01/09/2019 11:26:00 AM [facility] Value Range Interpretation Description Data Sup porting Code Source(s) Document(s ) Lymphocytes/100 9 % [place] leukocytes in [facility] Blood by Manual count ID Date Data Source [id number] 01/09/2019 11:26:00 AM [facility] Value Range Interpretation Description Data Sup porting Code Source(s) Document(s ) Neutrophils/100 81 % [facility] [facility] leukocytes in [facility] Blood by Manual count ID Date Data Source [id number] 01/09/2019 11:01:00 AM [facility] Value Range Interpretation Description Data Sup porting Code Source(s) Document(s ) Choriogonadotropin NEGATIVE [facility] ( test) [place] [facility] in Urine Hospital ID Date Data Source [id number] 01/09/2019 11:01:00 AM [facility] Value Range Interpretation Description Data Sup porting Code Source(s) Document(s ) Choriogonadotropin NEGATIVE [facility] ( test) [place] [Presence] in Urine Hospital ID Date Data Source [id number] 01/09/2019 10:59:00 AM EST [facility] Name Value Range Interpretation Code Description Data Isabel rce(s) Supporting Document(s ) URINE 0-5 [facility] CASTS ID Date Data Source [id number] 01/09/2019 10:59:00 AM EST [facility] Name Value Range Interpretation Description Data Sup porting Code Source(s) Document(s ) URINE 2+ [facility] [facility] EPITHELIAL [facility] CELLS ID Date Data Source [id number] 01/09/2019 10:59:00 AM EST [facility] Name Value Range Interpretation Description Data Sup porting Code Source(s) Document(s ) Erythrocytes 0-3 [facility] [#/area] in /[HPF] Hospital Urine sediment by Automated count ID Date Data Source [id number] 01/09/2019 10:59:00 AM EST [facility] Name Value Range Interpretation Description Data Sup porting Code Source(s) Document(s ) Leukocytes 5-10 [facility] [facility] [#/area] in /[HPF] Hospital Urine sediment by Automated count ID Date Data Source [id number] 01/09/2019 10:59:00 AM EST [facility] Name Value Range Interpretation Code Description Data Supporting Source(s) Document(s ) Leukocyte TRACE [facility] esterase Hospital [Presence] in Urine by Test strip ID Date Data Source [id number] 01/09/2019 10:59:00 AM EST [facility] Name Value Range Interpretation Description Data Sup porting Code Source(s) Document(s ) URINE NEGATIVE [facility] Hospital ID Date Data Source [id number] 01/09/2019 10:59:00 AM EST [facility] Name Value Range Interpretation Description Data Sup porting Code Source(s) Document(s ) Erythrocytes NEGATIVE [facility] [#/volume] in Hospital Urine by Test strip ID Date Data Source [id number] 01/09/2019 10:59:00 AM EST [facility] Name Value Range Interpretation Code Description Data Isabel rce(s) Supporting Document(s ) Bilirubin. NEGATIVE [facility] total Hospital [Presence] in Urine by Test strip ID Date Data Source [id number] 01/09/2019 10:59:00 AM EST [facility] Name Value Range Interpretation Description Data Sup porting Code Source(s) Document(s ) Urobilinogen 1.0 [facility] [Units/volume] mg/dL Hospital in Urine by Test strip ID Date Data Source [id number] 01/09/2019 10:59:00 AM EST [facility] Name Value Range Interpretation Description Data Sup porting Code Source(s) Document(s ) Ketones NEGATIVE [facility] [Mass/volume Hospital ] in Urine by Test strip ID Date Data Source [id number] 01/09/2019 10:59:00 AM EST [facility] Name Value Range Interpretation Description Data Sup porting Code Source(s) Document(s ) Glucose NEGATIVE [facility] [Mass/volume Hospital ] in Urine by Test strip ID Date Data Source [id number] 01/09/2019 10:59:00 AM EST [facility] Name Value Range Interpretation Code Description Data Isabel rce(s) Supporting Document(s ) Protein TRACE [facility] [Presence] Hospital in Urine by Test strip ID Date Data Source [id number] 01/09/2019 10:59:00 AM EST [facility] Name Value Range Interpretation Code Description Data Isabel rce(s) Supporting Document(s ) pH of Urine 6.5 [facility] by Test Hospital strip ID Date Data Source [id number] 01/09/2019 10:59:00 AM EST [facility] Name Value Range Interpretation Code Description Data Supporting Source(s) Document(s ) Specific 1.010 [facility] gravity of Hospital Urine by Test strip ID Date Data Source [id number] 01/09/2019 10:59:00 AM EST [facility] Name Value Range Interpretation Description Data Sup porting Code Source(s) Document(s ) Clarity in Urine CLEAR [facility] [facility] by Refractometry Hospital automated ID Date Data Source [id number] 01/09/2019 10:59:00 AM EST [facility] Name Value Range Interpretation Code Description Data Isabel rce(s) Supporting Document(s ) Color of YELLOW [facility] Urine Hospital ID Date Data Source [id number] 01/09/2019 10:59:00 AM EST [facility] Name Value Range Interpretation Description Data Sup porting Code Source(s) Document(s ) Bacteria LACTOBACILLUS [facility] identified SPECIES [place] in Urine by Hospital Culture ID Date Data Source [id number] 01/09/2019 10:59:00 AM EST [facility] Name Value Range Interpretation Code Description Data Isabel rce(s) Supporting Document(s ) URINE 0-5 [facility] HYALINE Hospital CASTS ID Date Data Source [id number] 01/09/2019 10:59:00 AM EST [facility] Name Value Range Interpretation Description Data Sup porting Code Source(s) Document(s ) URINE 2+ [facility] EPITHELIAL Hospital CELLS ID Date Data Source [id number] 01/09/2019 10:59:00 AM EST [facility] Name Value Range Interpretation Description Data Sup porting Code Source(s) Document(s ) Bacteria LACTOBACILLUS [facility] identified SPECIES [place] in Urine by Hospital Culture ID Date Data Source [id number] 01/09/2019 10:59:00 AM EST [facility] Name Value Range Interpretation Code Description Data Isabel rce(s) Supporting Document(s ) URINE 0-5 [facility] HYALINE Hospital CASTS ID Date Data Source [id number] 01/09/2019 10:59:00 AM EST [facility] Name Value Range Interpretation Description Data Sup porting Code Source(s) Document(s ) URINE 2+ [place] EPITHELIAL [facility] CELLS ID Date Data Source [id number] 01/09/2019 10:59:00 AM EST [facility] Name Value Range Interpretation Description Data Sup porting Code Source(s) Document(s ) Erythrocytes 0-3 [place] [#/area] in /[HPF] Hospital Urine sediment by Automated count ID Date Data Source [id number] 01/09/2019 10:59:00 AM EST [facility] Name Value Range Interpretation Description Data Sup porting Code Source(s) Document(s ) Leukocytes 5-10 [place] [facility] [#/area] in /[HPF] Hospital Urine sediment by Automated count ID Date Data Source [id number] 01/09/2019 10:59:00 AM EST [facility] Name Value Range Interpretation Code Description Data Supporting Source(s) Document(s ) Leukocyte TRACE [facility] esterase Hospital [Presence] in Urine by Test strip ID Date Data Source [id number] 01/09/2019 10:59:00 AM EST [facility] Name Value Range Interpretation Description Data Sup porting Code Source(s) Document(s ) URINE NEGATIVE [facility] NITRITES Hospital ID Date Data Source [id number] 01/09/2019 10:59:00 AM EST [facility] Name Value Range Interpretation Description Data Sup porting Code Source(s) Document(s ) Erythrocytes NEGATIVE [facility] [facility] [#/volume] in Hospital Urine by Test strip ID Date Data Source [id number] 01/09/2019 10:59:00 AM EST [facility] Name Value Range Interpretation Code Description Data Isabel rce(s) Supporting Document(s ) Bilirubin. NEGATIVE [facility] total Hospital [Presence] in Urine by Test strip ID Date Data Source [id number] 01/09/2019 10:59:00 AM EST [facility] Name Value Range Interpretation Description Data Sup porting Code Source(s) Document(s ) Urobilinogen 1.0 [facility] [Units/volume] mg/dL Hospital in Urine by Test strip ID Date Data Source [id number] 01/09/2019 10:59:00 AM EST [facility] Name Value Range Interpretation Description Data Sup porting Code Source(s) Document(s ) Ketones NEGATIVE [facility] [Mass/volume Hospital ] in Urine by Test strip ID Date Data Source [id number] 01/09/2019 10:59:00 AM EST [facility] Name Value Range Interpretation Description Data Sup porting Code Source(s) Document(s ) Glucose NEGATIVE [facility] [Mass/volume Hospital ] in Urine by Test strip ID Date Data Source [id number] 01/09/2019 10:59:00 AM EST [facility] Name Value Range Interpretation Code Description Data Isabel rce(s) Supporting Document(s ) Protein TRACE [facility] [Presence] Hospital in Urine by Test strip ID Date Data Source [id number] 01/09/2019 10:59:00 AM EST [facility] Name Value Range Interpretation Code Description Data Isabel rce(s) Supporting Document(s ) pH of Urine 6.5 [facility] by Test Hospital strip ID Date Data Source [id number] 01/09/2019 10:59:00 AM EST [facility] Name Value Range Interpretation Code Description Data Supporting Source(s) Document(s ) Specific 1.010 [facility] gravity of Hospital Urine by Test strip ID Date Data Source [id number] 01/09/2019 10:59:00 AM [facility] Name Value Range Interpretation Description Data Sup porting Code Source(s) Document(s ) Clarity in Urine CLEAR [place] by Refractometry [facility] automated ID Date Data Source [id number] 01/09/2019 10:59:00 AM [facility] Name Value Range Interpretation Code Description Data Isabel rce(s) Supporting Document(s ) Color of YELLOW [facility] Urine Hospital ID Date Data Source [id number] 12/27/2018 12:02:00 PM [facility] TEST PERFORMED BY [email or web address] [facility] [facility] [facility] CHEMILUMINESCENCE METHOD. Name Value Range Interpretation Description Data Sup porting Code Source(s) Document(s ) Troponin < 0.01 [facility] [facility] I.cardiac ng/mL Hospital [Mass/volume ] in Serum or Plasma ID Date Data Source [id number] 12/27/2018 12:02:00 PM [facility] Name Value Range Interpretation Code Description Data Isabel rce(s) Supporting Document(s ) Lipase 19 U/L [facility] [facility] [Enzymatic Hospital activity/vo lume] in Serum or Plasma ID Date Data Source [id number] 12/27/2018 12:02:00 PM [facility] THERAPEUTIC RANGES:UNFRACTIONATED HEPARI N THERAPY: 60-90 SECONDSARGATROBAN THERAPY: 49-99 SECONDS Name Value Range Interpretation Description Data Sup porting Code Source(s) Document(s ) aPTT in 33.6 s [facility] [facility] Platelet poor [facility] plasma by Coagulation assay ID Date Data Source [id number] 12/27/2018 12:02:00 PM [facility] THERAPEUTIC RANGE FOR STANDARD ORALANTIC OAGULANT THERAPY: 2.0-3.0THERAPEUTIC RANGE FOR HIGH DOSE ORALANTICOAGULANT THERAPY (MECHANICAL HEARTVALVE REPLACEMENT): 2.5-3.5 Name Value Range Interpretation Description Data Sup porting Code Source(s) Document(s ) INR in Platelet 1.0 [facility] [facility] poor plasma by Hospital Coagulation assay ID Date Data Source [id number] 12/27/2018 12:02:00 PM [facility] Name Value Range Interpretation Description Data Sup porting Code Source(s) Document(s ) PT panel - 11.5 s [facility] [facility] Platelet poor [facility] plasma by Coagulation assay ID Date Data Source [id number] 12/27/2018 12:02:00 PM [facility] Name Value Range Interpretation Code Description Data Supporting Source(s) Document(s ) Immature 29.9 % [facility] reticulocytes Hospital /Reticulocyte s.total in Blood ID Date Data Source [id number] 12/27/2018 12:02:00 PM [facility] Name Value Range Interpretation Description Data Sup porting Code Source(s) Document(s ) Reticulocytes 0.27 [place] [facility] [#/volume] in 10*6/uL Hospital Blood by Automated count ID Date Data Source [id number] 12/27/2018 12:02:00 PM [facility] Name Value Range Interpretation Description Data Sup porting Code Source(s) Document(s ) Reticulocytes/10 8.70 % [facility] 0 erythrocytes Hospital in Blood by Automated count ID Date Data Source [id number] 12/27/2018 12:02:00 PM [facility] TEST PERFORMED BY [email or web address] [facility] [facility] CHEMILUMINESCENCE METHOD. Name Value Range Interpretation Description Data Sup porting Code Source(s) Document(s ) Troponin < 0.01 [facility] [facility] I.cardiac ng/mL Hospital [Mass/volume ] in Serum or Plasma ID Date Data Source [id number] 12/27/2018 12:02:00 PM [facility] Name Value Range Interpretation Code Description Data Isabel rce(s) Supporting Document(s ) Lipase 19 U/L [facility] [facility] [Enzymatic Hospital activity/vo lume] in Serum or Plasma ID Date Data Source [id number] 12/27/2018 12:02:00 PM [facility] Name Value Range Interpretation Code Description Data Supporting Source(s) Document(s ) Immature 29.9 % [facility] reticulocytes Hospital /Reticulocyte s.total in Blood ID Date Data Source [id number] 12/27/2018 12:02:00 PM [facility] Name Value Range Interpretation Description Data Sup porting Code Source(s) Document(s ) Reticulocytes 0.27 [facility] [facility] [#/volume] in 10*6/uL Hospital Blood by Automated count ID Date Data Source [id number] 12/27/2018 12:02:00 PM [facility] Name Value Range Interpretation Description Data Sup porting Code Source(s) Document(s ) Reticulocytes/10 8.70 % [facility] 0 erythrocytes Hospital in Blood by Automated count ID Date Data Source [id number] 12/27/2018 12:02:00 PM [facility] TEST PERFORMED BY [email or web address] [facility] CHEMILUMINESCENCE METHOD. Name Value Range Interpretation Description Data Sup porting Code Source(s) Document(s ) Troponin < 0.01 [facility] [facility] I.cardiac ng/mL Hospital [Mass/volume ] in Serum or Plasma ID Date Data Source [id number] 12/27/2018 12:02:00 PM [facility] Name Value Range Interpretation Code Description Data Isabel rce(s) Supporting Document(s ) Lipase 19 U/L [facility] [facility] [Enzymatic Hospital activity/vo lume] in Serum or Plasma ID Date Data Source [id number] 12/27/2018 12:02:00 PM [facility] Name Value Range Interpretation Description Data Sup porting Code Source(s) Document(s ) Aspartate 45 U/L [place] aminotransferase [place] [Enzymatic Hospital activity/volume] in Serum or Plasma ID Date Data Source [id number] 12/27/2018 12:02:00 PM EST [facility] Name Value Range Interpretation Description Data Sup porting Code Source(s) Document(s ) Alanine 17 U/L [facility] aminotransferase [place] [Enzymatic Hospital activity/volume] in Serum or Plasma ID Date Data Source [id number] 12/27/2018 12:02:00 PM [facility] Name Value Range Interpretation Description Data Sup porting Code Source(s) Document(s ) Alkaline 155 U/L [facility] [facility] phosphatase Hospital [Enzymatic activity/volume ] in Serum or Plasma ID Date Data Source [id number] 12/27/2018 12:02:00 PM [facility] Name Value Range Interpretation Description Data Sup porting Code Source(s) Document(s ) Bilirubin.t 2.4 mg/dL [facility] [Mass/volum e] in Serum or Plasma ID Date Data Source [id number] 12/27/2018 12:02:00 PM [facility] Name Value Range Interpretation Code Description Data Isabel rce(s) Supporting Document(s ) [facility] Serum or Plasma ID Date Data Source [id number] 12/27/2018 12:02:00 PM [facility] Name Value Range Interpretation Description Data Sup porting Code Source(s) Document(s ) Albumin 4.0 g/dL [facility] [facility] [Mass/volume Hospital ] in Serum or Plasma ID Date Data Source [id number] 12/27/2018 12:02:00 PM [facility] Name Value Range Interpretation Description Data Sup porting Code Source(s) Document(s ) Protein 7.8 g/dL [facility] [Mass/volume Hospital ] in Serum or Plasma ID Date Data Source [id number] 12/27/2018 12:02:00 PM EST [facility] Name Value Range Interpretation Description Data Sup porting Code Source(s) Document(s ) Calcium 8.7 mg/dL [facility] [Mass/volume Hospital ] in Serum or Plasma ID Date Data Source [id number] 12/27/2018 12:02:00 PM EST [facility] Name Value Range Interpretation Code Description Data Isabel rce(s) Supporting Document(s ) Urea 16.7 [facility] nitrogen/Cre Hospital atinine [Mass Ratio] in Serum or Plasma ID Date Data Source [id number] 12/27/2018 12:02:00 PM EST [facility] Name Value Range Interpretation Description Data Sup porting Code Source(s) Document(s ) Creatinine 0.6 mg/dL [facility] [facility] [Mass/volume] Hospital in Serum or Plasma ID Date Data Source [id number] 12/27/2018 12:02:00 PM EST [facility] Name Value Range Interpretation Description Data Sup porting Code Source(s) Document(s ) Urea 10 mg/dL [facility] nitrogen Hospital [Mass/volume ] in Serum or Plasma ID Date Data Source [id number] 12/27/2018 12:02:00 PM EST [facility] Name Value Range Interpretation Code Description Data Isabel rce(s) Supporting Document(s ) Anion gap in 11 [facility] Serum or Hospital Plasma ID Date Data Source [id number] 12/27/2018 12:02:00 PM EST [facility] Name Value Range Interpretation Description Data Sup porting Code Source(s) Document(s ) Carbon 27 mmol/L [facility] [facility] dioxide, Hospital total [Moles/volu me] in Serum or Plasma ID Date Data Source [id number] 12/27/2018 12:02:00 PM [facility] Name Value Range Interpretation Description Data Sup porting Code Source(s) Document(s ) Chloride 106 [facility] [facility] [Moles/volum mmol/L Hospital e] in Serum or Plasma ID Date Data Source [id number] 12/27/2018 12:02:00 PM [facility] Name Value Range Interpretation Description Data Sup porting Code Source(s) Document(s ) Potassium 4.2 [facility] [facility] [Moles/volume mmol/L Hospital ] in Serum or Plasma ID Date Data Source [id number] 12/27/2018 12:02:00 PM [facility] Name Value Range Interpretation Description Data Sup porting Code Source(s) Document(s ) Sodium 140 mmol/L [facility] [facility] [Moles/volu Hospital me] in Serum or Plasma ID Date Data Source [id number] 12/27/2018 12:02:00 PM [facility] Name Value Range Interpretation Description Data Sup porting Code Source(s) Document(s ) Glucose 102 mg/dL [facility] [Mass/volume Hospital ] in Serum or Plasma ID Date Data Source [id number] 12/27/2018 12:02:00 PM [facility] THERAPEUTIC RANGES:UNFRACTIONATED HEPARI N THERAPY: 60-90 SECONDSARGATROBAN THERAPY: 49-99 SECONDS Name Value Range Interpretation Description Data Sup porting Code Source(s) Document(s ) aPTT in 33.6 s [place] Platelet poor [facility] plasma by Coagulation assay ID Date Data Source [id number] 12/27/2018 12:02:00 PM [facility] THERAPEUTIC RANGE FOR STANDARD ORALANTIC OAGULANT THERAPY: 2.0-3.0THERAPEUTIC RANGE FOR HIGH DOSE ORALANTICOAGULANT THERAPY (MECHANICAL HEARTVALVE REPLACEMENT): 2.5-3.5 Name Value Range Interpretation Description Data Sup porting Code Source(s) Document(s ) INR in Platelet 1.0 [facility] [facility] poor plasma by Hospital Coagulation assay ID Date Data Source [id number] 12/27/2018 12:02:00 PM EST [facility] Name Value Range Interpretation Description Data Sup porting Code Source(s) Document(s ) PT panel - 11.5 s [facility] [facility] Platelet poor Hospital plasma by Coagulation assay ID Date Data Source [id number] 12/27/2018 12:02:00 PM EST [facility] Name Value Range Interpretation Code Description Data Supporting Source(s) Document(s ) Immature 29.9 % [facility] [facility] reticulocytes Hospital /Reticulocyte s.total in Blood ID Date Data Source [id number] 12/27/2018 12:02:00 PM [facility] Name Value Range Interpretation Description Data Sup porting Code Source(s) Document(s ) Reticulocytes 0.27 [place] [facility] [#/volume] in 10*6/uL Hospital Blood by Automated count ID Date Data Source [id number] 12/27/2018 12:02:00 PM [facility] Name Value Range Interpretation Description Data Sup porting Code Source(s) Document(s ) Reticulocytes/10 8.70 % [facility] [facility] 0 erythrocytes Hospital in Blood by Automated count ID Date Data Source [id number] 12/27/2018 12:02:00 PM [facility] Name Value Range Interpretation Description Data Sup porting Code Source(s) Document(s ) Platelet mean 10.4 fL [facility] volume Hospital [Entitic volume] in Blood by Automated count ID Date Data Source [id number] 12/27/2018 12:02:00 PM EST [facility] Name Value Range Interpretation Description Data Sup porting Code Source(s) Document(s ) Platelets 246 [place] [#/volume] in 10*3/uL Hospital Blood by Automated count ID Date Data Source [id number] 12/27/2018 12:02:00 PM [facility] Value Range Interpretation Description Data Sup porting Code Source(s) Document(s ) Erythrocyte 18.3 % [facility] [facility] distribution Hospital width [Ratio] by Automated count ID Date Data Source [id number] 12/27/2018 12:02:00 PM [facility] Value Range Interpretation Description Data Sup porting Code Source(s) Document(s ) Erythrocyte mean 37.1 [facility] [facility] corpuscular g/dL Hospital hemoglobin concentration [Mass/volume] by Automated count ID Date Data Source [id number] 12/27/2018 12:02:00 PM [facility] Value Range Interpretation Description Data Sup porting Code Source(s) Document(s ) Erythrocyte 29.6 pg [facility] corpuscular hemoglobin [Entitic mass] by Automated count ID Date Data Source [id number] 12/27/2018 12:02:00 PM [facility] Value Range Interpretation Description Data Sup porting Code Source(s) Document(s ) Erythrocyte 79.8 fL [facility] corpuscular volume [Entitic volume] by Automated count ID Date Data Source [id number] 12/27/2018 12:02:00 PM [facility] Value Range Interpretation Description Data Sup porting Code Source(s) Document(s ) Hematocrit 24.5 % [facility] [facility] [Volume Hospital Fraction] of Blood by Automated count ID Date Data Source [id number] 12/27/2018 12:02:00 PM [facility] Value Range Interpretation Description Data Sup porting Code Source(s) Document(s ) Hemoglobin 9.1 g/dL [facility] [facility] [Mass/volume] Hospital in Blood ID Date Data Source [id number] 12/27/2018 12:02:00 PM [facility] Name Value Range Interpretation Description Data Sup porting Code Source(s) Document(s ) Erythrocytes 3.07 [place] [#/volume] in 10*6/uL Hospital Blood by Automated count ID Date Data Source [id number] 12/27/2018 12:02:00 PM [facility] Name Value Range Interpretation Description Data Sup porting Code Source(s) Document(s ) Leukocytes 7.3 [facility] [facility] [#/volume] in 10*3/uL Hospital Blood by Automated count ID Date Data Source [id number] 12/27/2018 11:43:00 AM [facility] Name Value Range Interpretation Description Data Sup porting Code Source(s) Document(s ) Throat NORMAL EDITH, [place] Culture NEGATIVE FOR Hospital BETA HEMOLYTIC STREP, GROUP A ID Date Data Source [id number] 12/27/2018 11:43:00 AM [facility] Name Value Range Interpretation Description Data Sup porting Code Source(s) Document(s ) Throat NORMAL EDITH, [place] Culture NEGATIVE FOR Hospital BETA HEMOLYTIC STREP, GROUP A ID Date Data Source [id number] 12/27/2018 11:36:00 AM [facility] Name Value Range Interpretation Description Data Sup porting Code Source(s) Document(s ) Choriogonadotropin NEGATIVE [facility] ( test) [place] [Presence] in Urine Hospital ID Date Data Source [id number] 12/27/2018 11:32:00 AM [facility] Value Range Interpretation Code Description Data Isabel rce(s) Supporting Document(s ) URINE 0-5 [facility] CASTS ID Date Data Source [id number] 12/27/2018 11:32:00 AM EST [facility] Name Value Range Interpretation Description Data Sup porting Code Source(s) Document(s ) URINE 1+ [facility] EPITHELIAL Hospital CELLS ID Date Data Source [id number] 12/27/2018 11:32:00 AM EST [facility] Name Value Range Interpretation Description Data Sup porting Code Source(s) Document(s ) Erythrocytes 3-5 [place] [facility] [#/area] in /[HPF] Hospital Urine sediment by Automated count ID Date Data Source [id number] 12/27/2018 11:32:00 AM [facility] Name Value Range Interpretation Description Data Sup porting Code Source(s) Document(s ) Leukocytes 0-3 [facility] [facility] [#/area] in /[HPF] Hospital Urine sediment by Automated count ID Date Data Source [id number] 12/27/2018 11:32:00 AM [facility] Name Value Range Interpretation Description Data Sup porting Code Source(s) Document(s ) Leukocyte NEGATIVE [facility] [facility] esterase Hospital [Presence] in Urine by Test strip ID Date Data Source [id number] 12/27/2018 11:32:00 AM [facility] Name Value Range Interpretation Description Data Sup porting Code Source(s) Document(s ) URINE NEGATIVE [facility] [facility] NITRITES Hospital ID Date Data Source [id number] 12/27/2018 11:32:00 AM [facility] Name Value Range Interpretation Description Data Sup porting Code Source(s) Document(s ) Erythrocytes TRACE [facility] [facility] [#/volume] in Hospital Urine by Test strip ID Date Data Source [id number] 12/27/2018 11:32:00 AM EST [facility] Name Value Range Interpretation Code Description Data Isabel rce(s) Supporting Document(s ) Bilirubin. NEGATIVE [facility] total Hospital [Presence] in Urine by Test strip ID Date Data Source [id number] 12/27/2018 11:32:00 AM EST [facility] Name Value Range Interpretation Description Data Sup porting Code Source(s) Document(s ) Urobilinogen 1.0 [facility] [facility] [Units/volume] mg/dL Hospital in Urine by Test strip ID Date Data Source [id number] 12/27/2018 11:32:00 AM EST [facility] Name Value Range Interpretation Description Data Sup porting Code Source(s) Document(s ) Ketones NEGATIVE [facility] [Mass/volume Hospital ] in Urine by Test strip ID Date Data Source [id number] 12/27/2018 11:32:00 AM EST [facility] Name Value Range Interpretation Description Data Sup porting Code Source(s) Document(s ) Glucose NEGATIVE [facility] [Mass/volume Hospital ] in Urine by Test strip ID Date Data Source [id number] 12/27/2018 11:32:00 AM EST [facility] Name Value Range Interpretation Code Description Data Isabel rce(s) Supporting Document(s ) Protein TRACE [facility] [facility] [Presence] Hospital in Urine by Test strip ID Date Data Source [id number] 12/27/2018 11:32:00 AM EST [facility] Name Value Range Interpretation Code Description Data Isabel rce(s) Supporting Document(s ) pH of Urine 6.5 [facility] [facility] by Test Hospital strip ID Date Data Source [id number] 12/27/2018 11:32:00 AM EST [facility] Name Value Range Interpretation Code Description Data Supporting Source(s) Document(s ) Specific 1.011 [facility] [facility] gravity of Hospital Urine by Test strip ID Date Data Source [id number] 12/27/2018 11:32:00 AM EST [facility] Name Value Range Interpretation Description Data Sup porting Code Source(s) Document(s ) Clarity in Urine CLEAR [facility] [facility] by Refractometry Hospital automated ID Date Data Source [id number] 12/27/2018 11:32:00 AM [facility] Name Value Range Interpretation Code Description Data Isabel rce(s) Supporting Document(s ) Color of YELLOW [facility] [facility] Urine Hospital ID Date Data Source [id number] 12/22/2018 08:09:00 PM [facility] Value Range Interpretation Description Data Sup porting Code Source(s) Document(s ) Immature 0.02 [facility] [facility] granulocytes 10*3/uL Hospital [#/volume] in Blood by Automated count ID Date Data Source [id number] 12/22/2018 08:09:00 PM [facility] Name Value Range Interpretation Description Data Sup porting Code Source(s) Document(s ) Basophils 0.03 [place] [#/volume] in 10*3/uL Hospital Blood by Automated count ID Date Data Source [id number] 12/22/2018 08:09:00 PM [facility] Name Value Range Interpretation Description Data Sup porting Code Source(s) Document(s ) Eosinophils 0.04 [place] [#/volume] in 10*3/uL Hospital Blood by Automated count ID Date Data Source [id number] 12/22/2018 08:09:00 PM [facility] Name Value Range Interpretation Description Data Sup porting Code Source(s) Document(s ) Monocytes 0.95 [place] [#/volume] in 10*3/uL Hospital Blood by Automated count ID Date Data Source [id number] 12/22/2018 08:09:00 PM [facility] Name Value Range Interpretation Description Data Sup porting Code Source(s) Document(s ) Lymphocytes 2.54 [place] [#/volume] in 10*3/uL [facility] Blood by Automated count ID Date Data Source [id number] 12/22/2018 08:09:00 PM EST [facility] Value Range Interpretation Description Data Sup porting Code Source(s) Document(s ) Neutrophils 2.70 [place] [#/volume] in 10*3/uL [facility] Blood by Automated count ID Date Data Source [id number] 12/22/2018 08:09:00 PM EST [facility] Value Range Interpretation Description Data Sup porting Code Source(s) Document(s ) Nucleated 1.4 % [place] erythrocytes/10 Hospital 0 leukocytes [Ratio] in Blood by Automated count ID Date Data Source [id number] 12/22/2018 08:09:00 PM [facility] Value Range Interpretation Description Data Sup porting Code Source(s) Document(s ) Immature 0.3 % [place] granulocytes/10 Hospital 0 leukocytes in Blood by Automated count ID Date Data Source [id number] 12/22/2018 08:09:00 PM [facility] Value Range Interpretation Description Data Sup porting Code Source(s) Document(s ) Basophils/100 0.5 % [place] leukocytes in Hospital Blood by Automated count ID Date Data Source [id number] 12/22/2018 08:09:00 PM [facility] Value Range Interpretation Description Data Sup porting Code Source(s) Document(s ) Eosinophils/100 0.6 % [place] leukocytes in Hospital Blood by Automated count ID Date Data Source [id number] 12/22/2018 08:09:00 PM [facility] Value Range Interpretation Description Data Sup porting Code Source(s) Document(s ) Monocytes/100 15.1 % [place] leukocytes in Hospital Blood by Automated count ID Date Data Source [id number] 12/22/2018 08:09:00 PM EST [facility] Name Value Range Interpretation Description Data Sup porting Code Source(s) Document(s ) Lymphocytes/10 40.4 % [place] 0 leukocytes Hospital in Blood by Automated count ID Date Data Source [id number] 12/22/2018 08:09:00 PM EST [facility] Name Value Range Interpretation Description Data Sup porting Code Source(s) Document(s ) Neutrophils/10 43.1 % [place] 0 leukocytes Hospital in Blood by Automated count ID Date Data Source [id number] 12/22/2018 08:09:00 PM [facility] Name Value Range Interpretation Code Description Data Supporting Source(s) Document(s ) NUCLEATED RBCS 1.4 % [place] (AUTO Hospital DIFF%)DIS ID Date Data Source [id number] 12/22/2018 08:09:00 PM [facility] Name Value Range Interpretation Description Data Sup porting Code Source(s) Document(s ) Differential AUTOMATED [place] cell count Hospital method - Blood ID Date Data Source [id number] 12/22/2018 08:09:00 PM [facility] Name Value Range Interpretation Description Data Sup porting Code Source(s) Document(s ) Immature 0.02 [place] granulocytes 10*3/uL Hospital [#/volume] in Blood by Automated count ID Date Data Source [id number] 12/22/2018 08:09:00 PM [facility] Name Value Range Interpretation Description Data Sup porting Code Source(s) Document(s ) Basophils 0.03 [place] [#/volume] in 10*3/uL Hospital Blood by Automated count ID Date Data Source [id number] 12/22/2018 08:09:00 PM EST [facility] Name Value Range Interpretation Description Data Sup porting Code Source(s) Document(s ) Eosinophils 0.04 [place] [#/volume] in 10*3/uL Hospital Blood by Automated count ID Date Data Source [id number] 12/22/2018 08:09:00 PM EST [facility] Value Range Interpretation Description Data Sup porting Code Source(s) Document(s ) Monocytes 0.95 [place] [#/volume] in 10*3/uL Hospital Blood by Automated count ID Date Data Source [id number] 12/22/2018 08:09:00 PM EST [facility] Value Range Interpretation Description Data Sup porting Code Source(s) Document(s ) Lymphocytes 2.54 [place] [#/volume] in 10*3/uL Hospital Blood by Automated count ID Date Data Source [id number] 12/22/2018 08:09:00 PM [facility] Value Range Interpretation Description Data Sup porting Code Source(s) Document(s ) Neutrophils 2.70 [place] [#/volume] in 10*3/uL [facility] Blood by Automated count ID Date Data Source [id number] 12/22/2018 08:09:00 PM [facility] Value Range Interpretation Description Data Sup porting Code Source(s) Document(s ) Nucleated 1.4 % [place] erythrocytes/10 Hospital 0 leukocytes [Ratio] in Blood by Automated count ID Date Data Source [id number] 12/22/2018 08:09:00 PM [facility] Name Value Range Interpretation Description Data Sup porting Code Source(s) Document(s ) Immature 0.3 % [place] granulocytes/10 Hospital 0 leukocytes in Blood by Automated count ID Date Data Source [id number] 12/22/2018 08:09:00 PM EST [facility] Name Value Range Interpretation Description Data Sup porting Code Source(s) Document(s ) Basophils/100 0.5 % [place] leukocytes in Hospital Blood by Automated count ID Date Data Source [id number] 12/22/2018 08:09:00 PM EST [facility] Name Value Range Interpretation Description Data Sup porting Code Source(s) Document(s ) Eosinophils/100 0.6 % [place] leukocytes in Hospital Blood by Automated count ID Date Data Source [id number] 12/22/2018 08:09:00 PM [facility] Name Value Range Interpretation Description Data Sup porting Code Source(s) Document(s ) Monocytes/100 15.1 % [place] leukocytes in Hospital Blood by Automated count ID Date Data Source [id number] 12/22/2018 08:09:00 PM EST [facility] Name Value Range Interpretation Description Data Sup porting Code Source(s) Document(s ) Lymphocytes/10 40.4 % [place] 0 leukocytes Hospital in Blood by Automated count ID Date Data Source [id number] 12/22/2018 08:09:00 PM [facility] Name Value Range Interpretation Description Data Sup porting Code Source(s) Document(s ) Neutrophils/10 43.1 % [place] 0 leukocytes Hospital in Blood by Automated count ID Date Data Source [id number] 12/22/2018 08:09:00 PM [facility] Name Value Range Interpretation Description Data Sup porting Code Source(s) Document(s ) Creatinine 0.7 mg/dL [place] [Mass/volume] Hospital in Serum or Plasma ID Date Data Source [id number] 12/22/2018 08:09:00 PM [facility] Name Value Range Interpretation Description Data Sup porting Code Source(s) Document(s ) Urea 11 mg/dL [place] nitrogen Hospital [Mass/volume ] in Serum or Plasma ID Date Data Source [id number] 12/22/2018 08:09:00 PM EST [facility] Name Value Range Interpretation Code Description Data Isabel rce(s) Supporting Document(s ) Anion gap in 9 [place] Serum or Hospital Plasma ID Date Data Source [id number] 12/22/2018 08:09:00 PM EST [facility] Name Value Range Interpretation Description Data Sup porting Code Source(s) Document(s ) Carbon 28 mmol/L [place] dioxide, Hospital total [Moles/volu me] in Serum or Plasma ID Date Data Source [id number] 12/22/2018 08:09:00 PM EST [facility] Name Value Range Interpretation Description Data Sup porting Code Source(s) Document(s ) Chloride 106 [place] [Moles/volum mmol/L Hospital e] in Serum or Plasma ID Date Data Source [id number] 12/22/2018 08:09:00 PM EST [facility] Name Value Range Interpretation Description Data Sup porting Code Source(s) Document(s ) Potassium 3.7 [place] [Moles/volume mmol/L Hospital ] in Serum or Plasma ID Date Data Source [id number] 12/22/2018 08:09:00 PM EST [facility] Name Value Range Interpretation Description Data Sup porting Code Source(s) Document(s ) Sodium 139 mmol/L [place] [Moles/volu Hospital me] in Serum or Plasma ID Date Data Source [id number] 12/22/2018 08:09:00 PM EST [facility] Name Value Range Interpretation Description Data Sup porting Code Source(s) Document(s ) Glucose 124 mg/dL [facility] [Mass/volume Hospital ] in Serum or Plasma ID Date Data Source [id number] 12/22/2018 08:09:00 PM [facility] Name Value Range Interpretation Description Data Sup porting Code Source(s) Document(s ) Reticulocytes 0.17 [place] [#/volume] in 10*6/uL Hospital Blood by Automated count ID Date Data Source [id number] 12/22/2018 08:09:00 PM [facility] Name Value Range Interpretation Description Data Sup porting Code Source(s) Document(s ) Reticulocytes/10 5.80 % [place] 0 erythrocytes Hospital in Blood by Automated count ID Date Data Source [id number] 12/22/2018 08:09:00 PM [facility] Value Range Interpretation Code Description Data Supporting Source(s) Document(s ) NUCLEATED RBCS 1.4 % [place] (AUTO Hospital DIFF%)DIS ID Date Data Source [id number] 12/22/2018 08:09:00 PM [facility] Name Value Range Interpretation Description Data Sup porting Code Source(s) Document(s ) Differential AUTOMATED [place] cell count [facility] method - Blood ID Date Data Source [id number] 12/22/2018 08:09:00 PM [facility] Name Value Range Interpretation Description Data Sup porting Code Source(s) Document(s ) Immature 0.02 [place] granulocytes 10*3/uL Hospital [#/volume] in Blood by Automated count ID Date Data Source [id number] 12/22/2018 08:09:00 PM [facility] Name Value Range Interpretation Description Data Sup porting Code Source(s) Document(s ) Basophils 0.03 [place] [#/volume] in 10*3/uL Hospital Blood by Automated count ID Date Data Source [id number] 12/22/2018 08:09:00 PM [facility] Name Value Range Interpretation Description Data Sup porting Code Source(s) Document(s ) Eosinophils 0.04 [place] [#/volume] in 10*3/uL Hospital Blood by Automated count ID Date Data Source [id number] 12/22/2018 08:09:00 PM EST [facility] Name Value Range Interpretation Description Data Sup porting Code Source(s) Document(s ) Monocytes 0.95 [place] [#/volume] in 10*3/uL Hospital Blood by Automated count ID Date Data Source [id number] 12/22/2018 08:09:00 PM EST [facility] Value Range Interpretation Description Data Sup porting Code Source(s) Document(s ) Lymphocytes 2.54 [place] [#/volume] in 10*3/uL Hospital Blood by Automated count ID Date Data Source [id number] 12/22/2018 08:09:00 PM EST [facility] Value Range Interpretation Description Data Sup porting Code Source(s) Document(s ) Neutrophils 2.70 [place] [#/volume] in 10*3/uL Hospital Blood by Automated count ID Date Data Source [id number] 12/22/2018 08:09:00 PM EST [facility] Value Range Interpretation Description Data Sup porting Code Source(s) Document(s ) Nucleated 1.4 % [place] erythrocytes/10 Hospital 0 leukocytes [Ratio] in Blood by Automated count ID Date Data Source [id number] 12/22/2018 08:09:00 PM [facility] Value Range Interpretation Description Data Sup porting Code Source(s) Document(s ) Immature 0.3 % [place] granulocytes/10 Hospital 0 leukocytes in Blood by Automated count ID Date Data Source [id number] 12/22/2018 08:09:00 PM [facility] Value Range Interpretation Description Data Sup porting Code Source(s) Document(s ) Basophils/100 0.5 % [place] leukocytes in Hospital Blood by Automated count ID Date Data Source [id number] 12/22/2018 08:09:00 PM EST [facility] Name Value Range Interpretation Description Data Sup porting Code Source(s) Document(s ) Eosinophils/100 0.6 % [place] leukocytes in Hospital Blood by Automated count ID Date Data Source [id number] 12/22/2018 08:09:00 PM EST [facility] Name Value Range Interpretation Description Data Sup porting Code Source(s) Document(s ) Monocytes/100 15.1 % [place] leukocytes in Hospital Blood by Automated count ID Date Data Source [id number] 12/22/2018 08:09:00 PM EST [facility] Name Value Range Interpretation Description Data Sup porting Code Source(s) Document(s ) Lymphocytes/10 40.4 % [place] 0 leukocytes Hospital in Blood by Automated count ID Date Data Source [id number] 12/22/2018 08:09:00 PM EST [facility] Name Value Range Interpretation Description Data Sup porting Code Source(s) Document(s ) Neutrophils/10 43.1 % [place] 0 leukocytes Hospital in Blood by Automated count ID Date Data Source [id number] 12/22/2018 08:09:00 PM EST [facility] Name Value Range Interpretation Description Data Sup porting Code Source(s) Document(s ) Platelet mean 9.8 fL [place] volume Hospital [Entitic volume] in Blood by Automated count ID Date Data Source [id number] 12/22/2018 08:09:00 PM EST [facility] Name Value Range Interpretation Description Data Sup porting Code Source(s) Document(s ) Platelets 233 [place] [#/volume] in 10*3/uL Hospital Blood by Automated count ID Date Data Source [id number] 12/22/2018 08:09:00 PM [facility] Value Range Interpretation Description Data Sup porting Code Source(s) Document(s ) Erythrocyte 21.1 % [facility] Hospital width [Ratio] by Automated count ID Date Data Source [id number] 12/22/2018 08:09:00 PM [facility] Value Range Interpretation Description Data Sup porting Code Source(s) Document(s ) Erythrocyte mean 35.0 [place] corpuscular g/dL Hospital hemoglobin concentration [Mass/volume] by Automated count ID Date Data Source [id number] 12/22/2018 08:09:00 PM [facility] Value Range Interpretation Description Data Sup porting Code Source(s) Document(s ) Erythrocyte 29.4 pg [facility] corpuscular hemoglobin [Entitic mass] by Automated count ID Date Data Source [id number] 12/22/2018 08:09:00 PM [facility] Value Range Interpretation Description Data Sup porting Code Source(s) Document(s ) Erythrocyte 84.1 fL [facility] corpuscular volume [Entitic volume] by Automated count ID Date Data Source [id number] 12/22/2018 08:09:00 PM [facility] Value Range Interpretation Description Data Sup porting Code Source(s) Document(s ) Hematocrit 24.3 % [place] [Volume Hospital Fraction] of Blood by Automated count ID Date Data Source [id number] 12/22/2018 08:09:00 PM [facility] Value Range Interpretation Description Data Sup porting Code Source(s) Document(s ) Hemoglobin 8.5 g/dL [place] [Mass/volume] Hospital in Blood ID Date Data Source [id number] 12/22/2018 08:09:00 PM [facility] Name Value Range Interpretation Description Data Sup porting Code Source(s) Document(s ) Erythrocytes 2.89 [place] [#/volume] in 10*6/uL Hospital Blood by Automated count ID Date Data Source [id number] 12/22/2018 08:09:00 PM [facility] Name Value Range Interpretation Description Data Sup porting Code Source(s) Document(s ) Leukocytes 6.3 [place] [#/volume] in 10*3/uL Hospital Blood by Automated count ID Date Data Source [id number] 12/22/2018 08:09:00 PM [facility] TEST PERFORMED BY [email or web address] [facility] CHEMILUMINESCENCE METHOD. Name Value Range Interpretation Description Data Sup porting Code Source(s) Document(s ) Troponin < 0.01 [place] I.cardiac ng/mL Hospital [Mass/volume ] in Serum or Plasma ID Date Data Source [id number] 12/22/2018 08:09:00 PM [facility] Name Value Range Interpretation Description Data Sup porting Code Source(s) Document(s ) Aspartate 50 U/L [facility] amin[facility] [place] [Enzymatic Hospital activity/volume] in Serum or Plasma ID Date Data Source [id number] 12/22/2018 08:09:00 PM [facility] Name Value Range Interpretation Description Data Sup porting Code Source(s) Document(s ) Alanine 17 U/L [facility] aminotransferase [place] [Enzymatic Hospital activity/volume] in Serum or Plasma ID Date Data Source [id number] 12/22/2018 08:09:00 PM [facility] Name Value Range Interpretation Description Data Sup porting Code Source(s) Document(s ) Alkaline 115 U/L [place] phosphatase Hospital [Enzymatic activity/volume ] in Serum or Plasma ID Date Data Source [id number] 12/22/2018 08:09:00 PM EST [facility] Name Value Range Interpretation Description Data Sup porting Code Source(s) Document(s ) Bilirubin.t 2.1 mg/dL [facility] [Mass/volum e] in Serum or Plasma ID Date Data Source [id number] 12/22/2018 08:09:00 PM EST [facility] Name Value Range Interpretation Code Description Data Isabel rce(s) Supporting Document(s ) Albumin/Glob 1.2 [place] ulin [Mass Hospital Ratio] in Serum or Plasma ID Date Data Source [id number] 12/22/2018 08:09:00 PM EST [facility] Name Value Range Interpretation Description Data Sup porting Code Source(s) Document(s ) Albumin 3.9 g/dL [place] [Mass/volume Hospital ] in Serum or Plasma ID Date Data Source [id number] 12/22/2018 08:09:00 PM EST [facility] Name Value Range Interpretation Description Data Sup porting Code Source(s) Document(s ) Protein 7.2 g/dL [place] [Mass/volume Hospital ] in Serum or Plasma ID Date Data Source [id number] 12/22/2018 08:09:00 PM EST [facility] Name Value Range Interpretation Description Data Sup porting Code Source(s) Document(s ) Calcium 8.0 mg/dL [place] [Mass/volume Hospital ] in Serum or Plasma ID Date Data Source [id number] 12/22/2018 08:09:00 PM EST [facility] Name Value Range Interpretation Code Description Data Isabel rce(s) Supporting Document(s ) Urea 15.7 [place] nitrogen/Cre Hospital atinine [Mass Ratio] in Serum or Plasma ID Date Data Source [id number] 12/15/2018 02:20:00 AM [facility] Name Value Range Interpretation Code Description Data Isabel rce(s) Supporting Document(s ) URINE 0-5 [place] HYALINE Hospital CASTS ID Date Data Source [id number] 12/15/2018 02:20:00 AM [facility] Name Value Range Interpretation Description Data Sup porting Code Source(s) Document(s ) URINE 1+ [place] EPITHELIAL [facility] CELLS ID Date Data Source [id number] 12/15/2018 02:20:00 AM [facility] Name Value Range Interpretation Description Data Sup porting Code Source(s) Document(s ) Erythrocytes 3-5 [place] [#/area] in /[HPF] Hospital Urine sediment by Automated count ID Date Data Source [id number] 12/15/2018 02:20:00 AM [facility] Name Value Range Interpretation Description Data Sup porting Code Source(s) Document(s ) Leukocytes 0-3 [place] [#/area] in /[HPF] Hospital Urine sediment by Automated count ID Date Data Source [id number] 12/15/2018 02:20:00 AM [facility] Name Value Range Interpretation Code Description Data Supporting Source(s) Document(s ) Leukocyte TRACE [facility] esterase Hospital [Presence] in Urine by Test strip ID Date Data Source [id number] 12/15/2018 02:20:00 AM [facility] Name Value Range Interpretation Description Data Sup porting Code Source(s) Document(s ) URINE NEGATIVE [place] NITRITES Hospital ID Date Data Source [id number] 12/15/2018 02:20:00 AM [facility] Name Value Range Interpretation Description Data Sup porting Code Source(s) Document(s ) Erythrocytes TRACE [place] [#/volume] in Hospital Urine by Test strip ID Date Data Source [id number] 12/15/2018 02:20:00 AM EST [facility] Name Value Range Interpretation Code Description Data Isabel rce(s) Supporting Document(s ) Bilirubin. NEGATIVE [facility] [facility] total Hospital [Presence] in Urine by Test strip ID Date Data Source [id number] 12/15/2018 02:20:00 AM EST [facility] Name Value Range Interpretation Description Data Sup porting Code Source(s) Document(s ) Urobilinogen 1.0 [place] [Units/volume] mg/dL Hospital in Urine by Test strip ID Date Data Source [id number] 12/15/2018 02:20:00 AM EST [facility] Name Value Range Interpretation Description Data Sup porting Code Source(s) Document(s ) Ketones NEGATIVE [facility] [facility] [Mass/volume Hospital ] in Urine by Test strip ID Date Data Source [id number] 12/15/2018 02:20:00 AM EST [facility] Name Value Range Interpretation Description Data Sup porting Code Source(s) Document(s ) Glucose NEGATIVE [place] [Mass/volume Hospital ] in Urine by Test strip ID Date Data Source [id number] 12/15/2018 02:20:00 AM EST [facility] Name Value Range Interpretation Code Description Data Isabel rce(s) Supporting Document(s ) Protein TRACE [facility] [facility] [Presence] Hospital in Urine by Test strip ID Date Data Source [id number] 12/15/2018 02:20:00 AM EST [facility] Name Value Range Interpretation Code Description Data Isabel rce(s) Supporting Document(s ) pH of Urine 6.5 [place] by Test Hospital strip ID Date Data Source [id number] 12/15/2018 02:20:00 AM [facility] Name Value Range Interpretation Code Description Data Supporting Source(s) Document(s ) Specific 1.011 [place] gravity of Hospital Urine by Test strip ID Date Data Source [id number] 12/15/2018 02:20:00 AM [facility] Name Value Range Interpretation Description Data Sup porting Code Source(s) Document(s ) Clarity in Urine CLEAR [place] by Refractometry Hospital automated ID Date Data Source [id number] 12/15/2018 02:20:00 AM [facility] Name Value Range Interpretation Code Description Data Isabel rce(s) Supporting Document(s ) Color of YELLOW [facility] Urine Hospital ID Date Data Source [id number] 12/15/2018 02:20:00 AM [facility] Name Value Range Interpretation Code Description Data Isabel rce(s) Supporting Document(s ) URINE 0-5 [place] HYALINE [facility] CASTS ID Date Data Source [id number] 12/15/2018 02:20:00 AM [facility] Name Value Range Interpretation Description Data Sup porting Code Source(s) Document(s ) URINE 1+ [place] EPITHELIAL [facility] CELLS ID Date Data Source [id number] 12/15/2018 02:20:00 AM [facility] Name Value Range Interpretation Description Data Sup porting Code Source(s) Document(s ) Erythrocytes 3-5 [place] [#/area] in /[HPF] Hospital Urine sediment by Automated count ID Date Data Source [id number] 12/15/2018 02:20:00 AM [facility] Name Value Range Interpretation Description Data Sup porting Code Source(s) Document(s ) Leukocytes 0-3 [place] [#/area] in /[HPF] Hospital Urine sediment by Automated count ID Date Data Source [id number] 12/15/2018 02:20:00 AM EST [facility] Name Value Range Interpretation Code Description Data Supporting Source(s) Document(s ) Leukocyte TRACE [facility] esterase Hospital [Presence] in Urine by Test strip ID Date Data Source [id number] 12/15/2018 02:20:00 AM EST [facility] Name Value Range Interpretation Description Data Sup porting Code Source(s) Document(s ) URINE NEGATIVE [place] NITRITES Hospital ID Date Data Source [id number] 12/15/2018 02:20:00 AM EST [facility] Name Value Range Interpretation Description Data Sup porting Code Source(s) Document(s ) Erythrocytes TRACE [place] [#/volume] in Hospital Urine by Test strip ID Date Data Source [id number] 12/15/2018 02:20:00 AM EST [facility] Name Value Range Interpretation Code Description Data Isabel rce(s) Supporting Document(s ) Bilirubin. NEGATIVE [facility] [facility] total Hospital [Presence] in Urine by Test strip ID Date Data Source [id number] 12/15/2018 02:20:00 AM [facility] Name Value Range Interpretation Description Data Sup porting Code Source(s) Document(s ) Urobilinogen 1.0 [place] [Units/volume] mg/dL Hospital in Urine by Test strip ID Date Data Source [id number] 12/15/2018 02:20:00 AM EST [facility] Name Value Range Interpretation Description Data Sup porting Code Source(s) Document(s ) Ketones NEGATIVE [place] [Mass/volume Hospital ] in Urine by Test strip ID Date Data Source [id number] 12/15/2018 02:20:00 AM EST [facility] Name Value Range Interpretation Description Data Sup porting Code Source(s) Document(s ) Glucose NEGATIVE [place] [Mass/volume Hospital ] in Urine by Test strip ID Date Data Source [id number] 12/15/2018 02:20:00 AM EST [facility] Name Value Range Interpretation Code Description Data Isabel rce(s) Supporting Document(s ) Protein TRACE [place] [Presence] Hospital in Urine by Test strip ID Date Data Source [id number] 12/15/2018 02:20:00 AM EST [facility] Name Value Range Interpretation Code Description Data Isabel rce(s) Supporting Document(s ) pH of Urine 6.5 [place] by Test Hospital strip ID Date Data Source [id number] 12/15/2018 02:20:00 AM EST [facility] Name Value Range Interpretation Code Description Data Supporting Source(s) Document(s ) Specific 1.011 [place] gravity of Hospital Urine by Test strip ID Date Data Source [id number] 12/15/2018 02:20:00 AM EST [facility] Name Value Range Interpretation Description Data Sup porting Code Source(s) Document(s ) Clarity in Urine CLEAR [place] by Refractometry Hospital automated ID Date Data Source [id number] 12/15/2018 02:20:00 AM EST [facility] Name Value Range Interpretation Code Description Data Isabel rce(s) Supporting Document(s ) Color of YELLOW [place] Urine Hospital ID Date Data Source [id number] 12/14/2018 09:28:00 PM EST [facility] Name Value Range Interpretation Description Data Sup porting Code Source(s) Document(s ) Aspartate 43 U/L White aminotransferase [facility] [Enzymatic Hospital activity/volume] in Serum or Plasma ID Date Data Source [id number] 12/14/2018 09:28:00 PM EST [facility] Name Value Range Interpretation Description Data Sup porting Code Source(s) Document(s ) Alanine 16 U/L [facility] [Enzymatic Hospital activity/volume] in Serum or Plasma ID Date Data Source [id number] 12/14/2018 09:28:00 PM EST [facility] Name Value Range Interpretation Description Data Sup porting Code Source(s) Document(s ) Alkaline 134 U/L [place] phosphatase Hospital [Enzymatic activity/volume ] in Serum or Plasma ID Date Data Source [id number] 12/14/2018 09:28:00 PM [facility] Name Value Range Interpretation Description Data Sup porting Code Source(s) Document(s ) Bilirubin.t 3.0 mg/dL [facility] [Mass/volum e] in Serum or Plasma ID Date Data Source [id number] 12/14/2018 09:28:00 PM [facility] Name Value Range Interpretation Code Description Data Isabel rce(s) Supporting Document(s ) [facility] in Serum or Plasma ID Date Data Source [id number] 12/14/2018 09:28:00 PM [facility] Name Value Range Interpretation Description Data Sup porting Code Source(s) Document(s ) Albumin 3.8 g/dL [place] [Mass/volume Hospital ] in Serum or Plasma ID Date Data Source [id number] 12/14/2018 09:28:00 PM [facility] Name Value Range Interpretation Description Data Sup porting Code Source(s) Document(s ) Protein 7.7 g/dL [place] [Mass/volume Hospital ] in Serum or Plasma ID Date Data Source [id number] 12/14/2018 09:28:00 PM [facility] Name Value Range Interpretation Description Data Sup porting Code Source(s) Document(s ) Calcium 8.5 mg/dL [place] [Mass/volume Hospital ] in Serum or Plasma ID Date Data Source [id number] 12/14/2018 09:28:00 PM EST [facility] Name Value Range Interpretation Code Description Data Isabel rce(s) Supporting Document(s ) Urea 16.7 [place] nitrogen/Cre Hospital atinine [Mass Ratio] in Serum or Plasma ID Date Data Source [id number] 12/14/2018 09:28:00 PM EST [facility] Name Value Range Interpretation Description Data Sup porting Code Source(s) Document(s ) Creatinine 0.6 mg/dL [place] [Mass/volume] Hospital in Serum or Plasma ID Date Data Source [id number] 12/14/2018 09:28:00 PM EST [facility] Name Value Range Interpretation Description Data Sup porting Code Source(s) Document(s ) Urea 10 mg/dL [place] nitrogen Hospital [Mass/volume ] in Serum or Plasma ID Date Data Source [id number] 12/14/2018 09:28:00 PM EST [facility] Name Value Range Interpretation Code Description Data Isabel rce(s) Supporting Document(s ) Anion gap in 11 [place] Serum or Hospital Plasma ID Date Data Source [id number] 12/14/2018 09:28:00 PM EST [facility] Name Value Range Interpretation Description Data Sup porting Code Source(s) Document(s ) Carbon 28 mmol/L [place] dioxide, Hospital total [Moles/volu me] in Serum or Plasma ID Date Data Source [id number] 12/14/2018 09:28:00 PM EST [facility] Name Value Range Interpretation Description Data Sup porting Code Source(s) Document(s ) Chloride 105 [place] [Moles/volum mmol/L Hospital e] in Serum or Plasma ID Date Data Source [id number] 12/14/2018 09:28:00 PM EST [facility] Name Value Range Interpretation Description Data Sup porting Code Source(s) Document(s ) Potassium 4.5 [place] [Moles/volume mmol/L Hospital ] in Serum or Plasma ID Date Data Source [id number] 12/14/2018 09:28:00 PM EST [facility] Name Value Range Interpretation Description Data Sup porting Code Source(s) Document(s ) Sodium 139 mmol/L [place] [Moles/volu Hospital fl] in Serum or Plasma ID Date Data Source [id number] 12/14/2018 09:28:00 PM EST [facility] Name Value Range Interpretation Description Data Sup porting Code Source(s) Document(s ) Glucose 90 mg/dL [place] [Mass/volume Hospital ] in Serum or Plasma ID Date Data Source [id number] 12/14/2018 09:28:00 PM [facility] Value Range Interpretation Code Description Data Supporting Source(s) Document(s ) Immature 29.9 % [place] reticulocytes Hospital /Reticulocyte s.total in Blood ID Date Data Source [id number] 12/14/2018 09:28:00 PM [facility] Value Range Interpretation Description Data Sup porting Code Source(s) Document(s ) Reticulocytes 0.37 [place] [#/volume] in 10*6/uL Hospital Blood by Automated count ID Date Data Source [id number] 12/14/2018 09:28:00 PM [facility] Value Range Interpretation Description Data Sup porting Code Source(s) Document(s ) Reticulocytes/10 12.22 % [place] 0 erythrocytes Hospital in Blood by Automated count ID Date Data Source [id number] 12/14/2018 09:28:00 PM EST [facility] Name Value Range Interpretation Code Description Data Supporting Source(s) Document(s ) NUCLEATED RBCS 0.7 % [place] (AUTO Hospital DIFF%)DIS ID Date Data Source [id number] 12/14/2018 09:28:00 PM [facility] Name Value Range Interpretation Description Data Sup porting Code Source(s) Document(s ) Differential AUTOMATED [place] cell count Hospital method - Blood ID Date Data Source [id number] 12/14/2018 09:28:00 PM [facility] Name Value Range Interpretation Description Data Sup porting Code Source(s) Document(s ) Immature 0.03 [place] granulocytes 10*3/uL Hospital [#/volume] in Blood by Automated count ID Date Data Source [id number] 12/14/2018 09:28:00 PM [facility] Name Value Range Interpretation Description Data Sup porting Code Source(s) Document(s ) Basophils 0.04 [place] [#/volume] in 10*3/uL Hospital Blood by Automated count ID Date Data Source [id number] 12/14/2018 09:28:00 PM EST [facility] Name Value Range Interpretation Description Data Sup porting Code Source(s) Document(s ) Eosinophils 0.09 [place] [#/volume] in 10*3/uL Hospital Blood by Automated count ID Date Data Source [id number] 12/14/2018 09:28:00 PM EST [facility] Name Value Range Interpretation Description Data Sup porting Code Source(s) Document(s ) Monocytes 1.18 [place] [#/volume] in 10*3/uL Hospital Blood by Automated count ID Date Data Source [id number] 12/14/2018 09:28:00 PM EST [facility] Name Value Range Interpretation Description Data Sup porting Code Source(s) Document(s ) Lymphocytes 2.00 [place] [#/volume] in 10*3/uL Hospital Blood by Automated count ID Date Data Source [id number] 12/14/2018 09:28:00 PM [facility] Value Range Interpretation Description Data Sup porting Code Source(s) Document(s ) Neutrophils 4.06 [place] [#/volume] in 10*3/uL Hospital Blood by Automated count ID Date Data Source [id number] 12/14/2018 09:28:00 PM [facility] Value Range Interpretation Description Data Sup porting Code Source(s) Document(s ) Nucleated 0.7 % [place] erythrocytes/10 Hospital 0 leukocytes [Ratio] in Blood by Automated count ID Date Data Source [id number] 12/14/2018 09:28:00 PM [facility] Value Range Interpretation Description Data Sup porting Code Source(s) Document(s ) Immature 0.4 % [place] granulocytes/10 Hospital 0 leukocytes in Blood by Automated count ID Date Data Source [id number] 12/14/2018 09:28:00 PM [facility] Value Range Interpretation Description Data Sup porting Code Source(s) Document(s ) Basophils/100 0.5 % [place] leukocytes in Hospital Blood by Automated count ID Date Data Source [id number] 12/14/2018 09:28:00 PM [facility] Value Range Interpretation Description Data Sup porting Code Source(s) Document(s ) Eosinophils/100 1.2 % [place] leukocytes in [facility] Blood by Automated count ID Date Data Source [id number] 12/14/2018 09:28:00 PM [facility] Value Range Interpretation Description Data Sup porting Code Source(s) Document(s ) Monocytes/100 15.9 % [place] leukocytes in Hospital Blood by Automated count ID Date Data Source [id number] 12/14/2018 09:28:00 PM EST [facility] Name Value Range Interpretation Description Data Sup porting Code Source(s) Document(s ) Lymphocytes/10 27.0 % [place] 0 leukocytes Hospital in Blood by Automated count ID Date Data Source [id number] 12/14/2018 09:28:00 PM EST [facility] Value Range Interpretation Description Data Sup porting Code Source(s) Document(s ) Neutrophils/10 55.0 % [place] 0 leukocytes Hospital in Blood by Automated count ID Date Data Source [id number] 12/14/2018 09:28:00 PM EST [facility] Value Range Interpretation Description Data Sup porting Code Source(s) Document(s ) Platelet mean 9.8 fL [place] volume Hospital [Entitic volume] in Blood by Automated count ID Date Data Source [id number] 12/14/2018 09:28:00 PM [facility] Value Range Interpretation Description Data Sup porting Code Source(s) Document(s ) Platelets 217 [place] [#/volume] in 10*3/uL Hospital Blood by Automated count ID Date Data Source [id number] 12/14/2018 09:28:00 PM [facility] Value Range Interpretation Description Data Sup porting Code Source(s) Document(s ) Erythrocyte 18.3 % [place] distribution Hospital width [Ratio] by Automated count ID Date Data Source [id number] 12/14/2018 09:28:00 PM [facility] Value Range Interpretation Description Data Sup porting Code Source(s) Document(s ) Erythrocyte mean 37.0 [place] corpuscular g/dL Hospital hemoglobin concentration [Mass/volume] by Automated count ID Date Data Source [id number] 12/14/2018 09:28:00 PM [facility] Name Value Range Interpretation Description Data Sup porting Code Source(s) Document(s ) Erythrocyte 29.3 pg [facility] corpuscular hemoglobin [Entitic mass] by Automated count ID Date Data Source [id number] 12/14/2018 09:28:00 PM [facility] Name Value Range Interpretation Description Data Sup porting Code Source(s) Document(s ) Erythrocyte 79.3 fL [facility] corpuscular volume [Entitic volume] by Automated count ID Date Data Source [id number] 12/14/2018 09:28:00 PM [facility] NOTIFICATION AND READ BACK OF CRIT[facility] AT 2141 ON 12/14/18 BY Afia Alcazar. Name Value Range Interpretation Description Data Sup porting Code Source(s) Document(s ) Hematocrit 23.8 % [place] [Volume Hospital Fraction] of Blood by Automated count ID Date Data Source [id number] 12/14/2018 09:28:00 PM [facility] Name Value Range Interpretation Description Data Sup porting Code Source(s) Document(s ) Hemoglobin 8.8 g/dL [place] [Mass/volume] Hospital in Blood ID Date Data Source [id number] 12/14/2018 09:28:00 PM [facility] Name Value Range Interpretation Description Data Sup porting Code Source(s) Document(s ) Erythrocytes 3.00 [place] [#/volume] in 10*6/uL Hospital Blood by Automated count ID Date Data Source [id number] 12/14/2018 09:28:00 PM [facility] Name Value Range Interpretation Description Data Sup porting Code Source(s) Document(s ) Leukocytes 7.4 [place] [#/volume] in 10*3/uL Hospital Blood by Automated count ID Date Data Source [id number] 12/14/2018 09:28:00 PM EST [facility] Value Range Interpretation Code Description Data Supporting Source(s) Document(s ) Immature 29.9 % [place] reticulocytes Hospital /Reticulocyte s.total in Blood ID Date Data Source [id number] 11/25/2018 06:27:00 PM EDT [facility] Value Range Interpretation Description Data Sup porting Code Source(s) Document(s ) Aspartate 50 U/L White aminotransferase [facility] [Enzymatic Hospital activity/volume] in Serum or Plasma ID Date Data Source [id number] 11/25/2018 06:27:00 PM EDT [facility] Value Range Interpretation Description Data Sup porting Code Source(s) Document(s ) Alanine 21 U/L White aminotransferase [facility] [Enzymatic Hospital activity/volume] in Serum or Plasma ID Date Data Source [id number] 11/[facility] Description Data Sup porting Code Source(s) Document(s ) Alkaline 158 U/L [place] phosphatase [facility] [Enzymatic activity/volume ] in Serum or Plasma ID Date Data Source [id number] 11/25[facility] Value Range Interpretation Description Data Sup porting Code Source(s) Document(s ) Bilirubin.t 2.5 mg/dL [facility] [Mass/volum e] in Serum or Plasma ID Date Data Source [id number] 11/[facility]ation Code Description Data Isabel rce(s) Supporting Document(s ) Albumin/Glob 0.9 [place] ulin [Mass Hospital Ratio] in Serum or Plasma ID Date Data Source [id number] 11/25/2018 06:27:00 PM EDT [facility] Name Value Range Interpretation Description Data Sup porting Code Source(s) Document(s ) Albumin 3.6 g/dL [place] [Mass/volume Hospital ] in Serum or Plasma ID Date Data Source [id number] 11/25/2018 06:27:00 PM EDT [facility] Name Value Range Interpretation Description Data Sup porting Code Source(s) Document(s ) Protein 7.8 g/dL [place] [Mass/volume Hospital ] in Serum or Plasma ID Date Data Source [id number] 11/25/2018 06:27:00 PM EDT [facility] Name Value Range Interpretation Description Data Sup porting Code Source(s) Document(s ) Calcium 8.2 mg/dL [place] [Mass/volume Hospital ] in Serum or Plasma ID Date Data Source [id number] 11/25/2018 06:27:00 PM EDT [facility] Name Value Range Interpretation Code Description Data Isabel rce(s) Supporting Document(s ) Urea 16.7 [place] nitrogen/Cre Hospital atinine [Mass Ratio] in Serum or Plasma ID Date Data Source [id number] 11/25/2018 06:27:00 PM EDT [facility] Name Value Range Interpretation Description Data Sup porting Code Source(s) Document(s ) Creatinine 0.6 mg/dL [place] [Mass/volume] Hospital in Serum or Plasma ID Date Data Source [id number] 11/25/2018 06:27:00 PM EDT [facility] Name Value Range Interpretation Description Data Sup porting Code Source(s) Document(s ) Urea 10 mg/dL [place] nitrogen Hospital [Mass/volume ] in Serum or Plasma ID Date Data Source [id number] 11/25/2018 06:27:00 PM EDT [facility] Name Value Range Interpretation Code Description Data Isabel rce(s) Supporting Document(s ) Anion gap in 10 [place] Serum or Hospital Plasma ID Date Data Source [id number] 11/25/2018 06:27:00 PM EDT [facility] Name Value Range Interpretation Description Data Sup porting Code Source(s) Document(s ) Carbon 26 mmol/L [place] dioxide, Hospital total [Moles/volu me] in Serum or Plasma ID Date Data Source [id number] 11/25/2018 06:27:00 PM EDT [facility] Name Value Range Interpretation Description Data Sup porting Code Source(s) Document(s ) Chloride 107 [place] [Moles/volum mmol/L Hospital e] in Serum or Plasma ID Date Data Source [id number] 11/25/2018 06:27:00 PM EDT [facility] Name Value Range Interpretation Description Data Sup porting Code Source(s) Document(s ) Potassium 4.3 [place] [Moles/volume mmol/L Hospital ] in Serum or Plasma ID Date Data Source [id number] 11/25/2018 06:27:00 PM EDT [facility] Name Value Range Interpretation Description Data Sup porting Code Source(s) Document(s ) Sodium 139 mmol/L [place] [Moles/volu Hospital me] in Serum or Plasma ID Date Data Source [id number] 11/25/2018 06:27:00 PM EDT [facility] Name Value Range Interpretation Description Data Sup porting Code Source(s) Document(s ) Glucose 96 mg/dL [place] [Mass/volume Hospital ] in Serum or Plasma ID Date Data Source [id number] 11/25/2018 06:27:00 PM EDT [facility] Name Value Range Interpretation Description Data Sup porting Code Source(s) Document(s ) Reticulocytes 0.34 [place] [#/volume] in 10*6/uL Hospital Blood by Automated count ID Date Data Source [id number] 11/25/2018 06:27:00 PM EDT [facility] Name Value Range Interpretation Description Data Sup porting Code Source(s) Document(s ) Reticulocytes/10 11.10 % [place] 0 erythrocytes Hospital in Blood by Automated count ID Date Data Source [id number] 11/25/2018 06:27:00 PM EDT [facility] Name Value Range Interpretation Description Data Sup porting Code Source(s) Document(s ) Differential AUTOMATED [place] cell count Hospital method - Blood ID Date Data Source [id number] 11/25/2018 [facility] Value Range Interpretation Description Data Sup porting Code Source(s) Document(s ) Immature 0.04 [place] granulocytes 10*3/uL Hospital [#/volume] in Blood by Automated count ID Date Data Source [id number] 11/25/2018 06:27:00 PM EDT [facility] Name Value Range Interpretation Description Data Sup porting Code Source(s) Document(s ) Basophils 0.04 [place] [#/volume] in 10*3/uL Hospital Blood by Automated count ID Date Data Source [id number] 11/25/2018 [facility] Value Range Interpretation Description Data Sup porting Code Source(s) Document(s ) Eosinophils 0.08 [place] [#/volume] in 10*3/uL Hospital Blood by Automated count ID Date Data Source [id number] 11/25/2018 06:27:00 PM EDT [facility] Name Value Range Interpretation Description Data Sup porting Code Source(s) Document(s ) Monocytes 1.08 [place] [#/volume] in 10*3/uL Hospital Blood by Automated count ID Date Data Source [id number] 11/25/2018 06:27:00 PM EDT [facility] Value Range Interpretation Description Data Sup porting Code Source(s) Document(s ) Lymphocytes 1.91 [place] [#/volume] in 10*3/uL Hospital Blood by Automated count ID Date Data Source [id number] 11/25/2018 06:27:00 PM EDT [facility] Value Range Interpretation Description Data Sup porting Code Source(s) Document(s ) Neutrophils 3.72 [place] [#/volume] in 10*3/uL Hospital Blood by Automated count ID Date Data Source [id number] 11/25/2018 06:27:00 PM EDT [facility] Value Range Interpretation Description Data Sup porting Code Source(s) Document(s ) Nucleated 1.0 % [place] erythrocytes/10 Hospital 0 leukocytes [Ratio] in Blood by Automated count ID Date Data Source [id number] 11/25/2018 06:27:00 PM EDT [facility] Value Range Interpretation Description Data Sup porting Code Source(s) Document(s ) Immature 0.6 % [place] granulocytes/10 Hospital 0 leukocytes in Blood by Automated count ID Date Data Source [id number] 11/25/2018 06:27:00 PM EDT [facility] Value Range Interpretation Description Data Sup porting Code Source(s) Document(s ) Basophils/100 0.6 % [place] leukocytes in Hospital Blood by Automated count ID Date Data Source [id number] 11/25/2018 06:27:00 PM EDT [facility] Name Value Range Interpretation Description Data Sup porting Code Source(s) Document(s ) Eosinophils/100 1.2 % [place] leukocytes in Hospital Blood by Automated count ID Date Data Source [id number] 11/25/2018 06:27:00 PM EDT [facility] Name Value Range Interpretation Description Data Sup porting Code Source(s) Document(s ) Monocytes/100 15.7 % [place] leukocytes in Hospital Blood by Automated count ID Date Data Source [id number] 11/25/2018 06:27:00 PM EDT [facility] Name Value Range Interpretation Description Data Sup porting Code Source(s) Document(s ) Lymphocytes/10 27.8 % [place] 0 leukocytes Hospital in Blood by Automated count ID Date Data Source [id number] 11/25/2018 06:27:00 PM EDT [facility] Name Value Range Interpretation Description Data Sup porting Code Source(s) Document(s ) Neutrophils/10 54.1 % [place] 0 leukocytes Hospital in Blood by Automated count ID Date Data Source [id number] 11/25/2018 06:27:00 PM EDT [facility] Value Range Interpretation Description Data Sup porting Code Source(s) Document(s ) Platelet mean 10.6 fL [place] volume Hospital [Entitic volume] in Blood by Automated count ID Date Data Source [id number] 11/25/2018 06:27:00 PM EDT [facility] Name Value Range Interpretation Description Data Sup porting Code Source(s) Document(s ) Platelets 253 [place] [#/volume] in 10*3/uL Hospital Blood by Automated count ID Date Data Source [id number] 11/25/2018 06:27:00 PM EDT [facility] Value Range Interpretation Description Data Sup porting Code Source(s) Document(s ) Erythrocyte 20.9 % [facility] Hospital width [Ratio] by Automated count ID Date Data Source [id number] [facility] Description Data Sup porting Code Source(s) Document(s ) Erythrocyte mean 33.9 [place] corpuscular g/dL Hospital hemoglobin concentration [Mass/volume] by Automated count ID Date Data Source [id number] [facility] Description Data Sup porting Code Source(s) Document(s ) Erythrocyte 28.5 pg [facility] corpuscular hemoglobin [Entitic mass] by Automated count ID Date Data Source [id number] 11/25/2018 06:27:00 PM [facility] Value Range Interpretation Description Data Sup porting Code Source(s) Document(s ) Erythrocyte 84.3 fL [facility] corpuscular volume [Entitic volume] by Automated count ID Date Data Source [id number] 11/25/2018 06:27:00 PM [facility] Value Range Interpretation Description Data Sup porting Code Source(s) Document(s ) Hematocrit 25.7 % [place] [Volume Hospital Fraction] of Blood by Automated count ID Date Data Source [id number] 11/25/2018 06:27:00 PM [facility] Value Range Interpretation Description Data Sup porting Code Source(s) Document(s ) Hemoglobin 8.7 g/dL [place] [Mass/volume] Hospital in Blood ID Date Data Source [id number] 11/[facility] Description Data Sup porting Code Source(s) Document(s ) Erythrocytes 3.05 [place] [#/volume] in 10*6/uL Hospital Blood by Automated count ID Date Data Source [id number] 11/25/2018 06:27:00 PM EDT [facility] Name Value Range Interpretation Description Data Sup porting Code Source(s) Document(s ) Leukocytes 6.9 [place] [#/volume] in 10*3/uL Hospital Blood by Automated count ID Date Data Source [id number] 11/04/2018 07:46:00 PM EDT [facility] Name Value Range Interpretation Description Data Sup porting Code Source(s) Document(s ) URINE 1+ [facility] CELLS ID Date Data Source [id number] 11/04/2018 07:46:00 PM EDT [facility] Name Value Range Interpretation Description Data Sup porting Code Source(s) Document(s ) Erythrocytes 0-3 [place] [#/area] in /[HPF] Hospital Urine sediment by Automated count ID Date Data Source [id number] 11/[facility] Description Data Sup porting Code Source(s) Document(s ) Leukocytes 0-3 [place] [#/area] in /[HPF] Hospital Urine sediment by Automated count ID Date Data Source [id number] [facility] Interpretation Description Data Sup porting Code Source(s) Document(s ) Leukocyte NEGATIVE [place] esterase Hospital [Presence] in Urine by Test strip ID Date Data Source [id number] 11/04/2018 07:46:00 PM EDT [facility] Name Value Range Interpretation Description Data Sup porting Code Source(s) Document(s ) URINE NEGATIVE [place] NITRITES Hospital ID Date Data Source [id number] 11/04/2018 07:46:00 PM EDT [facility] Name Value Range Interpretation Description Data Sup porting Code Source(s) Document(s ) Erythrocytes TRACE [place] [#/volume] in Hospital Urine by Test strip ID Date Data Source [id number] 11/04/2018 07:46:00 PM EDT [facility] Name Value Range Interpretation Code Description Data Isabel rce(s) Supporting Document(s ) Bilirubin. NEGATIVE [place] total Hospital [Presence] in Urine by Test strip ID Date Data Source [id number] 11/04/2018 07:46:00 PM EDT [facility] Name Value Range Interpretation Description Data Sup porting Code Source(s) Document(s ) Urobilinogen 2.0 [place] [Units/volume] mg/dL Hospital in Urine by Test strip ID Date Data Source [id number] 11/04/2018 07:46:00 PM EDT [facility] Name Value Range Interpretation Description Data Sup porting Code Source(s) Document(s ) Ketones NEGATIVE [place] [Mass/volume Hospital ] in Urine by Test strip ID Date Data Source [id number] 11/04/2018 07:46:00 PM EDT [facility] Name Value Range Interpretation Description Data Sup porting Code Source(s) Document(s ) Glucose NEGATIVE [place] [Mass/volume Hospital ] in Urine by Test strip ID Date Data Source [id number] 11/04/2018 07:46:00 PM EDT [facility] Name Value Range Interpretation Code Description Data Isabel rce(s) Supporting Document(s ) Protein 1+ [place] [Presence] Hospital in Urine by Test strip ID Date Data Source [id number] 11/04/2018 07:46:00 PM EDT [facility] Name Value Range Interpretation Code Description Data Isabel rce(s) Supporting Document(s ) pH of Urine 6.5 [place] by Test Hospital strip ID Date Data Source [id number] 11/04/2018 07:46:00 PM EDT [facility] Name Value Range Interpretation Code Description Data Supporting Source(s) Document(s ) Specific 1.012 [place] gravity of Hospital Urine by Test strip ID Date Data Source [id number] 11/04/2018 07:46:00 PM EDT [facility] Name Value Range Interpretation Description Data Sup porting Code Source(s) Document(s ) Clarity in Urine CLEAR [place] by [facility] automated ID Date Data Source [id number] 11/04/2018 07:46:00 PM EDT [facility] Value Range Interpretation Code Description Data Isabel rce(s) Supporting Document(s ) Color of YELLOW [place] Urine Hospital ID Date Data Source [id number] 11/04/[facility] Description Data Sup porting Code Source(s) Document(s ) URINE 1+ [place] EPITHELIAL [facility] CELLS ID Date Data Source [id number] 11/04/2018 07:46:00 PM EDT [facility] Name Value Range Interpretation Description Data Sup porting Code Source(s) Document(s ) Erythrocytes 0-3 [place] [#/area] in /[HPF] Hospital Urine sediment by Automated count ID Date Data Source [id number] 11/04/2018 07:46:00 PM EDT [facility] Name Value Range Interpretation Description Data Sup porting Code Source(s) Document(s ) Leukocytes 0-3 [place] [#/area] in /[HPF] Hospital Urine sediment by Automated count ID Date Data Source [id number] 11/04/2018 07:46:00 PM EDT [facility] Name Value Range Interpretation Description Data Sup porting Code Source(s) Document(s ) Leukocyte NEGATIVE [place] esterase Hospital [Presence] in Urine by Test strip ID Date Data Source [id number] 11/04/2018 07:46:00 PM EDT [facility] Name Value Range Interpretation Description Data Sup porting Code Source(s) Document(s ) URINE NEGATIVE [place] NITRITES Hospital ID Date Data Source [id number] 11/04/2018 07:46:00 PM EDT [facility] Name Value Range Interpretation Description Data Sup porting Code Source(s) Document(s ) Erythrocytes TRACE [place] [#/volume] in Hospital Urine by Test strip ID Date Data Source [id number] 11/04/2018 07:46:00 PM EDT [facility] Name Value Range Interpretation Code Description Data Isabel rce(s) Supporting Document(s ) Bilirubin. NEGATIVE [place] total Hospital [Presence] in Urine by Test strip ID Date Data Source [id number] 11/04/[facility] Description Data Sup porting Code Source(s) Document(s ) Urobilinogen 2.0 [place] [Units/volume] mg/dL Hospital in Urine by Test strip ID Date Data Source [id number] 11/04/2018 07:46:00 PM EDT [facility] Name Value Range Interpretation Description Data Sup porting Code Source(s) Document(s ) Ketones NEGATIVE [place] [Mass/volume Hospital ] in Urine by Test strip ID Date Data Source [id number] 11/04/2018 07:46:00 PM EDT [facility] Name Value Range Interpretation Description Data Sup porting Code Source(s) Document(s ) Glucose NEGATIVE [place] [Mass/volume Hospital ] in Urine by Test strip ID Date Data Source [id number] 11/04/2018 07:46:00 PM EDT [facility] Name Value Range Interpretation Code Description Data Isabel rce(s) Supporting Document(s ) Protein 1+ [place] [Presence] Hospital in Urine by Test strip ID Date Data Source [id number] 11/04/2018 07:46:00 PM EDT [facility] Name Value Range Interpretation Code Description Data Isabel rce(s) Supporting Document(s ) pH of Urine 6.5 [place] by Test Hospital strip ID Date Data Source [id number] 11/04/2018 07:46:00 PM EDT [facility] Name Value Range Interpretation Code Description Data Supporting Source(s) Document(s ) Specific 1.012 [place] gravity of Hospital Urine by Test strip ID Date Data Source [id number] 11/04/2018 07:46:00 PM EDT [facility] Name Value Range Interpretation Description Data Sup porting Code Source(s) Document(s ) Clarity in Urine CLEAR [place] by [facility] automated ID Date Data Source [id number] 11/04/2018 07:46:00 PM EDT [facility] Name Value Range Interpretation Code Description Data Isabel rce(s) Supporting Document(s ) Color of YELLOW [place] Urine Hospital ID Date Data Source [id number] 11/04/2018 07:36:00 PM EDT [facility] Name Value Range Interpretation Code Description Data Supporting Source(s) Document(s ) NUCLEATED RBCS 0.6 % [place] (AUTO Hospital DIFF%)DIS ID Date Data Source [id number] 11/04/2018 07:36:00 PM EDT [facility] Name Value Range Interpretation Description Data Sup porting Code Source(s) Document(s ) Aspartate 45 U/L [facility] amin[facility] [place] [Enzymatic Hospital activity/volume] in Serum or Plasma ID Date Data Source [id number] 11/04/2018 07:36:00 PM EDT [facility] Name Value Range Interpretation Description Data Sup porting Code Source(s) Document(s ) Alanine 17 U/L [facility] aminotransferase [place] [Enzymatic Hospital activity/volume] in Serum or Plasma ID Date Data Source [id number] 11/04/2018 07:36:00 PM EDT [facility] Name Value Range Interpretation Description Data Sup porting Code Source(s) Document(s ) Alkaline 155 U/L [place] phosphatase Hospital [Enzymatic activity/volume ] in Serum or Plasma ID Date Data Source [id number] 11/[facility] Interpretation Description Data Sup porting Code Source(s) Document(s ) Bilirubin.t 2.5 mg/dL [facility] [Mass/volum e] in Serum or Plasma ID Date Data Source [id number] 11/04/2018 07:36:00 PM EDT [facility] Value Range Interpretation Code Description Data Isabel rce(s) Supporting Document(s ) [facility] in Serum or Plasma ID Date Data Source [id number] 11/04/2018 [facility] Value Range Interpretation Description Data Sup porting Code Source(s) Document(s ) Albumin 3.8 g/dL [place] [Mass/volume Hospital ] in Serum or Plasma ID Date Data Source [id number] 11/04/2018 07:36:00 PM EDT [facility] Name Value Range Interpretation Description Data Sup porting Code Source(s) Document(s ) Protein 8.2 g/dL [place] [Mass/volume Hospital ] in Serum or Plasma ID Date Data Source [id number] 11/04/2018 07:36:00 PM EDT [facility] Name Value Range Interpretation Description Data Sup porting Code Source(s) Document(s ) Calcium 8.5 mg/dL [place] [Mass/volume Hospital ] in Serum or Plasma ID Date Data Source [id number] 11/04/2018 07:36:00 PM EDT [facility] Value Range Interpretation Code Description Data Isabel rce(s) Supporting Document(s ) Urea 15.0 [place] nitrogen/Cre Hospital atinine [Mass Ratio] in Serum or Plasma ID Date Data Source [id number] 11/04/2018 07:36:00 PM EDT [facility] Value Range Interpretation Description Data Sup porting Code Source(s) Document(s ) Creatinine 0.6 mg/dL [place] [Mass/volume] Hospital in Serum or Plasma ID Date Data Source [id number] 11/04/2018 07:36:00 PM EDT [facility] Value Range Interpretation Description Data Sup porting Code Source(s) Document(s ) Urea nitrogen 9 mg/dL [place] [Mass/volume] Hospital in Serum or Plasma ID Date Data Source [id number] 11/04/2018 07:36:00 PM EDT [facility] Value Range Interpretation Code Description Data Isabel rce(s) Supporting Document(s ) Anion gap in 10 [place] Serum or [facility] Plasma ID Date Data Source [id number] 11/04/2018 07:36:00 PM EDT [facility] Value Range Interpretation Description Data Sup porting Code Source(s) Document(s ) Carbon 26 mmol/L [place] dioxide, Hospital total [Moles/volu me] in Serum or Plasma ID Date Data Source [id number] 11/04/2018 07:36:00 PM EDT [facility] Name Value Range Interpretation Description Data Sup porting Code Source(s) Document(s ) Chloride 104 [place] [Moles/volum mmol/L Hospital e] in Serum or Plasma ID Date Data Source [id number] 11/04/2018 07:36:00 PM EDT [facility] Name Value Range Interpretation Description Data Sup porting Code Source(s) Document(s ) Potassium 4.1 [place] [Moles/volume mmol/L Hospital ] in Serum or Plasma ID Date Data Source [id number] 11/04/2018 07:36:00 PM EDT [facility] Name Value Range Interpretation Description Data Sup porting Code Source(s) Document(s ) Sodium 136 mmol/L [place] [Moles/volu Hospital me] in Serum or Plasma ID Date Data Source [id number] 11/04/2018 07:36:00 PM EDT [facility] Name Value Range Interpretation Description Data Sup porting Code Source(s) Document(s ) Glucose 91 mg/dL [place] [Mass/volume Hospital ] in Serum or Plasma ID Date Data Source [id number] 11/04/2018 07:36:00 PM EDT [facility] Name Value Range Interpretation Description Data Sup porting Code Source(s) Document(s ) Reticulocytes 0.32 [place] [#/volume] in 10*6/uL Hospital Blood by Automated count ID Date Data Source [id number] 11/04/2018 07:36:00 PM EDT [facility] Name Value Range Interpretation Description Data Sup porting Code Source(s) Document(s ) Reticulocytes/10 10.60 % [place] 0 erythrocytes Hospital in Blood by Automated count ID Date Data Source [id number] 11/04/2018 07:36:00 PM EDT [facility] Name Value Range Interpretation Code Description Data Supporting Source(s) Document(s ) NUCLEATED RBCS 0.6 % [place] (AUTO Hospital DIFF%)DIS ID Date Data Source [id number] 11/04/2018 07:36:00 PM EDT [facility] Value Range Interpretation Description Data Sup porting Code Source(s) Document(s ) Differential AUTOMATED [place] cell count [facility] method - Blood ID Date Data Source [id number] 11/04/2018 07:36:00 PM EDT [facility] Value Range Interpretation Description Data Sup porting Code Source(s) Document(s ) Immature 0.04 [place] granulocytes 10*3/uL Hospital [#/volume] in Blood by Automated count ID Date Data Source [id number] 11/04/2018 07:36:00 PM EDT [facility] Value Range Interpretation Description Data Sup porting Code Source(s) Document(s ) Basophils 0.05 [place] [#/volume] in 10*3/uL Hospital Blood by Automated count ID Date Data Source [id number] 11/04/2018 07:36:00 PM EDT [facility] Value Range Interpretation Description Data Sup porting Code Source(s) Document(s ) Eosinophils 0.15 [place] [#/volume] in 10*3/uL Hospital Blood by Automated count ID Date Data Source [id number] 11/04/2018 07:36:00 PM EDT [facility] Name Value Range Interpretation Description Data Sup porting Code Source(s) Document(s ) Monocytes 1.16 [place] [#/volume] in 10*3/uL Hospital Blood by Automated count ID Date Data Source [id number] 11/04/2018 07:36:00 PM EDT [facility] Value Range Interpretation Description Data Sup porting Code Source(s) Document(s ) Lymphocytes 2.18 [place] [#/volume] in 10*3/uL Hospital Blood by Automated count ID Date Data Source [id number] 11/04/2018 07:36:00 PM EDT [facility] Value Range Interpretation Description Data Sup porting Code Source(s) Document(s ) Neutrophils 4.88 [place] [#/volume] in 10*3/uL Hospital Blood by Automated count ID Date Data Source [id number] 11/04/2018 07:36:00 PM EDT [facility] Value Range Interpretation Description Data Sup porting Code Source(s) Document(s ) Nucleated 0.6 % [place] erythrocytes/10 Hospital 0 leukocytes [Ratio] in Blood by Automated count ID Date Data Source [id number] 11/04/2018 07:36:00 PM EDT [facility] Value Range Interpretation Description Data Sup porting Code Source(s) Document(s ) Immature 0.5 % [place] granulocytes/10 Hospital 0 leukocytes in Blood by Automated count ID Date Data Source [id number] 11/04/2018 07:36:00 PM EDT [facility] Value Range Interpretation Description Data Sup porting Code Source(s) Document(s ) Basophils/100 0.6 % [place] leukocytes in Hospital Blood by Automated count ID Date Data Source [id number] 11/04/2018 07:36:00 PM EDT [facility] Value Range Interpretation Description Data Sup porting Code Source(s) Document(s ) Eosinophils/100 1.8 % [place] leukocytes in Hospital Blood by Automated count ID Date Data Source [id number] 11/04/2018 07:36:00 PM EDT [facility] Name Value Range Interpretation Description Data Sup porting Code Source(s) Document(s ) Monocytes/100 13.7 % [place] leukocytes in Hospital Blood by Automated count ID Date Data Source [id number] 11/04/2018 07:36:00 PM EDT [facility] Name Value Range Interpretation Description Data Sup porting Code Source(s) Document(s ) Lymphocytes/10 25.8 % [place] 0 leukocytes Hospital in Blood by Automated count ID Date Data Source [id number] 11/04/2018 07:36:00 PM EDT [facility] Value Range Interpretation Description Data Sup porting Code Source(s) Document(s ) Neutrophils/10 57.6 % [place] 0 leukocytes Hospital in Blood by Automated count ID Date Data Source [id number] 11/04/2018 07:36:00 PM EDT [facility] Name Value Range Interpretation Description Data Sup porting Code Source(s) Document(s ) Platelet mean 9.7 fL [place] volume Hospital [Entitic volume] in Blood by Automated count ID Date Data Source [id number] 11/04/2018 07:36:00 PM EDT [facility] Name Value Range Interpretation Description Data Sup porting Code Source(s) Document(s ) Platelets 271 [place] [#/volume] in 10*3/uL Hospital Blood by Automated count ID Date Data Source [id number] 11/04/2018 07:36:00 PM EDT [facility] Name Value Range Interpretation Description Data Sup porting Code Source(s) Document(s ) Erythrocyte 20.5 % [place] distribution Hospital width [Ratio] by Automated count ID Date Data Source [id number] 11/04/2018 07:36:00 PM [facility] Value Range Interpretation Description Data Sup porting Code Source(s) Document(s ) Erythrocyte mean 34.7 [place] corpuscular g/dL Hospital hemoglobin concentration [Mass/volume] by Automated count ID Date Data Source [id number] 11/04/2018 07:36:00 PM [facility] Value Range Interpretation Description Data Sup porting Code Source(s) Document(s ) Erythrocyte 28.8 pg [facility] corpuscular hemoglobin [Entitic mass] by Automated count ID Date Data Source [id number] 11/04/2018 07:36:00 PM [facility] Value Range Interpretation Description Data Sup porting Code Source(s) Document(s ) Erythrocyte 82.9 fL [facility] corpuscular volume [Entitic volume] by Automated count ID Date Data Source [id number] 11/04/2018 07:36:00 PM [facility] Value Range Interpretation Description Data Sup porting Code Source(s) Document(s ) Hematocrit 24.8 % [facility] [facility] [Volume Hospital Fraction] of Blood by Automated count ID Date Data Source [id number] 11/04/2018 07:36:00 PM [facility] Value Range Interpretation Description Data Sup porting Code Source(s) Document(s ) Hemoglobin 8.6 g/dL [facility] [Mass/volume] Hospital in Blood ID Date Data Source [id number] [facility] Description Data Sup porting Code Source(s) Document(s ) Erythrocytes 2.99 [place] [facility] [#/volume] in 10*6/uL Hospital Blood by Automated count ID Date Data Source [id number] 11/04/2018 07:36:00 PM EDT [facility] Name Value Range Interpretation Description Data Sup porting Code Source(s) Document(s ) Leukocytes 8.5 [facility] [facility] [#/volume] in 10*3/uL Hospital Blood by Automated count ID Date Data Source [id number] 10/26/2018 01:23:00 PM EDT [facility] Name Value Range Interpretation Description Data Sup porting Code Source(s) Document(s ) Choriogonadotropin NEGATIVE [place] ( test) [place] [facility]Presence[facility] in Urine Hospital ID Date Data Source [id number] 10/[facility] Value Range Interpretation Code Description Data Isabel rce(s) Supporting Document(s ) URINE 0-5 [facility] CASTS ID Date Data Source [id number] 10/26/2018 01:23:00 PM EDT [facility] Value Range Interpretation Code Description Data Supporting Source(s) Document(s ) Immature 33.2 % [facility] [facility] reticulocytes Hospital /Reticulocyte s.total in Blood ID Date Data Source [id number] 10/[facility] Description Data Sup porting Code Source(s) Document(s ) Platelet mean 9.8 fL [facility] [Entitic volume] in Blood by Automated count ID Date Data Source [id number] 10/26/2018 01:23:00 PM EDT [facility] Name Value Range Interpretation Description Data Sup porting Code Source(s) Document(s ) Platelets 312 [place] [#/volume] in 10*3/uL Hospital Blood by Automated count ID Date Data Source [id number] 10/26/2018 01:23:00 PM EDT [facility] Name Value Range Interpretation Description Data Sup porting Code Source(s) Document(s ) Erythrocyte 18.8 % [facility] [facility] distribution Hospital width [Ratio] by Automated count ID Date Data Source [id number] 10/26/2018 01:23:00 PM [facility] Value Range Interpretation Description Data Sup porting Code Source(s) Document(s ) Erythrocyte mean 36.5 [facility] [facility] corpuscular g/dL Hospital hemoglobin concentration [Mass/volume] by Automated count ID Date Data Source [id number] 10/[facility] Description Data Sup porting Code Source(s) Document(s ) Erythrocyte 28.9 pg [facility] corpuscular hemoglobin [Entitic mass] by Automated count ID Date Data Source [id number] 10/26/2018 [facility] Interpretation Description Data Sup porting Code Source(s) Document(s ) Erythrocyte 79.2 fL [facility] corpuscular volume [Entitic volume] by Automated count ID Date Data Source [id number] 10/26/2018 01:23:00 PM [facility] Value Range Interpretation Description Data Sup porting Code Source(s) Document(s ) Hematocrit 24.4 % [facility] [facility] [Volume Hospital Fraction] of Blood by Automated count ID Date Data Source [id number] 10/26/2018 01:23:00 PM [facility] Value Range Interpretation Description Data Sup porting Code Source(s) Document(s ) Hemoglobin 8.9 g/dL [facility] [facility] [Mass/volume] Hospital in Blood ID Date Data Source [id number] 10/26/2018 [facility] Description Data Sup porting Code Source(s) Document(s ) Erythrocytes 3.08 [place] [#/volume] in 10*6/uL Hospital Blood by Automated count ID Date Data Source [id number] 10/26/2018 01:23:00 PM EDT [facility] Value Range Interpretation Description Data Sup porting Code Source(s) Document(s ) Leukocytes 8.5 [place] [#/volume] in 10*3/uL Hospital Blood by Automated count ID Date Data Source [id number] 10/26/2018 01:23:00 PM EDT [facility] Value Range Interpretation Description Data Sup porting Code Source(s) Document(s ) Choriogonadotropin NEGATIVE [facility] ( [facility]) [place] [Presence[facility] in Urine Hospital ID Date Data Source [id number] 10/26/2018 01:23:00 PM EDT [facility] Value Range Interpretation Code Description Data Isabel rce(s) Supporting Document(s ) URINE 0-5 [facility] CASTS ID Date Data Source [id number] 10/26/2018 01:23:00 PM EDT [facility] Value Range Interpretation Code Description Data Supporting Source(s) Document(s ) Immature 33.2 % [place] [facility] reticulocytes Hospital /Reticulocyte s.total in Blood ID Date Data Source [id number] 10/26/2018 01:23:00 PM EDT [facility] Value Range Interpretation Description Data Sup porting Code Source(s) Document(s ) Choriogonadotropin NEGATIVE [facility] ( [facility]) [place] [Presence] in Urine Hospital ID Date Data Source [id number] 10/26/2018 [facility] Interpretation Description Data Sup porting Code Source(s) Document(s ) Aspartate 52 U/L [facility] aminotransferase [place] [Enzymatic Hospital activity/volume] in Serum or Plasma ID Date Data Source [id number] 10/26/2018 01:23:00 PM EDT [facility] Name Value Range Interpretation Description Data Sup porting Code Source(s) Document(s ) Alanine 20 U/L [place] aminotransferase [place] [Enzymatic Hospital activity/volume] in Serum or Plasma ID Date Data Source [id number] 10/26/2018 01:23:00 PM EDT [facility] Name Value Range Interpretation Description Data Sup porting Code Source(s) Document(s ) Alkaline 144 U/L [facility] [facility] phosphatase Hospital [Enzymatic activity/volume ] in Serum or Plasma ID Date Data Source [id number] 10/26/2018 [facility] Value Range Interpretation Description Data Sup porting Code Source(s) Document(s ) Bilirubin.t 3.0 mg/dL [facility] [Mass/volum e] in Serum or Plasma ID Date Data Source [id number] 10/26/2018 01:23:00 PM [facility] Name Value Range Interpretation Code Description Data Isabel rce(s) Supporting Document(s ) [facility] Serum or Plasma ID Date Data Source [id number] 10/26/2018 [facility]:23:[facility] Name Value Range Interpretation Description Data Sup porting Code Source(s) Document(s ) Albumin 4.0 g/dL [place] [Mass/volume Hospital ] in Serum or Plasma ID Date Data Source [id number] 10/26/2018 01:23:[facility] Name Value Range Interpretation Description Data Sup porting Code Source(s) Document(s ) Protein 8.9 g/dL [place] [Mass/volume Hospital ] in Serum or Plasma ID Date Data Source [id number] 10/26/2018 01:23:00 PM EDT [facility] Name Value Range Interpretation Description Data Sup porting Code Source(s) Document(s ) Calcium 9.0 mg/dL [place] [Mass/volume Hospital ] in Serum or Plasma ID Date Data Source [id number] 10/26/2018 01:23:00 PM EDT [facility] Name Value Range Interpretation Code Description Data Isabel rce(s) Supporting Document(s ) Urea 13.3 [place] [facility] nitrogen/Cre Hospital atinine [Mass Ratio] in Serum or Plasma ID Date Data Source [id number] 10/26/2018 01:23:00 PM EDT [facility] Value Range Interpretation Description Data Sup porting Code Source(s) Document(s ) Creatinine 0.6 mg/dL [place] [facility] [Mass/volume] Hospital in Serum or Plasma ID Date Data Source [id number] 10/26/2018 01:23:00 PM EDT [facility] Name Value Range Interpretation Description Data Sup porting Code Source(s) Document(s ) Urea nitrogen 8 mg/dL [place] [facility] [Mass/volume] Hospital in Serum or Plasma ID Date Data Source [id number] 10/26/2018 01:23:00 PM EDT [facility] Value Range Interpretation Code Description Data Isabel rce(s) Supporting Document(s ) Anion gap in 12 [place] Serum or [facility] Plasma ID Date Data Source [id number] 10/26/2018 01:23:00 PM EDT [facility] Name Value Range Interpretation Description Data Sup porting Code Source(s) Document(s ) Carbon 27 mmol/L [facility] total [Moles/volu me] in Serum or Plasma ID Date Data Source [id number] 10/26/2018 01:23:00 PM EDT [facility] Name Value Range Interpretation Description Data Sup porting Code Source(s) Document(s ) Chloride 103 [place] [Moles/volum mmol/L Hospital e] in Serum or Plasma ID Date Data Source [id number] 10/26/2018 01:23:00 PM EDT [facility] Name Value Range Interpretation Description Data Sup porting Code Source(s) Document(s ) Potassium 4.4 [place] [Moles/volume mmol/L Hospital ] in Serum or Plasma ID Date Data Source [id number] 10/26/2018 01:23:00 PM EDT [facility] Name Value Range Interpretation Description Data Sup porting Code Source(s) Document(s ) Sodium 138 mmol/L [place] [facility] [Moles/volu Hospital me] in Serum or Plasma ID Date Data Source [id number] 10/26/2018 01:23:00 PM EDT [facility] Name Value Range Interpretation Description Data Sup porting Code Source(s) Document(s ) Glucose 94 mg/dL [place] [Mass/volume Hospital ] in Serum or Plasma ID Date Data Source [id number] 10/[facility] Code Description Data Isabel rce(s) Supporting Document(s ) URINE 0-5 [facility] CASTS ID Date Data Source [id number] 10/26/2018 01:23:00 PM EDT [facility] Name Value Range Interpretation Description Data Sup porting Code Source(s) Document(s ) URINE 1+ [facility] [facility] EPITHELIAL Hospital CELLS ID Date Data Source [id number] 10/26/2018 01:23:00 PM EDT [facility] Name Value Range Interpretation Description Data Sup porting Code Source(s) Document(s ) Erythrocytes 0-3 [place] [#/area] in /[HPF] Hospital Urine sediment by Automated count ID Date Data Source [id number] 10/26/2018 01:23:00 PM EDT [facility] Name Value Range Interpretation Description Data Sup porting Code Source(s) Document(s ) Leukocytes 0-3 [place] [facility] [#/area] in /[HPF] Hospital Urine sediment by Automated count ID Date Data Source [id number] 10/26/2018 01:23:00 PM EDT [facility] Name Value Range Interpretation Code Description Data Supporting Source(s) Document(s ) Leukocyte TRACE [facility] esterase Hospital [Presence] in Urine by Test strip ID Date Data Source [id number] 10/26/2018 01:23:00 PM EDT [facility] Name Value Range Interpretation Description Data Sup porting Code Source(s) Document(s ) URINE NEGATIVE [facility] [facility] NITRITES Hospital ID Date Data Source [id number] 10/26/2018 01:23:00 PM EDT [facility] Name Value Range Interpretation Description Data Sup porting Code Source(s) Document(s ) Erythrocytes TRACE [place] [facility] [#/volume] in Hospital Urine by Test strip ID Date Data Source [id number] 10/26/2018 01:23:00 PM EDT [facility] Name Value Range Interpretation Code Description Data Isabel rce(s) Supporting Document(s ) Bilirubin. NEGATIVE [facility] [facility] total Hospital [Presence] in Urine by Test strip ID Date Data Source [id number] 10/26/2018 01:23:00 PM EDT [facility] Name Value Range Interpretation Description Data Sup porting Code Source(s) Document(s ) Urobilinogen 2.0 [place] [facility] [Units/volume] mg/dL Hospital in Urine by Test strip ID Date Data Source [id number] 10/26/2018 01:23:00 PM EDT [facility] Name Value Range Interpretation Description Data Sup porting Code Source(s) Document(s ) Ketones NEGATIVE [place] [facility] [Mass/volume Hospital ] in Urine by Test strip ID Date Data Source [id number] 10/26/2018 01:23:00 PM EDT [facility] Name Value Range Interpretation Description Data Sup porting Code Source(s) Document(s ) Glucose NEGATIVE [place] [facility] [Mass/volume Hospital ] in Urine by Test strip ID Date Data Source [id number] 10/26/2018 01:23:00 PM EDT [facility] Name Value Range Interpretation Code Description Data Isabel rce(s) Supporting Document(s ) Protein 1+ [facility] [facility] [Presence] Hospital in Urine by Test strip ID Date Data Source [id number] 10/26/2018 01:23:00 PM EDT [facility] Name Value Range Interpretation Code Description Data Isabel rce(s) Supporting Document(s ) pH of Urine 6.5 [place] [facility] by Test Hospital strip ID Date Data Source [id number] 10/26/2018 01:23:00 PM EDT [facility] Value Range Interpretation Code Description Data Supporting Source(s) Document(s ) Specific 1.012 [place] [facility] gravity of Hospital Urine by Test strip ID Date Data Source [id number] 10/26/2018 01:23:00 PM EDT [facility] Name Value Range Interpretation Description Data Sup porting Code Source(s) Document(s ) Clarity in Urine CLEAR [facility] [facility] by Refractometry Hospital automated ID Date Data Source [id number] 10/26/2018 01:23:00 PM EDT [facility] Name Value Range Interpretation Code Description Data Isabel rce(s) Supporting Document(s ) Color of YELLOW [facility] [facility] Urine Hospital ID Date Data Source [id number] 10/26/2018 01:23:00 PM EDT [facility] Name Value Range Interpretation Code Description Data Supporting Source(s) Document(s ) Immature 33.2 % [place] [facility] reticulocytes Hospital /Reticulocyte s.total in Blood ID Date Data Source [id number] 10/26/2018 01:23:00 PM EDT [facility] Name Value Range Interpretation Description Data Sup porting Code Source(s) Document(s ) Reticulocytes 0.31 [place] [#/volume] in 10*6/uL Hospital Blood by Automated count ID Date Data Source [id number] 10/26/2018 01:23:00 PM EDT [facility] Name Value Range Interpretation Description Data Sup porting Code Source(s) Document(s ) Reticulocytes/10 10.02 % [facility] [facility] 0 erythrocytes Hospital in Blood by Automated count ID Date Data Source [id number] 10/26/2018 01:23:00 PM EDT [facility] Value Range Interpretation Code Description Data Supporting Source(s) Document(s ) NUCLEATED RBCS 0.8 % [place] [facility] (AUTO Hospital DIFF%)DIS ID Date Data Source [id number] 10/26/2018 01:23:00 PM EDT [facility] Name Value Range Interpretation Description Data Sup porting Code Source(s) Document(s ) Differential AUTOMATED [place] cell count [facility] method - Blood ID Date Data Source [id number] 10/26/2018 01:23:00 PM EDT [facility] Value Range Interpretation Description Data Sup porting Code Source(s) Document(s ) Immature 0.04 [place] [facility] granulocytes 10*3/uL Hospital [#/volume] in Blood by Automated count ID Date Data Source [id number] 10/26/2018 01:23:00 PM EDT [facility] Value Range Interpretation Description Data Sup porting Code Source(s) Document(s ) Basophils 0.05 [place] [#/volume] in 10*3/uL Hospital Blood by Automated count ID Date Data Source [id number] 10/26/2018 01:23:00 PM EDT [facility] Value Range Interpretation Description Data Sup porting Code Source(s) Document(s ) Eosinophils 0.08 [place] [#/volume] in 10*3/uL Hospital Blood by Automated count ID Date Data Source [id number] 10/26/2018 01:23:00 PM EDT [facility] Value Range Interpretation Description Data Sup porting Code Source(s) Document(s ) Monocytes 1.24 [place] [#/volume] in 10*3/uL Hospital Blood by Automated count ID Date Data Source [id number] 10/26/2018 01:23:00 PM EDT [facility] Value Range Interpretation Description Data Sup porting Code Source(s) Document(s ) Lymphocytes 2.06 [place] [#/volume] in 10*3/uL Hospital Blood by Automated count ID Date Data Source [id number] 10/26/2018 01:23:00 PM EDT [facility] Value Range Interpretation Description Data Sup porting Code Source(s) Document(s ) Neutrophils 5.04 [place] [#/volume] in 10*3/uL Hospital Blood by Automated count ID Date Data Source [id number] 10/26/2018 01:23:00 PM EDT [facility] Name Value Range Interpretation Description Data Sup porting Code Source(s) Document(s ) Nucleated 0.8 % [place] erythrocytes/10 Hospital 0 leukocytes [Ratio] in Blood by Automated count ID Date Data Source [id number] 10/26/2018 01:23:00 PM EDT [facility] Name Value Range Interpretation Description Data Sup porting Code Source(s) Document(s ) Immature 0.5 % [place] [facility] granulocytes/10 Hospital 0 leukocytes in Blood by Automated count ID Date Data Source [id number] 10/26/2018 01:23:00 PM EDT [facility] Name Value Range Interpretation Description Data Sup porting Code Source(s) Document(s ) Basophils/100 0.6 % [facility] [facility] leukocytes in Hospital Blood by Automated count ID Date Data Source [id number] 10/26/2018 01:23:00 PM EDT [facility] Value Range Interpretation Description Data Sup porting Code Source(s) Document(s ) Eosinophils/100 0.9 % [place] [facility] leukocytes in Hospital Blood by Automated count ID Date Data Source [id number] 10/26/2018 01:23:00 PM EDT [facility] Value Range Interpretation Description Data Sup porting Code Source(s) Document(s ) Monocytes/100 14.6 % [place] [facility] leukocytes in Hospital Blood by Automated count ID Date Data Source [id number] 10/26/2018 01:23:00 PM EDT [facility] Value Range Interpretation Description Data Sup porting Code Source(s) Document(s ) Lymphocytes/10 24.2 % [place] 0 leukocytes Hospital in Blood by Automated count ID Date Data Source [id number] 10/26/2018 01:23:00 PM EDT [facility] Value Range Interpretation Description Data Sup porting Code Source(s) Document(s ) Neutrophils/10 59.2 % [place] 0 leukocytes Hospital in Blood by Automated count ID Date Data Source [id number] 10/18/2018 07:58:00 PM EDT [facility] Name Value Range Interpretation Description Data Sup porting Code Source(s) Document(s ) HCG QUALITATIVE NEGATIVE [facility] ID Date Data Source [id number] 10/18/2018 07:58:00 PM EDT [facility] Name Value Range Interpretation Description Data Sup porting Code Source(s) Document(s ) HCG QUALITATIVE NEGATIVE [facility] Procedure Social History Code Duration Value Status Description Data Source(s ) Smoking 08/02/2019 Never smoked completed Never smoked [facility] 04:20:00 PM EDT tobacco (finding) tobacco (find ing) Hospital Smoking 06/15/2019 Never smoked completed Never smoked [facility] 12:15:00 PM EDT tobacco (finding) tobacco (find ing) Hospital Smoking 05/04/2019 Tobacco smoking completed Tobacco smoking [facility] 03:55:00 PM EDT consumption consumption Hospita l unknown (finding) unknown (finding) Smoking 04/17/2019 Never smoked completed Never smoked [facility] 01:42:00 PM EST tobacco (finding) tobacco (find ing) Hospital Smoking 02/18/2019 Never smoked completed Never smoked [facility] 03:43:00 AM EST tobacco (finding) tobacco (find ing) Hospital Smoking 01/26/2019 Never smoked completed Never smoked [facility] 07:39:00 PM EST tobacco (finding) tobacco (find ing) Hospital Smoking 01/09/2019 Never smoked completed Never smoked [facility] 10:33:00 AM EST tobacco (finding) tobacco (find ing) Hospital Smoking 12/15/2018 Never smoked completed Never smoked [facility] 03:25:00 AM EST tobacco (finding) tobacco (find ing) Hospital Vital Signs ID Date Data Source UNK Name Value Range Interpretation Code Description Data Source(s) Diastolic blood 70 mm[Hg] 70 mm[Hg] [facility] pressure Hospital Systolic blood 120 mm[Hg] 120 mm[Hg] [facility] pressure [facility] Respiratory rate 18 /min 18 /min [facility] Heart rate 72 /min 72 /min [facility] Body temperature 36.13106 36.52220 Any [facility] Body temperature 97.7 [degF] 97.7 [degF] [facility] Body mass index 37.6 kg/m2 37.6 kg/m2 [facility] ins (BMI) [Ratio] Hospital Body weight 212 [lb_av] 212 [lb_av] [facility] Diastolic blood 68 mm[Hg] 68 mm[Hg] [facility] pressure Hospital Systolic blood 136 mm[Hg] 136 mm[Hg] [facility] pressure [facility] Respiratory rate 20 /min 20 /min [facility] Heart rate 76 /min 76 /min [facility] Body temperature 36.22886 36.08924 Any [facility] Body temperature 97.8 [degF] 97.8 [degF] [facility] Body mass index 37.0 kg/m2 37.0 kg/m2 [facility] ins (BMI) [Ratio] Hospital Body weight 214.44 214.44 [lb_av] [facility] [lb_av] Hospital Diastolic blood 68 mm[Hg] 68 mm[Hg] [facility] ins pressure Hospital Systolic blood 103 mm[Hg] 103 mm[Hg] [facility] pressure [facility] Respiratory rate 17 /min 17 /min [facility] Heart rate 76 /min 76 /min [facility] Body temperature 36.17859 36.00297 Any [facility] Body temperature 97.5 [degF] 97.5 [degF] [facility] Body mass index 37.0 kg/m2 37.0 kg/m2 [facility] ins (BMI) [Ratio] Hospital Body weight 210.43 210.43 [lb_av] [facility] [lb_av] Hospital Diastolic blood 64 mm[Hg] 64 mm[Hg] [facility] pressure Hospital Systolic blood 101 mm[Hg] 101 mm[Hg] [facility] pressure [facility] Respiratory rate 18 /min 18 /min [facility] Heart rate 69 /min 69 /min [facility] Body temperature 36.58611 36.42987 [facility] Body temperature 98.5 [degF] 98.5 [degF] [facility] Body mass index 37.6 kg/m2 37.6 kg/m2 [facility] ([facility] [Ratio[facility] Body weight 212 [lb_av] 212 [lb_av] [facility] Diastolic blood 72 mm[Hg] 72 mm[Hg] [facility] Systolic blood 110 mm[Hg] 110 mm[Hg] [facility] Respiratory rate 18 /min 18 /min [facility] Heart rate 78 /min 78 /min [facility] Body temperature 37.56216 37.41026 [facility] Body temperature 98.8 [degF] 98.8 [degF] [facility] Body mass index 37.6 kg/m2 37.6 kg/m2 [facility] (BMI) [Ratio] [facility] Body weight 212 [lb_av] 212 [lb_av] [facility] Diastolic blood 66 mm[Hg] 66 mm[Hg] [facility] Systolic blood 105 mm[Hg] 105 mm[Hg] [facility] Respiratory rate 18 /min 18 /min [facility] Heart rate 72 /min 72 /min [facility] Body temperature 36.79881 36.03462 [facility] Body temperature 98.2 [degF] 98.2 [degF] [facility] Body mass index 37.0 kg/m2 37.0 kg/m2 [facility] (BMI) [Ratio] [facility] Body weight 213.85 213.85 [lb_av] [facility] ins [lb_av] Hospital Diastolic blood 79 mm[Hg] 79 mm[Hg] [facility] Systolic blood 126 mm[Hg] 126 mm[Hg] [facility] Respiratory rate 18 /min 18 /min [facility] Heart rate 69 /min 69 /min [facility] Body temperature 36.53808 36.60652 [facility] Body temperature 97.8 [degF] 97.8 [degF] [facility] Body mass index 37.2 kg/m2 37.2 kg/m2 [facility] (BMI) [Ratio] [facility] Body weight 210 [lb_av] 210 [lb_av] [facility] Diastolic blood 66 mm[Hg] 66 mm[Hg] [facility] Systolic blood 124 mm[Hg] 124 mm[Hg] [facility] Respiratory rate 18 /min 18 /min [facility] Heart rate 103 /min 103 /min [facility] Body temperature 36.68318 36.27343 [facility] Body temperature 98.2 [degF] 98.2 [degF] [facility] Body mass index 36.0 kg/m2 36.0 kg/m2 [facility] (BMI) [Ratio] [facility] Body weight 205.43 205.43 [lb_av] [facility] [lb_av[facility] Diastolic blood 77 mm[Hg] 77 mm[Hg] [facility] Systolic blood 119 mm[Hg] 119 mm[Hg] [facility] Respiratory rate 18 /min 18 /min [facility] Heart rate 78 /min 78 /min [facility] Body temperature 36.73799 36.72612 [facility] Body temperature 98.3 [degF] 98.3 [degF] [facility] Body mass index 36.0 kg/m2 36.0 kg/m2 [facility] (BMI) [Ratio] [facility] Body weight 205.43 205.43 [lb_av] [facility] [lb_av[facility] Diastolic blood 62 mm[Hg] 62 mm[Hg] [facility] Systolic blood 102 mm[Hg] 102 mm[Hg] [facility] Respiratory rate 18 /min 18 /min [facility] Heart rate 79 /min 79 /min [facility] Body temperature 36.41708 36.46819 [facility] Body temperature 97.4 [degF] 97.4 [degF] [facility] Body mass index 37.0 kg/m2 37.0 kg/m2 [facility] (BMI) [Ratio] [facility] Body weight 209.44 209.44 [lb_av] [facility] Diastolic blood 60 mm[Hg] 60 mm[Hg] [facility] Systolic blood 108 mm[Hg] 108 mm[Hg] [facility] Respiratory rate 18 /min 18 /min [facility] Heart rate 90 /min 90 /min [facility] Body temperature 36.67578 36.17224 [facility] Body temperature 97.9 [degF] 97.9 [degF] [facility] Body mass index 37.0 kg/m2 37.0 kg/m2 [facility] (BMI) [Ratio] [facility] Body weight 210.43 210.43 [lb_av] [facility] [lb_av[facility] Diastolic blood 74 mm[Hg] 74 mm[Hg] [facility] Systolic blood 108 mm[Hg] 108 mm[Hg] [facility] Respiratory rate 18 /min 18 /min [facility] Heart rate 91 /min 91 /min [facility] Body temperature 36.82609 36.79563 [facility] Body temperature 98.4 [degF] 98.4 [degF] [facility] Body mass index 37.0 kg/m2 37.0 kg/m2 [facility] (BMI) [Ratio] [facility] Body weight 210.43 210.43 [lb_av] [facility] [lb_[facility] Diastolic blood 75 mm[Hg] 75 mm[Hg] [facility] Systolic blood 106 mm[Hg] 106 mm[Hg] [facility] Respiratory rate 18 /min 18 /min [facility] Heart rate 69 /min 69 /min [facility] Body temperature 36.52218 36.78857 [facility] Body temperature 98.3 [degF] 98.3 [degF] [facility] Body mass index 36.0 kg/m2 36.0 kg/m2 [facility] (BMI) [Ratio] [facility] Body weight 203.99 203.99 [lb_av] [facility] [[facility] Diastolic blood 61 mm[Hg] 61 mm[Hg] [facility] Systolic blood 122 mm[Hg] 122 mm[Hg] [facility] Respiratory rate 16 /min 16 /min [facility] Heart rate 70 /min 70 /min [facility] Body temperature 36.26975 36.08818 [facility] Body temperature 98.1 [degF] 98.1 [degF] [facility] Body mass index 36.0 kg/m2 36.0 kg/m2 [facility] (BMI) [Ratio] [facility] Body weight 203.42 203.42 [lb_av] [facility] [[facility] Diastolic blood 75 mm[Hg] 75 mm[Hg] [facility] Systolic blood 109 mm[Hg] 109 mm[Hg] [facility] Respiratory rate 20 /min 20 /min [facility] Heart rate 102 /min 102 /min [facility] Body temperature 36.50742 36.15780 [facility] Body temperature 97.5 [degF] 97.5 [degF] [facility] Body mass index 63.0 kg/m2 63.0 kg/m2 [facility] (BMI) [Ratio] [facility] Body weight 396.83 396.83 [lb_av] [facility] [lb_av[facility] Diastolic blood 66 mm[Hg] 66 mm[Hg] [facility] Systolic blood 105 mm[Hg] 105 mm[Hg] [facility] Respiratory rate 19 /min 19 /min [facility] Heart rate 81 /min 81 /min [facility] Body temperature 36.27622 36.12921 [facility] Body temperature 98.4 [degF] 98.4 [degF] [facility] Body mass index 37.0 kg/m2 37.0 kg/m2 [facility] (BMI) [Ratio] [facility] Body weight 211.45 211.45 [lb_av] [facility] [lb_av[facility] Diastolic blood 88 mm[Hg] 88 mm[Hg] [facility] Systolic blood 129 mm[Hg] 129 mm[Hg] [facility] Respiratory rate 19 /min 19 /min [facility] Heart rate 88 /min 88 /min [facility] Body temperature 36.42077 36.02722 [facility] Body temperature 97.5 [degF] 97.5 [degF] [facility] Body mass index 37.0 kg/m2 37.0 kg/m2 [facility] (BMI) [Ratio] [facility] Body weight 213.45 213.45 [lb_av] [facility]lb_av[facility] Diastolic blood 64 mm[Hg] 64 mm[Hg] [facility] Systolic blood 109 mm[Hg] 109 mm[Hg] [facility] Respiratory rate 17 /min 17 /min [facility] Heart rate 74 /min 74 /min [facility] Body temperature 36.41367 36.01647 [facility] Body temperature 97.9 [degF] 97.9 [degF] [facility] Body mass index 34.0 kg/m2 34.0 kg/m2 [facility] (BMI) [Ratio] [facility] Body weight 213.45 213.45 [lb_av] [facility]lb_[facility] Diastolic blood 56 mm[Hg] 56 mm[Hg] [facility] Systolic blood 105 mm[Hg] 105 mm[Hg] [facility] Respiratory rate 18 /min 18 /min [facility] Heart rate 89 /min 89 /min [facility] Body temperature 36.78693 36.35523 [facility] Body temperature 98.2 [degF] 98.2 [degF] [facility] Body mass index 37.0 kg/m2 37.0 kg/m2 [facility] (BMI) [Ratio] [facility] Body weight 211.45 211.45 [lb_av] [facility]lb_av[facility] Diastolic blood 73 mm[Hg] 73 mm[Hg] [facility] Systolic blood 123 mm[Hg] 123 mm[Hg] [facility] Respiratory rate 20 /min 20 /min [facility] Heart rate 100 /min 100 /min [facility] Body temperature 36.06646 36.51309 [facility] Body temperature 97.1 [degF] 97.1 [degF] [facility] Body mass index 37.0 kg/m2 37.0 kg/m2 [facility] (BMI) [Ratio] [facility] Body weight 211.45 211.45 [lb_av] [facility] Diastolic blood 70 mm[Hg] 70 mm[Hg] [facility] Systolic blood 102 mm[Hg] 102 mm[Hg] [facility] Respiratory rate 18 /min 18 /min [facility] Heart rate 83 /min 83 /min [facility] Body temperature 36.65303 36.62737 [facility] Body temperature 97.9 [degF] 97.9 [degF] [facility] Body mass index 38.0 kg/m2 38.0 kg/m2 [facility] (BMI) [Ratio] [facility] Body weight 216.45 216.45 [lb_av] [facility] [[facility] Diastolic blood 54 mm[Hg] 54 mm[Hg] [facility] Systolic blood 116 mm[Hg] 116 mm[Hg] [facility] Respiratory rate 16 /min 16 /min [facility] Heart rate 77 /min 77 /min [facility] Body temperature 36.91769 36.13755 [facility] Body temperature 98.5 [degF] 98.5 [degF] [facility] Body mass index 37.0 kg/m2 37.0 kg/m2 [facility] (BMI) [Ratio] [facility] Body weight 213.85 213.85 [lb_av] [facility]lb_av[facility] Diastolic blood 77 mm[Hg] 77 mm[Hg] [facility] Systolic blood 120 mm[Hg] 120 mm[Hg] [facility] Respiratory rate 20 /min 20 /min [facility] Heart rate 82 /min 82 /min [facility] Body temperature 36.16285 36.44087 [facility] Body temperature 98.1 [degF] 98.1 [degF] [facility] Body mass index 37.0 kg/m2 37.0 kg/m2 [facility] (BMI) [Ratio] [facility] Body weight 209.88 209.88 [lb_av] [facility] [lb_av[facility] Diastolic blood 70 mm[Hg] 70 mm[Hg] [facility] Systolic blood 104 mm[Hg] 104 mm[Hg] [facility] Respiratory rate 18 /min 18 /min [facility] Heart rate 82 /min 82 /min [facility] Body temperature 36.16384 36.57582 [facility] Body temperature 98.2 [degF] 98.2 [degF] [facility] Body mass index 37.0 kg/m2 37.0 kg/m2 [facility] ([facility]) [Ratio] [facility] Body weight 213.45 213.45 [lb_av] [facility] [[facility]
[2019-12-14] MEDS ORDERED: DOCUSATE SODIUM 100 MG CAPSULE (FP) PO ONE ×2 (18:45→18:51)
[2019-12-14] MEDS ORDERED: HYDROmorphone HCL CARPU-JECT 2 MG/1 ML DISP.SYRIN IVPUSH ONE ×4 (18:45→21:14)
[2019-12-14] MEDS ORDERED: HYDROmorphone HCl 2 MG/ML VIAL ONE ×5 (18:50→22:00)
[2019-12-14 19:43] LABS: HEMATOCRIT 27.6 % (32.4-45.2); HEMOGLOBIN 9.2 GM/dL (10.7-15.3); MCH 29.1 pg (25.7-33.7); MCHC 33.2 g/dl (32.0-36.0); MEAN CELL VOLUME 87.4 fl (80-96); MEAN PLT VOLUME 7.9 fl (7.5-11.1); PLATELET COUNT 265 K/MM3 (134-434); RBC 3.16 M/mm3 (3.60-5.2); RDW 22.2 % (11.6-15.6); RETICULOCYTES 8.34 % (0.5-1.5); WHITE BLOOD COUNT 8.5 K/mm3 (4.0-10.0)
[2019-12-14 19:55] LABS: ADD RBC MORPHOLOGY YES
[2019-12-14 19:59] LABS: CHLORIDE 107 mmol/L (98-107); POTASSIUM 4.2 mmol/L (3.5-5.1); SODIUM 139 mmol/L (136-145)
[2019-12-14 20:01] LABS: ALBUMIN 3.6 g/dl (3.4-5.0); CALCIUM 8.8 mg/dL (8.5-10.1)
[2019-12-14 20:02] LABS: ANION GAP 4 MMOL/L (8-16); CO2 28 mmol/L (21-32); GLUCOSE,RANDOM 102 mg/dL (74-106)
[2019-12-14 20:06] LABS: CREATININE 0.6 mg/dL (0.55-1.3); SGOT/AST 64 U/L (15-37); SGPT/ALT 32 U/L (13-61); TOT PROT 8.7 g/dl (6.4-8.2)
--- NOTE | 2019-12-14 20:06 | PDOC ---
History of Present Illness - General Chief Complaint: Chest Pain Stated Complaint: SICKLE CELL Time Seen by Provider: 12/14/19 17:36 - History of Present Illness Initial Comments: 29 yo F PMH sickle cell disease, cirrhosis, portal vein thrombosis, right atrial clot, portal hypertension with esophageal varices, liver mass, who presents with back, chest, and knee pain. Pt states that this pain is similar to prior pain crises and has multiple ED visits this year for similar complaints. States that it began 4 days ago, constant, improved with oxycodone 30mg q4h, described as throbbing/stabbing, located substernal and radiating to back. Denies SOB, AYALA, f/c, recent travel, sick contacts, abdominal pain, n/v. Requests Dilaudid 2-4mg and Benadryl 50mg Bottom Turning Lathe Tender: Lei Gonzalez PMH: see above Meds: see chart Allergies: morphine Review of Systems CONSTITUTIONAL: denies fever, chills HEENT: denies rhinorrhea, nasal congestion, sore throat CARDIOVASCULAR: reports chest pain, denies syncope, palpitations, lightheadedness, peripheral edema RESPIRATORY: denies cough, shortness of breath GASTROINTESTINAL: denies abdominal pain, nausea, vomiting, diarrhea, constipation GENITOURINARY: denies dysuria, frequency, urgency MUSCULOSKELETAL: reports back pain, knee pain ENDOCRINE: denies unexplained weight gain, unexplained weight loss NEUROLOGIC: denies headache, focal weakness or paresthesias, dizziness SKIN: denies rash, itching, pallor Physical Exam General: awake, alert, fully oriented, in mild distress, well developed, well nourished Head: normocephalic, atraumatic Eyes: PERRL, anicteric sclera, conjunctiva clear ENT: hearing grossly normal, moist mucous membranes Lung: equal breath sounds b/l, CTA b/l, no crackles, wheezes Heart: RRR, normal S1, S2, no murmurs appreciated, TTP of substernal/epigastric region Abdomen: soft, non tender, normoactive bowel sounds, no guarding, rebound, masses Back: diffusely TTP in mid and lower back Extremities: no edema, no erythema or tenderness, radial/PT pulses 2+ and symmetric Neuro: CN2-12 grossly intact, moves all extremities, normal speech, normal gait, sensation intact Skin: warm, dry, normal skin turgor, capillary refill <2 seconds, port noted on right side MDM 29 yo F PMH sickle cell disease, cirrhosis, portal vein thrombosis, right atrial clot, portal hypertension with esophageal varices, liver mass, who presents with back, chest, and knee pain. Vitals significant for: tachycardia DDx including but not limited to: sickle pain crises, ACS, electrolyte abnormality Workup: CBC, reticulocyte count, CMP, trop TX: pain control ED course Labs: chronic anemia, elevated retic count, electrolytes WNL Pt given 1mg dilaudid, 25mg IV benadryl - stating that this has no effect on her pain, requesting to speak with attending - As discussed with attending, will give patient additional 2mg dilaudid Pt stating that she usually receives 6mg dilaudid, feels that pain is not under control - presented letter from supervisor wire rope fabrication Dr. Deirdre Pavon at [place] from 10/2018, recommending 6mg dilaudid x2, with possible additional dose of 2-4mg if pain is not controlled, PO benadryl 50mg, loratadine, cetirizine Re-assessment: Patient stable for discharge. pain controlled. Informed of all lab results. Given follow up instructions and strict return precautions. Patient expressed understanding and agree to plan Disposition: Discharge Past History - Medical History Allergies/Adverse Reactions: Allergies Allergy/AdvReac Type Severity Reaction Status Date / Time morphine Allergy Verified 12/14/19 17:22 Home Medications: Ambulatory Orders Folic Acid 2 mg PO DAILY 04/26/16 Hydroxyurea [Hydrea] 500 mg PO BID 04/26/16 Apixaban [Eliquis] 5 mg PO BID 04/13/19 oxyCODONE HCL [Oxycodone HCl] 30 mg PO Q4H PRN 04/13/19 Propranolol HCl 40 mg PO HS 09/19/19 Amoxicillin/Potassium Clav [Augmentin 875-125 Tablet] 1 each PO BID #20 tablet 11/30/19 Anemia: Yes (sickle cell) Asthma: No Cancer: No Cardiac Disorders: Yes (RIGHT ATRIAL CLOT (RESOLVED)) CVA: No COPD: No CHF: No DVT: No Dementia: No Diabetes: No GI Disorders: Yes (BENIGN LIVER CYST) Disorders: No HTN: Yes (Portal hypertension) Hypercholesterolemia: No Liver Disease: Yes (Cirrhosis) Seizures: No Thyroid Disease: No - Surgical History Abdominal Surgery: Yes (spleen 6 yrs old) Appendectomy: Yes Cardiac Surgery: No Cholecystectomy: Yes Lung Surgery: No Neurologic Surgery: No Orthopedic Surgery: No - Reproductive History Is Patient Now?: No - Immunization History Immunization Up to Date: No - Psycho-Social/Smoking History Smoking History: Never smoked Have you smoked in the past 12 months: No 'Breaking Loose' booklet given: 08/20/17 - Substance Abuse Hx (Audit-C & DAST Scrn) How often the patient has a drink containing alcohol: Never Score: In Men: 4 or > Positive; In Women: 3 or > Positive: 0 Screen Result (Pos requires Nsg. Audit-10AR): Negative In the last yr the pt used illegal drug/Rx for NonMed reason: No Score: Yes response is considered Positive: 0 Screen Result (Positive result requires Nsg. DAST-10): Negative *Physical Exam - Vital Signs Last Vital Signs Temp Pulse Resp BP Pulse Ox 97.5 F L 106 H 16 112/68 100 12/14/19 17:22 12/14/19 17:22 12/14/19 17:22 12/14/19 17:22 12/14/19 17:22 ED Treatment Course - LABORATORY CBC & Chemistry Diagram: 12/14/19 19:11 12/14/19 19:11 - Medications Given in the ED: ED Medications Discontinued Medications Generic Name Dose Route Start Last Admin Trade Name Freq PRN Reason Stop Dose Admin Diphenhydramine HCl 25 mg 12/14/19 18:45 12/14/19 19:09 Benadryl Injection - IVPB 12/14/19 18:46 25 mg ONCE ONE Administration Docusate Sodium 100 mg 12/14/19 18:45 12/14/19 19:09 Colace - PO 12/14/19 18:46 100 mg ONCE ONE Administration Hydromorphone HCl 1 mg 12/14/19 18:45 12/14/19 19:09 Dilaudid Injection - IVPUSH 12/14/19 18:46 1 mg ONCE ONE Administration Discharge - Discharge Information Problems reviewed: Yes Clinical Impression/Diagnosis: Sickle cell crisis Condition: Stable Disposition: HOME - Follow up/Referral - Patient Discharge Instructions Patient Printed Discharge Instructions: DI for Sickle Cell Anemia, Pain Crisis -- Adult Additional Instructions: You were seen in the ED for your body pains due to a sickle cell pain crisis. Your exam and blood work showed no signs of infection or other major problems at this time. Please follow-up with your primary doctor or supervisor wire rope fabrication within the next 2-3 days for a recheck and further recommendations on management of your sickle cell disease. In the meantime, continue to use your prescribed pain medication. Please be cautious with the use of these medications, as they may result in drowsiness; please don't use these medications before driving, swimming, or any other potentially dangerous activities. Please return to the ER if you have: - pain that is not controlled with medications -weakness of any part of your body -fever of 100.4 or higher -difficulty breathing or chest pain -any other new or concerning symptoms Thank you for coming to the [facility] ER. We hope you feel better soon! - Post Discharge Activity
[2019-12-14 20:07] LABS: ALK PHOS 189 U/L (45-117)
[2019-12-14 21:15] LABS: ANISOCYTOSIS 0; MACROCYTOSIS 0; PLATELET ESTIMATE NORMAL; SICKELED CELLS 2+; TARGET CELLS 2+
[2019-12-14] MEDS ORDERED: HYDROmorphone HCL CARPU-JECT 2 MG/1 ML DISP.SYRIN IVPB STA (21:54)
[2019-12-14 23:14] VITALS: BP 110/81; PULSE 84; TEMP 98.9
--- NOTE | 2019-12-15 10:22 | EKG ---
Test Reason : Blood Pressure : / mmHG Vent. Rate : 088 BPM Atrial Rate : 088 BPM P-R Int : 178 ms QRS Dur : 088 ms QT Int : 368 ms P-R-T Axes : 055 067 050 degrees QTc Int : 445 ms NORMAL SINUS RHYTHM WITH SINUS ARRHYTHMIA NORMAL ECG WHEN COMPARED WITH ECG OF 17-OCT-2019 00:30, NO SIGNIFICANT CHANGE WAS FOUND Confirmed by MD OH PENG ([id number]) on 12/15/2019 10:22:11 AM Referred By: Confirmed By:LG OH MD
== END 2019-12-14 23:14 | disposition home or self-care (01) ==
LOC: JER 17:19
PROC: 3E033GC Introduction of Other Therapeutic Substance into Peripheral Vein, Percutaneous Approach (ICD-10-PCS; principal; 2019-12-14)
PROC: 3E033GC Introduction of Other Therapeutic Substance into Peripheral Vein, Percutaneous Approach (ICD-10-PCS; 2019-12-14)
PROC: 3E033GC Introduction of Other Therapeutic Substance into Peripheral Vein, Percutaneous Approach (ICD-10-PCS; 2019-12-14)
PROC: 3E033GC Introduction of Other Therapeutic Substance into Peripheral Vein, Percutaneous Approach (ICD-10-PCS; 2019-12-14)
PROC: 3E033NZ Introduction of Analgesics, Hypnotics, Sedatives into Peripheral Vein, Percutaneous Approach (ICD-10-PCS; 2019-12-14)
PROC: 3E033NZ Introduction of Analgesics, Hypnotics, Sedatives into Peripheral Vein, Percutaneous Approach (ICD-10-PCS; 2019-12-14)
PROC: 3E033NZ Introduction of Analgesics, Hypnotics, Sedatives into Peripheral Vein, Percutaneous Approach (ICD-10-PCS; 2019-12-14)
PROC: 3E033NZ Introduction of Analgesics, Hypnotics, Sedatives into Peripheral Vein, Percutaneous Approach (ICD-10-PCS; 2019-12-14)
DX: D57.219 Sickle-cell/Hb-C disease with crisis, unspecified (principal)
CPT/HCPCS: 36415; 71046-TC-FY; 80053; 82550; 84484; 84703; 85025; 85045; 93005; 93010; 99285-25

== ENCOUNTER 2019-12-23 17:30 | Emergency (ER) | payer OTHER ==
[2019-12-23 17:37] VITALS: BMI 34.2
[2019-12-23] MEDS ORDERED: SODIUM CHLORIDE 1,000 ML IV STA (17:41)
[2019-12-23] MEDS ORDERED: ACETAMINOPHEN 1000 MG/100 ML VIAL (NON FORMULARY) IVPB ONE (17:41)
[2019-12-23] MEDS ORDERED: HYDROmorphone HCL CARPU-JECT 2 MG/1 ML DISP.SYRIN IVPUSH ONE ×2 (20:48→22:48)
[2019-12-23] MEDS ORDERED: ACETAMINOPHEN INJECTION 100 ML IVPB ONE (20:49)
[2019-12-23] MEDS ORDERED: HYDROmorphone HCl 2 MG/ML VIAL ONE ×2 (21:37→22:53)
[2019-12-23 21:43] LABS: EPI CELLS 34 /uL (0-25.1); HCG,QUALITATIVE URINE Negative; HYALINE CASTS 0 /uL (0-3.1); URINE APPEARANCE CLEAR; URINE BACTERIA 377 /uL (0-1359); URINE BILIRUBIN NEGATIVE (NEGATIVE); URINE COLOR YELLOW; URINE GLUCOSE (UA) NEGATIVE (NEGATIVE); URINE KETONE NEGATIVE (NEGATIVE); URINE LEUK ESTERASE NEGATIVE (NEGATIVE); URINE NITRITE NEGATIVE (NEGATIVE); URINE PROTEIN TRACE (NEGATIVE); URINE RBC 34 /uL (0-23.9); URINE WBC 18 /uL (0-25.8)
[2019-12-23 21:54] LABS: HEMATOCRIT 25.6 % (32.4-45.2); HEMOGLOBIN 8.8 GM/dL (10.7-15.3); MCH 29.4 pg (25.7-33.7); MCHC 34.3 g/dl (32.0-36.0); MEAN CELL VOLUME 85.7 fl (80-96); MEAN PLT VOLUME 8.2 fl (7.5-11.1); PLATELET COUNT 224 K/MM3 (134-434); RBC 2.99 M/mm3 (3.60-5.2); RDW 21.2 % (11.6-15.6); RETICULOCYTES 7.78 % (0.5-1.5); WHITE BLOOD COUNT 8.6 K/mm3 (4.0-10.0)
[2019-12-23 22:24] LABS: ALBUMIN 3.7 g/dl (3.4-5.0); BILIRUBIN,TOTAL 2.3 mg/dL (0.2-1); BLOOD UREA NITROGEN 9.8 mg/dL (7-18); CALCIUM 8.7 mg/dL (8.5-10.1); CREATININE 1.1 mg/dL (0.55-1.3); POTASSIUM 3.9 mmol/L (3.5-5.1); TOT PROT 8.5 g/dl (6.4-8.2)
[2019-12-23 22:35] LABS: ADD RBC MORPHOLOGY YES
[2019-12-23 23:39] LABS: ANISOCYTOSIS 2+; MACROCYTOSIS 0; PLATELET ESTIMATE NORMAL; SICKELED CELLS 2+; TARGET CELLS 2+
[2019-12-24 00:27] VITALS: BP 119/76; PULSE 92; TEMP 98.4
== END 2019-12-23 23:05 | disposition home or self-care (01) ==
LOC: JER 17:30
PROC: 3E033NZ Introduction of Analgesics, Hypnotics, Sedatives into Peripheral Vein, Percutaneous Approach (ICD-10-PCS; principal; 2019-12-23)
PROC: 3E033GC Introduction of Other Therapeutic Substance into Peripheral Vein, Percutaneous Approach (ICD-10-PCS; 2019-12-23)
PROC: 3E0337Z Introduction of Electrolytic and Water Balance Substance into Peripheral Vein, Percutaneous Approach (ICD-10-PCS; 2019-12-23)
DX: D57.00 Hb-SS disease with crisis, unspecified (principal)
CPT/HCPCS: 36415; 80053; 81003; 84703; 85025; 85045; 87086; 99285-25; J0131

== ENCOUNTER 2020-01-20 17:17 | Emergency (ER) | payer OTHER ==
[2020-01-20 17:36] VITALS: TEMP 97.8; BMI 37.5
[2020-01-20] MEDS ORDERED: HYDROmorphone HCL CARPU-JECT 2 MG/1 ML DISP.SYRIN IVPUSH ONE ×2 (18:10→21:40)
[2020-01-20] MEDS ORDERED: SODIUM CHLORIDE 1,000 ML IV STA (18:11)
[2020-01-20] MEDS ORDERED: HYDROmorphone HCl 2 MG/ML VIAL ONE ×2 (19:52→21:42)
[2020-01-20] MEDS ORDERED: ONDANSETRON 4 MG/2 ML VIAL IVPB ONE (20:03)
[2020-01-20] MEDS ORDERED: ONDANSETRON 4 MG/2 ML VIAL ONE (20:03)
[2020-01-20 20:19] LABS: BASO % 1.4 % (0-2.0); EOS % 0.8 % (0-4.5); HEMATOCRIT 28.9 % (32.4-45.2); HEMOGLOBIN 9.6 GM/dL (10.7-15.3); LYMPH % 19.5 % (8-40); MCH 29.7 pg (25.7-33.7); MCHC 33.3 g/dl (32.0-36.0); MEAN CELL VOLUME 89.3 fl (80-96); MEAN PLT VOLUME 8.4 fl (7.5-11.1); MONO % 14.7 % (3.8-10.2); NEUT % 63.6 % (42.8-82.8); RBC 3.23 M/mm3 (3.60-5.2); RDW 23.2 % (11.6-15.6); WHITE BLOOD COUNT 8.8 K/mm3 (4.0-10.0)
[2020-01-20] MEDS ORDERED: ONDANSETRON 4 MG/2 ML VIAL IVPUSH ONE (20:22)
[2020-01-20 20:39] LABS: POTASSIUM 4.3 mmol/L (3.5-5.1)
[2020-01-20 20:41] LABS: CALCIUM 8.7 mg/dL (8.5-10.1)
[2020-01-20 20:42] LABS: ALBUMIN 3.7 g/dl (3.4-5.0); BLOOD UREA NITROGEN 11.2 mg/dL (7-18)
[2020-01-20 20:45] LABS: CREATININE 0.7 mg/dL (0.55-1.3)
[2020-01-20 20:46] LABS: BILIRUBIN,TOTAL 2.2 mg/dL (0.2-1); TOT PROT 9.1 g/dl (6.4-8.2)
[2020-01-20 21:41] LABS: ANISOCYTOSIS 2+; MACROCYTOSIS 1+; PLATELET ESTIMATE NORMAL; SICKELED CELLS 2+; TARGET CELLS 1+
[2020-01-20 21:47] LABS: PLATELET COUNT 218 K/MM3 (134-434)
[2020-01-21 01:09] VITALS: BP 125/71; PULSE 101
== END 2020-01-20 22:30 | disposition home or self-care (01) ==
LOC: JER 17:17
PROC: 3E033GC Introduction of Other Therapeutic Substance into Peripheral Vein, Percutaneous Approach (ICD-10-PCS; principal; 2020-01-20)
PROC: 3E033GC Introduction of Other Therapeutic Substance into Peripheral Vein, Percutaneous Approach (ICD-10-PCS; 2020-01-20)
PROC: 3E033GC Introduction of Other Therapeutic Substance into Peripheral Vein, Percutaneous Approach (ICD-10-PCS; 2020-01-20)
PROC: 3E033NZ Introduction of Analgesics, Hypnotics, Sedatives into Peripheral Vein, Percutaneous Approach (ICD-10-PCS; 2020-01-20)
PROC: 3E033NZ Introduction of Analgesics, Hypnotics, Sedatives into Peripheral Vein, Percutaneous Approach (ICD-10-PCS; 2020-01-20)
PROC: 3E033GC Introduction of Other Therapeutic Substance into Peripheral Vein, Percutaneous Approach (ICD-10-PCS; 2020-01-20)
PROC: 3E0337Z Introduction of Electrolytic and Water Balance Substance into Peripheral Vein, Percutaneous Approach (ICD-10-PCS; 2020-01-20)
DX: D57.00 Hb-SS disease with crisis, unspecified (principal)
CPT/HCPCS: 36415; 80053; 84703; 85025; 99284-25

== ENCOUNTER 2020-01-26 20:53 | Emergency (ER) | payer OTHER ==
[2020-01-26 21:05] VITALS: TEMP 97.9; BMI 38.0
[2020-01-26] MEDS ORDERED: SODIUM CHLORIDE 1,000 ML IV ONE (21:09)
[2020-01-26] MEDS ORDERED: HYDROmorphone HCL CARPU-JECT 1 MG/1 ML DISP.SYRIN IVPUSH ONE ×2 (21:09→21:58)
[2020-01-26 21:23] LABS: HEMATOCRIT 27.2 % (32.4-45.2); MCH 29.9 pg (25.7-33.7); MEAN CELL VOLUME 90.7 fl (80-96); PLATELET COUNT 283 K/MM3 (134-434); RDW 21.1 % (11.6-15.6); WHITE BLOOD COUNT 7.7 K/mm3 (4.0-10.8)
[2020-01-26] MEDS ORDERED: HYDROmorphone HCl 2 MG/ML VIAL ONE ×3 (21:23→22:43)
[2020-01-26] MEDS ORDERED: ONDANSETRON 4 MG/2 ML VIAL ONE (21:23)
[2020-01-26] MEDS ORDERED: ONDANSETRON 4 MG/2 ML VIAL IVPB ONE (21:33)
[2020-01-26 21:38] LABS: ALBUMIN 3.7 g/dl (3.4-5.0); BILIRUBIN,TOTAL 2.3 mg/dl (0.2-1); CALCIUM 8.7 mg/dl (8.5-10); CREATININE 0.6 mg/dl (0.55-1.3)
[2020-01-26 21:49] LABS: ANISOCYTOSIS 2+; SICKELED CELLS 2+; TARGET CELLS 2+
[2020-01-26 21:50] LABS: PLATELET ESTIMATE ADEQUATE
[2020-01-26 22:14] VITALS: BP 107/67; PULSE 83
[2020-01-26] MEDS ORDERED: HYDROmorphone HCL CARPU-JECT 2 MG/1 ML DISP.SYRIN IVPUSH ONE (22:40)
[2020-01-26 22:56] LABS: EPITHELIAL CELLS FEW /hpf
== END 2020-01-27 00:05 | disposition home or self-care (01) ==
LOC: FER 20:53
PROC: 3E033GC Introduction of Other Therapeutic Substance into Peripheral Vein, Percutaneous Approach (ICD-10-PCS; principal; 2020-01-26)
PROC: 3E033GC Introduction of Other Therapeutic Substance into Peripheral Vein, Percutaneous Approach (ICD-10-PCS; 2020-01-26)
PROC: 3E033GC Introduction of Other Therapeutic Substance into Peripheral Vein, Percutaneous Approach (ICD-10-PCS; 2020-01-26)
PROC: 3E033NZ Introduction of Analgesics, Hypnotics, Sedatives into Peripheral Vein, Percutaneous Approach (ICD-10-PCS; 2020-01-26)
PROC: 3E033NZ Introduction of Analgesics, Hypnotics, Sedatives into Peripheral Vein, Percutaneous Approach (ICD-10-PCS; 2020-01-26)
PROC: 3E033NZ Introduction of Analgesics, Hypnotics, Sedatives into Peripheral Vein, Percutaneous Approach (ICD-10-PCS; 2020-01-26)
PROC: 3E033GC Introduction of Other Therapeutic Substance into Peripheral Vein, Percutaneous Approach (ICD-10-PCS; 2020-01-26)
PROC: 3E0337Z Introduction of Electrolytic and Water Balance Substance into Peripheral Vein, Percutaneous Approach (ICD-10-PCS; 2020-01-26)
DX: D57.219 Sickle-cell/Hb-C disease with crisis, unspecified (principal)
CPT/HCPCS: 36415; 80053; 81003; 81015; 85025; 85045; 99284-25

== ENCOUNTER 2020-02-02 20:50 | Emergency (ER) | payer OTHER ==
[2020-02-02 21:02] VITALS: BP 127/75; PULSE 94; TEMP 98.1; BMI 38.0
[2020-02-02] MEDS ORDERED: HYDROmorphone HCL CARPU-JECT 1 MG/1 ML DISP.SYRIN IVPUSH ONE ×2 (22:04→23:26)
[2020-02-02] MEDS ORDERED: SODIUM CHLORIDE 1,000 ML IV ONE (22:14)
[2020-02-02] MEDS ORDERED: HYDROmorphone HCl 2 MG/ML VIAL ONE ×2 (22:17→23:35)
[2020-02-03] MEDS ORDERED: HYDROmorphone HCL CARPU-JECT 1 MG/1 ML DISP.SYRIN IVPUSH ONE (01:02)
[2020-02-03] MEDS ORDERED: HYDROmorphone HCl 2 MG/ML VIAL ONE (01:07)
[2020-02-03] MEDS ORDERED: HYDROmorphone HCL/PF 1 MG/ML VIAL ONE (01:07)
== END 2020-02-03 02:13 | disposition home or self-care (01) ==
LOC: FER 20:50
PROC: 3E0337Z Introduction of Electrolytic and Water Balance Substance into Peripheral Vein, Percutaneous Approach (ICD-10-PCS; principal; 2020-02-02)
PROC: 3E033GC Introduction of Other Therapeutic Substance into Peripheral Vein, Percutaneous Approach (ICD-10-PCS; principal; 2020-02-02)
PROC: 3E033GC Introduction of Other Therapeutic Substance into Peripheral Vein, Percutaneous Approach (ICD-10-PCS; 2020-02-03)
DX: D57.00 Hb-SS disease with crisis, unspecified (principal)
CPT/HCPCS: 99284-25

== ENCOUNTER 2020-02-13 12:47 | Emergency (ER) | payer OTHER ==
[2020-02-13 13:22] VITALS: TEMP 98.6; BMI 38.2
[2020-02-13] MEDS ORDERED: HYDROmorphone HCL CARPU-JECT 2 MG/1 ML DISP.SYRIN IVPUSH ONE ×2 (13:35→17:55)
[2020-02-13] MEDS ORDERED: LACTATED RINGERS SOLUTION 1000 ML INFUS.BAG IV ONE (14:15)
[2020-02-13] MEDS ORDERED: HYDROmorphone HCl 2 MG/ML VIAL ONE ×3 (14:24→18:03)
[2020-02-13 14:26] LABS: HEMATOCRIT 27.9 % (32.4-45.2); HEMOGLOBIN 9.6 GM/dl (10.7-15.3); MCH 30.6 pg (25.7-33.7); MCHC 34.3 g/dl (32.0-36.0); MEAN CELL VOLUME 89.3 fl (80-96); MEAN PLT VOLUME 7.9 fl (7.5-11.1); PLATELET COUNT 305 K/MM3 (134-434); RBC 3.12 M/mm3 (3.60-5.2); RDW 21.3 % (11.6-15.6); WHITE BLOOD COUNT 8.7 K/mm3 (4.0-10.8)
[2020-02-13 14:45] LABS: HCG,QUALITATIVE URINE Negative
[2020-02-13 14:48] LABS: EPITHELIAL CELLS MANY /hpf
[2020-02-13 14:55] LABS: ALBUMIN 3.8 g/dl (3.4-5.0); BILIRUBIN,TOTAL 2.6 mg/dl (0.2-1); CALCIUM 8.6 mg/dl (8.5-10); TOT PROT 8.4 g/dl (6.4-8.2)
[2020-02-13 14:56] LABS: PLATELET ESTIMATE ADEQUATE
[2020-02-13 15:02] LABS: CREATININE 0.6 mg/dl (0.55-1.3)
[2020-02-13] MEDS ORDERED: HYDROmorphone HCL CARPU-JECT 1 MG/1 ML DISP.SYRIN IVPUSH ONE (15:09)
[2020-02-13 18:56] VITALS: BP 103/52; PULSE 59
== END 2020-02-13 18:57 | disposition home or self-care (01) ==
LOC: FER 12:47
PROC: 3E033NZ Introduction of Analgesics, Hypnotics, Sedatives into Peripheral Vein, Percutaneous Approach (ICD-10-PCS; principal; 2020-02-13)
PROC: 3E033GC Introduction of Other Therapeutic Substance into Peripheral Vein, Percutaneous Approach (ICD-10-PCS; 2020-02-13)
DX: D57.00 Hb-SS disease with crisis, unspecified (principal)
CPT/HCPCS: 36415; 71046-TC-FY; 80053; 81003; 81015; 84703; 85025; 85045; 99285-25

== ENCOUNTER 2020-02-26 21:32 | Inpatient (IN) | payer OTHER ==
[2020-02-26] MEDS ORDERED: HYDROmorphone HCL CARPU-JECT 1 MG/1 ML DISP.SYRIN IVPUSH ONE (22:08)
[2020-02-26] MEDS ORDERED: SODIUM CHLORIDE 1,000 ML IV ONE (22:09)
[2020-02-26] MEDS ORDERED: HYDROmorphone HCl 2 MG/ML VIAL ONE (22:12)
[2020-02-27] MEDS ORDERED: HYDROmorphone HCL CARPU-JECT 1 MG/1 ML DISP.SYRIN IVPUSH ONE ×2 (00:07→00:40)
[2020-02-27] MEDS ORDERED: HYDROmorphone HCl 2 MG/ML VIAL ONE ×2 (00:08→00:53)
[2020-02-27 00:23] LABS: BASO % 1.1 % (0-2.0); EOS % 0.8 % (0-4.5); HEMATOCRIT 27.2 % (32.4-45.2); HEMOGLOBIN 9.2 GM/dL (10.7-15.3); LYMPH % 29.9 % (8-40); MCH 29.6 pg (25.7-33.7); MCHC 33.7 g/dl (32.0-36.0); MEAN CELL VOLUME 87.7 fl (80-96); MONO % 18.7 % (3.8-10.2); NEUT % 49.5 % (42.8-82.8); PLATELET COUNT 233 K/MM3 (134-434); RDW 21.7 % (11.6-15.6); WHITE BLOOD COUNT 7.6 K/mm3 (4.0-10.0)
[2020-02-27 00:37] LABS: POTASSIUM 4.2 mmol/L (3.5-5.1)
[2020-02-27 00:39] LABS: ALBUMIN 3.6 g/dl (3.4-5.0); BLOOD UREA NITROGEN 10.4 mg/dL (7-18); CALCIUM 8.9 mg/dL (8.5-10.1)
[2020-02-27 00:42] LABS: CREATININE 0.9 mg/dL (0.55-1.3)
[2020-02-27 00:43] LABS: BILIRUBIN,TOTAL 2.4 mg/dL (0.2-1); TOT PROT 8.7 g/dl (6.4-8.2)
[2020-02-27 01:59] VITALS: BP 97/69; PULSE 98; TEMP 98
[2020-02-27] MEDS ORDERED: SODIUM CHLORIDE 1,000 ML IV SCH (02:00)
[2020-02-27] MEDS ORDERED: HYDROmorphone HCl 2 MG/ML VIAL IVPUSH ONE ×2 (02:58→05:41)
[2020-02-27 03:44] VITALS: BMI 39.4
[2020-02-27 05:50] LABS: ANISOCYTOSIS 2+; MACROCYTOSIS 1+; PLATELET ESTIMATE NORMAL; SICKELED CELLS 2+; TARGET CELLS 2+
[2020-02-27] MEDS ORDERED: PATIENT'S OWN MEDICATION (NON-FORMULARY) (Oxycodone Hcl [Oxycontin] 30 MG Tab.Er.12h) PO PRN (09:43)
[2020-02-27] MEDS ORDERED: HYDROXYUREA 500 MG CAPSULE PO SCH ×2 (10:00)
[2020-02-27] MEDS ORDERED: FOLIC ACID 1 MG TABLET (FP) PO SCH ×2 (10:00)
[2020-02-27] MEDS ORDERED: APIXABAN 5 MG TABLET PO SCH ×2 (10:00)
[2020-02-27] MEDS ORDERED: GABAPENTIN 400 MG CAPSULE PO SCH (10:00)
[2020-02-27] MEDS ORDERED: oxyCODONE HCL 40 MG SUSTAINED ACTING TABLET PO PRN (10:19)
[2020-02-27] MEDS ORDERED: oxyCODONE HCL 5 MG TABLET PO PRN ×3 (10:24→10:33)
== END 2020-02-27 11:58 | disposition home or self-care (01) | DRG 812 ==
LOC: FER 21:32 → FM/S 02-27 01:32
PROVIDERS: ADMIT Internal Medicine; ATTEND Nurse Practitioner Acute Care
DX: D57.00 Hb-SS disease with crisis, unspecified (principal); K76.6 Portal hypertension; I85.00 Esophageal varices without bleeding
CPT/HCPCS: 36415; 71045-TC-FY; 73560-TC-RT-FY; 80053; 81025; 84703; 85025; 85045; 93005; 99285-25; C9803; J8999; U0003

== ENCOUNTER 2020-03-16 10:33 | Emergency (ER) | payer OTHER ==
[2020-03-16 10:49] VITALS: TEMP 97.9; BMI 84.3
[2020-03-16] MEDS ORDERED: HYDROmorphone HCL CARPU-JECT 2 MG/1 ML DISP.SYRIN IVPUSH ONE ×3 (11:47→16:45)
[2020-03-16] MEDS ORDERED: SODIUM CHLORIDE 1,000 ML IV STA (11:47)
[2020-03-16] MEDS ORDERED: ONDANSETRON 4 MG/2 ML VIAL IVPB ONE (11:47)
[2020-03-16] MEDS ORDERED: HYDROmorphone HCl 2 MG/ML VIAL ONE ×3 (12:16→17:24)
[2020-03-16] MEDS ORDERED: ONDANSETRON 4 MG/2 ML VIAL ONE (12:16)
[2020-03-16 13:53] LABS: HEMATOCRIT 26.1 % (32.4-45.2); HEMOGLOBIN 9.1 GM/dL (10.7-15.3); MCH 30.5 pg (25.7-33.7); MCHC 34.9 g/dl (32.0-36.0); MEAN CELL VOLUME 87.5 fl (80-96); MEAN PLT VOLUME 8.2 fl (7.5-11.1); PLATELET COUNT 227 K/MM3 (134-434); RBC 2.99 M/mm3 (3.60-5.2); RDW 21.3 % (11.6-15.6); WHITE BLOOD COUNT 7.7 K/mm3 (4.0-10.0)
[2020-03-16 13:58] LABS: POTASSIUM 4.3 mmol/L (3.5-5.1)
[2020-03-16 13:59] LABS: CALCIUM 8.6 mg/dL (8.5-10.1)
[2020-03-16 14:00] LABS: ALBUMIN 3.5 g/dl (3.4-5.0)
[2020-03-16 14:03] LABS: CREATININE 0.7 mg/dL (0.55-1.3)
[2020-03-16 14:04] LABS: BILIRUBIN,TOTAL 2.3 mg/dL (0.2-1); TOT PROT 8.4 g/dl (6.4-8.2)
[2020-03-16 16:17] LABS: OVALOCYTE 2+; PLATELET ESTIMATE NORMAL; SICKELED CELLS 2+; TARGET CELLS 2+
[2020-03-16 18:58] VITALS: BP 117/76; PULSE 86
== END 2020-03-16 18:58 | disposition home or self-care (01) ==
LOC: JER 10:33
PROC: 3E033GC Introduction of Other Therapeutic Substance into Peripheral Vein, Percutaneous Approach (ICD-10-PCS; principal; 2020-03-16)
PROC: 3E033GC Introduction of Other Therapeutic Substance into Peripheral Vein, Percutaneous Approach (ICD-10-PCS; 2020-03-16)
PROC: 3E033GC Introduction of Other Therapeutic Substance into Peripheral Vein, Percutaneous Approach (ICD-10-PCS; 2020-03-16)
PROC: 3E033GC Introduction of Other Therapeutic Substance into Peripheral Vein, Percutaneous Approach (ICD-10-PCS; 2020-03-16)
PROC: 3E033NZ Introduction of Analgesics, Hypnotics, Sedatives into Peripheral Vein, Percutaneous Approach (ICD-10-PCS; 2020-03-16)
PROC: 3E033NZ Introduction of Analgesics, Hypnotics, Sedatives into Peripheral Vein, Percutaneous Approach (ICD-10-PCS; 2020-03-16)
PROC: 3E033NZ Introduction of Analgesics, Hypnotics, Sedatives into Peripheral Vein, Percutaneous Approach (ICD-10-PCS; 2020-03-16)
PROC: 3E033GC Introduction of Other Therapeutic Substance into Peripheral Vein, Percutaneous Approach (ICD-10-PCS; 2020-03-16)
PROC: 3E0337Z Introduction of Electrolytic and Water Balance Substance into Peripheral Vein, Percutaneous Approach (ICD-10-PCS; 2020-03-16)
DX: D57.00 Hb-SS disease with crisis, unspecified (principal); M54.5 Low back pain; M25.561 Pain in right knee
CPT/HCPCS: 36415; 80053; 83615; 84703; 85025; 85045; 99284-25

== ENCOUNTER 2020-03-23 10:22 | Emergency (ER) | payer OTHER ==
[2020-03-23 10:31] VITALS: BMI 38.4
[2020-03-23] MEDS ORDERED: HYDROmorphone HCL CARPU-JECT 2 MG/1 ML DISP.SYRIN IVPUSH ONE ×5 (11:42→15:35)
[2020-03-23] MEDS ORDERED: ONDANSETRON 4 MG/2 ML VIAL IVPUSH ONE (11:42)
[2020-03-23] MEDS ORDERED: SODIUM CHLORIDE 1,000 ML IV STA (11:42)
[2020-03-23] MEDS ORDERED: HYDROmorphone HCl 2 MG/ML VIAL ONE ×4 (11:45→16:19)
[2020-03-23] MEDS ORDERED: ONDANSETRON 4 MG/2 ML VIAL ONE (11:46)
[2020-03-23 13:11] LABS: BASO % 0.8 % (0-2.0); EOS % 1.5 % (0-4.5); HEMATOCRIT 22.7 % (32.4-45.2); HEMOGLOBIN 7.9 GM/dL (10.7-15.3); LYMPH % 20.2 % (8-40); MCH 30.8 pg (25.7-33.7); MCHC 34.9 g/dl (32.0-36.0); MEAN CELL VOLUME 88.2 fl (80-96); MEAN PLT VOLUME 8.1 fl (7.5-11.1); MONO % 16.8 % (3.8-10.2); NEUT % 60.7 % (42.8-82.8); PLATELET COUNT 214 K/MM3 (134-434); RBC 2.57 M/mm3 (3.60-5.2); RDW 21.8 % (11.6-15.6); RETICULOCYTES 7.49 % (0.5-1.5); WHITE BLOOD COUNT 6.5 K/mm3 (4.0-10.0)
[2020-03-23 13:21] LABS: INR 1.11 (0.83-1.09); PROTHROMBIN TIME (PATIENT) 13.6 SEC (9.7-13.0)
[2020-03-23 13:24] LABS: POTASSIUM 4.1 mmol/L (3.5-5.1)
[2020-03-23 13:26] LABS: ALBUMIN 3.5 g/dl (3.4-5.0); BLOOD UREA NITROGEN 8.4 mg/dL (7-18); CALCIUM 8.6 mg/dL (8.5-10.1)
[2020-03-23 13:29] LABS: CREATININE 0.6 mg/dL (0.55-1.3)
[2020-03-23 13:31] LABS: BILIRUBIN,TOTAL 2.2 mg/dL (0.2-1); TOT PROT 8.7 g/dl (6.4-8.2)
[2020-03-23 13:37] LABS: ANISOCYTOSIS 1+; MACROCYTOSIS 1+; PLATELET ESTIMATE NORMAL; SICKELED CELLS 1+
[2020-03-23 18:51] VITALS: BP 150/85; PULSE 82; TEMP 97.4
== END 2020-03-23 19:00 | disposition home or self-care (01) ==
LOC: JER 10:22
PROC: 3E033NZ Introduction of Analgesics, Hypnotics, Sedatives into Peripheral Vein, Percutaneous Approach (ICD-10-PCS; principal; 2020-03-23)
PROC: 3E033GC Introduction of Other Therapeutic Substance into Peripheral Vein, Percutaneous Approach (ICD-10-PCS; 2020-03-23)
PROC: 3E0337Z Introduction of Electrolytic and Water Balance Substance into Peripheral Vein, Percutaneous Approach (ICD-10-PCS; 2020-03-23)
DX: D57.00 Hb-SS disease with crisis, unspecified (principal)
CPT/HCPCS: 36415; 73562-TC-RT-FY; 74177-TC; 80053; 82272; 83615; 84703; 85025; 85045; 85610; 99285-25; Q9967

== ENCOUNTER 2020-03-29 22:29 | Emergency (ER) | payer OTHER ==
[2020-03-29 22:37] VITALS: TEMP 98.6; BMI 38.2
[2020-03-29] MEDS ORDERED: HYDROmorphone HCL CARPU-JECT 1 MG/1 ML DISP.SYRIN IM STA (22:58)
[2020-03-29] MEDS ORDERED: HYDROmorphone HCl 2 MG/ML VIAL ONE (23:11)
[2020-03-30] MEDS ORDERED: HYDROmorphone HCL CARPU-JECT 1 MG/1 ML DISP.SYRIN IM ONE (00:01)
[2020-03-30] MEDS ORDERED: HYDROmorphone HCl 2 MG/ML VIAL ONE (00:11)
[2020-03-30] MEDS ORDERED: HYDROmorphone HCL/PF 1 MG/ML VIAL ONE (00:11)
[2020-03-30 00:52] VITALS: BP 116/77; PULSE 94
== END 2020-03-30 01:57 | disposition home or self-care (01) ==
LOC: FER 22:29
PROC: 3E033GC Introduction of Other Therapeutic Substance into Peripheral Vein, Percutaneous Approach (ICD-10-PCS; principal; 2020-03-29)
DX: D57.00 Hb-SS disease with crisis, unspecified (principal)
CPT/HCPCS: 99284-25

== ENCOUNTER 2020-04-05 20:13 | Emergency (ER) | payer OTHER ==
[2020-04-05 20:27] VITALS: TEMP 98.3; BMI 38.2
[2020-04-05] MEDS ORDERED: HYDROmorphone HCL CARPU-JECT 2 MG/1 ML DISP.SYRIN IVPUSH ONE ×3 (21:18→23:04)
[2020-04-05] MEDS ORDERED: ONDANSETRON 4 MG/2 ML VIAL IVPUSH ONE (21:18)
[2020-04-05] MEDS ORDERED: SODIUM CHLORIDE 0.9% 500 ML INFUS.BAG IV ONE (21:19)
[2020-04-05] MEDS ORDERED: HYDROmorphone HCl 2 MG/ML VIAL ONE ×2 (21:56→23:10)
[2020-04-05] MEDS ORDERED: ONDANSETRON 4 MG/2 ML VIAL ONE (21:56)
[2020-04-05 22:20] LABS: BASO % 1.8 % (0-2.0); EOS % 0.9 % (0-4.5); HEMATOCRIT 26.3 % (32.4-45.2); HEMOGLOBIN 9.2 GM/dL (10.7-15.3); LYMPH % 19.5 % (8-40); MCH 30.2 pg (25.7-33.7); MCHC 34.8 g/dl (32.0-36.0); MEAN CELL VOLUME 86.7 fl (80-96); MEAN PLT VOLUME 8.1 fl (7.5-11.1); MONO % 15.8 % (3.8-10.2); PLATELET COUNT 249 K/MM3 (134-434); RBC 3.03 M/mm3 (3.60-5.2); RDW 20.8 % (11.6-15.6); WHITE BLOOD COUNT 8.2 K/mm3 (4.0-10.0)
[2020-04-05 22:48] LABS: POTASSIUM 3.8 mmol/L (3.5-5.1)
[2020-04-05 22:50] LABS: ALBUMIN 3.6 g/dl (3.4-5.0); BLOOD UREA NITROGEN 10.4 mg/dL (7-18); CALCIUM 8.8 mg/dL (8.5-10.1)
[2020-04-05 22:54] LABS: CREATININE 0.8 mg/dL (0.55-1.3)
[2020-04-05 22:55] LABS: BILIRUBIN,TOTAL 2.1 mg/dL (0.2-1); TOT PROT 8.6 g/dl (6.4-8.2)
[2020-04-05 22:56] LABS: RETICULOCYTES 7.06 % (0.5-1.5)
[2020-04-06 01:12] VITALS: BP 115/72; PULSE 72
[2020-04-06 02:45] LABS: ANISOCYTOSIS 3+; HELMET CELLS 1+; MACROCYTOSIS 2+; PLATELET ESTIMATE NORMAL; SICKELED CELLS 2+; TARGET CELLS 2+
== END 2020-04-06 02:05 | disposition home or self-care (01) ==
LOC: JER 20:13
PROC: 3E033GC Introduction of Other Therapeutic Substance into Peripheral Vein, Percutaneous Approach (ICD-10-PCS; principal; 2020-04-05)
DX: D57.00 Hb-SS disease with crisis, unspecified (principal)
CPT/HCPCS: 36415; 71046-TC-FY; 80053; 83615; 85025; 85045; 99284-25

== ENCOUNTER 2020-04-13 19:40 | Emergency (ER) | payer OTHER ==
[2020-04-13 19:48] VITALS: BP 115/70; PULSE 95; TEMP 99.3; BMI 35.4
== END 2020-04-13 22:14 | disposition left against medical advice (07) ==
LOC: FER 19:40
DX: D57.00 Hb-SS disease with crisis, unspecified (principal)
CPT/HCPCS: 99284-25

== ENCOUNTER 2020-04-15 15:57 | Emergency (ER) | payer OTHER ==
[2020-04-15 16:32] VITALS: BP 107/45; PULSE 91; TEMP 97.2; BMI 38.6
[2020-04-15] MEDS ORDERED: HYDROmorphone HCL CARPU-JECT 2 MG/1 ML DISP.SYRIN IVPB ONE (17:22)
[2020-04-15] MEDS ORDERED: SODIUM CHLORIDE 0.9% 500 ML INFUS.BAG IV ONE ×2 (17:22→20:12)
[2020-04-15] MEDS ORDERED: ONDANSETRON 4 MG/2 ML VIAL IVPUSH ONE (17:22)
[2020-04-15] MEDS ORDERED: HYDROmorphone HCl 2 MG/ML VIAL ONE ×2 (18:00→20:39)
[2020-04-15] MEDS ORDERED: ONDANSETRON 4 MG/2 ML VIAL ONE (18:01)
[2020-04-15 18:58] LABS: POTASSIUM 3.8 mmol/L (3.5-5.1)
[2020-04-15 19:00] LABS: CALCIUM 8.2 mg/dL (8.5-10.1); HEMATOCRIT 24.9 % (32.4-45.2); HEMOGLOBIN 8.7 GM/dL (10.7-15.3); MCHC 34.9 g/dl (32.0-36.0); MEAN PLT VOLUME 8.2 fl (7.5-11.1); PLATELET COUNT 251 K/MM3 (134-434); RDW 22.2 % (11.6-15.6); RETICULOCYTES 8.27 % (0.5-1.5); WHITE BLOOD COUNT 7.6 K/mm3 (4.0-10.0)
[2020-04-15 19:01] LABS: ALBUMIN 3.4 g/dl (3.4-5.0); BLOOD UREA NITROGEN 7.5 mg/dL (7-18)
[2020-04-15 19:06] LABS: TOT PROT 8.2 g/dl (6.4-8.2)
[2020-04-15 19:13] LABS: ADD RBC MORPHOLOGY YES
[2020-04-15 19:58] LABS: ANISOCYTOSIS 3+; MACROCYTOSIS 1+; PLATELET ESTIMATE NORMAL; SICKELED CELLS 1+; TARGET CELLS 2+
[2020-04-15] MEDS ORDERED: HYDROmorphone HCL CARPU-JECT 2 MG/1 ML DISP.SYRIN IVPUSH ONE (20:11)
== END 2020-04-15 22:23 | disposition home or self-care (01) ==
LOC: JER 15:57
PROC: 3E033GC Introduction of Other Therapeutic Substance into Peripheral Vein, Percutaneous Approach (ICD-10-PCS; principal; 2020-04-15)
DX: D57.00 Hb-SS disease with crisis, unspecified (principal)
CPT/HCPCS: 36415; 80053; 85025; 85045; 99284-25

== ENCOUNTER 2020-05-19 21:39 | Emergency (ER) | payer OTHER ==
[2020-05-19 22:05] VITALS: BMI 38.6
[2020-05-19] MEDS ORDERED: LACTATED RINGERS SOLUTION 1000 ML INFUS.BAG IV ONE (23:32)
[2020-05-19] MEDS ORDERED: HYDROmorphone HCL CARPU-JECT 2 MG/1 ML DISP.SYRIN IVPUSH ONE (23:45)
[2020-05-20] MEDS ORDERED: HYDROmorphone HCl 2 MG/ML VIAL ONE ×3 (00:11→04:24)
[2020-05-20] MEDS ORDERED: ONDANSETRON 4 MG/2 ML VIAL IVPUSH ONE (00:23)
[2020-05-20] MEDS ORDERED: ONDANSETRON 4 MG/2 ML VIAL ONE (00:24)
[2020-05-20 00:51] LABS: CHLORIDE 105 mmol/L (98-107); HEMATOCRIT 25.3 % (32.4-45.2); HEMOGLOBIN 8.7 GM/dL (10.7-15.3); MCHC 34.4 g/dl (32.0-36.0); MEAN CELL VOLUME 87.3 fl (80-96); MEAN PLT VOLUME 8.4 fl (7.5-11.1); PLATELET COUNT 236 K/MM3 (134-434); POTASSIUM 4.2 mmol/L (3.5-5.1); RDW 22.8 % (11.6-15.6); SODIUM 139 mmol/L (136-145); WHITE BLOOD COUNT 8.2 K/mm3 (4.0-10.0)
[2020-05-20 00:52] LABS: INR 1.52 (0.83-1.09)
[2020-05-20 00:53] LABS: ALBUMIN 3.5 g/dl (3.4-5.0); ANION GAP 5 MMOL/L (8-16); BLOOD UREA NITROGEN 8.9 mg/dL (7-18); CALCIUM 8.5 mg/dL (8.5-10.1); CO2 29 mmol/L (21-32)
[2020-05-20 00:54] LABS: GLUCOSE,RANDOM 97 mg/dL (74-106)
[2020-05-20 00:56] LABS: CREATININE 0.6 mg/dL (0.55-1.3); SGOT/AST 64 U/L (15-37); SGPT/ALT 33 U/L (13-61)
[2020-05-20 00:57] LABS: TOT PROT 8.3 g/dl (6.4-8.2)
[2020-05-20 00:59] LABS: ALK PHOS 198 U/L (45-117)
[2020-05-20 01:14] LABS: ACTIVATED PTT > 400.0 SECONDS (25.2-36.5)
[2020-05-20] MEDS ORDERED: SODIUM CHLORIDE 0.9% 500 ML INFUS.BAG IV ONE (02:26)
[2020-05-20] MEDS ORDERED: HYDROmorphone HCL CARPU-JECT 2 MG/1 ML DISP.SYRIN IVPUSH ONE ×2 (02:26→04:01)
[2020-05-20 03:51] LABS: ANISOCYTOSIS 2+; MACROCYTOSIS 2+; PLATELET ESTIMATE NORMAL; SICKELED CELLS 1+; TARGET CELLS 1+
[2020-05-20 06:33] VITALS: BP 100/66; PULSE 71; TEMP 97.9
== END 2020-05-20 06:36 | disposition home or self-care (01) ==
LOC: JER 21:39
PROC: 3E033GC Introduction of Other Therapeutic Substance into Peripheral Vein, Percutaneous Approach (ICD-10-PCS; principal; 2020-05-19)
DX: D57.00 Hb-SS disease with crisis, unspecified (principal)
CPT/HCPCS: 36415; 71045-TC-FY; 80053; 84484; 85025; 85045; 85610; 85730; 87804; 93005; 93010; 99285-25; C9803; U0003; U0005

== ENCOUNTER 2020-06-06 20:37 | Emergency (ER) | payer OTHER ==
[2020-06-06 20:44] VITALS: PULSE 88; TEMP 98.2; BMI 38.0
[2020-06-06] MEDS ORDERED: LACTATED RINGERS SOLUTION 1000 ML INFUS.BAG IV ONE (22:15)
[2020-06-06] MEDS ORDERED: HYDROmorphone HCL CARPU-JECT 2 MG/1 ML DISP.SYRIN IVPUSH ONE (22:23)
[2020-06-06] MEDS ORDERED: ONDANSETRON 4 MG/2 ML VIAL IVPUSH ONE (22:24)
[2020-06-06] MEDS ORDERED: HYDROmorphone HCl 2 MG/ML VIAL ONE (22:50)
[2020-06-06] MEDS ORDERED: ONDANSETRON 4 MG/2 ML VIAL ONE (22:50)
[2020-06-06 23:15] LABS: BASO % 1.7 % (0-2.0); EOS % 1.2 % (0-4.5); HEMATOCRIT 23.5 % (32.4-45.2); LYMPH % 20.7 % (8-40); MCH 30.4 pg (25.7-33.7); MCHC 34.2 g/dl (32.0-36.0); MEAN PLT VOLUME 8.1 fl (7.5-11.1); MONO % 15.7 % (3.8-10.2); NEUT % 60.7 % (42.8-82.8); PLATELET COUNT 276 K/MM3 (134-434); RBC 2.64 M/mm3 (3.60-5.2); RETICULOCYTES 6.05 % (0.5-1.5); WHITE BLOOD COUNT 9.6 K/mm3 (4.0-10.0)
[2020-06-06 23:53] LABS: ANISOCYTOSIS 2+; MACROCYTOSIS 1+; PLATELET ESTIMATE NORMAL; SICKELED CELLS 2+; TARGET CELLS 2+
[2020-06-07] MEDS ORDERED: HYDROmorphone HCL CARPU-JECT 2 MG/1 ML DISP.SYRIN IVPUSH ONE (00:20)
[2020-06-07 00:28] LABS: BLOOD UREA NITROGEN 7.4 mg/dL (7-18); CALCIUM 8.1 mg/dL (8.5-10.1); CREATININE 0.7 mg/dL (0.55-1.3); TOT PROT 7.8 g/dl (6.4-8.2)
[2020-06-07] MEDS ORDERED: diphenhydrAMINE HCL 25 MG CAPSULE (FP) PO ONE ×2 (00:47→00:51)
[2020-06-07] MEDS ORDERED: HYDROmorphone HCl 2 MG/ML VIAL ONE (00:51)
[2020-06-07 01:49] VITALS: BP 105/72
== END 2020-06-07 01:52 | disposition home or self-care (01) ==
LOC: JER 20:37 → JERFT 20:37 → JER 06-07 01:52
PROC: 3E033GC Introduction of Other Therapeutic Substance into Peripheral Vein, Percutaneous Approach (ICD-10-PCS; principal; 2020-06-06)
PROC: 3E033GC Introduction of Other Therapeutic Substance into Peripheral Vein, Percutaneous Approach (ICD-10-PCS; 2020-06-06)
PROC: 3E033GC Introduction of Other Therapeutic Substance into Peripheral Vein, Percutaneous Approach (ICD-10-PCS; 2020-06-06)
PROC: 3E033GC Introduction of Other Therapeutic Substance into Peripheral Vein, Percutaneous Approach (ICD-10-PCS; 2020-06-06)
PROC: 3E033GC Introduction of Other Therapeutic Substance into Peripheral Vein, Percutaneous Approach (ICD-10-PCS; 2020-06-06)
DX: D57.219 Sickle-cell/Hb-C disease with crisis, unspecified (principal); M54.5 Low back pain
CPT/HCPCS: 36415; 80053; 85025; 85045; 99285-25

== ENCOUNTER 2020-06-29 14:13 | Emergency (ER) | payer OTHER ==
[2020-06-29 14:58] VITALS: BP 112/70; PULSE 95; TEMP 98; BMI 38.6
[2020-06-29] MEDS ORDERED: SODIUM CHLORIDE 0.9% 500 ML INFUS.BAG IV ONE (15:09)
[2020-06-29] MEDS ORDERED: ONDANSETRON 4 MG/2 ML VIAL IVPUSH ONE (15:22)
[2020-06-29] MEDS ORDERED: HYDROmorphone HCL CARPU-JECT 2 MG/1 ML DISP.SYRIN IVPUSH ONE ×2 (15:22→17:46)
[2020-06-29] MEDS ORDERED: HYDROmorphone HCl 2 MG/ML VIAL ONE ×2 (15:50→17:58)
[2020-06-29] MEDS ORDERED: ONDANSETRON 4 MG/2 ML VIAL ONE (15:52)
[2020-06-29 16:53] LABS: HEMATOCRIT 26.8 % (32.4-45.2); HEMOGLOBIN 9.2 GM/dL (10.7-15.3); MCH 30.1 pg (25.7-33.7); MCHC 34.3 g/dl (32.0-36.0); MEAN CELL VOLUME 87.8 fl (80-96); MEAN PLT VOLUME 8.5 fl (7.5-11.1); PLATELET COUNT 250 K/MM3 (134-434); RBC 3.05 M/mm3 (3.60-5.2); RDW 21.9 % (11.6-15.6); RETICULOCYTES 7.77 % (0.5-1.5); WHITE BLOOD COUNT 7.5 K/mm3 (4.0-10.0)
[2020-06-29 17:15] LABS: CALCIUM 7.4 mg/dL (8.5-10.1)
[2020-06-29 17:16] LABS: ALBUMIN 3.1 g/dl (3.4-5.0); BLOOD UREA NITROGEN 9.7 mg/dL (7-18)
[2020-06-29 17:19] LABS: CREATININE 0.6 mg/dL (0.55-1.3)
[2020-06-29 17:21] LABS: BILIRUBIN,TOTAL 1.7 mg/dL (0.2-1); TOT PROT 7.7 g/dl (6.4-8.2)
[2020-06-29 18:34] LABS: ANISOCYTOSIS 2+; MACROCYTOSIS 0; PLATELET ESTIMATE NORMAL; SICKELED CELLS 1+; TARGET CELLS 1+; TEAR DROP CELLS 1+
== END 2020-06-29 19:52 | disposition home or self-care (01) ==
LOC: JER 14:13
PROC: 3E033GC Introduction of Other Therapeutic Substance into Peripheral Vein, Percutaneous Approach (ICD-10-PCS; principal; 2020-06-29)
PROC: 3E033GC Introduction of Other Therapeutic Substance into Peripheral Vein, Percutaneous Approach (ICD-10-PCS; 2020-06-29)
PROC: 3E033GC Introduction of Other Therapeutic Substance into Peripheral Vein, Percutaneous Approach (ICD-10-PCS; 2020-06-29)
PROC: 3E033NZ Introduction of Analgesics, Hypnotics, Sedatives into Peripheral Vein, Percutaneous Approach (ICD-10-PCS; 2020-06-29)
PROC: 3E033NZ Introduction of Analgesics, Hypnotics, Sedatives into Peripheral Vein, Percutaneous Approach (ICD-10-PCS; 2020-06-29)
PROC: 3E033GC Introduction of Other Therapeutic Substance into Peripheral Vein, Percutaneous Approach (ICD-10-PCS; 2020-06-29)
DX: D57.219 Sickle-cell/Hb-C disease with crisis, unspecified (principal)
CPT/HCPCS: 36415; 80053; 84703; 85025; 85045; 99284-25

== ENCOUNTER 2020-08-11 10:14 | Emergency (ER) | payer OTHER ==
[2020-08-11 10:28] VITALS: BMI 38.6
[2020-08-11] MEDS ORDERED: HYDROmorphone HCL CARPU-JECT 2 MG/1 ML DISP.SYRIN IVPUSH ONE ×3 (10:57→15:50)
[2020-08-11] MEDS ORDERED: SODIUM CHLORIDE 1,000 ML IV ONE ×2 (10:57→14:25)
[2020-08-11] MEDS ORDERED: ONDANSETRON 4 MG/2 ML VIAL IVPB ONE (10:57)
[2020-08-11] MEDS ORDERED: HYDROmorphone HCl 2 MG/ML VIAL ONE ×3 (11:13→15:51)
[2020-08-11] MEDS ORDERED: ONDANSETRON 4 MG/2 ML VIAL ONE (11:14)
[2020-08-11 11:27] LABS: HEMATOCRIT 26.9 % (32.4-45.2); MCH 28.9 pg (25.7-33.7); MCHC 33.6 g/dl (32.0-36.0); PLATELET COUNT 279 10^3/uL (134-434); RBC 3.12 M/mm3 (3.60-5.2); RDW 20.9 % (11.6-15.6); RETICULOCYTES 6.17 % (0.5-1.5); WHITE BLOOD COUNT 7.9 K/mm3 (4.0-10.0)
[2020-08-11 11:48] LABS: CALCIUM 8.3 mg/dL (8.5-10.1)
[2020-08-11 11:49] LABS: ALBUMIN 3.4 g/dl (3.4-5.0); BLOOD UREA NITROGEN 11.2 mg/dL (7-18)
[2020-08-11 11:52] LABS: CREATININE 0.6 mg/dL (0.55-1.3)
[2020-08-11 11:53] LABS: BILIRUBIN,TOTAL 2.3 mg/dL (0.2-1)
[2020-08-11 11:54] LABS: TOT PROT 8.4 g/dl (6.4-8.2)
[2020-08-11 12:45] LABS: URINE APPEARANCE Clear; URINE BILIRUBIN Negative (NEGATIVE); URINE COLOR Yellow; URINE GLUCOSE (UA) Negative (NEGATIVE); URINE KETONE Negative (NEGATIVE); URINE LEUK ESTERASE Negative (NEGATIVE); URINE NITRITE Negative (NEGATIVE); URINE PROTEIN Negative (NEGATIVE); URINE UROBILINOGEN >=8.0 E.U./dl mg/dL (0.2-1.0)
[2020-08-11 12:53] LABS: ANISOCYTOSIS 1+; MACROCYTOSIS 1+; PLATELET ESTIMATE NORMAL; SICKELED CELLS 2+; TARGET CELLS 2+
[2020-08-11 14:44] VITALS: BP 109/54; PULSE 67; TEMP 98.5
== END 2020-08-11 17:00 | disposition home or self-care (01) ==
LOC: JER 10:14
PROC: 3E033NZ Introduction of Analgesics, Hypnotics, Sedatives into Peripheral Vein, Percutaneous Approach (ICD-10-PCS; principal; 2020-08-11)
PROC: 3E033GC Introduction of Other Therapeutic Substance into Peripheral Vein, Percutaneous Approach (ICD-10-PCS; 2020-08-11)
PROC: 3E0337Z Introduction of Electrolytic and Water Balance Substance into Peripheral Vein, Percutaneous Approach (ICD-10-PCS; 2020-08-11)
DX: D57.00 Hb-SS disease with crisis, unspecified (principal)
CPT/HCPCS: 36415; 80053; 81003; 84703; 85025; 85045; 86850; 86900; 86901; 93005; 93010; 99285-25

== ENCOUNTER 2020-08-31 10:41 | Observation (INO) | payer OTHER ==
[2020-08-31] MEDS ORDERED: diphenhydrAMINE HCL 25 MG CAPSULE (FP) PO ONE ×2 (11:38→12:36)
[2020-08-31] MEDS ORDERED: SODIUM CHLORIDE 0.9% 500 ML INFUS.BAG IV ONE (11:38)
[2020-08-31] MEDS ORDERED: HYDROmorphone HCL CARPU-JECT 2 MG/1 ML DISP.SYRIN IVPUSH ONE ×2 (11:38→13:55)
[2020-08-31] MEDS ORDERED: HYDROmorphone HCl 2 MG/ML VIAL ONE ×3 (12:24→17:59)
[2020-08-31 13:32] LABS: HEMATOCRIT 26.7 % (32.4-45.2); HEMOGLOBIN 9.2 GM/dL (10.7-15.3); MCH 29.4 pg (25.7-33.7); MCHC 34.4 g/dl (32.0-36.0); MEAN CELL VOLUME 85.5 fl (80-96); MEAN PLT VOLUME 8.3 fl (7.5-11.1); PLATELET COUNT 270 10^3/uL (134-434); RBC 3.12 M/mm3 (3.60-5.2); RDW 22.6 % (11.6-15.6); WHITE BLOOD COUNT 6.9 K/mm3 (4.0-10.0)
[2020-08-31 13:50] LABS: ALBUMIN 3.4 g/dl (3.4-5.0); BLOOD UREA NITROGEN 6.7 mg/dL (7-18); CALCIUM 8.3 mg/dL (8.5-10.1)
[2020-08-31 13:54] LABS: CREATININE 0.6 mg/dL (0.55-1.3); TOT PROT 8.4 g/dl (6.4-8.2)
[2020-08-31] MEDS ORDERED: CYCLOBENZAPRINE HCL 10 MG TABLET (FP) PO ONE (13:56)
[2020-08-31] MEDS ORDERED: HYDROmorphone HCL CARPU-JECT 2 MG/1 ML DISP.SYRIN IVPB ONE ×2 (14:35→17:51)
[2020-08-31 14:37] LABS: ANISOCYTOSIS 1+; MACROCYTOSIS 1+; PLATELET ESTIMATE NORMAL; SICKELED CELLS 1+; TARGET CELLS 2+
[2020-08-31] MEDS ORDERED: CYCLOBENZAPRINE HCL 10 MG TABLET (FP) ONE (14:56)
[2020-08-31] MEDS ORDERED: FOLIC ACID 1 MG TABLET (FP) ONE (20:24)
[2020-08-31] MEDS: HYDROXYUREA 500 MG CAPSULE PO SCH (20:57)
[2020-08-31] MEDS: LACTATED RINGERS SOLUTION 1,000 ML/1,000 ML INFUS.BAG IV SCH (20:57)
[2020-08-31] MEDS: FOLIC ACID 1 MG TABLET (FP) PO SCH (20:57)
[2020-08-31 22:12] VITALS: BMI 40.5
[2020-09-01] MEDS: HYDROmorphone HCl 2 MG/ML VIAL IVPB PRN ×2 (00:12→15:10)
[2020-09-01] MEDS: APIXABAN 5 MG TABLET PO SCH ×2 (00:13→13:02)
[2020-09-01] MEDS ORDERED: HYDROmorphone HCl 2 MG/ML VIAL IVPUSH ONE (04:10)
[2020-09-01] MEDS: FOLIC ACID 1 MG TABLET (FP) PO SCH (13:02)
[2020-09-01] MEDS: HYDROXYUREA 500 MG CAPSULE PO SCH (13:03)
[2020-09-01] MEDS: LACTATED RINGERS SOLUTION 1,000 ML/1,000 ML INFUS.BAG IV SCH (15:16)
[2020-09-01 16:22] VITALS: BP 111/75; PULSE 102; TEMP 98
[2020-09-01] MEDS ORDERED: VANCOMYCIN/HEPARIN - ANTIBIOTIC LOCK 3 ML (RESTRICTED TO ID) IVPUSH ONE (20:30)
== END 2020-09-01 21:05 | disposition left against medical advice (07) ==
LOC: JER 10:41 → JERBED 18:43 → J8W 21:42
PROVIDERS: ATTEND Internal Medicine
PROC: 3E033GC Introduction of Other Therapeutic Substance into Peripheral Vein, Percutaneous Approach (ICD-10-PCS; principal; 2020-08-31)
PROC: 3E033NZ Introduction of Analgesics, Hypnotics, Sedatives into Peripheral Vein, Percutaneous Approach (ICD-10-PCS; 2020-08-31)
PROC: 3E0337Z Introduction of Electrolytic and Water Balance Substance into Peripheral Vein, Percutaneous Approach (ICD-10-PCS; 2020-08-31)
DX: D57.00 Hb-SS disease with crisis, unspecified (principal); K76.6 Portal hypertension; I81 Portal vein thrombosis; I85.10 Secondary esophageal varices without bleeding; D57.1 Sickle-cell disease without crisis; F39 Unspecified mood [affective] disorder; Z86.718 Personal history of other venous thrombosis and embolism; Z79.01 Long term (current) use of anticoagulants; M54.9 Dorsalgia, unspecified; F11.20 Opioid dependence, uncomplicated; R16.0 Hepatomegaly, not elsewhere classified; E66.01 Morbid (severe) obesity due to excess calories; Z68.41 Body mass index [BMI] 40.0-44.9, adult; Z86.16 Personal history of COVID-19
CPT/HCPCS: 36415; 80053; 85025; 93005; 93010; 96374; 96375; 96376; 99285-25; C9803; G0378; J8999; U0003; U0005

== ENCOUNTER 2020-09-24 08:29 | Emergency (ER) | payer OTHER ==
[2020-09-24 08:37] VITALS: BMI 39.0
[2020-09-24] MEDS ORDERED: HYDROmorphone HCL CARPU-JECT 2 MG/1 ML DISP.SYRIN IVPB ONE ×3 (09:29→14:27)
[2020-09-24] MEDS ORDERED: SODIUM CHLORIDE 0.9% 500 ML INFUS.BAG IV ONE ×2 (09:29→11:03)
[2020-09-24] MEDS ORDERED: HYDROmorphone HCl 2 MG/ML VIAL ONE ×3 (09:40→15:02)
[2020-09-24 10:23] LABS: HEMATOCRIT 25.6 % (32.4-45.2); HEMOGLOBIN 8.9 GM/dL (10.7-15.3); MEAN CELL VOLUME 85.7 fl (80-96); MEAN PLT VOLUME 7.9 fl (7.5-11.1); PLATELET COUNT 216 10^3/uL (134-434); RBC 2.98 M/mm3 (3.60-5.2); WHITE BLOOD COUNT 6.7 K/mm3 (4.0-10.0)
[2020-09-24 10:43] LABS: CALCIUM 8.3 mg/dL (8.5-10.1)
[2020-09-24 10:44] LABS: ALBUMIN 3.5 g/dl (3.4-5.0)
[2020-09-24 10:47] LABS: CREATININE 0.6 mg/dL (0.55-1.3)
[2020-09-24 10:48] LABS: BILIRUBIN,TOTAL 2.4 mg/dL (0.2-1); TOT PROT 8.5 g/dl (6.4-8.2)
[2020-09-24 11:05] LABS: ANISOCYTOSIS 1+; MACROCYTOSIS 1+; PLATELET ESTIMATE NORMAL; SICKELED CELLS 2+; TARGET CELLS 1+
[2020-09-24 11:28] VITALS: TEMP 98.5
[2020-09-24] MEDS ORDERED: ONDANSETRON 4 MG/2 ML VIAL IVPUSH ONE (12:52)
[2020-09-24] MEDS ORDERED: DEXTROSE 5%-0.45% SALINE 1,000 ML IV SCH (13:00)
[2020-09-24] MEDS ORDERED: ONDANSETRON 4 MG/2 ML VIAL ONE (13:03)
[2020-09-24 14:21] LABS: URINE APPEARANCE CLEAR; URINE BILIRUBIN NEGATIVE (NEGATIVE); URINE COLOR YELLOW; URINE GLUCOSE (UA) NEGATIVE (NEGATIVE); URINE KETONE NEGATIVE (NEGATIVE); URINE LEUK ESTERASE NEGATIVE (NEGATIVE); URINE NITRITE NEGATIVE (NEGATIVE); URINE PROTEIN NEGATIVE (NEGATIVE)
[2020-09-24 17:44] VITALS: BP 133/82; PULSE 92
== END 2020-09-24 16:14 | disposition home or self-care (01) ==
LOC: JER 08:29
DX: D57.00 Hb-SS disease with crisis, unspecified (principal)
CPT/HCPCS: 36415; 71046-TC-FY; 80053; 81003; 85025; 85045; 87086; 93005; 93010; 99284-25

== ENCOUNTER 2020-10-06 12:30 | Emergency (ER) | payer OTHER ==
[2020-10-06 12:58] VITALS: BP 118/69; PULSE 90; TEMP 98.4; BMI 38.2
[2020-10-06] MEDS ORDERED: HYDROmorphone HCL CARPU-JECT 2 MG/1 ML DISP.SYRIN IVPUSH ONE ×3 (15:16→19:08)
[2020-10-06] MEDS ORDERED: ONDANSETRON 4 MG/2 ML VIAL IVPUSH ONE (15:17)
[2020-10-06] MEDS ORDERED: SODIUM CHLORIDE 0.9% 500 ML INFUS.BAG IV ONE ×2 (15:20→18:32)
[2020-10-06] MEDS ORDERED: HYDROmorphone HCl 2 MG/ML VIAL ONE ×5 (15:52→19:44)
[2020-10-06] MEDS ORDERED: ONDANSETRON 4 MG/2 ML VIAL ONE (15:53)
[2020-10-06 16:44] LABS: BASO % 0.8 % (0-2.0); EOS % 3.1 % (0-4.5); LYMPH % 31.1 % (8-40); MCH 30.1 pg (25.7-33.7); MCHC 32.5 g/dl (32.0-36.0); MEAN CELL VOLUME 92.6 fl (80-96); MEAN PLT VOLUME 9.2 fl (7.5-11.1); MONO % 8.7 % (3.8-10.2); NEUT % 56.3 % (42.8-82.8); PLATELET COUNT 259 10^3/uL (134-434); RBC 3.67 M/mm3 (3.60-5.2); RDW 15.1 % (11.6-15.6); RETICULOCYTES 1.29 % (0.5-1.5); WHITE BLOOD COUNT 5.7 K/mm3 (4.0-10.0)
[2020-10-06 17:00] LABS: ALBUMIN 3.7 g/dl (3.4-5.0); BLOOD UREA NITROGEN 13.2 mg/dL (7-18)
[2020-10-06 17:03] LABS: CREATININE 0.8 mg/dL (0.55-1.3)
[2020-10-06 17:04] LABS: TOT PROT 8.6 g/dl (6.4-8.2)
[2020-10-06 17:08] LABS: N-TERMINAL BNP 183.4 pg/ml (5-125)
[2020-10-06 17:16] LABS: BILIRUBIN,TOTAL 0.4 mg/dL (0.2-1); CALCIUM 9.6 mg/dL (8.5-10.1)
== END 2020-10-06 22:49 | disposition home or self-care (01) ==
LOC: JER 12:30
PROC: 3E033GC Introduction of Other Therapeutic Substance into Peripheral Vein, Percutaneous Approach (ICD-10-PCS; principal; 2020-10-06)
PROC: 3E033GC Introduction of Other Therapeutic Substance into Peripheral Vein, Percutaneous Approach (ICD-10-PCS; 2020-10-06)
PROC: 3E033GC Introduction of Other Therapeutic Substance into Peripheral Vein, Percutaneous Approach (ICD-10-PCS; 2020-10-06)
PROC: 3E033GC Introduction of Other Therapeutic Substance into Peripheral Vein, Percutaneous Approach (ICD-10-PCS; 2020-10-06)
PROC: 3E033NZ Introduction of Analgesics, Hypnotics, Sedatives into Peripheral Vein, Percutaneous Approach (ICD-10-PCS; 2020-10-06)
PROC: 3E033NZ Introduction of Analgesics, Hypnotics, Sedatives into Peripheral Vein, Percutaneous Approach (ICD-10-PCS; 2020-10-06)
PROC: 3E033NZ Introduction of Analgesics, Hypnotics, Sedatives into Peripheral Vein, Percutaneous Approach (ICD-10-PCS; 2020-10-06)
DX: D57.00 Hb-SS disease with crisis, unspecified (principal)
CPT/HCPCS: 36415; 71045-TC-FY; 80053; 83880; 85025; 85045; 93970-TC; 99285-25; C9803; U0003; U0005

== ENCOUNTER 2020-10-26 17:38 | Emergency (ER) | payer OTHER ==
[2020-10-26 17:57] VITALS: TEMP 98.2; BMI 38.6
[2020-10-26] MEDS ORDERED: HYDROmorphone HCL CARPU-JECT 2 MG/1 ML DISP.SYRIN IVPB ONE (18:54)
[2020-10-26] MEDS ORDERED: ONDANSETRON 4 MG/2 ML VIAL IVPUSH ONE (19:00)
[2020-10-26] MEDS ORDERED: SODIUM CHLORIDE 1,000 ML IV STA (19:04)
[2020-10-26] MEDS ORDERED: HYDROmorphone HCl 2 MG/ML VIAL ONE ×2 (20:40→22:56)
[2020-10-26] MEDS ORDERED: ONDANSETRON 4 MG/2 ML VIAL ONE (20:45)
[2020-10-26 21:04] LABS: ALBUMIN 3.5 g/dl (3.4-5.0); BLOOD UREA NITROGEN 10.5 mg/dL (7-18)
[2020-10-26 21:07] LABS: CREATININE 0.9 mg/dL (0.55-1.3)
[2020-10-26 21:09] LABS: HCG,QUALITATIVE URINE Negative
[2020-10-26 21:10] LABS: BILIRUBIN,TOTAL 2.6 mg/dL (0.2-1); EPI CELLS >36 /uL (0-25.1); HYALINE CASTS 0 /uL (0-3.1); TOT PROT 9.1 g/dl (6.4-8.2); URINE APPEARANCE CLOUDY; URINE BACTERIA 935 /uL (0-1359); URINE BILIRUBIN NEGATIVE (NEGATIVE); URINE COLOR YELLOW; URINE GLUCOSE (UA) NEGATIVE (NEGATIVE); URINE KETONE NEGATIVE (NEGATIVE); URINE LEUK ESTERASE 1+ (NEGATIVE); URINE NITRITE NEGATIVE (NEGATIVE); URINE PROTEIN NEGATIVE (NEGATIVE); URINE RBC 32 /uL (0-23.9); URINE WBC 36 /uL (0-25.8)
[2020-10-26] MEDS ORDERED: HYDROmorphone HCL CARPU-JECT 2 MG/1 ML DISP.SYRIN IVPUSH ONE (22:30)
[2020-10-27 00:28] VITALS: BP 112/60; PULSE 72
== END 2020-10-27 00:29 | disposition home or self-care (01) ==
LOC: JER 17:38
PROC: 3E033GC Introduction of Other Therapeutic Substance into Peripheral Vein, Percutaneous Approach (ICD-10-PCS; principal; 2020-10-26)
PROC: 3E033GC Introduction of Other Therapeutic Substance into Peripheral Vein, Percutaneous Approach (ICD-10-PCS; 2020-10-26)
PROC: 3E033GC Introduction of Other Therapeutic Substance into Peripheral Vein, Percutaneous Approach (ICD-10-PCS; 2020-10-26)
PROC: 3E033NZ Introduction of Analgesics, Hypnotics, Sedatives into Peripheral Vein, Percutaneous Approach (ICD-10-PCS; 2020-10-26)
PROC: 3E033NZ Introduction of Analgesics, Hypnotics, Sedatives into Peripheral Vein, Percutaneous Approach (ICD-10-PCS; 2020-10-26)
PROC: 3E033GC Introduction of Other Therapeutic Substance into Peripheral Vein, Percutaneous Approach (ICD-10-PCS; 2020-10-26)
PROC: 3E0337Z Introduction of Electrolytic and Water Balance Substance into Peripheral Vein, Percutaneous Approach (ICD-10-PCS; 2020-10-26)
DX: D57.219 Sickle-cell/Hb-C disease with crisis, unspecified (principal)
CPT/HCPCS: 36415; 80053; 81003; 84703; 99285-25

== ENCOUNTER 2020-11-11 11:47 | Emergency (ER) | payer OTHER ==
[2020-11-11 11:57] VITALS: BP 104/58; PULSE 75; TEMP 97.9; BMI 38.9
[2020-11-11] MEDS ORDERED: ONDANSETRON 4 MG/2 ML VIAL IVPUSH ONE (14:52)
[2020-11-11] MEDS ORDERED: HYDROmorphone HCL CARPU-JECT 2 MG/1 ML DISP.SYRIN IVPUSH ONE ×3 (14:52→17:35)
[2020-11-11] MEDS ORDERED: SODIUM CHLORIDE 0.9% 1000 ML INFUS.BAG IV ONE (14:52)
[2020-11-11] MEDS ORDERED: HYDROmorphone HCl 2 MG/ML VIAL ONE ×3 (14:54→17:40)
[2020-11-11] MEDS ORDERED: ONDANSETRON 4 MG/2 ML VIAL ONE (14:54)
[2020-11-11 15:31] LABS: BASO % 0.9 % (0-2.0); EOS % 1.8 % (0-4.5); HEMATOCRIT 26.6 % (32.4-45.2); HEMOGLOBIN 9.2 GM/dL (10.7-15.3); LYMPH % 18.7 % (8-40); MCH 29.4 pg (25.7-33.7); MCHC 34.5 g/dl (32.0-36.0); MEAN CELL VOLUME 85.3 fl (80-96); MEAN PLT VOLUME 8.2 fl (7.5-11.1); MONO % 16.8 % (3.8-10.2); NEUT % 61.8 % (42.8-82.8); PLATELET COUNT 246 10^3/uL (134-434); RBC 3.12 M/mm3 (3.60-5.2); RDW 21.4 % (11.6-15.6); RETICULOCYTES 6.34 % (0.5-1.5); WHITE BLOOD COUNT 7.5 K/mm3 (4.0-10.0)
[2020-11-11 15:48] LABS: CHLORIDE 108 mmol/L (98-107); SODIUM 139 mmol/L (136-145)
[2020-11-11 15:51] LABS: CALCIUM 8.6 mg/dL (8.5-10.1)
[2020-11-11 15:52] LABS: ALBUMIN 3.4 g/dl (3.4-5.0); ANION GAP 6 MMOL/L (8-16); BLOOD UREA NITROGEN 9.2 mg/dL (7-18); CO2 25 mmol/L (21-32); GLUCOSE,RANDOM 89 mg/dL (74-106)
[2020-11-11 15:55] LABS: ANISOCYTOSIS 2+; CREATININE 0.7 mg/dL (0.55-1.3); MACROCYTOSIS 2+; OVALOCYTE 2+; PLATELET ESTIMATE NORMAL; SGOT/AST 67 U/L (15-37); SGPT/ALT 32 U/L (13-61); TARGET CELLS 2+; TEAR DROP CELLS 1+
[2020-11-11 15:57] LABS: BILIRUBIN,TOTAL 2.5 mg/dL (0.2-1); TOT PROT 8.8 g/dl (6.4-8.2)
[2020-11-11 15:58] LABS: ALK PHOS 236 U/L (45-117)
== END 2020-11-11 18:20 | disposition home or self-care (01) ==
LOC: JER 11:47
DX: D57.00 Hb-SS disease with crisis, unspecified (principal)
CPT/HCPCS: 36415; 71046-TC-FY; 80053; 84702; 85025; 85045; 99284-25

== ENCOUNTER 2020-12-06 10:37 | Emergency (ER) | payer OTHER ==
[2020-12-06 11:09] VITALS: BMI 38.9
[2020-12-06] MEDS ORDERED: ONDANSETRON 4 MG/2 ML VIAL IVPUSH ONE (12:06)
[2020-12-06] MEDS ORDERED: SODIUM CHLORIDE 1,000 ML IV STA (12:06)
[2020-12-06] MEDS ORDERED: HYDROmorphone HCL CARPU-JECT 2 MG/1 ML DISP.SYRIN IVPUSH ONE ×4 (12:07→15:27)
[2020-12-06] MEDS ORDERED: ONDANSETRON 4 MG/2 ML VIAL ONE (12:14)
[2020-12-06] MEDS ORDERED: HYDROmorphone HCl 2 MG/ML VIAL ONE ×4 (12:14→16:12)
[2020-12-06 12:38] LABS: SODIUM 140 mmol/L (136-145)
[2020-12-06 12:40] LABS: CALCIUM 8.2 mg/dL (8.5-10.1); GLUCOSE,RANDOM 101 mg/dL (74-106)
[2020-12-06 12:41] LABS: ALBUMIN 3.2 g/dl (3.4-5.0); CO2 25 mmol/L (21-32)
[2020-12-06 12:43] LABS: SGOT/AST 63 U/L (15-37); SGPT/ALT 29 U/L (13-61)
[2020-12-06 12:45] LABS: BILIRUBIN,TOTAL 2.4 mg/dL (0.2-1); TOT PROT 8.5 g/dl (6.4-8.2)
[2020-12-06 12:48] LABS: ALK PHOS 218 U/L (45-117)
[2020-12-06 12:49] LABS: ANION GAP 7 MMOL/L (8-16); BLOOD UREA NITROGEN 9.4 mg/dL (7-18); CHLORIDE 108 mmol/L (98-107); CREATININE 0.7 mg/dL (0.55-1.3)
[2020-12-06 12:55] LABS: HEMOGLOBIN 8.7 GM/dL (10.7-15.3); MCH 30.6 pg (25.7-33.7); MCHC 34.7 g/dl (32.0-36.0); MEAN CELL VOLUME 87.9 fl (80-96); PLATELET COUNT 231 10^3/uL (134-434); RBC 2.84 M/mm3 (3.60-5.2); RDW 22.7 % (11.6-15.6); RETICULOCYTES 8.32 % (0.5-1.5); WHITE BLOOD COUNT 6.9 K/mm3 (4.0-10.0)
[2020-12-06] MEDS ORDERED: diphenhydrAMINE HCL 50 MG CAPSULE PO ONE (13:02)
[2020-12-06] MEDS ORDERED: diphenhydrAMINE HCL 25 MG CAPSULE (FP) PO ONE (13:03)
[2020-12-06 14:11] LABS: ANISOCYTOSIS 2+; MACROCYTOSIS 1+; PLATELET ESTIMATE NORMAL; SICKELED CELLS 2+; TARGET CELLS 2+
[2020-12-06] MEDS ORDERED: diphenhydrAMINE HCL 12.5 MG/5 ML UNIT-DOSE CUPS PO ONE (15:28)
[2020-12-06] MEDS ORDERED: diphenhydrAMINE HCL 12.5 MG/5 ML UNIT-DOSE CUPS ONE (16:11)
[2020-12-06 17:16] VITALS: BP 124/75; PULSE 88; TEMP 98.6
== END 2020-12-06 16:45 | disposition home or self-care (01) ==
LOC: JER 10:37
PROC: 3E033GC Introduction of Other Therapeutic Substance into Peripheral Vein, Percutaneous Approach (ICD-10-PCS; principal; 2020-12-06)
PROC: 3E033GC Introduction of Other Therapeutic Substance into Peripheral Vein, Percutaneous Approach (ICD-10-PCS; 2020-12-06)
PROC: 3E033GC Introduction of Other Therapeutic Substance into Peripheral Vein, Percutaneous Approach (ICD-10-PCS; 2020-12-06)
PROC: 3E033NZ Introduction of Analgesics, Hypnotics, Sedatives into Peripheral Vein, Percutaneous Approach (ICD-10-PCS; 2020-12-06)
PROC: 3E033NZ Introduction of Analgesics, Hypnotics, Sedatives into Peripheral Vein, Percutaneous Approach (ICD-10-PCS; 2020-12-06)
PROC: 3E033NZ Introduction of Analgesics, Hypnotics, Sedatives into Peripheral Vein, Percutaneous Approach (ICD-10-PCS; 2020-12-06)
PROC: 3E033GC Introduction of Other Therapeutic Substance into Peripheral Vein, Percutaneous Approach (ICD-10-PCS; 2020-12-06)
PROC: 3E0337Z Introduction of Electrolytic and Water Balance Substance into Peripheral Vein, Percutaneous Approach (ICD-10-PCS; 2020-12-06)
DX: D57.00 Hb-SS disease with crisis, unspecified (principal)
CPT/HCPCS: 36415; 71275-TC; 80053; 84484; 84703; 85025; 85045; 93005; 93010; 99285-25; Q9967

== ENCOUNTER 2020-12-25 04:20 | Emergency (ER) | payer OTHER ==
[2020-12-25] MEDS ORDERED: HYDROmorphone HCL CARPU-JECT 2 MG/1 ML DISP.SYRIN IVPUSH ONE ×2 (04:40→08:14)
[2020-12-25] MEDS ORDERED: SODIUM CHLORIDE 0.9% 500 ML INFUS.BAG IV ONE ×2 (04:40→05:52)
[2020-12-25 04:41] VITALS: BP 104/67; PULSE 86; TEMP 97.9; BMI 38.6
[2020-12-25] MEDS ORDERED: HYDROmorphone HCl 2 MG/ML VIAL ONE ×3 (04:47→08:46)
[2020-12-25] MEDS ORDERED: HYDROmorphone HCL CARPU-JECT 2 MG/1 ML DISP.SYRIN IVPB ONE (05:49)
[2020-12-25] MEDS ORDERED: DEXTROSE 5%-LACTATED RINGERS 1,000 ML IV SCH (08:00)
[2020-12-25 09:15] LABS: HEMATOCRIT 24.9 % (32.4-45.2); HEMOGLOBIN 8.8 GM/dL (10.7-15.3); MCH 30.5 pg (25.7-33.7); MCHC 35.2 g/dl (32.0-36.0); MEAN CELL VOLUME 86.8 fl (80-96); MEAN PLT VOLUME 8.1 fl (7.5-11.1); PLATELET COUNT 209 10^3/uL (134-434); RBC 2.87 M/mm3 (3.60-5.2); RDW 21.2 % (11.6-15.6); RETICULOCYTES 6.81 % (0.5-1.5); WHITE BLOOD COUNT 7.7 K/mm3 (4.0-10.0)
[2020-12-25 09:21] LABS: INR 1.09 (0.83-1.09); PROTHROMBIN TIME (PATIENT) 12.8 SEC (9.7-13.0)
[2020-12-25 09:22] LABS: ALBUMIN 3.3 g/dl (3.4-5.0); CALCIUM 8.3 mg/dL (8.5-10.1)
[2020-12-25 09:24] LABS: ACTIVATED PTT 26.6 SECONDS (25.2-36.5)
[2020-12-25 09:26] LABS: CREATININE 0.6 mg/dL (0.55-1.3)
[2020-12-25 09:27] LABS: BILIRUBIN,TOTAL 2.1 mg/dL (0.2-1); TOT PROT 8.2 g/dl (6.4-8.2)
[2020-12-25 10:54] LABS: ANISOCYTOSIS 2+; MACROCYTOSIS 1+; OVALOCYTE 2+; PLATELET ESTIMATE NORMAL; SICKELED CELLS 3+; TARGET CELLS 2+
== END 2020-12-25 12:05 ==
LOC: JER 04:20
DX: D57.219 Sickle-cell/Hb-C disease with crisis, unspecified (principal)
CPT/HCPCS: 36415; 80053; 83615; 84703; 85025; 85045; 85610; 85730; 86850; 86900; 86901; 99285-25; C9803; U0003; U0005

== ENCOUNTER 2021-01-07 13:38 | Emergency (ER) | payer OTHER ==
[2021-01-07 13:44] VITALS: BMI 38.6
[2021-01-07] MEDS ORDERED: ONDANSETRON 4 MG/2 ML VIAL IVPUSH ONE (14:14)
[2021-01-07] MEDS ORDERED: HYDROmorphone HCL CARPU-JECT 2 MG/1 ML DISP.SYRIN IVPUSH ONE (14:14)
[2021-01-07] MEDS ORDERED: HYDROmorphone HCL CARPU-JECT 2 MG/1 ML DISP.SYRIN IVPB ONE ×3 (14:16→17:42)
[2021-01-07] MEDS ORDERED: SODIUM CHLORIDE 0.45% 1,000 ML IV SCH (14:30)
[2021-01-07] MEDS ORDERED: ONDANSETRON 4 MG/2 ML VIAL ONE (14:47)
[2021-01-07] MEDS ORDERED: HYDROmorphone HCl 2 MG/ML VIAL ONE ×3 (14:47→17:48)
[2021-01-07 14:51] LABS: HEMATOCRIT 26.7 % (32.4-45.2); HEMOGLOBIN 9.3 GM/dL (10.7-15.3); MCH 29.9 pg (25.7-33.7); MCHC 34.7 g/dl (32.0-36.0); MEAN CELL VOLUME 86.2 fl (80-96); MEAN PLT VOLUME 7.5 fl (7.5-11.1); PLATELET COUNT 248 10^3/uL (134-434); RDW 20.8 % (11.6-15.6); RETICULOCYTES 6.98 % (0.5-1.5); WHITE BLOOD COUNT 9.4 K/mm3 (4.0-10.0)
[2021-01-07 14:58] LABS: INR 1.05 (0.83-1.09); PROTHROMBIN TIME (PATIENT) 11.8 SEC (9.7-13.0)
[2021-01-07 15:00] LABS: ACTIVATED PTT 91.1 SECONDS (25.2-36.5)
[2021-01-07 15:58] LABS: ANISOCYTOSIS 1+; MACROCYTOSIS 1+; PLATELET ESTIMATE NORMAL; SICKELED CELLS 2+; TARGET CELLS 1+
[2021-01-07 16:26] LABS: ALBUMIN 3.4 g/dl (3.4-5.0); BILIRUBIN,TOTAL 2.6 mg/dL (0.2-1); BLOOD UREA NITROGEN 8.3 mg/dL (7-18); CALCIUM 9.1 mg/dL (8.5-10.1); CREATININE 0.6 mg/dL (0.55-1.3); TOT PROT 8.9 g/dl (6.4-8.2)
[2021-01-07 17:46] VITALS: PULSE 77
[2021-01-07 17:47] VITALS: BP 112/76; TEMP 98.3
== END 2021-01-07 20:11 | disposition home or self-care (01) ==
LOC: JER 13:38
PROC: 3E033NZ Introduction of Analgesics, Hypnotics, Sedatives into Peripheral Vein, Percutaneous Approach (ICD-10-PCS; principal; 2021-01-07)
PROC: 3E033GC Introduction of Other Therapeutic Substance into Peripheral Vein, Percutaneous Approach (ICD-10-PCS; 2021-01-07)
PROC: 3E033GC Introduction of Other Therapeutic Substance into Peripheral Vein, Percutaneous Approach (ICD-10-PCS; 2021-01-07)
PROC: 3E033GC Introduction of Other Therapeutic Substance into Peripheral Vein, Percutaneous Approach (ICD-10-PCS; 2021-01-07)
PROC: 3E0337Z Introduction of Electrolytic and Water Balance Substance into Peripheral Vein, Percutaneous Approach (ICD-10-PCS; 2021-01-07)
DX: D57.00 Hb-SS disease with crisis, unspecified (principal)
CPT/HCPCS: 36415; 80053; 83615; 85025; 85045; 85610; 85730; 96361; 96374; 96375; 96376; 99285-25

== ENCOUNTER 2021-01-25 21:05 | Emergency (ER) | payer OTHER ==
[2021-01-25 21:50] VITALS: BP 118/77; PULSE 80; TEMP 98; BMI 38.2
[2021-01-26] MEDS ORDERED: ACETAMINOPHEN 1000 MG/100 ML VIAL IVPB ONE (02:41)
[2021-01-26] MEDS ORDERED: ONDANSETRON 4 MG/2 ML VIAL IVPUSH ONE (02:41)
[2021-01-26] MEDS ORDERED: ACETAMINOPHEN INJECTION 100 ML IVPB ONE (03:22)
[2021-01-26] MEDS ORDERED: ONDANSETRON 4 MG/2 ML VIAL ONE (03:22)
== END 2021-01-26 04:23 | disposition left against medical advice (07) ==
LOC: JER 21:05
DX: M54.50 Low back pain, unspecified (principal)
CPT/HCPCS: 71045-TC-FY; 99282-25

== ENCOUNTER 2021-02-03 17:36 | Emergency (ER) | payer OTHER ==
[2021-02-03 17:55] VITALS: PULSE 78; TEMP 98; BMI 35.4
[2021-02-03] MEDS ORDERED: HYDROmorphone HCL CARPU-JECT 2 MG/1 ML DISP.SYRIN IVPUSH ONE ×2 (18:14→20:24)
[2021-02-03] MEDS ORDERED: SODIUM CHLORIDE 0.9% 500 ML INFUS.BAG IV ONE (18:15)
[2021-02-03] MEDS ORDERED: HYDROmorphone HCl 2 MG/ML VIAL ONE ×2 (18:21→20:19)
[2021-02-03 21:04] VITALS: BP 112/78
== END 2021-02-03 21:05 | disposition home or self-care (01) ==
LOC: JER 17:36
PROC: 3E033GC Introduction of Other Therapeutic Substance into Peripheral Vein, Percutaneous Approach (ICD-10-PCS; principal; 2021-02-03)
PROC: 3E033NZ Introduction of Analgesics, Hypnotics, Sedatives into Peripheral Vein, Percutaneous Approach (ICD-10-PCS; 2021-02-03)
PROC: 3E033NZ Introduction of Analgesics, Hypnotics, Sedatives into Peripheral Vein, Percutaneous Approach (ICD-10-PCS; 2021-02-03)
DX: D57.219 Sickle-cell/Hb-C disease with crisis, unspecified (principal)
CPT/HCPCS: 99284-25

== ENCOUNTER 2021-02-21 13:14 | Emergency (ER) | payer OTHER ==
[2021-02-21 13:40] VITALS: BP 107/72; PULSE 73; TEMP 97.9; BMI 38.2
[2021-02-21] MEDS ORDERED: HYDROmorphone HCL CARPU-JECT 2 MG/1 ML DISP.SYRIN IVPUSH ONE ×3 (14:43→17:37)
[2021-02-21] MEDS ORDERED: ONDANSETRON 4 MG/2 ML VIAL IVPUSH ONE (14:43)
[2021-02-21] MEDS ORDERED: SODIUM CHLORIDE 0.9% 1000 ML INFUS.BAG IV ONE (14:43)
[2021-02-21] MEDS ORDERED: ONDANSETRON 4 MG/2 ML VIAL ONE (15:08)
[2021-02-21] MEDS ORDERED: HYDROmorphone HCl 2 MG/ML VIAL ONE ×2 (15:08→17:39)
[2021-02-21 15:39] LABS: HEMATOCRIT 27.2 % (32.4-45.2); HEMOGLOBIN 9.4 GM/dL (10.7-15.3); MCH 29.6 pg (25.7-33.7); MCHC 34.5 g/dl (32.0-36.0); MEAN CELL VOLUME 85.8 fl (80-96); MEAN PLT VOLUME 7.9 fl (7.5-11.1); PLATELET COUNT 247 10^3/uL (134-434); RBC 3.17 M/mm3 (3.60-5.2); RDW 21.2 % (11.6-15.6); RETICULOCYTES 5.47 % (0.5-1.5); WHITE BLOOD COUNT 6.4 K/mm3 (4.0-10.0)
[2021-02-21 16:04] LABS: ALBUMIN 3.7 g/dl (3.4-5.0); CALCIUM 9.5 mg/dL (8.5-10.1)
[2021-02-21 16:07] LABS: CREATININE 0.6 mg/dL (0.55-1.3)
[2021-02-21 16:08] LABS: TOT PROT 8.8 g/dl (6.4-8.2)
[2021-02-21 16:09] LABS: BILIRUBIN,TOTAL 2.3 mg/dL (0.2-1)
[2021-02-21] MEDS ORDERED: diphenhydrAMINE HCL 25 MG CAPSULE (FP) PO ONE ×2 (18:37→18:44)
== END 2021-02-21 19:13 | disposition home or self-care (01) ==
LOC: JER 13:14
PROC: 3E033GC Introduction of Other Therapeutic Substance into Peripheral Vein, Percutaneous Approach (ICD-10-PCS; principal; 2021-02-21)
PROC: 3E033GC Introduction of Other Therapeutic Substance into Peripheral Vein, Percutaneous Approach (ICD-10-PCS; 2021-02-21)
PROC: 3E033NZ Introduction of Analgesics, Hypnotics, Sedatives into Peripheral Vein, Percutaneous Approach (ICD-10-PCS; 2021-02-21)
PROC: 3E033NZ Introduction of Analgesics, Hypnotics, Sedatives into Peripheral Vein, Percutaneous Approach (ICD-10-PCS; 2021-02-21)
PROC: 3E033GC Introduction of Other Therapeutic Substance into Peripheral Vein, Percutaneous Approach (ICD-10-PCS; 2021-02-21)
DX: D57.219 Sickle-cell/Hb-C disease with crisis, unspecified (principal)
CPT/HCPCS: 36415; 71045-TC-FY; 80053; 85027; 85045; 96374; 96375; 96376; 99285-25; C9803-CS; U0003; U0005

== ENCOUNTER 2021-03-17 14:15 | Inpatient (IN) | payer OTHER ==
[2021-03-17 14:27] VITALS: BMI 38.2
[2021-03-17] MEDS ORDERED: HYDROmorphone HCL CARPU-JECT 2 MG/1 ML DISP.SYRIN IVPUSH ONE ×3 (15:01→19:47)
[2021-03-17] MEDS ORDERED: SODIUM CHLORIDE 0.9% 500 ML INFUS.BAG IV ONE ×2 (15:40→15:52)
[2021-03-17] MEDS ORDERED: HYDROmorphone HCl 2 MG/ML VIAL ONE ×4 (15:42→23:12)
[2021-03-17 20:46] LABS: HEMATOCRIT 25.6 % (32.4-45.2); HEMOGLOBIN 8.9 GM/dL (10.7-15.3); MCH 29.8 pg (25.7-33.7); MCHC 34.7 g/dl (32.0-36.0); MEAN CELL VOLUME 85.7 fl (80-96); MEAN PLT VOLUME 7.8 fl (7.5-11.1); PLATELET COUNT 219 10^3/uL (134-434); RBC 2.99 M/mm3 (3.60-5.2); RDW 20.9 % (11.6-15.6); WHITE BLOOD COUNT 7.7 K/mm3 (4.0-10.0)
[2021-03-17 21:09] LABS: CALCIUM 8.1 mg/dL (8.5-10.1)
[2021-03-17 21:10] LABS: ALBUMIN 3.5 g/dl (3.4-5.0); BLOOD UREA NITROGEN 10.1 mg/dL (7-18)
[2021-03-17 21:13] LABS: BILIRUBIN,TOTAL 2.9 mg/dL (0.2-1); CREATININE 0.8 mg/dL (0.55-1.3)
[2021-03-17 21:15] LABS: TOT PROT 8.5 g/dl (6.4-8.2)
[2021-03-17 22:52] LABS: ANISOCYTOSIS 1+; MACROCYTOSIS 1+; OVALOCYTE 2+; PLATELET ESTIMATE NORMAL; TARGET CELLS 2+; TEAR DROP CELLS 2+
[2021-03-17] MEDS ORDERED: diphenhydrAMINE HCL 25 MG CAPSULE (FP) PO PRN (22:54)
[2021-03-17] MEDS ORDERED: ONDANSETRON 4 MG/2 ML VIAL IVPUSH PRN (22:57)
[2021-03-17] MEDS ORDERED: HYDROmorphone HCl 2 MG/ML VIAL IVPUSH ONE (23:04)
[2021-03-17 23:07] LABS: EPI CELLS >36 /uL (0-25.1); HYALINE CASTS 1 /uL (0-3.1); PH,URINE 5.5 (5.0-8.0); URINE APPEARANCE CLEAR; URINE BACTERIA 2028 /uL (0-1359); URINE BILIRUBIN NEGATIVE (NEGATIVE); URINE COLOR DK YELLOW; URINE GLUCOSE (UA) NEGATIVE (NEGATIVE); URINE KETONE NEGATIVE (NEGATIVE); URINE LEUK ESTERASE TRACE (NEGATIVE); URINE NITRITE NEGATIVE (NEGATIVE); URINE PROTEIN 1+ (NEGATIVE); URINE RBC 37 /uL (0-23.9); URINE WBC 48 /uL (0-25.8)
[2021-03-17] MEDS: DEXTROSE 5%-0.45% SALINE 1,000 ML IV SCH (23:27)
[2021-03-18] MEDS ORDERED: HYDROmorphone HCL CARPU-JECT 2 MG/1 ML DISP.SYRIN IVPUSH PRN (00:37)
[2021-03-18] MEDS ORDERED: HYDROmorphone HCl 2 MG/ML VIAL IVPB PRN ×2 (00:53→01:19)
[2021-03-18] MEDS ORDERED: HYDROmorphone HCl 2 MG/ML VIAL IVPB ONE (01:16)
[2021-03-18] MEDS: MELATONIN 5 MG TABLETS PO SCH ×2 (04:18→21:20)
[2021-03-18] MEDS: HYDROmorphone HCl 2 MG/ML VIAL IVPB SCH ×6 (06:06→22:56)
[2021-03-18] MEDS: GABAPENTIN 400 MG CAPSULE PO SCH ×3 (06:08→21:20)
[2021-03-18] MEDS: APIXABAN 5 MG TABLET PO SCH ×2 (09:57→21:20)
[2021-03-18] MEDS ORDERED: PATIENT'S OWN MEDICATION (NON-FORMULARY) (Hydroxyzine Hcl [Hydroxyzine Hcl] 50 MG Tablet) PO SCH (10:00)
[2021-03-18] MEDS: hydrOXYzine HCL 10 MG/5 ML LIQUID BULK BOTTLE PO SCH (10:06)
[2021-03-18] MEDS: HYDROXYUREA 500 MG CAPSULE PO SCH (10:52)
[2021-03-18] MEDS: DEXTROSE 5%-0.45% SALINE 1,000 ML IV SCH (12:51)
[2021-03-18] MEDS: HYDROmorphone HCl 2 MG/ML VIAL IVPUSH PRN ×2 (12:55→17:53)
[2021-03-18 13:46] LABS: INR 1.15 (0.83-1.09); PROTHROMBIN TIME (PATIENT) 13.3 SEC (9.7-13.0)
[2021-03-18 13:47] LABS: HEMATOCRIT 25.2 % (32.4-45.2); HEMOGLOBIN 8.6 GM/dL (10.7-15.3); MCH 29.4 pg (25.7-33.7); MCHC 34.1 g/dl (32.0-36.0); MEAN CELL VOLUME 86.1 fl (80-96); MEAN PLT VOLUME 8.3 fl (7.5-11.1); PLATELET COUNT 226 10^3/uL (134-434); RBC 2.92 M/mm3 (3.60-5.2); RDW 20.6 % (11.6-15.6); WHITE BLOOD COUNT 7.7 K/mm3 (4.0-10.0)
[2021-03-18 13:48] LABS: ACTIVATED PTT 29.1 SECONDS (25.2-36.5)
[2021-03-18 14:24] LABS: CALCIUM 8.7 mg/dL (8.5-10.1)
[2021-03-18 14:25] LABS: ALBUMIN 3.5 g/dl (3.4-5.0); BLOOD UREA NITROGEN 8.8 mg/dL (7-18); MAGNESIUM 1.9 mg/dL (1.8-2.4)
[2021-03-18 14:28] LABS: BILIRUBIN,TOTAL 2.9 mg/dL (0.2-1); CREATININE 0.6 mg/dL (0.55-1.3); PHOSPHOROUS 4.7 mg/dL (2.5-4.9); TOT PROT 8.1 g/dl (6.4-8.2)
[2021-03-18 14:54] LABS: ANISOCYTOSIS 2+; MACROCYTOSIS 1+; OVALOCYTE 2+; PLATELET ESTIMATE NORMAL; SICKELED CELLS 1+; TARGET CELLS 2+; TEAR DROP CELLS 1+
[2021-03-19] MEDS ORDERED: HYDROmorphone HCl 2 MG/ML VIAL IVPB PRN (00:04)
[2021-03-19] MEDS: DEXTROSE 5%-0.45% SALINE 1,000 ML IV SCH (00:40)
[2021-03-19] MEDS: HYDROmorphone HCl 2 MG/ML VIAL IVPB SCH ×6 (05:05→21:30)
[2021-03-19] MEDS: GABAPENTIN 400 MG CAPSULE PO SCH ×3 (06:08→21:29)
[2021-03-19 08:31] LABS: CALCIUM 8.7 mg/dL (8.5-10.1)
[2021-03-19 08:33] LABS: ALBUMIN 3.6 g/dl (3.4-5.0); BLOOD UREA NITROGEN 8.9 mg/dL (7-18); CREATININE 0.7 mg/dL (0.55-1.3); MAGNESIUM 1.8 mg/dL (1.8-2.4)
[2021-03-19 08:34] LABS: BILIRUBIN,TOTAL 3.3 mg/dL (0.2-1); TOT PROT 8.3 g/dl (6.4-8.2)
[2021-03-19 08:36] LABS: BASO % 0.9 % (0-2.0); EOS % 1.1 % (0-4.5); HEMATOCRIT 25.7 % (32.4-45.2); HEMOGLOBIN 8.8 GM/dL (10.7-15.3); LYMPH % 31.2 % (8-40); MCH 29.3 pg (25.7-33.7); MCHC 34.1 g/dl (32.0-36.0); MEAN CELL VOLUME 85.8 fl (80-96); MEAN PLT VOLUME 8.7 fl (7.5-11.1); MONO % 11.8 % (3.8-10.2); PLATELET COUNT 270 10^3/uL (134-434); RDW 22.1 % (11.6-15.6); WHITE BLOOD COUNT 10.4 K/mm3 (4.0-10.0)
[2021-03-19] MEDS: APIXABAN 5 MG TABLET PO SCH ×2 (09:58→21:30)
[2021-03-19] MEDS: HYDROXYUREA 500 MG CAPSULE PO SCH (09:59)
[2021-03-19] MEDS: hydrOXYzine HCL 10 MG/5 ML LIQUID BULK BOTTLE PO SCH (09:59)
[2021-03-19] MEDS ORDERED: ONDANSETRON 4 MG/2 ML VIAL IVPUSH PRN (18:25)
[2021-03-19] MEDS ORDERED: MELATONIN 5 MG TABLETS PO SCH (22:00)
[2021-03-19] MEDS: HYDROmorphone HCl 2 MG/ML VIAL IVPB PRN (23:36)
[2021-03-20] MEDS: HYDROmorphone HCl 2 MG/ML VIAL IVPB SCH ×6 (01:32→22:08)
[2021-03-20] MEDS: DEXTROSE 5%-0.45% SALINE 1,000 ML IV SCH ×2 (01:37→12:41)
[2021-03-20] MEDS: HYDROmorphone HCl 2 MG/ML VIAL IVPB PRN ×3 (03:38→21:00)
[2021-03-20] MEDS: GABAPENTIN 400 MG CAPSULE PO SCH ×2 (06:45→13:43)
[2021-03-20 08:40] VITALS: BP 103/56; PULSE 88; TEMP 98.5
[2021-03-20 08:46] LABS: HEMATOCRIT 23.2 % (32.4-45.2); HEMOGLOBIN 8.4 GM/dL (10.7-15.3); MCH 30.3 pg (25.7-33.7); MCHC 36.4 g/dl (32.0-36.0); MEAN CELL VOLUME 83.3 fl (80-96); MEAN PLT VOLUME 8.3 fl (7.5-11.1); PLATELET COUNT 223 10^3/uL (134-434); RBC 2.79 M/mm3 (3.60-5.2); RDW 23.6 % (11.6-15.6); WHITE BLOOD COUNT 9.6 K/mm3 (4.0-10.0)
[2021-03-20 08:48] LABS: ADD RBC MORPHOLOGY YES
[2021-03-20 08:53] LABS: ALBUMIN 3.6 g/dl (3.4-5.0); CALCIUM 8.4 mg/dL (8.5-10.1); MAGNESIUM 1.8 mg/dL (1.8-2.4)
[2021-03-20 08:55] LABS: BLOOD UREA NITROGEN 9.5 mg/dL (7-18)
[2021-03-20 08:57] LABS: CREATININE 0.6 mg/dL (0.55-1.3)
[2021-03-20 08:59] LABS: BILIRUBIN,TOTAL 3.6 mg/dL (0.2-1); TOT PROT 8.1 g/dl (6.4-8.2)
[2021-03-20 09:44] LABS: ANISOCYTOSIS 0; MACROCYTOSIS 0; OVALOCYTE 1+; PLATELET ESTIMATE NORMAL
[2021-03-20] MEDS ORDERED: HYDROXYUREA 500 MG CAPSULE PO SCH (10:00)
[2021-03-20] MEDS ORDERED: hydrOXYzine HCL 10 MG/5 ML LIQUID BULK BOTTLE PO SCH (10:00)
[2021-03-20] MEDS: APIXABAN 5 MG TABLET PO SCH (10:08)
== END 2021-03-21 00:15 | disposition home or self-care (01) | DRG 812 ==
LOC: JER 14:15 → OBSVTOIN 19:49 → JERBED 19:49 → J4S 03-18 00:11 → J7W 03-19 16:00
PROVIDERS: ADMIT Hospitalist; ATTEND Nurse Practitioner Acute Care
DX: D57.00 Hb-SS disease with crisis, unspecified (principal); K76.6 Portal hypertension; F11.20 Opioid dependence, uncomplicated; Z86.718 Personal history of other venous thrombosis and embolism; Z79.01 Long term (current) use of anticoagulants; K74.60 Unspecified cirrhosis of liver; F39 Unspecified mood [affective] disorder
CPT/HCPCS: 36415; 71045-TC-FY; 80053; 81003; 83690; 83735; 84100; 85025; 85045; 85610; 85730; 87070; 87086; 87186; 87205; 87804; 99285-25; C9803; J8999; U0003; U0005

== ENCOUNTER 2021-04-14 10:56 | Emergency (ER) | payer OTHER ==
[2021-04-14 11:19] VITALS: BP 118/79; PULSE 97; TEMP 98.2; BMI 38.2
[2021-04-14] MEDS ORDERED: SODIUM CHLORIDE 0.9% 500 ML INFUS.BAG IV ONE (12:01)
[2021-04-14] MEDS ORDERED: ONDANSETRON 4 MG/2 ML VIAL IVPUSH ONE (12:01)
[2021-04-14] MEDS ORDERED: ONDANSETRON 4 MG/2 ML VIAL ONE (12:24)
[2021-04-14 13:03] LABS: HCG,QUALITATIVE URINE Negative
[2021-04-14] MEDS ORDERED: HYDROmorphone HCL CARPU-JECT 2 MG/1 ML DISP.SYRIN IVPUSH ONE ×2 (13:04→15:04)
[2021-04-14 13:05] LABS: EPI CELLS 14 /uL (0-25.1); HYALINE CASTS 0 /uL (0-3.1); PH,URINE 6.5 (5.0-8.0); URINE APPEARANCE CLEAR; URINE BACTERIA 181 /uL (0-1359); URINE BILIRUBIN NEGATIVE (NEGATIVE); URINE COLOR YELLOW; URINE GLUCOSE (UA) NEGATIVE (NEGATIVE); URINE KETONE NEGATIVE (NEGATIVE); URINE LEUK ESTERASE NEGATIVE (NEGATIVE); URINE NITRITE NEGATIVE (NEGATIVE); URINE PROTEIN TRACE (NEGATIVE); URINE RBC 23 /uL (0-23.9); URINE UROBILINOGEN 4.0 E.U/dl mg/dL (0.2-1.0); URINE WBC 3 /uL (0-25.8)
[2021-04-14] MEDS ORDERED: HYDROmorphone HCl 2 MG/ML VIAL ONE ×2 (13:30→15:44)
[2021-04-14 13:44] LABS: HEMATOCRIT 27.9 % (32.4-45.2); HEMOGLOBIN 9.4 GM/dL (10.7-15.3); MCH 29.5 pg (25.7-33.7); MCHC 33.6 g/dl (32.0-36.0); MEAN CELL VOLUME 87.6 fl (80-96); MEAN PLT VOLUME 8.3 fl (7.5-11.1); PLATELET COUNT 214 10^3/uL (134-434); RBC 3.19 M/mm3 (3.60-5.2); RDW 20.6 % (11.6-15.6); RETICULOCYTES 5.63 % (0.5-1.5); WHITE BLOOD COUNT 6.8 K/mm3 (4.0-10.0)
[2021-04-14 13:57] LABS: CALCIUM 8.5 mg/dL (8.5-10.1)
[2021-04-14 13:58] LABS: ALBUMIN 3.6 g/dl (3.4-5.0); BLOOD UREA NITROGEN 5.3 mg/dL (7-18)
[2021-04-14 14:01] LABS: CREATININE 0.8 mg/dL (0.55-1.3)
[2021-04-14 14:03] LABS: BILIRUBIN,TOTAL 2.8 mg/dL (0.2-1); TOT PROT 8.1 g/dl (6.4-8.2)
[2021-04-14 14:18] LABS: ANISOCYTOSIS 1+; MACROCYTOSIS 1+; SICKELED CELLS 2+; TARGET CELLS 2+
== END 2021-04-14 18:41 | disposition home or self-care (01) ==
LOC: JER 10:56
PROC: 3E033GC Introduction of Other Therapeutic Substance into Peripheral Vein, Percutaneous Approach (ICD-10-PCS; principal; 2021-04-14)
DX: D57.00 Hb-SS disease with crisis, unspecified (principal)
CPT/HCPCS: 36415; 71046-TC-FY; 80053; 81003; 83615; 84484; 84703; 85025; 85045; 87086; 93005; 93010; 99285-25

== ENCOUNTER 2021-05-06 23:58 | Emergency (ER) | payer OTHER ==
[2021-05-07 00:10] VITALS: BMI 37.5
[2021-05-07] MEDS ORDERED: HYDROmorphone HCL CARPU-JECT 2 MG/1 ML DISP.SYRIN IVPUSH ONE ×3 (01:09→07:35)
[2021-05-07] MEDS ORDERED: ONDANSETRON *ODT* 4 MG TABLET SL ONE ×2 (02:28→04:43)
[2021-05-07] MEDS ORDERED: HYDROmorphone HCl 2 MG/ML VIAL ONE ×3 (02:29→07:41)
[2021-05-07] MEDS ORDERED: ONDANSETRON *ODT* 4 MG TABLET ONE (05:02)
[2021-05-07] MEDS ORDERED: DEXTROSE 5%-NORMAL SALINE 500 ML IV ONE (05:09)
[2021-05-07 06:26] VITALS: TEMP 98.1
[2021-05-07 07:56] VITALS: BP 115/60; PULSE 84
== END 2021-05-07 10:25 | disposition home or self-care (01) ==
LOC: JER 23:58
PROC: 3E033GC Introduction of Other Therapeutic Substance into Peripheral Vein, Percutaneous Approach (ICD-10-PCS; principal; 2021-05-06)
PROC: 3E033GC Introduction of Other Therapeutic Substance into Peripheral Vein, Percutaneous Approach (ICD-10-PCS; 2021-05-06)
PROC: 3E033GC Introduction of Other Therapeutic Substance into Peripheral Vein, Percutaneous Approach (ICD-10-PCS; 2021-05-06)
PROC: 3E033GC Introduction of Other Therapeutic Substance into Peripheral Vein, Percutaneous Approach (ICD-10-PCS; 2021-05-06)
PROC: 3E033GC Introduction of Other Therapeutic Substance into Peripheral Vein, Percutaneous Approach (ICD-10-PCS; 2021-05-06)
PROC: 3E033NZ Introduction of Analgesics, Hypnotics, Sedatives into Peripheral Vein, Percutaneous Approach (ICD-10-PCS; 2021-05-06)
PROC: 3E033NZ Introduction of Analgesics, Hypnotics, Sedatives into Peripheral Vein, Percutaneous Approach (ICD-10-PCS; 2021-05-06)
PROC: 3E033NZ Introduction of Analgesics, Hypnotics, Sedatives into Peripheral Vein, Percutaneous Approach (ICD-10-PCS; 2021-05-06)
DX: D57.00 Hb-SS disease with crisis, unspecified (principal)
CPT/HCPCS: 99284-25; Q0162

== ENCOUNTER 2021-05-27 20:45 | Emergency (ER) | payer OTHER ==
[2021-05-27 20:55] VITALS: BMI 38.0
[2021-05-27] MEDS ORDERED: ONDANSETRON 4 MG/2 ML VIAL IVPUSH ONE (22:06)
[2021-05-27] MEDS ORDERED: HYDROmorphone HCL CARPU-JECT 2 MG/1 ML DISP.SYRIN IVPUSH ONE (22:06)
[2021-05-27] MEDS ORDERED: SODIUM CHLORIDE 0.9% 500 ML INFUS.BAG IV ONE (22:08)
[2021-05-27] MEDS ORDERED: ONDANSETRON 4 MG/2 ML VIAL ONE (22:16)
[2021-05-27] MEDS ORDERED: HYDROmorphone HCl 2 MG/ML VIAL ONE (22:16)
[2021-05-27 23:46] LABS: ALBUMIN 3.2 g/dl (3.4-5.0)
[2021-05-27 23:47] LABS: BLOOD UREA NITROGEN 9.9 mg/dL (7-18)
[2021-05-27 23:50] LABS: CREATININE 0.6 mg/dL (0.55-1.3)
[2021-05-27 23:51] LABS: BILIRUBIN,TOTAL 2.5 mg/dL (0.2-1); TOT PROT 8.2 g/dl (6.4-8.2)
[2021-05-27 23:52] LABS: HEMATOCRIT 24.6 % (32.4-45.2); HEMOGLOBIN 8.7 GM/dL (10.7-15.3); MCH 30.7 pg (25.7-33.7); MCHC 35.5 g/dl (32.0-36.0); MEAN CELL VOLUME 86.4 fl (80-96); MEAN PLT VOLUME 7.8 fl (7.5-11.1); PLATELET COUNT 200 10^3/uL (134-434); RBC 2.85 M/mm3 (3.60-5.2); RDW 23.1 % (11.6-15.6); RETICULOCYTES 10.69 % (0.5-1.5); WHITE BLOOD COUNT 7.8 K/mm3 (4.0-10.0)
[2021-05-27 23:55] LABS: ADD RBC MORPHOLOGY YES
[2021-05-28] MEDS ORDERED: HYDROmorphone HCL CARPU-JECT 2 MG/1 ML DISP.SYRIN IVPUSH ONE ×2 (01:17→04:12)
[2021-05-28] MEDS ORDERED: HYDROmorphone HCl 2 MG/ML VIAL ONE ×2 (01:24→04:14)
[2021-05-28] MEDS ORDERED: DEXTROSE 5%-WATER - 1,000 ML IV SCH (01:30)
[2021-05-28 01:55] VITALS: BP 110/72; PULSE 76; TEMP 97.7
[2021-05-28 02:23] LABS: ANISOCYTOSIS 2+; MACROCYTOSIS 2+; ROULEAU 2+; SICKELED CELLS 2+
== END 2021-05-28 05:34 | disposition home or self-care (01) ==
LOC: JER 20:45
PROC: 3E033GC Introduction of Other Therapeutic Substance into Peripheral Vein, Percutaneous Approach (ICD-10-PCS; principal; 2021-05-27)
PROC: 3E033GC Introduction of Other Therapeutic Substance into Peripheral Vein, Percutaneous Approach (ICD-10-PCS; 2021-05-27)
PROC: 3E033GC Introduction of Other Therapeutic Substance into Peripheral Vein, Percutaneous Approach (ICD-10-PCS; 2021-05-27)
PROC: 3E033GC Introduction of Other Therapeutic Substance into Peripheral Vein, Percutaneous Approach (ICD-10-PCS; 2021-05-27)
PROC: 3E033GC Introduction of Other Therapeutic Substance into Peripheral Vein, Percutaneous Approach (ICD-10-PCS; 2021-05-27)
PROC: 3E033GC Introduction of Other Therapeutic Substance into Peripheral Vein, Percutaneous Approach (ICD-10-PCS; 2021-05-27)
PROC: 3E033NZ Introduction of Analgesics, Hypnotics, Sedatives into Peripheral Vein, Percutaneous Approach (ICD-10-PCS; 2021-05-27)
PROC: 3E033NZ Introduction of Analgesics, Hypnotics, Sedatives into Peripheral Vein, Percutaneous Approach (ICD-10-PCS; 2021-05-27)
PROC: 3E033NZ Introduction of Analgesics, Hypnotics, Sedatives into Peripheral Vein, Percutaneous Approach (ICD-10-PCS; 2021-05-27)
PROC: 3E033GC Introduction of Other Therapeutic Substance into Peripheral Vein, Percutaneous Approach (ICD-10-PCS; 2021-05-27)
DX: D57.219 Sickle-cell/Hb-C disease with crisis, unspecified (principal)
CPT/HCPCS: 36415; 80053; 83615; 84703; 85025; 85045; 99285-25

== ENCOUNTER 2021-06-09 23:09 | Observation (INO) | payer OTHER ==
[2021-06-09 23:20] VITALS: BMI 38.0
[2021-06-10] MEDS ORDERED: HYDROmorphone HCL CARPU-JECT 2 MG/1 ML DISP.SYRIN IVPUSH ONE ×2 (00:04→01:30)
[2021-06-10] MEDS ORDERED: ONDANSETRON 4 MG/2 ML VIAL IVPUSH ONE ×2 (00:05→01:30)
[2021-06-10] MEDS ORDERED: diphenhydrAMINE HCL 12.5 MG/5 ML UNIT-DOSE CUPS PO ONE (00:05)
[2021-06-10] MEDS ORDERED: DEXTROSE 5%-0.45% SALINE 1,000 ML IV SCH ×2 (00:15→04:37)
[2021-06-10] MEDS ORDERED: diphenhydrAMINE HCL 25 MG CAPSULE (FP) PO ONE ×3 (00:23→02:04)
[2021-06-10] MEDS ORDERED: HYDROmorphone HCl 2 MG/ML VIAL ONE ×2 (00:24→01:45)
[2021-06-10] MEDS ORDERED: ONDANSETRON 4 MG/2 ML VIAL ONE ×2 (00:24→01:45)
[2021-06-10 00:44] LABS: HEMATOCRIT 27.3 % (32.4-45.2); HEMOGLOBIN 9.1 GM/dL (10.7-15.3); MCH 29.3 pg (25.7-33.7); MCHC 33.5 g/dl (32.0-36.0); MEAN CELL VOLUME 87.3 fl (80-96); MEAN PLT VOLUME 7.9 fl (7.5-11.1); PLATELET COUNT 240 10^3/uL (134-434); RBC 3.12 M/mm3 (3.60-5.2); RDW 20.9 % (11.6-15.6); WHITE BLOOD COUNT 7.1 K/mm3 (4.0-10.0)
[2021-06-10 01:01] LABS: ALBUMIN 3.5 g/dl (3.4-5.0); CALCIUM 8.5 mg/dL (8.5-10.1)
[2021-06-10 01:04] LABS: CREATININE 0.7 mg/dL (0.55-1.3)
[2021-06-10 01:06] LABS: BILIRUBIN,TOTAL 2.4 mg/dL (0.2-1); TOT PROT 8.2 g/dl (6.4-8.2)
[2021-06-10] MEDS ORDERED: diphenhydrAMINE HCL 50 MG CAPSULE PO ONE (01:29)
[2021-06-10] MEDS ORDERED: SENNOSIDES 8.6MG TABLET (FP) PO PRN (03:27)
[2021-06-10] MEDS ORDERED: POLYETHYLENE GLYCOL (HEALTHYLAX) 3350 17 GM PACKET PO PRN (03:27)
[2021-06-10] MEDS ORDERED: ONDANSETRON 4 MG/2 ML VIAL IVPUSH PRN (04:47)
[2021-06-10] MEDS: HYDROmorphone HCl 2 MG/ML VIAL IVPUSH PRN ×2 (06:00→10:01)
[2021-06-10] MEDS: GABAPENTIN 400 MG CAPSULE PO SCH ×2 (06:24→13:48)
[2021-06-10 07:09] LABS: ANISOCYTOSIS 2+; MACROCYTOSIS 1+; OVALOCYTE 1+; ROULEAU 1+; SICKELED CELLS 2+; TARGET CELLS 2+
[2021-06-10] MEDS ORDERED: HYDROmorphone HCl 2 MG/ML VIAL IVPUSH PRN (08:00)
[2021-06-10] MEDS ORDERED: NADOLOL 20 MG TABLET (FP) ONE (09:47)
[2021-06-10] MEDS ORDERED: CLOTRIMAZOLE 1% CREAM TP SCH (10:00)
[2021-06-10] MEDS ORDERED: HYDROXYUREA 500 MG CAPSULE PO SCH (10:00)
[2021-06-10] MEDS ORDERED: MULTIVITAMINS (DAILY MVI) TABLET (FP) PO SCH (10:00)
[2021-06-10] MEDS ORDERED: APIXABAN 5 MG TABLET PO SCH (10:00)
[2021-06-10] MEDS ORDERED: FOLIC ACID 1 MG TABLET (FP) PO SCH ×2 (10:00→11:30)
[2021-06-10] MEDS ORDERED: NADOLOL 40 MG TABLET (FP) PO SCH (10:00)
[2021-06-10] MEDS ORDERED: MINERAL OIL/PET HY-PHL TOPICAL OINTMENT 454 GM JAR TP SCH (10:00)
[2021-06-10] MEDS: DEXTROSE 5%-0.45% SALINE 1,000 ML IV SCH ×2 (11:56→12:31)
[2021-06-10] MEDS ORDERED: FOLIC ACID 1 MG TABLET (FP) PO ONE ×2 (12:00→12:15)
[2021-06-10 18:49] VITALS: BP 109/59; PULSE 77; TEMP 98.7
[2021-06-11] MEDS ORDERED: FOLIC ACID 1 MG TABLET (FP) PO SCH (12:00)
== END 2021-06-10 19:21 | disposition home or self-care (01) ==
LOC: JER 23:09 → JERBED 06-10 02:44 → J5S 06-10 05:26
PROVIDERS: ADMIT Hospitalist; ATTEND Internal Medicine
PROC: 3E0337Z Introduction of Electrolytic and Water Balance Substance into Peripheral Vein, Percutaneous Approach (ICD-10-PCS; principal; 2021-06-10)
PROC: 3E033GC Introduction of Other Therapeutic Substance into Peripheral Vein, Percutaneous Approach (ICD-10-PCS; 2021-06-10)
PROC: 3E033NZ Introduction of Analgesics, Hypnotics, Sedatives into Peripheral Vein, Percutaneous Approach (ICD-10-PCS; 2021-06-10)
PROC: 3E033GC Introduction of Other Therapeutic Substance into Peripheral Vein, Percutaneous Approach (ICD-10-PCS; 2021-06-10)
DX: D57.1 Sickle-cell disease without crisis (principal); K74.60 Unspecified cirrhosis of liver; K76.6 Portal hypertension; I85.10 Secondary esophageal varices without bleeding; Z79.01 Long term (current) use of anticoagulants; F39 Unspecified mood [affective] disorder; F11.20 Opioid dependence, uncomplicated; Z88.6 Allergy status to analgesic agent; Z90.81 Acquired absence of spleen; Z86.718 Personal history of other venous thrombosis and embolism
CPT/HCPCS: 36415; 80053; 85025; 85045; 93005; 93010; 96361; 96365; 96367; 96375; 96376; 99285-25; C9803-CS; G0378; J8999; U0003; U0005

== ENCOUNTER 2021-07-10 07:05 | Inpatient (IN) | payer OTHER ==
[2021-07-10 07:29] VITALS: BMI 38.0
[2021-07-10] MEDS ORDERED: HYDROmorphone HCL CARPU-JECT 2 MG/1 ML DISP.SYRIN IVPUSH ONE ×4 (08:18→15:22)
[2021-07-10] MEDS ORDERED: SODIUM CHLORIDE 0.9% 500 ML INFUS.BAG IV ONE (08:19)
[2021-07-10] MEDS ORDERED: ONDANSETRON 4 MG/2 ML VIAL IVPUSH ONE (08:19)
[2021-07-10] MEDS ORDERED: ONDANSETRON 4 MG/2 ML VIAL ONE (08:44)
[2021-07-10] MEDS ORDERED: HYDROmorphone HCl 2 MG/ML VIAL ONE ×7 (08:44→21:54)
[2021-07-10 10:12] LABS: HEMATOCRIT 26.4 % (32.4-45.2); HEMOGLOBIN 9.1 GM/dL (10.7-15.3); MCH 29.8 pg (25.7-33.7); MCHC 34.4 g/dl (32.0-36.0); MEAN CELL VOLUME 86.6 fl (80-96); MEAN PLT VOLUME 8.4 fl (7.5-11.1); PLATELET COUNT 229 10^3/uL (134-434); RBC 3.05 M/mm3 (3.60-5.2); RDW 21.7 % (11.6-15.6); WHITE BLOOD COUNT 8.2 K/mm3 (4.0-10.0)
[2021-07-10 10:28] LABS: CALCIUM 8.6 mg/dL (8.5-10.1)
[2021-07-10 10:29] LABS: ALBUMIN 3.4 g/dl (3.4-5.0); BLOOD UREA NITROGEN 8.3 mg/dL (7-18)
[2021-07-10 10:32] LABS: CREATININE 0.7 mg/dL (0.55-1.3)
[2021-07-10 10:33] LABS: TOT PROT 8.1 g/dl (6.4-8.2)
[2021-07-10 12:43] LABS: ANISOCYTOSIS 2+; MACROCYTOSIS 1+; OVALOCYTE 2+; TARGET CELLS 2+
[2021-07-10 12:59] LABS: RETICULOCYTES 8.39 % (0.5-1.5)
[2021-07-10] MEDS ORDERED: DOCUSATE SODIUM 100 MG CAPSULE (FP) PO ONE ×2 (15:22→15:44)
[2021-07-10] MEDS ORDERED: HYDROmorphone HCl 2 MG/ML VIAL IVPUSH PRN (17:04)
[2021-07-10] MEDS ORDERED: LACTATED RINGERS SOLUTION 1,000 ML IV SCH (17:15)
[2021-07-10 21:07] VITALS: BP 101/60; PULSE 55; TEMP 97.8
[2021-07-10] MEDS ORDERED: HYDROmorphone HCl 2 MG/ML VIAL IVPUSH ONE (21:50)
[2021-07-10] MEDS ORDERED: INSULIN SLIDING SCALE (NOVOLOG) 1 VIAL SQ SCH (22:00)
[2021-07-10] MEDS ORDERED: APIXABAN 5 MG TABLET PO SCH (22:00)
[2021-07-10] MEDS ORDERED: GABAPENTIN 400 MG CAPSULE PO SCH (22:00)
[2021-07-10] MEDS ORDERED: HYDROXYUREA 500 MG CAPSULE PO SCH (22:00)
[2021-07-11] MEDS ORDERED: FOLIC ACID 1 MG TABLET (FP) PO SCH (10:00)
[2021-07-11] MEDS ORDERED: MULTIVITAMINS (DAILY MVI) TABLET (FP) PO SCH (10:00)
== END 2021-07-10 22:49 | disposition left against medical advice (07) | DRG 812 ==
LOC: JER 07:05 → JERBED 12:57 → OBSVTOIN 17:10
PROVIDERS: ADMIT Internal Medicine; ATTEND Internal Medicine
DX: D57.00 Hb-SS disease with crisis, unspecified (principal); K76.6 Portal hypertension; K74.60 Unspecified cirrhosis of liver; Z86.718 Personal history of other venous thrombosis and embolism; K76.89 Other specified diseases of liver
CPT/HCPCS: 0241U-QW; 36415; 80053; 83010; 83615; 85025; 85045; 99285-25; G0378

== ENCOUNTER 2021-08-06 03:15 | Emergency (ER) | payer OTHER ==
[2021-08-06 03:40] VITALS: BP 106/72; PULSE 65; TEMP 97.6; BMI 36.8
[2021-08-06] MEDS ORDERED: HYDROmorphone HCL CARPU-JECT 2 MG/1 ML DISP.SYRIN IVPUSH ONE ×3 (03:54→08:18)
[2021-08-06] MEDS ORDERED: ONDANSETRON 4 MG/2 ML VIAL IVPUSH ONE ×2 (03:54→06:01)
[2021-08-06] MEDS ORDERED: HYDROmorphone HCl 2 MG/ML VIAL ONE ×3 (04:19→08:19)
[2021-08-06] MEDS ORDERED: ONDANSETRON 4 MG/2 ML VIAL ONE ×2 (04:19→06:06)
[2021-08-06] MEDS ORDERED: DEXTROSE 5%-0.45% SALINE 1,000 ML IV SCH (06:45)
[2021-08-06] MEDS ORDERED: HEPARIN NA (PORCINE) 5,000 UNITS/ML 1ML VIAL ONE (09:25)
== END 2021-08-06 10:50 | disposition home or self-care (01) ==
LOC: JER 03:15
PROC: 3E033GC Introduction of Other Therapeutic Substance into Peripheral Vein, Percutaneous Approach (ICD-10-PCS; principal; 2021-08-06)
PROC: 3E033GC Introduction of Other Therapeutic Substance into Peripheral Vein, Percutaneous Approach (ICD-10-PCS; 2021-08-06)
PROC: 3E033GC Introduction of Other Therapeutic Substance into Peripheral Vein, Percutaneous Approach (ICD-10-PCS; 2021-08-06)
PROC: 3E033GC Introduction of Other Therapeutic Substance into Peripheral Vein, Percutaneous Approach (ICD-10-PCS; 2021-08-06)
PROC: 3E033GC Introduction of Other Therapeutic Substance into Peripheral Vein, Percutaneous Approach (ICD-10-PCS; 2021-08-06)
PROC: 3E033GC Introduction of Other Therapeutic Substance into Peripheral Vein, Percutaneous Approach (ICD-10-PCS; 2021-08-06)
PROC: 3E033GC Introduction of Other Therapeutic Substance into Peripheral Vein, Percutaneous Approach (ICD-10-PCS; 2021-08-06)
PROC: 3E033NZ Introduction of Analgesics, Hypnotics, Sedatives into Peripheral Vein, Percutaneous Approach (ICD-10-PCS; 2021-08-06)
PROC: 3E033NZ Introduction of Analgesics, Hypnotics, Sedatives into Peripheral Vein, Percutaneous Approach (ICD-10-PCS; 2021-08-06)
PROC: 3E033NZ Introduction of Analgesics, Hypnotics, Sedatives into Peripheral Vein, Percutaneous Approach (ICD-10-PCS; 2021-08-06)
PROC: 3E033GC Introduction of Other Therapeutic Substance into Peripheral Vein, Percutaneous Approach (ICD-10-PCS; 2021-08-06)
PROC: 3E033GC Introduction of Other Therapeutic Substance into Peripheral Vein, Percutaneous Approach (ICD-10-PCS; 2021-08-06)
PROC: 3E033GC Introduction of Other Therapeutic Substance into Peripheral Vein, Percutaneous Approach (ICD-10-PCS; 2021-08-06)
DX: D57.00 Hb-SS disease with crisis, unspecified (principal)
CPT/HCPCS: 99284-25

== ENCOUNTER 2021-08-25 00:49 | Emergency (ER) | payer OTHER ==
[2021-08-25 01:21] VITALS: BP 114/71; PULSE 71; TEMP 97.8; BMI 37.2
[2021-08-25] MEDS ORDERED: LACTATED RINGERS SOLUTION 1000 ML INFUS.BAG IV ONE (03:43)
[2021-08-25] MEDS ORDERED: ONDANSETRON 4 MG/2 ML VIAL IVPUSH ONE (03:43)
[2021-08-25] MEDS ORDERED: HYDROmorphone HCL CARPU-JECT 2 MG/1 ML DISP.SYRIN IVPUSH ONE ×3 (03:44→08:31)
[2021-08-25] MEDS ORDERED: HYDROmorphone HCl 2 MG/ML VIAL ONE ×3 (04:21→08:51)
[2021-08-25] MEDS ORDERED: ONDANSETRON 4 MG/2 ML VIAL ONE (04:21)
[2021-08-25 05:06] LABS: HEMATOCRIT 26.2 % (32.4-45.2); HEMOGLOBIN 9.2 GM/dL (10.7-15.3); MCH 29.5 pg (25.7-33.7); MCHC 35.2 g/dl (32.0-36.0); MEAN CELL VOLUME 83.7 fl (80-96); MEAN PLT VOLUME 8.5 fl (7.5-11.1); PLATELET COUNT 242 10^3/uL (134-434); RBC 3.13 M/mm3 (3.60-5.2); RDW 21.7 % (11.6-15.6); WHITE BLOOD COUNT 8.6 K/mm3 (4.0-10.0)
[2021-08-25 05:33] LABS: ALBUMIN 3.4 g/dl (3.4-5.0); BLOOD UREA NITROGEN 8.3 mg/dL (7-18); CALCIUM 8.6 mg/dL (8.5-10.1)
[2021-08-25 05:36] LABS: CREATININE 0.9 mg/dL (0.55-1.3)
[2021-08-25 05:38] LABS: BILIRUBIN,TOTAL 2.6 mg/dL (0.2-1); TOT PROT 8.4 g/dl (6.4-8.2)
[2021-08-25 06:03] LABS: EPI CELLS 14 /uL (0-25.1); HYALINE CASTS 0 /uL (0-3.1); PH,URINE 6.5 (5.0-8.0); URINE APPEARANCE CLEAR; URINE BACTERIA 315 /uL (0-1359); URINE BILIRUBIN NEGATIVE (NEGATIVE); URINE COLOR DK YELLOW; URINE GLUCOSE (UA) NEGATIVE (NEGATIVE); URINE KETONE NEGATIVE (NEGATIVE); URINE LEUK ESTERASE TRACE (NEGATIVE); URINE NITRITE NEGATIVE (NEGATIVE); URINE PROTEIN 1+ (NEGATIVE); URINE WBC 19 /uL (0-25.8)
[2021-08-25 06:18] LABS: HCG,QUALITATIVE URINE Negative
[2021-08-25 07:12] LABS: ANISOCYTOSIS 2+; MACROCYTOSIS 1+; SICKELED CELLS 2+; TARGET CELLS 2+
[2021-08-25 07:28] LABS: RETICULOCYTES 7.67 % (0.5-1.5)
[2021-08-25 07:44] LABS: URINE RBC 38.6 /uL (0-23.9)
== END 2021-08-25 09:25 | disposition home or self-care (01) ==
LOC: JER 00:49
PROC: 3E033GC Introduction of Other Therapeutic Substance into Peripheral Vein, Percutaneous Approach (ICD-10-PCS; principal; 2021-08-25)
PROC: 3E033GC Introduction of Other Therapeutic Substance into Peripheral Vein, Percutaneous Approach (ICD-10-PCS; 2021-08-25)
PROC: 3E033GC Introduction of Other Therapeutic Substance into Peripheral Vein, Percutaneous Approach (ICD-10-PCS; 2021-08-25)
PROC: 3E033GC Introduction of Other Therapeutic Substance into Peripheral Vein, Percutaneous Approach (ICD-10-PCS; 2021-08-25)
PROC: 3E033GC Introduction of Other Therapeutic Substance into Peripheral Vein, Percutaneous Approach (ICD-10-PCS; 2021-08-25)
PROC: 3E033GC Introduction of Other Therapeutic Substance into Peripheral Vein, Percutaneous Approach (ICD-10-PCS; 2021-08-25)
PROC: 3E033GC Introduction of Other Therapeutic Substance into Peripheral Vein, Percutaneous Approach (ICD-10-PCS; 2021-08-25)
PROC: 3E033GC Introduction of Other Therapeutic Substance into Peripheral Vein, Percutaneous Approach (ICD-10-PCS; 2021-08-25)
DX: D57.219 Sickle-cell/Hb-C disease with crisis, unspecified (principal)
CPT/HCPCS: 36415; 80053; 81003; 84703; 85025; 85045; 99284-25; C9803-CS; U0003; U0005

== ENCOUNTER 2021-09-08 16:19 | Observation (INO) | payer OTHER ==
[2021-09-08] MEDS ORDERED: ONDANSETRON 4 MG/2 ML VIAL IVPUSH ONE (17:05)
[2021-09-08] MEDS ORDERED: HYDROmorphone HCL CARPU-JECT 2 MG/1 ML DISP.SYRIN IVPUSH ONE ×2 (17:05→19:26)
[2021-09-08] MEDS ORDERED: HYDROmorphone HCl 2 MG/ML VIAL ONE ×3 (17:47→22:40)
[2021-09-08] MEDS ORDERED: ONDANSETRON 4 MG/2 ML VIAL ONE (17:47)
[2021-09-08 18:56] LABS: ALBUMIN 3.4 g/dl (3.4-5.0); BLOOD UREA NITROGEN 7.1 mg/dL (7-18); CALCIUM 8.5 mg/dL (8.5-10.1)
[2021-09-08 18:59] LABS: CREATININE 0.7 mg/dL (0.55-1.3)
[2021-09-08 19:01] LABS: BILIRUBIN,TOTAL 2.8 mg/dL (0.2-1); TOT PROT 8.1 g/dl (6.4-8.2)
[2021-09-08 19:04] LABS: HEMATOCRIT 25.8 % (32.4-45.2); HEMOGLOBIN 8.9 GM/dL (10.7-15.3); MCH 29.6 pg (25.7-33.7); MCHC 34.4 g/dl (32.0-36.0); MEAN PLT VOLUME 8.2 fl (7.5-11.1); PLATELET COUNT 253 10^3/uL (134-434); WHITE BLOOD COUNT 7.6 K/mm3 (4.0-10.0)
[2021-09-08 20:48] LABS: ANISOCYTOSIS 2+; MACROCYTOSIS 1+; SICKELED CELLS 2+; TARGET CELLS 1+
[2021-09-08] MEDS ORDERED: SODIUM CHLORIDE 1,000 ML IV STA (21:32)
[2021-09-08] MEDS ORDERED: HYDROmorphone HCL CARPU-JECT 2 MG/1 ML DISP.SYRIN IVPUSH PRN ×2 (21:51→23:20)
[2021-09-08] MEDS ORDERED: ACETAMINOPHEN 1000 MG/100 ML BAG IVPB PRN (21:51)
[2021-09-08] MEDS ORDERED: SODIUM CHLORIDE 1,000 ML IV SCH (23:00)
[2021-09-08] MEDS ORDERED: ONDANSETRON 8 MG TABLET (FP) PO PRN (23:31)
[2021-09-08] MEDS ORDERED: PATIENT'S OWN MEDICATION (NON-FORMULARY) (Hydroxyzine Hcl [Hydroxyzine Hcl] 50 MG Tablet) PO PRN (23:31)
[2021-09-08] MEDS ORDERED: oxyCODONE HCL 5 MG TABLET PO PRN ×3 (23:31→23:48)
[2021-09-08] MEDS ORDERED: HYDROmorphone HCl 2 MG/ML VIAL IVPUSH ONE (23:34)
[2021-09-09] MEDS ORDERED: HYDROmorphone HCl 2 MG/ML VIAL ONE (01:05)
[2021-09-09 02:19] VITALS: BMI 32.6
[2021-09-09] MEDS ORDERED: DEXTROSE 5%-NORMAL SALINE 1,000 ML IV SCH (02:45)
[2021-09-09] MEDS: HYDROmorphone HCl 2 MG/ML VIAL IVPB PRN ×3 (05:12→13:19)
[2021-09-09] MEDS: HYDROXYUREA 500 MG CAPSULE PO SCH ×2 (06:36→16:15)
[2021-09-09] MEDS: GABAPENTIN 400 MG CAPSULE PO SCH ×2 (06:36→13:23)
[2021-09-09] MEDS ORDERED: APIXABAN 5 MG TABLET PO SCH (10:00)
[2021-09-09] MEDS ORDERED: PATIENT'S OWN MEDICATION (NON-FORMULARY) (Lidocaine [Lidocaine] 1 EACH Adh..Patch) TP SCH (10:00)
[2021-09-09] MEDS ORDERED: MULTIVITAMINS (DAILY MVI) TABLET (FP) PO SCH (10:00)
[2021-09-09] MEDS ORDERED: LIDOCAINE TP SCH (10:00)
[2021-09-09] MEDS ORDERED: FOLIC ACID 1 MG TABLET (FP) PO SCH (10:00)
[2021-09-09] MEDS ORDERED: DOCUSATE SODIUM 100 MG CAPSULE (FP) PO SCH (10:00)
[2021-09-09] MEDS ORDERED: ENOXAPARIN NA (PORCINE) 40 MG/0.4 ML DISP.SYRIN SQ SCH (10:00)
[2021-09-09] MEDS ORDERED: CHOLECALCIFEROL (VIT D3) 1,000 UNIT (25 MCG) TABLET PO SCH (10:00)
[2021-09-09] MEDS ORDERED: LIDOCAINE 5% TOPICAL PATCH TP SCH (10:00)
[2021-09-09 14:26] VITALS: RESP 20
[2021-09-09] MEDS ORDERED: ONDANSETRON 4 MG TABLET PO ONE ×2 (17:38→17:41)
[2021-09-09 18:40] VITALS: BP 105/57; PULSE 90; TEMP 98.8
[2021-09-09] MEDS ORDERED: LIDOCAINE PATCH REMOVAL MC SCH (22:00)
== END 2021-09-09 20:40 | disposition home or self-care (01) ==
LOC: JER 16:19 → JERBED 21:09 → J5S 09-09 01:42
PROVIDERS: ADMIT Internal Medicine; ATTEND Internal Medicine
PROC: 3E033NZ Introduction of Analgesics, Hypnotics, Sedatives into Peripheral Vein, Percutaneous Approach (ICD-10-PCS; principal; 2021-09-08)
PROC: 3E033GC Introduction of Other Therapeutic Substance into Peripheral Vein, Percutaneous Approach (ICD-10-PCS; 2021-09-08)
PROC: 3E0337Z Introduction of Electrolytic and Water Balance Substance into Peripheral Vein, Percutaneous Approach (ICD-10-PCS; 2021-09-08)
DX: D57.00 Hb-SS disease with crisis, unspecified (principal); K76.6 Portal hypertension; K74.60 Unspecified cirrhosis of liver; I82.509 Chronic embolism and thrombosis of unspecified deep veins of unspecified lower extremity; Z79.01 Long term (current) use of anticoagulants; R94.5 Abnormal results of liver function studies; Z86.16 Personal history of COVID-19; Z88.6 Allergy status to analgesic agent
CPT/HCPCS: 36415; 80053; 85025; 93005; 93010; 96374; 96375; 96376; 99285-25; C9803-CS; G0378; J8999; U0003; U0005

== ENCOUNTER 2021-09-29 16:16 | Emergency (ER) | payer OTHER ==
[2021-09-29 16:31] VITALS: TEMP 97.4; BMI 37.3
[2021-09-29] MEDS ORDERED: ONDANSETRON 4 MG/2 ML VIAL IVPUSH ONE (18:09)
[2021-09-29] MEDS ORDERED: HYDROmorphone HCL CARPU-JECT 2 MG/1 ML DISP.SYRIN IVPUSH ONE ×3 (18:09→21:46)
[2021-09-29] MEDS ORDERED: ONDANSETRON 4 MG/2 ML VIAL ONE (18:43)
[2021-09-29] MEDS ORDERED: HYDROmorphone HCl 2 MG/ML VIAL ONE ×3 (18:43→23:16)
[2021-09-29 18:48] LABS: HEMATOCRIT 24.5 % (32.4-45.2); HEMOGLOBIN 8.8 GM/dL (10.7-15.3); MCH 30.1 pg (25.7-33.7); MCHC 35.7 g/dl (32.0-36.0); MEAN CELL VOLUME 84.3 fl (80-96); MEAN PLT VOLUME 7.1 fl (7.5-11.1); PLATELET COUNT 219 10^3/uL (134-434); RBC 2.91 M/mm3 (3.60-5.2); RDW 22.8 % (11.6-15.6); RETICULOCYTES 7.02 % (0.5-1.5)
[2021-09-29 19:23] LABS: ALBUMIN 3.6 g/dl (3.4-5.0); BLOOD UREA NITROGEN 8.4 mg/dL (7-18)
[2021-09-29 19:26] LABS: CREATININE 0.6 mg/dL (0.55-1.3)
[2021-09-29 19:28] LABS: BILIRUBIN,TOTAL 3.2 mg/dL (0.2-1); TOT PROT 8.5 g/dl (6.4-8.2)
[2021-09-29 19:39] LABS: CALCIUM 8.7 mg/dL (8.5-10.1)
[2021-09-29 20:32] LABS: ANISOCYTOSIS 1+; PLATELET ESTIMATE NORMAL; SICKELED CELLS 1+; TARGET CELLS 1+
[2021-09-29 23:45] VITALS: BP 139/73; PULSE 79; RESP 20
== END 2021-09-30 00:01 | disposition home or self-care (01) ==
LOC: JER 16:16
DX: D57.00 Hb-SS disease with crisis, unspecified (principal)
CPT/HCPCS: 36415; 80053; 85025; 85045; 93970-TC; 99284-25

== ENCOUNTER 2021-10-13 00:47 | Emergency (ER) | payer OTHER ==
[2021-10-13 01:20] VITALS: BP 107/69; PULSE 65; RESP 18; TEMP 98.3; BMI 35.4
[2021-10-13] MEDS ORDERED: HYDROmorphone HCL CARPU-JECT 2 MG/1 ML DISP.SYRIN IVPUSH ONE ×2 (02:43→05:27)
[2021-10-13] MEDS ORDERED: ONDANSETRON 4 MG/2 ML VIAL IVPUSH ONE (02:43)
[2021-10-13] MEDS ORDERED: HYDROmorphone HCl 2 MG/ML VIAL ONE ×2 (03:13→05:39)
[2021-10-13] MEDS ORDERED: ONDANSETRON 4 MG/2 ML VIAL ONE (03:14)
[2021-10-13] MEDS ORDERED: DEXTROSE 5%-NORMAL SALINE 500 ML IV ONE (03:32)
[2021-10-13 03:53] LABS: HEMATOCRIT 24.2 % (32.4-45.2); HEMOGLOBIN 8.6 GM/dL (10.7-15.3); MCH 30.3 pg (25.7-33.7); MCHC 35.5 g/dl (32.0-36.0); MEAN CELL VOLUME 85.4 fl (80-96); MEAN PLT VOLUME 7.7 fl (7.5-11.1); PLATELET COUNT 214 10^3/uL (134-434); RBC 2.83 M/mm3 (3.60-5.2); RDW 21.8 % (11.6-15.6); RETICULOCYTES 6.91 % (0.5-1.5); WHITE BLOOD COUNT 6.6 K/mm3 (4.0-10.0)
[2021-10-13 04:01] LABS: ALBUMIN 3.3 g/dl (3.4-5.0); CALCIUM 8.3 mg/dL (8.5-10.1)
[2021-10-13 04:04] LABS: CREATININE 0.6 mg/dL (0.55-1.3)
[2021-10-13 04:06] LABS: BILIRUBIN,TOTAL 2.1 mg/dL (0.2-1)
[2021-10-13 04:14] LABS: ADD RBC MORPHOLOGY YES
[2021-10-13 07:07] LABS: ANISOCYTOSIS 2+; MACROCYTOSIS 1+; OVALOCYTE 2+; SICKELED CELLS 1+; TARGET CELLS 2+; TEAR DROP CELLS 1+
== END 2021-10-13 07:44 | disposition home or self-care (01) ==
LOC: JER 00:47
PROC: 3E033GC Introduction of Other Therapeutic Substance into Peripheral Vein, Percutaneous Approach (ICD-10-PCS; principal; 2021-10-13)
PROC: 3E033GC Introduction of Other Therapeutic Substance into Peripheral Vein, Percutaneous Approach (ICD-10-PCS; 2021-10-13)
PROC: 3E033GC Introduction of Other Therapeutic Substance into Peripheral Vein, Percutaneous Approach (ICD-10-PCS; 2021-10-13)
PROC: 3E033GC Introduction of Other Therapeutic Substance into Peripheral Vein, Percutaneous Approach (ICD-10-PCS; 2021-10-13)
PROC: 3E033GC Introduction of Other Therapeutic Substance into Peripheral Vein, Percutaneous Approach (ICD-10-PCS; 2021-10-13)
PROC: 3E033NZ Introduction of Analgesics, Hypnotics, Sedatives into Peripheral Vein, Percutaneous Approach (ICD-10-PCS; 2021-10-13)
PROC: 3E033NZ Introduction of Analgesics, Hypnotics, Sedatives into Peripheral Vein, Percutaneous Approach (ICD-10-PCS; 2021-10-13)
PROC: 3E033GC Introduction of Other Therapeutic Substance into Peripheral Vein, Percutaneous Approach (ICD-10-PCS; 2021-10-13)
DX: D57.219 Sickle-cell/Hb-C disease with crisis, unspecified (principal)
CPT/HCPCS: 36415; 80053; 85025; 85045; 99284-25

== ENCOUNTER 2021-11-04 22:47 | Emergency (ER) | payer SELFPAY ==
[2021-11-04 22:53] VITALS: BP 108/62; PULSE 69; RESP 18; TEMP 98; BMI 35.0
[2021-11-04] MEDS ORDERED: HYDROmorphone HCL CARPU-JECT 2 MG/1 ML DISP.SYRIN IVPUSH ONE (23:13)
[2021-11-04] MEDS ORDERED: HYDROmorphone HCl 2 MG/ML VIAL ONE (23:21)
[2021-11-04 23:55] LABS: HEMATOCRIT 25.1 % (32.4-45.2); HEMOGLOBIN 8.9 GM/dL (10.7-15.3); MCH 30.8 pg (25.7-33.7); MCHC 35.3 g/dl (32.0-36.0); MEAN CELL VOLUME 87.2 fl (80-96); MEAN PLT VOLUME 7.7 fl (7.5-11.1); PLATELET COUNT 199 10^3/uL (134-434); RBC 2.88 M/mm3 (3.60-5.2); RETICULOCYTES 9.69 % (0.5-1.5)
[2021-11-05 01:09] LABS: ADD RBC MORPHOLOGY YES
[2021-11-05 01:12] LABS: ALBUMIN 3.3 g/dl (3.4-5.0); BILIRUBIN,TOTAL 2.8 mg/dL (0.2-1); BLOOD UREA NITROGEN 6.6 mg/dL (7-18); CALCIUM 8.4 mg/dL (8.5-10.1); CREATININE 0.6 mg/dL (0.55-1.3); TOT PROT 8.1 g/dl (6.4-8.2)
[2021-11-05] MEDS ORDERED: HYDROmorphone HCL CARPU-JECT 2 MG/1 ML DISP.SYRIN IVPUSH ONE (01:49)
[2021-11-05] MEDS ORDERED: HYDROmorphone HCl 2 MG/ML VIAL ONE (01:53)
[2021-11-05 02:39] LABS: ANISOCYTOSIS 2+; MACROCYTOSIS 0; SICKELED CELLS 2+; TARGET CELLS 1+
== END 2021-11-05 02:51 | disposition home or self-care (01) ==
LOC: JER 22:47
PROC: 3E033GC Introduction of Other Therapeutic Substance into Peripheral Vein, Percutaneous Approach (ICD-10-PCS; principal; 2021-11-04)
DX: D57.00 Hb-SS disease with crisis, unspecified (principal)
CPT/HCPCS: 36415; 71046-TC-FY; 80053; 84703; 85025; 85045; 93005; 93010; 99285-25

== ENCOUNTER 2021-11-11 14:05 | Observation (INO) | payer OTHER ==
[2021-11-11 14:17] VITALS: BMI 35.0
[2021-11-11] MEDS ORDERED: diphenhydrAMINE HCL 50 MG CAPSULE PO ONE ×2 (15:28→18:07)
[2021-11-11] MEDS ORDERED: HYDROmorphone HCL CARPU-JECT 2 MG/1 ML DISP.SYRIN IVPUSH ONE ×2 (15:29→18:07)
[2021-11-11] MEDS ORDERED: DEXTROSE 5%-LACTATED RINGERS 1,000 ML IV SCH ×3 (15:30→22:15)
[2021-11-11] MEDS ORDERED: diphenhydrAMINE HCL 25 MG CAPSULE (FP) PO ONE ×2 (15:50→18:13)
[2021-11-11] MEDS ORDERED: HYDROmorphone HCl 2 MG/ML VIAL ONE ×3 (15:51→22:06)
[2021-11-11 17:53] LABS: ALBUMIN 3.4 g/dl (3.4-5.0); BLOOD UREA NITROGEN 10.1 mg/dL (7-18); CALCIUM 8.9 mg/dL (8.5-10.1)
[2021-11-11 17:57] LABS: CREATININE 0.6 mg/dL (0.55-1.3)
[2021-11-11 17:59] LABS: BILIRUBIN,TOTAL 2.8 mg/dL (0.2-1); TOT PROT 8.2 g/dl (6.4-8.2)
[2021-11-11 18:03] LABS: BASO % 0.1 % (0-2.0); EOS % 65.4 % (0-4.5); HEMATOCRIT 25.4 % (32.4-45.2); HEMOGLOBIN 8.4 GM/dL (10.7-15.3); LYMPH % 3.6 % (8-40); MCH 29.2 pg (25.7-33.7); MCHC 33.2 g/dl (32.0-36.0); MONO % 1.9 % (3.8-10.2); PLATELET COUNT 222 10^3/uL (134-434); RBC 2.89 M/mm3 (3.60-5.2); RDW 21.5 % (11.6-15.6); RETICULOCYTES 6.95 % (0.5-1.5); WHITE BLOOD COUNT 6.7 K/mm3 (4.0-10.0)
[2021-11-11 18:49] LABS: ANISOCYTOSIS 2+; MACROCYTOSIS 1+; OVALOCYTE 1+; TARGET CELLS 2+; TOXIC GRANULATION 1+
[2021-11-11] MEDS ORDERED: HYDROmorphone HCl 2 MG/ML VIAL IVPUSH PRN (22:15)
[2021-11-11] MEDS ORDERED: APIXABAN 5 MG TABLET PO SCH (23:15)
[2021-11-12] MEDS ORDERED: HYDROmorphone HCl 2 MG/ML VIAL IVPB PRN (01:59)
[2021-11-12 02:52] VITALS: BP 98/50; PULSE 86; RESP 20; TEMP 97.4
[2021-11-12] MEDS ORDERED: diphenhydrAMINE HCL 25 MG CAPSULE (FP) PO PRN ×2 (03:00→06:00)
[2021-11-12] MEDS ORDERED: GABAPENTIN 400 MG CAPSULE PO SCH (06:00)
[2021-11-12] MEDS ORDERED: FOLIC ACID 1 MG TABLET (FP) PO SCH (10:00)
[2021-11-12] MEDS ORDERED: MULTIVITAMINS (DAILY MVI) TABLET (FP) PO SCH (10:00)
[2021-11-12] MEDS ORDERED: CHOLECALCIFEROL (VIT D3) 1,000 UNIT (25 MCG) TABLET PO SCH (10:00)
== END 2021-11-12 04:53 | disposition left against medical advice (07) ==
LOC: JER 14:05 → JERBED 18:38 → INTOOBSV 18:38
PROVIDERS: ADMIT Internal Medicine; ATTEND Internal Medicine
PROC: 3E033GC Introduction of Other Therapeutic Substance into Peripheral Vein, Percutaneous Approach (ICD-10-PCS; principal; 2021-11-11)
PROC: 3E033NZ Introduction of Analgesics, Hypnotics, Sedatives into Peripheral Vein, Percutaneous Approach (ICD-10-PCS; 2021-11-11)
DX: M54.2 Cervicalgia (principal); M54.9 Dorsalgia, unspecified; K76.6 Portal hypertension; D57.1 Sickle-cell disease without crisis; K74.60 Unspecified cirrhosis of liver; I85.00 Esophageal varices without bleeding; Z86.718 Personal history of other venous thrombosis and embolism; Z79.01 Long term (current) use of anticoagulants
CPT/HCPCS: 0241U-QW; 36415; 71045-TC-FY; 80053; 83615; 84484; 85025; 85045; 87040; 93005; 93010; 93970-TC; 96365; 96366; 96375; 96376; 99285-25; G0378

== ENCOUNTER 2021-12-13 14:15 | Emergency (ER) | payer OTHER ==
[2021-12-13 14:47] VITALS: PULSE 78; TEMP 98.1; BMI 35.0
[2021-12-13] MEDS ORDERED: HYDROmorphone HCL CARPU-JECT 2 MG/1 ML DISP.SYRIN IVPUSH ONE ×3 (16:36→21:19)
[2021-12-13] MEDS ORDERED: SODIUM CHLORIDE 0.9% 500 ML INFUS.BAG IV ONE ×2 (16:56→21:19)
[2021-12-13] MEDS ORDERED: HYDROmorphone HCl 2 MG/ML VIAL ONE ×3 (18:13→21:27)
[2021-12-13 18:56] LABS: HCG,QUALITATIVE URINE Negative
[2021-12-13 19:00] LABS: EPI CELLS 32 /uL (0-25.1); HYALINE CASTS 0 /uL (0-3.1); PH,URINE 7.5 (5.0-8.0); URINE APPEARANCE CLEAR; URINE BACTERIA 1515 /uL (0-1359); URINE BILIRUBIN NEGATIVE (NEGATIVE); URINE COLOR YELLOW; URINE GLUCOSE (UA) NEGATIVE (NEGATIVE); URINE KETONE NEGATIVE (NEGATIVE); URINE LEUK ESTERASE NEGATIVE (NEGATIVE); URINE NITRITE NEGATIVE (NEGATIVE); URINE PROTEIN NEGATIVE (NEGATIVE); URINE RBC 37 /uL (0-23.9); URINE WBC 17 /uL (0-25.8)
[2021-12-13 19:01] LABS: HEMATOCRIT 25.5 % (32.4-45.2); MCH 30.3 pg (25.7-33.7); MCHC 35.5 g/dl (32.0-36.0); MEAN CELL VOLUME 85.3 fl (80-96); MEAN PLT VOLUME 7.9 fl (7.5-11.1); PLATELET COUNT 217 10^3/uL (134-434); RBC 2.99 M/mm3 (3.60-5.2); RDW 23.1 % (11.6-15.6); RETICULOCYTES 7.86 % (0.5-1.5); WHITE BLOOD COUNT 8.7 K/mm3 (4.0-10.0)
[2021-12-13 19:12] LABS: CALCIUM 8.9 mg/dL (8.5-10.1)
[2021-12-13 19:14] LABS: ALBUMIN 3.8 g/dl (3.4-5.0); BLOOD UREA NITROGEN 5.6 mg/dL (7-18)
[2021-12-13 19:17] LABS: CREATININE 0.6 mg/dL (0.55-1.3)
[2021-12-13 19:18] LABS: BILIRUBIN,TOTAL 3.4 mg/dL (0.2-1); TOT PROT 8.6 g/dl (6.4-8.2)
[2021-12-13 20:19] LABS: ANISOCYTOSIS 3+; MACROCYTOSIS 0; SICKELED CELLS 2+; TARGET CELLS 1+
[2021-12-14 00:35] VITALS: BP 114/62; RESP 20
== END 2021-12-13 23:45 | disposition home or self-care (01) ==
LOC: JER 14:15
PROC: 3E033GC Introduction of Other Therapeutic Substance into Peripheral Vein, Percutaneous Approach (ICD-10-PCS; principal; 2021-12-13)
PROC: 3E033GC Introduction of Other Therapeutic Substance into Peripheral Vein, Percutaneous Approach (ICD-10-PCS; 2021-12-13)
PROC: 3E033GC Introduction of Other Therapeutic Substance into Peripheral Vein, Percutaneous Approach (ICD-10-PCS; 2021-12-13)
PROC: 3E033NZ Introduction of Analgesics, Hypnotics, Sedatives into Peripheral Vein, Percutaneous Approach (ICD-10-PCS; 2021-12-13)
PROC: 3E033NZ Introduction of Analgesics, Hypnotics, Sedatives into Peripheral Vein, Percutaneous Approach (ICD-10-PCS; 2021-12-13)
PROC: 3E033NZ Introduction of Analgesics, Hypnotics, Sedatives into Peripheral Vein, Percutaneous Approach (ICD-10-PCS; 2021-12-13)
DX: D57.219 Sickle-cell/Hb-C disease with crisis, unspecified (principal)
CPT/HCPCS: 36415; 80053; 81003; 84703; 85025; 85045; 99284-25

== ENCOUNTER 2022-01-15 22:34 | Emergency (ER) | payer OTHER ==
[2022-01-15 23:04] VITALS: BP 112/79; PULSE 93; RESP 18; TEMP 98.4; BMI 34.5
[2022-01-16] MEDS ORDERED: ONDANSETRON 4 MG/2 ML VIAL IVPUSH ONE ×2 (00:03→01:41)
[2022-01-16] MEDS ORDERED: HYDROmorphone HCL CARPU-JECT 2 MG/1 ML DISP.SYRIN IVPUSH ONE ×2 (00:05→01:41)
[2022-01-16] MEDS ORDERED: HYDROmorphone HCl 2 MG/ML VIAL ONE ×2 (00:27→01:44)
[2022-01-16] MEDS ORDERED: ONDANSETRON 4 MG/2 ML VIAL ONE ×2 (00:28→01:44)
== END 2022-01-16 02:57 | disposition home or self-care (01) ==
LOC: JER 22:34
PROC: 3E033GC Introduction of Other Therapeutic Substance into Peripheral Vein, Percutaneous Approach (ICD-10-PCS; principal; 2022-01-15)
DX: R07.9 Chest pain, unspecified (principal); M54.89 Other dorsalgia
CPT/HCPCS: 0241U-QW; 71045-TC-FY; 93005; 93010; 99285-25

== ENCOUNTER 2022-02-23 04:09 | Emergency (ER) | payer OTHER ==
[2022-02-23 04:43] VITALS: RESP 16; TEMP 98.6; BMI 33.6
[2022-02-23] MEDS ORDERED: BUPRENORPHINE/NALOXONE 4 MG/1 MG FILM PACKET SL ONE (05:00)
[2022-02-23] MEDS ORDERED: BUPRENORPHINE/NALOXONE 2 MG/0.5 MG FILM PACKET ONE (05:10)
[2022-02-23] MEDS ORDERED: HYDROmorphone HCL CARPU-JECT 2 MG/1 ML DISP.SYRIN IVPUSH ONE (05:34)
[2022-02-23] MEDS ORDERED: SODIUM CHLORIDE 0.9% 500 ML INFUS.BAG IV ONE (05:39)
[2022-02-23] MEDS ORDERED: HYDROmorphone HCl 2 MG/ML VIAL ONE ×2 (05:40→07:38)
[2022-02-23] MEDS ORDERED: DEXTROSE 5%-0.45% SALINE 1,000 ML IV SCH (05:45)
[2022-02-23] MEDS ORDERED: HYDROmorphone HCL CARPU-JECT 2 MG/1 ML DISP.SYRIN IVPB ONE (07:12)
[2022-02-23 07:51] VITALS: BP 109/54; PULSE 59
== END 2022-02-23 09:08 | disposition home or self-care (01) ==
LOC: JER 04:09
PROC: 3E033GC Introduction of Other Therapeutic Substance into Peripheral Vein, Percutaneous Approach (ICD-10-PCS; principal; 2022-02-23)
DX: D57.00 Hb-SS disease with crisis, unspecified (principal)
CPT/HCPCS: 99284-25

== ENCOUNTER 2022-03-23 23:12 | Emergency (ER) | payer OTHER ==
[2022-03-23 23:16] VITALS: BP 117/64; PULSE 79; RESP 18; TEMP 98.1; BMI 32.8
[2022-03-24] MEDS ORDERED: SODIUM CHLORIDE 0.9% 500 ML INFUS.BAG IV ONE (00:07)
[2022-03-24] MEDS ORDERED: HYDROmorphone HCL CARPU-JECT 2 MG/1 ML DISP.SYRIN IVPUSH ONE ×2 (00:09→03:15)
[2022-03-24] MEDS ORDERED: HYDROmorphone HCl 2 MG/ML VIAL ONE ×2 (00:17→03:16)
[2022-03-24] MEDS ORDERED: ONDANSETRON 4 MG/2 ML VIAL IVPB ONE (01:05)
[2022-03-24] MEDS ORDERED: ONDANSETRON 4 MG/2 ML VIAL ONE (01:15)
== END 2022-03-24 06:42 | disposition home or self-care (01) ==
LOC: JER 23:12
PROC: 3E033GC Introduction of Other Therapeutic Substance into Peripheral Vein, Percutaneous Approach (ICD-10-PCS; principal; 2022-03-23)
DX: D57.00 Hb-SS disease with crisis, unspecified (principal)
CPT/HCPCS: 93005; 93010; 99284-25

== ENCOUNTER 2022-03-31 10:05 | Inpatient (IN) | payer OTHER ==
[2022-03-31] MEDS ORDERED: HYDROmorphone HCL CARPU-JECT 2 MG/1 ML DISP.SYRIN IVPB ONE ×2 (11:24→16:38)
[2022-03-31] MEDS ORDERED: HYDROmorphone HCl 2 MG/ML VIAL ONE ×3 (12:11→19:35)
[2022-03-31 12:41] LABS: HEMATOCRIT 23.6 % (32.4-45.2); HEMOGLOBIN 8.3 GM/dL (10.7-15.3); MCH 30.1 pg (25.7-33.7); MEAN CELL VOLUME 85.9 fl (80-96); MEAN PLT VOLUME 8.2 fl (7.5-11.1); PLATELET COUNT 132 10^3/uL (134-434); RBC 2.75 M/mm3 (3.60-5.2); RDW 21.9 % (11.6-15.6); WHITE BLOOD COUNT 28.6 K/mm3 (4.0-10.0)
[2022-03-31 13:04] LABS: CALCIUM 8.7 mg/dL (8.5-10.1)
[2022-03-31 13:05] LABS: BLOOD UREA NITROGEN 9.1 mg/dL (7-18)
[2022-03-31 13:06] LABS: ALBUMIN 3.3 g/dl (3.4-5.0); RETICULOCYTES 6.07 % (0.5-1.5)
[2022-03-31 13:08] LABS: CREATININE 0.6 mg/dL (0.55-1.3)
[2022-03-31 13:09] LABS: BILIRUBIN,TOTAL 4.7 mg/dL (0.2-1); TOT PROT 8.4 g/dl (6.4-8.2)
[2022-03-31] MEDS ORDERED: SODIUM CHLORIDE 1,000 ML IV STA (13:31)
[2022-03-31 14:00] LABS: ANISOCYTOSIS 2+; MACROCYTOSIS 1+; SICKELED CELLS 3+; TARGET CELLS 2+
[2022-03-31] MEDS ORDERED: ACETAMINOPHEN 1000 MG/100 ML BAG IVPB ONE (14:29)
[2022-03-31] MEDS ORDERED: ACETAMINOPHEN INJECTION 100 ML IVPB ONE (14:29)
[2022-03-31] MEDS ORDERED: VANCOMYCIN 1,000 MG in DEXTROSE 5%-WATER - 250 ML IVPB ONE (14:35)
[2022-03-31] MEDS ORDERED: CEFEPIME HCL/D5W 1 GM/50 ML BAG IVPB ONE (14:35)
[2022-03-31] MEDS ORDERED: VANCOMYCIN/WATER FOR INJ (PEG) 1,000 MG/200 ML BAG IVPB ONE (15:07)
[2022-03-31] MEDS ORDERED: CEFEPIME 1 GM/100 ML BAG IVPB ONE (15:08)
[2022-03-31] MEDS ORDERED: DEXTROSE 5%-0.45% SALINE 1,000 ML IV SCH (16:15)
[2022-03-31] MEDS ORDERED: HYDROmorphone HCL CARPU-JECT 2 MG/1 ML DISP.SYRIN IVPUSH ONE (19:55)
[2022-03-31] MEDS ORDERED: SODIUM CHLORIDE 0.9% 500 ML INFUS.BAG IV ONE (20:10)
[2022-03-31] MEDS: DEXTROSE 5%-0.45% SALINE 1,000 ML IV SCH (20:50)
[2022-03-31 21:41] LABS: EPI CELLS 7 /uL (0-25.1); HYALINE CASTS 0 /uL (0-3.1); URINE APPEARANCE CLEAR; URINE BACTERIA 61 /uL (0-1359); URINE BILIRUBIN NEGATIVE (NEGATIVE); URINE COLOR YELLOW; URINE GLUCOSE (UA) NEGATIVE (NEGATIVE); URINE KETONE NEGATIVE (NEGATIVE); URINE LEUK ESTERASE NEGATIVE (NEGATIVE); URINE NITRITE NEGATIVE (NEGATIVE); URINE PROTEIN 1+ (NEGATIVE); URINE WBC 6 /uL (0-25.8)
[2022-03-31] MEDS ORDERED: hydrOXYzine PAMOATE 50 MG CAPSULE (FP) PO PRN (23:03)
[2022-03-31] MEDS ORDERED: AZITHROMYCIN IVPB 500 MG in DEXTROSE 5%-WATER - 250 ML IVPB ONE (23:04)
[2022-03-31] MEDS ORDERED: ONDANSETRON 8 MG TABLET (FP) PO PRN (23:04)
[2022-03-31] MEDS ORDERED: hydrOXYzine PAMOATE 50 MG CAPSULE (FP) PO SCH (23:15)
[2022-04-01] MEDS: MUPIROCIN 2% TOPICAL OINTMENT FOR DECOLONIZATION NS SCH ×3 (00:02→21:09)
[2022-04-01] MEDS: HYDROXYUREA 500 MG CAPSULE PO SCH ×2 (00:06→06:50)
[2022-04-01] MEDS: GABAPENTIN 400 MG CAPSULE PO SCH ×4 (00:06→21:09)
[2022-04-01] MEDS ORDERED: AZITHROMYCIN IVPB 500 MG/250 ML BAG IVPB ONE (00:15)
[2022-04-01] MEDS: HYDROmorphone HCl 2 MG/ML VIAL IVPUSH PRN ×8 (00:45→23:22)
[2022-04-01 03:17] LABS: BASO % 0.3 % (0-2.0); HEMATOCRIT 23.8 % (32.4-45.2); HEMOGLOBIN 8.3 GM/dL (10.7-15.3); LYMPH % 1.9 % (8-40); MCH 30.1 pg (25.7-33.7); MCHC 34.7 g/dl (32.0-36.0); MEAN CELL VOLUME 86.8 fl (80-96); MONO % 9.1 % (3.8-10.2); NEUT % 88.7 % (42.8-82.8); PLATELET COUNT 105 10^3/uL (134-434); RBC 2.75 M/mm3 (3.60-5.2); RDW 20.9 % (11.6-15.6); WHITE BLOOD COUNT 18.1 K/mm3 (4.0-10.0)
[2022-04-01 03:39] LABS: ALBUMIN 2.8 g/dl (3.4-5.0); BLOOD UREA NITROGEN 7.7 mg/dL (7-18); CALCIUM 7.9 mg/dL (8.5-10.1); MAGNESIUM 1.8 mg/dL (1.8-2.4)
[2022-04-01 03:42] LABS: CREATININE 0.5 mg/dL (0.55-1.3); PHOSPHOROUS 2.4 mg/dL (2.5-4.9)
[2022-04-01 03:44] LABS: BILIRUBIN,TOTAL 3.9 mg/dL (0.2-1); TOT PROT 7.2 g/dl (6.4-8.2)
[2022-04-01 03:47] LABS: INR 1.45 (0.83-1.09); PROTHROMBIN TIME (PATIENT) 16.8 SEC (9.7-13.0)
[2022-04-01 04:33] LABS: URINE RBC 64.6 /uL (0-23.9)
[2022-04-01] MEDS: DEXTROSE 5%-0.45% SALINE 1,000 ML IV SCH ×3 (07:30→21:08)
[2022-04-01] MEDS: CEFTRIAXONE 1 GM in DEXTROSE 5%-WATER - 50 ML IVPB SCH (09:04)
[2022-04-01] MEDS: AZITHROMYCIN IVPB 500 MG/250 ML BAG IVPB SCH (09:04)
[2022-04-01] MEDS: FOLIC ACID 1 MG TABLET (FP) PO SCH (09:05)
[2022-04-01] MEDS: APIXABAN 5 MG TABLET PO SCH ×2 (09:05→21:09)
[2022-04-01 10:27] LABS: HEMATOCRIT 27.1 % (32.4-45.2); HEMOGLOBIN 9.4 GM/dL (10.7-15.3); MCH 30.2 pg (25.7-33.7); MCHC 34.7 g/dl (32.0-36.0); MEAN CELL VOLUME 87.2 fl (80-96); MEAN PLT VOLUME 8.6 fl (7.5-11.1); PLATELET COUNT 114 10^3/uL (134-434); RDW 19.5 % (11.6-15.6); WHITE BLOOD COUNT 16.7 K/mm3 (4.0-10.0)
[2022-04-01 11:30] VITALS: BMI 32.9
[2022-04-01 14:39] LABS: SICKLE CELL SCREEN POSITIVE (NEGATIVE)
[2022-04-01] MEDS ORDERED: AZITHROMYCIN IVPB 500 MG/250 ML BAG IVPB STA (17:54)
[2022-04-01] MEDS ORDERED: PANTOPRAZOLE SODIUM 40 MG VIAL IVPUSH STA (18:00)
[2022-04-01] MEDS ORDERED: CHLORHEXIDINE GLUCONATE 4% CLEANSER FOR DECOLONIZATION TP SCH (22:00)
[2022-04-02] MEDS: DEXTROSE 5%-0.45% SALINE 1,000 ML IV SCH ×3 (00:43→17:55)
[2022-04-02] MEDS: HYDROmorphone HCl 2 MG/ML VIAL IVPUSH PRN ×8 (02:38→23:59)
[2022-04-02] MEDS ORDERED: VANCOMYCIN 1 GM/200 ML PREMIX BAG (RESTRICTED TO ID ONLY) IVPB ONE (03:00)
[2022-04-02] MEDS: GABAPENTIN 400 MG CAPSULE PO SCH ×4 (05:13→21:16)
[2022-04-02] MEDS: ACETAMINOPHEN 325 MG TABLET (FP) PO PRN ×2 (05:50→14:15)
[2022-04-02] MEDS: FOLIC ACID 1 MG TABLET (FP) PO SCH (09:04)
[2022-04-02] MEDS: APIXABAN 5 MG TABLET PO SCH ×2 (09:04→21:03)
[2022-04-02] MEDS: CEFTRIAXONE 1 GM in DEXTROSE 5%-WATER - 50 ML IVPB SCH (09:04)
[2022-04-02] MEDS: AZITHROMYCIN IVPB 500 MG/250 ML BAG IVPB SCH (09:05)
[2022-04-02] MEDS: MUPIROCIN 2% TOPICAL OINTMENT FOR DECOLONIZATION NS SCH (09:06)
[2022-04-02] MEDS ORDERED: INSULIN (NOVOLOG) ASPART 100 UNITS/ML 10ML VIAL ONE (10:00)
[2022-04-02] MEDS ORDERED: AZITHROMYCIN IVPB 500 MG/250 ML BAG IVPB SCH (10:00)
[2022-04-02] MEDS ORDERED: PANTOPRAZOLE SODIUM 40 MG VIAL IVPUSH SCH (10:00)
[2022-04-02 12:44] LABS: BASO % 0.1 % (0-2.0); EOS % 0.1 % (0-4.5); HEMATOCRIT 28.7 % (32.4-45.2); HEMOGLOBIN 9.7 GM/dL (10.7-15.3); LYMPH % 2.1 % (8-40); MCH 29.4 pg (25.7-33.7); MCHC 33.8 g/dl (32.0-36.0); MEAN CELL VOLUME 86.8 fl (80-96); MONO % 11.6 % (3.8-10.2); NEUT % 86.1 % (42.8-82.8); PLATELET COUNT 134 10^3/uL (134-434); RBC 3.31 M/mm3 (3.60-5.2); RDW 19.3 % (11.6-15.6)
[2022-04-02 13:06] LABS: CALCIUM 8.2 mg/dL (8.5-10.1)
[2022-04-02 13:07] LABS: ALBUMIN 2.7 g/dl (3.4-5.0); BLOOD UREA NITROGEN 4.6 mg/dL (7-18)
[2022-04-02 13:10] LABS: CREATININE 0.5 mg/dL (0.55-1.3)
[2022-04-02 13:11] LABS: TOT PROT 7.1 g/dl (6.4-8.2)
[2022-04-02 13:12] LABS: BILIRUBIN,TOTAL 4.2 mg/dL (0.2-1)
[2022-04-02] MEDS: KCL 10 MEQ IVPB 10 MEQ/100 ML INFUS.BAG IVPB SCH ×2 (14:05→15:17)
[2022-04-02] MEDS ORDERED: ONDANSETRON 8 MG TABLET (FP) PO PRN (14:21)
[2022-04-02] MEDS ORDERED: hydrOXYzine PAMOATE 50 MG CAPSULE (FP) PO PRN (14:21)
[2022-04-02] MEDS ORDERED: ACETAMINOPHEN 325 MG TABLET (FP) PO PRN (14:21)
[2022-04-02] MEDS ORDERED: ONDANSETRON 4 MG TABLET PO PRN (14:27)
[2022-04-02] MEDS: VANCOMYCIN 1 GM/200 ML PREMIX BAG (RESTRICTED TO ID ONLY) IVPB SCH (14:40)
[2022-04-02] MEDS ORDERED: VANCOMYCIN/WATER FOR INJ (PEG) 1,000 MG/200 ML BAG IVPB SCH (15:00)
[2022-04-02] MEDS ORDERED: VANCOMYCIN 1 GM in D5W (PRE-DOCKED) 1,000 MG/250 ML IVPB SCH (15:00)
[2022-04-03] MEDS: DEXTROSE 5%-0.45% SALINE 1,000 ML IV SCH ×2 (01:58→16:30)
[2022-04-03] MEDS: VANCOMYCIN 1 GM/200 ML PREMIX BAG (RESTRICTED TO ID ONLY) IVPB SCH ×2 (01:59→14:57)
[2022-04-03] MEDS ORDERED: VANCOMYCIN 1 GM in D5W (PRE-DOCKED) 1,000 MG/250 ML IVPB SCH (03:00)
[2022-04-03] MEDS: HYDROmorphone HCl 2 MG/ML VIAL IVPUSH PRN ×7 (03:03→20:55)
[2022-04-03] MEDS: GABAPENTIN 400 MG CAPSULE PO SCH ×4 (06:07→21:51)
[2022-04-03] MEDS: APIXABAN 5 MG TABLET PO SCH ×3 (09:47→21:49)
[2022-04-03] MEDS ORDERED: FOLIC ACID 1 MG TABLET (FP) PO SCH (10:00)
[2022-04-03] MEDS ORDERED: CEFTRIAXONE 2 GM in DEXTROSE 5%-WATER 100 ML IVPB SCH (10:00)
[2022-04-03] MEDS ORDERED: PANTOPRAZOLE SODIUM 40 MG VIAL IVPUSH SCH (10:00)
[2022-04-03] MEDS ORDERED: AZITHROMYCIN IVPB 500 MG/250 ML BAG IVPB SCH ×2 (10:00)
[2022-04-03] MEDS: KCL 10 MEQ IVPB 10 MEQ/100 ML INFUS.BAG IVPB SCH ×3 (11:54→13:36)
[2022-04-04] MEDS: HYDROmorphone HCl 2 MG/ML VIAL IVPUSH PRN ×8 (00:10→21:15)
[2022-04-04] MEDS: DEXTROSE 5%-0.45% SALINE 1,000 ML IV SCH ×3 (01:00→19:24)
[2022-04-04] MEDS ORDERED: hydrOXYzine PAMOATE 50 MG CAPSULE (FP) PO PRN (01:45)
[2022-04-04] MEDS ORDERED: ONDANSETRON 4 MG TABLET PO PRN (01:45)
[2022-04-04] MEDS: GABAPENTIN 400 MG CAPSULE PO SCH ×2 (06:18→14:46)
[2022-04-04] MEDS: CEFTRIAXONE 2 GM in DEXTROSE 5%-WATER 100 ML IVPB SCH (09:13)
[2022-04-04] MEDS: PANTOPRAZOLE SODIUM 40 MG VIAL IVPUSH SCH (09:14)
[2022-04-04] MEDS: FOLIC ACID 1 MG TABLET (FP) PO SCH (09:15)
[2022-04-04] MEDS: APIXABAN 5 MG TABLET PO SCH (09:15)
[2022-04-04] MEDS: AZITHROMYCIN IVPB 500 MG/250 ML BAG IVPB SCH (09:17)
[2022-04-04] MEDS: MELATONIN 5 MG TABLETS PO PRN ×2 (15:20→21:20)
[2022-04-05] MEDS: HYDROmorphone HCl 2 MG/ML VIAL IVPUSH PRN ×6 (00:14→15:37)
[2022-04-05] MEDS: DEXTROSE 5%-0.45% SALINE 1,000 ML IV SCH (02:52)
[2022-04-05] MEDS: GABAPENTIN 400 MG CAPSULE PO SCH ×3 (06:07→22:40)
[2022-04-05] MEDS: PANTOPRAZOLE SODIUM 40 MG VIAL IVPUSH SCH (09:22)
[2022-04-05] MEDS: CEFTRIAXONE 2 GM in DEXTROSE 5%-WATER 100 ML IVPB SCH (09:22)
[2022-04-05] MEDS: FOLIC ACID 1 MG TABLET (FP) PO SCH (09:23)
[2022-04-05] MEDS: APIXABAN 5 MG TABLET PO SCH ×2 (09:23→22:40)
[2022-04-05] MEDS: AZITHROMYCIN IVPB 500 MG/250 ML BAG IVPB SCH (09:23)
[2022-04-05] MEDS ORDERED: PORTA CATH FLUSH 10 ML IVPUSH PRN (12:59)
[2022-04-05] MEDS ORDERED: SODIUM CHLORIDE 1,000 ML IV SCH (19:00)
[2022-04-05] MEDS: HYDROmorphone HCl 2 MG/ML VIAL IVPB PRN ×2 (19:06→22:19)
[2022-04-05] MEDS ORDERED: diphenhydrAMINE HCL 25 MG CAPSULE (FP) PO ONE (21:42)
[2022-04-05] MEDS: MELATONIN 5 MG TABLETS PO PRN (23:20)
[2022-04-05] MEDS: ACETAMINOPHEN 325 MG TABLET (FP) PO PRN (23:20)
[2022-04-05 23:39] LABS: HEMATOCRIT 26.2 % (32.4-45.2); HEMOGLOBIN 8.8 GM/dL (10.7-15.3); MCH 29.4 pg (25.7-33.7); MCHC 33.7 g/dl (32.0-36.0); MEAN CELL VOLUME 87.2 fl (80-96); MEAN PLT VOLUME 9.4 fl (7.5-11.1); PLATELET COUNT 254 10^3/uL (134-434); RBC 3.01 M/mm3 (3.60-5.2); RDW 17.8 % (11.6-15.6); RETICULOCYTES 4.43 % (0.5-1.5); WHITE BLOOD COUNT 11.1 K/mm3 (4.0-10.0)
[2022-04-05 23:57] LABS: CALCIUM 8.2 mg/dL (8.5-10.1)
[2022-04-05 23:58] LABS: ALBUMIN 2.4 g/dl (3.4-5.0); BLOOD UREA NITROGEN 4.6 mg/dL (7-18); MAGNESIUM 1.7 mg/dL (1.8-2.4)
[2022-04-06 00:01] LABS: CREATININE 0.4 mg/dL (0.55-1.3); PHOSPHOROUS 3.8 mg/dL (2.5-4.9)
[2022-04-06 00:02] LABS: BILIRUBIN,TOTAL 2.4 mg/dL (0.2-1)
[2022-04-06] MEDS: HYDROmorphone HCl 2 MG/ML VIAL IVPB PRN ×8 (01:30→23:32)
[2022-04-06 02:00] LABS: ANISOCYTOSIS 1+; HELMET CELLS 1+; MACROCYTOSIS 0; TEAR DROP CELLS 1+
[2022-04-06] MEDS ORDERED: MAGNESIUM SULF 50% (8.12 MEQ/2 ML-1 GM VIAL) IVPB ONE (06:47)
[2022-04-06] MEDS ORDERED: POTASSIUM CHLORIDE ORAL LIQUID 20 MEQ/15 ML PO ONE (06:50)
[2022-04-06] MEDS: GABAPENTIN 400 MG CAPSULE PO SCH ×3 (08:53→21:26)
[2022-04-06] MEDS: CEFTRIAXONE 2 GM in DEXTROSE 5%-WATER 100 ML IVPB SCH (09:04)
[2022-04-06] MEDS: FOLIC ACID 1 MG TABLET (FP) PO SCH (09:04)
[2022-04-06] MEDS: APIXABAN 5 MG TABLET PO SCH ×2 (09:04→21:25)
[2022-04-06] MEDS: PANTOPRAZOLE SODIUM 40 MG VIAL IVPUSH SCH (09:04)
[2022-04-06] MEDS ORDERED: SODIUM CHLORIDE 1,000 ML IV SCH (13:15)
[2022-04-06] MEDS: diphenhydrAMINE HCL 25 MG CAPSULE (FP) PO ONE ×2 (13:50→13:56)
[2022-04-06 16:08] LABS: HGB SOLUBILITY Positive (Negative)
[2022-04-06] MEDS: MELATONIN 5 MG TABLETS PO PRN (23:33)
[2022-04-07] MEDS: HYDROmorphone HCl 2 MG/ML VIAL IVPB PRN ×7 (04:16→23:54)
[2022-04-07] MEDS: GABAPENTIN 400 MG CAPSULE PO SCH ×3 (05:42→21:07)
[2022-04-07] MEDS: CEFTRIAXONE 2 GM in DEXTROSE 5%-WATER 100 ML IVPB SCH (09:49)
[2022-04-07] MEDS: APIXABAN 5 MG TABLET PO SCH ×2 (09:49→21:06)
[2022-04-07] MEDS: PANTOPRAZOLE SODIUM 40 MG VIAL IVPUSH SCH (09:49)
[2022-04-07] MEDS: FOLIC ACID 1 MG TABLET (FP) PO SCH (09:49)
[2022-04-07] MEDS ORDERED: DEXTROSE 5%-0.45% SALINE 1,000 ML IV SCH (14:45)
[2022-04-07] MEDS: SODIUM CHLORIDE 1,000 ML IV SCH (15:03)
[2022-04-07 19:56] LABS: BASO % 1.3 % (0-2.0); EOS % 0.2 % (0-4.5); HEMATOCRIT 25.8 % (32.4-45.2); HEMOGLOBIN 8.8 GM/dL (10.7-15.3); LYMPH % 12.1 % (8-40); MCH 29.7 pg (25.7-33.7); MCHC 34.1 g/dl (32.0-36.0); MEAN CELL VOLUME 86.9 fl (80-96); MEAN PLT VOLUME 8.7 fl (7.5-11.1); MONO % 12.5 % (3.8-10.2); NEUT % 73.9 % (42.8-82.8); PLATELET COUNT 446 10^3/uL (134-434); RBC 2.96 M/mm3 (3.60-5.2); RDW 18.8 % (11.6-15.6); WHITE BLOOD COUNT 10.8 K/mm3 (4.0-10.0)
[2022-04-07 20:10] LABS: CALCIUM 8.7 mg/dL (8.5-10.1)
[2022-04-07 20:11] LABS: ALBUMIN 2.6 g/dl (3.4-5.0); BLOOD UREA NITROGEN 4.7 mg/dL (7-18); MAGNESIUM 1.6 mg/dL (1.8-2.4)
[2022-04-07 20:14] LABS: CREATININE 0.6 mg/dL (0.55-1.3); PHOSPHOROUS 3.5 mg/dL (2.5-4.9)
[2022-04-07 20:15] LABS: BILIRUBIN,TOTAL 2.9 mg/dL (0.2-1); TOT PROT 7.5 g/dl (6.4-8.2)
[2022-04-07] MEDS: ACETAMINOPHEN 325 MG TABLET (FP) PO PRN (21:13)
[2022-04-07] MEDS: MELATONIN 5 MG TABLETS PO PRN (23:48)
[2022-04-08] MEDS: SODIUM CHLORIDE 1,000 ML IV SCH ×2 (01:35→16:06)
[2022-04-08] MEDS: HYDROmorphone HCl 2 MG/ML VIAL IVPB PRN ×7 (02:54→21:29)
[2022-04-08] MEDS: GABAPENTIN 400 MG CAPSULE PO SCH ×3 (05:25→21:36)
[2022-04-08 08:17] LABS: BASO % 0.6 % (0-2.0); CALCIUM 8.7 mg/dL (8.5-10.1); EOS % 0.3 % (0-4.5); HEMOGLOBIN 8.4 GM/dL (10.7-15.3); LYMPH % 7.1 % (8-40); MCH 29.4 pg (25.7-33.7); MCHC 33.7 g/dl (32.0-36.0); MEAN CELL VOLUME 87.3 fl (80-96); MEAN PLT VOLUME 9.3 fl (7.5-11.1); MONO % 14.7 % (3.8-10.2); NEUT % 77.3 % (42.8-82.8); RBC 2.87 M/mm3 (3.60-5.2); RDW 18.7 % (11.6-15.6); WHITE BLOOD COUNT 11.4 K/mm3 (4.0-10.0)
[2022-04-08 08:18] LABS: ALBUMIN 2.5 g/dl (3.4-5.0); BLOOD UREA NITROGEN 4.2 mg/dL (7-18); MAGNESIUM 1.5 mg/dL (1.8-2.4); PLATELET COUNT 352 10^3/uL (134-434)
[2022-04-08 08:21] LABS: CREATININE 0.4 mg/dL (0.55-1.3); PHOSPHOROUS 4.1 mg/dL (2.5-4.9)
[2022-04-08 08:22] LABS: BILIRUBIN,TOTAL 2.8 mg/dL (0.2-1); TOT PROT 7.3 g/dl (6.4-8.2)
[2022-04-08] MEDS: PANTOPRAZOLE SODIUM 40 MG VIAL IVPUSH SCH (09:00)
[2022-04-08] MEDS: APIXABAN 5 MG TABLET PO SCH ×2 (09:00→21:35)
[2022-04-08] MEDS: CEFTRIAXONE 2 GM in DEXTROSE 5%-WATER 100 ML IVPB SCH (09:00)
[2022-04-08] MEDS: FOLIC ACID 1 MG TABLET (FP) PO SCH (09:00)
[2022-04-08] MEDS ORDERED: MAGNESIUM SULF 50% (8.12 MEQ/2 ML-1 GM VIAL) IVPB ONE (11:30)
[2022-04-08] MEDS: ACETAMINOPHEN 325 MG TABLET (FP) PO PRN (17:47)
[2022-04-08] MEDS: MELATONIN 5 MG TABLETS PO PRN (21:36)
[2022-04-09] MEDS: HYDROmorphone HCl 2 MG/ML VIAL IVPB PRN ×8 (00:36→22:06)
[2022-04-09] MEDS: MELATONIN 5 MG TABLETS PO PRN ×2 (00:37→21:58)
[2022-04-09] MEDS: GABAPENTIN 400 MG CAPSULE PO SCH ×3 (05:26→22:01)
[2022-04-09 08:10] LABS: BASO % 0.7 % (0-2.0); EOS % 0.3 % (0-4.5); HEMATOCRIT 23.4 % (32.4-45.2); MCH 29.5 pg (25.7-33.7); MCHC 34.1 g/dl (32.0-36.0); MEAN CELL VOLUME 86.6 fl (80-96); MEAN PLT VOLUME 8.4 fl (7.5-11.1); MONO % 13.1 % (3.8-10.2); NEUT % 77.9 % (42.8-82.8); PLATELET COUNT 432 10^3/uL (134-434); RDW 19.3 % (11.6-15.6)
[2022-04-09 08:35] LABS: ALBUMIN 2.5 g/dl (3.4-5.0); BLOOD UREA NITROGEN 4.2 mg/dL (7-18); CALCIUM 8.6 mg/dL (8.5-10.1); MAGNESIUM 1.6 mg/dL (1.8-2.4)
[2022-04-09 08:37] LABS: CREATININE 0.5 mg/dL (0.55-1.3)
[2022-04-09 08:38] LABS: PHOSPHOROUS 4.1 mg/dL (2.5-4.9)
[2022-04-09 08:39] LABS: BILIRUBIN,TOTAL 3.5 mg/dL (0.2-1); TOT PROT 7.3 g/dl (6.4-8.2)
[2022-04-09] MEDS: FOLIC ACID 1 MG TABLET (FP) PO SCH (10:06)
[2022-04-09] MEDS: CEFTRIAXONE 2 GM in DEXTROSE 5%-WATER 100 ML IVPB SCH (10:06)
[2022-04-09] MEDS: APIXABAN 5 MG TABLET PO SCH ×2 (10:06→21:59)
[2022-04-09] MEDS: PANTOPRAZOLE SODIUM 40 MG VIAL IVPUSH SCH (10:07)
[2022-04-09] MEDS ORDERED: SODIUM CHLORIDE 1,000 ML IV SCH (10:15)
[2022-04-09] MEDS: ACETAMINOPHEN 325 MG TABLET (FP) PO PRN (10:46)
[2022-04-09] MEDS ORDERED: MAGNESIUM SULF 50% (8.12 MEQ/2 ML-1 GM VIAL) IVPB ONE ×2 (12:19)
[2022-04-09] MEDS ORDERED: MAGNESIUM OXIDE 400 MG TABLET (FP) PO ONE (15:00)
[2022-04-09] MEDS ORDERED: NAPH,MB-DB/K PH,MBDB POWDER PACKET PO ONE (15:00)
[2022-04-10] MEDS: HYDROmorphone HCl 2 MG/ML VIAL IVPB PRN ×3 (01:08→07:11)
[2022-04-10] MEDS: GABAPENTIN 400 MG CAPSULE PO SCH (05:40)
[2022-04-10 08:39] LABS: HEMATOCRIT 21.7 % (32.4-45.2); HEMOGLOBIN 7.3 GM/dL (10.7-15.3); MCH 29.2 pg (25.7-33.7); MCHC 33.7 g/dl (32.0-36.0); MEAN CELL VOLUME 86.5 fl (80-96); MEAN PLT VOLUME 8.7 fl (7.5-11.1); PLATELET COUNT 436 10^3/uL (134-434); RBC 2.51 M/mm3 (3.60-5.2); RDW 19.4 % (11.6-15.6); WHITE BLOOD COUNT 12.1 K/mm3 (4.0-10.0)
[2022-04-10 09:04] LABS: ALBUMIN 2.4 g/dl (3.4-5.0)
[2022-04-10 09:05] LABS: BILIRUBIN,TOTAL 3.4 mg/dL (0.2-1); TOT PROT 7.2 g/dl (6.4-8.2)
[2022-04-10 09:06] LABS: CALCIUM 8.9 mg/dL (8.5-10.1)
[2022-04-10 09:07] LABS: MAGNESIUM 1.6 mg/dL (1.8-2.4); PHOSPHOROUS 3.9 mg/dL (2.5-4.9)
[2022-04-10] MEDS ORDERED: MAGNESIUM OXIDE 400 MG TABLET (FP) PO ONE (09:09)
[2022-04-10 09:13] LABS: BLOOD UREA NITROGEN 4.8 mg/dL (7-18); CREATININE 0.5 mg/dL (0.55-1.3)
[2022-04-10] MEDS: CEFTRIAXONE 2 GM in DEXTROSE 5%-WATER 100 ML IVPB SCH (09:22)
[2022-04-10] MEDS: FOLIC ACID 1 MG TABLET (FP) PO SCH (09:22)
[2022-04-10] MEDS: PANTOPRAZOLE SODIUM 40 MG VIAL IVPUSH SCH (09:22)
[2022-04-10] MEDS: APIXABAN 5 MG TABLET PO SCH (09:22)
[2022-04-10 09:24] LABS: ANISOCYTOSIS 1+; TARGET CELLS 1+
[2022-04-10] MEDS ORDERED: oxyCODONE HCL 5 MG TABLET PO PRN (10:10)
[2022-04-10 13:45] VITALS: BP 106/60; PULSE 106; RESP 24; TEMP 100.4
== END 2022-04-10 12:00 | disposition left against medical advice (07) | DRG 314 ==
LOC: JER 10:05 → JERBED 18:31 → JICU 23:09 → J4W 04-03 16:49
PROVIDERS: ADMIT Internal Medicine Pulmonary Disease; ATTEND Internal Medicine
PROC: 30233N1 Transfusion of Nonautologous Red Blood Cells into Peripheral Vein, Percutaneous Approach (ICD-10-PCS; principal; 2022-03-31)
DX: T80.211A Bloodstream infection due to central venous catheter, initial encounter (principal); A41.9 Sepsis, unspecified organism; D57.00 Hb-SS disease with crisis, unspecified; I33.0 Acute and subacute infective endocarditis; K76.6 Portal hypertension; F11.20 Opioid dependence, uncomplicated; J98.11 Atelectasis; Z86.718 Personal history of other venous thrombosis and embolism; Z79.01 Long term (current) use of anticoagulants; F39 Unspecified mood [affective] disorder; I10 Essential (primary) hypertension; M79.89 Other specified soft tissue disorders; Y83.8 Other surgical procedures as the cause of abnormal reaction of the patient, or of later complication, without mention of misadventure at the time of the procedure; Z53.29 Procedure and treatment not carried out because of patient's decision for other reasons
CPT/HCPCS: 0241U-QW; 36415; 36430; 36511; 71045-TC-FY; 71275-TC; 74177-TC; 76700-TC; 80053; 81003; 83021; 83690; 83735; 84100; 84703; 85025; 85027; 85045; 85610; 85660; 85730; 86850; 86900; 86901; 86902; 86922; 87040; 87086; 87186; 87804; 87899; 93005; 93010; 93306-TC; 93971; 99291; C9803-CS; P9016; Q9967; U0003; U0005

== ENCOUNTER 2022-05-26 10:01 | Emergency (ER) | payer OTHER ==
[2022-05-26 10:14] VITALS: BP 112/64; PULSE 78; RESP 18; TEMP 98.5; BMI 31.6
[2022-05-26] MEDS ORDERED: SODIUM CHLORIDE 0.9% 500 ML INFUS.BAG IV ONE (10:48)
[2022-05-26] MEDS ORDERED: HYDROmorphone HCl 2 MG/ML VIAL IVPUSH ONE ×2 (10:49→12:24)
[2022-05-26] MEDS ORDERED: HYDROmorphone HCl 2 MG/ML VIAL ONE ×2 (10:52→12:28)
[2022-05-26 12:05] LABS: HEMATOCRIT 26.6 % (32.4-45.2); HEMOGLOBIN 9.1 GM/dL (10.7-15.3); RBC 2.68 M/mm3 (3.60-5.2); WHITE BLOOD COUNT 4.6 K/mm3 (4.0-10.0)
[2022-05-26 12:06] LABS: MCHC 34.3 g/dl (32.0-36.0); MEAN PLT VOLUME 7.8 fl (7.5-11.1); PLATELET COUNT 265 10^3/uL (134-434); RDW 19.4 % (11.6-15.6)
[2022-05-26 12:19] LABS: CALCIUM 8.9 mg/dL (8.5-10.1)
[2022-05-26 12:20] LABS: ALBUMIN 2.8 g/dl (3.4-5.0); BLOOD UREA NITROGEN 6.9 mg/dL (7-18)
[2022-05-26 12:23] LABS: CREATININE 0.6 mg/dL (0.55-1.3)
[2022-05-26 12:24] LABS: BILIRUBIN,TOTAL 1.8 mg/dL (0.2-1); TOT PROT 8.8 g/dl (6.4-8.2)
[2022-05-26 12:44] LABS: ANISOCYTOSIS 1+; MACROCYTOSIS 1+; SICKELED CELLS 1+; TARGET CELLS 1+; TEAR DROP CELLS 1+
== END 2022-05-26 15:12 | disposition home or self-care (01) ==
LOC: JER 10:01
PROC: 3E033GC Introduction of Other Therapeutic Substance into Peripheral Vein, Percutaneous Approach (ICD-10-PCS; principal; 2022-05-26)
PROC: 3E033GC Introduction of Other Therapeutic Substance into Peripheral Vein, Percutaneous Approach (ICD-10-PCS; 2022-05-26)
DX: D57.219 Sickle-cell/Hb-C disease with crisis, unspecified (principal); M25.512 Pain in left shoulder; M54.9 Dorsalgia, unspecified
CPT/HCPCS: 36415; 71046-TC-FY; 80053; 84484; 84703; 85025; 85045; 93005; 93010; 99285-25

== ENCOUNTER 2022-07-05 04:31 | Emergency (ER) | payer OTHER ==
[2022-07-05 04:40] VITALS: RESP 18; BMI 32.5
[2022-07-05] MEDS: ACETAMINOPHEN 325 MG TABLET (FP) PO ONE ×2 (05:33→05:41)
[2022-07-05] MEDS ORDERED: ACETAMINOPHEN 325 MG TABLET (FP) ONE (05:35)
[2022-07-05 06:00] LABS: VENOUS BASE EXCESS 2.2 mmol/L (-2-2); VENOUS O2 SATURATION 76.3 % (70-80); VENOUS PCO2 47.2 mmHg (38-52); VENOUS PH 7.386 (7.310-7.410)
[2022-07-05 06:27] VITALS: BP 112/59; PULSE 70; TEMP 97.9
[2022-07-05 06:29] LABS: POTASSIUM 3.8 mmol/L (3.5-5.1)
[2022-07-05 06:32] LABS: BLOOD UREA NITROGEN 9.3 mg/dL (7-18)
[2022-07-05 06:36] LABS: CREATININE 0.6 mg/dL (0.55-1.3)
[2022-07-05 06:37] LABS: BILIRUBIN,TOTAL 2.2 mg/dL (0.2-1); TOT PROT 8.5 g/dl (6.4-8.2)
[2022-07-05 06:38] LABS: ALBUMIN 3.1 g/dl (3.4-5.0)
[2022-07-05 06:51] LABS: HEMATOCRIT 25.1 % (32.4-45.2); MCH 32.6 pg (25.7-33.7); MCHC 35.8 g/dl (32.0-36.0); MEAN CELL VOLUME 90.9 fl (80-96); PLATELET COUNT 236 10^3/uL (134-434); RBC 2.76 M/mm3 (3.60-5.2); RDW 18.7 % (11.6-15.6); RETICULOCYTES 7.67 % (0.5-1.5); WHITE BLOOD COUNT 7.2 K/mm3 (4.0-10.0)
[2022-07-05 09:02] LABS: ANISOCYTOSIS 1+; MACROCYTOSIS 2+; SICKELED CELLS 2+
== END 2022-07-05 06:50 | disposition left against medical advice (07) ==
LOC: JER 04:31
PROC: 3E033GC Introduction of Other Therapeutic Substance into Peripheral Vein, Percutaneous Approach (ICD-10-PCS; principal; 2022-07-05)
DX: D57.219 Sickle-cell/Hb-C disease with crisis, unspecified (principal)
CPT/HCPCS: 36415; 80053; 82803; 84703; 85025; 85045; 99284-25

== ENCOUNTER 2022-07-09 10:52 | Observation (INO) | payer OTHER ==
[2022-07-09] MEDS ORDERED: HYDROmorphone HCl 2 MG/ML VIAL IVPUSH ONE ×3 (11:37→17:33)
[2022-07-09] MEDS ORDERED: SODIUM CHLORIDE 0.9% 500 ML INFUS.BAG IV ONE (12:29)
[2022-07-09] MEDS ORDERED: HYDROmorphone HCl 2 MG/ML VIAL ONE ×4 (12:52→22:27)
[2022-07-09 13:05] LABS: HEMATOCRIT 17.2 % (32.4-45.2); MCH 31.1 pg (25.7-33.7); MCHC 34.4 g/dl (32.0-36.0); MEAN CELL VOLUME 90.5 fl (80-96); MEAN PLT VOLUME 7.7 fl (7.5-11.1); PLATELET COUNT 161 10^3/uL (134-434); RDW 18.7 % (11.6-15.6); WHITE BLOOD COUNT 4.9 K/mm3 (4.0-10.0)
[2022-07-09 13:11] LABS: POTASSIUM 3.9 mmol/L (3.5-5.1)
[2022-07-09 13:13] LABS: ALBUMIN 3.3 g/dl (3.4-5.0); BLOOD UREA NITROGEN 7.9 mg/dL (7-18); CALCIUM 9.4 mg/dL (8.5-10.1)
[2022-07-09 13:16] LABS: CREATININE 0.6 mg/dL (0.55-1.3)
[2022-07-09 13:18] LABS: BILIRUBIN,TOTAL 2.6 mg/dL (0.2-1); TOT PROT 8.9 g/dl (6.4-8.2)
[2022-07-09] MEDS ORDERED: ONDANSETRON 4 MG/2 ML VIAL ONE (13:19)
[2022-07-09] MEDS ORDERED: ONDANSETRON 4 MG/2 ML VIAL IVPUSH ONE (13:57)
[2022-07-09 14:08] LABS: ANISOCYTOSIS 3+; MACROCYTOSIS 2+; SICKELED CELLS 3+; TARGET CELLS 2+
[2022-07-09] MEDS ORDERED: HYDROmorphone HCl 2 MG/ML VIAL IVPUSH SCH (21:58)
[2022-07-09 22:46] LABS: HEMATOCRIT 27.2 % (32.4-45.2); HEMOGLOBIN 9.4 GM/dL (10.7-15.3); MCH 31.1 pg (25.7-33.7); MCHC 34.7 g/dl (32.0-36.0); MEAN CELL VOLUME 89.7 fl (80-96); MEAN PLT VOLUME 7.8 fl (7.5-11.1); PLATELET COUNT 209 10^3/uL (134-434); RBC 3.03 M/mm3 (3.60-5.2); RDW 19.4 % (11.6-15.6); WHITE BLOOD COUNT 7.2 K/mm3 (4.0-10.0)
[2022-07-09] MEDS ORDERED: HYDROmorphone HCl 2 MG/ML VIAL IVPUSH PRN (22:47)
[2022-07-09] MEDS: DEXTROSE 5%-0.45% SALINE 1,000 ML IV SCH (22:55)
[2022-07-09 23:35] LABS: ANISOCYTOSIS 2+; MACROCYTOSIS 1+; SICKELED CELLS 1+; TARGET CELLS 2+; TOXIC GRANULATION 0
[2022-07-09 23:37] LABS: URINE APPEARANCE CLEAR; URINE BILIRUBIN NEGATIVE (NEGATIVE); URINE COLOR DK YELLOW; URINE GLUCOSE (UA) NEGATIVE (NEGATIVE); URINE KETONE NEGATIVE (NEGATIVE); URINE LEUK ESTERASE NEGATIVE (NEGATIVE); URINE NITRITE NEGATIVE (NEGATIVE); URINE PROTEIN 1+ (NEGATIVE)
[2022-07-09 23:38] LABS: EPI CELLS 11.2 /uL (0-25.1); URINE RBC 55.3 /uL (0-23.9)
[2022-07-09 23:39] LABS: HYALINE CASTS 0.57 /uL (0-3.1); URINE BACTERIA 94.9 /uL (0-1359)
[2022-07-10] MEDS: oxyCODONE HCL 10 MG SUSTAINED ACTING TABLET PO SCH ×3 (00:47→13:30)
[2022-07-10] MEDS: HYDROmorphone HCl 2 MG/ML VIAL IVPUSH PRN ×4 (03:04→15:06)
[2022-07-10 04:07] VITALS: BMI 33.4
[2022-07-10 08:51] VITALS: RESP 18
[2022-07-10] MEDS ORDERED: APIXABAN 5 MG TABLET PO SCH ×2 (10:00)
[2022-07-10] MEDS ORDERED: HYDROXYUREA 500 MG CAPSULE PO SCH (10:00)
[2022-07-10 12:46] LABS: HEMATOCRIT 26.2 % (32.4-45.2); HEMOGLOBIN 9.2 GM/dL (10.7-15.3); MCH 31.3 pg (25.7-33.7); MCHC 35.4 g/dl (32.0-36.0); MEAN CELL VOLUME 88.5 fl (80-96); MEAN PLT VOLUME 8.2 fl (7.5-11.1); PLATELET COUNT 217 10^3/uL (134-434); RBC 2.96 M/mm3 (3.60-5.2); RDW 19.8 % (11.6-15.6); WHITE BLOOD COUNT 7.6 K/mm3 (4.0-10.0)
[2022-07-10 13:04] LABS: POTASSIUM 4.1 mmol/L (3.5-5.1)
[2022-07-10 13:06] LABS: CALCIUM 8.9 mg/dL (8.5-10.1)
[2022-07-10 13:07] LABS: ALBUMIN 3.5 g/dl (3.4-5.0); BLOOD UREA NITROGEN 6.9 mg/dL (7-18); MAGNESIUM 1.8 mg/dL (1.8-2.4)
[2022-07-10 13:09] LABS: BILIRUBIN,DIRECT 1.4 mg/dL (0.0-0.2); CREATININE 0.6 mg/dL (0.55-1.3)
[2022-07-10 13:10] LABS: PHOSPHOROUS 3.8 mg/dL (2.5-4.9)
[2022-07-10 13:11] LABS: BILIRUBIN,TOTAL 3.2 mg/dL (0.2-1); TOT PROT 8.9 g/dl (6.4-8.2)
[2022-07-10] MEDS: DEXTROSE 5%-0.45% SALINE 1,000 ML IV SCH (14:37)
[2022-07-10 15:29] VITALS: BP 139/65; PULSE 74; TEMP 97.7
[2022-07-10] MEDS ORDERED: diphenhydrAMINE HCL 25 MG CAPSULE (FP) PO ONE (17:37)
== END 2022-07-10 18:22 | disposition home or self-care (01) ==
LOC: JER 10:52 → JERBED 17:46 → J4W 07-10 00:16
PROVIDERS: ADMIT Internal Medicine; ATTEND Internal Medicine
PROC: 3E0337Z Introduction of Electrolytic and Water Balance Substance into Peripheral Vein, Percutaneous Approach (ICD-10-PCS; principal; 2022-07-09)
PROC: 3E033GC Introduction of Other Therapeutic Substance into Peripheral Vein, Percutaneous Approach (ICD-10-PCS; 2022-07-09)
PROC: 3E033NZ Introduction of Analgesics, Hypnotics, Sedatives into Peripheral Vein, Percutaneous Approach (ICD-10-PCS; 2022-07-09)
DX: K74.60 Unspecified cirrhosis of liver (principal); I85.00 Esophageal varices without bleeding; K76.6 Portal hypertension; Z29.8 Encounter for other specified prophylactic measures; Z79.01 Long term (current) use of anticoagulants; E66.8 Other obesity; Z68.33 Body mass index [BMI] 33.0-33.9, adult; Z88.8 Allergy status to other drugs, medicaments and biological substances; Z88.5 Allergy status to narcotic agent
CPT/HCPCS: 0241U-QW; 36415; 36430; 36511; 71046-TC-FY; 80053; 81003; 82248; 83615; 83735; 84100; 84484; 85025; 85027; 85045; 86850; 86900; 86901; 86922; 87086; 93005; 93010; 96365; 96375; 96376; 99285-25; G0378; J8999; P9038; P9058

== ENCOUNTER 2022-08-26 05:43 | Emergency (ER) | payer OTHER ==
[2022-08-26 06:20] VITALS: TEMP 98.2; BMI 32.4
[2022-08-26] MEDS ORDERED: HYDROmorphone HCl 2 MG/ML VIAL IVPUSH ONE ×4 (07:20→10:13)
[2022-08-26] MEDS ORDERED: SODIUM CHLORIDE 0.9% 500 ML INFUS.BAG IV ONE (07:21)
[2022-08-26] MEDS ORDERED: ONDANSETRON 4 MG/2 ML VIAL IVPB ONE (07:37)
[2022-08-26] MEDS ORDERED: HYDROmorphone HCl 2 MG/ML VIAL ONE ×4 (07:46→10:15)
[2022-08-26] MEDS ORDERED: ONDANSETRON 4 MG/2 ML VIAL ONE (07:46)
[2022-08-26 09:17] VITALS: RESP 16
[2022-08-26 09:20] LABS: BASO % 1.1 % (0-2.0); EOS % 0.4 % (0-4.5); HEMATOCRIT 29.5 % (32.4-45.2); HEMOGLOBIN 9.8 GM/dL (10.7-15.3); LYMPH % 7.3 % (8-40); MCH 29.7 pg (25.7-33.7); MCHC 33.3 g/dl (32.0-36.0); MEAN CELL VOLUME 89.1 fl (80-96); MEAN PLT VOLUME 8.5 fl (7.5-11.1); MONO % 15.5 % (3.8-10.2); NEUT % 75.7 % (42.8-82.8); PLATELET COUNT 232 10^3/uL (134-434); RBC 3.31 M/mm3 (3.60-5.2); RDW 19.6 % (11.6-15.6); RETICULOCYTES 6.16 % (0.5-1.5); WHITE BLOOD COUNT 6.7 K/mm3 (4.0-10.0)
[2022-08-26 09:59] LABS: POTASSIUM 4.3 mmol/L (3.5-5.1)
[2022-08-26 10:02] LABS: BLOOD UREA NITROGEN 8.4 mg/dL (7-18); CALCIUM 9.2 mg/dL (8.5-10.1)
[2022-08-26 10:03] LABS: ALBUMIN 3.5 g/dl (3.4-5.0)
[2022-08-26 10:05] LABS: CREATININE 0.6 mg/dL (0.55-1.3)
[2022-08-26 10:07] LABS: BILIRUBIN,TOTAL 2.8 mg/dL (0.2-1); TOT PROT 8.6 g/dl (6.4-8.2)
[2022-08-26] MEDS ORDERED: HYDROmorphone HCl 2 MG/ML VIAL IVPB ONE (11:04)
[2022-08-26] MEDS ORDERED: DEXTROSE 5%-NORMAL SALINE 500 ML IV ONE (11:29)
[2022-08-26 12:32] VITALS: BP 104/70; PULSE 70
== END 2022-08-26 12:33 | disposition home or self-care (01) ==
LOC: JER 05:43
PROC: 3E033GC Introduction of Other Therapeutic Substance into Peripheral Vein, Percutaneous Approach (ICD-10-PCS; principal; 2022-08-26)
PROC: 3E033GC Introduction of Other Therapeutic Substance into Peripheral Vein, Percutaneous Approach (ICD-10-PCS; 2022-08-26)
PROC: 3E033GC Introduction of Other Therapeutic Substance into Peripheral Vein, Percutaneous Approach (ICD-10-PCS; 2022-08-26)
PROC: 3E033GC Introduction of Other Therapeutic Substance into Peripheral Vein, Percutaneous Approach (ICD-10-PCS; 2022-08-26)
PROC: 3E033GC Introduction of Other Therapeutic Substance into Peripheral Vein, Percutaneous Approach (ICD-10-PCS; 2022-08-26)
PROC: 3E033GC Introduction of Other Therapeutic Substance into Peripheral Vein, Percutaneous Approach (ICD-10-PCS; 2022-08-26)
PROC: 3E033GC Introduction of Other Therapeutic Substance into Peripheral Vein, Percutaneous Approach (ICD-10-PCS; 2022-08-26)
PROC: 3E033GC Introduction of Other Therapeutic Substance into Peripheral Vein, Percutaneous Approach (ICD-10-PCS; 2022-08-26)
PROC: 3E033GC Introduction of Other Therapeutic Substance into Peripheral Vein, Percutaneous Approach (ICD-10-PCS; 2022-08-26)
DX: R53.1 Weakness (principal); R07.81 Pleurodynia; D57.219 Sickle-cell/Hb-C disease with crisis, unspecified; M79.10 Myalgia, unspecified site; R22.43 Localized swelling, mass and lump, lower limb, bilateral
CPT/HCPCS: 36415; 71046-TC-FY; 80053; 83615; 85025; 85045; 87807; 93005; 93010

== ENCOUNTER 2022-10-11 09:43 | Emergency (ER) | payer OTHER ==
[2022-10-11 09:52] VITALS: BMI 24.2
[2022-10-11] MEDS ORDERED: HYDROmorphone HCl 2 MG/ML VIAL IVPB ONE ×2 (10:47→13:25)
[2022-10-11] MEDS ORDERED: HYDROmorphone HCl 2 MG/ML VIAL ONE ×2 (11:02→13:27)
[2022-10-11 11:46] LABS: HEMATOCRIT 25.3 % (32.4-45.2); HEMOGLOBIN 8.8 GM/dL (10.7-15.3); MCH 30.3 pg (25.7-33.7); MCHC 34.7 g/dl (32.0-36.0); MEAN CELL VOLUME 87.4 fl (80-96); MEAN PLT VOLUME 8.4 fl (7.5-11.1); PLATELET COUNT 196 10^3/uL (134-434); RDW 22.2 % (11.6-15.6)
[2022-10-11 11:47] LABS: WHITE BLOOD COUNT 9.9 K/mm3 (4.0-10.0)
[2022-10-11 12:08] LABS: ANISOCYTOSIS 1+; MACROCYTOSIS 1+; SICKELED CELLS 2+; TARGET CELLS 2+
[2022-10-11 12:10] LABS: POTASSIUM 3.6 mmol/L (3.5-5.1)
[2022-10-11 12:15] LABS: ALBUMIN 3.8 g/dl (3.4-5.0); BLOOD UREA NITROGEN 6.8 mg/dL (7-18); CALCIUM 8.9 mg/dL (8.5-10.1)
[2022-10-11 12:19] LABS: CREATININE 0.6 mg/dL (0.55-1.3)
[2022-10-11 12:20] LABS: BILIRUBIN,TOTAL 4.7 mg/dL (0.2-1); TOT PROT 8.4 g/dl (6.4-8.2)
[2022-10-11] MEDS ORDERED: DEXTROSE 5%-0.45% SALINE 1,000 ML IV SCH (13:30)
[2022-10-11 14:39] VITALS: BP 115/72; PULSE 95; RESP 18; TEMP 98
== END 2022-10-11 14:43 | disposition home or self-care (01) ==
LOC: JER 09:43
PROC: 3E033GC Introduction of Other Therapeutic Substance into Peripheral Vein, Percutaneous Approach (ICD-10-PCS; principal; 2022-10-11)
PROC: 3E033GC Introduction of Other Therapeutic Substance into Peripheral Vein, Percutaneous Approach (ICD-10-PCS; 2022-10-11)
PROC: 3E033GC Introduction of Other Therapeutic Substance into Peripheral Vein, Percutaneous Approach (ICD-10-PCS; 2022-10-11)
PROC: 3E033GC Introduction of Other Therapeutic Substance into Peripheral Vein, Percutaneous Approach (ICD-10-PCS; 2022-10-11)
DX: D57.219 Sickle-cell/Hb-C disease with crisis, unspecified (principal); R07.9 Chest pain, unspecified; R07.81 Pleurodynia
CPT/HCPCS: 36415; 71045-TC-FY; 80053; 85025; 85045; 86850; 86900; 86901; 93005; 93010; 99285-25

== ENCOUNTER 2023-02-06 18:57 | Observation (INO) | payer OTHER ==
[2023-02-06 19:10] VITALS: RESP 18; BMI 28.8
[2023-02-06] MEDS ORDERED: ACETAMINOPHEN 500 MG TABLET (FP) PO ONE (23:10)
[2023-02-07 00:25] LABS: HEMATOCRIT 25.4 % (32.4-45.2); HEMOGLOBIN 8.8 GM/dL (10.7-15.3); MCH 30.4 pg (25.7-33.7); MCHC 34.6 g/dl (32.0-36.0); MEAN CELL VOLUME 87.8 fl (80-96); MEAN PLT VOLUME 8.1 fl (7.5-11.1); PLATELET COUNT 236 10^3/uL (134-434); RBC 2.89 M/mm3 (3.60-5.2); RDW 23.5 % (11.6-15.6); RETICULOCYTES 9.29 % (0.5-1.5); WHITE BLOOD COUNT 5.3 K/mm3 (4.0-10.0)
[2023-02-07 00:43] LABS: POTASSIUM 4.3 mmol/L (3.5-5.1)
[2023-02-07 00:44] LABS: CALCIUM 8.8 mg/dL (8.5-10.1)
[2023-02-07 00:45] LABS: ALBUMIN 3.6 g/dl (3.4-5.0); BLOOD UREA NITROGEN 6.8 mg/dL (7-18)
[2023-02-07 00:48] LABS: CREATININE 0.6 mg/dL (0.55-1.3)
[2023-02-07 00:49] LABS: BILIRUBIN,TOTAL 3.2 mg/dL (0.2-1); TOT PROT 8.1 g/dl (6.4-8.2)
[2023-02-07] MEDS ORDERED: HYDROmorphone HCl 2 MG/ML VIAL IM ONE (01:58)
[2023-02-07] MEDS ORDERED: HYDROmorphone HCl 2 MG/ML VIAL ONE (02:00)
[2023-02-07] MEDS ORDERED: SODIUM CHLORIDE 0.9% 500 ML INFUS.BAG IV ONE (02:24)
[2023-02-07] MEDS ORDERED: HYDROmorphone HCl 2 MG/ML VIAL IVPB PRN ×2 (02:38→03:58)
[2023-02-07] MEDS ORDERED: HYDROmorphone HCl 2 MG/ML VIAL IVPUSH ONE (06:35)
[2023-02-07 06:45] VITALS: BP 115/56; PULSE 83; TEMP 98.6
[2023-02-07] MEDS ORDERED: REMDESIVIR 200 MG in SODIUM CHLORIDE 250 ML IVPB ONE (09:30)
[2023-02-08] MEDS ORDERED: REMDESIVIR 100 MG in SODIUM CHLORIDE 250 ML IVPB SCH (10:00)
== END 2023-02-07 07:00 | disposition left against medical advice (07) ==
LOC: JER 18:57 → JERBED 02-07 05:46
PROVIDERS: ADMIT Internal Medicine; ATTEND Internal Medicine
PROC: 3E023GC Introduction of Other Therapeutic Substance into Muscle, Percutaneous Approach (ICD-10-PCS; principal; 2023-02-07)
PROC: 3E033GC Introduction of Other Therapeutic Substance into Peripheral Vein, Percutaneous Approach (ICD-10-PCS; 2023-02-07)
PROC: 3E023NZ Introduction of Analgesics, Hypnotics, Sedatives into Muscle, Percutaneous Approach (ICD-10-PCS; 2023-02-07)
PROC: 3E0337Z Introduction of Electrolytic and Water Balance Substance into Peripheral Vein, Percutaneous Approach (ICD-10-PCS; 2023-02-07)
DX: U07.1 COVID-19 (principal); R07.9 Chest pain, unspecified; D57.00 Hb-SS disease with crisis, unspecified; Z88.8 Allergy status to other drugs, medicaments and biological substances; Z88.6 Allergy status to analgesic agent
CPT/HCPCS: 0241U-QW; 36415; 71046-TC-FY; 80053; 83615; 84703; 85027; 85045; 86850; 86900; 86901; 96372; 96374; 96375; 96376; 99285-25; G0378